=== PATIENT | male | born 1940 | race Caucasian/White ===

== ENCOUNTER → 2016-12-20 | Outpatient (CLI) | payer MEDICARE, OTHER ==
--- NOTE | 2016-12-20 15:24 | CT ---
EXAMINATION TYPE: CT angio chest DATE OF EXAM: 12/20/2016 3:13 PM COMPARISON: Previous study dated 01/10/2015 HISTORY: Pt states of bilateral leg swelling and SOB x2 weeks. CT DLP: 1157.1 mGycm Automated exposure control for dose reduction was used. CONTRAST: CTA scan of the thorax is performed without and with IV Contrast, patient injected with 80 mL of Omni paque 350, pulmonary embolism protocol. . FINDINGS: There is some dependent atelectasis in the dependent portions of both lungs. The lungs are otherwise clear. There is a 3.1 cm left thyroid nodule, unchanged from previous. There is mild right-sided gynecomastia. There is no significant axillary, mediastinal or hilar adenopathy. Heart size is upper limits of normal. There is no pleural or pericardial fluid. The aorta is normal in caliber without evidence of dissection. There is no evidence of pulmonary embolus. Note is made of a previous cholecystectomy. Visualized portions of the upper abdomen are otherwise un remarkable. There is hypertrophic spondylosis within the spine. IMPRESSION: 1. THIS EXAMINATION IS NEGATIVE FOR PULMONARY EMBOLUS. 2. STABLE, 3.1 CM LEFT THYROID NODULE. 3. MILD GYNECOMASTIA ON THE RIGHT. 4. DEGENERATIVE CHANGE WITHIN THE SPINE.
== END | disposition home or self-care (01) ==
LOC: RADCTMAIN 14:23
PROVIDERS: ATTEND Family Medicine
DX: R79.1 Abnormal coagulation profile (principal)
CPT/HCPCS: 71275; Q9967

== ENCOUNTER 2017-01-22 11:07 | Day surgery (SDC) | payer MEDICARE, OTHER ==
[2017-01-20 15:32] VITALS: BMI 37.3
[~2017-01-22 11:07] MED LIST: ALPRAZolam 0.25 MG TAB PO PRN; ASPIRIN 325 MG TAB PO ONE; SODIUM CHLORIDE 0.9% 1,000 ML in EMPTY BAG 1 BAG IV ONE
[2017-01-22 11:49] LABS: Basophils % (A) 1 %; CH 30.2; CHCM 32.3; Eosinophils # (A) 0.2 k/uL (0-0.7); Eosinophils % (A) 3 %; HCT 36.3 % (39.0-53.0); HDW 2.65; HGB 12.2 gm/dL (13.0-17.5); Luc # (Auto) 0.19; Luc % (Auto) 3; Lymphocytes % (A) 28 %; MCH 31.4 pg (25.0-35.0); MCHC 33.6 g/dL (31.0-37.0); MCV 93.7 fL (80.0-100.0); Monocytes # (A) 0.6 k/uL (0-1.0); Monocytes % (A) 8 %; Neutrophils # (A) 4.2 k/uL (1.3-7.7); Neutrophils % (A) 59 %; RBC 3.88 m/uL (4.30-5.90); RDW 13.3 % (11.5-15.5); WBC 7.1 k/uL (3.8-10.6)
[2017-01-22 12:02] LABS: Anion Gap 10 mmol/L; Blood Urea Nitrogen 23 mg/dL (9-20); Calcium 9.3 mg/dL (8.4-10.2); Carbon Dioxide 24 mmol/L (22-30); Chloride 109 mmol/L (98-107); Glucose 111 mg/dL (74-99); Non-African American GFR(MDRD) >60 (>60 ml/min/1.73 sqM); Potassium 4.5 mmol/L (3.5-5.1); Sodium 143 mmol/L (137-145)
[2017-01-22] MEDS ORDERED: LIDOCAINE 2% INJ 20 MG/ML (20 ML MDV) ONE (13:33)
[2017-01-22] MEDS ORDERED: fentaNYL (PF) 50 MCG/ML 2 ML AMP ONE (13:44)
[2017-01-22] MEDS ORDERED: MIDAZOLAM 2 MG/2 ML VIAL ONE (13:44)
[2017-01-22] MEDS: MIDAZOLAM 2 MG/2 ML VIAL IV ONE ×2 (13:49→13:58)
[2017-01-22] MEDS ORDERED: fentaNYL (PF) 50 MCG/ML 2 ML AMP IV ONE (13:49)
[2017-01-22] MEDS ORDERED: LIDOCAINE 2% INJ 20 MG/ML SQ ONE (13:59)
[2017-01-22] MEDS ORDERED: RX INFO: IV CONTRAST WAS GIVEN 1 EACH MISC MISCELLANE PRN (14:19)
[2017-01-22] MEDS: Acetaminophen-Codeine 300-30mg TAB PO PRN (16:48)
[2017-01-22] MEDS: SODIUM CHLORIDE 0.9% 1,000 ML IV SCH (20:12)
--- NOTE | 2017-01-22 20:58 | CC ---
DATE OF SERVICE: Mr. Delgado has been having intermittent episodes of chest pain and shortness of breath. Stress test showed evidence of inferobasal ischemia. In view of that, the patient was recommended to have a cardiac catheterization for definitive diagnosis. PROCEDURE: The right groin was prepped and draped in the usual manner and the skin was infiltrated with 2% Xylocaine. The right femoral artery was entered using Seldinger technique. A #6 Tajik sheath was placed in. Selective coronary angiography was then performed in multiple projections and left ventricular pressures were obtained. Patient tolerated the procedure well. HEMODYNAMICS: Left ventricular end-diastolic pressure was 24 to 28 mmHg prior to angiography. No gradient was noted across the aortic valve. SELECTIVE CORONARY ANGIOGRAPHY: Left main coronary artery is normal and patent. LAD is a good-caliber blood vessel and gives rise to good-sized diagonal branch. LAD and its branches are normal. Circumflex coronary artery gives rise to good-sized obtuse marginal branch. Circumflex coronary artery and its branches are normal. Right coronary artery is dominant in distribution and gives rise to the PDA and PLV branches. Right coronary artery and its branches are normal. FINAL IMPRESSION: This study reveals normal coronary arteries and left ventricular end-diastolic pressure is elevated. RECOMMENDATIONS: Continue medical treatment.
[2017-01-23] MEDS: Acetaminophen-Codeine 300-30mg TAB PO PRN (04:36)
[2017-01-23] MEDS: SODIUM CHLORIDE 0.9% 1,000 ML IV SCH (04:36)
[2017-01-23 08:14] VITALS: RESP 18
[2017-01-23] MEDS ORDERED: FUROSEMIDE 20 MG TAB PO SCH (09:00)
[2017-01-23] MEDS ORDERED: LISINOPRIL 20 MG TAB PO SCH (09:00)
[2017-01-23] MEDS ORDERED: PARoxetine 20 MG TAB PO SCH (09:00)
[2017-01-23 11:49] VITALS: BP 121/49; PULSE 79; TEMP 98.5
--- NOTE | 2017-01-23 12:19 | PN ---
Mr. Delgado underwent a cardiac catheterization yesterday. He was found to have normal coronary arteries. He is feeling well. The results of the cardiac catheterization were discussed with the patient. He is feeling well, right groin is normal. There is no evidence of any hematoma. First and second heart sounds are normal. Lungs are clear to auscultation and percussion. Patient is discharged home and he will follow up with Dr. Ann.
--- NOTE | 2017-01-29 10:45 | CDI ---
Mr. Delgado was seen on 01/22 for a cardiac catheterization. Per the anesthesia note the IV sedation box was checked and per the surgical profile report Versed is noted to be administered at 1349. Per new CMS (Centers for Medicare and Medicaid Services) guidelines there is a change by which the work of moderate/conscious sedation will be reimbursed separately. Further clarification of the documentation of IV sedation is needed for proper reporting purposes. Please clarify the type of sedation this patient received during the cardiac catheterization. Moderate/conscious sedation MAC (unconscious sedation) General Anesthesia Other (please specify) Please document your findings in an addendum to the Procedure Note. If you have any questions about this query, you may contact Software Solutions Architect, Caro Mcdaniel at between 8am and 6pm Friday-Friday Thank you for your time. SUZI Lyn
--- NOTE | 2017-02-26 09:02 | CDI ---
Mr. Delgado was seen on 01/22 for a cardiac catheterization. Per the anesthesia note the IV sedation box was checked and per the surgical profile report Versed is noted to be administered at 1349. Per new CMS (Centers for Medicare and Medicaid Services) guidelines there is a change by which the work of moderate/conscious sedation will be reimbursed separately. Further clarification of the documentation of IV sedation is needed for proper reporting purposes. Please clarify the type of sedation this patient received during the cardiac catheterization. Moderate/conscious sedation MAC (unconscious sedation) General Anesthesia Other (please specify) Please document your findings in an addendum to the Procedure Note. If you have any questions about this query, you may contact Production Machine Tender, Caro Mcdaniel at between 8am and 6pm Friday-Friday Thank you for your time. SUZI Lyn
== END 2017-01-23 14:30 ==
LOC: CATHCVL 11:07 → 3OBS 19:40 → CATHCVL 01-23 14:30
PROVIDERS: ATTEND Internal Medicine Cardiovascular Disease
DX: R07.9 Chest pain, unspecified (principal); R06.02 Shortness of breath; R94.39 Abnormal result of other cardiovascular function study; I11.0 Hypertensive heart disease with heart failure; I50.32 Chronic diastolic (congestive) heart failure; I45.2 Bifascicular block; E78.5 Hyperlipidemia, unspecified; I42.9 Cardiomyopathy, unspecified; G47.33 Obstructive sleep apnea (adult) (pediatric); Z99.89 Dependence on other enabling machines and devices; Z79.899 Other long term (current) drug therapy; Z87.891 Personal history of nicotine dependence; Z88.0 Allergy status to penicillin; Z86.718 Personal history of other venous thrombosis and embolism; Z82.3 Family history of stroke
CPT/HCPCS: 93458; 80048; 85025; C1894; C1769; J2001; J2250; J3010

== ENCOUNTER → 2018-04-25 | Outpatient (CLI) | payer MEDICARE, OTHER ==
[2018-04-25 09:59] LABS: Albumin 3.8 g/dL (3.5-5.0); Calcium 9.6 mg/dL (8.4-10.2); Potassium 5.2 mmol/L (3.5-5.1); Total Bilirubin 0.4 mg/dL (0.2-1.3); Total Protein 6.9 g/dL (6.3-8.2)
== END | disposition home or self-care (01) ==
LOC: LABWHC1 09:01
PROVIDERS: ATTEND Nurse Practitioner Adult Health
DX: E78.5 Hyperlipidemia, unspecified (principal); I10 Essential (primary) hypertension
CPT/HCPCS: 36415; 80053; 80061

== ENCOUNTER → 2018-06-29 | Outpatient (CLI) | payer MEDICARE, OTHER ==
[2018-06-29 16:52] LABS: Appearance,Urine Clear (Clear); Bilirubin,Urine Negative (Negative); Blood,Urine Negative (Negative); Color,Urine Yellow; Glucose,Urine (UA) Negative (Negative); Hyaline Casts,Urine 7 /lpf (0-2); Ketones,Urine Negative (Negative); Leukocyte Esterase,Urine Large (Negative); Mucus,Urine Occasional /hpf; Nitrite,Urine Negative (Negative); PH, Urine 5.5 (5.0-8.0); Protein,Urine 1+ (Negative); RBC,Urine 5 /hpf (0-5); Specific Gravity,Urine 1.016 (1.001-1.035); Squamous Epithelial Cell,Urine 1 /hpf (0-4); Urobilinogen,Urine <2.0 mg/dL (<2.0); WBC,Urine 12 /hpf (0-5)
== END | disposition home or self-care (01) ==
LOC: LABPAT 16:00
PROVIDERS: ATTEND Orthopaedic Surgery
DX: Z01.812 Encounter for preprocedural laboratory examination (principal); Z79.01 Long term (current) use of anticoagulants
CPT/HCPCS: 81001; 86850; 86900; 86901

== ENCOUNTER 2018-07-07 11:54 | Inpatient (IN) | payer MEDICARE, OTHER ==
[2018-06-30 12:02] VITALS: BMI 20.6
[~2018-07-07 11:54] MED LIST changes: +ACETAMINOPHEN TAB 500 MG TAB PO ONE; -ALPRAZolam 0.25 MG TAB PO PRN; -ASPIRIN 325 MG TAB PO ONE; +DEXAMETHASONE SOD PHOSPHATE 10 MG/ML 1 ML VIAL IV ONE; +MELOXICAM 7.5 MG TAB PO ONE; +MIDAZOLAM 2 MG/2 ML VIAL IV PRN; +ONDANSETRON 4 MG/2 ML VIAL IVP ONE; +ROPIVACAINE 246.25 MG, EPINEPHrine 0.5 MG, KETOROLAC 30 MG, cloNIDine HCL/PF 80 MCG, WA... MISCELLANE ONE; -SODIUM CHLORIDE 0.9% 1,000 ML in EMPTY BAG 1 BAG IV ONE; +TRANEXAMIC ACID 1,000 MG in SODIUM CHLORIDE 0.9% 50 ML IVPB ONE; +ceFAZolin IN SWFI 2 GM/20 ML SYRINGE IVP ONE; +fentaNYL (PF) 50 MCG/ML 2 ML AMP IV PRN
[2018-07-07] MEDS: LACTATED RINGERS 1,000 ML IV SCH (12:40)
[2018-07-07] MEDS ORDERED: LIDOCAINE 1% 20 ML VIAL (10MG/ML) FOR IV START INTRADERMA ONE (12:41)
[2018-07-07] MEDS ORDERED: fentaNYL (PF) 50 MCG/ML 2 ML AMP ONE (13:49)
[2018-07-07] MEDS ORDERED: MIDAZOLAM 2 MG/2 ML VIAL ONE (13:49)
[2018-07-07] MEDS ORDERED: PROPOFOL 10 MG/ML 20 ML VIAL IV ONE (13:49)
[2018-07-07] MEDS ORDERED: HEPARIN SODIUM,PORCINE 10,000 UNIT/ML 1 ML VIAL ONE (13:49)
[2018-07-07] MEDS ORDERED: SODIUM CHLORIDE 0.9% IRRIG 1,000 ML BTL IRRIGATION ONE (13:49)
[2018-07-07] MEDS ORDERED: HYDROcodone/APAP 5-325MG 1 EACH TAB PO PRN (14:00)
[2018-07-07] MEDS ORDERED: SODIUM CHLORIDE 0.9% 1,000 ML IV SCH (14:00)
[2018-07-07] MEDS ORDERED: ONDANSETRON 4 MG/2 ML VIAL IVP PRN (14:00)
[2018-07-07] MEDS ORDERED: DIAZEPAM 5 MG TAB PO PRN (14:00)
[2018-07-07] MEDS ORDERED: MAGNESIUM HYDROXIDE 2,400 MG/10 ML CUP PO PRN (14:00)
[2018-07-07] MEDS ORDERED: HYDROmorphone 1 MG/ML 1 ML SYRINGE IVP PRN ×3 (14:00)
[2018-07-07] MEDS ORDERED: NALOXONE 0.4 MG/ML 1 ML VIAL IV PRN (14:00)
[2018-07-07] MEDS ORDERED: hydrOXYzine PAMOATE 25 MG CAP PO PRN (14:00)
[2018-07-07] MEDS ORDERED: CLINDAMYCIN 150 MG/ML 4 ML VIAL IVPB ONE (14:03)
[2018-07-07] MEDS ORDERED: CLINDAMYCIN 1,800 MG in SODIUM CHLORIDE 0.9% IRRIGATIO 3,000 ML IRRIGATION ONE (14:26)
--- NOTE | 2018-07-07 15:27 | P.OP ---
Date of Procedure: 07/07/18 Preoperative Diagnosis: Severe AVN right hip Postoperative Diagnosis: Severe AVN right hip Procedure(s) Performed: Right total hip arthroplasty with a direct anterior approach Implants: Zamora and nephew Polarstem size 9 standard collar [employer]ora [employer] Nephew R3, 3 hole acetabular shell, 52 mm [employer]hew reflection 6.5 mm cancellus screw, 20 mm, 25 mm [employer]ora [employer]hew R3, XLPE 20 acetabular liner [employer]ora [employer]hew Oxinium femoral head 36 m, +0 All components were press-fit. The articulation is Oxinium on polyethylene. Anesthesia: MAC (The spinal did not provide adequate anesthesia), spinal Surgeon: Jimmy Chatterjee Accelerator Systems Director #1: Mel Sandy Estimated Blood Loss (ml): 300 (130 mL returned with Cell Saver) Pathology: other (Femoral head) Condition: stable Disposition: PACU Indications for Procedure: After failure of conservative treatment we discussed the surgical and nonsurgical treatment options at length. Patient wishes to proceed with a total hip arthroplasty with a direct anterior approach. Complications specific to this procedure were discussed at length, including but not limited to infection, leg length discrepancy, dislocation, and nerve injury. Patient is aware of all these complications and informed consent was obtained Operative Findings: The operative findings are consistent with severe AVN of the right hip Description of Procedure: Patient was seen and evaluated in the preoperative area, consent was reviewed, and the surgical site was marked with a skin marker. Patient was then brought to the operating room and given prophylactic antibiotics intravenously. 1 g of Tranexamic acid was also given. A spinal anesthetic was administered by the anesthesia department. The patient was then placed on the Warfield table with the bony prominences well-padded. The hip area was then prepped and draped in usual sterile fashion. The spinal did provide adequate anesthesia, so a MAC was performed as well. A universal timeout was then performed, which confirmed the patient's name, surgical site, ALLERGIES, and procedure being performed. Next the incision site was located at 1 cm distal and 1 cm lateral to the anterior superior iliac spine. The skin and subcutaneous tissues were sharply incised. Incision was carefully dissected down to the fascia overlying the tensor fascia leonardo muscle. This fascia was then incised in line with the incision. Next, using blunt finger dissection, the tensor fascia leonardo muscle was dissected off its investing fascia. The muscle was then carefully retracted laterally with a cobra retractor over the lateral neck of the femur. Next, the circumflex vessels were identified and cauterized using the AquaMantis device. The anterior hip capsule was then exposed. The capsule was then opened and an inverted T fashion. Cobra retractors were then placed intracapsularly. The proximal femur was then visualized. The femoral neck was then osteotomized appropriate level above the lesser trochanter. Small amount of traction was placed with the Warfield table. A small wedge of bone was then removed from the remaining femoral head. Next, using a corkscrew femoral head was easily removed from the acetabulum. On gross visual inspection, the femoral head had complete loss of articular cartilage in multiple periarticular osteophytes. Attention was then turned to the acetabulum. the acetabulum was exposed and any remaining labrum was excised. Sequential reaming of the acetabulum was performed using fluoroscopic guidance. When the appropriate size was reached, a trial was then placed. The position and fit of the trial was checked with fluoroscopy. The trial was then removed. Then, using fluoroscopic guidance, the final implant was impacted at 20 of anteversion and 40 of abduction, and fully seated in the acetabulum. 2 screws were then placed in the acetabulum. Again fluoroscopy was used to check position of the screws. Next, the liner was then impacted, with a 20 elevated liner located in the anterior superior quadrant. Component locking was confirmed. Attention was then directed to the femur. With the aid of the Warfield table, the femur was externally rotated to approximately 130, extended, and abducted under the opposite leg. A side hook was then placed under the proximal femur, and the side hook elevator was used to elevate the proximal femur. Retractors were then placed. A capsular release was performed, as well as a release of the conjoined tendon, which afforded excellent visualization of the proximal femur. Next, a box osteotome was used to lateralize the proximal femur. A hand stitcher was then used to locate the femoral canal. Sequential broaching was then performed with appropriate size which afforded excellent fixation in the proximal femur. A trial was then placed with appropriate head and neck, and the hip was gently reduced with the aid of the Warfield table. Fluoroscopy was then used to check position of the components, as well as to ensure equal leg lengths. The hip was then gently dislocated and the trials were then removed. Final implants were then impacted and the hip was again reduced. Final fluoroscopic x-rays confirmed that the components were in anatomic position, as well as equal leg lengths. The hip was also taken through range of motion, and found to be stable. The hip was then copiously irrigated with antibiotic solution with pulsatile lavage. The hip was then irrigated with Irrisept solution. The soft tissues were then injected with a ropivacaine solution, which consisted of 246.25 mg of ropivacaine, 0.5 mg of epinephrine, 30 mg of Toradol, 80 g of clonidine, and 48.45 mL of sterile water, for a total of 100 mL of fluid injected. A second dose of 1 g of Tranexamic acid was also given. the fascia was then closed with 2-0 strata fix suture. The subcutaneous tissue was closed with 3-0 Vicryl. The subcuticular tissue was closed with 3-0 strata fix suture. The skin was then closed with Dermabond glue and a sterile silver dressing. The patient was then transferred to the recovery room in stable condition. The printing assistant NARDA Flores was required due to the complexity of surgery, and the need for skilled surgical services asst for positioning, draping, exposure, retraction, and closure of the wound.
[2018-07-07] MEDS: HYDROmorphone 1 MG/ML 1 ML SYRINGE IVP ONE ×2 (16:04→16:10)
--- NOTE | 2018-07-07 16:10 | XR ---
EXAMINATION TYPE: XR Hip Limited RT DATE OF EXAM: 07/07/2018 CLINICAL HISTORY: Right hip pain and osteoarthritis. TECHNIQUE: Single AP portable view of the right hip is obtained immediately postoperatively. COMPARISON: None. FINDINGS: Metallic hardware from right hip arthroplasty is seen and appears satisfactory in alignment and position. Overlying soft tissue is unremarkable. IMPRESSION: Metallic hardware from right hip arthroplasty is satisfactory in position.
[2018-07-07] MEDS ORDERED: diphenhydrAMINE 50 MG/ML 1 ML VIAL IVP ONE (16:11)
--- NOTE | 2018-07-07 17:22 | XR ---
Limited right hip HISTORY: Right hip replacement 2 intraoperative C-arm images document the procedure.
--- NOTE | 2018-07-07 17:52 | FL ---
Fluoroscopy HISTORY: Hip replacement 36 seconds fluoroscopy time supplied to the referring clinician. 2 intraoperative C-arm images docum ent the procedure. See dictated report from orthopedic surgery.
[2018-07-07] MEDS ORDERED: HYDROmorphone 1 MG/ML 1 ML SYRINGE IVP ONE (18:09)
[2018-07-07] MEDS ORDERED: SODIUM CHLORIDE 0.9% 500 ML IV ONE ×2 (20:47→21:28)
[2018-07-07] MEDS: SENNOSIDES-DOCUSATE SODIUM 1 EACH TAB PO SCH (21:38)
[2018-07-07] MEDS: SODIUM CHLORIDE 0.9% 1,000 ML IV SCH (21:39)
[2018-07-08] MEDS: ceFAZolin IN SWFI 2 GM/20 ML SYRINGE IVP SCH ×2 (00:38→11:20)
[2018-07-08 07:45] LABS: Basophils % (A) 0 %; Eosinophils % (A) 0 %; HCT 30.3 % (39.0-53.0); HGB 9.5 gm/dL (13.0-17.5); Hypochromasia Moderate; Lymphocytes # (A) 0.9 k/uL (1.0-4.8); Lymphocytes % (A) 9 %; MCHC 31.4 g/dL (31.0-37.0); MCV 98.8 fL (80.0-100.0); Mean Platelet Volume 6.8; Monocytes # (A) 0.5 k/uL (0-1.0); Monocytes % (A) 6 %; Neutrophils # (A) 8.2 k/uL (1.3-7.7); Neutrophils % (A) 85 %; Platelet Count 203 k/uL (150-450); RBC 3.06 m/uL (4.30-5.90); WBC 9.7 k/uL (3.8-10.6)
[2018-07-08 09:12] LABS: Potassium 5.2 mmol/L (3.5-5.1); Total Bilirubin 0.4 mg/dL (0.2-1.3); Total Protein 5.9 g/dL (6.3-8.2)
--- NOTE | 2018-07-08 09:18 | P.PN ---
Subjective Progress Note Date: 07/08/18 This is a 78-year-old male who is status post right total hip arthroplasty. This is postoperative day #1. Patient is seen and evaluated at bedside with Dr. Jimmy Chatterjee. Patient states that his pain is well controlled and he has not been up and out of bed with physical therapy yet. Patient denies any fever/ chills, numbness, weakness, tingling, abdominal pain, shortness of breath or chest pain. Objective - Vital Signs Vital signs: Vital Signs Temp 97.8 F 07/08/18 07:00 Pulse 56 L 07/08/18 07:00 Resp 12 07/08/18 07:00 BP 95/51 07/08/18 07:00 Pulse Ox 100 07/08/18 07:00 Intake & Output 07/07/18 07/08/18 07/08/18 18:59 06:59 18:59 Intake Total 976 1480 Output Total 300 Balance 676 1480 Weight 112.491 kg Intake: IV 976 Intake, IV Titration 1230 Amount Sodium Chloride 0.9% 1, 100 000 ml @ 100 mls/hr IV . Q10H [facility] Rx#:[id number] Sodium Chloride 0.9% 1, 130 000 ml @ 65 mls/hr IV . [id number] [facility] Rx#:[id number] Sodium Chloride 0.9% 500 500 ml @ 999 mls/hr IV .Q31M [facility] Rx#:[id number] Sodium Chloride 0.9% 500 500 ml @ 999 mls/hr IV .Q31M [facility] Rx#:[id number] Oral 250 Output: Estimated Blood Loss 300 Other: Voiding Method Urinal - Exam Vital signs are stable. Patient is in no acute distress and is alert and oriented 3. Calf is soft and nontender to palpation. Dressing is clean, dry, and intact. Patient has full foot and ankle motion without pain or difficulty. Neurovascular status and circulatory status are intact. - Labs CBC & Chem 7: 07/08/18 06:37 07/08/18 06:37 Labs: Abnormal Lab Results - Last 24 Hours (Table) 07/08/18 07/08/18 Range/Units 06:37 06:37 RBC 3.06 L (4.30-5.90) m/uL Hgb 9.5 L (13.0-17.5) gm/dL Hct 30.3 L (39.0-53.0) % Neutrophils # 8.2 H (1.3-7.7) k/uL Lymphocytes # 0.9 L (1.0-4.8) k/uL Potassium 5.2 H (3.5-5.1) mmol/L Chloride 113 H (98-107) mmol/L BUN 26 H (9-20) mg/dL Glucose 105 H (74-99) mg/dL Calcium 8.0 L (8.4-10.2) mg/dL Total Protein 5.9 L (6.3-8.2) g/dL Albumin 3.0 L (3.5-5.0) g/dL Assessment and Plan (1) Avascular necrosis of bone of right hip Current Visit: Yes Status: Acute Code(s): M87.051 - IDIOPATHIC ASEPTIC NECROSIS OF RIGHT FEMUR SNOMED Code(s): 340922635 (2) Status post total hip replacement, right Current Visit: Yes Status: Acute Code(s): Z96.641 - PRESENCE OF RIGHT ARTIFICIAL HIP JOINT SNOMED Code(s): 100282757404 Plan: Continue routine postop care. Continue antocoagulation with Xarelto. Weightbearing as tolerated with a walker. Leave dressing in place for 10 days. Likely discharge to rehab Friday.
[2018-07-08] MEDS: LACTATED RINGERS 1,000 ML IV SCH (09:33)
[2018-07-08] MEDS: SODIUM CHLORIDE 0.9% 1,000 ML IV SCH ×2 (09:35→15:51)
[2018-07-08] MEDS: RIVAROXABAN 10 MG TAB PO SCH (09:35)
[2018-07-08] MEDS: PARoxetine 20 MG TAB PO SCH (11:21)
--- NOTE | 2018-07-08 14:01 | P.PN ---
Subjective Progress Note Date: 07/08/18 This is a 78-year-old male patient of Dr. Kong. Patient presents to the hospital for an elective right total hip arthroplasty due to severe AVN of the right hip with Dr. Chatterjee. Patient has medical history asthma brain cancer, deep is currently not on anticoagulation for history in 2012. Hyperlipidemia, hypertension, osteoarthritis, sleep apnea and cholecystectomy. Patient is currently postop day 1. At this time patient denies chest pain or shortness of breath. Patient denies nausea vomiting or diarrhea. Patient denies urinary burning or frequency patient's blood pressure in the 90s and heart rate 50s. Lisinopril currently on hold. Objective - Vital Signs Vital signs: Vital Signs Temp 97.8 F 07/08/18 07:00 Pulse 56 L 07/08/18 07:00 Resp 12 07/08/18 07:00 BP 95/51 07/08/18 07:00 Pulse Ox 100 07/08/18 07:00 Intake & Output 07/07/18 07/08/18 07/08/18 18:59 06:59 18:59 Intake Total 976 1480 Output Total 300 Balance 676 1480 Weight 112.491 kg Intake: IV 976 Intake, IV Titration 1230 Amount Sodium Chloride 0.9% 1, 100 000 ml @ 100 mls/hr IV . Q10H [facility] Rx#:[id number] Sodium Chloride 0.9% 1, 130 000 ml @ 65 mls/hr IV . [id number] [facility] Rx#:[id number] Sodium Chloride 0.9% 500 500 ml @ 999 mls/hr IV .Q31M [facility] Rx#:[id number] Sodium Chloride 0.9% 500 500 ml @ 999 mls/hr IV .Q31M [facility] Rx#:[id number] Oral 250 Output: Estimated Blood Loss 300 Other: Voiding Method Urinal Urinal - Exam Head normocephalic Neck supple Lungs clear to auscultation bilaterally no wheezing or crackles Heart regular rate and rhythm S1-S2, no rub or gallop Abdomen is soft nontender nondistended positive bowel sounds no hepatosplenomegaly Extremities no edema. right hip Dressing clean dry and intact Neuro alert and orientated to 3 - Labs CBC & Chem 7: 07/08/18 06:37 07/08/18 06:37 Labs: Abnormal Lab Results - Last 24 Hours (Table) 07/08/18 07/08/18 Range/Units 06:37 06:37 RBC 3.06 L (4.30-5.90) m/uL Hgb 9.5 L (13.0-17.5) gm/dL Hct 30.3 L (39.0-53.0) % Neutrophils # 8.2 H (1.3-7.7) k/uL Lymphocytes # 0.9 L (1.0-4.8) k/uL Potassium 5.2 H (3.5-5.1) mmol/L Chloride 113 H (98-107) mmol/L BUN 26 H (9-20) mg/dL Glucose 105 H (74-99) mg/dL Calcium 8.0 L (8.4-10.2) mg/dL Total Protein 5.9 L (6.3-8.2) g/dL Albumin 3.0 L (3.5-5.0) g/dL Assessment and Plan Assessment: 1. Status post total right hip arthroplasty due to severe AVN right hip with Dr. Chatterjee. patient is currently post op day 1. Patient currently on xarelto for DVT prophylaxis per surgical services. Pain medication per surgical services. 2. History of asthma. No signs of exacerbation at this time 3. History of COPD. No signs of exacerbation at this time 4. History of brain cancer. Patient states he had brain cancer 16 years old 5. History of deep vein thrombosis. Patient stated he had DVT in his left leg in 2012. completed treatment 6. History of hyperlipidemia. Resume home medication 7. Essential hypertension. Patient's blood pressure currently in the 90s. The Cipro currently on hold 8. Osteoarthritis 9. History of sleep apnea DVT prophylaxis Xarelto, GI prophylaxis Pepcid Thank you for this consultation we'll continue to follow patient closely throughout stay plan for discharge to rehab when cleared Time with Patient: Greater than 30 (Greater than 60% of the total time spent in counseling and coordination of care. I performed an examination of the patient and discussed their management with the Nurse Practitioner. I have reviewed the Nurse Practitioner's notes and agree with the documented findings and plan of care)
[2018-07-08] MEDS: HYDROcodone/APAP 5-325MG 1 EACH TAB PO PRN ×2 (15:51→21:24)
[2018-07-08] MEDS: ATORVASTATIN 20 MG TAB PO SCH (19:47)
[2018-07-08] MEDS: SENNOSIDES-DOCUSATE SODIUM 1 EACH TAB PO SCH (19:47)
[2018-07-09] MEDS: SODIUM CHLORIDE 0.9% 1,000 ML IV SCH ×3 (02:18→22:38)
[2018-07-09] MEDS: HYDROcodone/APAP 5-325MG 1 EACH TAB PO PRN ×4 (02:50→21:49)
[2018-07-09] MEDS: LACTATED RINGERS 1,000 ML IV SCH (04:12)
[2018-07-09 07:17] LABS: Basophils % (A) 0 %; Eosinophils # (A) 0.1 k/uL (0-0.7); Eosinophils % (A) 1 %; HCT 27.7 % (39.0-53.0); HGB 8.7 gm/dL (13.0-17.5); Hypochromasia Slight; Lymphocytes # (A) 1.7 k/uL (1.0-4.8); Lymphocytes % (A) 22 %; MCH 30.6 pg (25.0-35.0); MCHC 31.4 g/dL (31.0-37.0); MCV 97.6 fL (80.0-100.0); Mean Platelet Volume 6.6; Monocytes # (A) 0.5 k/uL (0-1.0); Monocytes % (A) 7 %; Neutrophils # (A) 5.2 k/uL (1.3-7.7); Neutrophils % (A) 69 %; Platelet Count 188 k/uL (150-450); RBC 2.84 m/uL (4.30-5.90); RDW 13.7 % (11.5-15.5); WBC 7.6 k/uL (3.8-10.6)
[2018-07-09 08:02] LABS: Albumin 2.7 g/dL (3.5-5.0); Potassium 4.3 mmol/L (3.5-5.1); Total Bilirubin 0.3 mg/dL (0.2-1.3); Total Protein 5.4 g/dL (6.3-8.2)
--- NOTE | 2018-07-09 08:33 | P.PN ---
Subjective Progress Note Date: 07/09/18 This is a 78-year-old male who is status post right total hip arthroplasty. This is postoperative day #2. Patient complains of some pain in the right hip today. Patient states that he was able to sit up in a chair yesterday. Patient denies any fever/chills, numbness, weakness, tingling, abdominal pain, shortness of breath or chest pain. Objective - Vital Signs Vital signs: Vital Signs Temp 98.6 F 07/09/18 07:20 Pulse 71 07/09/18 07:20 Resp 16 07/09/18 07:20 BP 124/66 07/09/18 07:20 Pulse Ox 97 07/09/18 07:20 Intake & Output 07/08/18 07/09/18 07/09/18 18:59 06:59 18:59 Intake Total 800 800 Output Total 525 Balance 800 275 Intake: Intake, IV Titration 800 800 Amount Sodium Chloride 0.9% 1, 800 800 000 ml @ 100 mls/hr IV . Q10H [facility] Rx#:[id number] Output: Urine 525 Other: Voiding Method Urinal # Voids 3 - Exam Vital signs are stable. Patient is in no acute distress and is alert and oriented 3. Calf is soft and nontender to palpation. Dressing is clean, dry, and intact. Patient has full foot and ankle motion without pain or difficulty. Neurovascular status and circulatory status are intact. - Labs CBC & Chem 7: 07/09/18 06:39 07/09/18 06:39 Labs: Abnormal Lab Results - Last 24 Hours (Table) 07/08/18 07/09/18 07/09/18 Range/Units 06:37 06:39 06:39 RBC 2.84 L (4.30-5.90) m/uL Hgb 8.7 L (13.0-17.5) gm/dL Hct 27.7 L (39.0-53.0) % Potassium 5.2 H (3.5-5.1) mmol/L Chloride 113 H 114 H (98-107) mmol/L BUN 26 H (9-20) mg/dL Glucose 105 H 120 H (74-99) mg/dL Calcium 8.0 L 8.0 L (8.4-10.2) mg/dL Alkaline Phosphatase 37 L (38-126) U/L Total Protein 5.9 L 5.4 L (6.3-8.2) g/dL Albumin 3.0 L 2.7 L (3.5-5.0) g/dL Assessment and Plan Assessment: Patient's past medical history is significant for asthma, COPD, history of brain cancer at 16yo, history of deep vein thrombosis, history of hyperlipidemia , essential hypertension and history of sleep apnea (1) Avascular necrosis of bone of right hip Current Visit: Yes Status: Acute Code(s): M87.051 - IDIOPATHIC ASEPTIC NECROSIS OF RIGHT FEMUR SNOMED Code(s): 505096299 (2) Status post total hip replacement, right Current Visit: Yes Status: Acute Code(s): Z96.641 - PRESENCE OF RIGHT ARTIFICIAL HIP JOINT SNOMED Code(s): 023195240709 Plan: Continue routine postop care. Continue antocoagulation with Xarelto. Weightbearing as tolerated with a walker. Leave dressing in place for 10 days. Likely discharge to rehab Friday.
[2018-07-09] MEDS: PARoxetine 20 MG TAB PO SCH (09:37)
[2018-07-09] MEDS: RIVAROXABAN 10 MG TAB PO SCH (09:37)
[2018-07-09] MEDS: FAMOTIDINE 20 MG TAB PO SCH (09:37)
--- NOTE | 2018-07-09 13:26 | P.PN ---
Subjective Progress Note Date: 07/09/18 This is a 78-year-old male patient of Dr. Kong. Patient presents to the hospital for an elective right total hip arthroplasty due to severe AVN of the right hip with Dr. Chatterjee. Patient has medical history asthma brain cancer, deep is currently not on anticoagulation for history in 2012. Hyperlipidemia, hypertension, osteoarthritis, sleep apnea and cholecystectomy. Patient is currently postop day 1. At this time patient denies chest pain or shortness of breath. Patient denies nausea vomiting or diarrhea. Patient denies urinary burning or frequency patient's blood pressure in the 90s and heart rate 50s. Lisinopril currently on hold. 07/09/2018 status post right total hip arthroplasty postoperative day #2. Patient reports pain is tolerable. He is sitting at bedside chair. Denies any chest pain or shortness of breath. Denies any nausea or vomiting. He is passing gas. No bowel movement yet. Denies any difficulty urinating. Objective - Vital Signs Vital signs: Vital Signs Temp 98.6 F 07/09/18 07:20 Pulse 71 07/09/18 07:20 Resp 16 07/09/18 07:20 BP 124/66 07/09/18 07:20 Pulse Ox 97 07/09/18 07:20 Intake & Output 07/08/18 07/09/18 07/09/18 18:59 06:59 18:59 Intake Total 800 800 Output Total 525 Balance 800 275 Intake: Intake, IV Titration 800 800 Amount Sodium Chloride 0.9% 1, 800 800 000 ml @ 100 mls/hr IV . Q10H ESTEFANY Rx#:[id number] Output: Urine 525 Other: Voiding Method Urinal Urinal # Voids 3 - Exam Head normocephalic Neck supple Lungs clear to auscultation bilaterally no wheezing or crackles Heart regular rate and rhythm S1-S2, no rub or gallop Abdomen is soft nontender nondistended positive bowel sounds no hepatosplenomegaly Extremities no edema. Right hip dressing clean dry and intact. Ice packs in place. Neuro alert and orientated to 3 - Labs CBC & Chem 7: 07/09/18 06:39 07/09/18 06:39 Labs: Abnormal Lab Results - Last 24 Hours (Table) 07/09/18 07/09/18 Range/Units 06:39 06:39 RBC 2.84 L (4.30-5.90) m/uL Hgb 8.7 L (13.0-17.5) gm/dL Hct 27.7 L (39.0-53.0) % Chloride 114 H (98-107) mmol/L Glucose 120 H (74-99) mg/dL Calcium 8.0 L (8.4-10.2) mg/dL Alkaline Phosphatase 37 L (38-126) U/L Total Protein 5.4 L (6.3-8.2) g/dL Albumin 2.7 L (3.5-5.0) g/dL Assessment and Plan Assessment: 1. Status post total right hip arthroplasty due to severe AVN right hip with Dr. Chatterjee. patient is currently post op day 2. Patient currently on xarelto for DVT prophylaxis per surgical services. Pain medication per surgical services. 2. History of asthma. No signs of exacerbation at this time 3. History of COPD. No signs of exacerbation at this time 4. History of brain cancer. Patient states he had brain cancer 16 years old 5. History of deep vein thrombosis. Patient stated he had DVT in his left leg in 2012. completed treatment 6. History of hyperlipidemia. Resume home medication 7. Essential hypertension. Hypotension improved. Lisinopril remains on hold. 8. Osteoarthritis 9. History of sleep apnea 10. Expected acute blood loss anemia secondary to surgery. Hemoglobin 8.7. Ferrous sulfate 325 mg twice a day. DVT prophylaxis Xarelto, GI prophylaxis Pepcid I performed an examination of the patient and discussed their management with the physician Area Captain. I have reviewed the Physician Area Captain's notes and agree with the documented findings and plan of care
[2018-07-09 19:16] VITALS: RESP 16
[2018-07-09] MEDS: FERROUS SULFATE 325 MG TAB PO SCH (20:19)
[2018-07-09] MEDS: ATORVASTATIN 20 MG TAB PO SCH (20:19)
[2018-07-09] MEDS: SENNOSIDES-DOCUSATE SODIUM 1 EACH TAB PO SCH (20:19)
[2018-07-10] MEDS: LACTATED RINGERS 1,000 ML IV SCH (04:42)
[2018-07-10] MEDS: HYDROcodone/APAP 5-325MG 1 EACH TAB PO PRN (04:52)
--- NOTE | 2018-07-10 08:02 | P.DS ---
Providers Date of admission: 07/07/18 11:54 Expected date of discharge: 07/10/18 Attending physician: Jimmy Chatterjee Consults: 07/07/18 14:00 Consult Physician Routine Consulting Provider: Zenon Nascimento Consult Reason/Comments: medical management and anticoagulation Do you want consulting provider notified?: Yes Primary care physician: Tracy Chua - Discharge Diagnosis(es) (1) Avascular necrosis of bone of right hip Current Visit: Yes Status: Acute (2) Status post total hip replacement, right Current Visit: Yes Status: Acute Hospital Course: This is a 78-year-old male with known history of avascular necrosis of the right hip. The patient's past medical history is significant for asthma, COPD, history of brain cancer at 16yo, history of deep vein thrombosis, history of hyperlipidemia, essential hypertension and history of sleep apnea. The patient presents for evaluation. After discussion and consideration patient elects to proceed with total hip arthroplasty. The patient is seen preoperatively by Dr. Chatterjee and medically cleared for surgery by their primary care physician. Patient is admitted to [facility] on 07/07/2018 for total hip arthroplasty. The procedures performed without complication or sequelae. The patient is doing well postoperatively. Labs and vital signs are stable on day of discharge. On day of discharge patient's hip incision is healing well. There is minimal erythema. There is no drainage noted at this time. There is minimal soft tissue swelling to the hip and thigh. Calves are soft and nontender to palpation. Patient has full foot and ankle motion without difficulty or pain. Neurovascular status to the right lower extremity is intact. Patient is discharged to rehab in good condition. Please see med rec for accurate list of home medications. Plan - Discharge Summary Discharge Rx Participant: Yes New Discharge Prescriptions: New HYDROcodone/APAP 5-325MG [Coy 5-325] 1 - 2 tab PO Q4-6H PRN #84 tab PRN Reason: Pain Rivaroxaban [Xarelto] 10 mg PO DAILY #30 tab Sennosides [Senokot] 1 tab PO BID #60 tablet No Action PARoxetine HCL [Paxil] 40 mg PO DAILY Lisinopril [Zestril] 20 mg PO DAILY Acetaminophen with Codeine [Tylenol w/codeine #4] 1 tab PO Q4-6H PRN PRN Reason: Pain Simvastatin [Zocor] 40 mg PO HS Discharge Medication List PARoxetine HCL [Paxil] 40 mg PO DAILY 06/08/14 [History] Lisinopril [Zestril] 20 mg PO DAILY 01/20/17 [History] Acetaminophen with Codeine [Tylenol w/codeine #4] 1 tab PO Q4-6H PRN 06/30/18 [ History] Simvastatin [Zocor] 40 mg PO HS 06/30/18 [History] HYDROcodone/APAP 5-325MG [Coy 5-325] 1 - 2 tab PO Q4-6H PRN #84 tab 07/10/18 [ Rx] Rivaroxaban [Xarelto] 10 mg PO DAILY #30 tab 07/10/18 [Rx] Sennosides [Senokot] 1 tab PO BID #60 tablet 07/10/18 [Rx] Follow up Appointment(s)/Referral(s): Jimmy Chatterjee DO [Doctor of Osteopathic Medicine] - 2 Weeks Activity/Diet/Wound Care/Special Instructions: Weightbearing as tolerated with walker Leave dressing intact. Dressing may be removed by home care nurse in 10 days. May shower with dressing on. Follow-up with [facility] in 2 weeks, please call with any questions or concerns [phone] Discharge Disposition: TRANSFER TO SNF/ECF
[2018-07-10 08:05] LABS: Basophils % (A) 0 %; Eosinophils # (A) 0.2 k/uL (0-0.7); Eosinophils % (A) 2 %; HCT 29.5 % (39.0-53.0); HGB 9.3 gm/dL (13.0-17.5); Hypochromasia Slight; Lymphocytes # (A) 1.6 k/uL (1.0-4.8); Lymphocytes % (A) 20 %; MCH 29.8 pg (25.0-35.0); MCHC 31.4 g/dL (31.0-37.0); MCV 95.2 fL (80.0-100.0); Mean Platelet Volume 6.7; Monocytes # (A) 0.5 k/uL (0-1.0); Monocytes % (A) 7 %; Neutrophils # (A) 5.7 k/uL (1.3-7.7); Neutrophils % (A) 70 %; Platelet Count 209 k/uL (150-450); RDW 13.4 % (11.5-15.5); WBC 8.2 k/uL (3.8-10.6)
[2018-07-10 08:21] LABS: ALT 19 U/L (21-72); AST 28 U/L (17-59); Alkaline Phosphatase 43 U/L (38-126); Anion Gap 4 mmol/L; Blood Urea Nitrogen 12 mg/dL (9-20); Calcium 8.6 mg/dL (8.4-10.2); Carbon Dioxide 29 mmol/L (22-30); Chloride 109 mmol/L (98-107); Glucose 114 mg/dL (74-99); Potassium 4.8 mmol/L (3.5-5.1); Sodium 142 mmol/L (137-145); Total Bilirubin 0.6 mg/dL (0.2-1.3); Total Protein 5.9 g/dL (6.3-8.2)
[2018-07-10] MEDS: SODIUM CHLORIDE 0.9% 1,000 ML IV SCH (09:12)
[2018-07-10] MEDS: PARoxetine 20 MG TAB PO SCH (09:23)
[2018-07-10] MEDS: FAMOTIDINE 20 MG TAB PO SCH (09:23)
[2018-07-10] MEDS: FERROUS SULFATE 325 MG TAB PO SCH (09:23)
[2018-07-10] MEDS: RIVAROXABAN 10 MG TAB PO SCH (09:23)
[2018-07-10 10:22] VITALS: BP 146/72; PULSE 72; TEMP 98.7
--- NOTE | 2018-07-10 12:12 | P.PN ---
Subjective Progress Note Date: 07/10/18 This is a 78-year-old male patient of Dr. Kong. Patient presents to the hospital for an elective right total hip arthroplasty due to severe AVN of the right hip with Dr. Chatterjee. Patient has medical history asthma brain cancer, deep is currently not on anticoagulation for history in 2012. Hyperlipidemia, hypertension, osteoarthritis, sleep apnea and cholecystectomy. Patient is currently postop day 1. At this time patient denies chest pain or shortness of breath. Patient denies nausea vomiting or diarrhea. Patient denies urinary burning or frequency patient's blood pressure in the 90s and heart rate 50s. Lisinopril currently on hold. 07/09/2018 status post right total hip arthroplasty postoperative day #2. Patient reports pain is tolerable. He is sitting at bedside chair. Denies any chest pain or shortness of breath. Denies any nausea or vomiting. He is passing gas. No bowel movement yet. Denies any difficulty urinating. 07/10/2018 patient is doing well. He is scheduled for discharge to [facility]. Patient denies any chest pain or shortness of breath. Denies any nausea or vomiting. Reports having bowel movements. Pain is controlled. Denies a difficult urinating. Hemoglobin is up to 9.3. Objective - Vital Signs Vital signs: Vital Signs Temp 98.7 F 07/10/18 07:00 Pulse 72 07/10/18 07:00 Resp 16 07/10/18 07:00 BP 146/72 07/10/18 07:00 Pulse Ox 99 07/10/18 07:00 Intake & Output 07/09/18 07/10/18 07/10/18 18:59 06:59 18:59 Intake Total 800 500 240 Output Total 400 400 Balance 800 100 -160 Intake: IV 800 Sodium Chloride 0.9% 1, 800 000 ml @ 100 mls/hr IV . Q10H ESTEFANY Rx#:[id number] Oral 500 240 Output: Urine 400 400 Other: Voiding Method Urinal Urinal Urinal # Voids 3 1 1 - Exam Head normocephalic Neck supple Lungs clear to auscultation bilaterally no wheezing or crackles Heart regular rate and rhythm S1-S2, no rub or gallop Abdomen is soft nontender nondistended positive bowel sounds no hepatosplenomegaly Extremities no edema. Right hip dressing clean dry and intact. Ice packs in place. Neuro alert and orientated to 3 - Labs CBC & Chem 7: 07/10/18 07:29 07/10/18 07:29 Labs: Abnormal Lab Results - Last 24 Hours (Table) 07/10/18 07/10/18 Range/Units 07:29 07:29 RBC 3.10 L (4.30-5.90) m/uL Hgb 9.3 L (13.0-17.5) gm/dL Hct 29.5 L (39.0-53.0) % Chloride 109 H (98-107) mmol/L Glucose 114 H (74-99) mg/dL ALT 19 L (21-72) U/L Total Protein 5.9 L (6.3-8.2) g/dL Albumin 3.0 L (3.5-5.0) g/dL Assessment and Plan Assessment: 1. Status post total right hip arthroplasty due to severe AVN right hip with Dr. Chatterjee. patient is currently post op day 2. Patient currently on xarelto for DVT prophylaxis per surgical services. Pain medication per surgical services. 2. History of asthma. No signs of exacerbation at this time 3. History of COPD. No signs of exacerbation at this time 4. History of brain cancer. Patient states he had brain cancer 16 years old 5. History of deep vein thrombosis. Patient stated he had DVT in his left leg in 2012. completed treatment 6. History of hyperlipidemia. Resume home medication 7. Essential hypertension. Hypotension improved. Lisinopril remains on hold. 8. Osteoarthritis 9. History of sleep apnea 10. Expected acute blood loss anemia secondary to surgery. Hemoglobin 9.3. Continue Ferrous sulfate 325 mg twice a day. Patient is medically stable for discharge. We'll have him follow up with his PCP in [address] Nascimento will follow him at [facility]. Recommend checking CBC in 1 week DVT prophylaxis Xarelto, GI prophylaxis Pepcid I performed an examination of the patient and discussed their management with the physician Furniture Upholsterer Apprentice. I have reviewed the Physician Furniture Upholsterer Apprentice's notes and agree with the documented findings and plan of care
== END 2018-07-10 13:09 | DRG 470 ==
LOC: 2ORMAIN 11:54 → 3SUR 18:21
PROVIDERS: ADMIT Orthopaedic Surgery; ATTEND Orthopaedic Surgery
PROC: 30233N0 Transfusion of Autologous Red Blood Cells into Peripheral Vein, Percutaneous Approach (ICD-10-PCS; 2018-07-07)
PROC: 0SR906A Replacement of Right Hip Joint with Oxidized Zirconium on Polyethylene Synthetic Substitute, Uncemented, Open Approach (ICD-10-PCS; principal; 2018-07-07 13:30)
DX: M87.051 Idiopathic aseptic necrosis of right femur (principal); I50.32 Chronic diastolic (congestive) heart failure; I42.9 Cardiomyopathy, unspecified; D62 Acute posthemorrhagic anemia; I11.0 Hypertensive heart disease with heart failure; J44.9 Chronic obstructive pulmonary disease, unspecified; G47.33 Obstructive sleep apnea (adult) (pediatric); M16.11 Unilateral primary osteoarthritis, right hip; E78.5 Hyperlipidemia, unspecified; I70.219 Atherosclerosis of native arteries of extremities with intermittent claudication, unspecified extremity; F32.9 Major depressive disorder, single episode, unspecified; N40.0 Benign prostatic hyperplasia without lower urinary tract symptoms; L30.9 Dermatitis, unspecified; F17.290 Nicotine dependence, other tobacco product, uncomplicated; E66.9 Obesity, unspecified; Z68.34 Body mass index [BMI] 34.0-34.9, adult; Z79.899 Other long term (current) drug therapy; Z96.642 Presence of left artificial hip joint; Z86.718 Personal history of other venous thrombosis and embolism; Z90.49 Acquired absence of other specified parts of digestive tract; Z85.841 Personal history of malignant neoplasm of brain; Z88.0 Allergy status to penicillin; I95.9 Hypotension, unspecified
CPT/HCPCS: 73501; 80053; 85025; 86850; 86891; 86900; 86901; 88305; 88311

== ENCOUNTER → 2018-10-15 | Outpatient (CLI) | payer MEDICARE, OTHER ==
[2018-10-15 14:39] LABS: HCT 39.9 % (39.0-53.0); HGB 12.7 gm/dL (13.0-17.5); Hypochromasia Slight; MCH 29.9 pg (25.0-35.0); MCHC 31.9 g/dL (31.0-37.0); MCV 93.6 fL (80.0-100.0); Mean Platelet Volume 6.6; Platelet Count 250 k/uL (150-450); RBC 4.27 m/uL (4.30-5.90); RDW 14.2 % (11.5-15.5); WBC 6.9 k/uL (3.8-10.6)
[2018-10-15 14:47] LABS: Potassium 5.1 mmol/L (3.5-5.1)
== END | disposition home or self-care (01) ==
LOC: LABPAT 14:21
PROVIDERS: ATTEND Internal Medicine Interventional Cardiology
DX: Z01.812 Encounter for preprocedural laboratory examination (principal); E78.1 Pure hyperglyceridemia; I10 Essential (primary) hypertension; I70.213 Atherosclerosis of native arteries of extremities with intermittent claudication, bilateral legs
CPT/HCPCS: 36415; 80051; 82565; 84520; 85027

== ENCOUNTER → 2018-10-28 | Day surgery (SDC) | payer MEDICARE, OTHER ==
[2018-10-27 09:14] VITALS: BMI 35.9
[~2018-10-28] MED LIST changes: -ACETAMINOPHEN TAB 500 MG TAB PO ONE; +ALPRAZolam 0.25 MG TAB PO PRN; +ASPIRIN 325 MG TAB PO STA; -DEXAMETHASONE SOD PHOSPHATE 10 MG/ML 1 ML VIAL IV ONE; +HYDROmorphone 1 MG/ML 1 ML SYRINGE IVP ONE; +IOPAMIDOL-250 100ML BTL INJ ONE; +IOPAMIDOL-250 50ML BTL INTRAARTER ONE; +LIDOCAINE 1% INJ 10MG/ML (20 ML MDV) SQ ONE; -MELOXICAM 7.5 MG TAB PO ONE; -MIDAZOLAM 2 MG/2 ML VIAL IV PRN; +MIDAZOLAM 2 MG/2 ML VIAL IVP ONE; -ONDANSETRON 4 MG/2 ML VIAL IVP ONE; -ROPIVACAINE 246.25 MG, EPINEPHrine 0.5 MG, KETOROLAC 30 MG, cloNIDine HCL/PF 80 MCG, WA... MISCELLANE ONE; +SODIUM CHLORIDE 0.9% 1,000 ML IV ONE; +SODIUM CHLORIDE 0.9% 1,000 ML IV SCH; +SODIUM CHLORIDE 0.9% 1,000 ML in EMPTY BAG 1 BAG IV ONE; -TRANEXAMIC ACID 1,000 MG in SODIUM CHLORIDE 0.9% 50 ML IVPB ONE; -ceFAZolin IN SWFI 2 GM/20 ML SYRINGE IVP ONE; -fentaNYL (PF) 50 MCG/ML 2 ML AMP IV PRN
[2018-10-28 08:42] VITALS: RESP 16; TEMP 98
--- NOTE | 2018-10-28 10:07 | LTR ---
DATE OF SERVICE: 10/28/2018 RE: Sandy Sabine Dear Dr. Chua; Mr. Sabine Delgado underwent an abdominal aortogram and bilateral lower extremities runoff and that revealed severe [id number] disease bilaterally. I will follow up with the patient in the office and we will decide regarding the next step which include either conservative medical approach or percutaneous peripheral intervention. I want to thank you for allowing us to participate in his care and please do not hesitate to call if you have any question or concern. Sincerely, MD YEFRI Jensen / MOHITN: [id number] /
--- NOTE | 2018-10-28 10:11 | IR ---
Fluoroscopy HISTORY: Pain in foot and leg 3.4 minutes fluoroscopy time supplied to the referring clinician. 256 intraoperative C-arm images do cument the procedure. See dictated report from cardiology.
--- NOTE | 2018-10-28 10:24 | AN ---
ANGIOGRAPHY REPORT DATE OF SERVICE: October 28, 2018 PERFORMING PHYSICIAN: Pio Cruz MD, scientific process operator. PROCEDURE PERFORMED: 1. An abdominal aortogram. 2. Bilateral lower extremities runoff. 3. Selective bilateral common femoral artery angiogram. INDICATION: This is a pleasant 78-year-old gentleman who sees Dr. Ann in the office as an outpatient with hypertension and dyslipidemia who was experiencing bilateral lower extremities intermittent claudication and underwent an BELLA in the office and that came in to be abnormal and consistent with PAD. Because of that, a peripheral angiogram was advised. APPROACH: Right common femoral artery. COMPLICATION: None. LEVEL OF SEDATION: Moderate with sedation length of 24 minutes. PROCEDURE DESCRIPTION: After obtaining an informed consent, the patient was brought to the cardiac laboratory coordinator. The right common femoral artery was cannulated using micropuncture technique, the micropuncture wire passed easily then I placed a 4-Togolese sheath. Subsequently I did an abdominal aortogram and bilateral lower extremities runoff using 4-Togolese Omni Flush catheter which was initially placed at the level of the renal arteries then it was pulled into above the bifurcation of the aorta to right and left common iliac arteries. After that, I did selective right common femoral artery angiogram with injection through the sheath and I did select the left common femoral artery angiogram and injected through the Omni Flush catheter. The procedure was completed without any complication. SELECTIVE PERIPHERAL ANGIOGRAM: 1. The aorta appeared to be angiographically normal. 2. Renal Arteries: The right and left renal arteries appeared to be angiographically normal as well. 3. Common Iliac Arteries: The right and left common iliac arteries are patent. 4. Internal Iliac Arteries: The right and left internal iliac arteries are normal. 5. External iliac arteries are angiographically normal. 6. Common femoral arteries are angiographically normal. 7. Profunda: Both profunda are patent. 8. SFA: Bilateral SFA are angiographically normal. 9. Popliteal: Both popliteal are normal. 10.Below the knee: There is very tight right anterior tibial artery in the midportion and occluded left anterior tibial artery on the long segment. CONCLUSION: 1. Normal aortoiliac segments. 2. Normal femoral-popliteal segments. 3. Very tight right anterior tibial artery and occluded left anterior tibial artery. POSTPROCEDURE MANAGEMENT: I am going to follow up with the patient in the office next week. If the patient does have only symptoms of intermittent claudication, I would consider only maximize medical treatment and consider on him. If he does have evidence of resting pain or critical ischemia, at this point I would consider doing a ENVIRONMENTAL STUDIES DEPARTMENT CHAIR of the anterior tibials. YEFRI / CECE: [id number] /
[2018-10-28 13:50] VITALS: BP 126/60; PULSE 68
== END ==
LOC: CATHCVL 08:09
PROVIDERS: ATTEND Internal Medicine Interventional Cardiology
DX: I70.213 Atherosclerosis of native arteries of extremities with intermittent claudication, bilateral legs (principal); E78.5 Hyperlipidemia, unspecified; I11.0 Hypertensive heart disease with heart failure; I50.32 Chronic diastolic (congestive) heart failure; I42.9 Cardiomyopathy, unspecified; I45.10 Unspecified right bundle-branch block; G47.33 Obstructive sleep apnea (adult) (pediatric); Z99.89 Dependence on other enabling machines and devices; Z79.2 Long term (current) use of antibiotics; Z79.899 Other long term (current) drug therapy; Z86.718 Personal history of other venous thrombosis and embolism; Z72.0 Tobacco use; Z88.0 Allergy status to penicillin
CPT/HCPCS: 36200; 75625; 75716; C1769 ×4; C1894; J2250; J2001; J1170; Q9966 ×2

== ENCOUNTER → 2018-12-07 | Outpatient (CLI) | payer MEDICARE, OTHER ==
--- NOTE | 2018-12-07 16:42 | FL ---
EXAMINATION TYPE: FL UGI DATE OF EXAM: 12/07/2018 COMPARISON: None HISTORY: Epigastric pain TECHNIQUE: A double air contrast UGI study is performed. S possible examination was performed given the patient's physical limitations. Patient was cooperative for the examination. FINDINGS: Esophagus diastole normal caliber has normal contour to the gastroesophageal junction. Gastroesophage al junction opens to normal caliber. There is incomplete stripping of the esophageal bolus the horizo ntal drinking position. Multiple tertiary contractions were evident during the examination. Fundus body and antrum the stomach as visualized appear normal. No intraluminal or extramural defects are evident. Barium empties into the normally positioned duodenal cap and sweep. Reflux to the thoracic inlet was evident during the exam. Fluoroscopy time 1 minute 20 seconds. Images: 20 IMPRESSIONS: 1. Presbyesophagus. 2. Gastroesophageal reflux to the thoracic inlet. 3. No suspicious acute changes
== END | disposition home or self-care (01) ==
LOC: RADFLWHC 08:44
PROVIDERS: ATTEND Family Medicine
DX: K21.9 Gastro-esophageal reflux disease without esophagitis (principal); K22.8 Other specified diseases of esophagus
CPT/HCPCS: 74240

== ENCOUNTER 2018-12-10 13:27 | Inpatient (IN) | payer MEDICARE, OTHER ==
[2018-12-10] MEDS ORDERED: SODIUM CHLORIDE 0.9% 1,000 ML IV STA (14:28)
[2018-12-10] MEDS ORDERED: ASPIRIN 81 MG PO STA (14:28)
--- NOTE | 2018-12-10 14:43 | XR ---
EXAMINATION TYPE: XR chest 2V DATE OF EXAM: 12/10/2018 COMPARISON: Chest x-ray June 17, 2014. CTA chest December 20, 2016. HISTORY: Chest pain and arrhythmia. TECHNIQUE: Frontal and lateral views of the chest are obtained. FINDINGS: There is no focal air space opacity, pleural effusion, or pneumothorax seen. The cardiac silhouette size is upper limits of normal. Multilevel spurring in thoracic spine is present. IMPRESSION: No acute cardiopulmonary process.
--- NOTE | 2018-12-10 15:10 | ED ---
General Adult HPI <Jay Pruitt - Last Filed: 12/10/18 16:11> - General Source: patient, RN notes reviewed, old records reviewed Mode of arrival: wheelchair Limitations: no limitations <Azael Reyna - Last Filed: 12/10/18 18:09> - General Chief complaint: Recheck/Abnormal Lab/Rx Stated complaint: heart & kidney concerns-sent by Dr. Oconnor Seen by Provider: 12/10/18 14:06 - History of Present Illness Initial comments: 78-year-old male patient past medical history of asthma, hyperlipidemia, hypertension presents to ED at the recommendation of his primary care physician Dr. Chua after abnormal lab results. Patient reports that he has decreased kidney function. Patient additionally complains of 3 days of diarrhea and suprapubic, right lower quadrant, left lower quadrant abdominal pain. Patient additionally complains of 3 days of heart palpitation. Patient has had some shortness of breath while experiencing heart palpitations. Patient denies any chest pain. Patient denies any nausea or vomiting. Patient denies any syncope or recent falls. Patient denies other complaints. Systemic: Pt denies fatigue, myalgia, fever/chills, rash. Pt denies weakness, night sweats, weight loss. Neuro: Pt denies headache, visual disturbances, syncope or pre-syncope. HEENT: Pt denies ocular discharge or irritation, otalgia, rhinorrhea, pharyngitis or notable lymphadenopathy. Cardiopulmonary: Pt denies chest pain Abdominal/GI: Pt denies nausea and vomitting : Pt denies dysuria, burning w/ urination, frequency/urgency. Denies new onset urinary or bowel incontinence. MSK: Pt denies myalgia, loss of strength or function in extremities. Neuro: Pt denies new onset weakness, paresthesias. (Azael Reyna) - Related Data Home Medications Medication Instructions Recorded Confirmed PARoxetine HCL [Paxil] 40 mg PO DAILY 06/08/14 12/10/18 Lisinopril [Zestril] 20 mg PO DAILY 01/20/17 12/10/18 Simvastatin [Zocor] 40 mg PO HS 06/30/18 12/10/18 Aspirin 81 mg PO DAILY 10/27/18 12/10/18 Albuterol Inhaler [Ventolin Hfa 1 - 2 puff INHALATION RT-Q4H PRN 12/10/18 Inhaler] Cilostazol [Pletal] 100 mg PO BID 12/10/18 12/10/18 Famotidine [Pepcid] 20 mg PO BID 12/10/18 12/10/18 Allergies Allergy/AdvReac Type Severity Reaction Status Date / Time Penicillins Allergy Rash/Hives Verified 12/10/18 14:06 Review of Systems ROS Other: All systems not noted in ROS Statement are negative. <Jay Pruitt - Last Filed: 12/10/18 16:11> ROS Other: All systems not noted in ROS Statement are negative. <Azael Reyna - Last Filed: 12/10/18 18:09> ROS Statement: Those systems with pertinent positive or pertinent negative responses have been documented in the HPI. Past Medical History Past Medical History: Asthma, Hyperlipidemia, Hypertension, Osteoarthritis (OA) , Sleep Apnea/CPAP/BIPAP Additional Past Medical History / Comment(s): cpap, fell in october 2013 and fractured left hip, periodontal infection that delayed hip surgery History of Any Multi-Drug Resistant Organisms: None Reported Past Surgical History: Cholecystectomy, Orthopedic Surgery Additional Past Surgical History / Comment(s): brain tumor removed as a teen, [facility] Past Anesthesia/Blood Transfusion Reactions: No Reported Reaction Additional Past Anesthesia/Blood Transfusion Reaction / Comment(s): very severe sleep apnea per patient Past Psychological History: Anxiety, Depression Smoking Status: Former smoker - Past Family History Brother(s) Family Medical History: Cancer Additional Family Medical History / Comment(s): kidney,liver <Azael Reyna - Last Filed: 12/10/18 18:09> General Exam <Jay Pruitt - Last Filed: 12/10/18 16:11> Limitations: no limitations <Azael Reyna - Last Filed: 12/10/18 18:09> - General Exam Comments Initial Comments: Constitutional: NAD, AOX3, Pt has pleasant affect. HEENT: NC/AT, trachea midline, neck supple, no lymphadenopathy. Posterior pharynx non erythematous, without exudates. External ears appear normal, without discharge. Mucous membranes moist. Eyes PERRLA, EOM intact. There is no scleral icterus. No pallor noted. Cardiopulmonary: heart rate irregular, no murmurs, rubs or gallops, no JVD noted. Lungs CTAB in anterior and posterior kim. No peripheral edema. Abdominal exam: Abdomen soft and non-distended. Abdomen mildly tender to palpation in suprapubic, rlq and llq. No other areas of tenerness, no guarding no rigidity. Bowel sounds active in LLQ. No hepatosplenomegaly. No ecchymosis Neuro: CN II-XII grossly intact. No nuchal rigidity. MSK: No posterior calf tenderness bilaterally, homans sign negative bilaterally. Posterior tibialis and radial pulse +2 bilaterally. Sensation intact in upper and lower extremities. Full active ROM in upper and lower extremities, 5/5 stregnth. (Azael Reyna) Vital Signs 12/10/18 12/10/18 13:36 18:02 Temperature 97.7 F Pulse Rate 55 L 55 L Respiratory 16 16 Rate Blood Pressure 101/59 112/87 O2 Sat by Pulse 97 98 Oximetry Medical Decision Making - Lab Data Result diagrams: 12/10/18 14:50 12/10/18 14:50 <Jay Pruitt - Last Filed: 12/10/18 16:11> - Lab Data Result diagrams: 12/10/18 14:50 12/10/18 14:50 - EKG Data -: EKG Interpreted by Me (and dr pruitt ) <Azael Reyna - Last Filed: 12/10/18 18:09> - Medical Decision Making Patient reevaluated and resting comfortably in bed. Patient updated on results and plan. Patient does have mild tenderness lower abdomen. Patient has having diarrhea and does feel dehydrated. Lab results consistent with dehydration. Case discussed in detail with Dr. Nascimento, covering for Dr. Buckley, who will admit. Computed tomography scan of the abdomen as well as VQ scan have been ordered. (Jay Pruitt) 78-year-old male patient past medical history of asthma, hyperlipidemia, hypertension presents to ED at the recommendation of his primary care physician Dr. Chua after abnormal lab results. Patient reports that he has decreased kidney function. Patient additionally complains of 3 days of diarrhea and suprapubic, right lower quadrant, left lower quadrant abdominal pain. Patient additionally complains of 3 days of heart palpitation. Patient has had some shortness of breath while experiencing heart palpitations. Patient denies any chest pain. Patient denies any nausea or vomiting. Patient denies any syncope or recent falls. Patient denies other complaints. Pt VSS, afebrile. Physical exam did display an irregular heart rate, and RLQ, LLQ and suprpubic abdominal pain. Laboratory investigations revealed mild leukocytosis of 14.7. D-dimer is elevated at 1.18. Coagulation studies were within normal limits. CMP revealed a mild leukocytosis of 5.4. Carbon dioxide of 15. Creatinine of 2.35 , increase from 1.13 on 10/15/18. Troponin was negative. BNP was within normal limits. UA displayed +2 protein, 8 red blood cells, 27 white blood cells, 15 squamous. Chest x-ray revealed no prior pulmonary process. VQ scan displayed low probability for pulmonary embolism. CT of abdomen and pelvis is pending. EKG not concerning for acute ischemia. Patient was administered 1 g Rocephin for urinary tract infection. Patient to be admitted for further evaluation to Dr. Nascimento. Case discussed and pt seen by Dr. Pruitt. (Azael Reyna) - Lab Data Lab Results 12/10/18 12/10/18 12/10/18 Range/Units 14:50 14:50 14:50 WBC 14.7 H (3.8-10.6) k/uL RBC 4.70 (4.30-5.90) m/uL Hgb 13.5 (13.0-17.5) gm/dL Hct 43.1 (39.0-53.0) % MCV 91.8 (80.0-100.0) fL MCH 28.7 (25.0-35.0) pg MCHC 31.3 (31.0-37.0) g/dL RDW 14.5 (11.5-15.5) % Plt Count 450 (150-450) k/uL Neutrophils % 77 % Lymphocytes % 17 % Monocytes % 4 % Eosinophils % 1 % Basophils % 0 % Neutrophils # 11.2 H (1.3-7.7) k/uL Lymphocytes # 2.5 (1.0-4.8) k/uL Monocytes # 0.6 (0-1.0) k/uL Eosinophils # 0.2 (0-0.7) k/uL Basophils # 0.0 (0-0.2) k/uL Hypochromasia Slight PT (9.0-12.0) sec INR (<1.2) APTT (22.0-30.0) sec D-Dimer (<0.60) mg/L FEU Sodium 143 (137-145) mmol/L Potassium 5.4 H (3.5-5.1) mmol/L Chloride 114 H (98-107) mmol/L Carbon Dioxide 15 L (22-30) mmol/L Anion Gap 14 mmol/L BUN 48 H (9-20) mg/dL Creatinine 2.35 H (0.66-1.25) mg/dL Est GFR (CKD-EPI)AfAm 29 (>60 ml/min/1.73 sqM) Est GFR (CKD-EPI)NonAf 25 (>60 ml/min/1.73 sqM) Glucose 131 H (74-99) mg/dL Calcium 10.3 H (8.4-10.2) mg/dL Magnesium 2.0 (1.6-2.3) mg/dL Total Bilirubin 1.0 (0.2-1.3) mg/dL AST 42 (17-59) U/L ALT 52 (21-72) U/L Alkaline Phosphatase 91 (38-126) U/L Troponin I (0.000-0.034) ng/mL NT-Pro-B Natriuret Pep 106 pg/mL Total Protein 8.8 H (6.3-8.2) g/dL Albumin 4.6 (3.5-5.0) g/dL Urine Color Urine Appearance (Clear) Urine pH (5.0-8.0) Ur Specific [place] (1.001-1.035) Urine Protein (Negative) Urine Glucose (UA) (Negative) Urine Ketones (Negative) Urine Blood (Negative) Urine Nitrite (Negative) Urine Bilirubin (Negative) Urine Urobilinogen (<2.0) mg/dL Ur Leukocyte Esterase (Negative) Urine RBC (0-5) /hpf Urine WBC (0-5) /hpf Urine WBC Clumps (None) /hpf Ur Squamous Epith Cells (0-4) /hpf Amorphous Sediment (None) /hpf Urine Bacteria (None) /hpf Hyaline Casts (0-2) /lpf Urine Mucus (None) /hpf 12/10/18 12/10/18 12/10/18 Range/Units 14:50 14:50 14:50 WBC (3.8-10.6) k/uL RBC (4.30-5.90) m/uL Hgb (13.0-17.5) gm/dL Hct (39.0-53.0) % MCV (80.0-100.0) fL MCH (25.0-35.0) pg MCHC (31.0-37.0) g/dL RDW (11.5-15.5) % Plt Count (150-450) k/uL Neutrophils % % Lymphocytes % % Monocytes % % Eosinophils % % Basophils % % Neutrophils # (1.3-7.7) k/uL Lymphocytes # (1.0-4.8) k/uL Monocytes # (0-1.0) k/uL Eosinophils # (0-0.7) k/uL Basophils # (0-0.2) k/uL Hypochromasia PT 10.8 (9.0-12.0) sec INR 1.0 (<1.2) APTT 26.6 (22.0-30.0) sec D-Dimer 1.18 H (<0.60) mg/L FEU Sodium (137-145) mmol/L Potassium (3.5-5.1) mmol/L Chloride (98-107) mmol/L Carbon Dioxide (22-30) mmol/L Anion Gap mmol/L BUN (9-20) mg/dL Creatinine (0.66-1.25) mg/dL Est GFR (CKD-EPI)AfAm (>60 ml/min/1.73 sqM) Est GFR (CKD-EPI)NonAf (>60 ml/min/1.73 sqM) Glucose (74-99) mg/dL Calcium (8.4-10.2) mg/dL Magnesium (1.6-2.3) mg/dL Total Bilirubin (0.2-1.3) mg/dL AST (17-59) U/L ALT (21-72) U/L Alkaline Phosphatase (38-126) U/L Troponin I <0.012 (0.000-0.034) ng/mL NT-Pro-B Natriuret Pep pg/mL Total Protein (6.3-8.2) g/dL Albumin (3.5-5.0) g/dL Urine Color Dark Yellow Urine Appearance Turbid (Clear) Urine pH 5.5 (5.0-8.0) Ur Specific [place] 1.020 (1.001-1.035) Urine Protein 2+ H (Negative) Urine Glucose (UA) Trace H (Negative) Urine Ketones Negative (Negative) Urine Blood Negative (Negative) Urine Nitrite Negative (Negative) Urine Bilirubin 1+ H (Negative) Urine Urobilinogen 2.0 (<2.0) mg/dL Ur Leukocyte Esterase Small H (Negative) Urine RBC 8 H (0-5) /hpf Urine WBC 27 H (0-5) /hpf Urine WBC Clumps Few H (None) /hpf Ur Squamous Epith Cells 15 H (0-4) /hpf Amorphous Sediment Rare H (None) /hpf Urine Bacteria Occasional H (None) /hpf Hyaline Casts 63 H (0-2) /lpf Urine Mucus Rare H (None) /hpf - EKG Data EKG Comments: 1) ventricular rate 96, WI interval 222, QRS 114, QT/QTC 384/45. Sinus rhythm with first-degree AV block with PACs. Incomplete right bundle branch block. Left anterior fascicular block. No concern for acute ischemia. 2) ventricular rate 78, WI interval 236, QRS 110, QT/QTC 414/471. Since rhythm with first-degree AV block. Incomplete right bundle branch block. Left anterior fascicular block. No concern for acute ischemia. (Azael Reyna) Disposition <Jay Pruitt - Last Filed: 12/10/18 16:11> Is patient prescribed a controlled substance at d/c from ED?: No <Azael Reyna - Last Filed: 12/10/18 18:09> Clinical Impression: UTI (urinary tract infection), HARSHAD (acute kidney injury), Abdominal pain, Heart palpitations Disposition: ADMITTED IP TO THIS HOSP Condition: Serious Referrals: Tracy Chua MD [Primary Care Provider] - 1-2 days
[2018-12-10 15:20] LABS: Albumin 4.6 g/dL (3.5-5.0); Calcium 10.3 mg/dL (8.4-10.2); Potassium 5.4 mmol/L (3.5-5.1); Total Protein 8.8 g/dL (6.3-8.2)
[2018-12-10 15:26] LABS: Amorphous Sediment,Urine Rare /hpf; Appearance,Urine Turbid (Clear); Bacteria,Urine Occasional /hpf; Bilirubin,Urine 1+ (Negative); Blood,Urine Negative (Negative); Color,Urine Dark Yellow; Glucose,Urine (UA) Trace (Negative); Hyaline Casts,Urine 63 /lpf (0-2); Ketones,Urine Negative (Negative); Leukocyte Esterase,Urine Small (Negative); Mucus,Urine Rare /hpf; Nitrite,Urine Negative (Negative); PH, Urine 5.5 (5.0-8.0); Protein,Urine 2+ (Negative); RBC,Urine 8 /hpf (0-5); Squamous Epithelial Cell,Urine 15 /hpf (0-4)
[2018-12-10 15:27] LABS: Partial Thromboplastin Time 26.6 sec (22.0-30.0); Prothrombin Time 10.8 sec (9.0-12.0)
[2018-12-10 15:33] LABS: Basophils % (A) 0 %; Eosinophils # (A) 0.2 k/uL (0-0.7); Eosinophils % (A) 1 %; HCT 43.1 % (39.0-53.0); HGB 13.5 gm/dL (13.0-17.5); Hypochromasia Slight; Lymphocytes # (A) 2.5 k/uL (1.0-4.8); Lymphocytes % (A) 17 %; MCH 28.7 pg (25.0-35.0); MCHC 31.3 g/dL (31.0-37.0); MCV 91.8 fL (80.0-100.0); Mean Platelet Volume 6.1; Monocytes # (A) 0.6 k/uL (0-1.0); Monocytes % (A) 4 %; Neutrophils # (A) 11.2 k/uL (1.3-7.7); Neutrophils % (A) 77 %; Platelet Count 450 k/uL (150-450); RDW 14.5 % (11.5-15.5); WBC 14.7 k/uL (3.8-10.6)
[2018-12-10 15:45] LABS: D-Dimer 1.18 mg/L FEU (<0.60)
[2018-12-10] MEDS ORDERED: NALOXONE 0.4 MG/ML 1 ML VIAL IV PRN (16:42)
--- NOTE | 2018-12-10 17:18 | NM ---
EXAMINATION TYPE: NM pul vent and perfuse DATE OF EXAM: 12/10/2018 COMPARISON: NONE HISTORY: TECHNIQUE: Utilizing inhalation of 37.7 mCi Tc 99m DTPA aerosol and intravenous injection of 4.9 mCi of Tc 99m MAA, ventilation and perfusion images are acquired post injection in multiple projections. FINDINGS: There is mild matching defects involving the left lower lobe. There is no ventilation/perfusion misma tch. There is no segmental type perfusion defect. IMPRESSION: Mild matched defects in the left lower lobe are subsegmental. There is a low probability of pulmonary embolism.
--- NOTE | 2018-12-10 18:13 | CT ---
EXAMINATION TYPE: CT abdomen pelvis wo con DATE OF EXAM: 12/10/2018 COMPARISON: None HISTORY: Abnormal renal lab values. CT DLP: 979.9 mGycm Automated exposure control for dose reduction was used. TECHNIQUE: Helical acquisition of images was performed from the lung bases through the pelvis. FINDINGS: Lung bases are clear of consolidation. There is subsegmental atelectasis at the right lung base. Ther e is no pleural effusion. Heart size is normal. There is no pericardial effusion. Stomach appears sherron rly normal. There are clips from cholecystectomy. Liver shows no focal defect. Spleen and pancreas ap pear normal. Bile ducts are not dilated. There is no adrenal mass. Kidneys have normal contour. There is no evidence of a renal mass. There is no hydronephrosis. Abdominal aorta is atheromatous. There is no retroperitoneal adenopathy. There is no ascites. There is some high attenuation in the pelvis on the right sided could be barium in the l arge bowel. There is no evidence of free air. There is metal artifact that obscures detail in the pel vis. Bladder appears to distends smoothly. There is no free fluid in the pelvis. There is no evidence of free air. There is no mesenteric edema. There is no sign of a bowel obstruction. There are some s pondylotic changes in the lumbar spine. I see no bony destructive process. There is mild L4-5 disc sp tripp narrowing. There is no compression fracture. Appendix is not seen. There is no sign of appendicit is. There is no ascites. IMPRESSION: NO ACUTE ABNORMALITY OF THE ABDOMEN AND PELVIS. NO FOCAL RENAL DEFECT. RETAINED CONTRAST IN THE BOWEL . ATHEROSCLEROTIC VASCULAR DISEASE.
[2018-12-10 20:25] VITALS: BMI 32.8
[2018-12-10] MEDS ORDERED: ALBUTEROL NEBULIZED 2.5 MG/3 ML INHALATION PRN (21:13)
[2018-12-10] MEDS: SODIUM CHLORIDE 0.9% 1,000 ML IV SCH (23:41)
[2018-12-11] MEDS: SODIUM CHLORIDE 0.9% 1,000 ML IV SCH ×2 (04:42→08:04)
[2018-12-11] MEDS: PARoxetine 20 MG TAB PO SCH (08:03)
[2018-12-11] MEDS ORDERED: FAMOTIDINE 20 MG TAB PO SCH (09:00)
--- NOTE | 2018-12-11 09:12 | P.NPCON ---
History of Present Illness - Reason for Consult acute renal failure - History of Present Illness Reason for consultation: Acute kidney injury History of present illness: Patient is a 78-year-old male seen in renal consultation for acute kidney injury. Baseline creatinine is near 1. It was elevated at 2.35 this admission. Labs from today are pending. Patient presented to the hospital with diarrhea started about 2-3 days ago. Patient states the diarrhea is worse after he eats. He states that he's been keeping himself well hydrated by drinking adequate amounts of water. He does take lisinopril at home. Denies use of NSAIDs. No history of diabetes. No hematuria or dysuria. Denies family history of renal disease. Hemodynamically stable. No significant hypotension. Vital signs are stable. General: The patient appeared well nourished and normally developed. HEENT: Head exam is unremarkable. Neck is without jugular venous distension. LUNGS: Lungs are clear to auscultation and percussion. Breath sounds decreased. HEART: Rate and Rhythm are regular. First and second heart sounds normal. No murmurs, rubs or gallops. ABDOMEN: Abdominal exam reveals normal bowel sounds. Non-tender and non- distended. No evidence of peritonitis. EXTREMITITES: No clubbing, cyanosis, or edema. Past Medical History Past Medical History: Asthma, Hyperlipidemia, Hypertension, Osteoarthritis (OA) , Sleep Apnea/CPAP/BIPAP Additional Past Medical History / Comment(s): cpap, fell in october 2013 and fractured left hip, periodontal infection that delayed hip surgery History of Any Multi-Drug Resistant Organisms: None Reported Past Surgical History: Cholecystectomy, Orthopedic Surgery Additional Past Surgical History / Comment(s): brain tumor removed as a teen, [facility] Past Anesthesia/Blood Transfusion Reactions: No Reported Reaction Additional Past Anesthesia/Blood Transfusion Reaction / Comment(s): very severe sleep apnea per patient Past Psychological History: Anxiety, Depression Smoking Status: Former smoker Past Alcohol Use History: None Reported Additional Past Alcohol Use History / Comment(s): quit smoking 1961, smoked from age 13, cigars only(6 daily) Past Drug Use History: None Reported - Past Family History Brother(s) Family Medical History: Cancer Additional Family Medical History / Comment(s): kidney,liver Medications and Allergies Home Medications Medication Instructions Recorded Confirmed Type RX: PARoxetine HCL [Paxil] 40 mg PO DAILY 06/08/14 12/10/18 History RX: Lisinopril [Zestril] 20 mg PO DAILY 01/20/17 12/10/18 History RX: Simvastatin [Zocor] 40 mg PO HS 06/30/18 12/10/18 History RX: Aspirin 81 mg PO DAILY 10/27/18 12/10/18 History Albuterol Inhaler [Ventolin Hfa 1 - 2 puff INHALATION RT-Q4H PRN 12/10/18 History Inhaler] Cilostazol [Pletal] 100 mg PO BID 12/10/18 12/10/18 History Famotidine [Pepcid] 20 mg PO BID 12/10/18 12/10/18 History Allergies Allergy/AdvReac Type Severity Reaction Status Date / Time Penicillins Allergy Rash/Hives Verified 12/10/18 14:06 Physical Exam Vitals: Vital Signs Temp Pulse Pulse Resp BP BP Pulse Ox 12/11/18 07:00 97.7 F 75 16 122/56 97 12/10/18 23:05 97.7 F 46 L 15 138/62 95 12/10/18 19:55 97.6 F 54 L 16 134/70 98 12/10/18 18:02 55 L 16 112/87 98 12/10/18 13:36 97.7 F 55 L 16 101/59 97 Intake and Output 12/10/18 12/11/18 12/11/18 22:59 06:59 14:59 Intake Total 1300 Balance 1300 Intake: Intake, IV Titration 1200 Amount Sodium Chloride 0.9% 1, 1200 000 ml @ 120 mls/hr IV . [id number] [facility] Rx#:[id number] Oral 100 Other: Voiding Method Toilet # Voids 1 3 Results - Lab Results Most recent lab results Calcium 10.3 mg/dL (8.4-10.2) H 12/10/18 14:50 Magnesium 2.0 mg/dL (1.6-2.3) 12/10/18 14:50 12/10/18 14:50 12/10/18 14:50 Assessment and Plan Plan: Assessment: 1. Acute kidney injury mostly prerenal secondary to intravascular volume depletion from diarrhea and use of NADIR inhibitor. Creatinine 2.35 on admission. Labs from today are pending. Baseline creatinine is near 1. 2. Metabolic acidosis secondary to diarrhea. 3. Benign hypertension. Controlled. 4. Mild hyperkalemia secondary to acute kidney injury and metabolic acidosis. 5. Diarrhea. Possibly gastroenteritis vs gallbladder source?. CAT scan of the abdomen and pelvis was benign. Plan: Maintain normal saline at 120 mL an hour for now. May need to be changed to a bicarb drip if no improvement in acidosis. Follow-up morning labs. Consider GI consult. Follow-up cultures. Thank you for the consultation. I will continue to follow the patient with you during his hospital stay.
[2018-12-11 09:28] LABS: Calcium 9.3 mg/dL (8.4-10.2); Potassium 5.1 mmol/L (3.5-5.1)
[2018-12-11 09:31] LABS: Basophils % (A) 0 %; Eosinophils # (A) 0.2 k/uL (0-0.7); Eosinophils % (A) 2 %; HCT 42.7 % (39.0-53.0); HGB 13.1 gm/dL (13.0-17.5); Hypochromasia Slight; Lymphocytes # (A) 2.6 k/uL (1.0-4.8); Lymphocytes % (A) 24 %; MCH 28.9 pg (25.0-35.0); MCHC 30.8 g/dL (31.0-37.0); Mean Platelet Volume 6.7; Monocytes # (A) 0.5 k/uL (0-1.0); Monocytes % (A) 4 %; Neutrophils # (A) 7.5 k/uL (1.3-7.7); Neutrophils % (A) 69 %; Platelet Count 374 k/uL (150-450); RBC 4.54 m/uL (4.30-5.90); RDW 14.4 % (11.5-15.5); WBC 10.9 k/uL (3.8-10.6)
--- NOTE | 2018-12-11 09:41 | P.HPIM ---
History of Present Illness H&P Date: 12/11/18 This is a 78-year-old male patient of Dr. Buckley. Patient presented to the hospital with complaints of abnormal lab values. Patient was told by PCP. Decreased kidney function in 2 proceed to the ER for further evaluation. Patient reports that he's had 3 days of diarrhea and suprapubic right lower quadrant pain. Patient also reports that he's had increased heart palpitations over the past 3 days. Patient does have a history of asthma, hyperlipidemia, hypertension, osteoarthritis, sleep apnea, cholecystectomy and anxiety with depression. Chest x-ray completed in the ER showing no acute cardiopulmonary process. VQ scan completed showing mild matched state the proximal left lower lobe subsegmental there is a low probability of pulmonary embolism. EKG completed the ER showing sinus rhythm with first-degree AV block with premature atrial complexes in the right bundle branch block. CT of abdomen and pelvis completed showing no acute abnormality of the abdomen and pelvis. No focal renal defect. Retained contrast atherosclerotic vascular disease. Patient also positive for urinary tract infection. Patient started on Rocephin. Urine culture ordered. Nephrology services consulted. At this time patient denies any chest pain or shortness of breath. Patient is complaining of some lower abdominal pain patient denies nausea or vomiting. Patient denies any urinary burning or frequency. Review of Systems Please refer to HPI otherwise unremarkable Past Medical History Past Medical History: Asthma, Hyperlipidemia, Hypertension, Osteoarthritis (OA) , Sleep Apnea/CPAP/BIPAP Additional Past Medical History / Comment(s): cpap, fell in october 2013 and fractured left hip, periodontal infection that delayed hip surgery History of Any Multi-Drug Resistant Organisms: None Reported Past Surgical History: Cholecystectomy, Orthopedic Surgery Additional Past Surgical History / Comment(s): brain tumor removed as a teen, [facility] Past Anesthesia/Blood Transfusion Reactions: No Reported Reaction Additional Past Anesthesia/Blood Transfusion Reaction / Comment(s): very severe sleep apnea per patient Past Psychological History: Anxiety, Depression Smoking Status: Former smoker Past Alcohol Use History: None Reported Additional Past Alcohol Use History / Comment(s): quit smoking 1961, smoked from age 13, cigars only(6 daily) Past Drug Use History: None Reported - Past Family History Brother(s) Family Medical History: Cancer Additional Family Medical History / Comment(s): kidney,liver Medications and Allergies Home Medications Medication Instructions Recorded Confirmed Type PARoxetine HCL [Paxil] 40 mg PO DAILY 06/08/14 12/10/18 History Lisinopril [Zestril] 20 mg PO DAILY 01/20/17 12/10/18 History Simvastatin [Zocor] 40 mg PO HS 06/30/18 12/10/18 History Aspirin 81 mg PO DAILY 10/27/18 12/10/18 History Albuterol Inhaler [Ventolin Hfa 1 - 2 puff INHALATION RT-Q4H PRN 12/10/18 History Inhaler] Cilostazol [Pletal] 100 mg PO BID 12/10/18 12/10/18 History Famotidine [Pepcid] 20 mg PO BID 12/10/18 12/10/18 History Allergies Allergy/AdvReac Type Severity Reaction Status Date / Time Penicillins Allergy Rash/Hives Verified 12/10/18 14:06 Physical Exam Vitals: Vital Signs Temp Pulse Pulse Resp BP BP Pulse Ox 12/11/18 07:00 97.7 F 75 16 122/56 97 12/10/18 23:05 97.7 F 46 L 15 138/62 95 12/10/18 19:55 97.6 F 54 L 16 134/70 98 12/10/18 18:02 55 L 16 112/87 98 12/10/18 13:36 97.7 F 55 L 16 101/59 97 Intake and Output 12/10/18 12/11/18 12/11/18 22:59 06:59 14:59 Intake Total 1300 240 Balance 1300 240 Intake: Intake, IV Titration 1200 Amount Sodium Chloride 0.9% 1, 1200 000 ml @ 120 mls/hr IV . Q8H20M [facility] Rx#:[id number] Oral 100 240 Other: Voiding Method Toilet # Voids 1 3 Head normocephalic Neck supple Lungs clear to auscultation bilaterally no wheezing or crackles Heart regular rate and rhythm S1-S2, no rub or gallop Abdomen is obese soft tender to lower abdomen palpation Extremities no edema Neuro alert and orientated to 3 Results CBC & Chem 7: 12/10/18 14:50 12/10/18 14:50 Labs: Abnormal Lab Results - Last 24 Hours (Table) 12/10/18 12/10/18 12/10/18 Range/Units 14:50 14:50 14:50 WBC 14.7 H (3.8-10.6) k/uL Neutrophils # 11.2 H (1.3-7.7) k/uL D-Dimer 1.18 H (<0.60) mg/L FEU Potassium 5.4 H (3.5-5.1) mmol/L Chloride 114 H (98-107) mmol/L Carbon Dioxide 15 L (22-30) mmol/L BUN 48 H (9-20) mg/dL Creatinine 2.35 H (0.66-1.25) mg/dL Glucose 131 H (74-99) mg/dL Calcium 10.3 H (8.4-10.2) mg/dL Total Protein 8.8 H (6.3-8.2) g/dL Urine Protein (Negative) Urine Glucose (UA) (Negative) Urine Bilirubin (Negative) Ur Leukocyte Esterase (Negative) Urine RBC (0-5) /hpf Urine WBC (0-5) /hpf Urine WBC Clumps (None) /hpf Ur Squamous Epith Cells (0-4) /hpf Amorphous Sediment (None) /hpf Urine Bacteria (None) /hpf Hyaline Casts (0-2) /lpf Urine Mucus (None) /hpf 12/10/18 Range/Units 14:50 WBC (3.8-10.6) k/uL Neutrophils # (1.3-7.7) k/uL D-Dimer (<0.60) mg/L FEU Potassium (3.5-5.1) mmol/L Chloride (98-107) mmol/L Carbon Dioxide (22-30) mmol/L BUN (9-20) mg/dL Creatinine (0.66-1.25) mg/dL Glucose (74-99) mg/dL Calcium (8.4-10.2) mg/dL Total Protein (6.3-8.2) g/dL Urine Protein 2+ H (Negative) Urine Glucose (UA) Trace H (Negative) Urine Bilirubin 1+ H (Negative) Ur Leukocyte Esterase Small H (Negative) Urine RBC 8 H (0-5) /hpf Urine WBC 27 H (0-5) /hpf Urine WBC Clumps Few H (None) /hpf Ur Squamous Epith Cells 15 H (0-4) /hpf Amorphous Sediment Rare H (None) /hpf Urine Bacteria Occasional H (None) /hpf Hyaline Casts 63 H (0-2) /lpf Urine Mucus Rare H (None) /hpf Microbiology - Last 24 Hours (Table) 12/10/18 14:50 Urine Culture - Preliminary Urine,Voided Thrombosis Risk Factor Assmnt - Choose All That Apply Any of the Below Risk Factors Present?: Yes Each Factor Represents 1 point: Abnormal pulmonary function (COPD), Medical pt on bed rest, Obesity (BMI >25) Each Risk Factor Represents 2 Points: Age 61-74 years Other congenital or acquired thrombophilia - If yes, enter type in comment: No Thrombosis Risk Factor Assessment Total Risk Factor Score: 5 Thrombosis Risk Factor Assessment Level: High Risk Assessment and Plan Assessment: 1. Acute kidney injury. Nephrology services are following. Creatinine 2.35 admission. Patient currently on sodium bicarb per nephrology 2. Hyperlipidemia secondary to acute kidney injury. Potassium 5. 4 repeat lab has been ordered. 3. Urinary tract infection. Patient started on Rocephin. Urine culture 4. Diarrhea. CT of abdomen and pelvis completed showing no acute abnormality of the abdomen and pelvis. No focal renal defect. Retained contrast in bowel. Atheroscerotic vascular disease. C. diff stool cultures ordered 5. Palpitations. This is likely due to dehydration and elevated potassium level. EKG completed showing sinus rhythm with first-degree AV block with premature complexes and complete right bundle branch block. Troponin negative 3 will consult cardiology services 6. History of asthma. No exacerbation at this time 7. History of hyperlipidemia. 8. History of essential hypertension well controlled at this time 9. History of osteoarthritis 10. History of sleep apnea. Patient wears cpap at home 11. History of anxiety and depression DVT prophylaxis Lovenox. GI prophylaxis Protonix Nephrology cardiology service is consulted Blood in urine and stool cultures ordered. A.m. labs ordered Time with Patient: Greater than 30 (Greater than 60% of the total time spent in counseling and coordination of care. I performed an examination of the patient and discussed their management with the Nurse Practitioner. I have reviewed the Nurse Practitioner's notes and agree with the documented findings and plan of care)
[2018-12-11 11:16] LABS: Albumin 3.9 g/dL (3.5-5.0); Total Bilirubin 0.6 mg/dL (0.2-1.3); Total Protein 7.6 g/dL (6.3-8.2)
[2018-12-11] MEDS: DEXTROSE 5% IN WATER 1,000 ML with SODIUM BICARB (1 MEQ/ML) 150 ML IV SCH ×2 (16:57→22:55)
[2018-12-12] MEDS: DEXTROSE 5% IN WATER 1,000 ML with SODIUM BICARB (1 MEQ/ML) 150 ML IV SCH ×2 (05:49→15:18)
[2018-12-12 07:11] LABS: Basophils % (A) 0 %; Eosinophils # (A) 0.2 k/uL (0-0.7); Eosinophils % (A) 2 %; HCT 36.5 % (39.0-53.0); HGB 11.8 gm/dL (13.0-17.5); Lymphocytes # (A) 2.5 k/uL (1.0-4.8); Lymphocytes % (A) 31 %; MCH 29.6 pg (25.0-35.0); MCHC 32.2 g/dL (31.0-37.0); MCV 91.8 fL (80.0-100.0); Monocytes # (A) 0.3 k/uL (0-1.0); Monocytes % (A) 4 %; Neutrophils # (A) 4.9 k/uL (1.3-7.7); Neutrophils % (A) 61 %; Platelet Count 297 k/uL (150-450); RBC 3.98 m/uL (4.30-5.90); RDW 14.7 % (11.5-15.5)
[2018-12-12 07:28] LABS: Albumin 3.5 g/dL (3.5-5.0); Potassium 4.7 mmol/L (3.5-5.1); Total Bilirubin 0.6 mg/dL (0.2-1.3); Total Protein 6.8 g/dL (6.3-8.2)
[2018-12-12] MEDS: FAMOTIDINE 20 MG TAB PO SCH (07:31)
[2018-12-12] MEDS: PARoxetine 20 MG TAB PO SCH (07:31)
[2018-12-12] MEDS: PANTOPRAZOLE 40 MG TABLET PO SCH (07:31)
[2018-12-12] MEDS: ENOXAPARIN 40 MG/0.4 ML SYRINGE SQ SCH (07:32)
--- NOTE | 2018-12-12 13:15 | CONS ---
CONSULTATION DATE OF DICTATION: 12/12/2018 REASON FOR CONSULTATION: Acute diarrhea. HISTORY OF PRESENT ILLNESS: The patient is a 78-year-old pleasant white male who was admitted to the hospital because of abnormal labs showing elevated BUN and creatinine. The patient states that for the last one week he has been having severe diarrhea; he was having bowel movements anywhere from 6 to 8 in the day which were loose to watery in consistency, with no blood or mucus in the stool. He was complaining of some cramping lower abdominal pain and he started becoming somewhat weak, fatigued, and he was having some palpitations and became concerned. Because of the abnormal labs that were noted by Dr. Chua, he was sent to the emergency room. In the ER, he was noted to have acute kidney injury and presently receiving IV hydration. Since being in the hospital, the diarrhea has completely resolved. In fact, he had one soft bowel movement this morning. No blood in the stool. He reports no nausea, vomiting. Overall, he is feeling much better. PAST MEDICAL HISTORY: Significant for: 1. Asthma. 2. Hypertension. 3. Hyperlipidemia. 4. Degenerative joint disease. 5. Sleep apnea. PAST SURGICAL HISTORY: Cholecystectomy. HOME MEDICATIONS: Include: 1. Paxil. 2. Zestril. 3. Zocor. 4. Aspirin. 5. Albuterol. 6. B12. 7. Pepcid. ALLERGIES: PENICILLIN. SOCIAL HISTORY: Former smoker. No alcohol use. FAMILY HISTORY: Brother had kidney cancer. REVIEW OF SYSTEMS: CARDIOPULMONARY: No chest pain or shortness of breath. GENITOURINARY: No dysuria or hematuria. MUSCULOSKELETAL: Unremarkable. SKIN: Unremarkable. ENDOCRINE: Unremarkable. PSYCHIATRIC: Unremarkable. NEUROLOGY: Unremarkable. ENT/VISION: Unremarkable. CONSTITUTIONAL: No recent weight loss. No fever, chills, night sweats. PHYSICAL EXAMINATION: Appears comfortable. No apparent distress. Vital signs are stable. Blood pressure 144/69, pulse rate 67, temperature 98.2, HEENT EXAMINATION: Unremarkable. Conjunctivae are pink, sclerae anicteric. Oral cavity with no lesions. NECK: No JVD or lymph node enlargement. Chest was clear to auscultation. HEART: Regular rate and rhythm. ABDOMEN: Soft. Bowel sounds are positive. There was mild tenderness in the left lower quadrant area. EXTREMITIES: No pedal edema. SKIN: No rashes. NEURO: Alert and oriented x3. No focal deficits. LABS: Labs done at the time of admission to the hospital showed WBC 10.9, hemoglobin 13.1, platelets normal. Basic metabolic panel showed a BUN of 44, creatinine 1.57. Today BUN is 23, creatinine 1.08. C difficile toxin was negative. WBC count is 8, hemoglobin 11.8. Stool cultures in progress. Blood cultures no growth. CT of the abdomen and pelvis done in the emergency room 2 days ago was unremarkable. IMPRESSION: 1. Acute diarrhea for the last 3 to 4 days' duration. The patient believes his symptoms started after he had a CT of the abdomen and pelvis that was done a few days ago. Most likely the diarrhea appears to be infectious in etiology, but the possibility of medication-induced because of recent antibiotic use for UTI cannot be excluded. In any event, his diarrhea has completely resolved. He is doing better. 2. Acute kidney injury. Improving labs with hydration. 3. Urinary tract infection, on antibiotics. 4. Chronic obstructive pulmonary disease. RECOMMENDATIONS: 1. Advance diet as tolerated. 2. No need for any further investigations for the diarrhea, as it appears to be gradually resolving. The patient also mentioned that he did have a colonoscopy on an outpatient basis about 3 or 4 months ago, but he does not recall all of the details. At this time we will follow him closely during his hospital stay. Thank you for this consultation. YEFRI / CECE: [id number] /
--- NOTE | 2018-12-12 14:38 | P.PN ---
Subjective Progress Note Date: 12/12/18 This is a 78-year-old male patient of Dr. Buckley. Patient presented to the hospital with complaints of abnormal lab values. Patient was told by PCP. Decreased kidney function in 2 proceed to the ER for further evaluation. Patient reports that he's had 3 days of diarrhea and suprapubic right lower quadrant pain. Patient also reports that he's had increased heart palpitations over the past 3 days. Patient does have a history of asthma, hyperlipidemia, hypertension, osteoarthritis, sleep apnea, cholecystectomy and anxiety with depression. Chest x-ray completed in the ER showing no acute cardiopulmonary process. VQ scan completed showing mild matched state the proximal left lower lobe subsegmental there is a low probability of pulmonary embolism. EKG completed the ER showing sinus rhythm with first-degree AV block with premature atrial complexes in the right bundle branch block. CT of abdomen and pelvis completed showing no acute abnormality of the abdomen and pelvis. No focal renal defect. Retained contrast atherosclerotic vascular disease. Patient also positive for urinary tract infection. Patient started on Rocephin. Urine culture ordered. Nephrology services consulted. At this time patient denies any chest pain or shortness of breath. Patient is complaining of some lower abdominal pain patient denies nausea or vomiting. Patient denies any urinary burning or frequency. On 12/12/2018 patient was seen and examined on the medical floor he is alert and oriented 3 in no apparent distress he had a regular diet today subsequently he developed abdominal pain and diarrhea, otherwise he denies any complaints there is no fever or chills no headache or dizziness no chest pain no shortness of breath no cough no nausea or vomiting no burning with urination no frequency or urgency and no hematuria Objective - Vital Signs Vital signs: Vital Signs Temp 97.5 F L 12/12/18 07:38 Pulse 89 12/12/18 07:38 Resp 18 12/12/18 07:38 BP 121/57 12/12/18 07:38 Pulse Ox 96 12/12/18 07:38 Intake & Output 12/11/18 12/12/18 12/12/18 18:59 06:59 18:59 Intake Total 840 680 Balance 840 680 Intake: Oral 840 480 Other 200 Other: Voiding Method Toilet Toilet # Voids 2 3 # Bowel Movements 1 - Exam In general patient is alert and oriented 3 in no apparent distress Head normocephalic and atraumatic Neck supple no JVD no goiter Lungs clear to auscultation bilaterally no wheezing or crackles Heart regular rate and rhythm S1-S2, no rub or gallop Abdomen is obese soft tender to lower abdomen palpation Extremities no edema no cyanosis or clubbing Neuro no gross focal neurological deficits - Labs CBC & Chem 7: 12/12/18 06:42 12/12/18 06:42 Labs: Abnormal Lab Results - Last 24 Hours (Table) 12/12/18 12/12/18 Range/Units 06:42 06:42 RBC 3.98 L (4.30-5.90) m/uL Hgb 11.8 L (13.0-17.5) gm/dL Hct 36.5 L (39.0-53.0) % Chloride 111 H (98-107) mmol/L BUN 23 H (9-20) mg/dL Glucose 117 H (74-99) mg/dL Microbiology - Last 24 Hours (Table) 12/10/18 18:15 Blood Culture - Preliminary Blood No Growth after 24 hours 12/10/18 14:50 Urine Culture - Final Urine,Voided 12/11/18 12:00 Stool Culture - Preliminary Stool Assessment and Plan Plan: 1. Acute kidney injury. Nephrology services are following. Creatinine 2.35 admission. Patient currently on sodium bicarb per nephrology, kidney function improving BUN today 23 creatinine 1.08 2. Hyperlipidemia secondary to acute kidney injury. Potassium 5. 4 repeat lab has been ordered. 3. Urinary tract infection. Patient started on Rocephin. Urine culture 4. Diarrhea. With abdominal pain CT of abdomen and pelvis completed showing no acute abnormality of the abdomen and pelvis. No focal renal defect. Retained contrast in bowel. Atheroscerotic vascular disease. C. diff negative stool cultures ordered 5. Palpitations. This is likely due to dehydration and elevated potassium level. EKG completed showing sinus rhythm with first-degree AV block with premature complexes and complete right bundle branch block. Troponin negative 3 will consult cardiology services 6. History of asthma. No exacerbation at this time 7. History of hyperlipidemia. 8. History of essential hypertension well controlled at this time 9. History of osteoarthritis 10. History of sleep apnea. Patient wears cpap at home 11. History of anxiety and depression DVT prophylaxis Lovenox. GI prophylaxis Protonix Nephrology cardiology service is consulted Blood in urine and stool cultures ordered. A.m. labs ordered
--- NOTE | 2018-12-12 17:26 | P.CRDCN ---
History of Present Illness Consult date: 12/12/18 History of present illness: This is a 78-year-old gentleman with history of peripheral vascular disease who was admitted to the hospital this time with complaints of diarrhea for 3 days and worsening renal failure and increasing creatinine. It was felt that patient was dehydrated and has been hydrated since admission. Patient was also having some abdominal pain. His kidney functions are improving and patient is feeling better. Patient was found to have frequent APCs. His admission EKG showed right bundle branch block pattern. He had a cardiac catheterization about a year ago because of positive stress test. He was not found any obstructive coronary artery disease. Patient does have some bilateral peripheral vascular disease being managed medically. At the time of my examination patient is denying any chest pain or shortness of breath. He did have palpitations on admission but seemed to be improving. At this point patient seemed cardiac was stable. Continue current medical therapy. Follow up as an outpatient Review of Systems As per the chart Past Medical History Past Medical History: Asthma, Hyperlipidemia, Hypertension, Osteoarthritis (OA) , Sleep Apnea/CPAP/BIPAP Additional Past Medical History / Comment(s): cpap, fell in october 2013 and fractured left hip, periodontal infection that delayed hip surgery History of Any Multi-Drug Resistant Organisms: None Reported Past Surgical History: Cholecystectomy, Orthopedic Surgery Additional Past Surgical History / Comment(s): brain tumor removed as a teen, [facility] Past Anesthesia/Blood Transfusion Reactions: No Reported Reaction Additional Past Anesthesia/Blood Transfusion Reaction / Comment(s): very severe sleep apnea per patient Past Psychological History: Anxiety, Depression Smoking Status: Former smoker Past Alcohol Use History: None Reported Additional Past Alcohol Use History / Comment(s): quit smoking 1961, smoked from age 13, cigars only(6 daily) Past Drug Use History: None Reported - Past Family History Brother(s) Family Medical History: Cancer Additional Family Medical History / Comment(s): kidney,liver Medications and Allergies Home Medications Medication Instructions Recorded Confirmed Type PARoxetine HCL [Paxil] 40 mg PO DAILY 06/08/14 12/10/18 History Lisinopril [Zestril] 20 mg PO DAILY 01/20/17 12/10/18 History Simvastatin [Zocor] 40 mg PO HS 06/30/18 12/10/18 History Aspirin 81 mg PO DAILY 10/27/18 12/10/18 History Albuterol Inhaler [Ventolin Hfa 1 - 2 puff INHALATION RT-Q4H PRN 12/10/18 History Inhaler] Cilostazol [Pletal] 100 mg PO BID 12/10/18 12/10/18 History Famotidine [Pepcid] 20 mg PO BID 12/10/18 12/10/18 History Allergies Allergy/AdvReac Type Severity Reaction Status Date / Time Penicillins Allergy Rash/Hives Verified 12/10/18 14:06 Physical Exam Vitals: Vital Signs Temp Pulse Resp BP Pulse Ox 12/12/18 15:17 98.5 F 80 16 101/61 96 12/12/18 07:38 97.5 F L 89 18 121/57 96 12/12/18 03:17 16 12/12/18 01:44 98.2 F 67 16 144/69 97 12/11/18 23:31 18 12/11/18 20:00 18 12/11/18 19:30 98.4 F 88 18 108/58 98 Intake and Output 12/12/18 12/12/18 12/12/18 06:59 14:59 22:59 Intake Total 680 Balance 680 Intake: Oral 480 Other 200 Other: Voiding Method Toilet # Voids 3 GENERAL EXAM: Patient is alert and oriented and doesn't appear to be in any acute distress HEENT: Normocephalic. Normal reaction of pupils, equal size, normal range of extraocular motion. No erythema or exudates in the throat. NECK: No masses, no nuchal rigidity. CHEST: No chest wall deformity. LUNGS: Diminished breath sounds HEART: Distant heart sounds ABDOMEN: No hepatosplenomegaly, normal bowel sounds, no guarding or rigidity. SKIN: No rashes CENTRAL NERVOUS SYSTEM: No focal deficits. EXTREMITIES: No cyanosis, clubbing or edema. Results 12/12/18 06:42 12/12/18 06:42 Cardiac Enzymes 12/12/18 Range/Units 06:42 AST 29 (17-59) U/L CBC 12/12/18 Range/Units 06:42 WBC 8.0 (3.8-10.6) k/uL RBC 3.98 L (4.30-5.90) m/uL Hgb 11.8 L (13.0-17.5) gm/dL Hct 36.5 L (39.0-53.0) % Plt Count 297 (150-450) k/uL Comprehensive Metabolic Panel 12/12/18 Range/Units 06:42 Sodium 143 (137-145) mmol/L Potassium 4.7 (3.5-5.1) mmol/L Chloride 111 H (98-107) mmol/L Carbon Dioxide 25 (22-30) mmol/L BUN 23 H (9-20) mg/dL Creatinine 1.08 (0.66-1.25) mg/dL Glucose 117 H (74-99) mg/dL Calcium 9.0 (8.4-10.2) mg/dL AST 29 (17-59) U/L ALT 40 (21-72) U/L Alkaline Phosphatase 69 (38-126) U/L Total Protein 6.8 (6.3-8.2) g/dL Albumin 3.5 (3.5-5.0) g/dL Current Medications Generic Name Dose Route Start Last Admin Trade Name Freq PRN Reason Stop Dose Admin Albuterol Sulfate 2.5 mg 12/10/18 21:13 Ventolin Nebulized INHALATION RT-Q4H PRN Shortness Of Breath Enoxaparin Sodium 40 mg 12/12/18 09:00 12/12/18 07:32 Lovenox SQ 40 mg DAILY ESTEFANY Administration Famotidine 20 mg 12/12/18 09:00 12/12/18 07:31 Pepcid PO 20 mg DAILY ESTEFANY Administration Sodium Bicarbonate 150 ml/ 1,150 mls @ 125 mls/hr 12/11/18 10:00 12/12/18 15: 18 Dextrose/Water IV 125 mls/hr .Q9H12M ESTEFANY Administration Ceftriaxone Sodium 1 gm/ 50 mls @ 100 mls/hr 12/11/18 21:00 12/12/18 07:31 Sodium Chloride IVPB 100 mls/hr Q12HR ESTEFANY Administration Naloxone HCl 0.2 mg 12/10/18 16:42 Narcan IV Q2M PRN Opioid Reversal Pantoprazole Sodium 40 mg 12/12/18 07:30 12/12/18 07:31 Protonix PO 40 mg [id number] ESTEFANY Administration Paroxetine HCl 40 mg 12/11/18 09:00 12/12/18 07:31 Paxil PO 40 mg DAILY ESTEFANY Administration Intake and Output 0312/12/18 12/12/18 06:59 14:59 22:59 Intake Total 680 Balance 680 Intake: Oral 480 Other 200 Other: Voiding Method Toilet # Voids 3 12/12/18 06:42 12/12/18 06:42 EKG Interpretations (text) Sinus rhythm with right bundle branch block pattern. APCs Assessment and Plan (1) Vascular disease Current Visit: Yes Status: Acute Code(s): I99.9 - UNSPECIFIED DISORDER OF CIRCULATORY SYSTEM SNOMED Code(s): 03170271 (2) Abdominal pain Current Visit: Yes Status: Acute Code(s): R10.9 - UNSPECIFIED ABDOMINAL PAIN SNOMED Code(s): 00789075 (3) Heart palpitations Current Visit: Yes Status: Acute Code(s): R00.2 - PALPITATIONS SNOMED Code (s): 48594646 Plan: Patient is critically stable at this time. His renal functions are improving. His palpitations also improved. Continue current medical therapy. Follow up as an outpatient
[2018-12-13] MEDS: DEXTROSE 5% IN WATER 1,000 ML with SODIUM BICARB (1 MEQ/ML) 150 ML IV SCH ×2 (00:20→07:56)
[2018-12-13] MEDS: FAMOTIDINE 20 MG TAB PO SCH (07:55)
[2018-12-13] MEDS: PARoxetine 20 MG TAB PO SCH (07:55)
[2018-12-13] MEDS: PANTOPRAZOLE 40 MG TABLET PO SCH (07:55)
[2018-12-13] MEDS: ENOXAPARIN 40 MG/0.4 ML SYRINGE SQ SCH (07:55)
[2018-12-13 08:21] LABS: Basophils % (A) 0 %; Eosinophils # (A) 0.2 k/uL (0-0.7); Eosinophils % (A) 3 %; HCT 35.3 % (39.0-53.0); HGB 11.6 gm/dL (13.0-17.5); Lymphocytes # (A) 2.3 k/uL (1.0-4.8); Lymphocytes % (A) 30 %; MCH 29.8 pg (25.0-35.0); MCHC 32.8 g/dL (31.0-37.0); MCV 90.8 fL (80.0-100.0); Mean Platelet Volume 6.9; Monocytes # (A) 0.5 k/uL (0-1.0); Monocytes % (A) 6 %; Neutrophils # (A) 4.4 k/uL (1.3-7.7); Neutrophils % (A) 59 %; Platelet Count 254 k/uL (150-450); RBC 3.88 m/uL (4.30-5.90); RDW 14.6 % (11.5-15.5); WBC 7.5 k/uL (3.8-10.6)
--- NOTE | 2018-12-13 12:28 | PN ---
PROGRESS NOTE The patient is a 78-year-old white male admitted to the hospital with abdominal pain and diarrhea for the last 4-5 days duration. He is feeling better. The diarrhea has slowed but he continues to have persistent left lower quadrant abdominal pain. He reports no fever, chills, or night sweats. He is on broad-spectrum antibiotics for urinary tract infection. PHYSICAL EXAMINATION: He appears comfortable. No apparent distress. Vital signs stable. Blood pressure is 122/84, and afebrile. HEENT examination unremarkable. Conjunctivae pink. Sclerae anicteric. Oral cavity no lesions. Neck: No JVD or lymph node enlargement. Chest was clear to auscultation. HEART: Regular rate and rhythm. ABDOMEN: Soft. Bowel sounds are positive. Mild tenderness in the left lower quadrant area. Extremities: No pedal edema. Skin no rashes. NEUROLOGIC: Alert and oriented x3. No focal deficits. LABS: From today WBC 7.5, hemoglobin 11.6, platelets are normal. Basic metabolic panel is within normal limits. IMPRESSION: 1. Acute onset of lower abdominal pain and diarrhea, which appears to be resolving. Presently, he has more tenderness in the left lower quadrant area and recent CT scan of the abdomen 5 days ago done on an outpatient basis did not show any acute pathology. At this time the symptoms could be related to gastroenteritis, but possibility of diverticulitis cannot be excluded. He is presently on Ceftriaxone day #3, gradually improving. 2. Acute kidney injury. BUN and creatinine gradually improving with hydration. 3. Urinary tract infection on Ceftriaxone. RECOMMENDATIONS: 1. Continue to advance diet as tolerated. 2. Continue with broad-spectrum antibiotics. 3. We will follow him closely during his hospital stay. Thank you for this consultation. MMODL / IJN: [id number] /
--- NOTE | 2018-12-13 12:29 | P.PN ---
Subjective Progress Note Date: 12/13/18 This is a 78-year-old male patient of Dr. Buckley. Patient presented to the hospital with complaints of abnormal lab values. Patient was told by PCP. Decreased kidney function in 2 proceed to the ER for further evaluation. Patient reports that he's had 3 days of diarrhea and suprapubic right lower quadrant pain. Patient also reports that he's had increased heart palpitations over the past 3 days. Patient does have a history of asthma, hyperlipidemia, hypertension, osteoarthritis, sleep apnea, cholecystectomy and anxiety with depression. Chest x-ray completed in the ER showing no acute cardiopulmonary process. VQ scan completed showing mild matched state the proximal left lower lobe subsegmental there is a low probability of pulmonary embolism. EKG completed the ER showing sinus rhythm with first-degree AV block with premature atrial complexes in the right bundle branch block. CT of abdomen and pelvis completed showing no acute abnormality of the abdomen and pelvis. No focal renal defect. Retained contrast atherosclerotic vascular disease. Patient also positive for urinary tract infection. Patient started on Rocephin. Urine culture ordered. Nephrology services consulted. At this time patient denies any chest pain or shortness of breath. Patient is complaining of some lower abdominal pain patient denies nausea or vomiting. Patient denies any urinary burning or frequency. On 12/12/2018 patient was seen and examined on the medical floor he is alert and oriented 3 in no apparent distress he had a regular diet today subsequently he developed abdominal pain and diarrhea, otherwise he denies any complaints there is no fever or chills no headache or dizziness no chest pain no shortness of breath no cough no nausea or vomiting no burning with urination no frequency or urgency and no hematuria. On 12/13/2018 patient is doing better he is still complaining of abdominal pain he had one soft bowel movement today, otherwise he denies any complaint there is no fever or chills no headache or dizziness no chest pain no shortness of breath no cough no nausea or vomiting no burning with urination no frequency or urgency and no hematuria, white blood count has normalized down to 7.5 BUN still slightly elevated at 23 creatinine down to normal at 1.08 Objective - Vital Signs Vital signs: Vital Signs Temp 97.8 F 12/13/18 08:08 Pulse 71 12/13/18 08:08 Resp 16 12/13/18 08:08 BP 129/69 12/13/18 08:08 Pulse Ox 95 12/13/18 08:08 Intake & Output 12/12/18 12/13/18 12/13/18 18:59 06:59 18:59 Intake Total 920 2080 540 Balance 920 2080 540 Intake: Intake, IV Titration 1300 Amount Dextrose 5% in Water 1, 1250 000 ml @ 125 mls/hr IV . Q9H12M [facility] with Sodium Bicarb (1 Meq/ml) 150 ml Rx#:[id number] cefTRIAXone 1 gm In 50 Sodium Chloride 0.9% 50 ml @ 100 mls/hr IVPB Q12HR [facility] Rx#:[id number] Oral 720 780 540 Other 200 Other: Voiding Method Toilet # Voids 3 2 # Bowel Movements 1 - Exam In general patient is alert and oriented 3 in no apparent distress Head normocephalic and atraumatic Neck supple no JVD no goiter Lungs clear to auscultation bilaterally no wheezing or crackles Heart regular rate and rhythm S1-S2, no rub or gallop Abdomen is obese soft tender to lower abdomen palpation, no organomegaly there is normal active bowel sounds Extremities no edema no cyanosis or clubbing Neuro no gross focal neurological deficits - Labs CBC & Chem 7: 12/13/18 07:28 12/12/18 06:42 Labs: Abnormal Lab Results - Last 24 Hours (Table) 12/13/18 Range/Units 07:28 RBC 3.88 L (4.30-5.90) m/uL Hgb 11.6 L (13.0-17.5) gm/dL Hct 35.3 L (39.0-53.0) % Microbiology - Last 24 Hours (Table) 12/10/18 18:15 Blood Culture - Preliminary Blood No Growth after 48 hours Assessment and Plan Plan: 1. Acute kidney injury. Nephrology services are following. Creatinine 2.35 admission. Patient currently on sodium bicarb per nephrology, kidney function improving BUN today 23 creatinine 1.08 2. Hyperlipidemia secondary to acute kidney injury. Potassium 5. 4 repeat lab has been ordered. 3. Urinary tract infection. Patient started on Rocephin. Urine culture 4. Diarrhea. With abdominal pain CT of abdomen and pelvis completed showing no acute abnormality of the abdomen and pelvis. No focal renal defect. Retained contrast in bowel. Atheroscerotic vascular disease. C. diff negative stool cultures ordered 5. Palpitations. This is likely due to dehydration and elevated potassium level. EKG completed showing sinus rhythm with first-degree AV block with premature complexes and complete right bundle branch block. Troponin negative 3 will consult cardiology services 6. History of asthma. No exacerbation at this time 7. History of hyperlipidemia. 8. History of essential hypertension well controlled at this time 9. History of osteoarthritis 10. History of sleep apnea. Patient wears cpap at home 11. History of anxiety and depression DVT prophylaxis Lovenox. GI prophylaxis Protonix Nephrology cardiology service is consulted Blood urine and stool cultures ordered. A.m. labs ordered Patient improving possible discharge to home tomorrow
--- NOTE | 2018-12-13 14:31 | P.PN ---
Subjective Progress Note Date: 12/13/18 Seen and examined for the follow-up of acute kidney injury. Objective - Vital Signs Vital signs: Vital Signs Temp 97.8 F 12/13/18 08:08 Pulse 71 12/13/18 08:08 Resp 16 12/13/18 08:08 BP 129/69 12/13/18 08:08 Pulse Ox 95 12/13/18 08:08 Intake & Output 12/12/18 12/13/18 12/13/18 18:59 06:59 18:59 Intake Total 920 2080 540 Balance 920 2080 540 Intake: Intake, IV Titration 1300 Amount Dextrose 5% in Water 1, 1250 000 ml @ 125 mls/hr IV . Q9H12M [facility] with Sodium Bicarb (1 Meq/ml) 150 ml Rx#:[id number] cefTRIAXone 1 gm In 50 Sodium Chloride 0.9% 50 ml @ 100 mls/hr IVPB Q12HR [facility] Rx#:[id number] Oral 720 780 540 Other 200 Other: Voiding Method Toilet # Voids 3 2 # Bowel Movements 1 - Exam Lying in bed no acute distress S1-S2 heard Lungs clear No edema - Labs CBC & Chem 7: 12/13/18 07:28 12/12/18 06:42 Labs: Abnormal Lab Results - Last 24 Hours (Table) 12/13/18 Range/Units 07:28 RBC 3.88 L (4.30-5.90) m/uL Hgb 11.6 L (13.0-17.5) gm/dL Hct 35.3 L (39.0-53.0) % Microbiology - Last 24 Hours (Table) 12/10/18 18:15 Blood Culture - Preliminary Blood No Growth after 48 hours Assessment and Plan Assessment: #1 acute kidney injury secondary to prerenal process creatinine back to baseline. #2 and an gap metabolic acidosis secondary to diarrhea resolved #3 hypertension #4 mild hyperkalemia resolved Plan: #1 stop bicarb drip #2 encourage oral intake #3 stable from nephrology point of view for discharge to be followed up in the office in 1-2 weeks.
[2018-12-14] MEDS: PARoxetine 20 MG TAB PO SCH (07:53)
[2018-12-14] MEDS: FAMOTIDINE 20 MG TAB PO SCH (07:53)
[2018-12-14] MEDS: PANTOPRAZOLE 40 MG TABLET PO SCH (07:53)
[2018-12-14] MEDS: ENOXAPARIN 40 MG/0.4 ML SYRINGE SQ SCH (07:53)
[2018-12-14 10:00] LABS: Basophils % (A) 0 %; Eosinophils # (A) 0.2 k/uL (0-0.7); Eosinophils % (A) 3 %; HCT 35.5 % (39.0-53.0); HGB 11.2 gm/dL (13.0-17.5); Lymphocytes # (A) 2.6 k/uL (1.0-4.8); Lymphocytes % (A) 31 %; MCH 29.1 pg (25.0-35.0); MCHC 31.6 g/dL (31.0-37.0); MCV 92.1 fL (80.0-100.0); Mean Platelet Volume 6.8; Monocytes # (A) 0.4 k/uL (0-1.0); Monocytes % (A) 5 %; Neutrophils # (A) 5.1 k/uL (1.3-7.7); Neutrophils % (A) 61 %; Platelet Count 240 k/uL (150-450); RBC 3.85 m/uL (4.30-5.90); RDW 14.1 % (11.5-15.5); WBC 8.4 k/uL (3.8-10.6)
[2018-12-14 10:09] LABS: Albumin 3.4 g/dL (3.5-5.0); Calcium 8.9 mg/dL (8.4-10.2); Potassium 4.6 mmol/L (3.5-5.1); Total Bilirubin 0.4 mg/dL (0.2-1.3); Total Protein 6.5 g/dL (6.3-8.2)
--- NOTE | 2018-12-14 11:43 | P.PN ---
Subjective Progress Note Date: 12/14/18 This is a 78-year-old male patient of Dr. Buckley. Patient presented to the hospital with complaints of abnormal lab values. Patient was told by PCP. Decreased kidney function in 2 proceed to the ER for further evaluation. Patient reports that he's had 3 days of diarrhea and suprapubic right lower quadrant pain. Patient also reports that he's had increased heart palpitations over the past 3 days. Patient does have a history of asthma, hyperlipidemia, hypertension, osteoarthritis, sleep apnea, cholecystectomy and anxiety with depression. Chest x-ray completed in the ER showing no acute cardiopulmonary process. VQ scan completed showing mild matched state the proximal left lower lobe subsegmental there is a low probability of pulmonary embolism. EKG completed the ER showing sinus rhythm with first-degree AV block with premature atrial complexes in the right bundle branch block. CT of abdomen and pelvis completed showing no acute abnormality of the abdomen and pelvis. No focal renal defect. Retained contrast atherosclerotic vascular disease. Patient also positive for urinary tract infection. Patient started on Rocephin. Urine culture ordered. Nephrology services consulted. At this time patient denies any chest pain or shortness of breath. Patient is complaining of some lower abdominal pain patient denies nausea or vomiting. Patient denies any urinary burning or frequency. On 12/12/2018 patient was seen and examined on the medical floor he is alert and oriented 3 in no apparent distress he had a regular diet today subsequently he developed abdominal pain and diarrhea, otherwise he denies any complaints there is no fever or chills no headache or dizziness no chest pain no shortness of breath no cough no nausea or vomiting no burning with urination no frequency or urgency and no hematuria. On 12/13/2018 patient is doing better he is still complaining of abdominal pain he had one soft bowel movement today, otherwise he denies any complaint there is no fever or chills no headache or dizziness no chest pain no shortness of breath no cough no nausea or vomiting no burning with urination no frequency or urgency and no hematuria, white blood count has normalized down to 7.5 BUN still slightly elevated at 23 creatinine down to normal at 1.08 12/14/2018 patient complaining that he feels is not emptying his bladder all the way. Also reports having urinary hesitancy and burning with urination. Checking bladder scan for any post void residual and repeat urinalysis has been ordered. Still complaining of some diffuse abdominal discomfort mostly in the lower abdomen. Stools are now formed. Denies any nausea or vomiting. Denies any chest pain or shortness of breath. Patient was cleared by nephrology and cardiology for discharge. Creatinine is currently 1.21 Objective - Vital Signs Vital signs: Vital Signs Temp 98.6 F 12/14/18 07:09 Pulse 73 12/14/18 08:02 Resp 16 12/14/18 08:02 BP 126/62 12/14/18 07:09 Pulse Ox 95 12/14/18 07:09 Intake & Output 12/13/18 12/14/18 12/14/18 18:59 06:59 18:59 Intake Total 940 1130 Balance 940 1130 Intake: Intake, IV Titration 50 Amount cefTRIAXone 1 gm In 50 Sodium Chloride 0.9% 50 ml @ 100 mls/hr IVPB Q12HR [facility] Rx#:[id number] Oral 940 1080 Other: Voiding Method Toilet Toilet # Voids 2 2 - Exam Head normocephalic Neck supple Lungs clear to auscultation bilaterally no wheezing or crackles Heart regular rate and rhythm S1-S2, no rub or gallop Abdomen is soft diffuse abdominal tenderness nondistended positive bowel sounds no hepatosplenomegaly Extremities no edema Neuro alert and orientated to 3 - Labs CBC & Chem 7: 12/14/18 09:10 12/14/18 09:10 Labs: Abnormal Lab Results - Last 24 Hours (Table) 12/14/18 12/14/18 Range/Units 09:10 09:10 RBC 3.85 L (4.30-5.90) m/uL Hgb 11.2 L (13.0-17.5) gm/dL Hct 35.5 L (39.0-53.0) % Carbon Dioxide 34 H (22-30) mmol/L Glucose 132 H (74-99) mg/dL Albumin 3.4 L (3.5-5.0) g/dL Microbiology - Last 24 Hours (Table) 12/10/18 18:15 Blood Culture - Preliminary Blood No Growth after 72 hours Assessment and Plan Assessment: 1. Acute kidney injury prerenal secondary to intravascular volume depletion from diarrhea and NADIR inhibitor. Nephrology services are following. Creatinine 2.35 admission. Baseline creatinine near 1. Creatinine is currently 1.21. NADIR inhibitor on hold 2. Hyperkalemia secondary to acute kidney injury and metabolic acidosis. Now resolved 3. Urinary tract infection. Patient started on Rocephin. Urine culture growing contaminant. Patient still having urinary symptoms. We'll repeat urinalysis with culture 4. Diarrhea. Now resolved. Possibly related to a gastroenteritis. Patient evaluated by GI service. With abdominal pain CT of abdomen and pelvis completed showing no acute abnormality of the abdomen and pelvis. No focal renal defect. Retained contrast in bowel. Atheroscerotic vascular disease. C. diff negative . Stool cultures pending 5. Palpitations. This is likely due to dehydration and elevated potassium level. EKG completed showing sinus rhythm with first-degree AV block with premature complexes and complete right bundle branch block. Troponin negative 3. Patient evaluated by cardiology service 6. History of asthma. No exacerbation at this time 7. History of hyperlipidemia. 8. History of essential hypertension well controlled at this time 9. History of osteoarthritis 10. History of sleep apnea. Patient wears cpap at home 11. History of anxiety and depression 12. Concerns for possible urinary retention check postvoid residual 13. Metabolic acidosis secondary to diarrhea. CO2 is now 34. Sodium bicarb was discontinued yesterday Consult physical therapy. Encouraged patient to increase activity. DVT prophylaxis Lovenox. GI prophylaxis Protonix I performed an examination of the patient and discussed their management with the physician Clerical Warehouseman. I have reviewed the Physician Clerical Warehouseman's notes and agree with the documented findings and plan of care
[2018-12-14 14:59] LABS: Appearance,Urine Clear (Clear); Bilirubin,Urine Negative (Negative); Blood,Urine Negative (Negative); Color,Urine Light Yellow; Glucose,Urine (UA) Negative (Negative); Ketones,Urine Negative (Negative); Leukocyte Esterase,Urine Negative (Negative); Nitrite,Urine Negative (Negative); PH, Urine 7.5 (5.0-8.0); Protein,Urine Negative (Negative); Specific Gravity,Urine 1.009 (1.001-1.035); Urobilinogen,Urine <2.0 mg/dL (<2.0)
--- NOTE | 2018-12-14 19:56 | PN ---
PROGRESS NOTE Patient is seen for followup for acute kidney injury. His renal function has improved. Serum creatinine is down to 1.2 from 2.35 on initial admission. Patient is maintained on IV antibiotics currently. He had diarrhea and he has had IV hydration. Patient was on NADIR inhibitors, which have been on hold since admission. On examination today, blood pressure was 126/62 this morning, heart rate of 73 per minute. Patient is afebrile. EXAMINATION OF THE HEART: S1 and S2. EXAMINATION OF LUNGS: Bilateral breath sounds are heard. ABDOMEN: Soft, non-tender, obese. Examination of lower extremities shows no evidence of edema. CATH LAB NURSE exam is grossly intact. Labs show hemoglobin 11.2, sodium 143, potassium 4.6, BUN 20, serum creatinine 1.2. UA is completely benign. ASSESSMENT: 1. Acute kidney injury, prerenal, currently improved. Patient is off of IV fluids. 2. Intravascular volume depletion. 3. Hyperkalemia on initial admission, now resolved. 4. Diarrhea, most likely gastroenteritis, status post evaluation by Gastroenterology. PLAN: Continue to encourage increased oral intake. Patient is stable for discharge from nephrology standpoint. We can resume NADIR inhibitors if blood pressure is elevated. MMODL / IJN: [id number] /
--- NOTE | 2018-12-14 22:53 | P.PN ---
Subjective Progress Note Date: 12/14/18 Principal diagnosis: Abdominal pain, diarrhea Patient seated at bedside. Reports one formed bowel movement with no blood seen today. He is tolerating his diet. Abdominal pain is improved. Objective - Vital Signs Vital signs: Vital Signs Temp 98.3 F 12/14/18 19:35 Pulse 78 12/14/18 19:35 Resp 16 12/14/18 20:49 BP 123/67 12/14/18 19:35 Pulse Ox 95 12/14/18 19:35 Intake & Output 12/14/18 12/14/18 12/15/18 06:59 18:59 06:59 Intake Total 1130 590 Output Total 2 Balance 1130 -2 590 Intake: Intake, IV Titration 50 50 Amount cefTRIAXone 1 gm In 50 50 Sodium Chloride 0.9% 50 ml @ 100 mls/hr IVPB Q12HR [facility] Rx#:[id number] Oral 1080 540 Output: Urine 2 Other: Voiding Method Toilet Toilet Toilet # Voids 2 2 # Bowel Movements 1 - Exam On physical examination, patient appears comfortable in no apparent distress. HEAD: Normocephalic, atraumatic. EYES: No scleral icterus. No conjunctival injection. MOUTH: No lesions, tongue midline. NECK: Trachea midline, no gross abnormalities. CHEST: Clear to auscultation with no wheezing or rhonchi appreciated. ABDOMEN: Soft, obese. Bowel sounds are positive. No organomegaly. No guarding or rigidity. EXTREMITIES: No pedal edema. SKIN: No rashes, no jaundice. NEUROLOGIC: Alert and oriented x3. No focal deficits. - Labs CBC & Chem 7: 12/14/18 09:10 12/14/18 09:10 Labs: Abnormal Lab Results - Last 24 Hours (Table) 12/14/18 12/14/18 Range/Units 09:10 09:10 RBC 3.85 L (4.30-5.90) m/uL Hgb 11.2 L (13.0-17.5) gm/dL Hct 35.5 L (39.0-53.0) % Carbon Dioxide 34 H (22-30) mmol/L Glucose 132 H (74-99) mg/dL Albumin 3.4 L (3.5-5.0) g/dL Microbiology - Last 24 Hours (Table) 12/10/18 18:15 Blood Culture - Preliminary Blood No Growth after 96 hours 12/11/18 12:00 Stool Culture - Final Stool Assessment and Plan (1) Abdominal pain Narrative/Plan: Patient presenting with acute onset of abdominal pain and diarrhea, with symptoms improving. Computed tomography scan of the abdomen did not show any acute pathology. Symptoms may be related to gastroenteritis, diverticulitis or other etiology. Testing for Clostridium difficile was negative. Current Visit: Yes Status: Acute Code(s): R10.9 - UNSPECIFIED ABDOMINAL PAIN SNOMED Code(s): 40970516 Plan: Supportive care Continue antibiotic therapy Diet as tolerated Stool studies reviewed Symptomatically improving, continue to monitor symptoms Thank you for allowing us to participate in the care of the patient
[2018-12-15 07:57] LABS: Basophils % (A) 0 %; Eosinophils # (A) 0.2 k/uL (0-0.7); Eosinophils % (A) 3 %; HCT 37.8 % (39.0-53.0); HGB 11.6 gm/dL (13.0-17.5); Lymphocytes # (A) 2.3 k/uL (1.0-4.8); Lymphocytes % (A) 26 %; MCH 28.5 pg (25.0-35.0); MCHC 30.6 g/dL (31.0-37.0); Mean Platelet Volume 6.2; Monocytes # (A) 0.4 k/uL (0-1.0); Monocytes % (A) 5 %; Neutrophils # (A) 5.6 k/uL (1.3-7.7); Neutrophils % (A) 65 %; Platelet Count 242 k/uL (150-450); RBC 4.07 m/uL (4.30-5.90); RDW 14.3 % (11.5-15.5); WBC 8.7 k/uL (3.8-10.6)
[2018-12-15] MEDS: PANTOPRAZOLE 40 MG TABLET PO SCH (08:06)
[2018-12-15] MEDS: ENOXAPARIN 40 MG/0.4 ML SYRINGE SQ SCH (08:06)
[2018-12-15] MEDS: FAMOTIDINE 20 MG TAB PO SCH (08:06)
[2018-12-15] MEDS: PARoxetine 20 MG TAB PO SCH (08:06)
[2018-12-15 08:12] VITALS: BP 134/75; PULSE 71; RESP 18; TEMP 98.1
[2018-12-15 08:16] LABS: Albumin 3.6 g/dL (3.5-5.0); Potassium 4.7 mmol/L (3.5-5.1); Total Bilirubin 0.5 mg/dL (0.2-1.3)
[2018-12-15] MEDS ORDERED: MAG HYDROX/AL HYDROX/SIMETH 30 ML CUP PO ONE (09:06)
--- NOTE | 2018-12-15 09:23 | P.PN ---
Subjective Progress Note Date: 12/15/18 Principal diagnosis: Abdominal pain diarrhea Denies abdominal pain or diarrhea. A regular breakfast this morning with indigestion after Dennis sausage. Afebrile. Objective - Vital Signs Vital signs: Vital Signs Temp 98.1 F 12/15/18 07:00 Pulse 71 12/15/18 08:06 Resp 18 12/15/18 08:06 BP 134/75 12/15/18 07:00 Pulse Ox 94 L 12/15/18 07:00 Intake & Output 12/14/18 12/15/18 12/15/18 18:59 06:59 18:59 Intake Total 1130 Output Total 2 Balance -2 1130 Intake: Intake, IV Titration 50 Amount cefTRIAXone 1 gm In 50 Sodium Chloride 0.9% 50 ml @ 100 mls/hr IVPB Q12HR [facility] Rx#:[id number] Oral 1080 Output: Urine 2 Other: Voiding Method Toilet Toilet Toilet # Voids 2 # Bowel Movements 1 - Exam General appearance: The patient is alert, oriented, in no acute distress. HET: Head is normocephalic and atraumatic. Pupils are equal and reactive. Oropharynx is clear without lesions. Neck: Supple without lymphadenopathy. Trachea midline. Heart: S1 S2. Regular rate and rhythm. Lungs: No crackles or wheezes are heard. Abdomen: Soft, nontender, nondistended with bowel sounds. No peritoneal signs. No palpable organomegaly or masses. Extremities: Normal skin color and turgor. No cyanosis, rash, ulceration, clubbing, or edema. Radial and pedal pulses are 2/4 bilaterally. Neurological: No focal deficits. Strength and sensation are grossly intact. - Labs CBC & Chem 7: 12/15/18 07:14 12/15/18 07:14 Labs: Abnormal Lab Results - Last 24 Hours (Table) 12/14/18 12/14/18 12/15/18 Range/Units 09:10 09:10 07:14 RBC 3.85 L 4.07 L (4.30-5.90) m/uL Hgb 11.2 L 11.6 L (13.0-17.5) gm/dL Hct 35.5 L 37.8 L (39.0-53.0) % MCHC 30.6 L (31.0-37.0) g/dL Carbon Dioxide 34 H (22-30) mmol/L Glucose 132 H (74-99) mg/dL Albumin 3.4 L (3.5-5.0) g/dL 12/15/18 Range/Units 07:14 RBC (4.30-5.90) m/uL Hgb (13.0-17.5) gm/dL Hct (39.0-53.0) % MCHC (31.0-37.0) g/dL Carbon Dioxide 31 H (22-30) mmol/L Glucose 103 H (74-99) mg/dL Albumin (3.5-5.0) g/dL Microbiology - Last 24 Hours (Table) 12/10/18 18:15 Blood Culture - Preliminary Blood No Growth after 96 hours 12/11/18 12:00 Stool Culture - Final Stool Assessment and Plan (1) Abdominal pain Narrative/Plan: Patient presented with acute onset of abdominal pain diarrhea with symptoms improving. CT of the abdomen did not show any acute pathology. Symptoms may be related to gastroenteritis, acute colonic diverticulitis or other etiology. Current Visit: Yes Status: Acute Code(s): R10.9 - UNSPECIFIED ABDOMINAL PAIN SNOMED Code(s): 73603121 Plan: 1. Discharge planning per medicine. Continue with present medical therapy. Milk of magnesia/Tums as needed for indigestion. Continue GI prophylaxis Protonix 40 mg daily. Assessment and plan a care discussed with Dr. Kapoor
--- NOTE | 2018-12-15 12:21 | PN ---
PROGRESS NOTE Patient is seen for followup for acute kidney injury. He is currently doing fairly well. Patient is actually being discharged today. Serum creatinine is down to 1.1 mg/dL. PHYSICAL EXAMINATION: On examination today, blood pressure is 134/75, heart rate 71 per minute. Patient is afebrile. EXAMINATION OF THE HEART: S1, S2. EXAMINATION OF THE LUNGS: Bilateral breath sounds are heard. Abdomen is soft, nontender, obese. Examination of the lower extremities shows no evidence of edema. RECOVERY UNIT OPERATOR EXAM: Grossly intact. LABS: Labs show sodium 142, potassium 4.7, BUN 18, serum creatinine 1.1, hemoglobin 11.6 g/dL. UA is completely benign. ASSESSMENT: 1. Acute kidney injury, prerenal, currently resolved. 2. Hyperkalemia on initial admission, now resolved. 3. Intravascular volume depletion, status post IV fluids. Currently, patient's fluids are now discontinued. 4. Diarrhea secondary to gastroenteritis,currently improved. PLAN: We can resume NADIR inhibitors. Renal function is significantly improved. Monitor renal profile as outpatient. MMODL / IJN: [id number] /
[2018-12-15] MEDS ORDERED: TAMSULOSIN 0.4 MG CAP.ER.24H PO STA (12:42)
--- NOTE | 2018-12-15 13:01 | P.DS ---
Providers Date of admission: 12/10/18 16:12 Expected date of discharge: 12/15/18 Attending physician: Zenon Nascimento Consults: 12/10/18 16:42 Consult Physician Stat Consulting Provider: Rashmi Paul Consult Reason/Comments: HARSHAD, UTI, abdominal pain, heart palpitations Do you want consulting provider notified?: Yes 12/11/18 09:36 Consult Physician Routine Consulting Provider: Kinga Posadas Consult Reason/Comments: palpitations Do you want consulting provider notified?: Yes 12/11/18 16:03 Consult Physician Routine Consulting Provider: Raquel Zepeda Consult Reason/Comments: diarrhea Do you want consulting provider notified?: Yes Primary care physician: Tracy Chua Hospital Course: Discharge diagnosis 1. Acute kidney injury prerenal secondary to intravascular volume depletion from diarrhea and NADIR inhibitor. Nephrology services are following. Creatinine 2.35 admission. Baseline creatinine near 1. Creatinine is currently 1.11. Per nephrology okay to restart NADIR inhibitor 2. Hyperkalemia secondary to acute kidney injury and metabolic acidosis. Now resolved 3. Urinary tract infection. Patient started on Rocephin. Urine culture growing contaminant. Repeat urinalysis negative. Urinary symptoms improved. Patient will continue Ceftin for 5 more days 4. Diarrhea. Now resolved. Possibly related to a gastroenteritis. Patient evaluated by GI service. With abdominal pain CT of abdomen and pelvis completed showing no acute abnormality of the abdomen and pelvis. No focal renal defect. Retained contrast in bowel. Atheroscerotic vascular disease. C. diff negative . Stool cultures negative 5. Palpitations. This is likely due to dehydration and elevated potassium level. EKG completed showing sinus rhythm with first-degree AV block with premature complexes and complete right bundle branch block. Troponin negative 3. Patient evaluated by cardiology service 6. History of asthma. No exacerbation at this time 7. History of hyperlipidemia. 8. History of essential hypertension well controlled at this time 9. History of osteoarthritis 10. History of sleep apnea. Patient wears cpap at home 11. History of anxiety and depression 12. Possible BPH. Start patient on Flomax 0.4 mg daily. Post void residual was checked and negative for any urinary retention 13. Metabolic acidosis secondary to diarrhea 14. GERD continue with antacid. Can use Tums as needed Hospital course This is a 78-year-old male patient of Dr. Buckley. Patient presented to the hospital with complaints of abnormal lab values. Patient was told by PCP. Decreased kidney function in 2 proceed to the ER for further evaluation. Patient reports that he's had 3 days of diarrhea and suprapubic right lower quadrant pain. Patient also reports that he's had increased heart palpitations over the past 3 days. Patient does have a history of asthma, hyperlipidemia, hypertension, osteoarthritis, sleep apnea, cholecystectomy and anxiety with depression. Chest x-ray completed in the ER showing no acute cardiopulmonary process. VQ scan completed showing mild matched state the proximal left lower lobe subsegmental there is a low probability of pulmonary embolism. EKG completed the ER showing sinus rhythm with first-degree AV block with premature atrial complexes in the right bundle branch block. CT of abdomen and pelvis completed showing no acute abnormality of the abdomen and pelvis. No focal renal defect. Retained contrast atherosclerotic vascular disease. Patient also positive for urinary tract infection. Patient started on Rocephin. Urine culture ordered. Nephrology services consulted. At this time patient denies any chest pain or shortness of breath. Patient is complaining of some lower abdominal pain patient denies nausea or vomiting. Patient denies any urinary burning or frequency. On 12/12/2018 patient was seen and examined on the medical floor he is alert and oriented 3 in no apparent distress he had a regular diet today subsequently he developed abdominal pain and diarrhea, otherwise he denies any complaints there is no fever or chills no headache or dizziness no chest pain no shortness of br eath no cough no nausea or vomiting no burning with urination no frequency or urgency and no hematuria. On 12/13/2018 patient is doing better he is still complaining of abdominal pain he had one soft bowel movement today, otherwise he denies any complaint there is no fever or chills no headache or dizziness no chest pain no shortness of breath no cough no nausea or vomiting no burning with urination no frequency or urgency and no hematuria, white blood count has normalized down to 7.5 BUN still slightly elevated at 23 creatinine down to normal at 1.08 12/14/2018 patient complaining that he feels is not emptying his bladder all the way. Also reports having urinary hesitancy and burning with urination. Checking bladder scan for any post void residual and repeat urinalysis has been ordered. Still complaining of some diffuse abdominal discomfort mostly in the lower abdomen. Stools are now formed. Denies any nausea or vomiting. Denies any chest pain or shortness of breath. Patient was cleared by nephrology and cardiology for discharge. Creatinine is currently 1.21 12/15/2018 patient is medically stable for discharge. He has been cleared by all consulting physicians for discharge. Patient's diarrhea resolved is likely related to a gastroenteritis. Patient was treated for UTI. Urine culture grew contamination and repeat urinalysis was negative. Patient's urinary symptoms did improve. There is no evidence of urinary retention. Patient will continue Ceftin for 5 more days to complete treatment of his UTI. The concerns for possible enlarged prostate. Patient gets up about 3 times a night to urinate as well as he has urinary hesitancy. He initially tries urinate and can't and then tries again a little bit later and has a good stream and good urine flow with no urinary symptoms. Flomax will be added. Would recommend patient following up with us PCP within the next week for further evaluation. Also had acute kidney injury during this admission improved with IV fluids. His NADIR inhibitor was held on admission. He was evaluated by nephrology. NADIR inhibitor can now be resumed. Patient is medically stable. Symptoms have improved. Please refer to chart for any further details. Recommend repeating BMP in 1 week to follow-up on kidney functions I performed an examination of the patient and discussed their management with the physician Leather Tacker. I have reviewed the Physician Leather Tacker's notes and agree with the documented findings and plan of care Patient Condition at Discharge: Stable Plan - Discharge Summary Discharge Rx Participant: Yes New Discharge Prescriptions: New Cefuroxime Axetil [Ceftin] 500 mg PO BID #10 tab Tamsulosin [Flomax] 0.4 mg PO DAILY #30 cap Continue PARoxetine HCL [Paxil] 40 mg PO DAILY Lisinopril [Zestril] 20 mg PO DAILY Simvastatin [Zocor] 40 mg PO HS Aspirin 81 mg PO DAILY Famotidine [Pepcid] 20 mg PO BID Cilostazol [Pletal] 100 mg PO BID Albuterol Inhaler [Ventolin Hfa Inhaler] 1 - 2 puff INHALATION RT-Q4H PRN PRN Reason: Shortness Of Breath Discharge Medication List PARoxetine HCL [Paxil] 40 mg PO DAILY 06/08/14 [History] Lisinopril [Zestril] 20 mg PO DAILY 01/20/17 [History] Simvastatin [Zocor] 40 mg PO HS 06/30/18 [History] Aspirin 81 mg PO DAILY 10/27/18 [History] Albuterol Inhaler [Ventolin Hfa Inhaler] 1 - 2 puff INHALATION RT-Q4H PRN 12/10/18 [History] Cilostazol [Pletal] 100 mg PO BID 12/10/18 [History] Famotidine [Pepcid] 20 mg PO BID 12/10/18 [History] Cefuroxime Axetil [Ceftin] 500 mg PO BID #10 tab 12/15/18 [Rx] Tamsulosin [Flomax] 0.4 mg PO DAILY #30 cap 12/15/18 [Rx] Follow up Appointment(s)/Referral(s): [facility], [NON-STAFF] - 1-2 Days Constantine Lewis MD [STAFF PHYSICIAN] - As Needed (New sleep apnea physician.) Tracy Chua MD [Primary Care Provider] - 1 Week Ambulatory/Diagnostic Orders: Basic Metabolic Panel [LAB.AMB] Time Frame: 1 Week, Location: None Selected Activity/Diet/Wound Care/Special Instructions: Diet: cardiac Activity: as tolerated Discharge Disposition: HOME WITH HOME HEALTH SERVICES
[2018-12-15] MEDS ORDERED: FAMOTIDINE 20 MG TAB PO SCH (21:00)
== END 2018-12-15 14:53 | disposition home health service (06) | DRG 683 ==
LOC: EC 13:27 → 4SSUR 16:12
PROVIDERS: ADMIT Internal Medicine; ATTEND Internal Medicine
DX: N17.9 Acute kidney failure, unspecified (principal); E87.2 Acidosis; N39.0 Urinary tract infection, site not specified; E86.0 Dehydration; J44.9 Chronic obstructive pulmonary disease, unspecified; E87.5 Hyperkalemia; I45.10 Unspecified right bundle-branch block; E66.9 Obesity, unspecified; E78.5 Hyperlipidemia, unspecified; F32.9 Major depressive disorder, single episode, unspecified; F41.9 Anxiety disorder, unspecified; G47.30 Sleep apnea, unspecified; I10 Essential (primary) hypertension; I25.10 Atherosclerotic heart disease of native coronary artery without angina pectoris; I44.0 Atrioventricular block, first degree; I49.1 Atrial premature depolarization; I73.9 Peripheral vascular disease, unspecified; K21.9 Gastro-esophageal reflux disease without esophagitis; K52.9 Noninfective gastroenteritis and colitis, unspecified; M19.90 Unspecified osteoarthritis, unspecified site; T36.95XA Adverse effect of unspecified systemic antibiotic, initial encounter; T44.5X5A Adverse effect of predominantly beta-adrenoreceptor agonists, initial encounter; Z68.32 Body mass index [BMI] 32.0-32.9, adult; Z87.891 Personal history of nicotine dependence; Z79.82 Long term (current) use of aspirin; Z79.899 Other long term (current) drug therapy; Z88.0 Allergy status to penicillin; Z90.49 Acquired absence of other specified parts of digestive tract; Z91.81 History of falling; Z80.51 Family history of malignant neoplasm of kidney; Y92.9 Unspecified place or not applicable
CPT/HCPCS: 36415; 71046; 74176; 78582; 80053; 81001; 81003; 82272; 83605; 83735; 83880; 84484; 85025; 85379; 85610; 85730; 87040; 87045; 87046; 87086; 87324; 93005; 96365; 99285

== ENCOUNTER 2019-04-12 08:46 | Emergency (ER) | payer MEDICARE, OTHER ==
[2019-04-12 08:54] VITALS: TEMP 98.3
[2019-04-12] MEDS ORDERED: SODIUM CHLORIDE 0.9% 1,000 ML IV STA (09:24)
--- NOTE | 2019-04-12 09:30 | ED ---
General Adult HPI - General Chief complaint: Fall Stated complaint: fall Time Seen by Provider: 04/12/19 09:11 Source: patient, RN notes reviewed Mode of arrival: wheelchair Limitations: no limitations - History of Present Illness Initial comments: Patient is a pleasant 79-year-old male presenting to the emergency Department with complaints of fall. Fall occurred yesterday. Patient tripped and landed on the ground. Patient struck his left mid/lower chest. Patient has discomfort in that area. Discomfort does increase with sneezing or deep breaths or movement. Patient does not feel short of breath. No abdominal pain. No head injury or loss of consciousness. No neck or back pain. No history of chronic problems in this area. - Related Data Home Medications Medication Instructions Recorded Confirmed PARoxetine HCL [Paxil] 40 mg PO DAILY 06/08/14 04/12/19 Lisinopril [Zestril] 20 mg PO DAILY 01/20/17 04/12/19 Simvastatin [Zocor] 40 mg PO HS 06/30/18 04/12/19 Aspirin 81 mg PO DAILY 10/27/18 04/12/19 Albuterol Inhaler [Ventolin Hfa 1 - 2 puff INHALATION RT-Q4H PRN 12/10/18 04/12/19 Inhaler] Cilostazol [Pletal] 100 mg PO BID 12/10/18 04/12/19 Atorvastatin Calcium [Lipitor] 40 mg PO DAILY 04/12/19 04/12/19 Allergies Allergy/AdvReac Type Severity Reaction Status Date / Time Penicillins Allergy Rash/Hives Verified 04/12/19 08:51 Review of Systems ROS Statement: Those systems with pertinent positive or pertinent negative responses have been documented in the HPI. ROS Other: All systems not noted in ROS Statement are negative. Constitutional: Denies: fever Eyes: Denies: eye pain ENT: Denies: ear pain Respiratory: Denies: cough, dyspnea Cardiovascular: Reports: as per HPI Endocrine: Denies: fatigue Gastrointestinal: Denies: abdominal pain Genitourinary: Denies: dysuria Musculoskeletal: Denies: back pain Skin: Denies: rash Neurological: Denies: weakness Past Medical History Past Medical History: Asthma, Hyperlipidemia, Hypertension, Osteoarthritis (OA), Sleep Apnea/CPAP/BIPAP Additional Past Medical History / Comment(s): cpap, fell in october 2013 and fractured left hip, periodontal infection that delayed hip surgery History of Any Multi-Drug Resistant Organisms: None Reported Past Surgical History: Cholecystectomy, Orthopedic Surgery Additional Past Surgical History / Comment(s): brain tumor removed as a teen, TLH Past Anesthesia/Blood Transfusion Reactions: No Reported Reaction Additional Past Anesthesia/Blood Transfusion Reaction / Comment(s): very severe sleep apnea per patient Past Psychological History: Anxiety, Depression Smoking Status: Former smoker Past Alcohol Use History: None Reported Past Drug Use History: None Reported - Past Family History Brother(s) Family Medical History: Cancer Additional Family Medical History / Comment(s): kidney,liver General Exam Limitations: no limitations General appearance: alert, in no apparent distress Head exam: Present: atraumatic Eye exam: Present: normal appearance Neck exam: Present: normal inspection. Absent: tenderness Respiratory exam: Present: normal lung sounds bilaterally, chest wall tenderness (Left chest anterior below the nipple.) Cardiovascular Exam: Present: regular rate, normal rhythm GI/Abdominal exam: Present: soft, tenderness (Patient does have mild tenderness left upper quadrant), normal bowel sounds. Absent: distended, guarding, rebound, rigid, pulsatile mass Extremities exam: Present: normal inspection Back exam: Present: normal inspection. Absent: tenderness, vertebral tenderness Neurological exam: Present: alert Psychiatric exam: Present: normal affect, normal mood Skin exam: Present: normal color. Absent: rash Course Vital Signs 04/12/19 08:51 Temperature 98.3 F Pulse Rate 69 Respiratory 18 Rate Blood Pressure 142/72 O2 Sat by Pulse 97 Oximetry - Reevaluation(s) Reevaluation #1: 04/12/19 09:39 Patient does not want any pain medication. Medical Decision Making - Medical Decision Making Patient reevaluated and resting comfortably in bed. Patient states pain is under control. Patient updated on results and need for follow-up. Patient states his primary care physician is out of the office for the next month h owever there as an office that he could follow-up with. Patient is also receptive to receiving other numbers for follow-up. Patient is advised specifically on abnormal CT results of the pancreas and need for follow-up for this including probable MRI or possible biopsy. Patient does demonstrate un derstanding and willingness to follow-up. - Lab Data Result diagrams: 04/12/19 09:37 04/12/19 09:37 Lab Results 04/12/19 04/12/19 04/12/19 Range/Units 09:37 09:37 09:37 WBC 7.0 (3.8-10.6) k/uL RBC 3.92 L (4.30-5.90) m/uL Hgb 11.7 L (13.0-17.5) gm/dL Hct 36.1 L (39.0-53.0) % MCV 92.0 (80.0-100.0) fL MCH 29.7 (25.0-35.0) pg MCHC 32.3 (31.0-37.0) g/dL RDW 14.3 (11.5-15.5) % Plt Count 227 (150-450) k/uL Neutrophils % 56 % Lymphocytes % 32 % Monocytes % 6 % Eosinophils % 4 % Basophils % 0 % Neutrophils # 3.9 (1.3-7.7) k/uL Lymphocytes # 2.3 (1.0-4.8) k/uL Monocytes # 0.4 (0-1.0) k/uL Eosinophils # 0.3 (0-0.7) k/uL Basophils # 0.0 (0-0.2) k/uL PT 9.9 (9.0-12.0) sec INR 0.9 (<1.2) APTT 23.0 (22.0-30.0) sec Sodium 142 (137-145) mmol/L Potassium 4.2 (3.5-5.1) mmol/L Chloride 109 H (98-107) mmol/L Carbon Dioxide 26 (22-30) mmol/L Anion Gap 7 mmol/L BUN 24 H (9-20) mg/dL Creatinine 1.07 (0.66-1.25) mg/dL Est GFR (CKD-EPI)AfAm 76 (>60 ml/min/1.73 sqM) Est GFR (CKD-EPI)NonAf 66 (>60 ml/min/1.73 sqM) Glucose 116 H (74-99) mg/dL Calcium 8.9 (8.4-10.2) mg/dL Total Bilirubin 0.4 (0.2-1.3) mg/dL AST 30 (17-59) U/L ALT 27 (21-72) U/L Alkaline Phosphatase 63 (38-126) U/L Total Protein 7.0 (6.3-8.2) g/dL Albumin 3.9 (3.5-5.0) g/dL Amylase 54 (30-110) U/L Lipase 195 (23-300) U/L - Radiology Data Radiology results: report reviewed (Computed tomography scan of the abdomen pelvis shows 3 cm low-density mass in the pancreas.), image reviewed (Rib and chest x-ray do show nondisplaced rib fracture of the fifth rib on the left.) Disposition Clinical Impression: Rib fracture, Pancreatic mass Disposition: HOME SELF-CARE Condition: Stable Instructions (If sedation given, give patient instructions): Rib Fracture (ED) Additional Instructions: Please do follow-up with primary care physician this week. You will need further evaluation of pancreatic mass, possible MRI, possible further evaluation. If unable to see your regular doctor you may follow-up with the other doctors listed or otherwise is advised previously by your doctor. Is patient prescribed a controlled substance at d/c from ED?: No Referrals: Trcay Chua MD [Primary Care Provider] - 1-2 days Zenon Nascimento MD [STAFF PHYSICIAN] - 1-2 days Raegan Werner MD [STAFF PHYSICIAN] - 1-2 days Time of Disposition: 12:11
[2019-04-12 09:55] LABS: Basophils % (A) 0 %; Eosinophils # (A) 0.3 k/uL (0-0.7); Eosinophils % (A) 4 %; HCT 36.1 % (39.0-53.0); HGB 11.7 gm/dL (13.0-17.5); Lymphocytes # (A) 2.3 k/uL (1.0-4.8); Lymphocytes % (A) 32 %; MCH 29.7 pg (25.0-35.0); MCHC 32.3 g/dL (31.0-37.0); Mean Platelet Volume 6.5; Monocytes # (A) 0.4 k/uL (0-1.0); Monocytes % (A) 6 %; Neutrophils # (A) 3.9 k/uL (1.3-7.7); Neutrophils % (A) 56 %; Platelet Count 227 k/uL (150-450); RBC 3.92 m/uL (4.30-5.90); RDW 14.3 % (11.5-15.5)
[2019-04-12 10:03] LABS: INR 0.9 (<1.2); Prothrombin Time 9.9 sec (9.0-12.0)
[2019-04-12 10:06] LABS: Albumin 3.9 g/dL (3.5-5.0); Calcium 8.9 mg/dL (8.4-10.2); Potassium 4.2 mmol/L (3.5-5.1); Total Bilirubin 0.4 mg/dL (0.2-1.3)
--- NOTE | 2019-04-12 10:46 | CT ---
EXAMINATION TYPE: CT abdomen pelvis w con DATE OF EXAM: 04/12/2019 COMPARISON: 12/10/2018 HISTORY: Left-sided pain post fall CT DLP: 1965.8 mGycm Automated exposure control for dose reduction was used. CONTRAST: CT scan of the abdomen pelvis is performed , patient injected with 100 mL of Isovue 300. FINDINGS- LUNG BASES-subsegmental atelectasis or scarring at the lung bases.. LIVER/GB-postcholecystectomy changes noted.. PANCREAS-there is suspicion for a low density mass involving the uncinate process of the pancreas pamela suring 3 cm.. SPLEEN- No gross abnormality is seen. ADRENALS- No gross abnormality is seen. KIDNEYS/BLADDER- no hydronephrosis nephrolithiasis or renal mass. BOWEL- no bowel dilatation. Normal appendix. LYMPH NODES- No greater than 1cm abdominal or pelvic lymph nodes are appreciated. OSSEOUS STRUCTURES-multilevel severe degenerative disc disease. Postsurgical change involving the hip s with artifact.. OTHER- pelvis is limited by artifact from postsurgical changes involving the hips. No obvious sizabl e free fluid collection. No free air. IMPRESSION- 1. There is a 3 cm low density mass involving the uncinate process of the pancreas. Malignancy in the differential diagnosis. Recommend MRI.
--- NOTE | 2019-04-12 11:47 | XR ---
EXAMINATION TYPE: XR ribs LT w pa chest xray DATE OF EXAM: 04/12/2019 CLINICAL HISTORY: Chest pain and left rib pain after fall TECHNIQUE: Single frontal view of the chest is obtained. COMPARISON: 12/10/2018 FINDINGS: There is no focal air space opacity, pleural effusion, or pneumothorax seen. The cardiac silhouette size is mildly enlarged but stable. There is an acute nondisplaced fracture of the posterior lateral margin of rib 5 on the left. No aldo tional acute or chronic fracture deformities are seen in the left. Moderate degenerative changes of t he spine are noted. Cholecystectomy clips are seen. IMPRESSION: 1. Acute nondisplaced rib fracture of the lateral margin of rib 5 on the left. 2. No acute cardiopulmonary process.
[2019-04-12 12:39] VITALS: BP 139/81; PULSE 71; RESP 16
== END 2019-04-12 12:35 | disposition home or self-care (01) ==
LOC: EC 08:46
DX: S22.32XA Fracture of one rib, left side, initial encounter for closed fracture (principal); J45.909 Unspecified asthma, uncomplicated; E78.5 Hyperlipidemia, unspecified; I10 Essential (primary) hypertension; M19.90 Unspecified osteoarthritis, unspecified site; G47.30 Sleep apnea, unspecified; Z99.89 Dependence on other enabling machines and devices; F32.9 Major depressive disorder, single episode, unspecified; F41.9 Anxiety disorder, unspecified; Z87.891 Personal history of nicotine dependence; Z79.82 Long term (current) use of aspirin; Z79.899 Other long term (current) drug therapy; Z88.0 Allergy status to penicillin; W01.0XXA Fall on same level from slipping, tripping and stumbling without subsequent striking against object, initial encounter
CPT/HCPCS: 36415; 80053; 82150; 83690; 85025; 85610; 85730; 71101; 74177; 99284; 96360; 96361 ×2; Q9967

== ENCOUNTER → 2019-04-29 | Outpatient (CLI) | payer MEDICARE, OTHER | END | disposition home or self-care (01) | LOC: RADMRIMAIN 15:44 | PROVIDERS: ATTEND Family Medicine | DX: Z53.9 Procedure and treatment not carried out, unspecified reason (principal) ==

== ENCOUNTER → 2019-12-14 | Outpatient (CLI) | payer MEDICARE, OTHER ==
--- NOTE | 2019-12-14 23:01 | CONS ---
CONSULTATION REASON FOR CONSULTATION: Sleep apnea. This is an 79-year-old male patient. Long-term CPAP user who was using his CPAP for the past 15 years. He was diagnosed having sleep apnea through [facility] in [place]. The patient is going through his 3rd CPAP unit which is a BiPAP unit, a Resmed unit which is set at a pressure of 13/6 cm of water. He is coming to establish himself at our sleep center. He is very compliant to CPAP unit. He continues to use every night without any interruption. I checked the compliance data and over the past 30 days, the patient has been averaging around 8 hours of CPAP use per night and his CPAP use for more than 4 hours is 100%. His leak is in order of 26 L per minute, and the patient's tidal volume is at 360 with a minute ventilation of 5.6 L/minute. Respiratory rate has been around 15 times an hour. The patient's apnea-hypopnea index down to 4.1. The patient has been utilizing a nose pillows, exact type is not clear. In regard to his treatment success, the patient is doing extremely well. He goes to bed around 9:30 p.m, wakes up 11:00 am in the morning. He is very much refreshed and alert during the day. He wakes up a few times in the middle of the night and he can easily fall back to sleep without any major difficulties and there was no significant weight gain over the past 1 year. However the patient has gained around 30 pounds over the past 10 years. No hypersomnia or sleepiness during the day. He seems to be alert and awake. He is able to finish a movie and watch TV show without having to fall asleep and he does not fall asleep while driving. His [facility] is [employer] and he is also requesting a switch to the [employer] in [place]. 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 SURGICAL HISTORY: Includes brain tumor resection at the age of 16, cholecystectomy, bilateral hip replacement and left knee arthroscopy. DRUG ALLERGIES: PENICILLIN. OUTPATIENT MEDICATION LIST: Includes Lasix 40 daily. Lipitor 40 a day. Tylenol on a p.r.n. basis. , lisinopril 10 daily, aspirin 81 mg p.o. daily. SOCIAL HISTORY: An ex-smoker. No history of alcoholism. No history of IV drugs. FAMILY HISTORY: Both parents had CVA and father of massive CVA. REVIEW OF SYSTEMS: Fourteen-point review of system was done. Positive findings are mentioned in history of present illness. A 10 pounds weight gain over the past 1 year. No snoring while on CPAP. No insomnia. No choking or gasping for air. No restlessness in lower extremities. No sleepwalking or sleep talking. No heartburn, no palpitation. No anxiety or panic. He has history of depression, currently on Paxil. He is having some difficulty with memory and concentration in general and this may be related to underlying dementia. BP is 147/67, pulse 77, respirations 16, temperature 16, temp 98.1, saturation 93% on room air. Height is 5 feet 9 inches, weight is 256, and BMI is 37.8. Winlock score of 3. Neck size is 19-3/4 of an inch. GENERAL APPEARANCE: Calm comfortable, obese. Head is atraumatic, normocephalic. NECK: Supple. There is no JVD. No goiter or neck masses. Mallampati class 4. Signs of grinding of the teeth. LUNGS: Clear to auscultation. HEART: Heart sounds are regular rate and rhythm. Normal S1, S2. No S3, S4. No murmurs. ABDOMEN: Soft, nontender. No organomegaly. EXTREMITIES: No edema. No cyanosis or clubbing. NEUROLOGIC: He is awake, alert, there are no focal neurological deficits. PSYCHIATRIC: Negative for anxiety or depression. SKIN is negative for any wounds or ulceration. IMPRESSION: 1. Obstructive sleep apnea. Currently on BiPAP at a pressure of 13/6 with excellent clinical response and compliancy. 2. Obesity BMI of 37.8. 3. Chronic obstructive pulmonary disease, currently inactive and stable. 4. 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 5. Hypertension. 6. Hyperlipidemia. 7. Osteoarthritis. 8. History of depression currently on Paxil. PLAN: 1. Encourage weight loss. 2. Implement good sleep hygiene measures. 3. Continue BiPAP at the same setting of 13/6 which is effective in treating this patient obstructive sleep apnea. 4. I offered this patient AirFit P 30 I large-sized nose pillows and the prescription will be sent to the [facility] in [place]. 5. Implement good sleep hygiene measures. See me back in a year's time in followup, earlier if needed. MMODL / IJN: [id number] /
== END | disposition home or self-care (01) ==
LOC: SLEEP 13:43
PROVIDERS: ATTEND Internal Medicine Critical Care Medicine
DX: G47.33 Obstructive sleep apnea (adult) (pediatric) (principal); E66.9 Obesity, unspecified; Z68.37 Body mass index [BMI] 37.0-37.9, adult; J44.9 Chronic obstructive pulmonary disease, unspecified; I10 Essential (primary) hypertension; E78.5 Hyperlipidemia, unspecified; M19.90 Unspecified osteoarthritis, unspecified site; Z85.841 Personal history of malignant neoplasm of brain; Z86.59 Personal history of other mental and behavioral disorders; Z99.89 Dependence on other enabling machines and devices; Z87.891 Personal history of nicotine dependence; Z79.82 Long term (current) use of aspirin; Z79.899 Other long term (current) drug therapy; Z88.0 Allergy status to penicillin
CPT/HCPCS: 99211

== ENCOUNTER → 2020-05-04 | Outpatient (CLI) | payer MEDICARE, OTHER ==
--- NOTE | 2020-05-04 11:01 | XR ---
EXAMINATION TYPE: XR humerus RT DATE OF EXAM: 05/04/2020 COMPARISON: NONE HISTORY: Pain post fall TECHNIQUE: 2 views submitted. FINDINGS: The osseous structures are intact. No acute fracture. No destructive lesions. AC joint arthropathy. IMPRESSION: 1. No acute fracture or dislocation. 2. Severe AC joint arthropathy correlate for chronic rotator cuff disease.
--- NOTE | 2020-05-04 11:01 | XR ---
EXAMINATION TYPE: XR cervical spine comp DATE OF EXAM: 05/04/2020 COMPARISON: NONE HISTORY: Pain TECHNIQUE: Four views are submitted. FINDINGS: The odontoid is intact. There are no compression deformities. The prevertebral soft tissue structur es are within normal limits. Hypertrophic change C5-C6. No compression deformities. Lung apices gaby r. Mild diffuse osteopenia. Foraminal encroachment C5-6 bilaterally. IMPRESSION: 1. Degenerative disc disease with foraminal encroachment C5-C6
--- NOTE | 2020-05-04 11:02 | XR ---
EXAMINATION TYPE: XR shoulder complete RT DATE OF EXAM: 05/04/2020 COMPARISON: NONE HISTORY: Pain TECHNIQUE: Three views are submitted. FINDINGS: The osseous structures are intact. There is no acute fracture or dislocation. Severe arthropathy AC joint with hypertrophic spurring. Lung apex clear. IMPRESSION: 1. Severe AC joint arthropathy correlate for chronic rotator cuff disease.
--- NOTE | 2020-05-04 11:04 | XR ---
EXAMINATION TYPE: XR ribs RT DATE OF EXAM: 05/04/2020 COMPARISON: NONE HISTORY: Pain TECHNIQUE: 4 views submitted FINDINGS: Severe AC joint arthropathy. Lungs are clear. No acute fracture or dislocation. Surgical cl ips in the right upper quadrant. IMPRESSION: 1. No acute displaced rib fracture. 2. Severe AC joint arthropathy.
== END | disposition home or self-care (01) ==
LOC: RADXRMAIN 09:40
PROVIDERS: ATTEND Family Medicine
DX: M50.322 Other cervical disc degeneration at C5-C6 level (principal); M25.511 Pain in right shoulder; M19.011 Primary osteoarthritis, right shoulder
CPT/HCPCS: 72050

== ENCOUNTER → 2021-02-06 | Outpatient (CLI) | payer MEDICARE, OTHER ==
--- NOTE | 2021-02-06 12:46 | CT ---
EXAMINATION TYPE: CT brain wo con DATE OF EXAM: 02/06/2021 COMPARISON: 06/25/2011 HISTORY: Sudden headache CT DLP: 1217.[address] of the brain was performed. The ventricles, basal cisterns and sulci overlying the cerebral convexities demonstrate mild enlargem ent. There is no evidence for intracranial hemorrhage or sulcal effacement. There is severe confluent decreased attenuation about the periventricular white matter and deep white matter of both cerebral hemispheres, compatible with chronic small vessel ischemia. Differential maggie gnosis does include demyelination. No mass effects are seen.No midline shift. Osseous calvarium is intact. If symptoms persist consider MRI. IMPRESSION: 1. Age related atrophic and chronic small vessel ischemic change without acute intracranial process s een at this time.
== END | disposition home or self-care (01) ==
LOC: RADCTMAIN 11:46
PROVIDERS: ATTEND Family Medicine
DX: I67.82 Cerebral ischemia (principal)
CPT/HCPCS: 70450

== ENCOUNTER → 2021-03-29 | Outpatient (CLI) | payer MEDICARE, OTHER ==
--- NOTE | 2021-03-29 22:18 | CONS ---
CONSULTATION DATE OF SERVICE: 03/29/2021 81-year-old gentleman has been [facility]uated [facility] for obstructive sleep apnea- hypopnea syndrome. HISTORY OF PRESENT ILLNESS/SLEEP WAKE EVALUATION: The patient has history of obstructive sleep apnea for about 15 years. Previously he successfully used his BiPAP equipment, but for the last several months, he stopped using his machine. He feels that machine does not work for him well. He wakes up from sleep several times, has episodes of nocturia and grinding teeth. He sleeps until 10 a.m. in the morning. No clear schedule for time when he goes to bed. The patient was not able to receive his supplies because his [employer] company which he used before possibly closed at the present time. It was [employer]. Richards Sleepiness Scale today is 2. I checked the patient's BiPAP unit, pressure is 13/6 cm of water. For the last year, the patient used it 278 out of 365 nights. Leak is 20 L/minute. Apnea-hypopnea index 7.7, slightly increased. PAST MEDICAL HISTORY: Positive for COPD, back problems, hypertension, hyperlipidemia, depression. PAST SURGICAL HISTORY: WORKPLACE RELATIONS ADVISER tumor removed, cholecystectomy, bilateral hip replacement. SOCIAL HISTORY: Stopped smoking many years ago. Alcohol consumption: None at the present time. MEDICATIONS: Paxil 40 mg once a day, Lasix 40 mg once a day, Lipitor 40 mg once a day, Tylenol, lisinopril 10 mg once a day, aspirin. ALLERGIES: PENICILLIN. FAMILY HISTORY: CVA both parents. REVIEW OF SYSTEMS: Awakenings from sleep. PHYSICAL EXAMINATION: GENERAL: gentleman without distress. BP 117/74, HR 98, RR 18, height 5 feet 7 inches, weight 263.4, temperature 98.8, oxygen saturation at room air 95%. Body mass index 41.1. HEENT: PERRLA, EOMI. Oropharynx low position of soft palate. Mallampati IV. NECK: Supple, no JVD. Thyroid is not palpable. LUNGS: Clear to percussion and to auscultation. Good air exchange. No wheezing or rhonchi. HEART: S1, S2 regular. No murmurs, gallops, or rubs. ABDOMEN: Obese. Soft and nontender. Bowel sounds are present. No organomegaly appreciated. EXTREMITIES: 1+ bilateral ankle edema. WORKPLACE RELATIONS ADVISER: Awake, alert, and oriented X3. Cranial nerves 2 to 7 intact. There is no fasciculation or atrophy. noted. No focal deficits observed. IMPRESSION: 1. Obstructive sleep apnea-hypopnea syndrome. Patient did not use machine before several months, low position of soft palate. 2. Obesity, patient increased weight on about 10 pounds since previous titration. 3. History of chronic obstructive pulmonary disease. 4. History of back problems. 5. Status post WORKPLACE RELATIONS ADVISER tumor removed. 6. Hypertension. 7. Hyperlipidemia. 8. History of depression. 9. Status post bilateral hip replacement. 10.Status post cholecystectomy. 11.History of swelling of the legs. PLAN: 1. Prescription for all necessary CPAP supplies including Vogel FX large nasal pillows, tubes, filters. 2. I again explained to the patient necessity of using the BiPAP therapy every night. Patient promised to start using the equipment immediately. 3. Losing weight. 4. Sleep hygiene with regular time in bed for 7-1/2 to 8 hours. 5. No driving if feeling sleepiness. 6. We will send all necessary prescriptions to DME company. The patient should have new DME company because his previous company has been closed, we should get results of previous sleep studies. Thank you very much for allowing me to participate in management of your patient. Sincerely, Ramos Toledo MD, PhD, FAASM Diplomat of [place] [employer] [place] [employer] Derrick Builder of [facility] [place] MMC[facility] / CECE: [id number] /
== END ==
LOC: SLEEP 13:40
PROVIDERS: ATTEND Internal Medicine
DX: G47.33 Obstructive sleep apnea (adult) (pediatric) (principal); E66.9 Obesity, unspecified; J44.9 Chronic obstructive pulmonary disease, unspecified; I10 Essential (primary) hypertension; E78.5 Hyperlipidemia, unspecified; F32.9 Major depressive disorder, single episode, unspecified; Z96.653 Presence of artificial knee joint, bilateral; Z90.49 Acquired absence of other specified parts of digestive tract; Z86.011 Personal history of benign neoplasm of the brain; Z87.39 Personal history of other diseases of the musculoskeletal system and connective tissue; Z98.890 Other specified postprocedural states; Z99.89 Dependence on other enabling machines and devices; Z79.899 Other long term (current) drug therapy; Z88.0 Allergy status to penicillin; Z87.891 Personal history of nicotine dependence
CPT/HCPCS: 99211

== ENCOUNTER 2021-07-13 10:42 | Day surgery (SDC) | payer MEDICARE, OTHER ==
[2021-07-12 14:11] VITALS: BMI 36.7
[~2021-07-13 10:42] MED LIST changes: +ALPRAZolam 0.5 MG TAB PO PRN; +ASPIRIN 325 MG TAB PO ONE; -ASPIRIN 325 MG TAB PO STA; +ATORVASTATIN 80 MG TAB PO ONE; -HYDROmorphone 1 MG/ML 1 ML SYRINGE IVP ONE; -IOPAMIDOL-250 100ML BTL INJ ONE; -IOPAMIDOL-250 50ML BTL INTRAARTER ONE; -LIDOCAINE 1% INJ 10MG/ML (20 ML MDV) SQ ONE; -MIDAZOLAM 2 MG/2 ML VIAL IVP ONE; +NITROGLYCERIN SL TABS 0.4 MG TAB SUBLINGUAL PRN; -SODIUM CHLORIDE 0.9% 1,000 ML IV ONE; -SODIUM CHLORIDE 0.9% 1,000 ML IV SCH; -SODIUM CHLORIDE 0.9% 1,000 ML in EMPTY BAG 1 BAG IV ONE
[2021-07-13] MEDS ORDERED: SODIUM CHLORIDE 0.9% 1,000 ML IV ONE (11:15)
[2021-07-13 11:24] LABS: Basophils % (A) 0 %; Eosinophils # (A) 0.2 k/uL (0-0.7); Eosinophils % (A) 3 %; HCT 34.6 % (39.0-53.0); HGB 11.6 gm/dL (13.0-17.5); Lymphocytes % (A) 26 %; MCH 32.1 pg (25.0-35.0); MCHC 33.4 g/dL (31.0-37.0); Monocytes # (A) 0.4 k/uL (0-1.0); Monocytes % (A) 5 %; Neutrophils # (A) 4.9 k/uL (1.3-7.7); Neutrophils % (A) 64 %; Platelet Count 225 k/uL (150-450); RBC 3.61 m/uL (4.30-5.90); RDW 15.9 % (11.5-15.5); WBC 7.7 k/uL (3.8-10.6)
[2021-07-13 11:38] LABS: Calcium 9.1 mg/dL (8.4-10.2)
[2021-07-13 11:41] LABS: Potassium 5.1 mmol/L (3.5-5.1)
[2021-07-13] MEDS ORDERED: MIDAZOLAM 2 MG/2 ML VIAL IVP ONE (12:40)
[2021-07-13] MEDS ORDERED: LIDOCAINE 1% INJ 10MG/ML (20 ML MDV) SQ ONE (12:44)
[2021-07-13] MEDS ORDERED: fentaNYL (PF) 50 MCG/ML 2 ML AMP IVP ONE (12:49)
[2021-07-13] MEDS ORDERED: HEPARIN SODIUM 1,000 UN/ML (10ML VL) IV ONE (13:14)
[2021-07-13] MEDS ORDERED: CLOPIDOGREL 75 MG TAB PO ONE (13:37)
[2021-07-13] MEDS ORDERED: IOPAMIDOL-250 100ML BTL IV ONE (13:37)
[2021-07-13] MEDS ORDERED: SODIUM CHLORIDE 0.9% 1,000 ML IV SCH (13:45)
[2021-07-13] MEDS ORDERED: HYDROmorphone 1 MG/ML 1 ML SYRINGE IVP PRN (14:04)
[2021-07-13] MEDS ORDERED: HYDROmorphone 1 MG/ML 1 ML SYRINGE IVP ONE (14:13)
--- NOTE | 2021-07-13 14:56 | IR ---
Fluoroscopy HISTORY: Bilateral leg ulcers 4.6 minutes fluoroscopy time supplied to the referring clinician. 41 intraoperative C-arm images doc ument the procedure. See dictated report from cardiology.
[2021-07-13] MEDS: SODIUM CHLORIDE 0.9% 1,000 ML in EMPTY BAG 1 BAG IV SCH ×3 (16:41→21:22)
--- NOTE | 2021-07-13 17:29 | AN ---
ANGIOGRAPHY REPORT PERFORMING PHYSICIAN: Pio Cruz MD. PROCEDURE PERFORMED: 1. Intravascular ultrasound (IVUS) of the inferior vena cava as well as bilateral common iliac veins as well as external iliac veins as well as common femoral veins. 2. Angiogram of the inferior vena cava as well as bilateral common iliac veins as well as external iliac veins as well as common femoral veins. 3. Successful stenting of the right common iliac vein using 18 x 90 mm self-expandable stent with an excellent angiographic results. 4. Ultrasound-guided access of the right and left common femoral veins. INDICATIONS: This is a pleasant 81-year-old gentleman who sees Dr. Ann regularly who continues to struggle with bilateral lower extremity edema and evidence of venous ulcers on the graham. He treated medically, but he continues to be symptomatic and because of that he was brought today to undergo IVUS of the venous system of the lower extremities. APPROACH: Right and left common femoral veins. COMPLICATION: None. LEVEL OF SEDATION: Moderate with sedation length of 15 minutes. PROCEDURE DESCRIPTION: After obtaining an informed consent, the patient was brought to the cardiac denture laboratory technician. The right and left common femoral veins were cannulated using micropuncture technique under ultrasound guidance, then I placed a 10-Welsh sheath in both femoral veins bilaterally. Subsequently, I did start anticoagulation using heparin with continuous ACT monitoring throughout the procedure. After that I did intravascular ultrasound (IVUS) of the inferior vena cava, as well as bilateral common iliac veins and external iliac veins and common femoral veins. The IVUS of the left femoral system appeared to be unremarkable. The IVUS of the right venous system came into be significant for stenosis involving the right common iliac vein and because of that I decided to stent that. Please see a separate report for that. Please note that I did bilateral angiogram in the beginning as well. INTRAVASCULAR ULTRASOUND IVUS FINDINGS: INFERIOR VENA CAVA: The area stenosis was 327 mm2. COMMON ILIAC VEIN: On the right side, the area stenosis was 53%. On the left side, the area stenosis was 26%. EXTERNAL ILIAC VEINS: On the right side the area of stenosis was 0%, on the left side the area of stenosis was 9%. COMMON FEMORAL VEINS: On the right side the area of stenosis was 0%. On the left side the area of stenosis was 0%. STENTING OF THE RIGHT COMMON ILIAC VEIN: As mentioned earlier, anticoagulation was achieved using heparin. Subsequently I did engage deploy 18 x 90 mm self-expandable stent where the stent was positioned under fluoroscopy guidance and deployed under fluoroscopic guidance. Post dilated using 18 mm balloon. The following IVUS showed excellent position of the stent in the vein. The procedure was completed without any complication. POSTPROCEDURE MANAGEMENT: 1. Dual anti-platelet therapy. 2. Patient can be discharged home later on today and followup with Dr. Ann. MMODL / IJN: [id number] /
[2021-07-14 01:12] VITALS: PULSE 79
[2021-07-14 07:20] VITALS: BP 101/58; RESP 20; TEMP 98.4
--- NOTE | 2021-07-14 13:01 | DS ---
DISCHARGE SUMMARY DATE OF ADMISSION: 07/13/2021. DATE OF DISCHARGE: 07/14/2021. DIAGNOSE: Bilateral venous insufficiency. HISTORY: Mr. Regalado is a patient of Dr. Ann. He was brought in for intravascular ultrasound of inferior vena cava and bilateral common iliac veins. He underwent stenting of right common iliac vein. He is at this time doing very well post procedure, both groins are clean and dry pulses are good. There is no ecchymosis. His vitals are stable. He is resting comfortably without symptoms. His other comorbid conditions include hypertension and benign prostatic hypertrophy with chronic lower extremity edema. Vitals are stable. No JVD. S1-S2 heard normally. Short systolic murmur is evident. Lungs reveal bilateral decent air entry. Abdomen is soft. Lower extremities reveal diminished pulses. Central nervous system grossly no focal deficits. RECOMMENDATIONS: This patient can be discharged today and his medications were reviewed. He will continue the same home medications. Follow up with Dr. Ann in about 1 week as an outpatient. Discharge instructions were given. MMODL / IJN: [id number] /
== END 2021-07-14 10:13 | disposition home or self-care (01) ==
LOC: CATHCVL 10:42 → 6NMEDSUR 13:31 → CATHCVL 07-14 10:13
PROVIDERS: ATTEND Internal Medicine Interventional Cardiology
DX: I87.2 Venous insufficiency (chronic) (peripheral) (principal); I10 Essential (primary) hypertension; L97.919 Non-pressure chronic ulcer of unspecified part of right lower leg with unspecified severity; L97.929 Non-pressure chronic ulcer of unspecified part of left lower leg with unspecified severity; N40.0 Benign prostatic hyperplasia without lower urinary tract symptoms; E78.5 Hyperlipidemia, unspecified; F17.210 Nicotine dependence, cigarettes, uncomplicated; Z79.82 Long term (current) use of aspirin; Z79.899 Other long term (current) drug therapy; I73.9 Peripheral vascular disease, unspecified
CPT/HCPCS: 37252 ×2; 37253; 36010; 75825; 75822; 76937; 37238; 80048; 85025; 87635; C1769 ×4; C1894; C1753; C1725; C1876; J2250; J2001; J3010; J1644; J1170; Q9966

== ENCOUNTER → 2021-08-30 | Outpatient (CLI) | payer MEDICARE, OTHER ==
--- NOTE | 2021-08-30 15:38 | US ---
EXAMINATION TYPE: US kidneys/renal and bladder DATE OF EXAM: 08/30/2021 COMPARISON: CT 2019 CLINICAL HISTORY: CKD N28.9. EXAM MEASUREMENTS: Right Kidney: 10.7x4.1x4.4 cm Left Kidney: 11.9x5.8x5.1 cm Right Kidney: No hydronephrosis or masses seen Left Kidney: No hydronephrosis or masses seen Bladder: wnl Bilateral Jets seen: No There is no evidence for hydronephrosis at this point in time. No nephrolithiasis is seen. No jose s are identified. The urinary bladder is anechoic. Bilateral ureteral jets are seen. IMPRESSION: No significant abnormality appreciated.
== END ==
LOC: RADUSWWP 14:58
PROVIDERS: ATTEND Family Medicine
DX: N18.9 Chronic kidney disease, unspecified (principal)
CPT/HCPCS: 76770

== ENCOUNTER 2021-10-09 15:30 | Emergency (ER) | payer MEDICARE, OTHER ==
[2021-10-09 15:34] VITALS: TEMP 98.5
--- NOTE | 2021-10-09 16:05 | ED ---
General Adult HPI - General Chief complaint: Wound/Laceration Stated complaint: Leg Wounds Time Seen by Provider: 10/09/21 15:55 Source: patient, EMS, RN notes reviewed, old records reviewed Mode of arrival: EMS Limitations: no limitations - History of Present Illness Initial comments: 81-year-old male presents to the emergency room with chronic bilateral lower extremity ulcers. States he has had ulcers since January and was getting wound care outpatient however he states that he has not seen a doctor in over a month because he is on vacation. He states his primary care doctor was Dr. Buckley and she turned over her practice to a bread stacker who will not see him. Patient states this pain is worse and they are burning. He denies any fevers, nausea vomiting or diarrhea. -: month(s) (8) Location: left, right, lower extremity Severity scale (1-10): 6 Quality: burning Consistency: constant Improves with: none Associated Symptoms: denies other symptoms Treatments Prior to Arrival: none - Related Data Home Medications Medication Instructions Recorded Confirmed PARoxetine HCL [Paxil] 40 mg PO DAILY 06/08/14 07/13/21 lisinopriL [Zestril] 10 mg PO DAILY 01/20/17 07/13/21 Aspirin 81 mg PO DAILY 10/27/18 07/13/21 Albuterol Inhaler (Mhu) [Ventolin 1 - 2 puff INHALATION RT-Q4H PRN 12/10/18 07/12/21 Hfa Inhaler (Mhu)] Acetaminophen with Codeine 1 tab PO DAILY PRN 07/12/21 07/12/21 [Tylenol w/Codeine #4 Tablet] Ergocalciferol [Vitamin D2 (1250 1,250 mcg PO WEEKLY 07/12/21 07/12/21 Mcg = 02905 Iu)] Folic Acid 1 mg PO DAILY 07/12/21 07/12/21 Tamsulosin [Flomax] 0.4 mg PO DAILY 07/12/21 07/13/21 Torsemide [Demadex] 20 mg PO DIRECTED 07/12/21 07/13/21 Allergies Allergy/AdvReac Type Severity Reaction Status Date / Time Penicillins Allergy Rash/Hives Verified 07/12/21 13:58 Review of Systems ROS Statement: Those systems with pertinent positive or pertinent negative responses have been documented in the HPI. ROS Other: All systems not noted in ROS Statement are negative. Past Medical History Past Medical History: Asthma, Cancer, Hyperlipidemia, Hypertension, Osteoarthritis (OA), Sleep Apnea/CPAP/BIPAP Additional Past Medical History / Comment(s): cpap, fell in october 2013 and fractured left hip, periodontal infection that delayed hip surgery. 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 Past Surgical History: Cholecystectomy, Joint Replacement, Orthopedic Surgery Additional Past Surgical History / Comment(s): brain tumor removed as a teen, cami hip replacement Past Anesthesia/Blood Transfusion Reactions: No Reported Reaction Additional Past Anesthesia/Blood Transfusion Reaction / Comment(s): very severe sleep apnea per patient Past Psychological History: Anxiety, Depression Smoking Status: Former smoker Past Alcohol Use History: None Reported Past Drug Use History: None Reported - Past Family History Brother(s) Family Medical History: Cancer Additional Family Medical History / Comment(s): kidney,liver General Exam Limitations: no limitations General appearance: alert, in no apparent distress Eye exam: Present: normal appearance, EOMI ENT exam: Present: normal exam, normal oropharynx, mucous membranes moist Neck exam: Present: full ROM. Absent: meningismus Respiratory exam: Present: normal lung sounds bilaterally. Absent: respiratory distress, wheezes, rales, rhonchi, stridor, chest wall tenderness, accessory muscle use, decreased breath sounds Cardiovascular Exam: Present: regular rate, normal heart sounds GI/Abdominal exam: Present: soft, normal bowel sounds. Absent: distended, tenderness, guarding, rebound, rigid Left Lower Leg exam: Present: tenderness (Chronic ulcerations), erythema. Absent: Homans' sign Neurovascular tendon exam: Present: no vascular compromise. Absent: extremity cold to touch Right Lower Leg exam: Present: tenderness (Chronic ulcerations peeling skin), erythema Back exam: Present: normal inspection, full ROM. Absent: tenderness, CVA tenderness (R), CVA tenderness (L), rash noted Neurological exam: Present: alert, oriented X3 Psychiatric exam: Present: normal affect, normal mood Skin exam: Present: warm, dry, intact, normal color, other (peeling red peeling bilateral lower extremity wounds chronic). Absent: rash, cyanosis, diaphoretic Course Vital Signs 10/09/21 15:32 Temperature 98.5 F Pulse Rate 91 Respiratory 20 Rate Blood Pressure 98/56 O2 Sat by Pulse 95 Oximetry Medical Decision Making - Medical Decision Making 81-year-old male presents to the emergency room with chronic bilateral lower extremity ulcers. States he has had ulcers since January and was getting wound care outpatient. Wound care was not reordered and his PCP was Dr Chua. He was given a referral for wound care and they will contact him in the morning. Bacitracin dressings were placed on the wounds and wrapped by the nurses. There is no erythema or signs of cellulitis. Patient is afebrile with no nausea vomiting diarrhea. He'll be discharged home. Case discussed with Dr. Peck. Disposition Clinical Impression: Encounter for wound care Disposition: HOME SELF-CARE Condition: Good Instructions (If sedation given, give patient instructions): Chronic Wound Care (ED) Additional Instructions: Someone from wound care will call you tomorrow morning. Keep the dressings on that we've placed today. Follow-up with the primary care doctor this week for continuation of care. Is patient prescribed a controlled substance at d/c from ED?: No Referrals: None,Stated [Primary Care Provider] - 1-2 days Keo North MD [REFERRING] - 1-2 days Time of Disposition: 16:42
[2021-10-09] MEDS ORDERED: BACITRACIN ZINC 500 UNIT/GM OINT 28.4 GM TUBE TOPICAL ONE (16:39)
[2021-10-09 17:43] VITALS: BP 100/64; PULSE 100; RESP 24
== END 2021-10-09 17:42 | disposition home or self-care (01) ==
LOC: EC 15:30
DX: Z48.00 Encounter for change or removal of nonsurgical wound dressing (principal); J45.909 Unspecified asthma, uncomplicated; E78.5 Hyperlipidemia, unspecified; I10 Essential (primary) hypertension; M19.90 Unspecified osteoarthritis, unspecified site; F41.9 Anxiety disorder, unspecified; F32.A Depression, unspecified; Z87.891 Personal history of nicotine dependence
CPT/HCPCS: 99283

== ENCOUNTER 2021-12-31 14:46 | Emergency (ER) | payer MEDICARE, OTHER ==
[2021-12-31 14:56] VITALS: RESP 18
[2021-12-31] MEDS ORDERED: SODIUM CHLORIDE 0.9% 500 ML 500 ML IV STA (15:46)
--- NOTE | 2021-12-31 16:03 | CT ---
EXAMINATION TYPE: CT brain cspine wo con DATE OF EXAM: 12/31/2021 COMPARISON: CT dated 02/06/2021 HISTORY: Headache. CT DLP: 1753 mGycm Automated exposure control for dose reduction was used. TECHNIQUE: CT scan of the head and cervical spine are performed without contrast. FINDINGS: Brain: Bilateral cerebral white matter hypodensities likely representing advanced chronic microvascular isch emic changes. No acute intracranial hemorrhage or gross acute cortical infarct. No midline shift or h erniation. Unremarkable basal cisterns, sella and CP angles. No gross space-occupying lesion, vasogenic edema or mass effect. No gross orbital abnormality. Mucosa l thickening right sphenoid sinus compartment. Clear mastoid air cells. Stable right parietal bone me tallic plate. Cervical spine: No significant anterolisthesis or retrolisthesis. No definite vertebral body collapse or acute displa rogelio fracture. Unremarkable atlantoaxial and atlantooccipital articulations. No facet dislocation or s ignificant subluxation. Multilevel opposing endplate osteophytosis. Multilevel facet osteoarthropathy. Severe right C5-6 neur oforaminal stenosis. No significant bony central spinal canal stenosis. Slightly enlarged left palati ne tonsil, please correlate clinically. Underlying lesion can't be excluded. Heterogeneous thyroid gland with hypodensity within and enlarged left thyroid lobe, please correlate with thyroid ultrasound results. No paraspinal lesion. Scattered arterial atherosclerotic calcificati ons. IMPRESSION: 1. No acute intracranial hemorrhage or gross acute cortical infarct. Bilateral cerebral white matter chronic microvascular changes. A small acute or hyperacute infarct cannot be excluded. 2. No acute traumatic bony injury of the cervical spine. Degenerative changes of the cervical spine a nd other incidental findings as described above.
--- NOTE | 2021-12-31 16:06 | XR ---
EXAMINATION TYPE: AP view pelvis and 2 views left hip DATE OF EXAM: 12/31/2021 Comparison: Abdomen pelvis CT 04/12/2019 Clinical History: 81-year-old male left hip pain for 3 months Findings: Bilateral total hip arthroplasties are present. There is subarticular sclerosis at the bilateral SI j oints compatible with underlying degenerative change. Right iliac stent is present. Corticated bone f ragment above the left greater trochanter measuring 3.4 cm, unchanged from 2019. The left acetabular cup and femoral stem components of the prosthesis are well seated without periprosthetic fracture. Al ignment grossly anatomic. Impression: 1. Bilateral total hip arthroplasties. This distal aspect of the femoral stem on the right is not inc luded in the [id number]. Heterotopic ossification measuring 3.4 cm above the left greater trochant er is unchanged back to 2019. No evident complication or acute osseous abnormality seen. 2. Mild bilateral SI joint OA.
--- NOTE | 2021-12-31 16:12 | ED ---
General Adult HPI - General Chief complaint: Headache Stated complaint: headache Time Seen by Provider: 12/31/21 15:04 Source: patient, EMS Mode of arrival: EMS Limitations: no limitations - History of Present Illness Initial comments: This 81-year-old male presents emergency Department with headache and left hip pain. Patient states he has fallen multiple times over the last 2 months and states his left hip has been bothering him 3 months. Patient states his last fall was in November. Patient states beginning last night he began to have a headache that is dull in nature. Patient states it has slowly been progressing. 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 Patient denies getting headaches often. Patient states his headache is currently 6/10. He denies any visual changes or abrupt onset of headache. Patient states he also has bilateral lower extremity cellulitis and does see his primary care provider for this and states it's been present since last April. Patient states he is supposed to see wound care but has not followed up yet with an appointment. Patient denies any changes in his cellulitis from last April. Patient denies any chest pain, shortness of breath, abdominal pain, nausea, vomiting, change in bowel or bladder, neck pain, back pain, bowel or bladder retention/incontinence, double or blurred vision, lightheadedness, dizziness, cough, fever. Patient denies any weakness, trouble speaking, trouble eating/swallowing. - Related Data Home Medications Medication Instructions Recorded Confirmed PARoxetine HCL [Paxil] 40 mg PO DAILY 06/08/14 12/31/21 lisinopriL [Zestril] 10 mg PO DAILY 01/20/17 12/31/21 Folic Acid 1 mg PO DAILY 07/12/21 12/31/21 Tamsulosin [Flomax] 0.4 mg PO HS 07/12/21 12/31/21 Torsemide [Demadex] 20 mg PO DAILY 07/12/21 12/31/21 Atorvastatin [Lipitor] 40 mg PO DAILY 12/31/21 12/31/21 Clopidogrel [Plavix] 75 mg PO DAILY 12/31/21 12/31/21 Allergies Allergy/AdvReac Type Severity Reaction Status Date / Time Penicillins Allergy Rash/Hives Verified 12/31/21 16:15 Review of Systems ROS Statement: Those systems with pertinent positive or pertinent negative responses have been documented in the HPI. ROS Other: All systems not noted in ROS Statement are negative. Past Medical History Past Medical History: Asthma, Cancer, Hyperlipidemia, Hypertension, Osteoarthritis (OA), Sleep Apnea/CPAP/BIPAP Additional Past Medical History / Comment(s): cpap, fell in october 2013 and fractured left hip, periodontal infection that delayed hip surgery. 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 Past Surgical History: Cholecystectomy, Joint Replacement, Orthopedic Surgery Additional Past Surgical History / Comment(s): brain tumor removed as a teen, cami hip replacement Past Anesthesia/Blood Transfusion Reactions: No Reported Reaction Additional Past Anesthesia/Blood Transfusion Reaction / Comment(s): very severe sleep apnea per patient Past Psychological History: Anxiety, Depression Smoking Status: Former smoker Past Alcohol Use History: None Reported Past Drug Use History: None Reported - Past Family History Brother(s) Family Medical History: Cancer Additional Family Medical History / Comment(s): kidney,liver General Exam Limitations: no limitations General appearance: alert, in no apparent distress Head exam: Present: atraumatic, normocephalic, normal inspection, other (No pain over the temporal region of bilateral signs of scalp) Eye exam: Present: normal appearance, PERRL, EOMI. Absent: scleral icterus, c onjunctival injection, periorbital swelling Pupils: Present: normal accommodation ENT exam: Present: normal exam, mucous membranes moist Neck exam: Present: normal inspection. Absent: tenderness, meningismus, lymphadenopathy Respiratory exam: Present: normal lung sounds bilaterally. Absent: respiratory distress, wheezes, rales, rhonchi, stridor Cardiovascular Exam: Present: regular rate, normal rhythm, normal heart sounds. Absent: systolic murmur, diastolic murmur, rubs, gallop, clicks GI/Abdominal exam: Present: soft, normal bowel sounds. Absent: distended, tenderness, guarding, rebound, rigid Extremities exam: Present: normal inspection (Patient with bilateral lower extremity cellulitis. No warmth or sign of acute infection present. Crusting and mild erythema bilaterally which patient states has been there since last April), full ROM, normal capillary refill, other (Patient with pain to the lateral side of left hip. Patient was able to flex and extend left leg at the knee and hip. Patient able to raise leg on his own facility he did have left hip pain when doing so. No pain to patient's left anterior or posterior hip). Absent: tenderness, pedal edema, joint swelling, calf tenderness Back exam: Present: normal inspection, full ROM. Absent: tenderness, CVA tenderness (R), CVA tenderness (L), paraspinal tenderness, vertebral tenderness Neurological exam: Present: alert, oriented X3, CN II-XII intact Psychiatric exam: Present: normal affect, normal mood Skin exam: Present: warm, dry, intact, normal color. Absent: rash Course Vital Signs 12/31/21 14:50 Temperature 98.7 F Pulse Rate 87 Respiratory 18 Rate Blood Pressure 116/71 O2 Sat by Pulse 98 Oximetry Medical Decision Making - Medical Decision Making This 81-year-old male percents emergency department with left hip pain 3 months along with a tension headache that began at 8:00 PM last night. After receiving fluids and Tylenol, patient states his headache resolved. CT brain and C-spine without any acute abnormalities. Left hip x-ray with AP pelvis without any acute abnormalities. Normal white blood cell, ESR 85, C-reactive protein 3.0, creatinine 1.49, BUN 22. Fluids and Tylenol given with improvement of patient's symptoms, he was requesting to go home after receiving these. He states his left hip pain significantly decreased and was able to get up and walk around the room without any difficulty. Patient was requesting to go home and stated he would follow-up with his primary care provider in the next couple of days. I did instruct him to see wound care that his primary care provider did instruct him to see prior which he states he didn't get to. Strict return precautions were discussed with patient. Patient verbally agreed that he'll return if his symptoms return for any new, worsening or concerning symptoms arise. Patient stated he would follow up with his primary care provider in the next couple days. Patient sent home in stable condition. Case was discussed with my attending, who also saw patient. - Lab Data Result diagrams: 12/31/21 16:25 12/31/21 16:25 Lab Results 12/31/21 12/31/21 12/31/21 Range/Units 16:25 16:25 16:25 WBC 5.4 (3.8-10.6) k/uL RBC 3.86 L (4.30-5.90) m/uL Hgb 12.5 L (13.0-17.5) gm/dL Hct 37.8 L (39.0-53.0) % MCV 97.8 (80.0-100.0) fL MCH 32.4 (25.0-35.0) pg MCHC 33.1 (31.0-37.0) g/dL RDW 17.8 H (11.5-15.5) % Plt Count 221 (150-450) k/uL MPV 7.0 Neutrophils % 71 % Lymphocytes % 15 % Monocytes % 10 % Eosinophils % 2 % Basophils % 1 % Neutrophils # 3.8 (1.3-7.7) k/uL Lymphocytes # 0.8 L (1.0-4.8) k/uL Monocytes # 0.5 (0-1.0) k/uL Eosinophils # 0.1 (0-0.7) k/uL Basophils # 0.1 (0-0.2) k/uL Anisocytosis Slight ESR 85 H (0-15) mm/hr Sodium 140 (137-145) mmol/L Potassium 4.5 (3.5-5.1) mmol/L Chloride 104 (98-107) mmol/L Carbon Dioxide 25 (22-30) mmol/L Anion Gap 11 mmol/L BUN 22 H (9-20) mg/dL Creatinine 1.49 H (0.66-1.25) mg/dL Est GFR (CKD-EPI)AfAm 50 (>60 ml/min/1.73 sqM) Est GFR (CKD-EPI)NonAf 43 (>60 ml/min/1.73 sqM) Glucose 105 H (74-99) mg/dL Plasma Lactic Acid Jordan 1.6 (0.7-2.0) mmol/L Calcium 8.9 (8.4-10.2) mg/dL Total Bilirubin 0.9 (0.2-1.3) mg/dL AST 111 H (17-59) U/L ALT 48 (4-49) U/L Alkaline Phosphatase 58 (38-126) U/L C-Reactive Protein 3.0 H (<1.0) mg/dL Total Protein 8.2 (6.3-8.2) g/dL Albumin 4.1 (3.5-5.0) g/dL - Radiology Data Radiology results: report reviewed, image reviewed Disposition Clinical Impression: Chronic left hip pain, Tension headache Disposition: HOME SELF-CARE Condition: Stable Instructions (If sedation given, give patient instructions): Acute Headache (ED), Hip Pain (ED) Additional Instructions: Please return to the emergency department with any new, worsening, or concerning symptoms. Follow-up with your primary care provider in next 24-48 hours. Is patient prescribed a controlled substance at d/c from ED?: No Referrals: Laurie Waite MD [Primary Care Provider] - 1-2 days Twin Torrez [STAFF PHYSICIAN] - 1-2 days Time of Disposition: 17:58
[2021-12-31] MEDS ORDERED: ACETAMINOPHEN TAB 325 MG TAB PO STA (16:20)
[2021-12-31 16:37] LABS: Anisocytosis Slight; Basophils # (A) 0.1 k/uL (0-0.2); Basophils % (A) 1 %; Eosinophils # (A) 0.1 k/uL (0-0.7); Eosinophils % (A) 2 %; HCT 37.8 % (39.0-53.0); HGB 12.5 gm/dL (13.0-17.5); Lymphocytes # (A) 0.8 k/uL (1.0-4.8); Lymphocytes % (A) 15 %; MCH 32.4 pg (25.0-35.0); MCHC 33.1 g/dL (31.0-37.0); MCV 97.8 fL (80.0-100.0); Monocytes # (A) 0.5 k/uL (0-1.0); Monocytes % (A) 10 %; Neutrophils # (A) 3.8 k/uL (1.3-7.7); Neutrophils % (A) 71 %; Platelet Count 221 k/uL (150-450); RBC 3.86 m/uL (4.30-5.90); RDW 17.8 % (11.5-15.5); WBC 5.4 k/uL (3.8-10.6)
[2021-12-31 16:47] LABS: Albumin 4.1 g/dL (3.5-5.0); Calcium 8.9 mg/dL (8.4-10.2); Potassium 4.5 mmol/L (3.5-5.1); Total Bilirubin 0.9 mg/dL (0.2-1.3); Total Protein 8.2 g/dL (6.3-8.2)
[2021-12-31 17:26] LABS: Erythrocyte Sedimentation Rate 85 mm/hr (0-15)
[2021-12-31 18:54] VITALS: BP 121/48; PULSE 90; TEMP 98.6
== END 2021-12-31 18:54 | disposition home or self-care (01) ==
LOC: EC 14:46
DX: G44.209 Tension-type headache, unspecified, not intractable (principal); M25.552 Pain in left hip; G89.29 Other chronic pain; J45.909 Unspecified asthma, uncomplicated; E78.5 Hyperlipidemia, unspecified; I10 Essential (primary) hypertension; M19.90 Unspecified osteoarthritis, unspecified site; F41.9 Anxiety disorder, unspecified; F32.A Depression, unspecified; Z79.02 Long term (current) use of antithrombotics/antiplatelets; Z88.0 Allergy status to penicillin; Z90.49 Acquired absence of other specified parts of digestive tract; Z96.643 Presence of artificial hip joint, bilateral; Z87.891 Personal history of nicotine dependence
CPT/HCPCS: 36415; 70450; 72125; 73502; 80053; 83605; 85025; 85652; 86140; 87040; 99284

== ENCOUNTER 2022-02-05 14:56 | Inpatient (IN) | payer MEDICARE, OTHER ==
[2022-02-05] MEDS ORDERED: PANTOPRAZOLE 40 MG/10 ML VIAL IVP STA (15:26)
[2022-02-05] MEDS ORDERED: SODIUM CHLORIDE 0.9% 2,000 ML IV STA (15:26)
[2022-02-05] MEDS ORDERED: MORPHINE SULFATE 2 MG/ML SYRINGE IVP STA (15:26)
--- NOTE | 2022-02-05 15:30 | ED ---
General Adult HPI - General Chief complaint: Abdominal Pain Stated complaint: abd pain Time Seen by Provider: 02/05/22 15:07 Source: patient, EMS, RN notes reviewed Mode of arrival: EMS Limitations: altered mental status - History of Present Illness Initial comments: Patient is a pleasant 82-year-old male presenting to the emergency Department with abdominal discomfort. Onset of symptoms was around 1 week ago. Symptoms have progressively worsened and is starting to become severe. Patient was in the hospital recently for pneumonia. Patient denies any dyspnea. Patient is on home O2. No fevers. No vomiting. Patient has had some diarrhea. Patient is a poor historian. - Related Data Home Medications Medication Instructions Recorded Confirmed PARoxetine HCL [Paxil] 40 mg PO DAILY 06/08/14 02/05/22 Folic Acid 1 mg PO HS 07/12/21 02/05/22 Tamsulosin [Flomax] 0.4 mg PO HS 07/12/21 02/05/22 Torsemide [Demadex] 20 mg PO DAILY 07/12/21 02/05/22 Atorvastatin [Lipitor] 40 mg PO HS 12/31/21 02/05/22 Clopidogrel [Plavix] 75 mg PO HS 12/31/21 02/05/22 Acetaminophen [Acetaminophen ER] 650 mg PO Q4H PRN 02/05/22 02/05/22 Ammonium Lactate Cream [Lac-Hydrin 1 applic TOPICAL BID 02/05/22 02/05/22 12% Cream] Ascorbic Acid [Vitamin C] 250 mg PO DAILY 02/05/22 02/05/22 Enoxaparin [Lovenox] 40 mg SQ HS 02/05/22 02/05/22 Melatonin 3 mg PO HS 02/05/22 02/05/22 Zinc Sulfate [Orazinc] 220 mg PO HS 02/05/22 02/05/22 lisinopriL [Zestril] 5 mg PO DAILY 02/05/22 02/05/22 metFORMIN HCL [Glucophage] 500 mg PO DAILY@1600 02/05/22 02/05/22 Previous Rx's Medication Instructions Recorded Cholecalciferol [Vitamin D3 (125 125 mcg PO DAILY 14 Days #14 tablet 01/16/22 Mcg = 5000 Iu)] Allergies Allergy/AdvReac Type Severity Reaction Status Date / Time Penicillins Allergy Rash/Hives Verified 02/05/22 15:59 Review of Systems ROS Statement: Those systems with pertinent positive or pertinent negative responses have been documented in the HPI. ROS Other: All systems not noted in ROS Statement are negative. Constitutional: Denies: fever Eyes: Denies: eye pain ENT: Denies: ear pain Respiratory: Denies: cough, dyspnea Cardiovascular: Denies: chest pain Endocrine: Denies: fatigue Gastrointestinal: Reports: as per HPI, abdominal pain, diarrhea. Denies: nausea, vomiting Genitourinary: Denies: dysuria Musculoskeletal: Denies: back pain Skin: Denies: rash Neurological: Denies: weakness Past Medical History Past Medical History: Asthma, Cancer, Hyperlipidemia, Hypertension, Osteoarthritis (OA), Sleep Apnea/CPAP/BIPAP Additional Past Medical History / Comment(s): cpap, fell in october 2013 and fractured left hip, periodontal infection that delayed hip surgery. 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 Past Surgical History: Cholecystectomy, Joint Replacement, Orthopedic Surgery Additional Past Surgical History / Comment(s): brain tumor removed as a teen, cami hip replacement Past Anesthesia/Blood Transfusion Reactions: No Reported Reaction Additional Past Anesthesia/Blood Transfusion Reaction / Comment(s): very severe sleep apnea per patient Past Psychological History: Anxiety, Depression Smoking Status: Former smoker Past Alcohol Use History: None Reported Past Drug Use History: None Reported - Past Family History Brother(s) Family Medical History: Cancer Additional Family Medical History / Comment(s): kidney,liver General Exam Limitations: altered mental status General appearance: alert Head exam: Present: normocephalic Eye exam: Present: normal appearance Neck exam: Present: normal inspection Respiratory exam: Present: rhonchi Cardiovascular Exam: Present: regular rate, normal rhythm Expanded Peripheral pulses: 2+: Posterior Tibialis (R), Posterior Tibialis (L) GI/Abdominal exam: Present: soft, tenderness (Minimal upper abdominal tenderness. Moderate to severe lower abdominal tenderness), normal bowel sounds. Absent: distended, guarding, rebound, rigid, pulsatile mass Extremities exam: Present: normal inspection Neurological exam: Present: alert Psychiatric exam: Present: normal affect, normal mood Skin exam: Present: normal color Course Vital Signs 02/05/22 02/05/22 02/05/22 15:17 16:22 17:18 Temperature 98.6 F Pulse Rate 73 85 81 Respiratory 14 12 14 Rate Blood Pressure 83/48 94/55 80/64 O2 Sat by Pulse 100 99 100 Oximetry 02/05/22 18:16 Temperature Pulse Rate 75 Respiratory 14 Rate Blood Pressure 97/53 O2 Sat by Pulse 100 Oximetry EKG Findings - EKG Comments: EKG Findings:: Sinus rhythm rate 75. For severe AV block AK 243. QRS 120. QT 414. QTC 443. Left axis. Right bundle branch block. No acute ST change. Medical Decision Making - Medical Decision Making Patient reevaluated and updated. Computed tomography scan was proceeded with contrast secondary to concern for surgical abdomen. Patient will benefit from additional IV fluids. Case was discussed with Dr. Nascimento who admit covering Dr. castro. - Lab Data Result diagrams: 02/05/22 15:54 02/05/22 18:13 Lab Results 02/05/22 02/05/22 02/05/22 Range/Units 15:54 15:54 15:59 WBC 10.3 (3.8-10.6) k/uL RBC 4.08 L (4.30-5.90) m/uL Hgb 12.8 L (13.0-17.5) gm/dL Hct 38.2 L (39.0-53.0) % MCV 93.7 (80.0-100.0) fL MCH 31.5 (25.0-35.0) pg MCHC 33.6 (31.0-37.0) g/dL RDW 16.0 H (11.5-15.5) % Plt Count 275 (150-450) k/uL MPV 7.4 Neutrophils % 85 % Lymphocytes % 9 % Monocytes % 4 % Eosinophils % 1 % Basophils % 0 % Neutrophils # 8.8 H (1.3-7.7) k/uL Lymphocytes # 1.0 (1.0-4.8) k/uL Monocytes # 0.4 (0-1.0) k/uL Eosinophils # 0.1 (0-0.7) k/uL Basophils # 0.0 (0-0.2) k/uL PT 10.9 (9.0-12.0) sec INR 1.0 (<1.2) APTT 25.7 (22.0-30.0) sec Sodium (137-145) mmol/L Potassium (3.5-5.1) mmol/L Chloride (98-107) mmol/L Carbon Dioxide (22-30) mmol/L Anion Gap mmol/L BUN (9-20) mg/dL Creatinine (0.66-1.25) mg/dL Est GFR (CKD-EPI)AfAm (>60 ml/min/1.73 sqM) Est GFR (CKD-EPI)NonAf (>60 ml/min/1.73 sqM) Glucose (74-99) mg/dL Calcium (8.4-10.2) mg/dL Total Bilirubin (0.2-1.3) mg/dL AST (17-59) U/L ALT (4-49) U/L Alkaline Phosphatase (38-126) U/L Total Protein (6.3-8.2) g/dL Albumin (3.5-5.0) g/dL Amylase (30-110) U/L Lipase (23-300) U/L Coronavirus (PCR) Not Detected (Not Detectd) 02/05/22 Range/Units 18:13 WBC (3.8-10.6) k/uL RBC (4.30-5.90) m/uL Hgb (13.0-17.5) gm/dL Hct (39.0-53.0) % MCV (80.0-100.0) fL MCH (25.0-35.0) pg MCHC (31.0-37.0) g/dL RDW (11.5-15.5) % Plt Count (150-450) k/uL MPV Neutrophils % % Lymphocytes % % Monocytes % % Eosinophils % % Basophils % % Neutrophils # (1.3-7.7) k/uL Lymphocytes # (1.0-4.8) k/uL Monocytes # (0-1.0) k/uL Eosinophils # (0-0.7) k/uL Basophils # (0-0.2) k/uL PT (9.0-12.0) sec INR (<1.2) APTT (22.0-30.0) sec Sodium 139 (137-145) mmol/L Potassium 4.7 (3.5-5.1) mmol/L Chloride 107 (98-107) mmol/L Carbon Dioxide 23 (22-30) mmol/L Anion Gap 9 mmol/L BUN 48 H (9-20) mg/dL Creatinine 1.92 H (0.66-1.25) mg/dL Est GFR (CKD-EPI)AfAm 36 (>60 ml/min/1.73 sqM) Est GFR (CKD-EPI)NonAf 32 (>60 ml/min/1.73 sqM) Glucose 115 H (74-99) mg/dL Calcium 7.8 L (8.4-10.2) mg/dL Total Bilirubin 0.5 (0.2-1.3) mg/dL AST 35 (17-59) U/L ALT 46 (4-49) U/L Alkaline Phosphatase 77 (38-126) U/L Total Protein 6.6 (6.3-8.2) g/dL Albumin 3.1 L (3.5-5.0) g/dL Amylase 104 (30-110) U/L Lipase 433 H (23-300) U/L Coronavirus (PCR) (Not Detectd) - Radiology Data Radiology results: report reviewed (Computed tomography scan of the abdomen and pelvis does show some atelectasis at lung bases. Decrease excretion of contrast on delayed images suspected some degree of renal failure.), image reviewed (Chest x-ray shows no acute process. Abdominal x-ray reveals no acute abnormality.) Disposition Clinical Impression: HARSHAD (acute kidney injury), Abdominal pain Disposition: ADMITTED IP TO THIS HOSP Is patient prescribed a controlled substance at d/c from ED?: No Referrals: Laurie Waite MD [Primary Care Provider] - 1-2 days Time of Disposition: 20:12
[2022-02-05 16:22] LABS: Basophils % (A) 0 %; Eosinophils # (A) 0.1 k/uL (0-0.7); Eosinophils % (A) 1 %; HCT 38.2 % (39.0-53.0); HGB 12.8 gm/dL (13.0-17.5); Lymphocytes % (A) 9 %; MCH 31.5 pg (25.0-35.0); MCHC 33.6 g/dL (31.0-37.0); MCV 93.7 fL (80.0-100.0); Mean Platelet Volume 7.4; Monocytes # (A) 0.4 k/uL (0-1.0); Monocytes % (A) 4 %; Neutrophils # (A) 8.8 k/uL (1.3-7.7); Neutrophils % (A) 85 %; Platelet Count 275 k/uL (150-450); RBC 4.08 m/uL (4.30-5.90); WBC 10.3 k/uL (3.8-10.6)
--- NOTE | 2022-02-05 16:50 | XR ---
EXAMINATION TYPE: XR chest 1V portable DATE OF EXAM: 02/05/2022 COMPARISON: 01/12/2022 HISTORY: Abdominal pain TECHNIQUE: Single view FINDINGS: Heart is normal. Lungs are clear of consolidation. There are no hilar masses. No heart fail ure. There are chest leads. Costophrenic angles are clear. IMPRESSION: No active cardiopulmonary disease. There is clearing of some airspace infiltrate left low er lobe compared to old exam.
[2022-02-05 16:52] LABS: Partial Thromboplastin Time 25.7 sec (22.0-30.0); Prothrombin Time 10.9 sec (9.0-12.0)
--- NOTE | 2022-02-05 16:52 | XR ---
EXAMINATION TYPE: XR KUB DATE OF EXAM: 02/05/2022 COMPARISON: 07/30/2012 HISTORY: Abdominal pain TECHNIQUE: 2 view supine FINDINGS: There is no sign of intestinal obstruction or pneumoperitoneum. Fecal pattern is normal. Th ere is right iliac stent noted. There is bilateral hip prosthesis. No pathologic calcifications over the kidneys. No evidence of a mass. There are clips from cholecystectomy. Lung bases are clear. IMPRESSION: Nonacute abdomen.
[2022-02-05] MEDS ORDERED: SODIUM CHLORIDE 0.9% 1,000 ML IV STA ×2 (17:51)
[2022-02-05 18:46] LABS: Albumin 3.1 g/dL (3.5-5.0); Calcium 7.8 mg/dL (8.4-10.2); Potassium 4.7 mmol/L (3.5-5.1); Total Bilirubin 0.5 mg/dL (0.2-1.3); Total Protein 6.6 g/dL (6.3-8.2)
--- NOTE | 2022-02-05 19:54 | CT ---
EXAMINATION TYPE: CT abdomen pelvis w con DATE OF EXAM: 02/05/2022 COMPARISON: 04/12/2019 HISTORY: lower abdominal pain CT DLP: 3236.4 mGycm Automated exposure control for dose reduction was used. CONTRAST: Performed with IV Contrast, patient injected with 80 mL of Isovue 300. There is some patchy atelectasis at the posterior lung bases. Heart is slightly enlarged. No pericard ial effusion. No pleural effusion. Liver and spleen are intact. The stomach is intact. There is no si gn of pancreatic mass. There are clips from cholecystectomy. The bile ducts are not dilated. There is no adrenal mass. Kidneys show satisfactory contrast opacification. There is no hydronephrosi s. The ureters are not dilated. Delayed images show very little contrast excretion in the renal colle cting systems. Abdominal aorta is atheromatous. There is stent in the right iliac vein. Bladder diste nds smoothly. There is no inguinal hernia. No free fluid in the pelvis. There is bilateral hip prosth esis. No evidence of a pelvic mass. No evidence of a bowel obstruction. There is no mesenteric edema. No ascites or free air. Appendix no t seen. No sign of thickened appendix. Terminal ileum appears intact. Lumbar vertebra appear intact. No compression fracture. Disc spaces are fairly normal for age. There is no evidence of pelvic fracture. Sacroiliac joints are intact. IMPRESSION: There is some patchy atelectasis at the lung bases that is increased compared to old exam. Decreased excretion of contrast on the delayed images of the kidneys. This is suggestive of some degr ee of renal failure and is a change compared to old exam.
[2022-02-05] MEDS ORDERED: NALOXONE 0.4 MG/ML 1 ML VIAL IV PRN (20:12)
[2022-02-05 21:09] LABS: Appearance,Urine Clear (Clear); Bacteria,Urine Rare /hpf; Bilirubin,Urine Negative (Negative); Blood,Urine Small (Negative); Color,Urine Light Yellow; Glucose,Urine (UA) Negative (Negative); Ketones,Urine Negative (Negative); Leukocyte Esterase,Urine Small (Negative); Mucus,Urine Rare /hpf; Nitrite,Urine Negative (Negative); Protein,Urine Negative (Negative); RBC,Urine 1 /hpf (0-5); Specific Gravity,Urine 1.018 (1.001-1.035); Squamous Epithelial Cell,Urine 2 /hpf (0-4); Urobilinogen,Urine <2.0 mg/dL (<2.0); WBC,Urine 4 /hpf (0-5)
[2022-02-05] MEDS: SODIUM CHLORIDE 0.9% 1,000 ML IV SCH (22:32)
[2022-02-06 07:33] LABS: Glucose,Whole Blood 95 mg/dL (75-99)
[2022-02-06] MEDS ORDERED: ACETAMINOPHEN TAB 325 MG TAB PO PRN (09:17)
[2022-02-06] MEDS: PANTOPRAZOLE 40 MG/10 ML VIAL IV SCH (09:41)
--- NOTE | 2022-02-06 11:02 | P.HPIM ---
History of Present Illness H&P Date: 02/06/22 Chief Complaint: Acute kidney injury abdominal pain This is a 82-year-old male patient of Dr. Waite who presented to the ER with complaints of abdominal discomfort. Onset of symptoms approximately 1 week. Patient currently resides at [facility] facility. Patient does have past medical history of ammonia, Covid, left hip fracture, cholecystectomy, anxiety and depression. Chest x-ray was completed showing no active cardiopulmonary disease there is clearing of some airspace infiltrate left lower lobe compared to old exam. KUB x-ray completed showing nonacute abdomen. CT of abdomen and pelvis completed showing some patchy atelectasis at the lung bases that is increased c ompared to old exam decreased excretion of contrast delayed image of kidneys is suggestive some renal failure. EKG completed showing sinus rhythm with first- degree AV block and right bundle branch block. COVID-19 negative. Creatinine 1.92 this does appear higher than patient's baseline. Bun 48. Amylase 104 lipase elevated at 433. Per nursing staff patient having low heart rate and blood pressure in the 80s and 90s. Patient apparently is asymptomatic. Telemetry ordered and cardiology consult placed repeat labs ordered. At this time patient denies chest pain or shortness of breath. Patient denies nausea vomiting or diarrhea. Patient denies any urinary burning or frequency Review of Systems Visit for HPI otherwise unremarkable Past Medical History Past Medical History: Asthma, Cancer, Hyperlipidemia, Hypertension, Osteoarthritis (OA), Sleep Apnea/CPAP/BIPAP Additional Past Medical History / Comment(s): cpap, fell in october 2013 and fractured left hip, periodontal infection that delayed hip surgery. blisters on cami legs wrapped-[facility] home care monitors History of Any Multi-Drug Resistant Organisms: None Reported Past Surgical History: Cholecystectomy, Joint Replacement, Orthopedic Surgery Additional Past Surgical History / Comment(s): brain tumor removed as a teen, cami hip replacement Past Anesthesia/Blood Transfusion Reactions: No Reported Reaction Additional Past Anesthesia/Blood Transfusion Reaction / Comment(s): very severe sleep apnea per patient Past Psychological History: Anxiety, Depression Additional Psychological History / Comment(s): Pt resides alone in an apartment. He has a couple of walkers but does not usually use them. He states he drives. Smoking Status: Former smoker Past Alcohol Use History: None Reported Additional Past Alcohol Use History / Comment(s): Pt started smoking cigars in 2 and quit smoking them in 1998 Past Drug Use History: None Reported - Past Family History Brother(s) Family Medical History: Cancer Additional Family Medical History / Comment(s): kidney,liver Medications and Allergies Home Medications Medication Instructions Recorded Confirmed Type PARoxetine HCL [Paxil] 40 mg PO DAILY 06/08/14 02/05/22 History Folic Acid 1 mg PO HS 07/12/21 02/05/22 History Tamsulosin [Flomax] 0.4 mg PO HS 07/12/21 02/05/22 History Torsemide [Demadex] 20 mg PO DAILY 07/12/21 02/05/22 History Atorvastatin [Lipitor] 40 mg PO HS 12/31/21 02/05/22 History Clopidogrel [Plavix] 75 mg PO HS 12/31/21 02/05/22 History Cholecalciferol [Vitamin D3 (125 125 mcg PO DAILY 14 Days #14 tablet 01/16/22 02/05/22 Rx Mcg = 5000 Iu)] Acetaminophen [Acetaminophen ER] 650 mg PO Q4H PRN 02/05/22 02/05/22 History Ammonium Lactate Cream [Lac-Hydrin 1 applic TOPICAL BID 02/05/22 02/05/22 History 12% Cream] Ascorbic Acid [Vitamin C] 250 mg PO DAILY 02/05/22 02/05/22 History Enoxaparin [Lovenox] 40 mg SQ HS 02/05/22 02/05/22 History Melatonin 3 mg PO HS 02/05/22 02/05/22 History Zinc Sulfate [Orazinc] 220 mg PO HS 02/05/22 02/05/22 History lisinopriL [Zestril] 5 mg PO DAILY 02/05/22 02/05/22 History metFORMIN HCL [Glucophage] 500 mg PO DAILY@1600 02/05/22 02/05/22 History Allergies Allergy/AdvReac Type Severity Reaction Status Date / Time Penicillins Allergy Rash/Hives Verified 02/05/22 15:59 Physical Exam Vitals: Vital Signs Temp Pulse Pulse Resp BP BP BP 02/06/22 09:19 18 02/06/22 08:12 42 L 18 02/06/22 07:36 85/44 91/53 02/06/22 07:31 97.8 F 42 L 17 78/44 76/42 02/06/22 03:00 97.5 F L 72 16 94/54 02/06/22 00:26 97.7 F 72 14 86/50 02/05/22 22:40 68 18 92/58 02/05/22 18:16 75 14 97/53 02/05/22 17:18 81 14 80/64 02/05/22 16:22 85 12 94/55 02/05/22 15:17 98.6 F 73 14 83/48 Pulse Ox 02/06/22 09:19 02/06/22 08:12 02/06/22 07:36 02/06/22 07:31 95 02/06/22 03:00 97 02/06/22 00:26 98 02/05/22 22:40 99 02/05/22 18:16 100 02/05/22 17:18 100 02/05/22 16:22 99 02/05/22 15:17 100 Intake and Output 02/05/22 02/06/22 02/06/22 22:59 06:59 14:59 Intake Total 118 Balance 118 Intake: Oral 118 Other: Voiding Method Toilet Toilet Diaper Diaper # Voids 1 # Bowel Movements 1 Weight 103.419 kg Head normocephalic Neck supple Lungs clear to auscultation bilaterally no wheezing or crackles Heart regular rate and rhythm S1-S2, no rub or gallop Abdomen is soft nontender nondistended positive bowel sounds no hepatosplenomegaly Extremities no edema Neuro alert and orientated to 3 Results CBC & Chem 7: 02/05/22 15:54 02/05/22 18:13 Labs: Abnormal Lab Results - Last 24 Hours (Table) 02/05/22 02/05/22 02/05/22 Range/Units 15:54 18:13 20:45 RBC 4.08 L (4.30-5.90) m/uL Hgb 12.8 L (13.0-17.5) gm/dL Hct 38.2 L (39.0-53.0) % RDW 16.0 H (11.5-15.5) % Neutrophils # 8.8 H (1.3-7.7) k/uL BUN 48 H (9-20) mg/dL Creatinine 1.92 H (0.66-1.25) mg/dL Glucose 115 H (74-99) mg/dL Calcium 7.8 L (8.4-10.2) mg/dL Albumin 3.1 L (3.5-5.0) g/dL Lipase 433 H (23-300) U/L Urine Blood Small H (Negative) Ur Leukocyte Esterase Small H (Negative) Urine Bacteria Rare H (None) /hpf Urine Mucus Rare H (None) /hpf Thrombosis Risk Factor Assmnt - Choose All That Apply Any of the Below Risk Factors Present?: Yes Each Factor Represents 1 point: Abnormal pulmonary function (COPD), Obesity (BMI >25) Other Risk Factors: Yes Each Risk Factor Represents 3 Points: Age 75 years or older Other congenital or acquired thrombophilia - If yes, enter type in comment: No Thrombosis Risk Factor Assessment Total Risk Factor Score: 5 Thrombosis Risk Factor Assessment Level: High Risk Assessment and Plan Assessment: 1. Abdominal pain. KUB x-ray negative CT of abdomen negative. 2. Acute kidney injury. Repeat labs have been ordered 3. Bradycardia. EKG showing first-degree AV block. Cardiology consult placed telemetry ordered 4. Recent treatment for COVID-19 pneumonia 5. History of asthma 6. History of hyperlipidemia 7. History of essential hypertension DVT prophylaxis lovenox. GI prophylaxis Protonix Cardiology consult placed Telemetry ordered Repeat labs ordered Time with Patient: Greater than 30 (Greater than 60% of the total time spent in counseling and coordination of care)
[2022-02-06 11:29] LABS: Glucose,Whole Blood 136 mg/dL (75-99)
[2022-02-06 11:51] LABS: Magnesium 1.9 mg/dL (1.6-2.3)
[2022-02-06 12:11] LABS: Basophils # (A) 0.03 X 10*3/uL (0.00-0.10); Basophils % (A) 0.3 %; Eosinophils # (A) 0.21 X 10*3/uL (0.04-0.35); Eosinophils % (A) 2.3 %; HCT 33.3 % (39.6-50.0); HGB 10.2 g/dL (13.0-17.0); Immature Grans, Automated 0.5 %; Lymphocytes # (A) 2.36 X 10*3/uL (0.90-5.00); Lymphocytes % (A) 25.9 %; MCH 29.5 pg (27.0-32.0); MCHC 30.6 g/dL (32.0-37.0); MCV 96.2 fL (80.0-97.0); Mean Platelet Volume 9.7 fL (9.5-12.2); Monocytes # (A) 0.48 X 10*3/uL (0.20-1.00); Monocytes % (A) 5.3 %; NRBC Per 100 WBC 0 /100 WBCS (0.0-0.0); Neutrophils # (A) 5.99 X 10*3/uL (1.80-7.70); Neutrophils % (A) 65.7 %; Platelet Count 172 X 10*3/uL (140-440); RBC 3.46 X 10*6/uL (4.40-5.60); RDW 16.4 % (11.5-14.5); WBC 9.12 X 10*3/uL (4.50-10.00)
[2022-02-06 12:15] LABS: African American GFR (CKD) 45.5 (60.0-200.0); Albumin 2.9 g/dL (3.8-4.9); Albumin/Globulin Ratio 0.94 (1.60-3.17); Anion Gap 12.2 mmol/L (10.00-18.00); BUN/Creat Ratio 23.06 Ratio (12.00-20.00); Blood Urea Nitrogen 36.9 mg/dL (9.0-27.0); Calcium 7.8 mg/dL (8.7-10.3); Carbon Dioxide 16.8 mmol/L (20.0-27.5); Globulin 3.1 g/dL (1.6-3.3); Non-African American GFR(CKD) 39.3 (60.0-200.0); Potassium 4.9 mmol/L (3.5-5.5); Total Bilirubin 0.3 mg/dL (0.30-1.20)
[2022-02-06 12:20] LABS: Amylase 76 U/L (30-110); Lipase 284 U/L (23-300)
[2022-02-06] MEDS: INSULIN ASPART (NovoLOG) 100 UNIT/ML VIAL SQ SCH ×3 (12:30→21:10)
[2022-02-06] MEDS ORDERED: LEVOFLOXACIN 500MG-D5W PMX 500 MG in DEXTROSE/WATER 1 100ML.BAG IVPB SCH (13:00)
--- NOTE | 2022-02-06 13:36 | P.CRDCN ---
History of Present Illness History of present illness: This is a pleasant 82-year-old male past medical history significant for hypertension, dyslipidemia, type 2 diabetes, chronic heart failure with preserved ejection fraction, right bundle branch block, peripheral vascular disease status post stenting to the right common iliac vein on 07/2021, Recent covid-19 pneumonia in 01/11/2022. He follows in the office with Dr. Ann. We have been asked to see in consultation for hypotension and bradycardia. Patient presents emergency department with complaints of abdominal discomfort. It is located in the lower abdomen bilaterally. It is non-radiating. He does endorse decreased appetite. He denies nausea, vomiting, constipation, diarrhea. Sym ptoms occurred about one week ago and have progressively worsened. He describes it as aching. He denies any lightheadedness, dizziness, syncope, or near syncope. No chest pain or shortness of breath. Today, it was noted when taking the patient's BP that his heart rates were noted in the 40s on the BP cuff/pulse ox machine. Patient was not on telemetry, patient's heart rate was not counted manually. Cardiology was consulted. Patient was then placed on cardiac telemetry and heart rates have been in the 70s-80s in sinus. No bradycardia noted. DIAGNOSTICS -EKG reveals sinus rhythm, heart rate 75, first degree AV block, right bundle branch block morphology, left axis deviation, no acute STT wave abnormalities suggestive acute ischemia. Prior EKG with similar findings. -Chest x-ray revealed clearing of infiltrates in the left lower lobe compared to old exam -CT of abdomen and pelvis revealed some patchy atelectasis left lung base. Decreased excretion of contrast delivered images of the kidneys, suggestive of some degree of renal failure and is a change from old exam. No evidence of mesenteric edema. No ascites or free air. -Labs revealed, sodium 139, potassium 4.7, BUN 48, serum creatinine 1.92, magnesium 1.9, WBC 10.3, hemoglobin 10.8, platelets 275, Covid 19 negative -Last Cardiac Catheterization 2016 with normal coronary arteries -Lexiscan stress test in the office 02/2021 revealed no reversible ischemia -Echocardiogram 02/2021 revealed an EF of 50%, mild LVH, RVSP 30 mmHg, no significant wall motion abnormalities -Current home medications include lisinopril 10 mg daily, torsemide 20 mg daily, Plavix 75 mg daily, atorvastatin 40 mg daily REVIEW OF SYSTEMS At the time of my exam: CONSTITUTIONAL: Denies fever or chills CARDIOVASCULAR: Denies chest pain, shortness of breath, orthopnea, PND or palpitations. RESPIRATORY: Denies cough GASTROINTESTINAL: + abdominal pain, Denies diarrhea, constipation, nausea or vomiting. MUSCULOSKELETAL: Denies myalgias. NEUROLOGIC: Denies numbness, tingling, headache or weakness. ENDOCRINE: Denies fatigue, weight change, polydipsia or polyurina. GENITOURINARY: Denies burning, hematuria or urgency with micturation. HEMATOLOGIC: Denies history of anemia or bleeding. PHYSICAL EXAMINATION Blood pressure 91/53, heart rate 72, afebrile, saturations 95% on 3 L nasal cannula CONSTITUTIONAL: No apparent distress. HEENT: Head is normocephalic. Pupils are equal, round. Sclerae anicteric. Mucous membranes of the mouth are moist. No JVD. No carotid bruit. CHEST EXAMINATION: Lungs are diminished bases bilaterally to auscultation. No chest wall tenderness is noted on palpation or with deep breathing. HEART EXAMINATION: Regular rate and rhythm. S1, S2 heard. No murmurs, gallops or rub. ABDOMEN: Soft, Tender to palpation in lower abdomen. Positive bowel sounds. EXTREMITIES: no lower extremity edema and no calf tenderness. SKIN: Warm, dry NEUROLOGIC EXAMINATION: Patient is awake, alert and oriented x3. ASSESSMENT Hypotension Acute kidney injury Abdominal pain and decreased appetite History of hypertension Dyslipidemia Type 2 diabetes Peripheral vascular disease status post stenting to the right common iliac vein on 07/2021 PLAN No accurate documentation of bradycardia. Patient's HR documented in the 40s, per nursing this was from the BP machine, which is not as accurate. Patient was placed on telemetry, no evidence of bradycardia HR is in 70s-80s. We will monitor on telemetry for additional 24 hours. Hold Lisinopril and Torsemide due to hypotension and acute kidney injury Obtain 2D echocardiogram Agree with IV fluids Continue home aspirin, statin, plavix Monitor renal function and electrolytes Rest of management per primary Further recommendations based on clinical course Thank you kindly for this consultation. Nurse practitioner note has been reviewed by physician. Signing provider agrees with the documented findings, assessment, and plan of care. Past Medical History Past Medical History: Asthma, Cancer, Hyperlipidemia, Hypertension, Osteoart hritis (OA), Sleep Apnea/CPAP/BIPAP Additional Past Medical History / Comment(s): cpap, fell in october 2013 and fractured left hip, periodontal infection that delayed hip surgery. 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 Past Surgical History: Cholecystectomy, Joint Replacement, Orthopedic Surgery Additional Past Surgical History / Comment(s): brain tumor removed as a teen, cami hip replacement Past Anesthesia/Blood Transfusion Reactions: No Reported Reaction Additional Past Anesthesia/Blood Transfusion Reaction / Comment(s): very severe sleep apnea per patient Past Psychological History: Anxiety, Depression Additional Psychological History / Comment(s): Pt resides alone in an apartment. He has a couple of walkers but does not usually use them. He states he drives. Smoking Status: Former smoker Past Alcohol Use History: None Reported Additional Past Alcohol Use History / Comment(s): Pt started smoking cigars in 1952 and quit smoking them in 1998 Past Drug Use History: None Reported - Past Family History Brother(s) Family Medical History: Cancer Additional Family Medical History / Comment(s): kidney,liver Medications and Allergies Home Medications Medication Instructions Recorded Confirmed Type PARoxetine HCL [Paxil] 40 mg PO DAILY 06/08/14 02/05/22 History Folic Acid 1 mg PO HS 07/12/21 02/05/22 History Tamsulosin [Flomax] 0.4 mg PO HS 07/12/21 02/05/22 History Torsemide [Demadex] 20 mg PO DAILY 07/12/21 02/05/22 History Atorvastatin [Lipitor] 40 mg PO HS 12/31/21 02/05/22 History Clopidogrel [Plavix] 75 mg PO HS 12/31/21 02/05/22 History Cholecalciferol [Vitamin D3 (125 125 mcg PO DAILY 14 Days #14 tablet 01/16/22 02/05/22 Rx Mcg = 5000 Iu)] Acetaminophen [Acetaminophen ER] 650 mg PO Q4H PRN 02/05/22 02/05/22 History Ammonium Lactate Cream [Lac-Hydrin 1 applic TOPICAL BID 02/05/22 02/05/22 History 12% Cream] Ascorbic Acid [Vitamin C] 250 mg PO DAILY 02/05/22 02/05/22 History Enoxaparin [Lovenox] 40 mg SQ HS 02/05/22 02/05/22 History Melatonin 3 mg PO HS 02/05/22 02/05/22 History Zinc Sulfate [Orazinc] 220 mg PO HS 02/05/22 02/05/22 History lisinopriL [Zestril] 5 mg PO DAILY 02/05/22 02/05/22 History metFORMIN HCL [Glucophage] 500 mg PO DAILY@1600 02/05/22 02/05/22 History Allergies Allergy/AdvReac Type Severity Reaction Status Date / Time Penicillins Allergy Rash/Hives Verified 02/05/22 15:59 Physical Exam Vitals: Vital Signs Temp Pulse Pulse Resp BP BP BP 02/06/22 09:19 18 02/06/22 08:12 42 L 18 02/06/22 07:36 85/44 91/53 02/06/22 07:31 97.8 F 42 L 17 78/44 76/42 02/06/22 03:00 97.5 F L 72 16 94/54 02/06/22 00:26 97.7 F 72 14 86/50 02/05/22 22:40 68 18 92/58 02/05/22 18:16 75 14 97/53 02/05/22 17:18 81 14 80/64 02/05/22 16:22 85 12 94/55 02/05/22 15:17 98.6 F 73 14 83/48 Pulse Ox 02/06/22 09:19 02/06/22 08:12 02/06/22 07:36 02/06/22 07:31 95 02/06/22 03:00 97 02/06/22 00:26 98 02/05/22 22:40 99 02/05/22 18:16 100 02/05/22 17:18 100 02/05/22 16:22 99 02/05/22 15:17 100 Intake and Output 02/05/22 02/06/22 02/06/22 22:59 06:59 14:59 Intake Total 118 Balance 118 Intake: Oral 118 Other: Voiding Method Toilet Toilet Diaper Diaper # Voids 1 # Bowel Movements 1 Weight 103.419 kg Results 02/06/22 06:51 02/06/22 06:51 Cardiac Enzymes 02/05/22 Range/Units 18:13 AST 35 (17-59) U/L Coagulation 02/05/22 Range/Units 15:54 PT 10.9 (9.0-12.0) sec APTT 25.7 (22.0-30.0) sec CBC 02/05/22 Range/Units 15:54 WBC 10.3 (3.8-10.6) k/uL RBC 4.08 L (4.30-5.90) m/uL Hgb 12.8 L (13.0-17.5) gm/dL Hct 38.2 L (39.0-53.0) % Plt Count 275 (150-450) k/uL Comprehensive Metabolic Panel 02/05/22 Range/Units 18:13 Sodium 139 (137-145) mmol/L Potassium 4.7 (3.5-5.1) mmol/L Chloride 107 (98-107) mmol/L Carbon Dioxide 23 (22-30) mmol/L BUN 48 H (9-20) mg/dL Creatinine 1.92 H (0.66-1.25) mg/dL Glucose 115 H (74-99) mg/dL Calcium 7.8 L (8.4-10.2) mg/dL AST 35 (17-59) U/L ALT 46 (4-49) U/L Alkaline Phosphatase 77 (38-126) U/L Total Protein 6.6 (6.3-8.2) g/dL Albumin 3.1 L (3.5-5.0) g/dL Current Medications Generic Name Dose Route Start Last Admin Trade Name Freq PRN Reason Stop Dose Admin Acetaminophen 650 mg 02/06/22 09:17 Acetaminophen Tab 325 Mg Tab PO Q4H PRN Pain Ascorbic Acid 500 mg 02/07/22 09:00 Ascorbic Acid 500 Mg Tab PO DAILY ESTEFANY Atorvastatin Calcium 40 mg 02/06/22 21:00 Atorvastatin 40 Mg Tab PO HS ESTEFANY Cholecalciferol 125 mcg 02/07/22 09:00 Cholecalciferol 125 Mcg (5000 Iu) Tablet PO DAILY ESTEFANY Clopidogrel Bisulfate 75 mg 02/06/22 21:00 Clopidogrel 75 Mg Tab PO HS ESTEFANY Enoxaparin Sodium 40 mg 02/06/22 21:00 Enoxaparin 40 Mg/0.4 Ml Syringe SQ HS ESTEFANY Folic Acid 1 mg 02/06/22 21:00 Folic Acid 1 Mg Tab PO HS ESTEFANY Sodium Chloride 1,000 mls @ 75 mls/hr 02/05/22 20:15 02/05/22 22:32 Saline 0.9% IV 75 mls/hr .[id number] ESTEFANY Administration Insulin Aspart 0 unit 02/06/22 12:30 Insulin Aspart (Novolog) 100 Unit/Ml Vial SQ ACHS [facility] Protocol Lactic Acid 1 applic 02/06/22 21:00 Ammonium Lactate 12% Cream 140 Gm Tube TOPICAL BID [facility] Protocol Melatonin 3 mg 02/06/22 21:00 Melatonin 3 Mg Tablet PO HS ESTEFANY Naloxone HCl 0.2 mg 02/05/22 20:12 Naloxone 0.4 Mg/Ml 1 Ml Vial IV Q2M PRN Opioid Reversal Pantoprazole Sodium 40 mg 02/06/22 09:00 02/06/22 09:41 Pantoprazole 40 Mg/10 Ml Vial IV 40 mg DAILY ESTEFANY Administration Paroxetine HCl 40 mg 02/07/22 09:00 Paroxetine 20 Mg Tab PO DAILY ESTEFANY Tamsulosin HCl 0.4 mg 02/06/22 21:00 Tamsulosin 0.4 Mg Cap.Er.24h PO HS ESTEFANY Zinc Sulfate 220 mg 02/06/22 21:00 Zinc Sulfate 220 Mg Cap PO HS ESTEFANY Intake and Output 02/05/22 02/06/22 02/06/22 22:59 06:59 14:59 Intake Total 118 Balance 118 Intake: Oral 118 Other: Voiding Method Toilet Toilet Diaper Diaper # Voids 1 # Bowel Movements 1 Weight 103.419 kg 02/05/22 15:54 02/05/22 18:13
--- NOTE | 2022-02-06 14:44 | P.GSCN ---
History of Present Illness Consult date: 02/06/22 History of present illness: CHIEF COMPLAINT: Abdominal pain HISTORY OF PRESENT ILLNESS: This is a 82-year-old male who is currently at [facility] for rehab. He reports that he has been having lower abdominal pain with diarrhea for about 2 weeks. He reports that he is having multiple stools. He thinks there may have been a small amount of blood in his stool about 2 days ago. Otherwise the diarrhea has resolved and he had no diarrhea for 2 days. He denies any nausea or vomiting. He is tolerating diet. He reports that the pain is less than on admission. Patient denies any fever chills or sweats. He did have evidence of acute kidney injury on admission. He has received fluids. Also followed by cardiology regarding possible bradycardia and hypotension. Patient's blood pressure pills lisinopril and his diuretic currently on hold. He is receiving IV fluids. Also note the patient takes Plavix daily for stents in his lower extremity for peripheral vascular disease. Patient recently hospitalized earlier in January for COVID pneumonia. Appears that he did have some diarrhea and acute kidney injury at the time too. Covid is negative. Past surgical history includes cholecystectomy. Patient reports that he thinks he had colonoscopy about 5 years ago that was negative. PAST MEDICAL HISTORY: See list. PAST SURGICAL HISTORY: See list. MEDICATIONS: See list. ALLERGIES: See list. SOCIAL HISTORY: No illicit drug use. REVIEW OF SYSTEMS: CONSTITUTIONAL: Denies fever or chills. HEENT: Denies blurred vision, vision changes, or eye pain. Denies hemoptysis CARDIOVASCULAR: Denies chest pain or pressure. RESPIRATORY: No shortness of breath. GASTROINTESTINAL: See HPI for pertinent findings HEMATOLOGIC: Denies bleeding disorders. GENITOURINARY: Denies any blood in urine or increased urinary frequency. SKIN: Denies pruitis. Denies rash. PHYSICAL EXAM: VITAL SIGNS: Reviewed GENERAL: Well-developed in no acute distress. HEENT: No sclera icterus. Extraocular movements grossly intact. Moist buccal mucosa. Head is atraumatic, normocephalic. No nasal drainage. ABDOMEN: Soft. Obese. Nondistended. Tenderness with palpation of the left lower quadrant and right lower quadrant abdomen NEUROLOGIC: Alert and oriented. Cranial nerves II through XII grossly intact. LABORATORY DATA: WBC 9.12 hemoglobin 10.2 platelets 172 Sodium 139 potassium 4.9 creatinine 1.6 Magnesium 1.9 LFTs normal Lipase 433 down to 284 COVID-19 not detected IMAGING: Computed tomography scan abdomen and pelvis some patchy atelectasis at lung bases there is increased compared to old exam. Decreased excretion of contrast on the delayed images of the kidneys. This is suggestive of some degree of renal failure and is a change compared to old exam. No evidence of bowel checks them. No sign of thickened appendix. Terminal ileum appears intact ASSESSMENT: 1. Bilateral lower quadrant abdominal pain with diarrhea 2. Acute kidney injury 3. Hypotension 4. Recent Covid pneumonia PLAN: -Further recommendations forthcoming per surgeon -Continue supportive care -Continue with IV fluids -follow up on lactic acid level Thank you for this consultation Physician Recreational Leader note has been reviewed by physician. Signing provider agrees with the documented findings, assessment, and plan of care. I have personally seen and examined the patient, reviewed the ANIMAL ECOLOGIST /PAs history, exam and MDM and agree with the assessment and plan as written. Based on total visit time, I have performed more than 50% of the visit. As above: Please see dictation from 02/07 Past Medical History Past Medical History: Asthma, Cancer, Hyperlipidemia, Hypertension, Osteoarthritis (OA), Sleep Apnea/CPAP/BIPAP Additional Past Medical History / Comment(s): cpap, fell in october 2013 and fractured left hip, periodontal infection that delayed hip surgery. 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 Past Surgical History: Cholecystectomy, Joint Replacement, Orthopedic Surgery Additional Past Surgical History / Comment(s): brain tumor removed as a teen, cami hip replacement Past Anesthesia/Blood Transfusion Reactions: No Reported Reaction Additional Past Anesthesia/Blood Transfusion Reaction / Comm: very severe sleep apnea per patient Past Psychological History: Anxiety, Depression Additional Psychological History / Comment(s): Pt resides alone in an apartment. He has a couple of walkers but does not usually use them. He states he drives. Smoking Status: Former smoker Past Alcohol Use History: None Reported Additional Past Alcohol Use History / Comment(s): Pt started smoking cigars in 2 and quit smoking them in 1998 Past Drug Use History: None Reported - Past Family History Brother(s) Family Medical History: Cancer Additional Family Medical History / Comment(s): kidney,liver Medications and Allergies Home Medications Medication Instructions Recorded Confirmed Type PARoxetine HCL [Paxil] 40 mg PO DAILY 06/08/14 02/05/22 History Folic Acid 1 mg PO HS 07/12/21 02/05/22 History Tamsulosin [Flomax] 0.4 mg PO HS 07/12/21 02/05/22 History Torsemide [Demadex] 20 mg PO DAILY 07/12/21 02/05/22 History Atorvastatin [Lipitor] 40 mg PO HS 12/31/21 02/05/22 History Clopidogrel [Plavix] 75 mg PO HS 12/31/21 02/05/22 History Cholecalciferol [Vitamin D3 (125 125 mcg PO DAILY 14 Days #14 tablet 01/16/22 02/05/22 Rx Mcg = 5000 Iu)] Acetaminophen [Acetaminophen ER] 650 mg PO Q4H PRN 02/05/22 02/05/22 History Ammonium Lactate Cream [Lac-Hydrin 1 applic TOPICAL BID 02/05/22 02/05/22 Hi story 12% Cream] Ascorbic Acid [Vitamin C] 250 mg PO DAILY 02/05/22 02/05/22 History Enoxaparin [Lovenox] 40 mg SQ HS 02/05/22 02/05/22 History Melatonin 3 mg PO HS 02/05/22 02/05/22 History Zinc Sulfate [Orazinc] 220 mg PO HS 02/05/22 02/05/22 History lisinopriL [Zestril] 5 mg PO DAILY 02/05/22 02/05/22 History metFORMIN HCL [Glucophage] 500 mg PO DAILY@1600 02/05/22 02/05/22 History Allergies Allergy/AdvReac Type Severity Reaction Status Date / Time Penicillins Allergy Rash/Hives Verified 02/05/22 15:59 Surgical - Exam Vital Signs Temp Pulse Resp BP Pulse Ox 98.6 F 73 14 83/48 100 02/05/22 15:17 02/05/22 15:17 02/05/22 15:17 02/05/22 15:17 02/05/22 15:17 Results - Labs 02/07/22 06:20 02/07/22 06:20 Abnormal Lab Results - Last 24 Hours (Table) 02/05/22 02/05/22 02/05/22 Range/Units 15:54 18:13 20:45 RBC 4.08 L (4.30-5.90) m/uL Hgb 12.8 L (13.0-17.5) gm/dL Hct 38.2 L (39.0-53.0) % MCHC (32.0-37.0) g/dL RDW 16.0 H (11.5-15.5) % Immature Gran # (0.00-0.04) X 10*3/uL Neutrophils # 8.8 H (1.3-7.7) k/uL Chloride (96-109) mmol/L Carbon Dioxide (20.0-27.5) mmol/L BUN 48 H (9-20) mg/dL Creatinine 1.92 H (0.66-1.25) mg/dL Est GFR (CKD-EPI)AfAm (60.0-200.0) Est GFR (CKD-EPI)NonAf (60.0-200.0) BUN/Creatinine Ratio (12.00-20.00) Ratio Glucose 115 H (74-99) mg/dL POC Glucose (mg/dL) (75-99) mg/dL Calcium 7.8 L (8.4-10.2) mg/dL Total Protein (6.2-8.2) g/dL Albumin 3.1 L (3.5-5.0) g/dL Albumin/Globulin Ratio (1.60-3.17) g/dL Lipase 433 H (23-300) U/L Urine Blood Small H (Negative) Ur Leukocyte Esterase Small H (Negative) Urine Bacteria Rare H (None) /hpf Urine Mucus Rare H (None) /hpf 02/06/22 02/06/22 02/06/22 Range/Units 06:51 06:51 11:27 RBC 3.46 L (4.30-5.90) m/uL Hgb 10.2 L (13.0-17.5) gm/dL Hct 33.3 L (39.0-53.0) % MCHC 30.6 L (32.0-37.0) g/dL RDW 16.4 H (11.5-15.5) % Immature Gran # 0.05 H (0.00-0.04) X 10*3/uL Neutrophils # (1.3-7.7) k/uL Chloride 110 H (96-109) mmol/L Carbon Dioxide 16.8 L (20.0-27.5) mmol/L BUN 36.9 H (9-20) mg/dL Creatinine 1.6 H (0.66-1.25) mg/dL Est GFR (CKD-EPI)AfAm 45.5 L (60.0-200.0) Est GFR (CKD-EPI)NonAf 39.3 L (60.0-200.0) BUN/Creatinine Ratio 23.06 H (12.00-20.00) Ratio Glucose (74-99) mg/dL POC Glucose (mg/dL) 136 H (75-99) mg/dL Calcium 7.8 L (8.4-10.2) mg/dL Total Protein 6.0 L (6.2-8.2) g/dL Albumin 2.9 L (3.5-5.0) g/dL Albumin/Globulin Ratio 0.94 L (1.60-3.17) g/dL Lipase (23-300) U/L Urine Blood (Negative) Ur Leukocyte Esterase (Negative) Urine Bacteria (None) /hpf Urine Mucus (None) /hpf Diabetes panel 02/05/22 02/06/22 Range/Units 18:13 06:51 Sodium 139 139 (137-145) mmol/L Potassium 4.7 4.9 (3.5-5.1) mmol/L Chloride 107 110 H (98-107) mmol/L Carbon Dioxide 23 16.8 L (22-30) mmol/L BUN 48 H 36.9 H (9-20) mg/dL Creatinine 1.92 H 1.6 H (0.66-1.25) mg/dL Glucose 115 H 87 (74-99) mg/dL Calcium 7.8 L 7.8 L (8.4-10.2) mg/dL AST 35 29 (17-59) U/L ALT 46 41 (4-49) U/L Alkaline Phosphatase 77 70 (38-126) U/L Total Protein 6.6 6.0 L (6.3-8.2) g/dL Albumin 3.1 L 2.9 L (3.5-5.0) g/dL Thyroid panel 02/06/22 Range/Units 11:06 TSH 1.560 (0.465-4.680) mIU/L Calcium panel 02/05/22 02/06/22 Range/Units 18:13 06:51 Calcium 7.8 L 7.8 L (8.4-10.2) mg/dL Albumin 3.1 L 2.9 L (3.5-5.0) g/dL Pituitary panel 02/05/22 02/06/22 02/06/22 Range/Units 18:13 06:51 11:06 Sodium 139 139 (137-145) mmol/L Potassium 4.7 4.9 (3.5-5.1) mmol/L Chloride 107 110 H (98-107) mmol/L Carbon Dioxide 23 16.8 L (22-30) mmol/L BUN 48 H 36.9 H (9-20) mg/dL Creatinine 1.92 H 1.6 H (0.66-1.25) mg/dL Glucose 115 H 87 (74-99) mg/dL Calcium 7.8 L 7.8 L (8.4-10.2) mg/dL TSH 1.560 (0.465-4.680) mIU/L Adrenal panel 02/05/22 02/06/22 Range/Units 18:13 06:51 Sodium 139 139 (137-145) mmol/L Potassium 4.7 4.9 (3.5-5.1) mmol/L Chloride 107 110 H (98-107) mmol/L Carbon Dioxide 23 16.8 L (22-30) mmol/L BUN 48 H 36.9 H (9-20) mg/dL Creatinine 1.92 H 1.6 H (0.66-1.25) mg/dL Glucose 115 H 87 (74-99) mg/dL Calcium 7.8 L 7.8 L (8.4-10.2) mg/dL Total Bilirubin 0.5 0.30 (0.2-1.3) mg/dL AST 35 29 (17-59) U/L ALT 46 41 (4-49) U/L Alkaline Phosphatase 77 70 (38-126) U/L Total Protein 6.6 6.0 L (6.3-8.2) g/dL Albumin 3.1 L 2.9 L (3.5-5.0) g/dL
[2022-02-06] MEDS: SODIUM CHLORIDE 0.9% 1,000 ML IV SCH (16:51)
[2022-02-06 17:01] LABS: Glucose,Whole Blood 113 mg/dL (75-99)
[2022-02-06 20:50] LABS: Glucose,Whole Blood 110 mg/dL (75-99)
[2022-02-06] MEDS: MELATONIN 3 MG TABLET PO SCH (21:09)
[2022-02-06] MEDS: ATORVASTATIN 40 MG TAB PO SCH (21:09)
[2022-02-06] MEDS: CLOPIDOGREL 75 MG TAB PO SCH (21:09)
[2022-02-06] MEDS: ENOXAPARIN 40 MG/0.4 ML SYRINGE SQ SCH (21:09)
[2022-02-06] MEDS: FOLIC ACID 1 MG TAB PO SCH (21:10)
[2022-02-06] MEDS: ZINC SULFATE 220 MG CAP PO SCH (21:10)
[2022-02-06] MEDS: TAMSULOSIN 0.4 MG CAP.ER.24H PO SCH (21:10)
[2022-02-06] MEDS: AMMONIUM LACTATE 12% CREAM 140 GM TUBE TOPICAL SCH (21:15)
[2022-02-07] MEDS: SODIUM CHLORIDE 0.9% 1,000 ML IV SCH ×2 (05:18→19:41)
[2022-02-07 06:52] LABS: Glucose,Whole Blood 117 mg/dL (75-99)
--- NOTE | 2022-02-07 06:56 | CA ---
Transthoracic Echo Report Name: Sabine Delgado Age: 82 Gender: M : 1940 Exam Date: 02/06/2022 15:20 Exam Location: [facility] Ht (in): 70 Wt (lb): 228 Ordering Physician: Stacia Mayes Attending/Referring Phys: Sharepoint Application Architect Rizwana Sepulveda, ANDERS Procedure CPT: Indications: LV function Cardiac Hx: Technical Quality: Fair Contrast 1: Total Dose (mL): Contrast 2: Total Dose (mL): MEASUREMENTS (Male / Female) Normal Values 2D ECHO LV Diastolic Diameter PLAX 4.3 cm 4.2 - 5.9 / 3.9 - 5.3 cm LV Systolic Diameter PLAX 3.5 cm IVS Diastolic Thickness 1.4 cm 0.6 - 1.0 / 0.6 - 0.9 cm LVPW Diastolic Thickness 1.2 cm 0.6 - 1.0 / 0.6 - 0.9 cm LV Relative Wall Thickness 0.6 RV Internal Dim ED PLAX 3.8 cm LA Systolic Diameter LX 3.7 cm 3.0 - 4.0 / 2.7 - 3.8 cm M-MODE Aortic Root Diameter MM 3.3 cm MV E Point Septal Separation 0.8 cm AV Cusp Separation MM 1.8 cm DOPPLER AV Peak Velocity 153.0 cm/s AV Peak Gradient 9.4 mmHg MV Area PHT 2.6 cm Mitral E Point Velocity 99.8 cm/s Mitral A Point Velocity 100.3 cm/s Mitral E to A Ratio 1.0 MV Deceleration Time 293.6 ms MV E' Velocity 6.5 cm/s Mitral E to MV E' Ratio 15.3 TR Peak Velocity 243.1 cm/s TR Peak Gradient 23.6 mmHg Right Ventricular Systolic Press 28.3 mmHg FINDINGS Left Ventricle Left ventricular ejection fraction is estimated at 55-60 %. Normal left ventricular systolic function with no obvious regional wall motion abnormalities. Left ventricular cavity size normal. Moderate concentric left ventricular hypertrophy. Right Ventricle Moderate right ventricular dilatation. Right Atrium Normal right atrial size. Left Atrium Normal left atrial size. Mitral Valve Mitral annular calcification. Aortic Valve No aortic valve stenosis or regurgitation. Aortic valve sclerosis. Tricuspid Valve Mild tricuspid regurgitation. Pulmonic Valve Mild pulmonic regurgitation. Pericardium Anterior echo-free space noted. Cannot exclude a small pericardial effusion or a fat pad Aorta Normal size aortic root and proximal ascending aorta. CONCLUSIONS Normal LV size and systolic function with moderate concentric LVH. Enlarged right ventricle. Mild mitral and tricuspid insufficiency. Previewed by: Dr. Thiago Cma MD (Electronically Signed) Final Date: 07 February 2022 06:51
[2022-02-07] MEDS: INSULIN ASPART (NovoLOG) 100 UNIT/ML VIAL SQ SCH ×4 (09:06→21:28)
[2022-02-07] MEDS: PARoxetine 20 MG TAB PO SCH (09:22)
[2022-02-07] MEDS: CHOLECALCIFEROL 125 MCG (5000 IU) TABLET PO SCH (09:22)
[2022-02-07] MEDS: PANTOPRAZOLE 40 MG/10 ML VIAL IV SCH (09:22)
[2022-02-07] MEDS: ASCORBIC ACID 500 MG TAB PO SCH (09:22)
[2022-02-07] MEDS: AMMONIUM LACTATE 12% CREAM 140 GM TUBE TOPICAL SCH ×2 (09:22→19:41)
--- NOTE | 2022-02-07 09:38 | P.PN ---
Subjective This is a pleasant 82-year-old male past medical history significant for hypertension, dyslipidemia, type 2 diabetes, chronic heart failure with pres erved ejection fraction, right bundle branch block, peripheral vascular disease status post stenting to the right common iliac vein on 07/2021, Recent covid-19 pneumonia in 01/11/2022. He follows in the office with Dr. Ann. We have been asked to see in consultation for hypotension and bradycardia. Patient presents emergency department with complaints of abdominal discomfort. It is located in the lower abdomen bilaterally. It is non-radiating. He does endorse decreased appetite. He denies nausea, vomiting, constipation, diarrhea. Symptoms occurred about one week ago and have progressively worsened. He describes it as aching. He denies any lightheadedness, dizziness, syncope, or near syncope. No chest pain or shortness of breath. DIAGNOSTICS -EKG reveals sinus rhythm, heart rate 75, first degree AV block, right bundle branch block morphology, left axis deviation, no acute STT wave abnormalities suggestive acute ischemia. Prior EKG with similar findings. -Chest x-ray revealed clearing of infiltrates in the left lower lobe compared to old exam -CT of abdomen and pelvis revealed some patchy atelectasis left lung base. Decreased excretion of contrast delivered images of the kidneys, suggestive of some degree of renal failure and is a change from old exam. No evidence of mese nteric edema. No ascites or free air. -Last Cardiac Catheterization 2016 with normal coronary arteries -Lexiscan stress test in the office 02/2021 revealed no reversible ischemia -Echocardiogram 02/2021 revealed an EF of 50%, mild LVH, RVSP 30 mmHg, no significant wall motion abnormalities 02/06/22 it was noted when taking the patient's BP that his heart rates were noted in the 40s on the BP cuff/pulse ox machine. Patient was not on telemetry, patient's heart rate was not counted manually. Cardiology was consulted. Patient was then placed on cardiac telemetry and heart rates have been in the 70s-80s in sinus. No bradycardia noted. 02/07/2022 Patient seen and examined at bedside, no acute distress. Abdominal pain has slightly improved. Echocardiogram revealed an EF of 5560%, no significant wall motion abnormalities. Telemetry reviewed patient maintained sinus rhythm with heart rates in 60s80s, no bradycardia noted. His blood pressures have improved. Blood pressure 108/61. PHYSICAL EXAMINATION Blood pressure 108/61, heart rate 76, afebrile, saturation 99% on 3 L nasal cannula CONSTITUTIONAL: No apparent distress. HEENT: Head is normocephalic. Neck Supple No JVD. CHEST EXAMINATION: Lungs are diminished bases bilaterally to auscultation. No chest wall tenderness is noted on palpation or with deep breathing. HEART EXAMINATION: Regular rate and rhythm. S1, S2 heard. No murmurs, gallops or rub. ABDOMEN: Soft, Tender to palpation in lower abdomen. Positive bowel sounds. EXTREMITIES: no lower extremity edema and no calf tenderness. SKIN: Warm, dry NEUROLOGIC EXAMINATION: Patient is awake, alert and oriented x3. ASSESSMENT Hypotension, improving Acute kidney injury Abdominal pain and decreased appetite History of hypertension Dyslipidemia Type 2 diabetes Peripheral vascular disease status post stenting to the right common iliac vein on 07/2021 PLAN No accurate documentation of bradycardia. Patient's HR documented in the 40s, per nursing this was from the BP machine yesterday, which is not as accurate. Patient was placed on telemetry, no evidence of bradycardia over the past 24 hours HR is in 70s-80s. Ok to Hold Lisinopril and Torsemide due to hypotension and acute kidney injury Continue home aspirin, statin, plavix Rest of management per primary From cardiology perspective no further inpatient workup indicated at this time. We will follow the patient as needed. Recommend patient follow up with Dr. Ann in 1-2 weeks. Nurse practitioner note has been reviewed by physician. Signing provider agrees with the documented findings, assessment, and plan of care. Objective - Vital Signs Vital signs: Vital Signs Temp 98.3 F 02/07/22 07:00 Pulse 76 02/07/22 07:00 Resp 18 02/07/22 07:00 BP 108/61 02/07/22 07:00 Pulse Ox 99 02/07/22 07:00 Intake & Output 02/06/22 02/07/22 02/07/22 18:59 06:59 18:59 Intake Total 586 Balance 586 Intake: Oral 586 Other: Voiding Method Toilet Toilet Diaper Diaper # Voids 1 1 - Labs CBC & Chem 7: 02/06/22 06:51 02/06/22 06:51 Labs: Abnormal Lab Results - Last 24 Hours (Table) 02/06/22 02/06/22 02/06/22 Range/Units 06:51 06:51 11:27 RBC 3.46 L (4.40-5.60) X 10*6/uL Hgb 10.2 L (13.0-17.0) g/dL Hct 33.3 L (39.6-50.0) % MCHC 30.6 L (32.0-37.0) g/dL RDW 16.4 H (11.5-14.5) % Immature Gran # 0.05 H (0.00-0.04) X 10*3/uL Chloride 110 H (96-109) mmol/L Carbon Dioxide 16.8 L (20.0-27.5) mmol/L BUN 36.9 H (9.0-27.0) mg/dL Creatinine 1.6 H (0.6-1.5) mg/dL Est GFR (CKD-EPI)AfAm 45.5 L (60.0-200.0) Est GFR (CKD-EPI)NonAf 39.3 L (60.0-200.0) BUN/Creatinine Ratio 23.06 H (12.00-20.00) Ratio POC Glucose (mg/dL) 136 H (75-99) mg/dL Calcium 7.8 L (8.7-10.3) mg/dL Total Protein 6.0 L (6.2-8.2) g/dL Albumin 2.9 L (3.8-4.9) g/dL Albumin/Globulin Ratio 0.94 L (1.60-3.17) g/dL 02/06/22 02/06/22 02/07/22 Range/Units 17:00 20:48 06:51 RBC (4.40-5.60) X 10*6/uL Hgb (13.0-17.0) g/dL Hct (39.6-50.0) % MCHC (32.0-37.0) g/dL RDW (11.5-14.5) % Immature Gran # (0.00-0.04) X 10*3/uL Chloride (96-109) mmol/L Carbon Dioxide (20.0-27.5) mmol/L BUN (9.0-27.0) mg/dL Creatinine (0.6-1.5) mg/dL Est GFR (CKD-EPI)AfAm (60.0-200.0) Est GFR (CKD-EPI)NonAf (60.0-200.0) BUN/Creatinine Ratio (12.00-20.00) Ratio POC Glucose (mg/dL) 113 H 110 H 117 H (75-99) mg/dL Calcium (8.7-10.3) mg/dL Total Protein (6.2-8.2) g/dL Albumin (3.8-4.9) g/dL Albumin/Globulin Ratio (1.60-3.17) g/dL Microbiology - Last 24 Hours (Table) 02/06/22 17:42 Urine Culture - Preliminary Urine,Clean Catch
[2022-02-07 10:22] LABS: African American GFR (CKD) 64.4 (60.0-200.0); Albumin 2.8 g/dL (3.8-4.9); Albumin/Globulin Ratio 1.04 (1.60-3.17); Anion Gap 8.2 mmol/L (10.00-18.00); BUN/Creat Ratio 20.08 Ratio (12.00-20.00); Blood Urea Nitrogen 24.1 mg/dL (9.0-27.0); Calcium 7.9 mg/dL (8.7-10.3); Carbon Dioxide 20.2 mmol/L (20.0-27.5); Globulin 2.7 g/dL (1.6-3.3); Non-African American GFR(CKD) 55.6 (60.0-200.0); Total Bilirubin 0.2 mg/dL (0.30-1.20); Total Protein 5.5 g/dL (6.2-8.2)
[2022-02-07 12:00] LABS: Glucose,Whole Blood 108 mg/dL (75-99)
[2022-02-07 12:31] LABS: Basophils # (A) 0.02 X 10*3/uL (0.00-0.10); Basophils % (A) 0.3 %; Eosinophils # (A) 0.19 X 10*3/uL (0.04-0.35); Eosinophils % (A) 2.6 %; HCT 31.8 % (39.6-50.0); HGB 9.5 g/dL (13.0-17.0); Immature Grans, Automated 0.6 %; Lymphocytes # (A) 1.53 X 10*3/uL (0.90-5.00); Lymphocytes % (A) 21.2 %; MCH 29.8 pg (27.0-32.0); MCHC 29.9 g/dL (32.0-37.0); MCV 99.7 fL (80.0-97.0); Mean Platelet Volume 9.5 fL (9.5-12.2); Monocytes # (A) 0.42 X 10*3/uL (0.20-1.00); Monocytes % (A) 5.8 %; NRBC Per 100 WBC 0 /100 WBCS (0.0-0.0); Neutrophils # (A) 5.03 X 10*3/uL (1.80-7.70); Neutrophils % (A) 69.5 %; Platelet Count 161 X 10*3/uL (140-440); RBC 3.19 X 10*6/uL (4.40-5.60); RDW 16.6 % (11.5-14.5); WBC 7.23 X 10*3/uL (4.50-10.00)
--- NOTE | 2022-02-07 13:06 | P.PN ---
Subjective Progress Note Date: 02/07/22 CHIEF COMPLAINT: Abdominal pain HISTORY OF PRESENT ILLNESS: Patient reports that his lower abdominal pain is about the same. He did report 2 episodes of diarrhea this morning. Denies any blood in his stool. Blood pressure a little better at 108/61. Denies any fever chills or sweats. He is tolerating a renal diet. Seems a little bit confused this morning. Afebrile. WBC is 7.23 hemoglobin is 9.5 platelets are 161 sodium is 141 potassium is 5.0 creatinine improved at 1.2 lactic acid 1.9 PHYSICAL EXAM: VITAL SIGNS: Reviewed. GENERAL: Well-developed in no acute distress. HEENT: No sclera icterus. Extraocular movements grossly intact. Moist buccal mucosa. Head is atraumatic, normocephalic. ABDOMEN: Soft. Nondistended. Tenderness with palpation across the lower abdomen NEUROLOGIC: Alert and oriented. Mildly confused ASSESSMENT: 1. Abdominal pain across the lower abdomen with diarrhea 2. Acute kidney injury 3. Hypotension 4. Recent Covid pneumonia PLAN: -Continue supportive care -Further recommendations forthcoming per surgeon -Continue IV fluids -Continue regular diet Physician Psychological Anthropologist note has been reviewed by physician. Signing provider agrees with the documented findings, assessment, and plan of care. I have personally seen and examined the patient, reviewed the DOCUMENT RESTORER /PAs history, exam and MDM and agree with the assessment and plan as written. Based on total visit time, I have performed more than 50% of the visit. As above: Patient's pain is improved today. Says he has no pain at rest currently. No diarrhea. CAT scan reviewed. Some liquid within the colon consistent with possible enteritis/colitis. Head of the pancreas certainly looks abnormal on this CAT scan and this was reviewed with radiology who concurs. Etiology unclear but neoplasm not excluded. Patient is not a good surgical candidate however endoscopic ultrasound would typically be the best approach to evaluate that at this point. Resume diet. If diarrhea recurs check stool studies. We'll follow with you. Objective - Vital Signs Vital signs: Vital Signs Temp 98.3 F 02/07/22 07:00 Pulse 76 02/07/22 07:00 Resp 18 02/07/22 07:00 BP 108/61 02/07/22 07:00 Pulse Ox 99 02/07/22 07:00 Intake & Output 02/06/22 02/07/22 02/07/22 18:59 06:59 18:59 Intake Total 586 Balance 586 Intake: Oral 586 Other: Voiding Method Toilet Toilet Toilet Diaper Diaper Diaper # Voids 1 1 - Labs CBC & Chem 7: 02/07/22 06:20 02/07/22 06:20 Labs: Abnormal Lab Results - Last 24 Hours (Table) 02/06/22 02/06/22 02/07/22 Range/Units 17:00 20:48 06:20 RBC 3.19 L (4.40-5.60) X 10*6/uL Hgb 9.5 L (13.0-17.0) g/dL Hct 31.8 L (39.6-50.0) % MCV 99.7 H (80.0-97.0) fL MCHC 29.9 L (32.0-37.0) g/dL RDW 16.6 H (11.5-14.5) % Chloride (96-109) mmol/L Anion Gap (10.00-18.00) mmol/L Est GFR (CKD-EPI)NonAf (60.0-200.0) BUN/Creatinine Ratio (12.00-20.00) Ratio Glucose (70-110) mg/dL POC Glucose (mg/dL) 113 H 110 H (75-99) mg/dL Calcium (8.7-10.3) mg/dL Total Bilirubin (0.30-1.20) mg/dL Total Protein (6.2-8.2) g/dL Albumin (3.8-4.9) g/dL Albumin/Globulin Ratio (1.60-3.17) g/dL 02/07/22 02/07/22 02/07/22 Range/Units 06:20 06:51 11:58 RBC (4.40-5.60) X 10*6/uL Hgb (13.0-17.0) g/dL Hct (39.6-50.0) % MCV (80.0-97.0) fL MCHC (32.0-37.0) g/dL RDW (11.5-14.5) % Chloride 113 H (96-109) mmol/L Anion Gap 8.20 L (10.00-18.00) mmol/L Est GFR (CKD-EPI)NonAf 55.6 L (60.0-200.0) BUN/Creatinine Ratio 20.08 H (12.00-20.00) Ratio Glucose 111 H (70-110) mg/dL POC Glucose (mg/dL) 117 H 108 H (75-99) mg/dL Calcium 7.9 L (8.7-10.3) mg/dL Total Bilirubin 0.20 L (0.30-1.20) mg/dL Total Protein 5.5 L (6.2-8.2) g/dL Albumin 2.8 L (3.8-4.9) g/dL Albumin/Globulin Ratio 1.04 L (1.60-3.17) g/dL Microbiology - Last 24 Hours (Table) 02/06/22 17:42 Urine Culture - Preliminary Urine,Clean Catch
[2022-02-07 16:59] LABS: Glucose,Whole Blood 113 mg/dL (75-99)
--- NOTE | 2022-02-07 17:39 | P.PN ---
Subjective Progress Note Date: 02/07/22 This is a 82-year-old male patient of Dr. Waite who presented to the ER with complaints of abdominal discomfort. Onset of symptoms approximately 1 week. Patient currently resides at [facility] facility. Patient does have past medical history of ammonia, Covid, left hip fracture, cholecystectomy, anxiety and depression. Chest x-ray was completed showing no active cardiopulmonary disease there is clearing of some airspace infiltrate left lower lobe compared to old exam. KUB x-ray completed showing nonacute abdomen. CT of abdomen and pelvis completed showing some patchy atelectasis at the lung bases that is increased compared to old exam decreased excretion of contrast delayed image of kidneys is suggestive some renal failure. EKG completed showing sinus rhythm with first- degree AV block and right bundle branch block. COVID-19 negative. Creatinine 1.92 this does appear higher than patient's baseline. Bun 48. Amylase 104 lipase elevated at 433. Per nursing staff patient having low heart rate and blood pressure in the 80s and 90s. Patient apparently is asymptomatic. Telemetry ordered and cardiology consult placed repeat labs ordered. At this time patient denies chest pain or shortness of breath. Patient denies nausea vomiting or diarrhea. Patient denies any urinary burning or frequency Objective - Vital Signs Vital signs: Vital Signs Temp 98.0 F 02/07/22 13:32 Pulse 72 02/07/22 13:32 Resp 16 02/07/22 13:32 BP 94/54 02/07/22 13:32 Pulse Ox 95 02/07/22 13:32 Intake & Output 02/06/22 02/07/22 02/07/22 18:59 06:59 18:59 Intake Total 586 180 Balance 586 180 Intake: Oral 586 180 Other: Voiding Method Toilet Toilet Toilet Diaper Diaper Diaper # Voids 1 1 1 - Exam Head normocephalic Neck supple Lungs clear to auscultation bilaterally no wheezing or crackles Heart regular rate and rhythm S1-S2, no rub or gallop Abdomen is soft nontender nondistended positive bowel sounds no hepatosplenomegaly Extremities no edema Neuro alert and orientated to 3 - Labs CBC & Chem 7: 02/07/22 06:20 02/07/22 06:20 Labs: Abnormal Lab Results - Last 24 Hours (Table) 02/06/22 02/07/22 02/07/22 Range/Units 20:48 06:20 06:20 RBC 3.19 L (4.40-5.60) X 10*6/uL Hgb 9.5 L (13.0-17.0) g/dL Hct 31.8 L (39.6-50.0) % MCV 99.7 H (80.0-97.0) fL MCHC 29.9 L (32.0-37.0) g/dL RDW 16.6 H (11.5-14.5) % Chloride 113 H (96-109) mmol/L Anion Gap 8.20 L (10.00-18.00) mmol/L Est GFR (CKD-EPI)NonAf 55.6 L (60.0-200.0) BUN/Creatinine Ratio 20.08 H (12.00-20.00) Ratio Glucose 111 H (70-110) mg/dL POC Glucose (mg/dL) 110 H (75-99) mg/dL Calcium 7.9 L (8.7-10.3) mg/dL Total Bilirubin 0.20 L (0.30-1.20) mg/dL Total Protein 5.5 L (6.2-8.2) g/dL Albumin 2.8 L (3.8-4.9) g/dL Albumin/Globulin Ratio 1.04 L (1.60-3.17) g/dL 02/07/22 02/07/22 02/07/22 Range/Units 06:51 11:58 16:55 RBC (4.40-5.60) X 10*6/uL Hgb (13.0-17.0) g/dL Hct (39.6-50.0) % MCV (80.0-97.0) fL MCHC (32.0-37.0) g/dL RDW (11.5-14.5) % Chloride (96-109) mmol/L Anion Gap (10.00-18.00) mmol/L Est GFR (CKD-EPI)NonAf (60.0-200.0) BUN/Creatinine Ratio (12.00-20.00) Ratio Glucose (70-110) mg/dL POC Glucose (mg/dL) 117 H 108 H 113 H (75-99) mg/dL Calcium (8.7-10.3) mg/dL Total Bilirubin (0.30-1.20) mg/dL Total Protein (6.2-8.2) g/dL Albumin (3.8-4.9) g/dL Albumin/Globulin Ratio (1.60-3.17) g/dL Microbiology - Last 24 Hours (Table) 02/06/22 14:27 Blood Culture - Preliminary Blood No Growth after 24 hours 02/06/22 17:42 Urine Culture - Preliminary Urine,Clean Catch Assessment and Plan Assessment: 1. Abdominal pain. KUB x-ray negative CT of abdomen negative. 2. Acute kidney injury. Repeat labs have been ordered, BUN and creatinine on presentation were 48 and 1.92 today BUN is 24 and creatinine 1.2 3. Bradycardia. EKG showing first-degree AV block. Cardiology consult placed telemetry ordered 4. Recent treatment for COVID-19 pneumonia 5. History of asthma 6. History of hyperlipidemia 7. History of essential hypertension 8. UTI patient was started on Levaquin DVT prophylaxis lovenox. GI prophylaxis Protonix Cardiology consult placed Computed tomography scan of the abdomen and pelvis was done, patient is being evaluated by surgery for abdominal pain Telemetry ordered Repeat labs ordered
[2022-02-07 21:03] LABS: Glucose,Whole Blood 132 mg/dL (75-99)
[2022-02-07] MEDS: ENOXAPARIN 40 MG/0.4 ML SYRINGE SQ SCH (21:27)
[2022-02-07] MEDS: ZINC SULFATE 220 MG CAP PO SCH (21:27)
[2022-02-07] MEDS: ATORVASTATIN 40 MG TAB PO SCH (21:27)
[2022-02-07] MEDS: MELATONIN 3 MG TABLET PO SCH (21:27)
[2022-02-07] MEDS: FOLIC ACID 1 MG TAB PO SCH (21:27)
[2022-02-07] MEDS: CLOPIDOGREL 75 MG TAB PO SCH (21:27)
[2022-02-07] MEDS: TAMSULOSIN 0.4 MG CAP.ER.24H PO SCH (21:27)
[2022-02-08] MEDS: SODIUM CHLORIDE 0.9% 1,000 ML IV SCH ×2 (03:15→19:44)
[2022-02-08 07:44] LABS: Glucose,Whole Blood 154 mg/dL (75-99)
[2022-02-08] MEDS: PANTOPRAZOLE 40 MG TABLET PO SCH (08:34)
[2022-02-08] MEDS: ASCORBIC ACID 500 MG TAB PO SCH (08:34)
[2022-02-08] MEDS: CHOLECALCIFEROL 125 MCG (5000 IU) TABLET PO SCH (08:34)
[2022-02-08] MEDS: INSULIN ASPART (NovoLOG) 100 UNIT/ML VIAL SQ SCH ×4 (08:34→21:42)
[2022-02-08] MEDS: PARoxetine 20 MG TAB PO SCH (08:34)
[2022-02-08] MEDS: AMMONIUM LACTATE 12% CREAM 140 GM TUBE TOPICAL SCH ×2 (08:35→20:35)
[2022-02-08] MEDS ORDERED: LEVOFLOXACIN 500MG-D5W PMX 500 MG in DEXTROSE/WATER 1 100ML.BAG IVPB SCH (09:00)
[2022-02-08] MEDS ORDERED: LACTULOSE 20 GM/30 ML CUP PO ONE (10:45)
[2022-02-08 12:23] LABS: Glucose,Whole Blood 137 mg/dL (75-99)
[2022-02-08] MEDS ORDERED: MAGNESIUM HYDROXIDE 2,400 MG/10 ML CUP PO PRN (13:13)
--- NOTE | 2022-02-08 13:34 | P.PN ---
Subjective Progress Note Date: 02/08/22 This is a 82-year-old male patient of Dr. Waite who presented to the ER with complaints of abdominal discomfort. Onset of symptoms approximately 1 week. Patient currently resides at [facility] facility. Patient does have past medical history of ammonia, Covid, left hip fracture, cholecystectomy, anxiety and depression. Chest x-ray was completed showing no active cardiopulmonary disease there is clearing of some airspace infiltrate left lower lobe compared to old exam. KUB x-ray completed showing nonacute abdomen. CT of abdomen and pelvis completed showing some patchy atelectasis at the lung bases that is increased compared to old exam decreased excretion of contrast delayed image of kidneys is suggestive some renal failure. EKG completed showing sinus rhythm with first- degree AV block and right bundle branch block. COVID-19 negative. Creatinine 1.92 this does appear higher than patient's baseline. Bun 48. Amylase 104 lipase elevated at 433. Per nursing staff patient having low heart rate and blood pressure in the 80s and 90s. Patient apparently is asymptomatic. Telemetry ordered and cardiology consult placed repeat labs ordered. At this time patient denies chest pain or shortness of breath. Patient denies nausea vomiting or diarrhea. Patient denies any urinary burning or frequency On 02/08/2022 patient was seen and examined on the medical floor he is alert and oriented 3 in no apparent distress, he is still complaining of constipation and pain in bilateral lower quadrants otherwise he denies any complaints at this time his vital exam reveals a temperature of 97.8 pulse 82 respiration 18 blood pressure 89/54 pulse ox 98% on 3 L nasal cannula, urine culture is positive for more than 100,000 group D enterococcus sensitivity is still pending patient is maintained on IV Levaquin. Objective - Vital Signs Vital signs: Vital Signs Temp 97.8 F 02/08/22 08:23 Pulse 82 02/08/22 08:23 Resp 18 02/08/22 08:23 BP 89/54 02/08/22 08:23 Pulse Ox 98 02/08/22 08:23 Intake & Output 02/07/22 02/08/22 02/08/22 18:59 06:59 18:59 Intake Total 360 240 Output Total 400 Balance 360 -400 240 Intake: Oral 360 240 Output: Urine 400 Other: Voiding Method Toilet Diaper # Voids 1 2 - Exam Head normocephalic Neck supple Lungs clear to auscultation bilaterally no wheezing or crackles Heart regular rate and rhythm S1-S2, no rub or gallop Abdomen is soft nontender nondistended positive bowel sounds no h epatosplenomegaly Extremities no edema Neuro alert and orientated to 3 - Labs CBC & Chem 7: 02/07/22 06:20 02/07/22 06:20 Labs: Abnormal Lab Results - Last 24 Hours (Table) 02/07/22 02/07/22 02/08/22 Range/Units 16:55 21:02 07:43 POC Glucose (mg/dL) 113 H 132 H 154 H (75-99) mg/dL 02/08/22 Range/Units 12:22 POC Glucose (mg/dL) 137 H (75-99) mg/dL Microbiology - Last 24 Hours (Table) 02/06/22 17:42 Urine Culture - Preliminary Urine,Clean Catch Group D Enterococcus 02/06/22 14:27 Blood Culture - Preliminary Blood No Growth after 24 hours Assessment and Plan Assessment: 1. Abdominal pain. KUB x-ray negative CT of abdomen negative. 2. Acute kidney injury. Repeat labs have been ordered, BUN and creatinine on presentation were 48 and 1.92 today BUN is 24 and creatinine 1.2 3. Bradycardia. EKG showing first-degree AV block. Cardiology consult placed telemetry ordered 4. Recent treatment for COVID-19 pneumonia 5. History of asthma 6. History of hyperlipidemia 7. History of essential hypertension 8. UTI patient was started on Levaquin, awaiting final culture results 9. Constipation patient given a dose of lactulose and a dose of milk of magnesia DVT prophylaxis lovenox. GI prophylaxis Protonix Cardiology consult placed Computed tomography scan of the abdomen and pelvis was done, patient is being evaluated by surgery for abdominal pain Telemetry ordered Repeat labs ordered
--- NOTE | 2022-02-08 13:54 | P.PN ---
Subjective Progress Note Date: 02/08/22 CHIEF COMPLAINT: Abdominal pain HISTORY OF PRESENT ILLNESS: Patient reports some improvement in his lower abdominal pain. He has had no further episodes of diarrhea. Denies any nausea or vomiting. Tolerating regular diet. Afebrile. BP 89/54. Computed tomography scan abdomen and pelvis addendum notes low density mass extending inferiorly from the level of the head of the pancreas and measuring shani roximately 3.3 cm x 8.6 cm in cephalad to caudal dimension by 3.1 cm with shaggy margins suspicious for pancreatic adenocarcinoma. Patient on antibiotics for UTI. Afebrile. No new labs. Medicine service given patient's laxatives for constipation PHYSICAL EXAM: VITAL SIGNS: Reviewed. GENERAL: Well-developed in no acute distress. HEENT: No sclera icterus. Extraocular movements grossly intact. Moist buccal mucosa. Head is atraumatic, normocephalic. ABDOMEN: Soft. Nondistended. Tenderness with palpation across the lower abdomen NEUROLOGIC: Alert and oriented. Mildly confused ASSESSMENT: 1. Abdominal pain across the lower abdomen with diarrhea possibly due to enteritis or colitis 2. Pancreatic mass PLAN: -Pancreatic mass noted on CAT scan. Patient is not a good surgical candidate however endoscopic ultrasound would typically be the best approach to evaluate that at this point -Continue supportive care -Continue regular diet Physician Coal [employer] note has been reviewed by physician. Signing provider agrees with the documented findings, assessment, and plan of care. I have personally seen and examined the patient, reviewed the [employer]OCIATE /PAs history, exam and MDM and agree with the assessment and plan as written. Based on total visit time, I have performed more than 50% of the visit. As above: Patient doing better today. He did have a bowel movement. Denies abdominal pain. Lower abdominal pain and tenderness likely on the basis of cystitis from UTI. Discussed CAT scan findings with patient. Pancreatic mass is suspicious for possible malignancy and needs to be evaluated further with endoscopic ultrasound as outpatient if the patient desires further invest igations. Patient will follow-up with me in the office in 1-2 weeks to discuss further. We'll sign off at this point. Please reconsult if needed. Objective - Vital Signs Vital signs: Vital Signs Temp 97.8 F 02/08/22 08:23 Pulse 82 02/08/22 08:23 Resp 18 02/08/22 08:23 BP 89/54 02/08/22 08:23 Pulse Ox 98 02/08/22 08:23 Intake & Output 02/07/22 02/08/22 02/08/22 18:59 06:59 18:59 Intake Total 360 240 Output Total 400 Balance 360 -400 240 Intake: Oral 360 240 Output: Urine 400 Other: Voiding Method Toilet Diaper # Voids 1 2 - Labs CBC & Chem 7: 02/07/22 06:20 02/07/22 06:20 Labs: Abnormal Lab Results - Last 24 Hours (Table) 02/07/22 02/07/22 02/08/22 Range/Units 16:55 21:02 07:43 POC Glucose (mg/dL) 113 H 132 H 154 H (75-99) mg/dL 02/08/22 Range/Units 12:22 POC Glucose (mg/dL) 137 H (75-99) mg/dL Microbiology - Last 24 Hours (Table) 02/06/22 17:42 Urine Culture - Preliminary Urine,Clean Catch Group D Enterococcus 02/06/22 14:27 Blood Culture - Preliminary Blood No Growth after 24 hours
[2022-02-08 17:08] LABS: Glucose,Whole Blood 136 mg/dL (75-99)
[2022-02-08] MEDS: FOLIC ACID 1 MG TAB PO SCH (20:34)
[2022-02-08] MEDS: MELATONIN 3 MG TABLET PO SCH (20:34)
[2022-02-08] MEDS: ZINC SULFATE 220 MG CAP PO SCH (20:34)
[2022-02-08] MEDS: ENOXAPARIN 40 MG/0.4 ML SYRINGE SQ SCH (20:34)
[2022-02-08] MEDS: ATORVASTATIN 40 MG TAB PO SCH (20:34)
[2022-02-08] MEDS: CLOPIDOGREL 75 MG TAB PO SCH (20:34)
[2022-02-08] MEDS: TAMSULOSIN 0.4 MG CAP.ER.24H PO SCH (20:34)
[2022-02-08 21:01] LABS: Glucose,Whole Blood 140 mg/dL (75-99)
[2022-02-09] MEDS: SODIUM CHLORIDE 0.9% 1,000 ML IV SCH ×2 (05:27→14:18)
[2022-02-09 07:01] LABS: Glucose,Whole Blood 111 mg/dL (75-99)
[2022-02-09 07:02] LABS: Basophils % (A) 0 %; Eosinophils # (A) 0.1 k/uL (0-0.7); Eosinophils % (A) 2 %; HCT 29.9 % (39.0-53.0); HGB 9.2 gm/dL (13.0-17.5); Hypochromasia Slight; Lymphocytes # (A) 1.3 k/uL (1.0-4.8); Lymphocytes % (A) 19 %; MCH 29.3 pg (25.0-35.0); MCHC 30.8 g/dL (31.0-37.0); Monocytes # (A) 0.3 k/uL (0-1.0); Monocytes % (A) 4 %; Neutrophils % (A) 74 %; Platelet Count 166 k/uL (150-450); RBC 3.15 m/uL (4.30-5.90); RDW 15.1 % (11.5-15.5); WBC 6.7 k/uL (3.8-10.6)
[2022-02-09] MEDS: INSULIN ASPART (NovoLOG) 100 UNIT/ML VIAL SQ SCH ×4 (09:03→22:06)
[2022-02-09 09:04] LABS: African American GFR (CKD) 71.6 (60.0-200.0); Albumin 2.9 g/dL (3.8-4.9); Anion Gap 8.1 mmol/L (10.00-18.00); BUN/Creat Ratio 12.27 Ratio (12.00-20.00); Blood Urea Nitrogen 13.5 mg/dL (9.0-27.0); Carbon Dioxide 19.9 mmol/L (20.0-27.5); Globulin 2.9 g/dL (1.6-3.3); Non-African American GFR(CKD) 61.8 (60.0-200.0); Potassium 4.9 mmol/L (3.5-5.5); Total Bilirubin 0.4 mg/dL (0.30-1.20); Total Protein 5.8 g/dL (6.2-8.2)
[2022-02-09] MEDS: AMMONIUM LACTATE 12% CREAM 140 GM TUBE TOPICAL SCH ×2 (09:05→22:07)
[2022-02-09] MEDS: PANTOPRAZOLE 40 MG TABLET PO SCH (09:05)
[2022-02-09] MEDS: PARoxetine 20 MG TAB PO SCH (09:15)
[2022-02-09] MEDS: CHOLECALCIFEROL 125 MCG (5000 IU) TABLET PO SCH (09:15)
[2022-02-09] MEDS: ASCORBIC ACID 500 MG TAB PO SCH (09:15)
[2022-02-09] MEDS ORDERED: LEVOFLOXACIN 500MG-D5W PMX 500 MG in DEXTROSE/WATER 1 100ML.BAG IVPB SCH (12:00)
[2022-02-09 12:21] LABS: Glucose,Whole Blood 133 mg/dL (75-99)
[2022-02-09] MEDS: DAPTOmycin 500 MG in SODIUM CHLORIDE 0.9% 50 ML IVPB SCH (14:18)
--- NOTE | 2022-02-09 15:03 | P.PN ---
Subjective Progress Note Date: 02/09/22 This is a 82-year-old male patient of Dr. Waite who presented to the ER with complaints of abdominal discomfort. Onset of symptoms approximately 1 week. Patient currently resides at [facility] facility. Patient does have past medical history of ammonia, Covid, left hip fracture, cholecystectomy, anxiety and depression. Chest x-ray was completed showing no active cardiopulmonary disease there is clearing of some airspace infiltrate left lower lobe compared to old exam. KUB x-ray completed showing nonacute abdomen. CT of abdomen and pelvis completed showing some patchy atelectasis at the lung bases that is increased compared to old exam decreased excretion of contrast delayed image of kidneys is suggestive some renal failure. EKG completed showing sinus rhythm with first- degree AV block and right bundle branch block. COVID-19 negative. Creatinine 1.92 this does appear higher than patient's baseline. Bun 48. Amylase 104 lipase elevated at 433. Per nursing staff patient having low heart rate and blood pressure in the 80s and 90s. Patient apparently is asymptomatic. Telemetry ordered and cardiology consult placed repeat labs ordered. At this time patient denies chest pain or shortness of breath. Patient denies nausea vomiting or diarrhea. Patient denies any urinary burning or frequency On 02/08/2022 patient was seen and examined on the medical floor he is alert and oriented 3 in no apparent distress, he is still complaining of constipation and pain in bilateral lower quadrants otherwise he denies any complaints at this time his vital exam reveals a temperature of 97.8 pulse 82 respiration 18 blood pressure 89/54 pulse ox 98% on 3 L nasal cannula, urine culture is positive for more than 100,000 group D enterococcus sensitivity is still pending patient is maintained on IV Levaquin. On 02/09/2022 patient was seen and examined on the medical floor he is alert and oriented 3 in no distress there is no fever or chills no headache or dizziness no chest pain no shortness of breath no cough no nausea or vomiting no abdominal pain no diarrhea and no urinary symptoms, urine culture is positive for vancomycin-resistant enterococcus, patient was maintained on IV Levaquin, this will be discontinued and he will be started on IV daptomycin, this was explained to patient and he understands condition. Will recheck labs in a.m. Objective - Vital Signs Vital signs: Vital Signs Temp 98.4 F 02/09/22 14:00 Pulse 80 02/09/22 14:00 Resp 18 02/09/22 14:00 BP 107/62 02/09/22 14:00 Pulse Ox 99 02/09/22 14:00 Intake & Output 02/08/22 02/09/22 02/09/22 18:59 06:59 18:59 Intake Total 358 360 Output Total 550 Balance 358 -190 Intake: Oral 358 360 Output: Urine 550 Other: Voiding Method Toilet # Voids 3 3 # Bowel Movements 1 1 - Exam Head normocephalic Neck supple Lungs clear to auscultation bilaterally no wheezing or crackles Heart regular rate and rhythm S1-S2, no rub or gallop Abdomen is soft nontender nondistended positive bowel sounds no hepatosplenomegaly Extremities no edema Neuro alert and orientated to 3 - Labs CBC & Chem 7: 02/09/22 06:54 02/09/22 06:00 Labs: Abnormal Lab Results - Last 24 Hours (Table) 02/08/22 02/08/22 02/09/22 Range/Units 17:06 20:59 06:00 RBC (4.30-5.90) m/uL Hgb (13.0-17.5) gm/dL Hct (39.0-53.0) % MCHC (31.0-37.0) g/dL Chloride 110 H (96-109) mmol/L Carbon Dioxide 19.9 L (20.0-27.5) mmol/L Anion Gap 8.10 L (10.00-18.00) mmol/L POC Glucose (mg/dL) 136 H 140 H (75-99) mg/dL Calcium 8.0 L (8.7-10.3) mg/dL Total Protein 5.8 L (6.2-8.2) g/dL Albumin 2.9 L (3.8-4.9) g/dL Albumin/Globulin Ratio 1.00 L (1.60-3.17) g/dL 02/09/22 02/09/22 02/09/22 Range/Units 06:54 07:00 12:20 RBC 3.15 L (4.30-5.90) m/uL Hgb 9.2 L D (13.0-17.5) gm/dL Hct 29.9 L (39.0-53.0) % MCHC 30.8 L (31.0-37.0) g/dL Chloride (96-109) mmol/L Carbon Dioxide (20.0-27.5) mmol/L Anion Gap (10.00-18.00) mmol/L POC Glucose (mg/dL) 111 H 133 H (75-99) mg/dL Calcium (8.7-10.3) mg/dL Total Protein (6.2-8.2) g/dL Albumin (3.8-4.9) g/dL Albumin/Globulin Ratio (1.60-3.17) g/dL Microbiology - Last 24 Hours (Table) 02/06/22 17:42 Urine Culture - Final Urine,Clean Catch Enterococcus faecium VRE 02/06/22 14:27 Blood Culture - Preliminary Blood No Growth after 48 hours Assessment and Plan Assessment: 1. Abdominal pain. KUB x-ray negative CT of abdomen negative. 2. Acute kidney injury. Repeat labs have been ordered, BUN and creatinine on presentation were 48 and 1.92 today BUN is 24 and creatinine 1.2 3. Bradycardia. EKG showing first-degree AV block. Cardiology consult placed telemetry ordered 4. Recent treatment for COVID-19 pneumonia 5. History of asthma 6. History of hyperlipidemia 7. History of essential hypertension 8. UTI patient was started on Levaquin, awaiting final culture results 9. Constipation patient given a dose of lactulose and a dose of milk of magnesia DVT prophylaxis lovenox. GI prophylaxis Protonix Cardiology consult placed Computed tomography scan of the abdomen and pelvis was done, patient is being evaluated by surgery for abdominal pain Telemetry ordered Repeat labs ordered
[2022-02-09 17:04] LABS: Glucose,Whole Blood 132 mg/dL (75-99)
[2022-02-09 21:12] LABS: Glucose,Whole Blood 134 mg/dL (75-99)
[2022-02-09] MEDS: ATORVASTATIN 40 MG TAB PO SCH (22:05)
[2022-02-09] MEDS: ENOXAPARIN 40 MG/0.4 ML SYRINGE SQ SCH (22:05)
[2022-02-09] MEDS: FOLIC ACID 1 MG TAB PO SCH (22:05)
[2022-02-09] MEDS: CLOPIDOGREL 75 MG TAB PO SCH (22:05)
[2022-02-09] MEDS: ZINC SULFATE 220 MG CAP PO SCH (22:05)
[2022-02-09] MEDS: TAMSULOSIN 0.4 MG CAP.ER.24H PO SCH (22:05)
[2022-02-09] MEDS: MELATONIN 3 MG TABLET PO SCH (22:06)
[2022-02-10] MEDS: SODIUM CHLORIDE 0.9% 1,000 ML IV SCH ×2 (05:35→21:08)
[2022-02-10 07:05] LABS: Glucose,Whole Blood 119 mg/dL (75-99)
[2022-02-10] MEDS: INSULIN ASPART (NovoLOG) 100 UNIT/ML VIAL SQ SCH ×4 (07:36→21:06)
[2022-02-10] MEDS: PARoxetine 20 MG TAB PO SCH (07:49)
[2022-02-10] MEDS: AMMONIUM LACTATE 12% CREAM 140 GM TUBE TOPICAL SCH ×2 (07:49→21:08)
[2022-02-10] MEDS: CHOLECALCIFEROL 125 MCG (5000 IU) TABLET PO SCH (07:49)
[2022-02-10] MEDS: PANTOPRAZOLE 40 MG TABLET PO SCH (07:49)
[2022-02-10] MEDS: ASCORBIC ACID 500 MG TAB PO SCH (07:49)
--- NOTE | 2022-02-10 10:37 | P.PN ---
Subjective Progress Note Date: 02/10/22 This is a 82-year-old male patient of Dr. Waite who presented to the ER with complaints of abdominal discomfort. Onset of symptoms approximately 1 week. Patient currently resides at [facility] facility. Patient does have past medical history of ammonia, Covid, left hip fracture, cholecystectomy, anxiety and depression. Chest x-ray was completed showing no active cardiopulmonary disease there is clearing of some airspace infiltrate left lower lobe compared to old exam. KUB x-ray completed showing nonacute abdomen. CT of abdomen and pelvis completed showing some patchy atelectasis at the lung bases that is increased compared to old exam decreased excretion of contrast delayed image of kidneys is suggestive some renal failure. EKG completed showing sinus rhythm with first- degree AV block and right bundle branch block. COVID-19 negative. Creatinine 1.92 this does appear higher than patient's baseline. Bun 48. Amylase 104 lipase elevated at 433. Per nursing staff patient having low heart rate and blood pressure in the 80s and 90s. Patient apparently is asymptomatic. Telemetry ordered and cardiology consult placed repeat labs ordered. At this time patient denies chest pain or shortness of breath. Patient denies nausea vomiting or diarrhea. Patient denies any urinary burning or frequency On 02/08/2022 patient was seen and examined on the medical floor he is alert and oriented 3 in no apparent distress, he is still complaining of constipation and pain in bilateral lower quadrants otherwise he denies any complaints at this time his vital exam reveals a temperature of 97.8 pulse 82 respiration 18 blood pressure 89/54 pulse ox 98% on 3 L nasal cannula, urine culture is positive for more than 100,000 group D enterococcus sensitivity is still pending patient is maintained on IV Levaquin. On 02/09/2022 patient was seen and examined on the medical floor he is alert and oriented 3 in no distress there is no fever or chills no headache or dizziness no chest pain no shortness of breath no cough no nausea or vomiting no abdominal pain no diarrhea and no urinary symptoms, urine culture is positive for vancomycin-resistant enterococcus, patient was maintained on IV Levaquin, this will be discontinued and he will be started on IV daptomycin, this was explained to patient and he understands condition. Will recheck labs in a.m. On 02/10/2022 patient is alert and oriented 3. Patient reports improvement with abdominal pain. Patient reports frequent stools. Patient denies chest pain or shortness breath. Patient denies nausea vomiting or diarrhea. Patient denies any urinary burning or frequency. Patient remains on IV Rocephin. Per surgical services CT scan findings of pancreatic mass was discussed with patient and it is recommended endoscopic ultrasound as outpatient and advised patient to follow-up in 1-2 weeks to discuss further Objective - Vital Signs Vital signs: Vital Signs Temp 98.3 F 02/10/22 07:54 Pulse 92 02/10/22 07:54 Resp 18 02/10/22 07:54 BP 112/63 02/10/22 07:54 Pulse Ox 94 L 02/10/22 07:54 Intake & Output 02/09/22 02/10/22 02/10/22 18:59 06:59 18:59 Intake Total 540 240 Output Total 850 Balance -310 240 Intake: Oral 540 240 Output: Urine 850 Other: Voiding Method Toilet # Voids 1 1 # Bowel Movements 1 1 1 - Exam Head normocephalic Neck supple Lungs clear to auscultation bilaterally no wheezing or crackles Heart regular rate and rhythm S1-S2, no rub or gallop Abdomen is soft nontender nondistended positive bowel sounds no hepatosplenomegaly Extremities no edema Neuro alert and orientated to 3 - Labs CBC & Chem 7: 02/09/22 06:54 02/09/22 06:00 Labs: Abnormal Lab Results - Last 24 Hours (Table) 02/09/22 02/09/22 02/09/22 Range/Units 12:20 17:03 21:10 POC Glucose (mg/dL) 133 H 132 H 134 H (75-99) mg/dL 02/10/22 Range/Units 07:04 POC Glucose (mg/dL) 119 H (75-99) mg/dL Microbiology - Last 24 Hours (Table) 02/06/22 14:27 Blood Culture - Preliminary Blood No Growth after 72 hours Assessment and Plan Assessment: 1. Abdominal pain. KUB x-ray negative CT of abdomen negative. 2. Acute kidney injury. Repeat labs have been ordered, BUN and creatinine on presentation were 48 and 1.92 today BUN is 24 and creatinine 1.2 3. Bradycardia. EKG showing first-degree AV block. Patient was evaluated by cardiology services okay to hold lisinopril and torsemide no further evidence of bradycardia no further workup inpatient 4. Recent treatment for COVID-19 pneumonia 5. History of asthma 6. History of hyperlipidemia 7. History of essential hypertension 8. UTI positive for VRE. Patient antibiotic currently daptomycin 9. Constipation patient given a dose of lactulose and a dose of milk of magnesia area resolved 10. Pancreatic mass. Patient was evaluated by surgical services and findings of computed tomography scan was discussed with patient and recommending endoscopic ultrasound as outpatient patient to follow-up with Dr. cruz 1-2 weeks DVT prophylaxis lovenox. GI prophylaxis Protonix Computed tomography scan of the abdomen and pelvis was done, patient is being evaluated by surgery for abdominal pain Repeat labs ordered
[2022-02-10 12:04] LABS: Glucose,Whole Blood 147 mg/dL (75-99)
[2022-02-10] MEDS: DAPTOmycin 500 MG in SODIUM CHLORIDE 0.9% 50 ML IVPB SCH (12:56)
[2022-02-10 16:23] LABS: Glucose,Whole Blood 146 mg/dL (75-99)
[2022-02-10 17:10] LABS: Appearance,Urine Clear (Clear); Bilirubin,Urine Negative (Negative); Blood,Urine Negative (Negative); Color,Urine Light Yellow; Glucose,Urine (UA) Negative (Negative); Hyaline Casts,Urine 1 /lpf (0-2); Ketones,Urine Negative (Negative); Leukocyte Esterase,Urine Moderate (Negative); Mucus,Urine Rare /hpf; Nitrite,Urine Negative (Negative); PH, Urine 5.5 (5.0-8.0); Protein,Urine Negative (Negative); RBC,Urine <1 /hpf (0-5); Squamous Epithelial Cell,Urine <1 /hpf (0-4); Urobilinogen,Urine <2.0 mg/dL (<2.0); WBC,Urine 2 /hpf (0-5)
[2022-02-10 20:47] LABS: Glucose,Whole Blood 108 mg/dL (75-99)
[2022-02-10] MEDS: CLOPIDOGREL 75 MG TAB PO SCH (21:07)
[2022-02-10] MEDS: ZINC SULFATE 220 MG CAP PO SCH (21:07)
[2022-02-10] MEDS: ATORVASTATIN 40 MG TAB PO SCH (21:08)
[2022-02-10] MEDS: ENOXAPARIN 40 MG/0.4 ML SYRINGE SQ SCH (21:08)
[2022-02-10] MEDS: TAMSULOSIN 0.4 MG CAP.ER.24H PO SCH (21:08)
[2022-02-10] MEDS: FOLIC ACID 1 MG TAB PO SCH (21:08)
[2022-02-10] MEDS: MELATONIN 3 MG TABLET PO SCH (21:08)
--- NOTE | 2022-02-11 00:39 | P.CONS ---
History of Present Illness - Reason for Consult Consult date: 02/10/22 VRE urinary tract infection Requesting physician: Zenon Nascimento - Chief Complaint abd pain x 1 week - History of Present Illness History of Present Illness : Patient is 82-year-old male presented to the hospital about a week ago on 02/05/2022 for evaluation of abdominal discomfort symptom was going on for about a week before presentation to the hospital no clear history of any nausea or vomiting patient did have a CT of abdominal pelvis completed on admission some patchy atelectasis low-density mass extending inferiorly from the level of the head of the pancreas suspicious for pancreatic adenocarcinoma patient has been evaluated by general surgery, the patient has been afebrile during this hospital stay patient did have normal white count did have a UA on admission which shows small leukocyte esterase however no significant WBC those cultures are showing Enterococcus faecium VRE for more than 100,000 colonies patient was started on daptomycin infectious disease was consulted for further management of antibiotic therapy patient currently denies having any burning or frequency of urine no difficulty urination no suprapubic or flank pain and abdominal pain he present to the hospital seem to have mostly resolved Review of system: CONSTITUTIONAL: Positive for weakness denies fever. EYES: No complaint. ENT: No complaint. RESPIRATORY: No complaint. CARDIOVASCULAR: No complaint. GENITOURINARY: No complaint. GASTROINTESTINAL: As per history of present illness. MUSCULOSKELETAL: No complaint. INTEGUMENTARY : No complaint. PSYCHOLOGIC: No complaint. ENDOCRINE: No complaint. NEUROLOGIC: No complaint. Past medical history : Reviewed, documented below Past surgical history : Reviewed, documented below Social history: Reviewed, documented below Medications: Reviewed, as documented below EXAMINATION: Vital sigans= Reviewed and documented below GENERAL DESCRIPTION: Elderly male lying in bed, no distress. No tachypnea or accessory muscle of respiration use. HEENT: Shows Pallor , no scleral icterus. Oral mucous membrane is dry. NECK: Trachea central, no thyromegaly. LUNGS: Unlabored breathing. Clear to auscultation anteriorly. No wheeze or crackle. HEART: S1, S2, regular rate and rhythm. ABDOMEN: Soft, no tenderness , guarding or rigidity EXTREMITIES: No edema feet SKIN: No rash, no masses palpable. NEUROLOGICAL: The patient is awake, alert, oriented x3, mood and affect normal. LABS AND RADIOLOGY: Reviewed results see below Assessment : Patient with a positive urine culture with VRE in this patient corresponding UA was not significantly positive patient do not have any fever no white count and no urine symptoms possible contamination or colonization clinically l not behaving as a symptomatic UTI Plan: 1-we will repeat a clean-catch UA and culture if that UA significantly positive we will consider continuing daptomycin however if the clean-catch UA is negative recommend to discontinue daptomycin as clinically not behaving as symptomatic UTI We will follow on clinical condition and cultures to further adjust medication if needed Thank you for this consultation we will follow the patient along with you Past Medical History Past Medical History: Asthma, Cancer, Hyperlipidemia, Hypertension, Osteoarthritis (OA), Sleep Apnea/CPAP/BIPAP Additional Past Medical History / Comment(s): cpap, fell in october 2013 and fractured left hip, periodontal infection that delayed hip surgery. blisters on cami legs [facility] home care monitors History of Any Multi-Drug Resistant Organisms: None Reported Past Surgical History: Cholecystectomy, Joint Replacement, Orthopedic Surgery Additional Past Surgical History / Comment(s): brain tumor removed as a teen, cami hip replacement Past Anesthesia/Blood Transfusion Reactions: No Reported Reaction Additional Past Anesthesia/Blood Transfusion Reaction / Comm: very severe sleep apnea per patient Past Psychological History: Anxiety, Depression Additional Psychological History / Comment(s): Pt resides alone in an apartment. He has a couple of walkers but does not usually use them. He states he drives. Smoking Status: Former smoker Past Alcohol Use History: None Reported Additional Past Alcohol Use History / Comment(s): Pt started smoking cigars in 2 and quit smoking them in 1998 Past Drug Use History: None Reported - Past Family History Brother(s) Family Medical History: Cancer Additional Family Medical History / Comment(s): kidney,liver Medications and Allergies Home Medications Medication Instructions Recorded Confirmed Type PARoxetine HCL [Paxil] 40 mg PO DAILY 06/08/14 02/05/22 History Folic Acid 1 mg PO HS 07/12/21 02/05/22 History Tamsulosin [Flomax] 0.4 mg PO HS 07/12/21 02/05/22 History Torsemide [Demadex] 20 mg PO DAILY 07/12/21 02/05/22 History Atorvastatin [Lipitor] 40 mg PO HS 12/31/21 02/05/22 History Clopidogrel [Plavix] 75 mg PO HS 12/31/21 02/05/22 History Cholecalciferol [Vitamin D3 (125 125 mcg PO DAILY 14 Days #14 tablet 01/16/22 02/05/22 Rx Mcg = 5000 Iu)] Acetaminophen [Acetaminophen ER] 650 mg PO Q4H PRN 02/05/22 02/05/22 History Ammonium Lactate Cream [Lac-Hydrin 1 applic TOPICAL BID 02/05/22 02/05/22 History 12% Cream] Ascorbic Acid [Vitamin C] 250 mg PO DAILY 02/05/22 02/05/22 History Enoxaparin [Lovenox] 40 mg SQ HS 02/05/22 02/05/22 History Melatonin 3 mg PO HS 02/05/22 02/05/22 History Zinc Sulfate [Orazinc] 220 mg PO HS 02/05/22 02/05/22 History lisinopriL [Zestril] 5 mg PO DAILY 02/05/22 02/05/22 History metFORMIN HCL [Glucophage] 500 mg PO DAILY@1600 02/05/22 02/05/22 History Allergies Allergy/AdvReac Type Severity Reaction Status Date / Time Penicillins Allergy Rash/Hives Verified 02/05/22 15:59 Physical Exam Vitals: Vital Signs Temp Pulse Resp BP BP Pulse Ox 02/10/22 13:37 99.2 F 90 18 137/52 99 02/10/22 07:54 98.3 F 92 18 112/63 94 L 02/10/22 03:10 97.8 F 95 18 131/67 95 02/09/22 19:35 98.3 F 75 17 116/63 98 Intake and Output 02/10/22 02/10/22 02/10/22 06:59 14:59 22:59 Intake Total 358 Output Total 250 Balance 108 Intake: Oral 358 Output: Urine 250 Other: # Voids 1 1 # Bowel Movements 1 Results CBC & Chem 7: 02/09/22 06:54 02/09/22 06:00 Labs: Abnormal Lab Results - Last 24 Hours (Table) 02/09/22 02/09/22 02/10/22 Range/Units 17:03 21:10 07:04 POC Glucose (mg/dL) 132 H 134 H 119 H (75-99) mg/dL 02/10/22 Range/Units 12:02 POC Glucose (mg/dL) 147 H (75-99) mg/dL Microbiology - Last 24 Hours (Table) 02/06/22 14:27 Blood Culture - Preliminary Blood No Growth after 72 hours
[2022-02-11 07:40] LABS: Glucose,Whole Blood 114 mg/dL (75-99)
[2022-02-11] MEDS: INSULIN ASPART (NovoLOG) 100 UNIT/ML VIAL SQ SCH ×4 (08:28→20:41)
[2022-02-11 09:13] LABS: Basophils # (A) 0.02 X 10*3/uL (0.00-0.10); Basophils % (A) 0.3 %; Eosinophils # (A) 0.13 X 10*3/uL (0.04-0.35); Eosinophils % (A) 1.9 %; HCT 25.1 % (39.6-50.0); HGB 9.1 g/dL (13.0-17.0); Immature Grans, Automated 0.6 %; Lymphocytes # (A) 1.26 X 10*3/uL (0.90-5.00); MCH 35.8 pg (27.0-32.0); MCHC 36.3 g/dL (32.0-37.0); MCV 98.8 fL (80.0-97.0); Mean Platelet Volume 9.3 fL (9.5-12.2); Monocytes # (A) 0.36 X 10*3/uL (0.20-1.00); Monocytes % (A) 5.2 %; NRBC Per 100 WBC 0 /100 WBCS (0.0-0.0); Neutrophils # (A) 5.18 X 10*3/uL (1.80-7.70); Platelet Count 149 X 10*3/uL (140-440); RBC 2.54 X 10*6/uL (4.40-5.60); RDW 16.6 % (11.5-14.5); WBC 6.99 X 10*3/uL (4.50-10.00)
[2022-02-11] MEDS: CHOLECALCIFEROL 125 MCG (5000 IU) TABLET PO SCH (09:13)
[2022-02-11] MEDS: PARoxetine 20 MG TAB PO SCH (09:14)
[2022-02-11] MEDS: ASCORBIC ACID 500 MG TAB PO SCH (09:14)
[2022-02-11] MEDS: PANTOPRAZOLE 40 MG TABLET PO SCH (09:14)
[2022-02-11 09:32] LABS: African American GFR (CKD) 71.6 (60.0-200.0); Albumin 2.9 g/dL (3.8-4.9); Albumin/Globulin Ratio 1.12 (1.60-3.17); Anion Gap 8.4 mmol/L (10.00-18.00); BUN/Creat Ratio 12.09 Ratio (12.00-20.00); Blood Urea Nitrogen 13.3 mg/dL (9.0-27.0); Calcium 7.7 mg/dL (8.7-10.3); Carbon Dioxide 23.6 mmol/L (20.0-27.5); Globulin 2.6 g/dL (1.6-3.3); Non-African American GFR(CKD) 61.8 (60.0-200.0); Potassium 4.2 mmol/L (3.5-5.5); Total Bilirubin 0.3 mg/dL (0.30-1.20); Total Protein 5.5 g/dL (6.2-8.2)
[2022-02-11] MEDS: AMMONIUM LACTATE 12% CREAM 140 GM TUBE TOPICAL SCH ×2 (09:32→20:41)
[2022-02-11 12:20] LABS: Glucose,Whole Blood 150 mg/dL (75-99)
[2022-02-11] MEDS: SODIUM CHLORIDE 0.9% 1,000 ML IV SCH ×2 (13:11→20:44)
[2022-02-11] MEDS: DAPTOmycin 500 MG in SODIUM CHLORIDE 0.9% 50 ML IVPB SCH (13:12)
[2022-02-11 17:46] LABS: Glucose,Whole Blood 131 mg/dL (75-99)
[2022-02-11 20:30] LABS: Glucose,Whole Blood 168 mg/dL (75-99)
[2022-02-11] MEDS: FOLIC ACID 1 MG TAB PO SCH (20:42)
[2022-02-11] MEDS: TAMSULOSIN 0.4 MG CAP.ER.24H PO SCH (20:42)
[2022-02-11] MEDS: CLOPIDOGREL 75 MG TAB PO SCH (20:42)
[2022-02-11] MEDS: ATORVASTATIN 40 MG TAB PO SCH (20:42)
[2022-02-11] MEDS: MELATONIN 3 MG TABLET PO SCH (20:43)
[2022-02-11] MEDS: ENOXAPARIN 40 MG/0.4 ML SYRINGE SQ SCH (20:43)
[2022-02-11] MEDS: ZINC SULFATE 220 MG CAP PO SCH (20:43)
--- NOTE | 2022-02-11 23:44 | P.PN ---
Subjective Progress Note Date: 02/11/22 Principal diagnosis: VRE urinary tract infection Patient is a 82-year-old male presented to the hospital with abdominal discomfort CT abdominal pelvis did show some atelectasis and possible pancreatic mass, patient did not have any urinary symptoms and UA was not positive however urine culture did grow VRE. On today's evaluation that is 02/11/2022, the patient denies having any fever or any chills, the patient is breathing comfortably, denies having any chest pain s hortness of breath or cough no abdominal pain denies any burning or frequency of urine and no difficulty urination Objective - Vital Signs Vital signs: Vital Signs Temp 97 F L 02/11/22 07:30 Pulse 85 02/11/22 07:30 Resp 18 02/11/22 07:30 BP 123/61 02/11/22 07:30 Pulse Ox 97 02/11/22 07:30 Intake & Output 02/10/22 02/11/22 02/11/22 18:59 06:59 18:59 Intake Total 476 120 Output Total 525 Balance -49 120 Intake: Oral 476 120 Output: Urine 525 Other: Voiding Method Toilet # Voids 1 2 0 # Bowel Movements 1 - Exam GENERAL DESCRIPTION: An elderly male lying in bed in no distress RESPIRATORY SYSTEM: Unlabored breathing , decreased breath sounds at bases HEART: S1 S2 regular rate and rhythm , ABDOMEN: Soft , no tenderness EXTREMITIES: No edema feet - Labs CBC & Chem 7: 02/11/22 03:40 02/11/22 03:40 Labs: Abnormal Lab Results - Last 24 Hours (Table) 02/10/22 02/10/22 02/10/22 Range/Units 16:21 16:40 20:46 RBC (4.40-5.60) X 10*6/uL Hgb (13.0-17.0) g/dL Hct (39.6-50.0) % MCV (80.0-97.0) fL MCH (27.0-32.0) pg RDW (11.5-14.5) % MPV (9.5-12.2) fL Chloride (96-109) mmol/L Anion Gap (10.00-18.00) mmol/L Glucose (70-110) mg/dL POC Glucose (mg/dL) 146 H 108 H (75-99) mg/dL Calcium (8.7-10.3) mg/dL Total Protein (6.2-8.2) g/dL Albumin (3.8-4.9) g/dL Albumin/Globulin Ratio (1.60-3.17) g/dL Ur Leukocyte Esterase Moderate H (Negative) Urine Mucus Rare H (None) /hpf 02/11/22 02/11/22 02/11/22 Range/Units 03:40 03:40 07:29 RBC 2.54 L (4.40-5.60) X 10*6/uL Hgb 9.1 L (13.0-17.0) g/dL Hct 25.1 L (39.6-50.0) % MCV 98.8 H (80.0-97.0) fL MCH 35.8 H (27.0-32.0) pg RDW 16.6 H (11.5-14.5) % MPV 9.3 L (9.5-12.2) fL Chloride 111 H (96-109) mmol/L Anion Gap 8.40 L (10.00-18.00) mmol/L Glucose 124 H (70-110) mg/dL POC Glucose (mg/dL) 114 H (75-99) mg/dL Calcium 7.7 L (8.7-10.3) mg/dL Total Protein 5.5 L (6.2-8.2) g/dL Albumin 2.9 L (3.8-4.9) g/dL Albumin/Globulin Ratio 1.12 L (1.60-3.17) g/dL Ur Leukocyte Esterase (Negative) Urine Mucus (None) /hpf 02/11/22 Range/Units 12:15 RBC (4.40-5.60) X 10*6/uL Hgb (13.0-17.0) g/dL Hct (39.6-50.0) % MCV (80.0-97.0) fL MCH (27.0-32.0) pg RDW (11.5-14.5) % MPV (9.5-12.2) fL Chloride (96-109) mmol/L Anion Gap (10.00-18.00) mmol/L Glucose (70-110) mg/dL POC Glucose (mg/dL) 150 H (75-99) mg/dL Calcium (8.7-10.3) mg/dL Total Protein (6.2-8.2) g/dL Albumin (3.8-4.9) g/dL Albumin/Globulin Ratio (1.60-3.17) g/dL Ur Leukocyte Esterase (Negative) Urine Mucus (None) /hpf Microbiology - Last 24 Hours (Table) 02/06/22 14:27 Blood Culture - Preliminary Blood No Growth after 96 hours Assessment and Plan (1) UTI (urinary tract infection) Current Visit: No Status: Acute Code(s): N39.0 - URINARY TRACT INFECTION, SITE NOT SPECIFIED SNOMED Code(s): 87888914 Plan: 1patient with a positive urine culture with VRE in this patient presented to hospital with abdominal pain which has resolved CT of abdominal pelvis question of pancreatic mass, patient currently do not have any urinary symptoms and urine is not significantly positive more likely contamination recommended discontinue daptomycin and monitor the patient closely off antibiotics Time with Patient: Less than 30
[2022-02-12 07:43] LABS: Glucose,Whole Blood 138 mg/dL (75-99)
[2022-02-12 08:01] VITALS: RESP 18
[2022-02-12] MEDS: INSULIN ASPART (NovoLOG) 100 UNIT/ML VIAL SQ SCH ×2 (09:32→12:41)
[2022-02-12] MEDS: CHOLECALCIFEROL 125 MCG (5000 IU) TABLET PO SCH (09:33)
[2022-02-12] MEDS: PARoxetine 20 MG TAB PO SCH (09:33)
[2022-02-12] MEDS: ASCORBIC ACID 500 MG TAB PO SCH (09:34)
[2022-02-12] MEDS: AMMONIUM LACTATE 12% CREAM 140 GM TUBE TOPICAL SCH (09:34)
[2022-02-12] MEDS: PANTOPRAZOLE 40 MG TABLET PO SCH (09:34)
[2022-02-12 12:28] LABS: Glucose,Whole Blood 150 mg/dL (75-99)
--- NOTE | 2022-02-12 14:06 | P.PN ---
Subjective Progress Note Date: 02/11/22 This is a 82-year-old male patient of Dr. Waite who presented to the ER with complaints of abdominal discomfort. Onset of symptoms approximately 1 week. Patient currently resides at [facility] facility. Patient does have past medical history of ammonia, Covid, left hip fracture, cholecystectomy, anxiety and depression. Chest x-ray was completed showing no active cardiopulmonary disease there is clearing of some airspace infiltrate left lower lobe compared to old exam. KUB x-ray completed showing nonacute abdomen. CT of abdomen and pelvis completed showing some patchy atelectasis at the lung bases that is increased compared to old exam decreased excretion of contrast delayed image of kidneys is suggestive some renal failure. EKG completed showing sinus rhythm with first- degree AV block and right bundle branch block. COVID-19 negative. Creatinine 1.92 this does appear higher than patient's baseline. Bun 48. Amylase 104 lipase elevated at 433. Per nursing staff patient having low heart rate and blood pressure in the 80s and 90s. Patient apparently is asymptomatic. Telemetry ordered and cardiology consult placed repeat labs ordered. At this time patient denies chest pain or shortness of breath. Patient denies nausea vomiting or diarrhea. Patient denies any urinary burning or frequency On 02/08/2022 patient was seen and examined on the medical floor he is alert and oriented 3 in no apparent distress, he is still complaining of constipation and pain in bilateral lower quadrants otherwise he denies any complaints at this time his vital exam reveals a temperature of 97.8 pulse 82 respiration 18 blood pressure 89/54 pulse ox 98% on 3 L nasal cannula, urine culture is positive for more than 100,000 group D enterococcus sensitivity is still pending patient is maintained on IV Levaquin. On 02/09/2022 patient was seen and examined on the medical floor he is alert and oriented 3 in no distress there is no fever or chills no headache or dizziness no chest pain no shortness of breath no cough no nausea or vomiting no abdominal pain no diarrhea and no urinary symptoms, urine culture is positive for vancomycin-resistant enterococcus, patient was maintained on IV Levaquin, this will be discontinued and he will be started on IV daptomycin, this was explained to patient and he understands condition. Will recheck labs in a.m. On 02/10/2022 patient is alert and oriented 3. Patient reports improvement with abdominal pain. Patient reports frequent stools. Patient denies chest pain or shortness breath. Patient denies nausea vomiting or diarrhea. Patient denies any urinary burning or frequency. Patient remains on IV Rocephin. Per surgical services CT scan findings of pancreatic mass was discussed with patient and it is recommended endoscopic ultrasound as outpatient and advised patient to follow-up in 1-2 weeks to discuss further On 02/11/2022 patient is alert and oriented 3. Patient reports improvement with abdominal pain. Patient reports frequent stools. Patient denies chest pain or shortness breath. Patient denies nausea vomiting or diarrhea. Patient denies any urinary burning or frequency. Objective - Vital Signs Vital signs: Vital Signs Temp 97.5 F L 02/12/22 08:00 Pulse 86 02/12/22 08:00 Resp 18 02/12/22 08:00 BP 111/61 02/12/22 08:00 Pulse Ox 93 L 02/12/22 08:45 Intake & Output 02/11/22 02/12/22 02/12/22 18:59 06:59 18:59 Intake Total 780 118 Output Total 275 1040 Balance 505 -922 Intake: Oral 780 118 Output: Urine 275 1040 Other: Voiding Method Toilet Toilet # Voids 0 1 - Exam Head normocephalic Neck supple Lungs clear to auscultation bilaterally no wheezing or crackles Heart regular rate and rhythm S1-S2, no rub or gallop Abdomen is soft nontender nondistended positive bowel sounds no hepatosplenomegaly Extremities no edema Neuro alert and orientated to 3 - Labs CBC & Chem 7: 02/11/22 03:40 02/11/22 03:40 Labs: Abnormal Lab Results - Last 24 Hours (Table) 02/11/22 02/11/22 02/12/22 Range/Units 17:37 20:29 07:42 POC Glucose (mg/dL) 131 H 168 H 138 H (75-99) mg/dL 02/12/22 Range/Units 12:26 POC Glucose (mg/dL) 150 H (75-99) mg/dL Microbiology - Last 24 Hours (Table) 02/06/22 14:27 Blood Culture - Preliminary Blood No Growth after 120 hours Assessment and Plan Assessment: 1. Abdominal pain. KUB x-ray negative CT of abdomen negative. 2. Acute kidney injury. Repeat labs have been ordered, BUN and creatinine on presentation were 48 and 1.92 today BUN is 24 and creatinine 1.2 3. Bradycardia. EKG showing first-degree AV block. Patient was evaluated by cardiology services okay to hold lisinopril and torsemide no further evidence of bradycardia no further workup inpatient 4. Recent treatment for COVID-19 pneumonia 5. History of asthma 6. History of hyperlipidemia 7. History of essential hypertension 8. UTI positive for VRE. Patient antibiotic currently daptomycin 9. Constipation patient given a dose of lactulose and a dose of milk of magnesia area resolved 10. Pancreatic mass. Patient was evaluated by surgical services and findings of computed tomography scan was discussed with patient and recommending endoscopic ultrasound as outpatient patient to follow-up with Dr. cruz 1-2 weeks DVT prophylaxis lovenox. GI prophylaxis Protonix Computed tomography scan of the abdomen and pelvis was done, patient is being evaluated by surgery for abdominal pain Repeat labs ordered
[2022-02-12 14:07] VITALS: BMI 32.7
--- NOTE | 2022-02-12 14:16 | P.DS ---
Providers Date of admission: 02/06/22 11:26 Expected date of discharge: 02/12/22 Attending physician: Zenon Nascimento Consults: 02/06/22 10:19 Consult Physician Routine Consulting Provider: [facility] Consult Reason/Comments: LOW HR, LOW B/P Do you want consulting provider notified?: Yes 02/06/22 12:42 Consult Physician Routine Consulting Provider: Kamari Johnston Consult Reason/Comments: Abdominal pain Do you want consulting provider notified?: Yes 02/10/22 11:00 Consult Physician Routine Consulting Provider: Leon Robbins Consult Reason/Comments: UTI vre Do you want consulting provider notified?: Yes Primary care physician: Laurie Waite [facility] Course: Diagnosis on discharge: 1. Abdominal pain. KUB x-ray negative CT of abdomen reveals pancreatic mass. 2. Acute kidney injury. Repeat labs have been ordered, BUN and creatinine on presentation were 48 and 1.92 today BUN is 24 and creatinine 1.2 3. Bradycardia. EKG showing first-degree AV block. Patient was evaluated by cardiology services okay to hold lisinopril and torsemide no further evidence of bradycardia no further workup inpatient 4. Recent treatment for COVID-19 pneumonia 5. History of asthma 6. History of hyperlipidemia 7. History of essential hypertension 8. UTI positive for VRE. Patient antibiotic currently daptomycin 9. Constipation patient given a dose of lactulose and a dose of milk of magnesia area resolved 10. Pancreatic mass. Patient was evaluated by surgical services and findings of computed tomography scan was discussed with patient and recommending endoscopic ultrasound as outpatient patient to follow-up with Dr. Johnston 1-2 weeks. Patient also should have an MRI of the Pancreas and appointment at the Pancreatic cancer clinic in [place] at [facility] course: This is a 82-year-old male patient of Dr. Waite who presented to the ER with complaints of abdominal discomfort. Onset of symptoms approximately 1 week. Patient currently resides at [facility] facility. Patient does have past medical history of ammonia, Covid, left hip fracture, cholecystectomy, anxiety and depression. Chest x-ray was completed showing no active cardiopulmonary disease there is clearing of some airspace infiltrate left lower lobe compared to old exam. KUB x-ray completed showing nonacute abdomen. CT of abdomen and pelvis completed showing some patchy atelectasis at the lung bases that is increased compared to old exam decreased excretion of contrast delayed image of kidneys is suggestive some renal failure. EKG completed showing sinus rhythm with first- degree AV block and right bundle branch block. COVID-19 negative. Creatinine 1.92 this does appear higher than patient's baseline. Bun 48. Amylase 104 lipase elevated at 433. Per nursing staff patient having low heart rate and blood pressure in the 80s and 90s. Patient apparently is asymptomatic. Telemetry ordered and cardiology consult placed repeat labs ordered. At this time patient denies chest pain or shortness of breath. Patient denies nausea vomiting or diarrhea. Patient denies any urinary burning or frequency On 02/08/2022 patient was seen and examined on the medical floor he is alert and oriented 3 in no apparent distress, he is still complaining of constipation and pain in bilateral lower quadrants otherwise he denies any complaints at this time his vital exam reveals a temperature of 97.8 pulse 82 respiration 18 blood pressure 89/54 pulse ox 98% on 3 L nasal cannula, urine culture is positive for more than 100,000 group D enterococcus sensitivity is still pending patient is maintained on IV Levaquin. On 02/09/2022 patient was seen and examined on the medical floor he is alert and oriented 3 in no distress there is no fever or chills no headache or dizziness no chest pain no shortness of breath no cough no nausea or vomiting no abdominal pain no diarrhea and no urinary symptoms, urine culture is positive for vancomycin-resistant enterococcus, patient was maintained on IV Levaquin, this will be discontinued and he will be started on IV daptomycin, this was explained to patient and he understands condition. Will recheck labs in a.m. On 02/10/2022 patient is alert and oriented 3. Patient reports improvement with abdominal pain. Patient reports frequent stools. Patient denies chest pain or shortness breath. Patient denies nausea vomiting or diarrhea. Patient denies any urinary burning or frequency. Patient remains on IV Rocephin. Per surgical services CT scan findings of pancreatic mass was discussed with patient and it is recommended endoscopic ultrasound as outpatient and advised patient to follow-up in 1-2 weeks to discuss further On 02/11/2022 patient is alert and oriented 3. Patient reports improvement with abdominal pain. Patient reports frequent stools. Patient denies chest pain or shortness breath. Patient denies nausea vomiting or diarrhea. Patient denies any urinary burning or frequency. Plan - Discharge Summary New Discharge Prescriptions: Continue PARoxetine HCL [Paxil] 40 mg PO DAILY Torsemide [Demadex] 20 mg PO DAILY Folic Acid 1 mg PO HS Atorvastatin [Lipitor] 40 mg PO HS Cholecalciferol [Vitamin D3 (125 Mcg = 5000 Iu)] 125 mcg PO DAILY 14 Days #14 tablet metFORMIN HCL [Glucophage] 500 mg PO DAILY@1600 Melatonin 3 mg PO HS lisinopriL [Zestril] 5 mg PO DAILY Ascorbic Acid [Vitamin C] 250 mg PO DAILY Tamsulosin [Flomax] 0.4 mg PO HS Clopidogrel [Plavix] 75 mg PO HS Acetaminophen [Acetaminophen ER] 650 mg PO Q4H PRN PRN Reason: Pain Zinc Sulfate [Orazinc] 220 mg PO HS Ammonium Lactate Cream [Lac-Hydrin 12% Cream] 1 applic TOPICAL BID Discontinued Enoxaparin [Lovenox] 40 mg SQ HS Discharge Medication List PARoxetine HCL [Paxil] 40 mg PO DAILY 06/08/14 [History] Folic Acid 1 mg PO HS 07/12/21 [History] Tamsulosin [Flomax] 0.4 mg PO HS 07/12/21 [History] Torsemide [Demadex] 20 mg PO DAILY 07/12/21 [History] Atorvastatin [Lipitor] 40 mg PO HS 12/31/21 [History] Clopidogrel [Plavix] 75 mg PO HS 12/31/21 [History] Cholecalciferol [Vitamin D3 (125 Mcg = 5000 Iu)] 125 mcg PO DAILY 14 Days #14 tablet 01/16/22 [Rx] Acetaminophen [Acetaminophen ER] 650 mg PO Q4H PRN 02/05/22 [History] Ammonium Lactate Cream [Lac-Hydrin 12% Cream] 1 applic TOPICAL BID 02/05/22 [History] Ascorbic Acid [Vitamin C] 250 mg PO DAILY 02/05/22 [History] Melatonin 3 mg PO HS 02/05/22 [History] Zinc Sulfate [Orazinc] 220 mg PO HS 02/05/22 [History] lisinopriL [Zestril] 5 mg PO DAILY 02/05/22 [History] metFORMIN HCL [Glucophage] 500 mg PO DAILY@1600 02/05/22 [History] Follow up Appointment(s)/Referral(s): Kamari Johnston MD [Medical Doctor] - 2 Weeks Parish Ann MD [STAFF PHYSICIAN] - 2 Weeks Laurie Waite MD [Primary Care Provider] - 1-2 days [facility] [REFERRING] - As Needed (Contact for resources and possible starting of Meals on Wheels program. ) [facility] [NON-STAFF] - ([facility] contact you to make an visit appointment. ) Discharge/Stand Alone Forms: Who Do I Call?, Community Resources
[2022-02-12 15:14] VITALS: BP 108/69; PULSE 118; TEMP 98.4
== END 2022-02-12 15:35 | disposition home health service (06) | DRG 392 ==
LOC: EC 14:56 → 6NMEDSUR 20:12 → OBSVTOIN 02-06 11:26
PROVIDERS: ADMIT Internal Medicine; ATTEND Internal Medicine
DX: R10.9 Unspecified abdominal pain (principal); I50.32 Chronic diastolic (congestive) heart failure; J98.11 Atelectasis; N17.9 Acute kidney failure, unspecified; N39.0 Urinary tract infection, site not specified; Z16.21 Resistance to vancomycin; B95.2 Enterococcus as the cause of diseases classified elsewhere; Z20.822 Contact with and (suspected) exposure to COVID-19; E11.51 Type 2 diabetes mellitus with diabetic peripheral angiopathy without gangrene; R00.1 Bradycardia, unspecified; E78.5 Hyperlipidemia, unspecified; Z86.16 Personal history of COVID-19; F32.A Depression, unspecified; F41.9 Anxiety disorder, unspecified; I11.0 Hypertensive heart disease with heart failure; R41.0 Disorientation, unspecified; I95.9 Hypotension, unspecified; G47.30 Sleep apnea, unspecified; K86.89 Other specified diseases of pancreas; I44.0 Atrioventricular block, first degree; I45.10 Unspecified right bundle-branch block; J45.909 Unspecified asthma, uncomplicated; K59.00 Constipation, unspecified; Z88.0 Allergy status to penicillin; Z79.02 Long term (current) use of antithrombotics/antiplatelets; Z79.84 Long term (current) use of oral hypoglycemic drugs; Z79.899 Other long term (current) drug therapy; Z87.01 Personal history of pneumonia (recurrent); Z87.891 Personal history of nicotine dependence; Z90.49 Acquired absence of other specified parts of digestive tract; Z91.81 History of falling; Z95.820 Peripheral vascular angioplasty status with implants and grafts; Z96.649 Presence of unspecified artificial hip joint
CPT/HCPCS: 36415; 71045; 74018; 74177; 80053; 81001; 82150; 83605; 83690; 83735; 84443; 84484; 85025; 85610; 85730; 87040; 87077; 87086; 87186; 87635; 93306; 96374; 96375; 99285

== ENCOUNTER 2023-04-22 10:57 | Observation (INO) | payer MEDICARE, OTHER ==
--- NOTE | 2023-04-22 11:35 | ED ---
Fall HPI - General Chief Complaint: Fall Stated Complaint: fall Time Seen by Provider: 04/22/23 11:08 Source: patient Mode of arrival: EMS - History of Present Illness Initial Comments: 83-year-old male presents to the ED with a chief complaint of fall. Patient states yesterday was going to take a shower when his legs gave out. States that he fell forward and was able to catch himself on the shower curtain. States was unable to get up for 30 minutes due to pain in his legs however notes that he did not injure any of his body due to the fall. States he has had ongoing pain in his lower legs due to what he thinks is infection. States at that time EMS assisted the patient up and he refused transport to the hospital. Patient again today states that his legs gave out and fell in the same exact way. Denies any injury at this time. Denies any head injury. Denies LOC. Denies saddle anesthesia or incontinence. Notes chronic back pain however now notes worsening of this chronic back pain. Denies chest pain or shortness of breath. No other complaints. - Related Data Home Medications Medication Instructions Recorded Confirmed PARoxetine HCL [Paxil] 40 mg PO DAILY 06/08/14 02/05/22 Folic Acid 1 mg PO HS 07/12/21 02/05/22 Tamsulosin [Flomax] 0.4 mg PO HS 07/12/21 02/05/22 Torsemide [Demadex] 20 mg PO DAILY 07/12/21 02/05/22 Atorvastatin [Lipitor] 40 mg PO HS 12/31/21 02/05/22 Clopidogrel [Plavix] 75 mg PO HS 12/31/21 02/05/22 Acetaminophen [Acetaminophen ER] 650 mg PO Q4H PRN 02/05/22 02/05/22 Ammonium Lactate Cream [Lac-Hydrin 1 applic TOPICAL BID 02/05/22 02/05/22 12% Cream] Ascorbic Acid [Vitamin C] 250 mg PO DAILY 02/05/22 02/05/22 Melatonin 3 mg PO HS 02/05/22 02/05/22 Zinc Sulfate [Orazinc] 220 mg PO HS 02/05/22 02/05/22 lisinopriL [Zestril] 5 mg PO DAILY 02/05/22 02/05/22 metFORMIN HCL [Glucophage] 500 mg PO DAILY@1600 02/05/22 02/05/22 Previous Rx's Medication Instructions Recorded Cholecalciferol [Vitamin D3 (125 125 mcg PO DAILY 14 Days #14 tablet 01/16/22 Mcg = 5000 Iu)] Allergies Allergy/AdvReac Type Severity Reaction Status Date / Time Penicillins Allergy Rash/Hives Verified 04/22/23 11:06 Review of Systems ROS Statement: Those systems with pertinent positive or pertinent negative responses have been documented in the HPI. ROS Other: All systems not noted in ROS Statement are negative. Past Medical History Past Medical History: Asthma, Cancer, Hyperlipidemia, Hypertension, Oste oarthritis (OA), Sleep Apnea/CPAP/BIPAP Additional Past Medical History / Comment(s): cpap, fell in october 2013 and fractured left hip, periodontal infection that delayed hip surgery. blisters on cami legs wrapped-cl home care monitors History of Any Multi-Drug Resistant Organisms: VRE Date of last positivie culture/infection: 02/06/22 VRE MDRO Source:: Urine Past Surgical History: Cholecystectomy, Joint Replacement, Orthopedic Surgery Additional Past Surgical History / Comment(s): brain tumor removed as a teen, cami hip replacement Past Anesthesia/Blood Transfusion Reactions: No Reported Reaction Additional Past Anesthesia/Blood Transfusion Reaction / Comment(s): very severe sleep apnea per patient Past Psychological History: Anxiety, Depression Smoking Status: Former smoker Past Alcohol Use History: None Reported Past Drug Use History: None Reported - Past Family History Brother(s) Family Medical History: Cancer Additional Family Medical History / Comment(s): kidney,liver General Exam Limitations: no limitations, physical limitation General appearance: alert, in no apparent distress Head exam: Present: atraumatic, normocephalic Eye exam: Present: PERRL, EOMI ENT exam: Present: mucous membranes moist Neck exam: Present: other (No midline cervical spinal tenderness to palpation) Respiratory exam: Present: normal lung sounds bilaterally Cardiovascular Exam: Present: regular rate, normal rhythm GI/Abdominal exam: Present: soft Rectal exam: Present: deferred Extremities exam: Present: other (Strength of bilateral upper extremities 5/5. Sensation intact. Strength of bilateral lower extremities limited secondary to pain 3/5. Sensation intact. DP/PT pulses 2+.) Back exam: Present: other (Midline thoracic spinal tenderness to palpation. No midline lumbar spinal tenderness to palpation) Neurological exam: Present: alert, CN II-XII intact Skin exam: Present: other (Bilateral lower extremities show 1+ pitting edema with warmth, erythema, and tenderness to palpation) Course Vital Signs 04/22/23 04/22/23 04/22/23 11:00 11:06 16:07 Temperature 98.0 F Pulse Rate 96 76 Respiratory 18 18 Rate Blood Pressure 133/65 157/78 O2 Sat by Pulse 95 95 Oximetry Medical Decision Making - Medical Decision Making Was pt. sent in by a medical professional or institution (NARDA Wilhelm, PRESIDENT, urgent care, hospital, or senior care...) When possible be specific @ -No Did you speak to anyone other than the patient for history (EMS, parent, family, police, friend...)? What history was obtained from this source @ -No Did you review nursing and triage notes (agree or disagree)? Why? @ -I reviewed and agree with nursing and triage notes Were old charts reviewed (outside hosp., previous admission, EMS record, old EKG, old radiological studies, urgent care reports/EKG's, senior care records)? Report findings @ -No old charts were reviewed Differential Diagnosis (chest pain, altered mental status, abdominal pain women, abdominal pain men, vaginal bleeding, weakness, fever, dyspnea, syncope, headache, dizziness, GI bleed, back pain, seizure, CVA, palpatations, mental health, musculoskeletal)? @ -Acute fracture, traumatic brain injury/hemorrhage. MRSA. This is not meant to be an all-inclusive list. EKG interpreted by me (3pts min.). @ -As above X-rays interpreted by me (1pt min.). @ -X-ray of the pelvis and chest showed no acute process. CT interpreted by me (1pt min.). @ -CT of thoracic spine, head and cervical spine showed no acute process. U/S interpreted by me (1pt. min.). @ -None done What testing was considered but not performed or refused? (CT, X-rays, U/S, labs)? Why? @ -None What meds were considered but not given or refused? Why? @ -None Did you discuss the management of the patient with other professionals (professionals i.e. NARDA Wilhelm, PRESIDENT, lab, RT, psych nurse, social security assessor, hardware supplies sales representative, teacher, fire information officer, pillowcase folder)? Give summary @ -Spoke to Dr. George, who accepted admission Was smoking cessation discussed for >3mins.? @ -No Was critical care preformed (if so, how long)? @ -No Were there social determinants of health that impacted care today? How? (Homelessness, low income, unemployed, alcoholism, drug addiction, transpor tation, low edu. Level, literacy, decrease access to med. care, prison, rehab)? @ -No Was there de-escalation of care discussed even if they declined (Discuss DNR or withdrawal of care, Hospice)? DNR status @ -No What co-morbidities impacted this encounter? (DM, HTN, Smoking, COPD, CAD, Cancer, CVA, ARF, Chemo, Hep., AIDS, mental health diagnosis, sleep apnea, morbid obesity)? @ -None Was patient admitted / discharged? Hospital course, mention meds given and route, prescriptions, significant lab abnormalities, going to OR and other pertinent info. @ -Admitted. Imaging studies as above. Laboratory studies significant for UA showing UTI, otherwise unremarkable. Spoke to patient who has concerns about going home. States that he is falling frequently over the past 2 days and notes he is afraid that if he is sent home me fall again. Patient will be admitted to observation with consult to PT/OT and pillowcase folder for placement into rehab facility. Additionally with chronic cellulitis consult to infectious disease. Patient started on Bactrim here in the ED. Discussed plan of care with patient who verbalizes agreement. Undiagnosed new problem with uncertain prognosis? @ -No Drug Therapy requiring intensive monitoring for toxicity (Heparin, Nitro, Insulin, Cardizem)? @ -No Were any procedures done? @ -No Diagnosis/symptom? @ -Frequent falls, cellulitis Acute, or Chronic, or Acute on Chronic? @ -Acute Uncomplicated (without systemic symptoms) or Complicated (systemic symptoms)? @ -Uncomplicated Side effects of treatment? @ -No Exacerbation, Progression, or Severe Exacerbation? @ -No Poses a threat to life or bodily function? How? (Chest pain, USA, ME, pneumonia, PE, COPD, DKA, ARF, appy, cholecystitis, CVA, Diverticulitis, Homicidal, Suicidal, threat to staff... and all critical care pts) @ -No - Lab Data Result diagrams: 04/22/23 12:07 04/22/23 13:28 Lab Results 04/22/23 04/22/23 04/22/23 Range/Units 12:07 12:07 13:28 WBC 11.4 H (3.8-10.6) k/uL RBC 4.32 (4.30-5.90) m/uL Hgb 13.4 (13.0-17.5) gm/dL Hct 40.6 (39.0-53.0) % MCV 94.0 (80.0-100.0) fL MCH 31.0 (25.0-35.0) pg MCHC 33.0 (31.0-37.0) g/dL RDW 13.4 (11.5-15.5) % Plt Count 227 (150-450) k/uL MPV 8.1 Neutrophils % 81 % Lymphocytes % 11 % Monocytes % 6 % Eosinophils % 1 % Basophils % 0 % Neutrophils # 9.2 H (1.3-7.7) k/uL Lymphocytes # 1.2 (1.0-4.8) k/uL Monocytes # 0.7 (0-1.0) k/uL Eosinophils # 0.1 (0-0.7) k/uL Basophils # 0.0 (0-0.2) k/uL Sodium 142 (137-145) mmol/L Potassium 4.2 (3.5-5.1) mmol/L Chloride 107 (98-107) mmol/L Carbon Dioxide 25 (22-30) mmol/L Anion Gap 10 mmol/L BUN 39 H (9-20) mg/dL Creatinine 1.67 H (0.66-1.25) mg/dL Est GFR (CKD-EPI)AfAm 43 (>60 ml/min/1.73 sqM) Est GFR (CKD-EPI)NonAf 37 (>60 ml/min/1.73 sqM) Glucose 115 H (74-99) mg/dL Calcium 8.8 (8.4-10.2) mg/dL Total Bilirubin 1.3 (0.2-1.3) mg/dL AST 51 (17-59) U/L ALT 53 H (4-49) U/L Alkaline Phosphatase 62 (38-126) U/L Troponin I (0.000-0.034) ng/mL Total Protein 7.9 (6.3-8.2) g/dL Albumin 4.2 (3.5-5.0) g/dL Urine Color Yellow Urine Appearance Clear (Clear) Urine pH 5.5 (5.0-8.0) Ur Specific [place] 1.018 (1.001-1.035) Urine Protein Trace H (Negative) Urine Glucose (UA) Negative (Negative) Urine Ketones 1+ H (Negative) Urine Blood Small H (Negative) Urine Nitrite Negative (Negative) Urine Bilirubin Negative (Negative) Urine Urobilinogen <2.0 (<2.0) mg/dL Ur Leukocyte Esterase Moderate H (Negative) Urine RBC 1 (0-5) /hpf Urine WBC 11 H (0-5) /hpf Ur Squamous Epith Cells 2 (0-4) /hpf Urine Mucus Rare H (None) /hpf 04/22/23 Range/Units 13:30 WBC (3.8-10.6) k/uL RBC (4.30-5.90) m/uL Hgb (13.0-17.5) gm/dL Hct (39.0-53.0) % MCV (80.0-100.0) fL MCH (25.0-35.0) pg MCHC (31.0-37.0) g/dL RDW (11.5-15.5) % Plt Count (150-450) k/uL MPV Neutrophils % % Lymphocytes % % Monocytes % % Eosinophils % % Basophils % % Neutrophils # (1.3-7.7) k/uL Lymphocytes # (1.0-4.8) k/uL Monocytes # (0-1.0) k/uL Eosinophils # (0-0.7) k/uL Basophils # (0-0.2) k/uL Sodium (137-145) mmol/L Potassium (3.5-5.1) mmol/L Chloride (98-107) mmol/L Carbon Dioxide (22-30) mmol/L Anion Gap mmol/L BUN (9-20) mg/dL Creatinine (0.66-1.25) mg/dL Est GFR (CKD-EPI)AfAm (>60 ml/min/1.73 sqM) Est GFR (CKD-EPI)NonAf (>60 ml/min/1.73 sqM) Glucose (74-99) mg/dL Calcium (8.4-10.2) mg/dL Total Bilirubin (0.2-1.3) mg/dL AST (17-59) U/L ALT (4-49) U/L Alkaline Phosphatase (38-126) U/L Troponin I <0.012 (0.000-0.034) ng/mL Total Protein (6.3-8.2) g/dL Albumin (3.5-5.0) g/dL Urine Color Urine Appearance (Clear) Urine pH (5.0-8.0) Ur Specific [place] (1.001-1.035) Urine Protein (Negative) Urine Glucose (UA) (Negative) Urine Ketones (Negative) Urine Blood (Negative) Urine Nitrite (Negative) Urine Bilirubin (Negative) Urine Urobilinogen (<2.0) mg/dL Ur Leukocyte Esterase (Negative) Urine RBC (0-5) /hpf Urine WBC (0-5) /hpf Ur Squamous Epith Cells (0-4) /hpf Urine Mucus (None) /hpf - EKG Data EKG Comments: EKG shows a sinus rhythm with a first degree block with a OH interval at 227 ms. A 4 bpm, QRS 132, QT/QTc 426/467. No acute ST-T wave changes. Disposition Clinical Impression: Fall, Cellulitis Disposition: ADMITTED IP TO THIS [facility] Time of Disposition: 16:45
--- NOTE | 2023-04-22 12:09 | XR ---
EXAMINATION TYPE: XR pelvis AP view DATE OF EXAM: 04/22/2023 12:05 PM INDICATION: Patient age:Male; 83 years old; Reason for study: s/p fall; COMPARISON: 07/07/2018. TECHNIQUE: The pelvis was examined in a single projection. FINDINGS: Bilateral hip arthroplasties, hardware appears intact. A vascular stent projects over the r ight lower spine/sacrum.. There is no evidence of fracture or dislocation. There is no soft tissue ab normality. No abnormal calcifications are present. The spine appears intact. IMPRESSION: No acute osseous pathology.
--- NOTE | 2023-04-22 12:09 | XR ---
EXAMINATION TYPE: XR chest 1V DATE OF EXAM: 04/22/2023 12:03 PM COMPARISON: Chest radiographs from02/05/2022 TECHNIQUE: Frontal view of the chest. CLINICAL INDICATION:Male, 83 years old with history of midline thoracic pain; FINDINGS: Lungs/Pleura: There is no evidence of pleural effusion, focal consolidation, or pneumothorax. Pulmonary vascularity: Unremarkable. Heart/mediastinum: Cardiomediastinal silhouette is unremarkable. Musculoskeletal: No acute osseous pathology. IMPRESSION: No acute cardiopulmonary disease/process.
--- NOTE | 2023-04-22 12:39 | CT ---
EXAMINATION TYPE: CT brain cspine wo con DATE OF EXAM: 04/22/2023 COMPARISON: 01/10/2022 and 12/31/2021 HISTORY: 83-year-old male Pain from fall CT DLP: 2010.5 mGycm Automated exposure control for dose reduction was used. Technique: Examination of the head was done in axial plane without intravenous contrast. Coronal and sagittal reconstructions performed. CT of the cervical spine was obtained in axial plane without intravenous injection of contrast mater ial. Coronal and sagittal reformatted images were obtained from the axial views for evaluation of f ractures, spinal alignment and canal. FINDINGS: Head: Metal artifact from prior plate covering the right lateral linda hole. Confluent white matter hypodensities in both cerebral hemispheres redemonstrated. Mild central cerebr al volume loss with secondary prominence to the ventricular system is unchanged. Mild atherosclerotic calcifications in the carotid siphons. There is no evidence of acute intracranial hemorrhage, acute ischemic changes, mass, mass-effect, or extra-axial fluid collection. There is no effacement of cerebral sulci or basal subarachnoid cister ns. There is no midline shift. Davila-white matter distinction is preserved. Moderate to severe mucosal thickening right sphenoid sinus. There is some frothy opacification within the echo represent a superimposed acute sinusitis. Mild mucosal thickening ethmoid air cells and rig htward nasal septal deviation. Globes are intact. Cervical spine: Possible underlying 3.0 cm nodule left lobe of the thyroid gland which is present previously as well. This can be further evaluated with thyroid ultrasound if indicated. No craniocervical junction anomaly, predental space widening, or prevertebral soft tissue swelling. Scattered mild spondylotic change. No acute fracture or malalignment of the cervical spine. There is some-extending from C7 to T3 levels with bridging anterior endplate spondylosis. Sagittal and coronal reformatted images confirm above findings. COMBINED IMPRESSION: 1. Similar mild central cerebral atrophy and severe confluent burden of chronic small vessel ischemic disease. No acute intracranial abnormality seen. 2. No acute fracture or malalignment of the cervical spine. 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 3. Possible acute on chronic right sphenoid sinusitis. Correlate for any symptoms.
--- NOTE | 2023-04-22 12:46 | CT ---
EXAMINATION TYPE: CT thoracic spine wo con DATE OF EXAM: 04/22/2023 COMPARISON: None HISTORY: 83-year-old male with midline back pain TECHNIQUE: Contiguous axial scanning of the thoracic spine without IV contrast. Coronal and sagittal reconstructions performed. CT DLP: 3354 mGycm Automated exposure control for dose reduction was used. FINDINGS: Disc from C7 down to T3. Additional dish from T4 down to L1. There is no acute fracture or malalignment identified. Osteopenia. Cystic-appearing structure at the inferior pancreatic head remains unchanged back to 04/12/2019. This c ould represent a benign pancreatic cyst versus a duodenal diverticulum.. IMPRESSION: DISH FROM C7 THROUGH T3. ADDITIONAL DISH FROM T4 DOWN THROUGH L1. NO ACUTE FRACTURE OR MALALIGNMENT S EEN.
[2023-04-22 13:10] LABS: Basophils % (A) 0 %; Eosinophils # (A) 0.1 k/uL (0-0.7); Eosinophils % (A) 1 %; HCT 40.6 % (39.0-53.0); HGB 13.4 gm/dL (13.0-17.5); Lymphocytes # (A) 1.2 k/uL (1.0-4.8); Lymphocytes % (A) 11 %; Mean Platelet Volume 8.1; Monocytes # (A) 0.7 k/uL (0-1.0); Monocytes % (A) 6 %; Neutrophils # (A) 9.2 k/uL (1.3-7.7); Neutrophils % (A) 81 %; Platelet Count 227 k/uL (150-450); RBC 4.32 m/uL (4.30-5.90); RDW 13.4 % (11.5-15.5); WBC 11.4 k/uL (3.8-10.6)
[2023-04-22 14:20] LABS: ALT 53 U/L (4-49); AST 51 U/L (17-59); African American GFR (CKD) 43 (>60 ml/min/1.73 sqM); Albumin 4.2 g/dL (3.5-5.0); Alkaline Phosphatase 62 U/L (38-126); Anion Gap 10 mmol/L; Blood Urea Nitrogen 39 mg/dL (9-20); Calcium 8.8 mg/dL (8.4-10.2); Carbon Dioxide 25 mmol/L (22-30); Chloride 107 mmol/L (98-107); Glucose 115 mg/dL (74-99); Non-African American GFR(CKD) 37 (>60 ml/min/1.73 sqM); Potassium 4.2 mmol/L (3.5-5.1); Sodium 142 mmol/L (137-145); Total Bilirubin 1.3 mg/dL (0.2-1.3); Total Protein 7.9 g/dL (6.3-8.2)
[2023-04-22] MEDS ORDERED: MORPHINE SULFATE 4 MG/ML SYRINGE IVP STA (15:51)
[2023-04-22 16:10] LABS: Appearance,Urine Clear (Clear); Bilirubin,Urine Negative (Negative); Blood,Urine Small (Negative); Color,Urine Yellow; Glucose,Urine (UA) Negative (Negative); Ketones,Urine 1+ (Negative); Leukocyte Esterase,Urine Moderate (Negative); Mucus,Urine Rare /hpf; Nitrite,Urine Negative (Negative); PH, Urine 5.5 (5.0-8.0); Protein,Urine Trace (Negative); RBC,Urine 1 /hpf (0-5); Specific Gravity,Urine 1.018 (1.001-1.035); Squamous Epithelial Cell,Urine 2 /hpf (0-4); Urobilinogen,Urine <2.0 mg/dL (<2.0); WBC,Urine 11 /hpf (0-5)
[2023-04-22] MEDS ORDERED: HYDROmorphone 1 MG/ML 1 ML SYRINGE IVP PRN (16:15)
[2023-04-22] MEDS ORDERED: KETOROLAC 15 MG/ML 1 ML VIAL IVP PRN (16:15)
[2023-04-22] MEDS ORDERED: ACETAMINOPHEN TAB 325 MG TAB PO PRN (16:15)
[2023-04-22] MEDS ORDERED: NALOXONE 0.4 MG/ML 1 ML VIAL IV PRN (16:15)
[2023-04-22] MEDS ORDERED: ONDANSETRON 4 MG/2 ML VIAL IVP PRN (16:15)
[2023-04-22] MEDS ORDERED: SULFAMETHOX-TMP 800-160MG 1 EACH TAB PO STA (16:21)
[2023-04-22] MEDS: SODIUM CHLORIDE 0.9% 1,000 ML IV SCH (16:51)
--- NOTE | 2023-04-22 18:18 | P.HPIM ---
History of Present Illness H&P Date: 04/22/23 Chief Complaint: generalized weakness, fall 83-year-old man with a history of hypertension, hyperlipidemia, diabetes with peripheral neuropathy, asthma, BPH presented for generalized weakness and fall. Patient lives at home and does not have any help, appears generally disheveled, and does not seem to be taking care of himself well. Apparently he has had falls at home from what he perceives to be his "cellulitis". Patient reports she's had the cellulitis for several years and every now and then he feels like it prevents him from putting weight on both extremities which causes him to fall. He had a fall today and came to the emergency room for further evaluation. Patient denies fevers, chills, nausea, vomiting, chest pain, palpitations, cough, dyspnea, abdominal pain, constipation, diarrhea, dysuria, dyschezia, numbness/weakness of extremity. He does report lower extremity paresthesias. In the emergency room, patient was afebrile, 133/65, heart rate 96, 95% on room air. CBC showed leukocytosis of 11.4. Basic metabolic panel showed BUN of 39, creatinine 1.67, baseline creatinine is 1.1. Liver function test showed mild elevation of ALT 53, otherwise unremarkable. Initial troponin was less than 0.012. UA showed trace protein, 1+ ketones, small amount of blood, small amount of leukocyte esterase, 11 white blood cells. Chest x-ray shows clear parenchyma bilaterally, borderline cardiomegaly, no evidence of vascular congestion. Pelvis x-rays negative for fracture. Head and cervical spine CT showed mild central cerebral atrophy and severe confluent burden of chronic small vessel disease, but no acute fractures. 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 EKG showed sinus rhythm with first-degree AV block, left axis deviation, no evidence of ischemia. Case was discussed with the emergency room provider and decision was made to admit the patient to observation for generalized weakness and falls. All Systems reviewed and pertinent positives and negatives noted in HPI, all other symptoms are negative Gen: in no apparent distress, resting comfortably in bed Eyes: PERRL, no scleral injection or icterus HENT: normocephalic, atraumatic, good hearing acuity, moist mucous membranes Neck: no tracheal deviation, full range of motion Resp: good air exchange, breathing comfortably with no accessory muscle use, no tactile fremitus CVS: good distal perfusion x 4, no pitting edema GI: soft, NTTP, ND, no hepatosplenomegaly : no suprapubic tenderness, no CVAT, swan catheter not present MSK: no clubbing, no cyanosis, no noted contractures of extremities Skin: no noted rashes, petechiae; temperature of skin is appropriate Neuro: moving all extremities without signs of weakness, CN II-XII intact Psych: cooperative, euthymic mood, insight and judgment intact Labs and imaging as above Assessment: Generalized weakness Fall at home Hypertension Hyperlipidemia Diabetes with peripheral neuropathy Asthma without exacerbation BPH Plan: Vital signs reviewed and noted in the HPI Lab work reviewed and noted in the HPI EKG and CXR are personally interpreted and noted in the HPI Pelvis x-ray, CT of the head, C-spine, T-spine were reviewed and noted in HPI Case was discussed with the Emergency Room provider and decision was made to admit the patient for generalized weakness, fall Orthostatics twice a day IV fluids PT consult We'll resume home medications pending medication history Patient is full code Past Medical History Past Medical History: Asthma, Cancer, Hyperlipidemia, Hypertension, Osteoarthritis (OA), Sleep Apnea/CPAP/BIPAP Additional Past Medical History / Comment(s): cpap, fell in october 2013 and fractured left hip, periodontal infection that delayed hip surgery. blisters on cami legs wrapped-cl home care monitors History of Any Multi-Drug Resistant Organisms: VRE Date of last positivie culture/infection: 02/06/22 VRE MDRO Source:: Urine Past Surgical History: Cholecystectomy, Joint Replacement, Orthopedic Surgery Additional Past Surgical History / Comment(s): brain tumor removed as a teen, cami hip replacement Past Anesthesia/Blood Transfusion Reactions: No Reported Reaction Additional Past Anesthesia/Blood Transfusion Reaction / Comment(s): very severe sleep apnea per patient Past Psychological History: Anxiety, Depression Smoking Status: Former smoker Past Alcohol Use History: None Reported Past Drug Use History: None Reported - Past Family History Brother(s) Family Medical History: Cancer Additional Family Medical History / Comment(s): kidney,liver Medications and Allergies Home Medications Medication Instructions Recorded Confirmed Type PARoxetine HCL [Paxil] 40 mg PO DAILY 06/08/14 02/05/22 History Folic Acid 1 mg PO HS 07/12/21 02/05/22 History Tamsulosin [Flomax] 0.4 mg PO HS 07/12/21 02/05/22 History Torsemide [Demadex] 20 mg PO DAILY 07/12/21 02/05/22 History Atorvastatin [Lipitor] 40 mg PO HS 12/31/21 02/05/22 History Clopidogrel [Plavix] 75 mg PO HS 12/31/21 02/05/22 History Cholecalciferol [Vitamin D3 (125 125 mcg PO DAILY 14 Days #14 tablet 01/16/22 02/05/22 Rx Mcg = 5000 Iu)] Acetaminophen [Acetaminophen ER] 650 mg PO Q4H PRN 02/05/22 02/05/22 History Ammonium Lactate Cream [Lac-Hydrin 1 applic TOPICAL BID 02/05/22 02/05/22 History 12% Cream] Ascorbic Acid [Vitamin C] 250 mg PO DAILY 02/05/22 02/05/22 History Melatonin 3 mg PO HS 02/05/22 02/05/22 History Zinc Sulfate [Orazinc] 220 mg PO HS 02/05/22 02/05/22 History lisinopriL [Zestril] 5 mg PO DAILY 02/05/22 02/05/22 History metFORMIN HCL [Glucophage] 500 mg PO DAILY@1600 02/05/22 02/05/22 History Allergies Allergy/AdvReac Type Severity Reaction Status Date / Time Penicillins Allergy Rash/Hives Verified 04/22/23 11:06 Physical Exam Osteopathic Statement: *. No significant issues noted on an osteopathic structural exam other than those noted in the History and Physical/Consult. Vitals: Vital Signs Temp Pulse Resp BP Pulse Ox 04/22/23 16:07 76 18 157/78 95 04/22/23 11:06 98.0 F 04/22/23 11:00 96 18 133/65 95 Intake and Output 04/22/23 04/22/23 04/22/23 06:59 14:59 22:59 Other: Weight 104.326 kg Results CBC & Chem 7: 04/22/23 12:07 04/22/23 13:28 Labs: Abnormal Lab Results - Last 24 Hours (Table) 04/22/23 04/22/23 04/22/23 Range/Units 12:07 12:07 13:28 WBC 11.4 H (3.8-10.6) k/uL Neutrophils # 9.2 H (1.3-7.7) k/uL BUN 39 H (9-20) mg/dL Creatinine 1.67 H (0.66-1.25) mg/dL Glucose 115 H (74-99) mg/dL ALT 53 H (4-49) U/L Urine Protein Trace H (Negative) Urine Ketones 1+ H (Negative) Urine Blood Small H (Negative) Ur Leukocyte Esterase Moderate H (Negative) Urine WBC 11 H (0-5) /hpf Urine Mucus Rare H (None) /hpf
[2023-04-22] MEDS ORDERED: HYDROmorphone 0.5 MG/0.5 ML SYRINGE IVP PRN (18:41)
[2023-04-23] MEDS: HYDROmorphone 1 MG/ML 1 ML SYRINGE IVP PRN (00:05)
[2023-04-23] MEDS: SODIUM CHLORIDE 0.9% 1,000 ML IV SCH ×4 (00:06→20:28)
--- NOTE | 2023-04-23 12:07 | P.PN ---
Subjective Progress Note Date: 04/23/23 Patient has no new complaints today Gen: awake, alert HEENT: normocephalic, atraumatic, good hearing acuity, moist mucous membranes Resp: good air exchange, breathing comfortably with no accessory muscle use CVS: good distal perfusion x 4, GI: soft, NTTP, ND : no SPT, no CVAT, swan catheter not present MSK: no pitting edema, no clubbing Neuro: non-focal, moving all extremities Psych: cooperative, euthymic mood Hospital course: 83-year-old man with a history of hypertension, hyperlipidemia, diabetes with peripheral neuropathy, asthma, BPH presented for generalized weakness and fall. n the emergency room, patient was afebrile, 133/65, heart rate 96, 95% on room air. CBC showed leukocytosis of 11.4. Basic metabolic panel showed BUN of 39, creatinine 1.67, baseline creatinine is 1.1. Liver function test showed mild elevation of ALT 53, otherwise unremarkable. Initial troponin was less than 0.012. UA showed trace protein, 1+ ketones, small amount of blood, small amount of leukocyte esterase, 11 white blood cells. Chest x-ray shows clear parenchyma bilaterally, borderline cardiomegaly, no evidence of vascular congestion. Pelvis x-rays negative for fracture. Head and cervical spine CT showed mild central cerebral atrophy and severe confluent burden of chronic small vessel disease, but no acute fractures. 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 EKG showed sinus rhythm with first- degree AV block, left axis deviation, no evidence of ischemia. Case was discussed with the emergency room provider and decision was made to admit the patient to observation for generalized weakness and falls. Assessment: Generalized weakness Fall at home Hypertension Hyperlipidemia Diabetes with peripheral neuropathy Asthma without exacerbation BPH Plan: Today, patient is afebrile, 146/71, heart rate 74, 98% on room air Orthostatics twice a day IV fluids PT consult We'll resume home medications pending medication history Patient is full code Objective - Vital Signs Vital signs: Vital Signs Temp 98.2 F 04/23/23 07:54 Pulse 74 04/23/23 07:54 Resp 17 04/23/23 07:54 BP 146/71 04/23/23 07:54 Pulse Ox 98 04/23/23 07:54 FiO2 Intake & Output 04/22/23 04/23/23 04/23/23 18:59 06:59 18:59 Weight 104.326 kg 104.326 kg - Labs CBC & Chem 7: 04/22/23 12:07 04/22/23 13:28 Labs: Abnormal Lab Results - Last 24 Hours (Table) 04/22/23 04/22/23 04/22/23 Range/Units 12:07 12:07 13:28 WBC 11.4 H (3.8-10.6) k/uL Neutrophils # 9.2 H (1.3-7.7) k/uL BUN 39 H (9-20) mg/dL Creatinine 1.67 H (0.66-1.25) mg/dL Glucose 115 H (74-99) mg/dL ALT 53 H (4-49) U/L Urine Protein Trace H (Negative) Urine Ketones 1+ H (Negative) Urine Blood Small H (Negative) Ur Leukocyte Esterase Moderate H (Negative) Urine WBC 11 H (0-5) /hpf Urine Mucus Rare H (None) /hpf
[2023-04-23] MEDS: Acetaminophen-Codeine 300-30mg TAB PO PRN (14:06)
[2023-04-23] MEDS: TORSEMIDE 20 MG TAB PO SCH (14:06)
[2023-04-23] MEDS: ASPIRIN 81 MG PO SCH (14:06)
[2023-04-23] MEDS ORDERED: TAMSULOSIN 0.4 MG CAP.ER.24H PO SCH (21:00)
[2023-04-23] MEDS ORDERED: FOLIC ACID 1 MG TAB PO SCH (21:00)
[2023-04-23] MEDS ORDERED: CLOPIDOGREL 75 MG TAB PO SCH (21:00)
[2023-04-23] MEDS ORDERED: ATORVASTATIN 20 MG TAB PO SCH (21:00)
--- NOTE | 2023-04-23 22:28 | P.CONS ---
History of Present Illness - Reason for Consult Consult date: 04/23/23 - History of Present Illness Patient is a 83-year-old male with a past medical history being for diabetes mellitus with peripheral neuropathy hypertension hyperlipidemia presented hospital as weakness and fall patient apparently did have a history of recurrent cellulitis and the patient has been complaining of increasing swelling to the lower extremity and also mentioning having redness to both legs with concerning for cellulitis patient was complaining of some dull aching pain to the leg mild to moderate intensity did not have an open wound or any drainage patient denies any fever and no fever was reported during this hospital stay patient did have a white count of 11.4 with a left shift BUN/creatinine was mildly elevated urine was mildly positive however it is very hard to get any urinary symptoms from this patient patient did have a chest x-ray no acute cardiopulmonary disease, patient was admitted to the hospital with consult to infectious disease regarding chronic cellulitis and need for antibiotic therapy Past Medical History Past Medical History: Asthma, Cancer, Hyperlipidemia, Hypertension, Osteoarthritis (OA), Sleep Apnea/CPAP/BIPAP Additional Past Medical History / Comment(s): cpap, fell in october 2013 and fractured left hip, periodontal infection that delayed hip surgery. 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 He has a couple of walkers but does not usually use them. He states he drives. Smoking Status: Former smoker Past Alcohol Use History: None Reported Additional Past Alcohol Use History / Comment(s): Pt started smoking cigars in 3 and quit smoking them in 1998 Past Drug Use History: None Reported - Past Family History Brother(s) Family Medical History: Cancer Additional Family Medical History / Comment(s): kidney,liver Medications and Allergies Home Medications Medication Instructions Recorded Confirmed Type PARoxetine HCL [Paxil] 40 mg PO DAILY 06/08/14 04/23/23 History Folic Acid 1 mg PO HS 07/12/21 04/23/23 History Tamsulosin [Flomax] 0.4 mg PO HS 07/12/21 04/23/23 History Torsemide [Demadex] 20 mg PO DAILY 07/12/21 04/23/23 History Clopidogrel [Plavix] 75 mg PO HS 12/31/21 04/23/23 History metFORMIN HCL [Glucophage] 500 mg PO W/SUPPER 02/05/22 04/23/23 History Acetaminophen-Codeine 300-30mg 1 tab PO BID PRN 04/23/23 04/23/23 History [Tylenol w/codeine #3] Aspirin EC [Ecotrin Low Dose] 81 mg PO DAILY 04/23/23 04/23/23 History Atorvastatin [Lipitor] 20 mg PO HS 04/23/23 04/23/23 History Ergocalciferol [Vitamin D2 (1250 1,250 mcg PO Q7D 04/23/23 04/23/23 History Mcg = 42283 Iu)] lisinopriL 2.5 mg PO DAILY 04/23/23 04/23/23 History Allergies Allergy/AdvReac Type Severity Reaction Status Date / Time Penicillins Allergy Rash/Hives Verified 04/22/23 19:58 Physical Exam Vitals: Vital Signs Temp Pulse Pulse Resp BP BP Pulse Ox 04/23/23 07:54 98.2 F 74 17 146/71 98 04/23/23 06:04 98.3 F 73 16 137/63 95 04/23/23 00:01 98.0 F 80 18 138/78 96 04/22/23 18:27 98.1 F 76 16 142/82 95 04/22/23 16:07 76 18 157/78 95 Intake and Output 04/22/23 04/23/23 04/23/23 22:59 06:59 14:59 Other: Weight 104.326 kg Results CBC & Chem 7: 04/22/23 12:07 04/22/23 13:28 Labs: Abnormal Lab Results - Last 24 Hours (Table) 04/22/23 04/22/23 04/22/23 Range/Units 12:07 12:07 13:28 WBC 11.4 H (3.8-10.6) k/uL Neutrophils # 9.2 H (1.3-7.7) k/uL BUN 39 H (9-20) mg/dL Creatinine 1.67 H (0.66-1.25) mg/dL Glucose 115 H (74-99) mg/dL ALT 53 H (4-49) U/L Urine Protein Trace H (Negative) Urine Ketones 1+ H (Negative) Urine Blood Small H (Negative) Ur Leukocyte Esterase Moderate H (Negative) Urine WBC 11 H (0-5) /hpf Urine Mucus Rare H (None) /hpf Assessment and Plan Plan: 1patient presented hospitalized with conditions likely multifactorial patient has been complaining of some swelling redness lower extremity patient was noticed to have some chronic venous stasis dermatitis picture to the lower extremity but no evidence of any active cellulitis there was no redness no warmth patient did not have any fever and white count is not significant elevated 2-we will recommend Enmanuel wrap to the leg to keep the swelling down 3-no need for systemic antibiotic therapy We will follow on clinical condition and cultures to further adjust medication if needed Thank you for this consultation we will follow the patient along with you Time with Patient: Greater than 30
[2023-04-24] MEDS: HYDROmorphone 1 MG/ML 1 ML SYRINGE IVP PRN (03:18)
[2023-04-24] MEDS: TORSEMIDE 20 MG TAB PO SCH (08:06)
[2023-04-24] MEDS: ASPIRIN 81 MG PO SCH (08:07)
[2023-04-24 08:46] VITALS: RESP 18
[2023-04-24] MEDS ORDERED: PARoxetine 20 MG TAB PO SCH (09:00)
--- NOTE | 2023-04-24 10:57 | P.DS ---
Providers Date of admission: 04/22/23 16:15 Expected date of discharge: 04/24/23 Attending physician: Arun George MD Consults: 04/22/23 16:15 Consult Physician Urgent Consulting Provider: Leon Robbins Consult Reason/Comments: Chronic cellulitis Do you want consulting provider notified?: Yes Primary care physician: [facility] Course: Assessment: Generalized weakness Fall at home Hypertension Hyperlipidemia Diabetes with peripheral neuropathy Asthma without exacerbation BPH Hospital course: 83-year-old man with a history of hypertension, hyperlipidemia, diabetes with peripheral neuropathy, asthma, BPH presented for generalized weakness and fall. n the emergency room, patient was afebrile, 133/65, heart rate 96, 95% on room air. CBC showed leukocytosis of 11.4. Basic metabolic panel showed BUN of 39, creatinine 1.67, baseline creatinine is 1.1. Liver function test showed mild elevation of ALT 53, otherwise unremarkable. Initial troponin was less than 0.012. UA showed trace protein, 1+ ketones, small amount of blood, small amount of leukocyte esterase, 11 white blood cells. Chest x-ray shows clear parenchyma bilaterally, borderline cardiomegaly, no evidence of vascular congestion. Pelvis x-rays negative for fracture. Head and cervical spine CT showed mild central cerebral atrophy and severe confluent burden of chronic small vessel disease, but no acute fractures. 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 EKG showed sinus rhythm with first- degree AV block, left axis deviation, no evidence of ischemia. Case was discussed with the emergency room provider and decision was made to admit the patient to observation for generalized weakness and falls. Patient was evaluated by physical therapy, and recommendation for subacute rehabilitation was made, however, after discussing with case management, patient indicated that he would prefer going home with home physical therapy. Patient was subsequently discharged home with home care services. On the day of discharge, did discuss with him that the recommendation was for subacute rehabilitation to reduce the risk of falls and improve likelihood of remaining at home to prevent readmission. Patient to consider this, however, would prefer another trial at home. I spent 38 minutes coordinating this discharge on 04/24 Gen: awake, alert HEENT: normocephalic, atraumatic, good hearing acuity, moist mucous membranes Resp: good air exchange, breathing comfortably with no accessory muscle use CVS: good distal perfusion x 4, GI: soft, NTTP, ND : no SPT, no CVAT, swan catheter not present MSK: no pitting edema, no clubbing Neuro: non-focal, moving all extremities Psych: cooperative, euthymic mood Patient Condition at Discharge: Fair Plan - Discharge Summary Discharge Rx Participant: No New Discharge Prescriptions: New Acetaminophen Tab [Tylenol] 650 mg PO Q6HR PRN tab PRN Reason: Mild Pain Or Fever > 100.5 Continue PARoxetine HCL [Paxil] 40 mg PO DAILY Torsemide [Demadex] 20 mg PO DAILY Folic Acid 1 mg PO HS metFORMIN HCL [Glucophage] 500 mg PO W/SUPPER Aspirin EC [Ecotrin Low Dose] 81 mg PO DAILY Tamsulosin [Flomax] 0.4 mg PO HS Clopidogrel [Plavix] 75 mg PO HS Atorvastatin [Lipitor] 20 mg PO HS lisinopriL 2.5 mg PO DAILY Acetaminophen-Codeine 300-30mg [Tylenol w/codeine #3] 1 tab PO BID PRN PRN Reason: Pain Ergocalciferol [Vitamin D2 (1250 Mcg = 00120 Iu)] 1,250 mcg PO Q7D Discharge Medication List PARoxetine HCL [Paxil] 40 mg PO DAILY 06/08/14 [History] Folic Acid 1 mg PO HS 07/12/21 [History] Tamsulosin [Flomax] 0.4 mg PO HS 07/12/21 [History] Torsemide [Demadex] 20 mg PO DAILY 07/12/21 [History] Clopidogrel [Plavix] 75 mg PO HS 12/31/21 [History] metFORMIN HCL [Glucophage] 500 mg PO W/SUPPER 02/05/22 [History] Acetaminophen-Codeine 300-30mg [Tylenol w/codeine #3] 1 tab PO BID PRN 04/23/23 [History] Aspirin EC [Ecotrin Low Dose] 81 mg PO DAILY 04/23/23 [History] Atorvastatin [Lipitor] 20 mg PO HS 04/23/23 [History] Ergocalciferol [Vitamin D2 (1250 Mcg = 50488 Iu)] 1,250 mcg PO Q7D 04/23/23 [History] lisinopriL 2.5 mg PO DAILY 04/23/23 [History] Acetaminophen Tab [Tylenol] 650 mg PO Q6HR PRN tab 04/24/23 [Rx] Follow up Appointment(s)/Referral(s): [facility], [NON-STAFF] - 1 Week Jimmy Michele DO [Primary Care Provider] - 1-2 days Discharge Disposition: HOME WITH HOME HEALTH SERVICES
[2023-04-24] MEDS: SODIUM CHLORIDE 0.9% 1,000 ML IV SCH (11:43)
[2023-04-24 15:51] VITALS: BP 100/63; PULSE 91; TEMP 98.3
[2023-04-24] MEDS: Acetaminophen-Codeine 300-30mg TAB PO PRN (16:54)
[2023-04-30] MEDS ORDERED: ERGOCALCIFEROL 1,250 MCG (50,000 IU) CAPSULE PO SCH (09:00)
== END 2023-04-24 17:10 ==
LOC: SUPCPDRO 10:57 → EC 10:57 → 6NMEDSUR 16:15
PROVIDERS: ADMIT Internal Medicine; ATTEND Internal Medicine
DX: R53.1 Weakness (principal); E11.40 Type 2 diabetes mellitus with diabetic neuropathy, unspecified; W19.XXXA Unspecified fall, initial encounter; I10 Essential (primary) hypertension; E78.5 Hyperlipidemia, unspecified; J45.909 Unspecified asthma, uncomplicated; N40.0 Benign prostatic hyperplasia without lower urinary tract symptoms; R29.6 Repeated falls; D72.829 Elevated white blood cell count, unspecified; M19.90 Unspecified osteoarthritis, unspecified site; G47.30 Sleep apnea, unspecified; S80.822D Blister (nonthermal), left lower leg, subsequent encounter; S80.821D Blister (nonthermal), right lower leg, subsequent encounter; Z86.19 Personal history of other infectious and parasitic diseases; Z98.890 Other specified postprocedural states; Z85.841 Personal history of malignant neoplasm of brain; Z87.891 Personal history of nicotine dependence; F41.9 Anxiety disorder, unspecified; F32.A Depression, unspecified; Z90.49 Acquired absence of other specified parts of digestive tract; Z96.643 Presence of artificial hip joint, bilateral; Z80.51 Family history of malignant neoplasm of kidney; Z80.0 Family history of malignant neoplasm of digestive organs; Z79.84 Long term (current) use of oral hypoglycemic drugs; Z79.02 Long term (current) use of antithrombotics/antiplatelets; Z79.899 Other long term (current) drug therapy; Z88.0 Allergy status to penicillin
CPT/HCPCS: 96376; 96361 ×4; 96374; 99285; 36415; 93005; 97530 ×2; 97162; 97535; 97166; 80053; 84484; 85025; 81001; 72170; 71045; 72128; 72125; 70450; G0378 ×3; J2270; J1170 ×3

== ENCOUNTER 2024-07-06 03:12 | Inpatient (IN) | payer MEDICARE, OTHER ==
--- NOTE | 2024-07-06 03:46 | ED ---
General Adult HPI - General Chief complaint: Fall Stated complaint: Spinal Fracture Time Seen by Provider: 07/06/24 03:15 Source: patient, EMS, RN notes reviewed, old records reviewed Mode of arrival: EMS Limitations: no limitations - History of Present Illness Initial comments: 84-year-old male transfer from [place] for evaluation of thoracic spine fr acture after fall. Patient states that approximately 4 PM he was walking in a parking lot, fell onto his back. He denies head or neck trauma. Denies extremity injury. Patient reports pain in the middle of his back. He denies numbness or tingling to the legs. He was seen at [facility] where CT was ordered and showed endplate fracture of T9 and T10. It was recommended that the patient be transferred to this institution for evaluation by orthopedics and for pain control. - Related Data Home Medications Medication Instructions Recorded Confirmed PARoxetine HCL [Paxil] 40 mg PO DAILY 06/08/14 04/23/23 Folic Acid 1 mg PO HS 07/12/21 04/23/23 Tamsulosin [Flomax] 0.4 mg PO HS 07/12/21 04/23/23 Torsemide [Demadex] 20 mg PO DAILY 07/12/21 04/23/23 Clopidogrel [Plavix] 75 mg PO HS 12/31/21 04/23/23 metFORMIN HCL [Glucophage] 500 mg PO W/SUPPER 02/05/22 04/23/23 Aspirin EC [Ecotrin Low Dose] 81 mg PO DAILY 04/23/23 04/23/23 Atorvastatin [Lipitor] 20 mg PO HS 04/23/23 04/23/23 Ergocalciferol [Vitamin D2 (1250 1,250 mcg PO Q7D 04/23/23 04/23/23 Mcg = 13422 Iu)] lisinopriL 2.5 mg PO DAILY 04/23/23 04/23/23 Previous Rx's Medication Instructions Recorded Acetaminophen Tab [Tylenol] 650 mg PO Q6HR PRN tab 04/24/23 Acetaminophen-Codeine 300-30mg 1 tab PO BID PRN #6 tab 04/24/23 [Tylenol w/codeine #3] Allergies Allergy/AdvReac Type Severity Reaction Status Date / Time Penicillins Allergy Rash/Hives Verified 04/22/23 19:58 Review of Systems ROS Statement: Those systems with pertinent positive or pertinent negative responses have been documented in the HPI. ROS Other: All systems not noted in ROS Statement are negative. Past Medical History Past Medical History: Asthma, Cancer, Hyperlipidemia, Hypertension, Osteoarthritis (OA), Sleep Apnea/CPAP/BIPAP Additional Past Medical History / Comment(s): cpap, fell in october 2013 and fractured left hip, periodontal infection that delayed hip surgery. 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, VRE Date of last positivie culture/infection: 02/06/22 VRE MDRO Source:: Urine Past Surgical History: Cholecystectomy, Joint Replacement, Orthopedic Surgery Additional Past Surgical History / Comment(s): brain tumor removed as a teen, cami hip replacement Past Anesthesia/Blood Transfusion Reactions: No Reported Reaction Additional Past Anesthesia/Blood Transfusion Reaction / Comment(s): very severe sleep apnea per patient Past Psychological History: Anxiety, Depression Smoking Status: Former smoker Past Alcohol Use History: None Reported Past Drug Use History: None Reported - Past Family History Brother(s) Family Medical History: Cancer Additional Family Medical History / Comment(s): kidney,liver General Exam General appearance: alert, in no apparent distress Head exam: Present: atraumatic, normocephalic Eye exam: Present: normal appearance, PERRL ENT exam: Present: normal exam Neck exam: Present: normal inspection. Absent: tenderness, meningismus Respiratory exam: Present: normal lung sounds bilaterally. Absent: respiratory distress, wheezes Cardiovascular Exam: Present: regular rate, normal rhythm GI/Abdominal exam: Present: soft. Absent: distended, tenderness Extremities exam: Present: normal inspection, normal capillary refill Neurological exam: Present: alert, oriented X3, CN II-XII intact. Absent: motor sensory deficit Skin exam: Present: warm, dry, intact Course Vital Signs 07/06/24 03:15 Temperature 97.3 F L Pulse Rate 62 Respiratory 16 Rate Blood Pressure 118/71 O2 Sat by Pulse 96 Oximetry Medical Decision Making - Medical Decision Making Was pt. sent in by a medical professional or institution (, PA, HAND SCREEN PRINTER, urgent care, hospital, or snf...) When possible be specific @ -No Did you speak to anyone other than the patient for history (EMS, parent, family, police, friend...)? What history was obtained from this source @ -No Did you review nursing and triage notes (agree or disagree)? Why? @ -I reviewed and agree with nursing and triage notes Were old charts reviewed (outside hosp., previous admission, EMS record, old EKG, old radiological studies, urgent care reports/EKG's, snf records)? Report findings @ -No old charts were reviewed Differential Musculoskeletal Muscular strain, contusion, ligament sprain, fracture, arthritis, septic arthritis, bursitis, cellulitis, muscle spasm, nerve compression, DVT, arterial occlusion, herpes zoster, electrolyte abnormality, tumor.... This is not meant to be in all inclusive list EKG interpreted by me (3pts min.). @ -As above X-rays interpreted by me (1pt min.). @ -None done CT interpreted by me (1pt min.). @ -CT from outside hospital, chest abdomen pelvis, images reviewed. Endplate fracture T9-T10 U/S interpreted by me (1pt. min.). @ -None done What testing was considered but not performed or refused? (CT, X-rays, U/S, labs)? Why? @ -None What meds were considered but not given or refused? Why? @ -None Did you discuss the management of the patient with other professionals (professionals i.e. , PA, HAND SCREEN PRINTER, lab, RT, psych nurse, social work program coordinator, entertainment lawyer, teacher, neighborhood conservation officer, case fitter)? Give summary @ [place] Was smoking cessation discussed for >3mins.? @ -No Was critical care preformed (if so, how long)? @ -No Were there social determinants of health that impacted care today? How? (Homelessness, low income, unemployed, alcoholism, drug addiction, transportation, low edu. Level, literacy, decrease access to med. care, custodial, rehab)? @ -No Was there de-escalation of care discussed even if they declined (Discuss DNR or withdrawal of care, Hospice)? DNR status @ -No What co-morbidities impacted this encounter? (DM, HTN, Smoking, COPD, CAD, Cancer, CVA, ARF, Chemo, Hep., AIDS, mental health diagnosis, sleep apnea, morbid obesity)? @ -None Was patient admitted / discharged? Hospital course, mention meds given and route, prescriptions, significant lab abnormalities, going to OR and other pertinent info. @ -Admitted for pain control and orthopedic evaluation. Admitted to orthopedics, Robbin covering for Dr. Hicks will accept admission with internal medicine on consult Undiagnosed new problem with uncertain prognosis? @ -No Drug Therapy requiring intensive monitoring for toxicity (Heparin, Nitro, Insulin, Cardizem)? @ -No Were any procedures done? @ -No Diagnosis/symptom? @ -[Thoracic spine fracture Acute, or Chronic, or Acute on Chronic? @ -Acute Uncomplicated (without systemic symptoms) or Complicated (systemic symptoms)? @ -[default Side effects of treatment? @ -No Exacerbation, Progression, or Severe Exacerbation? @ -No Poses a threat to life or bodily function? How? (Chest pain, [place], [place], pneumonia, PE, COPD, DKA, ARF, appy, cholecystitis, CVA, Diverticulitis, Homicidal, Suicidal, threat to staff... and all critical care pts) @ -Yes, thoracic spine fracture Disposition Clinical Impression: Fall, Thoracic spine fracture Disposition: ADMITTED IP TO THIS HOSP Condition: Stable Is patient prescribed a controlled substance at d/c from ED?: No Referrals: Jimmy Michele DO [Primary Care Provider] - 1-2 days Time of Disposition: 03:46
[2024-07-06] MEDS: fentaNYL (PF) 50 MCG/ML 2 ML AMP IVP STA (05:34)
[2024-07-06] MEDS ORDERED: NALOXONE 0.4 MG/ML 1 ML VIAL IV PRN (06:03)
[2024-07-06] MEDS: HYDROmorphone 0.5 MG/0.5 ML SYRINGE IVP PRN (07:48)
--- NOTE | 2024-07-06 11:22 | CT ---
EXAMINATION TYPE: CT thor lumbar spine wo con CT DLP: 1975.2 mGycm, Automated exposure control for dose reduction was used. DATE OF EXAM: 07/06/2024 10:52 AM CLINICAL INDICATION:Male, 84 years old with history of pain; Fall, back pain COMPARISON: CT of thoracic spine 04/22/2023, CT chest abdomen and pelvis 07/05/2024 TECHNIQUE: Axial images of the thoracic and lumbar spine were obtained without contrast. Coronal and sagittal reformats were performed. CT Contrast: Contrast used: none. Oral contrast used: none. FINDINGS: Thoracic: The thoracic vertebral bodies have preserved heights and alignment.DISH throughout the thoracic spin e. There is acute fracture through the anterior aspect of the skeletal hyperostosis at T9-T10 with ex tension into the anterior cortex of the T9 vertebral body and through into the inferior endplate of t he T9 vertebral body. (series 205, image 29 and 35). There is anterior widening of the T9-T10 disc sp tripp of approximately 5 mm. Intervertebral discs and osseous structures have normal appearance. I do not see any evidence of extradural defects nor significant spinal canal narrowing at any thoraci c vertebral body level. Partial visualization of left thyroid 2.1 cm hypodense nodule with peripheral calcification. Previous ly seen. Right lower lobe subsegmental linear atelectasis. Lumbar: Alignment: There are 5 lumbar type vertebral bodies within normal alignment. Bone: No evidence of fracture is identified. Hypertrophic change of the anterior vertebral bodies. D egenerative changes both SI joints. Discs: Vacuum disc disease identified at L4-L5. T12-L1: No spinal canal or neural foraminal stenosis is identified. L1-L2: No spinal canal or neural foraminal stenosis is identified. L2-L3: No spinal canal or neural foraminal stenosis is identified. L3-L4: Broad-based disc bulge with bilateral facet arthropathy and ligamentum flavum buckling contrib uting to mild central canal stenosis. No significant neural foramina stenosis. L4-L5: Broad-based disc bulge with bilateral facet arthropathy and ligamentum flavum buckling result ing in at least moderate central canal stenosis. Moderate bilateral neuroforaminal stenosis. L5-S1: No spinal canal or neural foraminal stenosis is identified. Advanced facet arthropathy on the right. Other: Right iliac vein vascular stent identified. Mild atherosclerotic calcification of the aorta an d its branches. Cholecystectomy clips identified. Contrast is demonstrated within both renal collecti ng systems from prior exam which limits evaluation for calculi. IMPRESSION: 1. Acute fracture involving the anterior cortex and inferior endplate of the T9 vertebral body with e xtension through anterior DISH(diffuse skeletal idiopathic hyperostosis). There is associated widenin g of the anterior portion of the disc space. Corresponds to prior CT 07/05/2024. Consider further eval uation with MRI as clinically indicated. 2. 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 Most pronounced at L4-L5 with at l east moderate central canal stenosis secondary to disc bulge. [facility], , 07/06/2024 11:20 AM
[2024-07-06] MEDS ORDERED: DEXTROSE 50% SYRINGE 50 ML IVP PRN ×2 (11:44)
--- NOTE | 2024-07-06 11:46 | P.CONS ---
History of Present Illness - Reason for Consult Consult date: 07/06/24 Medical Management Requesting physician: Franco Hicks - History of Present Illness History of Presenting Illness: Patient is a pleasant 84-year-old male with a past medical history of peripheral vascular disease status post stenting of the right common iliac vein, hypertension, hyperlipidemia, he presented to our facility as a transfer from [facility] where he initially presented with back and right sided hip pain. Patient reports he was walking in the parking lot and stepped up onto the curb with his left leg which is his bad leg and his leg gave out resulting in him falling backwards onto his bottom. Patient underwent evaluation at their facility. CTA chest/abdomen/pelvis was obtained showing acute T9-T10 inferior endplate AP directed extension type fracture with minimal widening at the anterior aspect to to 0.5 cm. Labs were completed and reviewed. Troponin was negative at less than 0.012. Alcohol was negative at less than 10. CBC showing macrocytosis with MCV of 98.9 otherwise normal findings. BMP showing mild hy perchloremia with chloride of 109, glucose of 114, BUN of 34.4, creatinine 1.48, and GFR 48.01. Liver profile unremarkable. Coagulation profile normal findings. Magnesium 1.8. Patient was transferred to our facility for evaluation by orthospine surgeon. Patient admitted under orthospine surgery team and we were consulted for medical management throughout hospitalization. Patient seen and fully evaluated in the emergency department in [place] [address]. He currently reports 8 out of 10 lower back pain and RN preparing to medicate him at this time. Vital signs currently showing blood pressure 132/78, heart rate 55, respiratory rate 18, temp 98.0 F, and SpO2 of 98% on room air. He denies having any new numbness/tingling/weakness in his extremities. Patient reports chronic bilateral lower extremity paresthesias and weakness of left lower extremity but denies any changes or new findings. Patient denies having any involuntary loss of bowel or bladder and denies having any saddlebag anes thesias. Review of systems: Pertinent positives and negatives as discussed in HPI, a complete review of systems was performed and all other systems are negative. Physical exam: Vital signs reviewed and stable. General: Nontoxic, no distress and appears stated age. Derm: Skin warm and dry, normal coloration for ethnicity. Head: Atraumatic, normocephalic and symmetric. Eyes: EOM's intact, no lid lag, and anicteric sclera Mouth: no lip lesions, mucus membranes moist Cardiovascular: regular rate and rhythm with normal S1S2, no murmur, positive posterior tibial pulses bilaterally, and cap refill < 2 seconds. Lungs: Respirations even, regular, and unlabored on room air. Lungs diminished otherwise no rhonchi, no rales, no wheezing, and no accessory muscle usage. Abdominal: Obese abdomen soft, nontender to palpation, no guarding, no appreciable organomegaly Ext: ROM intact. No gross muscle atrophy, scant bilateral lower extremity edema with venous discoloration, no contractures Neuro: Speech clear, face symmetrical and CN II-XII grossly intact with no noted focal neuro deficits Psych: Alert and oriented to person, place, time, and situation. Appropriate and pleasant affect. Assessment and Plan of Care: T9 and T10 endplate fracture status post mechanical fall -Patient admitted under orthospine surgery team. -Orthospine surgery team managing pain management, advancement of activity, DVT prophylaxis, and to discuss treatment options/plan of care with patient. -Order placed for preoperative EKG. History of peripheral vascular disease status post stenting of right common iliac vein Hypertension Hyperlipidemia -Resume atorvastatin 20 mg nightly, patient states he has not been taking because he did not get his prescription refilled. Hold aspirin pending recommendations from orthospine surgery team. -Continue daily medication regimen with lisinopril 2.5 mg daily. Data and imaging reviewed: As stated above in HPI. Thank you for allowing us to participate in the care of this pleasant patient. Do not hesitate to contact us with questions. Someone can be reached from the [facility] hospitalist group all hours of the day at [phone] or via [employer]. Patient was seen independently by Nurse Practitioner. This document was prepared using [employer] dictation software. Please allow for errors in residential sales rep while rare they do occur. .I reviewed the documentation as provided by the SINDHU above, who is the original author of this note. I agree with the documented assessment and plan, with the following changes: none Past Medical History Past Medical History: Asthma, Cancer, Hyperlipidemia, Hypertension, Osteoarthritis (OA), Sleep Apnea/CPAP/BIPAP Additional Past Medical History / Comment(s): cpap, fell in october 2013 and fractured left hip, periodontal infection that delayed hip surgery. 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 Past Surgical History: Cholecystectomy, Joint Replacement, Orthopedic Surgery Additional Past Surgical History / Comment(s): brain tumor removed as a teen, cami hip replacement Past Anesthesia/Blood Transfusion Reactions: No Reported Reaction Additional Past Anesthesia/Blood Transfusion Reaction / Comm: very severe sleep apnea per patient Past Psychological History: Anxiety, Depression Smoking Status: Former smoker Past Alcohol Use History: None Reported Past Drug Use History: None Reported - Past Family History Brother(s) Family Medical History: Cancer Additional Family Medical History / Comment(s): kidney,liver Medications and Allergies Home Medications Medication Instructions Recorded Confirmed Type PARoxetine HCL [Paxil] 40 mg PO DAILY 06/08/14 07/06/24 History Folic Acid 1 mg PO DAILY 07/12/21 07/06/24 History Tamsulosin [Flomax] 0.4 mg PO DAILY 07/12/21 07/06/24 History metFORMIN HCL [Glucophage] 500 mg PO Q2D 02/05/22 07/06/24 History lisinopriL 2.5 mg PO DAILY 04/23/23 07/06/24 History Ferrous Sulfate [Iron (65 MG 325 mg PO DAILY 07/06/24 07/06/24 History Elemental)] Allergies Allergy/AdvReac Type Severity Reaction Status Date / Time Penicillins Allergy Rash/Hives Verified 07/06/24 09:09 Physical Exam Vitals: Vital Signs Temp Pulse Resp BP Pulse Ox 07/06/24 06:08 58 L 18 110/61 99 07/06/24 03:15 97.3 F L 62 16 118/71 96 Intake and Output 07/05/24 07/06/24 07/06/24 22:59 06:59 14:59 Other: Weight 105.233 kg Results CBC & Chem 7: 07/11/24 07:53 07/11/24 07:53
[2024-07-06 12:14] LABS: Glucose,Whole Blood 125 mg/dL (70-110)
[2024-07-06] MEDS: INSULIN ASPART (NovoLOG) 100 UNIT/ML VIAL SQ SCH (12:31)
[2024-07-06] MEDS: PARoxetine 20 MG TAB PO SCH (12:37)
--- NOTE | 2024-07-06 12:53 | P.HPOR ---
History of Present Illness H&P Date: 07/06/24 Chief Complaint: Back pain Patient is an 84-year-old male who presented as a transfer from [facility] for evaluation of thoracic spine fracture after fall. Patient was seen at bedside this morning in the ER lying in the semirecumbent position. Patient states around 4 PM yesterday he was walking a parking lot when he stepped over a curb his left leg seem to give out and he fell onto his back. Patient denies any head or neck trauma. Patient says he is having pain mostly in the middle back at this time. Patient also mentions some right sided low back pain. Patient denies any numbness or tingling down the legs. Patient did present to [facility] where CT was performed that showed endplate fracture of T9/T10. Patient was then transferred here to [facility] for further evaluation by orthopedics and pain control. Patient states that he believes he fell because he does have chronic left leg weakness which has led to several falls over the past several years. Patient states since presenting to the hospital, he has not been up walking. Patient normally states he ambulates independently. Patient states mostly the pain is located in the middle of the back as well as the right side low back. Patient denies radiation down the legs. Patient says normally does take Tylenol at home for pain however since the fall nothing much has helped with his pain. Patient denies loss of bowel/bladder control. Past Medical History Past Medical History: Asthma, Cancer, Hyperlipidemia, Hypertension, Osteoarthritis (OA), Sleep Apnea/CPAP/BIPAP Additional Past Medical History / Comment(s): cpap, fell in october 2013 and fractured left hip, periodontal infection that delayed hip surgery. 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, VRE Date of last positivie culture/infection: 02/06/22 VRE MDRO Source:: Urine Past Surgical History: Cholecystectomy, Joint Replacement, Orthopedic Surgery Additional Past Surgical History / Comment(s): brain tumor removed as a teen, cami hip replacement Past Anesthesia/Blood Transfusion Reactions: No Reported Reaction Additional Past Anesthesia/Blood Transfusion Reaction / Comment(s): very severe sleep apnea per patient Past Psychological History: Anxiety, Depression Smoking Status: Former smoker Past Alcohol Use History: None Reported Past Drug Use History: None Reported - Past Family History Brother(s) Family Medical History: Cancer Additional Family Medical History / Comment(s): kidney,liver Medications and Allergies Home Medications Medication Instructions Recorded Confirmed Type PARoxetine HCL [Paxil] 40 mg PO DAILY 06/08/14 07/06/24 History Folic Acid 1 mg PO DAILY 07/12/21 07/06/24 History Tamsulosin [Flomax] 0.4 mg PO DAILY 07/12/21 07/06/24 History metFORMIN HCL [Glucophage] 500 mg PO Q2D 02/05/22 07/06/24 History lisinopriL 2.5 mg PO DAILY 04/23/23 07/06/24 History Ferrous Sulfate [Iron (65 MG 325 mg PO DAILY 07/06/24 07/06/24 History Elemental)] Allergies Allergy/AdvReac Type Severity Reaction Status Date / Time Penicillins Allergy Rash/Hives Verified 07/06/24 09:09 Physical Examination Inspection: Negative for any open fracture, significant erythema/ecchymosis/open wounds. Sensation: Equal, symmetric, bilateral intact throughout the upper and lower extremities on exam Palpation: moderate TTP of lower thoracic spine at midline. Fair amount TTP over lower lumbar spine at midline and in right Si joint. Nontender to palpation throughout rest of exam. Range of motion: Patient does have good range of motion throughout bilateral upper extremities on exam. Patient has good range of motion throughout right lower extremity on exam. There is limited range of motion throughout left lower extremity and hip flexors extension left knee flexion and extension and dorsi/plantarflexion of the left ankle secondary to referred pain to the low back as well as weakness in the leg. Motor: 4/5 in all major motor groups in the right lower extremity. 4-/5 in all major motor groups in left lower extremity. Neurovascular: Radial pulse intact, 2+ bilaterally. Cap refill under 3 seconds in digits of upper extremities Special test: Negative Mendel bilaterally. Negative clonus bilaterally. Negative Marcy bilaterally. Assessment and Plan Assessment: 1. Mid back pain; low back pain; T9/T10 endplate fractures Plan: 1. Mid back pain; low back pain; T9/T10 endplate fractures -I did review the findings of the exam with my attending, Dr. Hicks. At this time we are recommending CT scan of the thoracic or lumbar spine for further evaluation, since patient's fall. Pain medication as needed. Patient may weight-bear as tolerated with walker and assistance. Encourage incentive spirometer use. We do encourage patient to perform gentle range of motion exercises while resting in bed. We will await findings from CT scan of the thoracolumbar spine before proceeding with any potential orthopedic intervention. We will continue to follow patient during stay in hospital. 2. Appreciate medical management 3. Pain management - norco; flexeril 4. DVT prophylaxis - mechanical 5. GI prophylaxis - senna 6. PT/OT -bearing as tolerated with walker and assistance 7. Encourage incentive spirometer use Time with Patient: Less than 30
[2024-07-06 16:40] LABS: Glucose,Whole Blood 102 mg/dL (70-110)
[2024-07-06] MEDS: CYCLOBENZAPRINE 5 MG TAB PO SCH (18:02)
[2024-07-06] MEDS: ATORVASTATIN 20 MG TAB PO SCH (20:06)
[2024-07-06] MEDS: TAMSULOSIN 0.4 MG CAP.ER.24H PO SCH (20:06)
[2024-07-06 20:39] LABS: Glucose,Whole Blood 100 mg/dL (70-110)
[2024-07-06] MEDS: HYDROcodone/APAP 5-325MG 1 EACH TAB PO PRN (23:05)
[2024-07-07 05:33] LABS: Glucose,Whole Blood 93 mg/dL (70-110)
[2024-07-07] MEDS: FOLIC ACID 1 MG TAB PO SCH (08:28)
[2024-07-07] MEDS: SENNOSIDES 8.6 MG TAB PO SCH (08:28)
[2024-07-07] MEDS: FERROUS SULFATE 325 MG TAB PO SCH (08:28)
[2024-07-07 11:25] LABS: Glucose,Whole Blood 121 mg/dL (70-110)
--- NOTE | 2024-07-07 12:12 | P.PN ---
Subjective Progress Note Date: 07/07/24 Principal diagnosis: Mid back pain; low back pain; T9/T10 endplate fractures Patient was seen at bedside this morning lying in semirecumbent position. He says he is still having mid and low back pain at this time. He says he is agreeable with back surgery tomorrow. Patient denies any other issues at this time. Medicine following. Objective - Vital Signs Vital signs: Vital Signs Temp 97.5 F L 07/07/24 08:00 Pulse 60 07/07/24 08:00 Resp 17 07/07/24 08:00 BP 103/52 07/07/24 08:00 Pulse Ox 95 07/07/24 08:00 FiO2 Intake & Output 07/06/24 07/07/24 07/07/24 18:59 06:59 18:59 Intake Total 118 Output Total 300 0 Balance -300 0 118 Weight 105.233 kg Intake: Oral 118 Output: Urine 300 0 Other: Voiding Method Urinal Urinal # Voids 1 - Exam Inspection: Negative for any open fracture, significant erythema/ecchymosis/open wounds. Sensation: Equal, symmetric, bilateral intact throughout the upper and lower extremities on exam Palpation: moderate TTP of lower thoracic spine at midline. Fair amount TTP over lower lumbar spine at midline and in right Si joint. Nontender to palpation t hroughout rest of exam. Range of motion: Patient does have good range of motion throughout bilateral upper extremities on exam. Patient has good range of motion throughout right lower extremity on exam. There is limited range of motion throughout left lower extremity and hip flexors extension left knee flexion and extension and dorsi/plantarflexion of the left ankle secondary to referred pain to the low back as well as weakness in the leg. Motor: 4/5 in all major motor groups in the right lower extremity. 4-/5 in all major motor groups in left lower extremity. Neurovascular: Radial pulse intact, 2+ bilaterally. Cap refill under 3 seconds in digits of upper extremities Special test: Negative Mendel bilaterally. Negative clonus bilaterally. Negative Marcy bilaterally. - Labs Labs: Abnormal Lab Results - Last 24 Hours (Table) 07/06/24 07/07/24 07/07/24 Range/Units 12:10 05:37 11:23 POC Glucose (mg/dL) 125 H 121 H (70-110) mg/dL Hemoglobin A1c 6.3 H (<=6.0) % Assessment and Plan Assessment: 1. Mid back pain; low back pain; T9/T10 endplate fractures Plan: 1. Mid back pain; low back pain; T9/T10 endplate fractures -CT scan of the thoracolumbar spine does reveal T9/T10 endplate fractures. Patient does have pain to palpation over this area on spine exam. Due to the acute injury nature of the fractures, patient spine is unstable. We are recommending orthopedic surgical intervention in the form of T8-T11 stabilization for T9/10 endplate fractures. Surgery has been scheduled for tomorrow, , 07/08/2024. Patient is agreeable with this plan. Patient to be n.p.o. beginning midnight tonight. Pain medication as needed. Recommend bedrest at this time. Encourage incentive spirometer use. We do encourage patient to perform gentle range of motion exercises while resting in bed. Surgery planned for tomorrow pending medicine clearance. withhold blood thinners at this time. We will continue to follow patient during stay in hospital. 2. Appreciate medical management 3. Pain management - norco; flexeril 4. DVT prophylaxis - mechanical 5. GI prophylaxis - senna 6. PT/OT -bedrest. Okay to perform gentle range of motion exercises while resting in bed 7. Encourage incentive spirometer use Time with Patient: Less than 30
--- NOTE | 2024-07-07 13:56 | P.PN ---
Subjective Progress Note Date: 07/07/24 Hospital Course: Patient is a pleasant 84-year-old male with a past medical history of peripheral vascular disease status post stenting of the right common iliac vein, hypertension, hyperlipidemia, he presented to our facility as a transfer from [facility] where he initially presented with back and right sided hip pain. Patient reported he was walking in the parking lot and stepped up onto the curb with his left leg which is his bad leg and his leg gave out resulting in him falling backwards onto his bottom. Patient underwent evaluation at their facility. CTA chest/abdomen/pelvis was obtained showing acute T9-T10 inferior endplate AP directed extension type fracture with minimal widening at the anterior aspect to to 0.5 cm. Labs were completed and reviewed. Troponin was negative at less than 0.012. Alcohol was negative at less than 1 0. CBC showing macrocytosis with MCV of 98.9 otherwise normal findings. BMP showing mild hyperchloremia with chloride of 109, glucose of 114, BUN of 34.4, creatinine 1.48, and GFR 48.01. Liver profile unremarkable. Coagulation profile normal findings. Magnesium 1.8. Patient was transferred to our facility for evaluation by orthospine surgeon. Patient admitted under orthospine surgery team and we were consulted for medical management throughout hospitalization. 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 Patient is scheduled to undergo T8-T11 stabilization for T9/T10 endplate fractures with Dr. Hicks on 07/08/2024. Physical exam: Patient seen and fully evaluated at bedside this morning. Patient lying supine in bed he reports continued pain to mid and lower back. He continues to deny having any increased weakness or experiencing any numbness/tingling in his extremities. Patient denies having any involuntary loss of bowel or bladder or experiencing any saddlebag anesthesias. Vital signs reviewed and stable. General: Nontoxic, no distress and appears stated age. Derm: Skin warm and dry, normal coloration for ethnicity. Head: Atraumatic, normocephalic and symmetric. Eyes: EOM's intact, no lid lag, and anicteric sclera Mouth: no lip lesions, mucus membranes moist Cardiovascular: regular rate and rhythm with normal S1S2, no murmur, positive posterior tibial pulses bilaterally, and cap refill < 2 seconds. Lungs: Respirations even, regular, and unlabored on room air. Lungs diminished otherwise no rhonchi, no rales, no wheezing, and no accessory muscle usage. Abdominal: Obese abdomen soft, nontender to palpation, no guarding, no appreciable organomegaly Ext: ROM intact. No gross muscle atrophy, scant bilateral lower extremity edema with venous discoloration, no contractures Neuro: Speech clear, face symmetrical and CN II-XII grossly intact with no noted focal neuro deficits Psych: Alert and oriented to person, place, time, and situation. Appropriate and pleasant affect. Assessment and Plan of Care: Preoperative Clearance -Preoperative EKG completed and reviewed showing sinus bradycardia at 56 bpm with a first-degree AV block with DE interval of 252 ms with new onset T wave inversion in lead III which is a new finding when compared to previous EKG completed 04/22/2023. Secondary to patient's advanced peripheral vascular disease and EKG changes, recommend cardiac clearance prior to proceeding with surgical intervention. -NSQIP surgical risk calculator was completed. Secondary to patient's advanced peripheral vascular disease, hypertension, and hyperlipidemia, he is at an above average risk of 5.6% with average risk of 3.9% for serious complications, above average risk for cardiac complication at 0.7% with average risk being 0.2% and added above average risk of at 0.6% with average risk being 0.2%. -METS score is > 4. -Patient is at an above average risk for surgical intervention, however there are no absolute contraindications for him to undergo surgery for stabilization of his acute T9/T10 endplate fractures. He is medically optimized at this time and cleared from medical perspective to proceed with planned surgical intervention once cardiac clearance is obtained. T9 and T10 endplate fracture status post mechanical fall -Patient admitted under orthospine surgery team. -Orthospine surgery team managing pain management, advancement of activity, DVT prophylaxis, and to discuss treatment options/plan of care with patient. History of peripheral vascular disease status post stenting of right common iliac vein Hypertension Hyperlipidemia -Resume atorvastatin 20 mg nightly, patient reported he has not been taking because he did not get his prescription refilled. Hold aspirin pending recommendations from orthospine surgery team. -Continue daily medication regimen with lisinopril 2.5 mg daily. Data and imaging reviewed: Repeat thoracic and lumbar spine CT showing acute fracture involving the anterior cortex and inferior endplate of the T9 vertebral body with extension to her anterior DISH with associated widening of the anterior portion of the disc space and multilevel degenerative disc disease in the lower lumbar spine most pronounced L4-L5 with at least moderate central canal stenosis secondary to disc bulge. Patient is scheduled to undergo T8-T11 stabilization for T9/T10 endplate fractures with Dr. Hicks on 07/08/2024. Vital signs reviewed and stable. Blood pressure 103/52, heart rate 60, respiratory rate 16, temp 97.5 F, and SpO2 of 95% on room air. Labs reviewed. Hemoglobin A1c 6.3%. Blood glucose currently 93 this morning. CBC, BMP, coagulation profile pending. Thank you for allowing us to participate in the care of this pleasant patient. Do not hesitate to contact us with questions. Someone can be reached from the [facility] hospitalist group all hours of the day at [phone] or via [employer]. Patient was seen independently by Nurse Practitioner. This document was prepared using [employer] dictation software. Please allow for errors in it help desk manager while rare they do occur. I reviewed the documentation as provided by the SINDHU above, who is the original author of this note. I agree with the documented assessment and plan, with the following changes: none Objective - Vital Signs Vital signs: Vital Signs Temp 97.5 F L 07/07/24 02:00 Pulse 60 07/07/24 02:00 Resp 17 07/06/24 19:50 BP 93/47 07/07/24 02:00 Pulse Ox 95 07/06/24 14:00 FiO2 Intake & Output 07/06/24 07/07/24 07/07/24 18:59 06:59 18:59 Output Total 300 0 Balance -300 0 Weight 105.233 kg Output: Urine 300 0 Other: Voiding Method Urinal # Voids 1 - Labs CBC & Chem 7: 07/11/24 07:53 07/11/24 07:53 Labs: Abnormal Lab Results - Last 24 Hours (Table) 07/06/24 Range/Units 12:10 POC Glucose (mg/dL) 125 H (70-110) mg/dL
[2024-07-07 14:41] LABS: HCT 40.9 % (39.0-53.0); HGB 13.2 gm/dL (13.0-17.5); Hypochromasia Slight; MCH 31.3 pg (25.0-35.0); MCHC 32.2 g/dL (31.0-37.0); MCV 97.3 fL (80.0-100.0); Mean Platelet Volume 7.1; Platelet Count 193 k/uL (150-450); RDW 13.1 % (11.5-15.5); WBC 6.3 k/uL (3.8-10.6)
[2024-07-07 14:46] LABS: INR 1.1 (<1.2); Prothrombin Time 11.9 sec (10.0-12.5)
[2024-07-07 14:54] LABS: African American GFR (CKD) 70 (>60 ml/min/1.73 sqM); Anion Gap 3 mmol/L; Blood Urea Nitrogen 26 mg/dL (9-20); Calcium 8.8 mg/dL (8.4-10.2); Carbon Dioxide 29 mmol/L (22-30); Chloride 109 mmol/L (98-107); Glucose 123 mg/dL (74-99); Non-African American GFR(CKD) 60 (>60 ml/min/1.73 sqM); Potassium 4.6 mmol/L (3.5-5.1); Sodium 141 mmol/L (137-145)
--- NOTE | 2024-07-07 15:29 | P.CRDCN ---
History of Present Illness History of present illness: HISTORY OF PRESENT ILLNESS: This is a 84-year-old male with a past medical history significant for hypertension, diabetes, peripheral arterial disease, and diabetes. Patient follows in the office with Dr. Ann. We have been asked to see the patient in consultation for surgical clearance. Patient examined at the bedside. Patient initially presented to the hospital secondary to back pain after he fell. Patient was found to have a thoracic fracture and was transferred to [facility]. Patient is scheduled to undergo surgery with orthopedics tomorrow, July 08, 2024. Patient currently denies any chest pain or pressure. He reports chronic shortness of breath with exertion. He states that he is not very active at home and walks with a walker. Vital signs are stable. DIAGNOSTICS: - EKG reveals sinus mechanism with nonspecific ST-T wave changes. - Current home cardiac medications include lisinopril 2.5 mg daily - Most recent echocardiogram obtained in January 2024 revealed ejection fraction 55%, mild TR - Patient underwent Lexiscan stress test in January 2024 revealing EF 76% with no evidence of reversible ischemia REVIEW OF SYSTEMS: At the time of my exam: CONSTITUTIONAL: Denies fever or chills. HEENT: Denies blurred vision, vision changes, or eye pain. Denies hemoptysis CARDIOVASCULAR: Denies chest pain. Denies orthopnea. Denies PND. Denies p alpitations RESPIRATORY: Denies shortness of breath. GASTROINTESTINAL: Denies abdominal pain. Denies nausea or vomiting. HEMATOLOGIC: Denies bleeding disorders. GENITOURINARY: Denies any blood in urine. SKIN: Denies pruitis. Denies rash. PHYSICAL EXAM: VITAL SIGNS: Reviewed. GENERAL: Well-developed in no acute distress. HEENT: Head is normocephalic. Pupils are equal, round. Sclerae anicteric. Mucous membranes of the mouth are moist. Neck supple. No JVD or thyromegaly LUNGS: Respirations even and unlabored. Lungs essentially clear to auscultation bilaterally. HEART: Regular rate and rhythm. S1 and S2 heard. ABDOMEN: Soft. Nondistended. Nontender. EXTREMITIES: No clubbing or cyanosis. Peripheral pulses intact. No lower extremity edema NEUROLOGIC: Awake and alert. Oriented x 3. ASSESSMENT: T9 and T10 endplate fracture status post mechanical fall Hypertension Hyperlipidemia Peripheral arterial disease Diabetes PLAN: Continue current cardiac medications No need to repeat echocardiogram as this was performed in January 2024 It is noted the patient underwent Lexiscan stress test January 2024 which was negative for ischemia According to orthopedics documentation, patient spine is unstable and he requires surgery. He is scheduled to undergo surgery tomorrow. Patient is at intermediate risk to undergo surgery due to his comorbidities and overall poor functional capacity. However there are no absolute contraindications for patient to proceed from a cardiac standpoint Further recommendations pending patient course Nurse practitioner note has been reviewed by physician. Signing provider agrees with the documented findings, assessment, and plan of care documented by METAL CONTROL WORKER as a scribe. Past Medical History Past Medical History: Asthma, Cancer, Hyperlipidemia, Hypertension, Osteoarthritis (OA), Sleep Apnea/CPAP/BIPAP Additional Past Medical History / Comment(s): cpap, fell in october 2013 and fractured left hip, periodontal infection that delayed hip surgery. 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 He has a couple of walkers but does not usually use them. He states he drives. Smoking Status: Former smoker Past Alcohol Use History: None Reported Additional Past Alcohol Use History / Comment(s): Pt started smoking cigars in 2 and quit smoking them in 1998 Past Drug Use History: None Reported - Past Family History Brother(s) Family Medical History: Cancer Additional Family Medical History / Comment(s): kidney,liver Medications and Allergies Home Medications Medication Instructions Recorded Confirmed Type PARoxetine HCL [Paxil] 40 mg PO DAILY 06/08/14 07/06/24 History Folic Acid 1 mg PO DAILY 07/12/21 07/06/24 History Tamsulosin [Flomax] 0.4 mg PO DAILY 07/12/21 07/06/24 History metFORMIN HCL [Glucophage] 500 mg PO Q2D 02/05/22 07/06/24 History lisinopriL 2.5 mg PO DAILY 04/23/23 07/06/24 History Ferrous Sulfate [Iron (65 MG 325 mg PO DAILY 07/06/24 07/06/24 History Elemental)] Allergies Allergy/AdvReac Type Severity Reaction Status Date / Time Penicillins Allergy Rash/Hives Verified 07/06/24 09:09 Physical Exam Vitals: Vital Signs Temp Pulse Resp BP Pulse Ox 07/07/24 08:00 97.5 F L 60 17 103/52 95 07/07/24 02:00 97.5 F L 60 93/47 07/06/24 20:00 97.3 F L 81 125/66 07/06/24 19:50 64 17 Intake and Output 07/06/24 07/07/24 07/07/24 22:59 06:59 14:59 Intake Total 118 Output Total 300 0 Balance -300 0 118 Intake: Oral 118 Output: Urine 300 0 Other: Voiding Method Urinal Urinal # Voids 1 Weight 105.233 kg Results 07/07/24 14:24 07/07/24 14:24 Current Medications Generic Name Dose Route Start Last Admin Trade Name Freq PRN Reason Stop Dose Admin Acetaminophen 650 mg 07/06/24 06:03 Acetaminophen Tab 325 Mg Tab PO Q6HR PRN Mild Pain or Fever > 100.5 Hydrocodone Bitart/Acetaminophen 1 each 07/06/24 12:52 07/06/24 23:05 Hydrocodone/Apap 5-325mg 1 Each Tab PO 1 each Q4HR PRN Administration Pain Atorvastatin Calcium 20 mg 07/06/24 21:00 07/06/24 20:06 Atorvastatin 20 Mg Tab PO 20 mg HS ESTEFANY Administration Cyclobenzaprine HCl 5 mg 07/06/24 16:00 07/07/24 08:28 Cyclobenzaprine 5 Mg Tab PO 5 mg TID ESTEFANY Administration Dextrose/Water 25 ml 07/06/24 11:44 Dextrose 50% Syringe 50 Ml IVP PER PROTOCOL PRN Hypoglycemia Protocol Dextrose/Water 50 ml 07/06/24 11:44 Dextrose 50% Syringe 50 Ml IVP PER PROTOCOL PRN Hypoglycemia Protocol Ferrous Sulfate 325 mg 07/07/24 09:00 07/07/24 08:28 Ferrous Sulfate 325 Mg Tab PO 325 mg DAILY ESTEFANY Administration Folic Acid 1 mg 07/07/24 09:00 07/07/24 08:28 Folic Acid 1 Mg Tab PO 1 mg DAILY ESTEFANY Administration Hydromorphone HCl 0.5 mg 07/06/24 06:03 07/07/24 08:28 Hydromorphone 0.5 Mg/0.5 Ml Syringe IVP 0.5 mg Q3HR PRN Administration Moderate Pain (Scale 4 to 6) Insulin Aspart 0 unit 07/06/24 12:30 07/07/24 11:53 Insulin Aspart (Novolog) 100 Unit/Ml Vial SQ Not Given ACHS [facility] Protocol Lisinopril 2.5 mg 07/06/24 09:00 07/07/24 08:28 Lisinopril 2.5 Mg Tab PO 2.5 mg DAILY ESTEFANY Administration Naloxone HCl 0.2 mg 07/06/24 06:03 Naloxone 0.4 Mg/Ml 1 Ml Vial IV Q2M PRN Opioid Reversal Ondansetron HCl 4 mg 07/06/24 06:03 Ondansetron 4 Mg/2 Ml Vial IVP Q8HR PRN Nausea And Vomiting Paroxetine HCl 40 mg 07/06/24 12:00 07/07/24 08:28 Paroxetine 20 Mg Tab PO 40 mg DAILY ESTEFANY Administration Senna 8.6 mg 07/07/24 09:00 07/07/24 08:28 Sennosides 8.6 Mg Tab PO 8.6 mg DAILY ESTEFANY Administration Tamsulosin HCl 0.4 mg 07/06/24 21:00 07/06/24 20:06 Tamsulosin 0.4 Mg Cap.Er.24h PO 0.4 mg HS ESTEFANY Administration Intake and Output 07/06/24 07/07/24 07/07/24 22:59 06:59 14:59 Intake Total 118 Output Total 300 0 Balance -300 0 118 Intake: Oral 118 Output: Urine 300 0 Other: Voiding Method Urinal Urinal # Voids 1 Weight 105.233 kg
[2024-07-07 16:30] LABS: Glucose,Whole Blood 94 mg/dL (70-110)
[2024-07-07 19:52] LABS: Glucose,Whole Blood 105 mg/dL (70-110)
[2024-07-08 06:19] LABS: Glucose,Whole Blood 124 mg/dL (70-110)
[2024-07-08 06:39] LABS: Anisocytosis Slight; HCT 37.9 % (39.0-53.0); HGB 13.3 gm/dL (13.0-17.5); Hypochromasia Moderate; MCH 35.7 pg (25.0-35.0); MCHC 35.1 g/dL (31.0-37.0); MCV 101.6 fL (80.0-100.0); Macrocytosis Slight; Mean Platelet Volume 7.2; Platelet Count 204 k/uL (150-450); RBC 3.73 m/uL (4.30-5.90); RDW 19.6 % (11.5-15.5); WBC 6.7 k/uL (3.8-10.6)
[2024-07-08 07:01] LABS: African American GFR (CKD) 77 (>60 ml/min/1.73 sqM); Anion Gap 6 mmol/L; Blood Urea Nitrogen 25 mg/dL (9-20); Calcium 8.8 mg/dL (8.4-10.2); Carbon Dioxide 26 mmol/L (22-30); Chloride 107 mmol/L (98-107); Glucose 117 mg/dL (74-99); Magnesium 1.9 mg/dL (1.6-2.3); Non-African American GFR(CKD) 66 (>60 ml/min/1.73 sqM); Potassium 5.1 mmol/L (3.5-5.1); Sodium 139 mmol/L (137-145)
--- NOTE | 2024-07-08 09:49 | P.PN ---
Subjective HISTORY OF PRESENT ILLNESS: This is a 84-year-old male with a past medical history significant for hypertension, diabetes, peripheral arterial disease, and diabetes. Patient follows in the office with Dr. Ann. We have been asked to see the patient in consultation for surgical clearance. Patient examined at the bedside. Patient initially presented to the hospital secondary to back pain after he fell. Patient was found to have a thoracic fracture and was transferred to [facility]. Patient is scheduled to undergo surgery with orthopedics tomorrow, July 08, 2024. Patient currently denies any chest pain or pressu re. He reports chronic shortness of breath with exertion. He states that he is not very active at home and walks with a walker. Vital signs are stable. DIAGNOSTICS: - EKG reveals sinus mechanism with nonspecific ST-T wave changes. - Current home cardiac medications include lisinopril 2.5 mg daily - Most recent echocardiogram obtained in January 2024 revealed ejection fraction 55%, mild TR - Patient underwent Lexiscan stress test in January 2024 revealing EF 76% with no evidence of reversible ischemia 07/08/2024 Patient examined this morning at the bedside. Patient currently denies chest pain or pressure. He denies shortness of breath. He does complain of back pain this morning. He is scheduled to undergo surgical intervention today with orthopedics. Vital signs are stable. PHYSICAL EXAM: VITAL SIGNS: Reviewed. GENERAL: Well-developed in no acute distress. HEENT: Head is normocephalic. Pupils are equal, round. Sclerae anicteric. Mucous membranes of the mouth are moist. Neck supple. No JVD or thyromegaly LUNGS: Respirations even and unlabored. Lungs essentially clear to auscultation bilaterally. HEART: Regular rate and rhythm. S1 and S2 heard. ABDOMEN: Soft. Nondistended. Nontender. EXTREMITIES: No clubbing or cyanosis. Peripheral pulses intact. No lower extremity edema NEUROLOGIC: Awake and alert. Oriented x 3. ASSESSMENT: T9 and T10 endplate fracture status post mechanical fall Hypertension Hyperlipidemia Peripheral arterial disease Diabetes PLAN: Continue current cardiac medications No need to repeat echocardiogram as this was performed in January 2024 It is noted the patient underwent Lexiscan stress test January 2024 which was negative for ischemia According to orthopedics documentation, patient spine is unstable and he requires surgery. He is scheduled to undergo surgery today. Patient is at intermediate risk to undergo surgery due to his comorbidities and overall poor functional capacity. However there are no absolute contraindications for giovanna ent to proceed from a cardiac standpoint Further recommendations pending patient course Nurse practitioner note has been reviewed by physician. Signing provider agrees with the documented findings, assessment, and plan of care documented by SAFETY INSTRUCTION POLICE OFFICER as a scribe. Objective - Vital Signs Vital signs: Vital Signs Temp 98.7 F 07/08/24 07:47 Pulse 78 07/08/24 08:59 Resp 17 07/08/24 08:59 BP 128/71 07/08/24 07:47 Pulse Ox 96 07/08/24 07:47 FiO2 Intake & Output 07/07/24 07/08/24 07/08/24 18:59 06:59 18:59 Intake Total 118 Output Total 300 400 Balance -182 -400 Intake: Oral 118 Output: Urine 300 400 Other: Voiding Method Urinal Urinal Urinal - Labs CBC & Chem 7: 07/08/24 05:50 07/08/24 05:50 Labs: Abnormal Lab Results - Last 24 Hours (Table) 07/07/24 07/07/24 07/07/24 Range/Units 11:23 14:24 14:24 RBC 4.20 L (4.30-5.90) m/uL Hct (39.0-53.0) % MCV (80.0-100.0) fL MCH (25.0-35.0) pg RDW (11.5-15.5) % Chloride 109 H (98-107) mmol/L BUN 26 H (9-20) mg/dL Glucose 123 H (74-99) mg/dL POC Glucose (mg/dL) 121 H (70-110) mg/dL 07/08/24 07/08/24 07/08/24 Range/Units 05:50 05:50 06:18 RBC 3.73 L (4.30-5.90) m/uL Hct 37.9 L (39.0-53.0) % MCV 101.6 H (80.0-100.0) fL MCH 35.7 H (25.0-35.0) pg RDW 19.6 H (11.5-15.5) % Chloride (98-107) mmol/L BUN 25 H (9-20) mg/dL Glucose 117 H (74-99) mg/dL POC Glucose (mg/dL) 124 H (70-110) mg/dL
[2024-07-08] MEDS: ONDANSETRON 4 MG/2 ML VIAL IVP PRN (10:01)
--- NOTE | 2024-07-08 12:22 | P.PN ---
Subjective Progress Note Date: 07/08/24 84-year-old male with PMH of PVD status post stent of the right common iliac vein, HTN, HLD presented to our facility as a transfer from [facility] for back and right sided hip pain. Patient reported he was walking in the parking lot and stepped up onto the curb with his left leg which is his bad leg and his leg gave out resulting in him falling backwards onto his bottom. Patient underwent evaluation at their facility. CTA chest/abdomen/pelvis was obtained showing acute T9-T10 inferior endplate AP directed extension type fracture with minimal widening at the anterior aspect to to 0.5 cm. Troponin was negative at less than 0.012. Alcohol was less than 10. CBC showed MCV of 98.9. BMP showed Cl of 109, glu 114, BUN 34.4, Cr 1.48, and GFR 48.01. Liver profile unremarkable. Coagulation profile normal findings. Magnesium 1.8. Patient was transferred to [facility] for evaluation by orthospine surgeon. Patient admitted under orthospine surgery team and we were consulted for medical management. 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 Cardiology consulted, patient is above average risk for surgical intervention, however there are no absolute contraindications for him to undergo emergent surgery at this time. Plans for T8-T11 stabilization for T9/T10 endplate fractures with Dr. Hicks on 07/08/2024. 07/08 Patient was seen and examined. He is sleeping comfortably. Denies any complaints. CBC and BMP significant for RBC 3.73, MCV 101.6, BUN 25, glu 117. Mag 1.9. Plans for T8-T11 stabilization for T9/T10 endplate fractures today. General: non toxic, no distress, appears at stated age Derm: warm, dry, venous stasis changes lower extremities Head: atraumatic, normocephalic, symmetric Eyes: EOMI, no lid lag, anicteric sclera Mouth: no lip lesion, mucus membranes moist Cardiovascular: S1S2 reg, no murmur Lungs: Clear to auscultation bilaterally, no rhonchi, no rales , no accessory muscle use Abd: Non distended. Non tender to palpation Ext: no gross muscle atrophy, no edema, no contractures Neuro: no focal neuro deficits Psych: Alert, oriented, appropriate affect Based on my assessment of this patient, this patient meets a high complexity level of care. Preoperative Clearance: METS > 4. Cardiology consulted, intermediate risk to undergo surgery due to his comorbidities and overall poor functional capacity however no absolute contraindications. NSQIP surgical risk calculator, he is at an above average risk of 5.6% with average risk of 3.9% for serious complications, above average risk for cardiac complication at 0.7% with average risk being 0.2% and above average risk of at 0.6% with average risk being 0.2%. Cardiology consulted, intermediate risk to undergo surgery due to his comorbidities and overall poor functional capacity however no absolute contraindications. T9 and T10 endplate fracture status post mechanical fall with plans for T8-T11 stabilization for T9/T10 endplate fractures with Dr. Hicks on 07/08/2024. PVD status post stent of right common iliac vein Hypertension: Lisinopril 2.5 mg PO QD. Hyperlipidemia: Lipitor 20 mg PO QHS. BPH: Flomax 0.4 mg PO QHS. CODE STATUS: NO CODE but will need to be changed to FULL CODE prior to surgery. DVT Prophylaxis: SCDs. GI Prophylaxis: Designated medical POA if patient is not able to make medical decisions for them selves: I have reviewed the following network relations consultant notes: Cardiology, Ortho note. I have reviewed the results of the following tests: CBC, BMP, Mag. I have ordered the following tests: I have discussed the care of this patient with the following independent historian: RN. I have independently interpreted the following test below: I have discussed the management of this patient with the following physician: Objective - Vital Signs Vital signs: Vital Signs Temp 98.7 F 07/08/24 07:47 Pulse 78 07/08/24 07:47 Resp 17 07/08/24 07:47 BP 128/71 07/08/24 07:47 Pulse Ox 96 07/08/24 07:47 FiO2 Intake & Output 07/07/24 07/08/24 07/08/24 18:59 06:59 18:59 Intake Total 118 Output Total 300 400 Balance -182 -400 Intake: Oral 118 Output: Urine 300 400 Other: Voiding Method Urinal Urinal - Labs CBC & Chem 7: 07/08/24 05:50 07/08/24 05:50 Labs: Abnormal Lab Results - Last 24 Hours (Table) 07/07/24 07/07/24 07/07/24 Range/Units 05:37 11:23 14:24 RBC 4.20 L (4.30-5.90) m/uL Hct (39.0-53.0) % MCV (80.0-100.0) fL MCH (25.0-35.0) pg RDW (11.5-15.5) % Chloride (98-107) mmol/L BUN (9-20) mg/dL Glucose (74-99) mg/dL POC Glucose (mg/dL) 121 H (70-110) mg/dL Hemoglobin A1c 6.3 H (<=6.0) % 07/07/24 07/08/24 07/08/24 Range/Units 14:24 05:50 05:50 RBC 3.73 L (4.30-5.90) m/uL Hct 37.9 L (39.0-53.0) % MCV 101.6 H (80.0-100.0) fL MCH 35.7 H (25.0-35.0) pg RDW 19.6 H (11.5-15.5) % Chloride 109 H (98-107) mmol/L BUN 26 H 25 H (9-20) mg/dL Glucose 123 H 117 H (74-99) mg/dL POC Glucose (mg/dL) (70-110) mg/dL Hemoglobin A1c (<=6.0) % 07/08/24 Range/Units 06:18 RBC (4.30-5.90) m/uL Hct (39.0-53.0) % MCV (80.0-100.0) fL MCH (25.0-35.0) pg RDW (11.5-15.5) % Chloride (98-107) mmol/L BUN (9-20) mg/dL Glucose (74-99) mg/dL POC Glucose (mg/dL) 124 H (70-110) mg/dL Hemoglobin A1c (<=6.0) %
[2024-07-08 13:22] LABS: Glucose,Whole Blood 109 mg/dL (70-110)
--- NOTE | 2024-07-08 14:35 | P.PN ---
Progress Note - Text Progress Note Date: 07/08/24 Pt s/e this AM. He is very painful and unable to ambulate due to the pain in his back. He states he can barely roll over. He denies any other sx. states a fall caused this pain and the fracture. We discussed at length surgery for his back to help heal him quicker and get him up faster to ambulate and he understands and is comfortable with this. ASSESSMENT: 1. T9-10 AO B2 EXTENSION TYPE FRACTURE THROUGH ANKYLOSED SPINE 2. S/P FFS 3. DEBILITY RELATED TO FRACTURE AND AGE/COMORBIDS 4. COMPLEX MEDICAL PATIENT Spine Surgery Clinical and Risk Review Sabine Delgado is a 84 yo male presenting for evaluation of severe low back pain, inability to ambulate and fracture. It was my pleasure to have seen and examined Sabine Delgado In our visit today we have had a chance to go over subjective complaints, physical examination findings and treatments including the natural course history without intervention and various interventional options. The patients imaging demonstrates T9-10 extension injury through an ankylosed spine AO Type B2 with instability, fishmouthing at the T9-10 region and disc disruption. No other fractures noted. On physical exam, Sabine Delgado demonstrates severe low and mid back pain, inability to ambulate due to pain and debility secondary to fall and fracture. I have explained to the patient that as their condition progresses it will cause further neurological deficits and eventual paralysis. Based on the patients imaging, physical exam, and the rapid progression and disabling nature of their symptoms, at this time I recommend surgery in the form or a: T8-T11 stabilizaiton, ORIF and Fusion T9-10. I discussed the risk and benefits of this procedure at length with Sabine Delgado. The patient family agreed to considered pursuing the procedure abovementioned. Prior to surgery, she should follow up with her PCP (Cardio, ID, IM etc) for clearance. Questions were invited and answered, and the patient wishes to proceed as outlined below. Currently, I am recommendin. OPEN TREATMENT T9-10 EXTENSION FRACTURE WITH STABILIZATION AND FUSION T8- 11. 2. Follow up with PCP for surgical clearance 3. Review of surgical risks and benefits as well as an educational packet on the proposed surgical procedure. Risks: All surgical procedures come with inherent risks, including those related to positioning, anesthesia, intraoperative findings, and postoperative complications. It is important to understand that surgery does not come with any guarantee of a successful outcome as complications and adverse events are always possible. The patient was given a handout in office today discussing the surgical procedure and risks associated with the intervention, both of which were discussed with the patient. These risks include but are not limited to the following: * Experiencing same, different or even worse symptoms in back, neck, arms, or legs compared to before surgery. * Requiring further surgery or other forms of treatment presently or at some time in the future at same or other levels of the intended spine surgery. * On an extreme but fortunately relatively rare basis severe complication such as blindness, stroke, heart attack, temporary and/or permanent nerve injury, paralysis, coma, or may occur, sometimes without known explanation. * Surgical complications may include but are not limited to risk of infection, fluid accumulation in the surgical dissection site, including a seroma or hematoma, that requires additional surgery, wound drainage, bleeding, new numbness or weakness, vision changes/loss, spinal fluid leakage, non-healing and/or infected incision, headaches, difficulty or inability to swallow, hoarseness, hemopneumothorax, pneumothorax, impotence, retrograde ejaculation, vaginal dryness; injury to nerves, spinal cord, blood vessels, lymphatics or other vital organs (i.e., bowel injury, injury to the great vessels); heterotopic bone formation; complications related to the hardware such as screws, rods, cages including misplaced hardware, device failure, instrumentation at the wrong spine level, hardware fracture/breakage, or hardware loosening; vertebral failure of the spinal column above or below the newly placed hardware; retained surgical instrumentations or devices and the need for further surgery. * Medical risks of the planned spine surgery include but are not limited to generalized Infections to the whole body or local areas outside of the surgical site (sepsis), heart attack, bleeding, anaphylaxis, meningitis, s eizure, epilepsy, hearing loss, burn gonzalez, laceration of the head or other areas of the body, bruising, hypersensitivity of the skin, bladder over distension; allergic reaction; shoulder injury related to positioning; fat, blood and air clots to other areas of the body like heart, lungs, brain; failure of internal organs such as lungs, kidneys, liver and excessive bleeding. If blood transfusions are necessary, note that transfusions may cause intolerance reactions such as anaphylaxis or other complex reactions. * Despite best efforts, the results of spine surgery might not heal in terms of bone, soft tissues such as skin, fascia, ligaments, and joints. Additionally, in order to achieve best possible results, spine surgery may be carried out beyond the initially planned levels and involve decompression, fusion including insertion of hardware at levels other than the original intended area of surgical interest change some portions of the procedure in order to ensure the best possible outcomes. * With spine surgery and spinal fusion, there are different off label uses of instrumentation (devices, implants and hardware) as well as biological substances (bone morphogenic proteins, demineralized bone matrix) as well as using extra bone from allograft sources (i.e. cadaver bone) or autograft (iliac crest bone, ribs, or the spine itself). The patient has been given information about these practices and their inherent risks and benefits. The patient has had a chance to review all the listed information, has been given print outs detailing this information, and has had all his/her questions answered to their satisfaction. It was my pleasure to have seen and examined Sabine Delgado. In our visit today we have had a chance to go over my understanding of our patient's current condition, the natural course history without intervention and various interventional options. Questions were invited and answered, and the patient wishes to proceed as outlined above. I have seen and examined the patient for 25 minutes and we have spent more than 50% of the time in repeat and detailed counseling about the patient's condition, its natural course history with out and as much as can be predicted with surgery and re-review of various surgical treatment options. In conclusion,Sabine Delgado and his family requested we proceed with the above suggested surgery and are willing to accept risks and limitations of the suggested surgery as nature of the disease process and our best attempts at treatment for the condition. Thank you again for allowing us to be part of your patient's care. Please don't hesitate to contact me if you have any further questions. Signed and authenticated by: [facility] [address] [facility], [address] [address]
[2024-07-08 17:17] LABS: Glucose,Whole Blood 110 mg/dL (70-110)
--- NOTE | 2024-07-08 18:57 | P.PN ---
Progress Note - Text Progress Note Date: 07/08/24 Pt s/e in PRE OP. Pt is much more confused than he was this morning and unable to provide reliable consent due to likely medication and at this time. He has no next of kin in the chart that can be contacted. A friend was contacted who stated that yesterday he called her and talked to her about his surgery and getting fixed and he was on board. Today however, he is much more confused and having issues knowing where he is and what is going on. In speaking with Dr. Higgins, Dr Malone FEATHER STITCHER and staff it is felt that he is unreliable to consent and there is no reliable next of kin to provide this consent for him. We will obtain neurology consult due to pt confusion. We will ask for likey court appointed guardian and consent for surgery when available. Pt needs to remain bedrest due to unstable fracture in his spine. DVT PPX and respiratory PPX needs to be placed for this patient. We will ask medicine to reassess his medications and status to help with his mentation. We will postpone for now given that the majority to not agree to continue.
[2024-07-08 21:46] LABS: Glucose,Whole Blood 106 mg/dL (70-110)
[2024-07-09 05:37] LABS: Glucose,Whole Blood 100 mg/dL (70-110)
--- NOTE | 2024-07-09 10:23 | P.PN ---
Subjective HISTORY OF PRESENT ILLNESS: This is a 84-year-old male with a past medical history significant for hypertension, diabetes, peripheral arterial disease, and diabetes. Patient follows in the office with Dr. Ann. We have been asked to see the patient in consultation for surgical clearance. Patient examined at the bedside. Patient initially presented to the hospital secondary to back pain after he fell. Patient was found to have a thoracic fracture and was transferred to [facility]. Patient is scheduled to undergo surgery with orthopedics tomorrow, July 08, 2024. Patient currently denies any chest pain or pressu re. He reports chronic shortness of breath with exertion. He states that he is not very active at home and walks with a walker. Vital signs are stable. DIAGNOSTICS: - EKG reveals sinus mechanism with nonspecific ST-T wave changes. - Current home cardiac medications include lisinopril 2.5 mg daily - Most recent echocardiogram obtained in January 2024 revealed ejection fraction 55%, mild TR - Patient underwent Lexiscan stress test in January 2024 revealing EF 76% with no evidence of reversible ischemia 07/08/2024 Patient examined this morning at the bedside. Patient currently denies chest pain or pressure. He denies shortness of breath. He does complain of back pain this morning. He is scheduled to undergo surgical intervention today with orthopedics. Vital signs are stable. 07/09/2024 Patient examined this morning at the bedside. Patient surgery was canceled yesterday due to altered mental status and inability to consent to surgery. Patient does appear more confused today in comparison to yesterday. He denies any chest pain or pressure. He denies any shortness of breath. Vital signs are stable. PHYSICAL EXAM: VITAL SIGNS: Reviewed. GENERAL: Well-developed in no acute distress. HEENT: Head is normocephalic. Pupils are equal, round. Sclerae anicteric. Mucous membranes of the mouth are moist. Neck supple. No JVD or thyromegaly LUNGS: Respirations even and unlabored. Lungs essentially clear to auscultation bilaterally. HEART: Regular rate and rhythm. S1 and S2 heard. ABDOMEN: Soft. Nondistended. Nontender. EXTREMITIES: No clubbing or cyanosis. Peripheral pulses intact. No lower extremity edema NEUROLOGIC: Awake and alert. Oriented x 3. ASSESSMENT: T9 and T10 endplate fracture status post mechanical fall Hypertension Hyperlipidemia Peripheral arterial disease Diabetes PLAN: Continue current cardiac medications No need to repeat echocardiogram as this was performed in January 2024 It is noted the patient underwent Lexiscan stress test January 2024 which was negative for ischemia According to orthopedics documentation, patient spine is unstable and he requires surgery. Patient is at intermediate risk to undergo surgery due to his comorbidities and overall poor functional capacity. However there are no absolute contraindications for patient to proceed from a cardiac standpoint. Will defer timing of surgery to orthopedics. No further inpatient recommendations from a cardiac standpoint We will sign off. Please reconsult if needed. Nurse practitioner note has been reviewed by physician. Signing provider agrees with the documented findings, assessment, and plan of care documented by BUSPERSON as a scribe. Objective - Vital Signs Vital signs: Vital Signs Temp 98.4 F 07/09/24 06:51 Pulse 78 07/09/24 06:51 Resp 18 07/09/24 06:51 BP 95/59 07/09/24 06:51 Pulse Ox 100 07/09/24 06:51 FiO2 Intake & Output 07/08/24 07/09/24 07/09/24 18:59 06:59 18:59 Output Total 300 150 Balance -300 -150 Output: Urine 300 150 Other: Voiding Method Urinal External Catheter - Labs CBC & Chem 7: 07/08/24 05:50 07/08/24 05:50
[2024-07-09 12:10] LABS: Glucose,Whole Blood 114 mg/dL (70-110)
--- NOTE | 2024-07-09 12:15 | P.PN ---
Subjective Progress Note Date: 07/09/24 Principal diagnosis: Mid back pain; low back pain; T9/T10 endplate fractures Patient was seen at bedside this morning lying in semirecumbent position. He says he is still having mid and low back pain at this time. Patient does seem to be somewhat confused during encounter. Patient denies any other issues at this time. Medicine, neuro, cardio following. Objective - Vital Signs Vital signs: Vital Signs Temp 98.4 F 07/09/24 06:51 Pulse 78 07/09/24 06:51 Resp 18 07/09/24 06:51 BP 95/59 07/09/24 06:51 Pulse Ox 100 07/09/24 06:51 FiO2 Intake & Output 07/08/24 07/09/24 07/09/24 18:59 06:59 18:59 Output Total 300 150 Balance -300 -150 Output: Urine 300 150 Other: Voiding Method Urinal External Catheter - Labs CBC & Chem 7: 07/08/24 05:50 07/08/24 05:50 Assessment and Plan Assessment: 1. Mid back pain; low back pain; T9/T10 endplate fractures Plan: 1. Mid back pain; low back pain; T9/T10 endplate fractures -CT scan of the thoracolumbar spine does reveal T9/T10 endplate fractures. Due to the acute injury nature of the fractures, patient spine is unstable. We are recommending orthopedic surgical intervention in the form of T8-T11 stabilization for T9/10 endplate fractures. Surgery was cancelled yesterday , 07/08/2024 due to pateitn mental state. Neurology was consulted. Patient is agreeable with this plan. Pain medication as needed. Recommend bedrest at this time. Encourage incentive spirometer use. We do encourage patient to perform gentle range of motion exercises while resting in bed. Pending improvement in patient mental state and medical optimization prior to orthopedic spine surgical intervention. We will continue to follow patient during stay in hospital. 2. Appreciate medical, cardio and neurology management 3. Pain management - norco; flexeril 4. DVT prophylaxis - mechanical 5. GI prophylaxis - senna 6. PT/OT -bedrest. Okay to perform gentle range of motion exercises while resting in bed 7. Encourage incentive spirometer use Time with Patient: Less than 30
--- NOTE | 2024-07-09 12:34 | CT ---
EXAMINATION TYPE: CT brain wo con CT DLP: 1213 mGycm, Automated exposure control for dose reduction was used. DATE OF EXAM: 07/09/2024 11:59 AM COMPARISON: CT brain C-spine 04/22/2023 CLINICAL INDICATION:Male, 84 years old with history of ams, AMS TECHNIQUE: Brain: Multiple axial CT images of the brain were obtained without IV contrast. . Coronal and sagitta l reformats reviewed. FINDINGS: Brain: Extra-axial spaces: No abnormal extra-axial fluid collections. Ventricular system: Prominence of the ventricular system related to cerebral volume loss. Cerebral parenchyma: Mild central cerebral volume loss. No acute intraparenchymal hemorrhage or mass effect. The wall-white junction is well differentiated. Confluent hypoattenuating areas are seen wit hin the white matter in both cerebral hemispheres redemonstrated. Cerebellum: Unremarkable. Mass effect: No evidence of midline shift. Intracranial vasculature: Atherosclerotic calcifications of the intracranial vessels. Soft tissues: Normal. Calvarium/osseous structures: No depressed skull fracture. Metallic artifact from prior plate coverin g right lateral linda hole. Paranasal sinuses and mastoid air cells: Minimal opacification of the left mastoid air cells. Right m astoid air cells are clear. Moderate mucosal thickening of the right sphenoid sinus with layering. Re maining paranasal sinuses are clear. Visualized orbits: Bilateral aphakia IMPRESSION: 1. No acute intracranial process. 2. Severe nonspecific white matter changes redemonstrated, likely secondary to chronic small vessel i schemic disease. 3. Possible acute on chronic right sphenoid sinusitis redemonstrated. [facility], , 07/09/2024 12:32 PM
--- NOTE | 2024-07-09 13:06 | P.PN ---
Subjective Progress Note Date: 07/09/24 84-year-old male with PMH of PVD status post stent of the right common iliac vein, HTN, HLD presented to our facility as a transfer from [facility] for back and right sided hip pain. Patient reported he was walking in the parking lot and stepped up onto the curb with his left leg which is his bad leg and his leg gave out resulting in him falling backwards onto his bottom. Patient underwent evaluation at their facility. CTA chest/abdomen/pelvis was obtained showing acute T9-T10 inferior endplate AP directed extension type fracture with minimal widening at the anterior aspect to to 0.5 cm. Troponin was negative at less than 0.012. Alcohol was less than 10. CBC showed MCV of 98.9. BMP showed Cl of 109, glu 114, BUN 34.4, Cr 1.48, and GFR 48.01. Liver profile unremarkable. Coagulation profile normal findings. Magnesium 1.8. Patient was transferred to [facility] for evaluation by orthospine surgeon. Patient admitted under orthospine surgery team and we were consulted for medical management. 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 Cardiology consulted, patient is above average risk for surgical intervention, however there are no absolute contraindications for him to undergo emergent surgery at this time. Plans for T8-T11 stabilization for T9/T10 endplate fractures with Dr. Hicks on 07/08/2024. 07/08 Patient was seen and examined. He is sleeping comfortably. Denies any complaints. CBC and BMP significant for RBC 3.73, MCV 101.6, BUN 25, glu 117. Mag 1.9. Plans for T8-T11 stabilization for T9/T10 endplate fractures today. 07/09 Patient was seen and examined. He appears confused with mentation waxing and waning. Yesterday, surgery was cancelled due to his confusion and inability to obtain consent. Discussed with case management, in the process of obtaining guardianship. Psychiatry has been consulted for decision making capacity. General: non toxic, no distress, appears at stated age Derm: warm, dry, venous stasis changes lower extremities Head: atraumatic, normocephalic, symmetric Eyes: EOMI, no lid lag, anicteric sclera Mouth: no lip lesion, mucus membranes moist Cardiovascular: S1S2 reg, no murmur Lungs: Clear to auscultation bilaterally, no rhonchi, no rales , no accessory muscle use Abd: Non distended. Non tender to palpation Ext: no gross muscle atrophy, no edema, no contractures Neuro: no focal neuro deficits Psych: Alert, oriented x 1 Based on my assessment of this patient, this patient meets a high complexity level of care. Delirium: Psychiatry consulted for decision making capacity. Window side bed. Avoid sedative medications. Frequent re-direction if needed. Urinary retention: ~ 300 cc per RN. Plans for swan catheter. Preoperative Clearance: METS > 4. Cardiology consulted, intermediate risk to undergo surgery due to his comorbidities and overall poor functional capacity however no absolute contraindications. NSQIP surgical risk calculator, he is at an above average risk of 5.6% with average risk of 3.9% for serious complications, above average risk for cardiac complication at 0.7% with average risk being 0.2% and above average risk of at 0.6% with average risk being 0.2%. Cardiology consulted, intermediate risk to undergo surgery due to his lupe rbidities and overall poor functional capacity however no absolute contraindications. T9 and T10 endplate fracture status post mechanical fall with plans for T8-T11 stabilization for T9/T10 endplate fractures with Dr. Hicks PVD status post stent of right common iliac vein Hypertension: Lisinopril 2.5 mg PO QD. Hyperlipidemia: Lipitor 20 mg PO QHS. BPH: Flomax 0.4 mg PO QHS. CODE STATUS: NO CODE but will need to be changed to FULL CODE prior to surgery. DVT Prophylaxis: SCDs. GI Prophylaxis: Designated medical POA if patient is not able to make medical decisions for themselves: I have reviewed the following consultant technology notes: Cardiology, Ortho note. I have reviewed the results of the following tests: I have ordered the following tests: I have discussed the care of this patient with the following independent historian: RN. I have independently interpreted the following test below: I have discussed the management of this patient with the following physician: Objective - Vital Signs Vital signs: Vital Signs Temp 98.4 F 07/09/24 06:51 Pulse 78 07/09/24 06:51 Resp 18 07/09/24 06:51 BP 95/59 07/09/24 06:51 Pulse Ox 100 07/09/24 06:51 FiO2 Intake & Output 07/08/24 07/09/24 07/09/24 18:59 06:59 18:59 Output Total 300 150 Balance -300 -150 Output: Urine 300 150 Other: Voiding Method Urinal External Catheter - Labs CBC & Chem 7: 07/08/24 05:50 07/08/24 05:50 Labs: Abnormal Lab Results - Last 24 Hours (Table) 07/09/24 Range/Units 12:08 POC Glucose (mg/dL) 114 H (70-110) mg/dL
--- NOTE | 2024-07-09 14:10 | P.CNNES ---
History of Present Illness Consult date: 07/09/24 Requesting physician: Franco Hicks Reason for Consult: new onset confusion History of Present Illness: This is an 84-year-old gentleman with medical history of peripheral vascular disease status post stent, hypertension, hyperlipidemia who transferred from [facility] because of back pain right hip pain. Neurology is consulted for new onset confusion. History is obtained from the medical record as well as the patient nurse. It seems that the patient was walking in the parking lot and stepped onto a curb with his left leg which is his bad leg and his leg gave out resulting in a falling episode backward onto the his buttocks region. He was taken to the outside facility and he had some imaging which shows a T9-T10 inferior endplate acute fracture. It seems that orthopedic surgery wanted to do surgical intervention on him but the patient was too confused for consent. According to the nurse she is having fluctuation of mentation. Patient is having urinary retention and he is in the process of getting Ko catheter. Some of the workup during this hospital visit consisted of: Hemoglobin A1c is 6.3. The head is reported as no acute intracranial process. Severe nonspecific white matter changes redemonstrated. Likely secondary due to chronic small vessel ischemic disease. Possible acute on chronic right sphenoid sinusitis. Review of Systems Limited. Past Medical History Past Medical History: Asthma, Cancer, Hyperlipidemia, Hypertension, Osteoarthritis (OA), Sleep Apnea/CPAP/BIPAP Additional Past Medical History / Comment(s): cpap, fell in october 2013 and fractured left hip, periodontal infection that delayed hip surgery. 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 He has a couple of walkers but does not usually use them. He states he drives. Smoking Status: Former smoker Past Alcohol Use History: None Reported Additional Past Alcohol Use History / Comment(s): Pt started smoking cigars in 3 and quit smoking them in 1998 Past Drug Use History: None Reported - Past Family History Brother(s) Family Medical History: Cancer Additional Family Medical History / Comment(s): kidney,liver Medications and Allergies Home Medications Medication Instructions Recorded Confirmed Type PARoxetine HCL [Paxil] 40 mg PO DAILY 06/08/14 07/06/24 History Folic Acid 1 mg PO DAILY 07/12/21 07/06/24 History Tamsulosin [Flomax] 0.4 mg PO DAILY 07/12/21 07/06/24 History metFORMIN HCL [Glucophage] 500 mg PO Q2D 02/05/22 07/06/24 History lisinopriL 2.5 mg PO DAILY 04/23/23 07/06/24 History Ferrous Sulfate [Iron (65 MG 325 mg PO DAILY 07/06/24 07/06/24 History Elemental)] Allergies Allergy/AdvReac Type Severity Reaction Status Date / Time Penicillins Allergy Rash/Hives Verified 07/06/24 09:09 Physical Examination - Vital Signs Vital Signs: Vital Signs Temp Pulse Resp BP Pulse Ox 07/09/24 06:51 98.4 F 78 18 95/59 100 07/09/24 02:00 98.5 F 74 104/61 91 L 07/08/24 20:00 98.1 F 76 105/67 91 L 07/08/24 17:11 97.9 F 85 16 109/55 90 L 07/08/24 16:14 98.8 F 84 22 138/74 91 L Intake and Output 07/08/24 07/09/24 07/09/24 22:59 06:59 14:59 Output Total 300 150 Balance -300 -150 Output: Urine 300 150 Other: Voiding Method External Catheter General: Lying in bed and does not appear in acute distress. NEURO: Limited. Patient is oriented to self initially he did not know the year but then later he stated it was 192. He is able to name pen. Upon asking him the name of when he stated it the computer. Patient is making good eye contact No facial weakness. No dysarthria. He refused to cooperate with examination and wanted to be left alone. Results - Laboratory Findings CBC and BMP: 07/08/24 05:50 07/08/24 05:50 Abnormal Lab Findings: Abnormal Labs 07/06/24 07/07/24 07/07/24 12:10 05:37 11:23 RBC Hct MCV MCH RDW Chloride BUN Glucose POC Glucose (mg/dL) 125 H 121 H Hemoglobin A1c 6.3 H 07/07/24 07/07/24 07/08/24 14:24 14:24 05:50 RBC 4.20 L 3.73 L Hct 37.9 L MCV 101.6 H MCH 35.7 H RDW 19.6 H Chloride 109 H BUN 26 H Glucose 123 H POC Glucose (mg/dL) Hemoglobin A1c 07/08/24 07/08/24 07/09/24 05:50 06:18 12:08 RBC Hct MCV MCH RDW Chloride BUN 25 H Glucose 117 H POC Glucose (mg/dL) 124 H 114 H Hemoglobin A1c Assessment and Plan Assessment: This is an 84-year-old gentleman who was transferred from outside hospital on 07/06/2024 for a fall in which his foot got stuck in a curb that resulted in a fall and he had imaging at the outpatient facility and it showed T9-T10 acute fracture. During this hospital visit patient is having fluctuation in mentation Delirium likely hospital induced. CT of the head is unremarkable for any acute or subacute process Acute T9-T10 fracture. History of peripheral vascular disease status post stenting Hypertension Hyperlipidemia Plan: I ordered ammonia level, TSH, vitamin B12 folate I ordered routine EEG If patient continues to have further confusion recommend pursuing MRI of the brain without gadolinium If possible try to limit opiates/sedatives Will defer the rest of the medical management to primary and other specialist Plan discussed with patient primary team as well as his nurse Thank you for the consultation Time with Patient: Greater than 30
--- NOTE | 2024-07-09 16:57 | P.GSCN ---
History of Present Illness Consult date: 07/09/24 Reason for Consult: Urinary retention, phimosis History of present illness: This is a 84-year-old male with T9-T10 fracture. Urologist consulted for urinary retention. Patient has been continued to have elevated residual, attempt to place Ko catheter by nursing staff was unsuccessful secondary to significant phimosis. Thus urology was consulted. Patient was confused on evaluation thus a limited history was obtained, but known known history of voiding dysfunction at baseline, he denies any gross hematuria or dysuria. No known previous history of urinary retention. Review of Systems ROS unobtainable: due to mental status Past Medical History Past Medical History: Asthma, Cancer, Hyperlipidemia, Hypertension, Osteoarthritis (OA), Sleep Apnea/CPAP/BIPAP Additional Past Medical History / Comment(s): cpap, fell in october 2013 and fractured left hip, periodontal infection that delayed hip surgery. 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 He has a couple of walkers but does not usually use them. He states he drives. Smoking Status: Former smoker Past Alcohol Use History: None Reported Additional Past Alcohol Use History / Comment(s): Pt started smoking cigars in 1953 and quit smoking them in 1998 Past Drug Use History: None Reported - Past Family History Brother(s) Family Medical History: Cancer Additional Family Medical History / Comment(s): kidney,liver Medications and Allergies Home Medications Medication Instructions Recorded Confirmed Type PARoxetine HCL [Paxil] 40 mg PO DAILY 06/08/14 07/06/24 History Folic Acid 1 mg PO DAILY 07/12/21 07/06/24 History Tamsulosin [Flomax] 0.4 mg PO DAILY 07/12/21 07/06/24 History metFORMIN HCL [Glucophage] 500 mg PO Q2D 02/05/22 07/06/24 History lisinopriL 2.5 mg PO DAILY 04/23/23 07/06/24 History Ferrous Sulfate [Iron (65 MG 325 mg PO DAILY 07/06/24 07/06/24 History Elemental)] Allergies Allergy/AdvReac Type Severity Reaction Status Date / Time Penicillins Allergy Rash/Hives Verified 07/06/24 09:09 Surgical - Exam Vital Signs Temp Pulse Resp BP Pulse Ox 97.3 F L 62 16 118/71 96 07/06/24 03:15 07/06/24 03:15 07/06/24 03:15 07/06/24 03:15 07/06/24 03:15 - General no distress, no pain - ENT normal nares, normal mucosa - Respiratory normal expansion, normal respiratory effort - Abdomen Abdomen: soft, non tender - Genitourinary Significant phimosis, was unable to reduce the foreskin testicles present Results - Labs 07/08/24 05:50 07/08/24 05:50 Abnormal Lab Results - Last 24 Hours (Table) 07/09/24 Range/Units 12:08 POC Glucose (mg/dL) 114 H (70-110) mg/dL Assessment and Plan Assessment: 84-year-old male with history of urinary retention, urologist consulted for Ko catheter placement due to his significant phimosis. I was able to place a 14 Algerian silicone catheter I was unable to reduce the phimosis, additionally patient had evidence of meatal stenosis. At this time recommend keeping the Ko catheter until patient is close for discharge, of note patient has a potentially undergoing an orthopedic surgery, at this point would definitely recommend keeping the catheter until after he completes his procedure and he is closer to discharge
--- NOTE | 2024-07-09 16:58 | P.PCN ---
Date of Procedure: 07/09/24 Preoperative Diagnosis: Phimosis, urinary retention Postoperative Diagnosis: Same Procedure(s) Performed: Complicated Ko catheter placement Description of Procedure: Penis was prepped in Betadine, I attempted to reduce the foreskin was was unable to given the significant phimosis, at this point using a 14 Italian silicone catheter I was able to advance it through the phimosis, I was able to cannulate the meatus but patient had significant meatal stenosis I was eventually able to advance the catheter past the area of stenosis and into the bladder with a return of clear urine. Patient tolerated procedure well
[2024-07-09 17:03] LABS: Glucose,Whole Blood 130 mg/dL (70-110)
--- NOTE | 2024-07-09 17:48 | P.CN ---
Psychiatric Consult - . Consult date: 07/09/24 Consult:: 07/09/24 17:44 CONSULTATION Reason for consult: Competency Evaluation Identifying Data: The patient is a 84 years, old, single, white male, who lives in [place], [place] HPI: The patient was admitted to the hospital for thoracic spine fracture after a fall. Initially, he was taken to [facility] and after initial work he was transferred here for further management. During this evaluation, the patient reported was unable to give some of the history about fall but he was getting confused and forgetting some of history of his fall and getting to [facility] and then coming here. He was able to keep sustained alertness and attention. He was aware of his circumstances but was unable to put everything in a chronological order. He was oriented to date, month, year, place and person. No hallucinatory behavior was noted> No paranoia was noted. History of past psychiatric illness: No past h/o psychiatric disorder. . No history of suicidal or homicidal ideations or behavior. Past medical history: As per EMR Substance abuse history: None : MSE: Alert and attentive Orientation X3. Pleasant and cooperative. Psychomotor activity: Normal Speech: Normal tone, quality, and quantity Mood: Fine. Affect: Anxious. SI or HI: None Thought content: Normal Thought process: Normal Perceptual disturbance: Normal Cognition: Mild confusion, mild deficit in memory. Judgement and Insight: Intact Diagnosis: Neurocognitive deficit secondary to systemic causes- resolving. The patient is not able to make resonable medical decision currenty.
[2024-07-09 21:15] LABS: Glucose,Whole Blood 112 mg/dL (70-110)
[2024-07-09] MEDS: QUEtiapine 25 MG TAB PO STA (21:59)
--- NOTE | 2024-07-09 22:46 | EEG ---
ELECTROENCEPHALOGRAM REPORT CLINICAL HISTORY: This is an 84-year-old gentleman with altered mental status. The video EEG is obtained to evaluate for seizure epileptiform activity. RELEVANT MEDICATIONS: Flexeril and Dilaudid. EEG TYPE: This is a routine 21-channel EEG with video using the 10/20 electrode placement system. DESCRIPTION: Wakefulness is only obtained. During awake state, the background consists of low-to- moderate voltage of 6.5 to 7 hertz activity and at times alternating with diffuse nonrhythmic delta activity. There was no physiological stage 2 sleep architecture. There is no focal slowing. There is moderate to severe myogenic artifact over the right hemisphere. Interictal and ictal is none. ACTIVATION PROCEDURE: Photic stimulation and hyperventilation are not performed. CLINICAL INTERPRETATION: This is an abnormal routine EEG. The background slowing is suggestive of moderate encephalopathy. There is no focal slowing, epileptiform discharge, or seizure on the EEG. Clinical correlation is recommended. YEFRI / CECE: [id number] /
[2024-07-10 05:41] LABS: Glucose,Whole Blood 130 mg/dL (70-110)
--- NOTE | 2024-07-10 08:46 | P.PN ---
Subjective Progress Note Date: 07/10/24 Patient pulled his catheter balloon port out yesterday and subsequently the catheter fell. Denies any gross hematuria Objective - Vital Signs Vital signs: Vital Signs Temp 98.6 F 07/10/24 07:02 Pulse 65 07/10/24 07:02 Resp 19 07/10/24 07:02 BP 105/76 07/10/24 07:02 Pulse Ox 95 07/10/24 07:02 FiO2 Intake & Output 07/09/24 07/10/24 07/10/24 18:59 06:59 18:59 Output Total 600 Balance -600 Output: Urine 600 Other: Voiding Method Indwelling Catheter Indwelling Catheter # Bowel Movements 1 - Constitutional General appearance: Present: no acute distress - Gastrointestinal General gastrointestinal: Present: soft. Absent: distended, tenderness - Psychiatric Psychiatric: Present: A&O x's 3 - Labs CBC & Chem 7: 07/08/24 05:50 07/08/24 05:50 Labs: Abnormal Lab Results - Last 24 Hours (Table) 07/09/24 07/09/24 07/09/24 Range/Units 12:08 17:01 21:14 POC Glucose (mg/dL) 114 H 130 H 112 H (70-110) mg/dL 07/10/24 Range/Units 05:40 POC Glucose (mg/dL) 130 H (70-110) mg/dL Assessment and Plan Assessment: 84-year-old male with history of urinary retention, urologist consulted for Ko catheter placement due to his significant phimosis. I was able to place a 14 Samoan silicone catheter yesterday, patient was confused last night and pulled the balloon port out of the catheter and subsequently the catheter fell. I reinserted the new 614 Samoan silicone catheter today.I was unable to reduce the phimosis, additionally patient had evidence of meatal stenosis. At this time recommend keeping the Ko catheter until patient is close for discharge, of note patient has a potentially undergoing an orthopedic surgery, at this point would definitely recommend keeping the catheter until after he completes his procedure and he is closer to discharge
--- NOTE | 2024-07-10 08:47 | P.PCN ---
Date of Procedure: 07/10/24 Preoperative Diagnosis: Urinary retention, phimosis Postoperative Diagnosis: Same Procedure(s) Performed: Catheter placement (complicated) Description of Procedure: Patient penis was prepped with Betadine. I was unable to reduce the foreskin secondary to significant phimosis. At this time the glans could be palpated next a 14 Cook Islander silicone catheter was advanced through the meatus and into the bladder with the return of clear urine. Patient tolerated procedure well
--- NOTE | 2024-07-10 11:13 | P.PN ---
Subjective Progress Note Date: 07/10/24 84-year-old male with PMH of PVD status post stent of the right common iliac vein, HTN, HLD presented to our facility as a transfer from [facility] for back and right sided hip pain. Patient reported he was walking in the parking lot and stepped up onto the curb with his left leg which is his bad leg and his leg gave out resulting in him falling backwards onto his bottom. Patient underwent evaluation at their facility. CTA chest/abdomen/pelvis was obtained showing acute T9-T10 inferior endplate AP directed extension type fracture with minimal widening at the anterior aspect to to 0.5 cm. Troponin was negative at less than 0.012. Alcohol was less than 10. CBC showed MCV of 98.9. BMP showed Cl of 109, glu 114, BUN 34.4, Cr 1.48, and GFR 48.01. Liver profile unremarkable. Coagulation profile normal findings. Magnesium 1.8. Patient was transferred to [facility] for evaluation by orthospine surgeon. Patient admitted under orthospine surgery team and we were consulted for medical management. 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 Cardiology consulted, patient is above average risk for surgical intervention, however there are no absolute contraindications for him to undergo emergent surgery at this time. Plans for T8-T11 stabilization for T9/T10 endplate fractures with Dr. Hicks on 07/08/2024. 07/08 Patient was seen and examined. He is sleeping comfortably. Denies any complaints. CBC and BMP significant for RBC 3.73, MCV 101.6, BUN 25, glu 117. Mag 1.9. Plans for T8-T11 stabilization for T9/T10 endplate fractures today. 07/09 Patient was seen and examined. He appears confused with mentation waxing and waning. Yesterday, surgery was cancelled due to his confusion and inability to obtain consent. Discussed with case management, in the process of obtaining guardianship. Psychiatry has been consulted for decision making capacity. 07/10 Patient was seen and examined. Agitated overnight requiring sitter. Psychiatry patient does not have decision making capacity. Urology consulted for successful Ko placement 07/09. Neurology consulted, recommends EEG, Ammonia, TSH, B12, Folate. Ammonia is < 9. B12 539, Folate 22.8, TSH 0.739. EEG shows moderate encephalopathy. Discussed with Dr. Carbajal, start Seroquel QHS. General: non toxic, no distress, appears at stated age Derm: warm, dry, venous stasis changes lower extremities Head: atraumatic, normocephalic, symmetric Eyes: EOMI, no lid lag, anicteric sclera Mouth: no lip lesion, mucus membranes moist Cardiovascular: S1S2 reg, no murmur Lungs: Clear to auscultation bilaterally, no rhonchi, no rales , no accessory muscle use Abd: Non distended. Non tender to palpation Ext: no gross muscle atrophy, no edema, no contractures Neuro: no focal neuro deficits Psych: Alert, oriented x 1 Based on my assessment of this patient, this patient meets a high complexity level of care. Delirium: Psychiatry consulted for decision making capacity. Window side bed. Avoid sedative medications. Frequent re-direction if needed. B12, TSH, Folate, Ammonia wnl. EEG wnl. Seroquel 12.5 mg PO QHS. Neurology and Psychiatry on board. Urinary retention: ~ 300 cc per RN. Successful insertion of Ko catheter by Urology on 07/09. Preoperative Clearance: METS > 4. Cardiology consulted, intermediate risk to undergo surgery due to his comorbidities and overall poor functional capacity however no absolute contraindications. NSQIP surgical risk calculator, he is at an above average risk of 5.6% with average risk of 3.9% for serious complications, above average risk for cardiac complication at 0.7% with average risk being 0.2% and above average risk of at 0.6% with average risk being 0.2%. Cardiology consulted, intermediate risk to undergo surgery due to his comorbidities and overall poor functional capacity however no absolute contraindications. T9 and T10 endplate fracture status post mechanical fall with plans for T8-T11 stabilization for T9/T10 endplate fractures with Dr. Hicks PVD status post stent of right common iliac vein Hypertension: Lisinopril 2.5 mg PO QD. Hyperlipidemia: Lipitor 20 mg PO QHS. BPH: Flomax 0.4 mg PO QHS. Patient will need guardianship prior to surgery. Will discuss with Case management on Friday. CODE STATUS: NO CODE but will need to be changed to FULL CODE prior to surgery. DVT Prophylaxis: SCDs. GI Prophylaxis: Designated medical POA if patient is not able to make medical decisions for themselves: I have reviewed the following internet sales consultant notes: Neurology, Psychiatry note. I have reviewed the results of the following tests: Ammonia, B12, Folate, TSH I have ordered the following tests: I have discussed the care of this patient with the following independent historian: RN. I have independently interpreted the following test below: I have discussed the management of this patient with the following physician: Dr. Carbajal. Objective - Vital Signs Vital signs: Vital Signs Temp 98.6 F 07/10/24 07:02 Pulse 65 07/10/24 07:02 Resp 19 07/10/24 07:02 BP 105/76 07/10/24 07:02 Pulse Ox 95 07/10/24 07:02 FiO2 Intake & Output 07/09/24 07/10/24 07/10/24 18:59 06:59 18:59 Output Total 600 Balance -600 Output: Urine 600 Other: Voiding Method Indwelling Catheter Indwelling Catheter - Labs CBC & Chem 7: 07/08/24 05:50 07/08/24 05:50 Labs: Abnormal Lab Results - Last 24 Hours (Table) 07/09/24 07/09/24 07/09/24 Range/Units 12:08 17:01 21:14 POC Glucose (mg/dL) 114 H 130 H 112 H (70-110) mg/dL 07/10/24 Range/Units 05:40 POC Glucose (mg/dL) 130 H (70-110) mg/dL
[2024-07-10] MEDS ORDERED: HALOPERIDOL LACTATE 5 MG/ML 1 ML VIAL IVP PRN (11:35)
[2024-07-10 11:39] LABS: Glucose,Whole Blood 132 mg/dL (70-110)
[2024-07-10] MEDS ORDERED: HALOPERIDOL LACTATE 5 MG/ML 1 ML VIAL IM PRN (11:41)
--- NOTE | 2024-07-10 13:27 | P.PN ---
Subjective Progress Note Date: 07/10/24 Overnight the patient is agitated, restless and he was started on Seroquel. Today he is more cooperative and less agitated or restless. Objective - Vital Signs Vital signs: Vital Signs Temp 98.6 F 07/10/24 07:02 Pulse 65 07/10/24 07:02 Resp 19 07/10/24 07:02 BP 105/76 07/10/24 07:02 Pulse Ox 95 07/10/24 07:02 FiO2 Intake & Output 07/09/24 07/10/24 07/10/24 18:59 06:59 18:59 Output Total 600 Balance -600 Output: Urine 600 Other: Voiding Method Indwelling Catheter Indwelling Catheter # Bowel Movements 1 - Exam General: Lying in bed and is not in acute distress. Neuro: Somewhat limited. Patient is awake, alert, oriented to self and time. Upon asking him about this place he stated he is shopping for a home now. He is able to follow simple commands. No facial weakness. No dysathria. Motor: Strength is limited but lifting upper extremities above gravity. Some of the workup during this hospital visit consisted of: Hemoglobin A1c is 6.3. Vitamin B12: 539 Folate: 22.8 TSH: 0.739 CT head is reported as no acute intracranial process. Severe nonspecific white matter changes redemonstrated. Likely secondary due to chronic small vessel ischemic disease. Possible acute on chronic right sphenoid sinusitis. Routine EEG: Is abnormal. The background slowing is suggestive of moderate encephalopathy. There is no focal slowing, epileptiform discharge or seizure on the EEG. - Labs CBC & Chem 7: 07/08/24 05:50 07/08/24 05:50 Labs: Abnormal Lab Results - Last 24 Hours (Table) 07/09/24 07/09/24 07/10/24 Range/Units 17:01 21:14 05:40 POC Glucose (mg/dL) 130 H 112 H 130 H (70-110) mg/dL 07/10/24 Range/Units 11:36 POC Glucose (mg/dL) 132 H (70-110) mg/dL Assessment and Plan Assessment: This is an 84-year-old gentleman who was transferred from outside hospital on 07/06/2024 for a fall in which his foot got stuck in a curb that resulted in a fall and he had imaging at the outpatient facility and it showed T9-T10 acute fracture. During this hospital visit patient is having fluctuation in mentation Delirium likely hospital induced and his medication. CT of the head is unremarkable for any acute or subacute process. EEG is moderate encephalopathy but no discharges or seizure Acute T9-T10 fracture. History of peripheral vascular disease status post stenting Hypertension Hyperlipidemia Plan: If patient continues to have further confusion recommend pursuing MRI of the brain without gadolinium but currently will hold off since it seems it is better during morning/day but worse at night and has sun-downing. He is on Seroquel 12.5mg qhs by primary team and that can be increased to 25mg qhs and if needed 50mg qhs. He is also on Haldol 0.5mg IM PRN. If possible try to limit opiates/sedatives Patient does not have capacity at this time because of his confusion to give consent from neurological perspective. If surgery is emergent and the benefit outweigh the risk then can proceed with surgery if no family members can provide. Will defer the rest of the medical management to primary and other specialist Plan discussed with patient primary team as well as his nurse Will follow-up with patient sporadically. Time with Patient: Less than 30
[2024-07-10 13:54] LABS: Appearance,Urine Clear (Clear); Bilirubin,Urine Negative (Negative); Blood,Urine Small (Negative); Color,Urine Light Yellow; Glucose,Urine (UA) Negative (Negative); Ketones,Urine 1+ (Negative); Leukocyte Esterase,Urine Moderate (Negative); Mucus,Urine Rare /hpf; Nitrite,Urine Negative (Negative); PH, Urine 5.5 (5.0-8.0); Protein,Urine Trace (Negative); RBC,Urine 22 /hpf (0-5); Specific Gravity,Urine 1.022 (1.001-1.035); Urobilinogen,Urine <2.0 mg/dL (<2.0); WBC,Urine 3 /hpf (0-5)
--- NOTE | 2024-07-10 14:12 | P.PN ---
Progress Note - Text Progress Note Date: 07/10/24 Chief complaint: T9-10 AO B2 EXTENSION TYPE FRACTURE THROUGH ANKYLOSED SPINE, altered mental status Patient was evaluated today at bedside, he is resting in his hospital bed. Patient seems more coherent today, neurology and internal medicine have been adjusting medications. Most recent note from internal medicine states discussing with case management on Friday power of prosecuting attorney options. Surgical intervention is still warranted at this time. Patient to remain on bedrest lying flat. We will continue to monitor patient during hospital stay.
[2024-07-10 16:34] LABS: Glucose,Whole Blood 114 mg/dL (70-110)
[2024-07-10 21:21] LABS: Glucose,Whole Blood 392 mg/dL (70-110)
[2024-07-10] MEDS: QUEtiapine 25 MG TAB PO SCH (22:11)
[2024-07-11 05:49] LABS: Glucose,Whole Blood 157 mg/dL (70-110)
[2024-07-11 08:15] LABS: HCT 38.6 % (39.0-53.0); HGB 13.1 gm/dL (13.0-17.5); MCH 32.2 pg (25.0-35.0); MCHC 33.9 g/dL (31.0-37.0); Mean Platelet Volume 7.4; Platelet Count 205 k/uL (150-450); RBC 4.07 m/uL (4.30-5.90); RDW 13.8 % (11.5-15.5)
[2024-07-11 08:28] LABS: African American GFR (CKD) 75 (>60 ml/min/1.73 sqM); Anion Gap 8 mmol/L; Blood Urea Nitrogen 28 mg/dL (9-20); Calcium 8.8 mg/dL (8.4-10.2); Carbon Dioxide 28 mmol/L (22-30); Chloride 104 mmol/L (98-107); Glucose 156 mg/dL (74-99); Non-African American GFR(CKD) 65 (>60 ml/min/1.73 sqM); Potassium 3.6 mmol/L (3.5-5.1); Sodium 140 mmol/L (137-145)
--- NOTE | 2024-07-11 10:22 | P.PN ---
Subjective No acute overnight event, urine is clear, he is not having any bleeding around the catheter. Patient mental status is improved today Objective - Vital Signs Vital signs: Vital Signs Temp 98.3 F 07/11/24 06:48 Pulse 85 07/11/24 06:48 Resp 16 07/11/24 06:48 BP 116/73 07/11/24 06:48 Pulse Ox 96 07/11/24 06:48 FiO2 Intake & Output 07/10/24 07/11/24 07/11/24 18:59 06:59 18:59 Output Total 620 375 Balance -620 -375 Output: Urine 620 375 Other: Voiding Method Indwelling Catheter # Bowel Movements 1 - Constitutional General appearance: Present: no acute distress - Gastrointestinal General gastrointestinal: Present: soft. Absent: distended, tenderness - Labs CBC & Chem 7: 07/11/24 07:53 07/11/24 07:53 Labs: Abnormal Lab Results - Last 24 Hours (Table) 07/10/24 07/10/24 07/10/24 Range/Units 11:36 13:15 16:32 RBC (4.30-5.90) m/uL Hct (39.0-53.0) % BUN (9-20) mg/dL Glucose (74-99) mg/dL POC Glucose (mg/dL) 132 H 114 H (70-110) mg/dL Urine Protein Trace H (Negative) Urine Ketones 1+ H (Negative) Urine Blood Small H (Negative) Ur Leukocyte Esterase Moderate H (Negative) Urine RBC 22 H (0-5) /hpf Urine Mucus Rare H (None) /hpf 07/10/24 07/11/24 07/11/24 Range/Units 21:19 05:47 07:53 RBC 4.07 L (4.30-5.90) m/uL Hct 38.6 L (39.0-53.0) % BUN (9-20) mg/dL Glucose (74-99) mg/dL POC Glucose (mg/dL) 392 H 157 H (70-110) mg/dL Urine Protein (Negative) Urine Ketones (Negative) Urine Blood (Negative) Ur Leukocyte Esterase (Negative) Urine RBC (0-5) /hpf Urine Mucus (None) /hpf 07/11/24 Range/Units 07:53 RBC (4.30-5.90) m/uL Hct (39.0-53.0) % BUN 28 H (9-20) mg/dL Glucose 156 H (74-99) mg/dL POC Glucose (mg/dL) (70-110) mg/dL Urine Protein (Negative) Urine Ketones (Negative) Urine Blood (Negative) Ur Leukocyte Esterase (Negative) Urine RBC (0-5) /hpf Urine Mucus (None) /hpf Assessment and Plan Assessment: 84-year-old male with history of urinary retention, urologist consulted for Ko catheter placement due to his significant phimosis. I was able to place a 14 [place] silicone catheter 07/09 , patient was confused and pulled the balloon port out of the catheter and subsequently the catheter fell. I reinserted the new 14 [place] silicone catheter 07/10 . No issues with gross hematuria, or patient pulling on the catheter last night. At this time recommend keeping the Ko catheter until patient is close for discharge, of note patient has a potentially undergoing an orthopedic surgery, at this point would definitely recommend keeping the catheter until after he completes his procedure and he is closer to discharge
--- NOTE | 2024-07-11 11:28 | P.PN ---
Subjective Progress Note Date: 07/11/24 84-year-old male with PMH of PVD status post stent of the right common iliac vein, HTN, HLD presented to our facility as a transfer from [facility] for back and right sided hip pain. Patient reported he was walking in the parking lot and stepped up onto the curb with his left leg which is his bad leg and his leg gave out resulting in him falling backwards onto his bottom. Patient underwent evaluation at their facility. CTA chest/abdomen/pelvis was obtained showing acute T9-T10 inferior endplate AP directed extension type fracture with minimal widening at the anterior aspect to to 0.5 cm. Troponin was negative at less than 0.012. Alcohol was less than 10. CBC showed MCV of 98.9. BMP showed Cl of 109, glu 114, BUN 34.4, Cr 1.48, and GFR 48.01. Liver profile unremarkable. Coagulation profile normal findings. Magnesium 1.8. Patient was transferred to [facility] for evaluation by orthospine surgeon. Patient admitted under orthospine surgery team and we were consulted for medical management. 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 Cardiology consulted, patient is above average risk for surgical intervention, however there are no absolute contraindications for him to undergo emergent surgery at this time. Plans for T8-T11 stabilization for T9/T10 endplate fractures with Dr. Hicks on 07/08/2024. 07/08 Patient was seen and examined. He is sleeping comfortably. Denies any complaints. CBC and BMP significant for RBC 3.73, MCV 101.6, BUN 25, glu 117. Mag 1.9. Plans for T8-T11 stabilization for T9/T10 endplate fractures today. 07/09 Patient was seen and examined. He appears confused with mentation waxing and waning. Yesterday, surgery was cancelled due to his confusion and inability to obtain consent. Discussed with case management, in the process of obtaining guardianship. Psychiatry has been consulted for decision making capacity. 07/10 Patient was seen and examined. Agitated overnight requiring sitter. Psychiatry patient does not have decision making capacity. Urology consulted for successful Ko placement 07/09. Neurology consulted, recommends EEG, Ammonia, TSH, B12, Folate. Ammonia is < 9. B12 539, Folate 22.8, TSH 0.739. EEG shows moderate encephalopathy. Discussed with Dr. Carbajal, start Seroquel QHS. 07/11 Patient was seen and examined. Sleeping comfortably. No events overnight. C BC and BMP significant for RBC 4.07, Hct 38.6, BUN 28, glu 156. General: non toxic, no distress, appears at stated age Derm: warm, dry, venous stasis changes lower extremities Head: atraumatic, normocephalic, symmetric Eyes: EOMI, no lid lag, anicteric sclera Mouth: no lip lesion, mucus membranes moist Cardiovascular: S1S2 reg, no murmur Lungs: Clear to auscultation bilaterally, no rhonchi, no rales , no accessory muscle use Abd: Non distended. Non tender to palpation Ext: no gross muscle atrophy, no edema, no contractures Neuro: no focal neuro deficits Psych: Alert, oriented x 1 Based on my assessment of this patient, this patient meets a high complexity level of care. Delirium: Psychiatry consulted patient does not have decision making capacity. Window side bed. Avoid sedative medications. Frequent re-direction if needed. B12, TSH, Folate, Ammonia wnl. EEG wnl. Seroquel 12.5 mg PO QHS. Haldol IM PRN for agitation. Neurology and Psychiatry on board. Urinary retention: ~ 300 cc per RN. Successful insertion of Ko catheter by Urology on 07/09. Preoperative Clearance: METS > 4. Cardiology consulted, intermediate risk to undergo surgery due to his comorbidities and overall poor functional capacity however no absolute contraindications. NSQIP surgical risk calculator, he is at an above average risk of 5.6% with average risk of 3.9% for serious complications, above average risk for cardiac complication at 0.7% with average risk being 0.2% and above average risk of at 0.6% with average risk being 0.2%. Cardiology consulted, intermediate risk to undergo surgery due to his comorbidities and overall poor functional capacity however no absolute contraindications. T9 and T10 endplate fracture status post mechanical fall with plans for T8-T11 stabilization for T9/T10 endplate fractures with Dr. Hicks PVD status post stent of right common iliac vein Hypertension: Lisinopril 2.5 mg PO QD. Hyperlipidemia: Lipitor 20 mg PO QHS. BPH: Flomax 0.4 mg PO QHS. Patient will need guardianship prior to surgery. Will discuss with Case management on Friday. CODE STATUS: Will switch to FULL CODE. DVT Prophylaxis: SCDs. GI Prophylaxis: Designated medical POA if patient is not able to make medical decisions for themselves: I have reviewed the following performance management consultant notes: Neurology, Urology note. I have reviewed the results of the following tests: CBC, BMP. I have ordered the following tests: I have discussed the care of this patient with the following independent h istorian: DANNIELLE. I have independently interpreted the following test below: I have discussed the management of this patient with the following physician: Objective - Vital Signs Vital signs: Vital Signs Temp 98.3 F 07/11/24 06:48 Pulse 85 07/11/24 06:48 Resp 16 07/11/24 06:48 BP 116/73 07/11/24 06:48 Pulse Ox 96 07/11/24 06:48 FiO2 Intake & Output 07/10/24 07/11/24 07/11/24 18:59 06:59 18:59 Output Total 620 375 Balance -620 -375 Output: Urine 620 375 Other: Voiding Method Indwelling Catheter # Bowel Movements 1 - Labs CBC & Chem 7: 07/11/24 07:53 07/11/24 07:53 Labs: Abnormal Lab Results - Last 24 Hours (Table) 07/10/24 07/10/24 07/10/24 Range/Units 11:36 13:15 16:32 RBC (4.30-5.90) m/uL Hct (39.0-53.0) % BUN (9-20) mg/dL Glucose (74-99) mg/dL POC Glucose (mg/dL) 132 H 114 H (70-110) mg/dL Urine Protein Trace H (Negative) Urine Ketones 1+ H (Negative) Urine Blood Small H (Negative) Ur Leukocyte Esterase Moderate H (Negative) Urine RBC 22 H (0-5) /hpf Urine Mucus Rare H (None) /hpf 07/10/24 07/11/24 07/11/24 Range/Units 21:19 05:47 07:53 RBC 4.07 L (4.30-5.90) m/uL Hct 38.6 L (39.0-53.0) % BUN (9-20) mg/dL Glucose (74-99) mg/dL POC Glucose (mg/dL) 392 H 157 H (70-110) mg/dL Urine Protein (Negative) Urine Ketones (Negative) Urine Blood (Negative) Ur Leukocyte Esterase (Negative) Urine RBC (0-5) /hpf Urine Mucus (None) /hpf 07/11/24 Range/Units 07:53 RBC (4.30-5.90) m/uL Hct (39.0-53.0) % BUN 28 H (9-20) mg/dL Glucose 156 H (74-99) mg/dL POC Glucose (mg/dL) (70-110) mg/dL Urine Protein (Negative) Urine Ketones (Negative) Urine Blood (Negative) Ur Leukocyte Esterase (Negative) Urine RBC (0-5) /hpf Urine Mucus (None) /hpf
[2024-07-11 11:41] LABS: Glucose,Whole Blood 116 mg/dL (70-110)
[2024-07-11 17:00] LABS: Glucose,Whole Blood 132 mg/dL (70-110)
[2024-07-11 21:13] LABS: Glucose,Whole Blood 106 mg/dL (70-110)
[2024-07-12 06:04] LABS: Glucose,Whole Blood 116 mg/dL (70-110)
--- NOTE | 2024-07-12 10:33 | P.PN ---
Subjective Progress Note Date: 07/12/24 84-year-old male with PMH of PVD status post stent of the right common iliac vein, HTN, HLD presented to our facility as a transfer from [facility] for back and right sided hip pain. Patient reported he was walking in the parking lot and stepped up onto the curb with his left leg which is his bad leg and his leg gave out resulting in him falling backwards onto his bottom. Patient underwent evaluation at their facility. CTA chest/abdomen/pelvis was obtained showing acute T9-T10 inferior endplate AP directed extension type fracture with minimal widening at the anterior aspect to to 0.5 cm. Troponin was negative at less than 0.012. Alcohol was less than 10. CBC showed MCV of 98.9. BMP showed Cl of 109, glu 114, BUN 34.4, Cr 1.48, and GFR 48.01. Liver profile unremarkable. Coagulation profile normal findings. Magnesium 1.8. Patient was transferred to [facility] for evaluation by orthospine surgeon. Patient admitted under orthospine surgery team and we were consulted for medical management. 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 Cardiology consulted, patient is above average risk for surgical intervention, however there are no absolute contraindications for him to undergo emergent surgery at this time. Plans for T8-T11 stabilization for T9/T10 endplate fractures with Dr. Hicks on 07/08/2024. Surgery was cancelled due to his confusion and inability to obtain consent. Ammonia is < 9, B12 539, Folate 22.8, TSH 0.739, EEG showed moderate encephalopathy. Psychiatry reported that the patient does not have decision making capacity. Started on Seroquel 12.5 mg PO QHS. Case management on board for guardianship. 07/12 Patient was seen and examined. No events overnight. Mumbling words to himself with eyes closed. Sitter at bedside. No new labs done today. General: non toxic, no distress, appears at stated age Derm: warm, dry, venous stasis changes lower extremities Head: atraumatic, normocephalic, symmetric Eyes: EOMI, no lid lag, anicteric sclera Mouth: no lip lesion, mucus membranes moist Cardiovascular: S1S2 reg, no murmur Lungs: Clear to auscultation bilaterally, no rhonchi, no rales , no accessory muscle use Abd: Non distended. Non tender to palpation, + Ko Ext: no gross muscle atrophy, no edema, no contractures Neuro: no focal neuro deficits Psych: Alert, oriented x 1-2 Based on my assessment of this patient, this patient meets a high complexity level of care. Delirium: Psychiatry consulted patient does not have decision making capacity. Window side bed. Avoid sedative medications. Frequent re-direction if needed. B12, TSH, Folate, Ammonia, EEG wnl. Seroquel 12.5 mg PO QHS. Haldol IM PRN for agitation. Neurology and Psychiatry on board. Urinary retention: ~ 300 cc per RN. Successful insertion of Ko catheter by Urology on 07/09. Preoperative Clearance: METS > 4. Cardiology consulted, intermediate risk to undergo surgery due to his comorbidities and overall poor functional capacity however no absolute contraindications. NSQIP surgical risk calculator, he is at an above average risk of 5.6% with average risk of 3.9% for serious complications, above average risk for cardiac complication at 0.7% with average risk being 0.2% and above average risk of at 0.6% with average risk being 0.2%. Cardiology consulted, intermediate risk to undergo surgery due to his cormorbidities and overall poor functional capacity however no absolute contraindications. T9 and T10 endplate fracture status post mechanical fall with plans for T8-T11 stabilization for T9/T10 endplate fractures with Dr. Hicks PVD status post stent of right common iliac vein Hypertension: Lisinopril 2.5 mg PO QD. Hyperlipidemia: Lipitor 20 mg PO QHS. BPH: Flomax 0.4 mg PO QHS. Patient will need guardianship prior to surgery. Case management on board. CODE STATUS: FULL CODE. DVT Prophylaxis: SCDs. GI Prophylaxis: Designated medical POA if patient is not able to make medical decisions for themselves: I have reviewed the following search consultant notes: Ortho, Neurology, Urology note. I have reviewed the results of the following tests: I have ordered the following tests: I have discussed the care of this patient with the following independent historian: RN, Case management. I have independently interpreted the following test below: I have discussed the management of this patient with the following physician: Objective - Vital Signs Vital signs: Vital Signs Temp 97.7 F 07/12/24 01:59 Pulse 79 07/12/24 01:59 Resp 16 07/11/24 12:39 BP 124/71 07/12/24 01:59 Pulse Ox 98 07/12/24 01:59 FiO2 Intake & Output 07/11/24 07/12/24 07/12/24 18:59 06:59 18:59 Output Total 450 Balance -450 Output: Urine 450 Other: Voiding Method Indwelling Catheter - Labs CBC & Chem 7: 07/11/24 07:53 07/11/24 07:53 Labs: Abnormal Lab Results - Last 24 Hours (Table) 07/11/24 07/11/24 07/12/24 Range/Units 11:39 16:59 06:02 POC Glucose (mg/dL) 116 H 132 H 116 H (70-110) mg/dL
[2024-07-12 11:48] LABS: Glucose,Whole Blood 124 mg/dL (70-110)
--- NOTE | 2024-07-12 14:17 | P.PN ---
Progress Note - Text Progress Note Date: 07/12/24 Chief complaint: T9-10 AO B2 EXTENSION TYPE FRACTURE THROUGH ANKYLOSED SPINE, altered mental status Patient was evaluated today at bedside, he is resting comfortably in his hospital bed. Patient's mental state seems to be improving, seems better than when I evaluated him yesterday. I did discuss with case management the power of claim attorney discussion, they states that this could take up to a week. Discussed with nursing today at bedside, his mentation seems to be improving every day. Patient does have an unstable fracture that does require surgery, will discuss with my attending, anesthesia and possibly HOME HEALTH PHYSICAL THERAPIST regarding timeframe of surgery. We will continue to follow patient
[2024-07-12 16:42] LABS: Glucose,Whole Blood 109 mg/dL (70-110)
[2024-07-12 20:45] LABS: Glucose,Whole Blood 135 mg/dL (70-110)
[2024-07-13 04:51] LABS: Glucose,Whole Blood 113 mg/dL (70-110)
--- NOTE | 2024-07-13 11:03 | P.PN ---
Subjective Progress Note Date: 07/13/24 84-year-old male with PMH of PVD status post stent of the right common iliac vein, HTN, HLD presented to our facility as a transfer from [facility] for back and right sided hip pain. Patient reported he was walking in the parking lot and stepped up onto the curb with his left leg which is his bad leg and his leg gave out resulting in him falling backwards onto his bottom. Patient underwent evaluation at their facility. CTA chest/abdomen/pelvis was obtained showing acute T9-T10 inferior endplate AP directed extension type fracture with minimal widening at the anterior aspect to to 0.5 cm. Troponin was negative at less than 0.012. Alcohol was less than 10. CBC showed MCV of 98.9. BMP showed Cl of 109, glu 114, BUN 34.4, Cr 1.48, and GFR 48.01. Liver profile unremarkable. Coagulation profile normal findings. Magnesium 1.8. Patient was transferred to [facility] for evaluation by orthospine surgeon. Patient admitted under orthospine surgery team and we were consulted for medical management. 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 Cardiology consulted, patient is above average risk for surgical intervention, however there are no absolute contraindications for him to undergo emergent surgery at this time. Plans for T8-T11 stabilization for T9/T10 endplate fractures with Dr. Hicks on 07/08/2024. Surgery was cancelled due to his confusion and inability to obtain consent. Ammonia is < 9, B12 539, Folate 22.8, TSH 0.739, EEG showed moderate encephalopathy. Psychiatry reported that the patient does not have decision making capacity. Started on Seroquel 12.5 mg PO QHS. Case management on board for guardianship. Patient seen this morning. He is AO x 3. Patient was able to tell me why he is in the hospital. He is able to tell me that he has back pain. He also told me that his surgery keeps on getting delayed because something more important keeps on happening. Patient was also answering questions appropriately. Physical exam General examination - Alert and Oriented 3 in NAD, appears chronically debilitated Heart - + S1S2 no murmurs Lungs - Clear to auscultation Abdomen soft NT ND +ve BS Extremities - No edema ALIGNING CHECKER - Moving all 4 extremities spontaneously Psych - Calm and cooperative Assessment and plan Delirium Resolved Resume Seroquel 12.5 mg p.o. nightly Urinary retention Status post Ko catheter Urology on board Thoracic fracture Reviewed note from orthopedic surgery who plans on doing surgery Pain control with [place] 02/12/2025 every 4 hours as needed IV Dilaudid 0.5 mg every 3 hours as needed Hypertension Continue with lisinopril 2.5 mg p.o. daily Hyperlipidemia Continue Lipitor 20 mg at bedtime BPH Continue Flomax 0.4 mg p.o. at bedtime DVT prophylaxis: Will defer to primary team Objective - Vital Signs Vital signs: Vital Signs Temp 97.6 F 07/13/24 08:00 Pulse 74 07/13/24 08:00 Resp 16 07/13/24 08:00 BP 119/69 07/13/24 08:00 Pulse Ox 96 07/13/24 08:00 FiO2 Intake & Output 07/12/24 07/13/24 07/13/24 18:59 06:59 18:59 Output Total 800 Balance -800 Output: Urine 800 Other: Voiding Method Indwelling Catheter Indwelling Catheter Indwelling Catheter - Labs CBC & Chem 7: 07/11/24 07:53 07/11/24 07:53 Labs: Abnormal Lab Results - Last 24 Hours (Table) 07/12/24 07/12/24 07/13/24 Range/Units 11:47 20:43 04:50 POC Glucose (mg/dL) 124 H 135 H 113 H (70-110) mg/dL
[2024-07-13 11:10] LABS: Glucose,Whole Blood 156 mg/dL (70-110)
[2024-07-13 16:10] LABS: Glucose,Whole Blood 139 mg/dL (70-110)
[2024-07-13 21:04] LABS: Glucose,Whole Blood 124 mg/dL (70-110)
[2024-07-14 06:30] LABS: Glucose,Whole Blood 95 mg/dL (70-110)
[2024-07-14 07:35] LABS: Basophils % (A) 0 %; Eosinophils # (A) 0.2 k/uL (0-0.7); Eosinophils % (A) 2 %; HCT 41.2 % (39.0-53.0); HGB 13.5 gm/dL (13.0-17.5); Hypochromasia Slight; Lymphocytes # (A) 1.5 k/uL (1.0-4.8); Lymphocytes % (A) 19 %; MCH 31.9 pg (25.0-35.0); MCHC 32.7 g/dL (31.0-37.0); MCV 97.7 fL (80.0-100.0); Mean Platelet Volume 6.6; Monocytes # (A) 0.4 k/uL (0-1.0); Monocytes % (A) 5 %; Neutrophils # (A) 5.8 k/uL (1.3-7.7); Neutrophils % (A) 73 %; Platelet Count 251 k/uL (150-450); RBC 4.21 m/uL (4.30-5.90); RDW 15.4 % (11.5-15.5); WBC 7.9 k/uL (3.8-10.6)
[2024-07-14 07:54] LABS: ALT 17 U/L (4-49); AST 28 U/L (17-59); African American GFR (CKD) 82 (>60 ml/min/1.73 sqM); Albumin/Globulin Ratio 1.2; Alkaline Phosphatase 63 U/L (38-126); Anion Gap 10 mmol/L; Blood Urea Nitrogen 25 mg/dL (9-20); Calcium 9.4 mg/dL (8.4-10.2); Carbon Dioxide 29 mmol/L (22-30); Chloride 102 mmol/L (98-107); Globulin 3.4 g/dL; Glucose 112 mg/dL (74-99); Non-African American GFR(CKD) 71 (>60 ml/min/1.73 sqM); Potassium 3.8 mmol/L (3.5-5.1); Sodium 141 mmol/L (137-145); Total Bilirubin 1.2 mg/dL (0.2-1.3); Total Protein 7.4 g/dL (6.3-8.2)
--- NOTE | 2024-07-14 09:18 | P.PN ---
Subjective Progress Note Date: 07/14/24 Principal diagnosis: T9-10 AO B2 Extension type fracture through ankylosed spine, altered mental status. Patient seen and examined this morning. He is alert to self and situation. Patient is having flight of random conversations throughout exam. Sitter is present at bedside to maintain patient safety. Patient is to remain bedrest at this time due to unstable fracture. Our services will be signing off until guardian is obtained. Please feel free to reach out when this is obtain or with any questions or concerns. Dr. Hicks will be unavaialble 07/16/24 through 07/20/24. Objective - Vital Signs Vital signs: Vital Signs Temp 97.8 F 07/14/24 07:47 Pulse 75 07/14/24 07:47 Resp 16 07/14/24 07:47 BP 126/68 07/14/24 07:47 Pulse Ox 97 07/14/24 07:47 FiO2 Intake & Output 07/13/24 07/14/24 07/14/24 18:59 06:59 18:59 Output Total 1200 400 Balance -1200 -400 Output: Urine 1200 400 Other: Voiding Method Indwelling Catheter Indwelling Catheter # Bowel Movements 1 - Exam Inspection: Negative for any open fractures, ecchymosis, significant erythema/ulcers. Sensation: Sensation is equal, symmetric, bilaterally intact throughout the upper and lower extremities Palpation: Tender to palpation over the thoracic spine. Range of motion: Patient does have full range of motion bilateral upper and low er extremities on exam Motor: 5/5 in all major motor groups in the bilateral upper and 4-/5 lower e xtremities Special tests: Negative Homans bilaterally. Negative Marcy bilaterally. Negative clonus bilaterally. Neurovascular: Radial pulse intact, 2+ bilaterally. Cap refill under 3 seconds in digits upper extremities. - Labs CBC & Chem 7: 07/14/24 07:20 07/14/24 07:20 Labs: Abnormal Lab Results - Last 24 Hours (Table) 07/13/24 07/13/24 07/13/24 Range/Units 11:09 16:08 21:00 RBC (4.30-5.90) m/uL BUN (9-20) mg/dL Glucose (74-99) mg/dL POC Glucose (mg/dL) 156 H 139 H 124 H (70-110) mg/dL 07/14/24 07/14/24 Range/Units 07:20 07:20 RBC 4.21 L (4.30-5.90) m/uL BUN 25 H (9-20) mg/dL Glucose 112 H (74-99) mg/dL POC Glucose (mg/dL) (70-110) mg/dL Assessment and Plan Assessment: T9-10 AO B2 Extension type fracture through ankylosed spine Altered mental status. Plan: Orthopedics is signing off at this time until Guardian is obtained to authorize surgical procedure. Please do not hesitate to contact us for any further questions. Dr. Hicks will not be available 07/16/24 through 07/20/24. 2. Appreciate medical management 3. Pain management - 4. GI prophylaxis - 5. DVT prophylaxis - 6. PT/OT - weightbearing as tolerated with a walker as needed. 7. Appreciate consult
[2024-07-14 09:20] VITALS: BMI 33.3
--- NOTE | 2024-07-14 10:07 | P.PN ---
Subjective Progress Note Date: 07/13/[address] Patient initially seen by Dr. Lawrence Carbajal. Please refer to his notes for details. Patient is a 84-year-old male admitted with confusion. He has compression fracture of thoracic spine. Patient has delirium. EEG was negative for seizure. Patient was seen for a follow-up. Discussed with patient's nurse. She mentioned that earlier this morning he was alert and orient x 3. However in the evening he is probably having sundowners. [facility] He believes people are in the room, needed to get downstairs to get the dinner. He says that he has left something in the fireplace. When I saw the patient, patient is talking to himself. He is having full conversation with himself. Patient denies any headache or dizziness. Patient has not received Dilaudid or Lincoln since 07/08/2024. He is only on Tylenol and Flexeril for pain. Some of the workup during this hospital visit consisted of: Hemoglobin A1c is 6.3. Vitamin B12: 539 Folate: 22.8 TSH: 0.739 CT head is reported as no acute intracranial process. Severe nonspecific white matter changes redemonstrated. Likely secondary due to chronic small vessel ischemic disease. Possible acute on chronic right sphenoid sinusitis. Routine EEG: Is abnormal. The background slowing is suggestive of moderate encephalopathy. There is no focal slowing, epileptiform discharge or seizure on the EEG. Objective - Vital Signs Vital signs: Vital Signs Temp 97.5 F L 07/13/24 13:40 Pulse 82 07/13/24 13:40 Resp 16 07/13/24 13:40 BP 162/75 07/13/24 13:40 Pulse Ox 98 07/13/24 13:40 FiO2 Intake & Output 07/13/24 07/13/24 07/14/24 06:59 18:59 06:59 Output Total 1200 Balance -1200 Output: Urine 1200 Other: Voiding Method Indwelling Catheter Indwelling Catheter # Bowel Movements 1 - Exam On examination patient was noticed to be converse sitting by himself alone in the room. He keeps his eyes closed, but is talking, having conversation. Speech is clear, with no aphasia. On alerting, patient states the month is Friday, but then said was June and then said August. He states the year is 1923. Then said was 2023. On cranial examination pupils are equal, round and reacting, visual kim are full, extraocular muscles are intact. Face is symmetric. On muscle strength testing there is no pronator drift. His brick picker is normal, biceps normal. Ankle dorsiflexion normal. Detailed testing deferred because of back issues. - Labs CBC & Chem 7: 07/14/24 07:20 07/14/24 07:20 Labs: Abnormal Lab Results - Last 24 Hours (Table) 07/12/24 07/13/24 07/13/24 Range/Units 20:43 04:50 11:09 POC Glucose (mg/dL) 135 H 113 H 156 H (70-110) mg/dL 07/13/24 Range/Units 16:08 POC Glucose (mg/dL) 139 H (70-110) mg/dL Assessment and Plan Assessment: This is an 84-year-old gentleman who was transferred from outside hospital on 07/06/2024 for a fall in which his foot got stuck in a curb that resulted in a fall and he had imaging at the outpatient facility and it showed T9-T10 acute fracture. During this hospital visit patient is having fluctuation in mentation Delirium likely hospital induced and his medication. CT of the head is unremarkable for any acute or subacute process. EEG is moderate encephalopathy but no discharges or seizure Acute T9-T10 fracture. History of peripheral vascular disease status post stenting Hypertension Hyperlipidemia Plan: Patient's mentation is fluctuating, likely due to acute delirium. May have underlying cognitive impairment. Psychiatry has seen the patient, diagnosed with neurocognitive deficit, secondary to systemic causesresolving. Patient is not able to make reasonable medical decision currently. He is on Seroquel 12.5mg qhs by primary team and that can be increased to 25mg qhs and if needed 50mg qhs. Patient on Paxil 40 mg daily. He is also on Haldol 0.5mg IM PRN. If possible try to limit opiates/sedatives. Patient has not received Dilaudid or Lincoln since 07/08/2024. Patient does not have capacity at this time because of his confusion to give consent from neurological perspective. If surgery is emergent and the benefit outweigh the risk then can proceed with surgery if no family members can provide. Will defer the rest of the medical management to primary and other specialist
[2024-07-14 11:22] LABS: Glucose,Whole Blood 125 mg/dL (70-110)
--- NOTE | 2024-07-14 13:15 | P.PN ---
Subjective Progress Note Date: 07/14/24 84-year-old male with PMH of PVD status post stent of the right common iliac vein, HTN, HLD presented to our facility as a transfer from [facility] for back and right sided hip pain. Patient reported he was walking in the parking lot and stepped up onto the curb with his left leg which is his bad leg and his leg gave out resulting in him falling backwards onto his bottom. Patient underwent evaluation at their facility. CTA chest/abdomen/pelvis was obtained showing acute T9-T10 inferior endplate AP directed extension type fracture with minimal widening at the anterior aspect to to 0.5 cm. Troponin was negative at less than 0.012. Alcohol was less than 10. CBC showed MCV of 98.9. BMP showed Cl of 109, glu 114, BUN 34.4, Cr 1.48, and GFR 48.01. Liver profile unremarkable. Coagulation profile normal findings. Magnesium 1.8. Patient was transferred to [facility] for evaluation by orthospine surgeon. Patient admitted under orthospine surgery team and we were consulted for medical management. 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 Cardiology consulted, patient is above average risk for surgical intervention, however there are no absolute contraindications for him to undergo emergent surgery at this time. Plans for T8-T11 stabilization for T9/T10 endplate fractures with Dr. Hicks on 07/08/2024. Surgery was cancelled due to his confusion and inability to obtain consent. Ammonia is < 9, B12 539, Folate 22.8, TSH 0.739, EEG showed moderate encephalopathy. Psychiatry reported that the patient does not have decision making capacity. Started on Seroquel 12.5 mg PO QHS. Case management on board for guardianship. I saw the patient this morning he was AO x 3 and answering questions appropriately. Apparently I was told later in the day patient was delirious and confused Physical exam General examination - Alert and Oriented 3 in NAD, appears chronically debilitated Heart - + S1S2 no murmurs Lungs - Clear to auscultation Abdomen soft NT ND +ve BS Extremities - No edema CONCRETE ROD BUSTER - Moving all 4 extremities spontaneously Psych - Calm and cooperative Assessment and plan Delirium Resolved Resume Seroquel 12.5 mg p.o. nightly I will stop the Flexeril and the IV Dilaudid Patient continues to have episodes of delirium delicatessen department manager will work on guardianship Urinary retention Status post Ko catheter Urology on board Thoracic fracture Pain control with [place] 02/12/2025 every 4 hours as needed IV Dilaudid 0.5 mg every 3 hours as needed Per orthopedic surgery will do surgery once guardianship is established Hypertension Continue with lisinopril 2.5 mg p.o. daily Hyperlipidemia Continue Lipitor 20 mg at bedtime BPH Continue Flomax 0.4 mg p.o. at bedtime DVT prophylaxis: Will defer to primary team Objective - Vital Signs Vital signs: Vital Signs Temp 97.8 F 07/14/24 07:47 Pulse 75 07/14/24 08:57 Resp 16 07/14/24 08:57 BP 126/68 07/14/24 07:47 Pulse Ox 97 07/14/24 07:47 FiO2 Intake & Output 07/13/24 07/14/24 07/14/24 18:59 06:59 18:59 Output Total 1200 400 Balance -1200 -400 Weight 105.233 kg Output: Urine 1200 400 Other: Voiding Method Indwelling Catheter Indwelling Catheter Indwelling Catheter # Bowel Movements 1 - Labs CBC & Chem 7: 07/14/24 07:20 07/14/24 07:20 Labs: Abnormal Lab Results - Last 24 Hours (Table) 07/13/24 07/13/24 07/14/24 Range/Units 16:08 21:00 07:20 RBC 4.21 L (4.30-5.90) m/uL BUN (9-20) mg/dL Glucose (74-99) mg/dL POC Glucose (mg/dL) 139 H 124 H (70-110) mg/dL 07/14/24 07/14/24 Range/Units 07:20 11:21 RBC (4.30-5.90) m/uL BUN 25 H (9-20) mg/dL Glucose 112 H (74-99) mg/dL POC Glucose (mg/dL) 125 H (70-110) mg/dL
[2024-07-14 16:40] LABS: Glucose,Whole Blood 117 mg/dL (70-110)
[2024-07-14 22:02] LABS: Glucose,Whole Blood 144 mg/dL (70-110)
[2024-07-15 06:22] LABS: Glucose,Whole Blood 118 mg/dL (70-110)
[2024-07-15 11:46] LABS: Glucose,Whole Blood 133 mg/dL (70-110)
--- NOTE | 2024-07-15 13:13 | P.PN ---
Subjective Progress Note Date: 07/15/24 84-year-old male with PMH of PVD status post stent of the right common iliac vein, HTN, HLD presented to our facility as a transfer from [facility] for back and right sided hip pain. Patient reported he was walking in the parking lot and stepped up onto the curb with his left leg which is his bad leg and his leg gave out resulting in him falling backwards onto his bottom. Patient underwent evaluation at their facility. CTA chest/abdomen/pelvis was obtained showing acute T9-T10 inferior endplate AP directed extension type fracture with minimal widening at the anterior aspect to to 0.5 cm. Troponin was negative at less than 0.012. Alcohol was less than 10. CBC showed MCV of 98.9. BMP showed Cl of 109, glu 114, BUN 34.4, Cr 1.48, and GFR 48.01. Liver profile unremarkable. Coagulation profile normal findings. Magnesium 1.8. Patient was transferred to [facility] for evaluation by orthospine surgeon. Patient admitted under orthospine surgery team and we were consulted for medical management. 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 Cardiology consulted, patient is above average risk for surgical intervention, however there are no absolute contraindications for him to undergo emergent surgery at this time. Plans for T8-T11 stabilization for T9/T10 endplate fractures with Dr. Hicks on 07/08/2024. Surgery was cancelled due to his confusion and inability to obtain consent. Ammonia is < 9, B12 539, Folate 22.8, TSH 0.739, EEG showed moderate encephalopathy. Psychiatry reported that the patient does not have decision making capacity. Started on Seroquel 12.5 mg PO QHS. Case management on board for guardianship. Patient's court date is scheduled for 07/19/2024. Orthopedic surgery has signed off until patient gets guardianship. Dr. Kaur sent will be out of town until 07/20/2024 Patient seen this morning. He was somnolent and mildly confused. However he did not appear agitated. One-to-one sitter was at bedside who reported that patient has been calm all morning and got signout that patient was also calm last night. Patient continues to complain of back pain. Physical exam General examination - Alert and Oriented 3 in NAD, appears chronically debilitated Heart - + S1S2 no murmurs Lungs - Clear to auscultation Abdomen soft NT ND +ve BS Extremities - No edema CORPORATE AFFAIRS MANAGER - Moving all 4 extremities spontaneously Psych -mildly confused Assessment and plan Delirium Resolved Resume Seroquel 12.5 mg p.o. nightly I will stop the patient's [place] I discussed with renal case manager who said court date is scheduled for 07/19/2024 Urinary retention Status post Ko catheter Urology on board Thoracic fracture IV Toradol 15 mg every 6 hours as needed for pain and Tylenol 650 mg p.o. every 6 hours for pain Per orthopedic surgery will do surgery once guardianship is established. Orthopedic surgery has signed off. Dr. Kaur's and will return on 07/20/2024 Hypertension Continue with lisinopril 2.5 mg p.o. daily Hyperlipidemia Continue Lipitor 20 mg at bedtime BPH Continue Flomax 0.4 mg p.o. at bedtime DVT prophylaxis: Will defer to primary team Objective - Vital Signs Vital signs: Vital Signs Temp 98.0 F 07/15/24 06:54 Pulse 77 07/15/24 06:54 Resp 16 07/15/24 11:42 BP 128/69 07/15/24 06:54 Pulse Ox 94 L 07/15/24 06:54 FiO2 Intake & Output 07/14/24 07/15/24 07/15/24 18:59 06:59 18:59 Output Total 650 500 Balance -650 -500 Weight 105.233 kg Output: Urine 650 500 Other: Voiding Method Indwelling Catheter Indwelling Catheter Indwelling Catheter - Labs CBC & Chem 7: 07/14/24 07:20 07/14/24 07:20 Labs: Abnormal Lab Results - Last 24 Hours (Table) 07/14/24 07/14/24 07/15/24 Range/Units 16:38 22:00 06:20 POC Glucose (mg/dL) 117 H 144 H 118 H (70-110) mg/dL 07/15/24 Range/Units 11:45 POC Glucose (mg/dL) 133 H (70-110) mg/dL
[2024-07-15 17:00] LABS: Glucose,Whole Blood 126 mg/dL (70-110)
[2024-07-15 20:10] LABS: Glucose,Whole Blood 134 mg/dL (70-110)
[2024-07-16] MEDS: KETOROLAC 15 MG/ML 1 ML VIAL IVP PRN (05:23)
[2024-07-16] MEDS ORDERED: ZINC OXIDE PASTE (Z-GUARD) 1 APPLIC TOPICAL PRN (05:35)
[2024-07-16 05:51] LABS: Glucose,Whole Blood 99 mg/dL (70-110)
[2024-07-16 11:22] LABS: Glucose,Whole Blood 122 mg/dL (70-110)
--- NOTE | 2024-07-16 15:19 | P.PN ---
Subjective Progress Note Date: 07/16/24 84-year-old male with PMH of PVD status post stent of the right common iliac vein, HTN, HLD presented to our facility as a transfer from [facility] for back and right sided hip pain. Patient reported he was walking in the parking lot and stepped up onto the curb with his left leg which is his bad leg and his leg gave out resulting in him falling backwards onto his bottom. Patient underwent evaluation at their facility. CTA chest/abdomen/pelvis was obtained showing acute T9-T10 inferior endplate AP directed extension type fracture with minimal widening at the anterior aspect to to 0.5 cm. Troponin was negative at less than 0.012. Alcohol was less than 10. CBC showed MCV of 98.9. BMP showed Cl of 109, glu 114, BUN 34.4, Cr 1.48, and GFR 48.01. Liver profile unremarkable. Coagulation profile normal findings. Magnesium 1.8. Patient was transferred to [facility] for evaluation by orthospine surgeon. Patient admitted under orthospine surgery team and we were consulted for medical management. 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 Cardiology consulted, patient is above average risk for surgical intervention, however there are no absolute contraindications for him to undergo emergent surgery at this time. Plans for T8-T11 stabilization for T9/T10 endplate fractures with Dr. Hicks on 07/08/2024. Surgery was cancelled due to his confusion and inability to obtain consent. Ammonia is < 9, B12 539, Folate 22.8, TSH 0.739, EEG showed moderate encephalopathy. Psychiatry reported that the patient does not have decision making capacity. Started on Seroquel 12.5 mg PO QHS. Case management on board for guardianship. Patient's court date is scheduled for 07/19/2024. Orthopedic surgery has signed off until patient gets guardianship. Dr. Kaur sent will be out of town until 07/20/2024 Patient seen this morning. Patient denying any acute complaints. He was AOx3. I spoke to the nurse who said that patient sometimes is still confused. Physical exam General examination - Alert and Oriented 3 in NAD, appears chronically debilitated Heart - + S1S2 no murmurs Lungs - Clear to auscultation Abdomen soft NT ND +ve BS Extremities - No edema JIG BORER - Moving all 4 extremities spontaneously Psych -mildly confused Assessment and plan Delirium Patient still having some episodes of delirium Resume Seroquel 12.5 mg p.o. nightly I will stop the patient's [place] I discussed with case finishing machine adjuster who said court date is scheduled for 07/19/2024 Urinary retention Status post Ko catheter Urology on board Thoracic fracture IV Toradol 15 mg every 6 hours as needed for pain and Tylenol 650 mg p.o. every 6 hours for pain Per orthopedic surgery will do surgery once guardianship is established. Orthopedic surgery has signed off. Dr. Kaur's and will return on 07/20/2024. Will need to reconsult after the court hearing Hypertension Continue with lisinopril 2.5 mg p.o. daily Hyperlipidemia Continue Lipitor 20 mg at bedtime BPH Continue Flomax 0.4 mg p.o. at bedtime DVT prophylaxis: Will defer to primary team Objective - Vital Signs Vital signs: Vital Signs Temp 98.1 F 07/16/24 13:49 Pulse 74 07/16/24 13:49 Resp 16 07/16/24 13:49 BP 108/76 07/16/24 13:49 Pulse Ox 96 07/16/24 13:49 FiO2 Intake & Output 07/15/24 07/16/24 07/16/24 18:59 06:59 18:59 Intake Total 0 1080 Output Total 650 525 Balance -650 555 Intake: Oral 0 1080 Output: Urine 650 525 Other: Voiding Method Indwelling Catheter Indwelling Catheter Indwelling Catheter # Bowel Movements 1 - Labs CBC & Chem 7: 07/14/24 07:20 07/14/24 07:20 Labs: Abnormal Lab Results - Last 24 Hours (Table) 07/15/24 07/15/24 07/16/24 Range/Units 16:58 20:08 11:20 POC Glucose (mg/dL) 126 H 134 H 122 H (70-110) mg/dL
[2024-07-16 16:32] LABS: Glucose,Whole Blood 151 mg/dL (70-110)
[2024-07-16] MEDS ORDERED: HYDROmorphone 0.5 MG/0.5 ML SYRINGE IVP PRN (17:25)
[2024-07-16] MEDS: DEXAMETHASONE SOD PHOSPHATE 4 MG/ML 1 ML VIAL IV ONE (17:34)
[2024-07-16] MEDS: LACTATED RINGERS 1,000 ML IV SCH (17:35)
[2024-07-16] MEDS: ONDANSETRON 4 MG/2 ML VIAL IVP ONE (17:35)
[2024-07-16 20:20] LABS: Glucose,Whole Blood 118 mg/dL (70-110)
[2024-07-17 05:51] LABS: Glucose,Whole Blood 117 mg/dL (70-110)
[2024-07-17 11:27] LABS: Glucose,Whole Blood 172 mg/dL (70-110)
[2024-07-17 16:15] LABS: Glucose,Whole Blood 186 mg/dL (70-110)
--- NOTE | 2024-07-17 17:06 | P.PN ---
Subjective Progress Note Date: 07/17/24 Objective - Vital Signs Vital signs: Vital Signs Temp 98.1 F 07/17/24 13:20 Pulse 70 07/17/24 13:20 Resp 16 07/17/24 13:20 BP 103/67 07/17/24 13:20 Pulse Ox 93 L 07/17/24 13:20 FiO2 Intake & Output 07/16/24 07/17/24 07/17/24 18:59 06:59 18:59 Output Total 600 550 Balance -600 -550 Output: Urine 600 550 Other: Voiding Method Indwelling Catheter Indwelling Catheter # Bowel Movements 4 1 - Constitutional General appearance: Present: no acute distress - Respiratory Respiratory: bilateral: CTA - Cardiovascular Rhythm: regular - Gastrointestinal General gastrointestinal: Present: normal bowel sounds - Additional findings Additional findings: Limited insight - Labs CBC & Chem 7: 07/14/24 07:20 07/14/24 07:20 Labs: Abnormal Lab Results - Last 24 Hours (Table) 07/16/24 07/17/24 07/17/24 Range/Units 20:18 05:49 11:25 POC Glucose (mg/dL) 118 H 117 H 172 H (70-110) mg/dL 07/17/24 Range/Units 16:14 POC Glucose (mg/dL) 186 H (70-110) mg/dL Assessment and Plan (1) Thoracic spine fracture Narrative/Plan: The patient is receiving IV Toradol for pain control. Orthopedic surgery is planning surgery once guardianship is established. Dr. Kaur will return on 07/20. Orthopedic surgery has signed off pending guardianship. Current Visit: Yes Status: Acute Code(s): S22.009A - UNSP FRACTURE OF UNSP THORACIC VERTEBRA, INIT FOR CLOS FX SNOMED Code(s): 345744973 (2) HARSHAD (acute kidney injury) Narrative/Plan: Resolved has urinary retention Ko catheter in place Current Visit: No Status: Acute Code(s): N17.9 - ACUTE KIDNEY FAILURE, UNSPECIFIED SNOMED Code(s): 50929006 (3) Encephalopathy Narrative/Plan: With delirium. The patient Seroquel was resumed. His [place] was discontinued we will continue to monitor. Current Visit: Yes Status: Acute Code(s): G93.40 - ENCEPHALOPATHY, UNSPECIFIED SNOMED Code(s): 96532039
[2024-07-17 21:03] LABS: Glucose,Whole Blood 117 mg/dL (70-110)
[2024-07-18 06:35] LABS: Glucose,Whole Blood 96 mg/dL (70-110)
[2024-07-18] MEDS: ACETAMINOPHEN TAB 325 MG TAB PO PRN (10:45)
[2024-07-18 11:01] LABS: Glucose,Whole Blood 129 mg/dL (70-110)
[2024-07-18] MEDS: HALOPERIDOL LACTATE 5 MG/ML 1 ML VIAL IM PRN (14:30)
[2024-07-18] MEDS: ACETAMINOPHEN IV (For NPO) 1,000 MG in EMPTY BAG 1 BAG IVPB SCH (14:50)
[2024-07-18 16:25] LABS: Glucose,Whole Blood 175 mg/dL (70-110)
--- NOTE | 2024-07-18 17:32 | P.PN ---
Subjective Progress Note Date: 07/18/24 (delayed charting seen at 1030) Patient seen and examined at bedside. He is upset. Yelling. Does not know why he is been here 3 weeks without surgery happening. Currently awaiting court appointed guardian. Vital signs reviewed Would not allow me to examine him General: Nontoxic, no distress, appears at stated age Psych: Alert, angry, tangential thought process Assessment/Plan: T9-10 AO B2 extension fracture through ankylosed spine Neurocognitive disorder with delirium -Awaiting guardianship before can proceed with surgical fixation. Per orthospine notes fracture is currently unstable -Start acetaminophen IV 1000 mg every 6 hours scheduled to see if controlling pain will help with delirium -Haldol 2 mg IM every 6 hours as needed for agitation, Seroquel 12.5 mg nightly Urinary retention BPH -Flomax 0.4 mg -Urologist consulted for placement of Ko catheter due to phimosis. Hypertension -Lisinopril 2.5 mg daily Dyslipidemia -Lipitor 20 mg at night PreDM -A1C 6.3 -Stop SSI given agitation with no BS >180 - follow BS in AM - Tradjenta 5 mg daily. Imaging: None new Data Review: BS 175 DVT prophylaxis: Start Lovenox Anticipated discharge date: Awating court appointed guardian and then will need surgery. This dictation was prepared using M[employer] voice recognition software. Though every attempt is made to correct errors during dictation some may still exist. Objective - Vital Signs Vital signs: Vital Signs Temp 97.7 F 07/18/24 14:00 Pulse 88 07/18/24 14:00 Resp 16 07/18/24 14:00 BP 107/67 07/18/24 14:00 Pulse Ox 94 L 07/18/24 14:00 FiO2 Intake & Output 07/17/24 07/18/24 07/18/24 18:59 06:59 18:59 Output Total 500 600 Balance -500 -600 Output: Urine 500 600 Other: Voiding Method Indwelling Catheter Indwelling Catheter # Bowel Movements 2 - Labs CBC & Chem 7: 07/14/24 07:20 07/14/24 07:20 Labs: Abnormal Lab Results - Last 24 Hours (Table) 07/17/24 07/18/24 07/18/24 Range/Units 21:01 11:00 16:24 POC Glucose (mg/dL) 117 H 129 H 175 H (70-110) mg/dL
[2024-07-18] MEDS: ENOXAPARIN 40 MG/0.4 ML SYRINGE SQ SCH (18:15)
[2024-07-19 06:29] LABS: Glucose,Whole Blood 96 mg/dL (70-110)
[2024-07-19] MEDS: LINAGLIPTIN 5 MG TABLET PO SCH (07:49)
[2024-07-19 08:55] LABS: BUN/Creat Ratio 18.64 Ratio (12.00-20.00); Blood Urea Nitrogen 20.5 mg/dL (9.0-27.0); Chloride 108 mmol/L (96-109); Glucose 95 mg/dL (70-110); Potassium 3.9 mmol/L (3.5-5.5); Sodium 144 mmol/L (135-145)
[2024-07-19 08:56] LABS: ALT 13 U/L (10-49); AST 20 U/L (14-35); Albumin 3.3 g/dL (3.8-4.9); Albumin/Globulin Ratio 1.14 Ratio (1.60-3.17); Alkaline Phosphatase 77 U/L (41-126); Calcium 8.3 mg/dL (8.7-10.3); Carbon Dioxide 27.4 mmol/L (21.6-31.8); Globulin 2.9 g/dL (1.6-3.3); Total Bilirubin 0.5 mg/dL (0.3-1.2); Total Protein 6.2 g/dL (6.2-8.2)
[2024-07-19 10:13] LABS: HCT 39.8 % (39.6-50.0); HGB 12.6 g/dL (13.0-17.0); MCH 30.2 pg (27.0-32.0); MCHC 31.7 g/dL (32.0-37.0); MCV 95.4 FL (80.0-97.0); Mean Platelet Volume 9.9 FL (9.5-12.2); NRBC Per 100 WBC 0 X 10*3/uL (0.00-0.01); Platelet Count 200 X 10*3/uL (140-440); RBC 4.17 X 10*6/uL (4.40-5.60); RDW 12.3 % (11.5-14.5); WBC 6.99 X 10*3/uL (4.50-10.00)
--- NOTE | 2024-07-19 14:28 | P.PN ---
Subjective Progress Note Date: 07/19/24 84-year-old male with PMH of PVD status post stent of the right common iliac vein, HTN, HLD presented to our facility as a transfer from [facility] for back and right sided hip pain. Patient reported he was walking in the parking lot and stepped up onto the curb with his left leg which is his bad leg and his leg gave out resulting in him falling backwards onto his bottom. Patient underwent evaluation at their facility. CTA chest/abdomen/pelvis was obtained showing acute T9-T10 inferior endplate AP directed extension type fracture with minimal widening at the anterior aspect to to 0.5 cm. Troponin was negative at less than 0.012. Alcohol was less than 10. CBC showed MCV of 98.9. BMP showed Cl of 109, glu 114, BUN 34.4, Cr 1.48, and GFR 48.01. Liver profile unremarkable. Coagulation profile normal findings. Magnesium 1.8. Patient was transferred to [facility] for evaluation by orthospine surgeon. Patient admitted under orthospine surgery team and we were consulted for medical management. 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 Cardiology consulted, patient is above average risk for surgical intervention, however there are no absolute contraindications for him to undergo emergent surgery at this time. Plans for T8-T11 stabilization for T9/T10 endplate fractures with Dr. Hicks on 07/08/2024. Surgery was cancelled due to his confusion and inability to obtain consent. Ammonia is < 9, B12 539, Folate 22.8, TSH 0.739, EEG showed moderate encephalopathy. Psychiatry reported that the patient does not have decision making capacity. Started on Seroquel 12.5 mg PO QHS. Case management on board for guardianship. 07/19 Patient was seen and examined. No events overnight. Required Haldol last night. CBC and CMP RBC 4.17, Hg 12.6, Ca 8.3, alb 3.3. General: non toxic, no distress, appears at stated age Derm: warm, dry, venous stasis changes lower extremities Head: atraumatic, normocephalic, symmetric Eyes: EOMI, no lid lag, anicteric sclera Mouth: no lip lesion, mucus membranes moist Cardiovascular: S1S2 reg, no murmur Lungs: Clear to auscultation bilaterally, no rhonchi, no rales , no accessory muscle use Abd: Non distended. Non tender to palpation, + Ko Ext: no gross muscle atrophy, no edema, no contractures Neuro: no focal neuro deficits Psych: Alert, oriented x 1-2 Based on my assessment of this patient, this patient meets a high complexity level of care. Delirium: Psychiatry consulted patient does not have decision making capacity. Window side bed. Avoid sedative medications. Frequent re-direction if needed. B12, TSH, Folate, Ammonia, EEG wnl. Seroquel 12.5 mg PO QHS. Haldol IM PRN for agitation. Neurology and Psychiatry on board. Urinary retention: ~ 300 cc per RN. Successful insertion of Ko catheter by Urology on 07/09. Preoperative Clearance: METS > 4. Cardiology consulted, intermediate risk to undergo surgery due to his comorbidities and overall poor functional capacity however no absolute contraindications. NSQIP surgical risk calculator, he is at an above average risk of 5.6% with average risk of 3.9% for serious complications, above average risk for cardiac complication at 0.7% with average risk being 0.2% and above average risk of at 0.6% with average risk being 0.2%. Cardiology consulted, intermediate risk to undergo surgery due to his cormorbidities and overall poor functional capacity however no absolute contraindications. T9 and T10 endplate fracture status post mechanical fall with plans for T8-T11 stabilization for T9/T10 endplate fractures with Dr. Hicks PVD status post stent of right common iliac vein Hypertension: Lisinopril 2.5 mg PO QD. Hyperlipidemia: Lipitor 20 mg PO QHS. BPH: Flomax 0.4 mg PO QHS. Patient will need guardianship prior to surgery which is delayed. Case management on board. CODE STATUS: FULL CODE. DVT Prophylaxis: SCDs. GI Prophylaxis: Designated medical POA if patient is not able to make medical decisions for themselves: I have reviewed the following internal controls consultant notes: I have reviewed the results of the following tests: CBC, BMP. I have ordered the following tests: I have discussed the care of this patient with the following independent historian: RN, Case management. I have independently interpreted the following test below: I have discussed the management of this patient with the following physician: Objective - Vital Signs Vital signs: Vital Signs Temp 97.7 F 07/19/24 07:01 Pulse 63 07/19/24 07:01 Resp 17 07/19/24 07:01 BP 96/57 07/19/24 07:01 Pulse Ox 99 07/19/24 07:01 FiO2 Intake & Output 07/18/24 07/19/24 07/19/24 18:59 06:59 18:59 Output Total 600 350 Balance -600 -350 Output: Urine 600 350 Other: Voiding Method Indwelling Catheter Indwelling Catheter Indwelling Catheter - Labs CBC & Chem 7: 07/19/24 05:30 07/19/24 05:30 Labs: Abnormal Lab Results - Last 24 Hours (Table) 07/18/24 07/19/24 07/19/24 Range/Units 16:24 05:30 05:30 RBC 4.17 L (4.40-5.60) X 10*6/uL Hgb 12.6 L (13.0-17.0) g/dL MCHC 31.7 L (32.0-37.0) g/dL POC Glucose (mg/dL) 175 H (70-110) mg/dL Calcium 8.3 L (8.7-10.3) mg/dL Albumin 3.3 L (3.8-4.9) g/dL Albumin/Globulin Ratio 1.14 L (1.60-3.17) Ratio
[2024-07-20 05:28] LABS: Glucose,Whole Blood 96 mg/dL (70-110)
--- NOTE | 2024-07-20 11:22 | P.PN ---
Subjective Progress Note Date: 07/20/24 84-year-old male with PMH of PVD status post stent of the right common iliac vein, HTN, HLD presented to our facility as a transfer from [facility] for back and right sided hip pain. Patient reported he was walking in the parking lot and stepped up onto the curb with his left leg which is his bad leg and his leg gave out resulting in him falling backwards onto his bottom. Patient underwent evaluation at their facility. CTA chest/abdomen/pelvis was obtained showing acute T9-T10 inferior endplate AP directed extension type fracture with minimal widening at the anterior aspect to to 0.5 cm. Troponin was negative at less than 0.012. Alcohol was less than 10. CBC showed MCV of 98.9. BMP showed Cl of 109, glu 114, BUN 34.4, Cr 1.48, and GFR 48.01. Liver profile unremarkable. Coagulation profile normal findings. Magnesium 1.8. Patient was transferred to [facility] for evaluation by orthospine surgeon. Patient admitted under orthospine surgery team and we were consulted for medical management. 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 Cardiology consulted, patient is above average risk for surgical intervention, however there are no absolute contraindications for him to undergo emergent surgery at this time. Plans for T8-T11 stabilization for T9/T10 endplate fractures with Dr. Hicks on 07/08/2024. Surgery was cancelled due to his confusion and inability to obtain consent. Ammonia is < 9, B12 539, Folate 22.8, TSH 0.739, EEG showed moderate encephalopathy. Psychiatry reported that the patient does not have decision making capacity. Started on Seroquel 12.5 mg PO QHS. Case management on board for guardianship. 07/20 Patient was seen and examined. Eating breakfast. Sitter at bedside. Discussed with case management, guardianship hearing on 07/21. General: non toxic, no distress, appears at stated age Derm: warm, dry, venous stasis changes lower extremities Head: atraumatic, normocephalic, symmetric Eyes: EOMI, no lid lag, anicteric sclera Mouth: no lip lesion, mucus membranes moist Cardiovascular: S1S2 reg, no murmur Lungs: Clear to auscultation bilaterally, no rhonchi, no rales , no accessory muscle use Abd: Non distended. Non tender to palpation, + Ko Ext: no gross muscle atrophy, no edema, no contractures Neuro: no focal neuro deficits Psych: Alert, oriented x 1-2 Based on my assessment of this patient, this patient meets a high complexity level of care. Delirium: Psychiatry consulted patient does not have decision making capacity. Window side bed. Avoid sedative medications. Frequent re-direction if needed. B12, TSH, Folate, Ammonia, EEG wnl. Seroquel 12.5 mg PO QHS. Haldol IM PRN for agitation. Neurology and Psychiatry on board. Urinary retention: ~ 300 cc per RN. Successful insertion of Ko catheter by Urology on 07/09. Preoperative Clearance: METS > 4. Cardiology consulted, intermediate risk to undergo surgery due to his comorbidities and overall poor functional capacity however no absolute contraindications. NSQIP surgical risk calculator, he is at an above average risk of 5.6% with average risk of 3.9% for serious complications, above average risk for cardiac complication at 0.7% with average risk being 0.2% and above average risk of at 0.6% with average risk being 0.2%. Cardiology consulted, intermediate risk to undergo surgery due to his cormorbidities and overall poor functional capacity however no absolute contraindications. T9 and T10 endplate fracture status post mechanical fall with plans for T8-T11 stabilization for T9/T10 endplate fractures with Dr. Hicks PVD status post stent of right common iliac vein Hypertension: Lisinopril 2.5 mg PO QD. Hyperlipidemia: Lipitor 20 mg PO QHS. BPH: Flomax 0.4 mg PO QHS. Patient will need guardianship prior to surgery which is delayed. Case management on board. CODE STATUS: FULL CODE. DVT Prophylaxis: SCDs. GI Prophylaxis: Designated medical POA if patient is not able to make medical decisions for themselves: I have reviewed the following change management consultant notes: I have reviewed the results of the following tests: I have ordered the following tests: I have discussed the care of this patient with the following independent historian: Case management. I have independently interpreted the following test below: I have discussed the management of this patient with the following physician: Objective - Vital Signs Vital signs: Vital Signs Temp 97.9 F 07/20/24 07:03 Pulse 64 07/20/24 07:03 Resp 15 07/20/24 07:03 BP 91/53 07/20/24 07:03 Pulse Ox 96 07/20/24 07:03 FiO2 Intake & Output 07/19/24 07/20/24 07/20/24 18:59 06:59 18:59 Output Total 250 Balance -250 Output: Urine 250 Other: Voiding Method Indwelling Catheter Indwelling Catheter Indwelling Catheter # Bowel Movements 2 - Labs CBC & Chem 7: 07/19/24 05:30 07/19/24 05:30
[2024-07-21 05:54] LABS: Glucose,Whole Blood 103 mg/dL (70-110)
--- NOTE | 2024-07-21 12:13 | P.PN ---
Subjective Progress Note Date: 07/21/24 84-year-old male with PMH of PVD status post stent of the right common iliac vein, HTN, HLD presented to our facility as a transfer from [facility] for back and right sided hip pain. Patient reported he was walking in the parking lot and stepped up onto the curb with his left leg which is his bad leg and his leg gave out resulting in him falling backwards onto his bottom. Patient underwent evaluation at their facility. CTA chest/abdomen/pelvis was obtained showing acute T9-T10 inferior endplate AP directed extension type fracture with minimal widening at the anterior aspect to to 0.5 cm. Troponin was negative at less than 0.012. Alcohol was less than 10. CBC showed MCV of 98.9. BMP showed Cl of 109, glu 114, BUN 34.4, Cr 1.48, and GFR 48.01. Liver profile unremarkable. Coagulation profile normal findings. Magnesium 1.8. Patient was transferred to [facility] for evaluation by orthospine surgeon. Patient admitted under orthospine surgery team and we were consulted for medical management. 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 Cardiology consulted, patient is above average risk for surgical intervention, however there are no absolute contraindications for him to undergo emergent surgery at this time. Plans for T8-T11 stabilization for T9/T10 endplate fractures with Dr. Hicks on 07/08/2024. Surgery was cancelled due to his confusion and inability to obtain consent. Ammonia is < 9, B12 539, Folate 22.8, TSH 0.739, EEG showed moderate encephalopathy. Psychiatry reported that the patient does not have decision making capacity. Started on Seroquel 12.5 mg PO QHS. Case management on board for guardianship. 07/21 Patient was seen and examined. Sleeping comfortably. Sitter at bedside. Guardianship hearing scheduled for today. General: non toxic, no distress, appears at stated age Derm: warm, dry, venous stasis changes lower extremities Head: atraumatic, normocephalic, symmetric Eyes: EOMI, no lid lag, anicteric sclera Mouth: no lip lesion, mucus membranes moist Cardiovascular: S1S2 reg, no murmur Lungs: Clear to auscultation bilaterally, no rhonchi, no rales , no accessory muscle use Abd: Non distended. Non tender to palpation, + Ko Ext: no gross muscle atrophy, no edema, no contractures Neuro: no focal neuro deficits Psych: Alert, oriented x 1-2 Based on my assessment of this patient, this patient meets a high complexity level of care. Delirium: Psychiatry consulted patient does not have decision making capacity. Window side bed. Avoid sedative medications. Frequent re-direction if needed. B12, TSH, Folate, Ammonia, EEG wnl. Seroquel 12.5 mg PO QHS. Haldol IM PRN for agitation. Neurology and Psychiatry on board. Urinary retention: ~ 300 cc per RN. Successful insertion of Ko catheter by Urology on 07/09. Preoperative Clearance: METS > 4. Cardiology consulted, intermediate risk to undergo surgery due to his comorbidities and overall poor functional capacity however no absolute contraindications. NSQIP surgical risk calculator, he is at an above average risk of 5.6% with average risk of 3.9% for serious complications, above average risk for cardiac complication at 0.7% with average risk being 0.2% and above average risk of at 0.6% with average risk being 0.2%. Cardiology consulted, intermediate risk to undergo surgery due to his cormorbidities and overall poor functional capacity however no absolute contraindications. T9 and T10 endplate fracture status post mechanical fall with plans for T8-T11 stabilization for T9/T10 endplate fractures with Dr. Hicks PVD status post stent of right common iliac vein Hypertension: Lisinopril 2.5 mg PO QD. Hyperlipidemia: Lipitor 20 mg PO QHS. BPH: Flomax 0.4 mg PO QHS. Patient will need guardianship prior to surgery which is delayed. Case management on board. CODE STATUS: FULL CODE. DVT Prophylaxis: SCDs. GI Prophylaxis: Designated medical POA if patient is not able to make medical decisions for the mselves: I have reviewed the following national sales consultant notes: I have reviewed the results of the following tests: I have ordered the following tests: I have discussed the care of this patient with the following independent historian: Case management. I have independently interpreted the following test below: I have discussed the management of this patient with the following physician: Objective - Vital Signs Vital signs: Vital Signs Temp 97.9 F 07/21/24 07:07 Pulse 70 07/21/24 07:07 Resp 16 07/21/24 07:07 BP 113/72 07/21/24 07:07 Pulse Ox 95 07/21/24 08:01 FiO2 Intake & Output 07/20/24 07/21/24 07/21/24 18:59 06:59 18:59 Output Total 1000 350 Balance -1000 -350 Output: Urine 1000 350 Other: Voiding Method Indwelling Catheter Indwelling Catheter # Bowel Movements 1 - Labs CBC & Chem 7: 07/19/24 05:30 07/19/24 05:30
[2024-07-22 05:40] LABS: Glucose,Whole Blood 112 mg/dL (70-110)
--- NOTE | 2024-07-22 09:15 | P.PN ---
Subjective Progress Note Date: 07/22/24 Principal diagnosis: T9-10 AO B2 Extension type fracture through ankylosed spine, altered mental status. Patient has been granted Public Guardian, surgery will be scheduled for tomorrow 07/23/24 in the afternoon, Please hold Lovenox injections, may resume 07/24/24 at 0900. Objective - Vital Signs Vital signs: Vital Signs Temp 98.1 F 07/22/24 06:54 Pulse 68 07/22/24 06:54 Resp 17 07/22/24 06:54 BP 111/56 07/22/24 06:54 Pulse Ox 97 07/22/24 06:54 FiO2 Intake & Output 07/21/24 07/22/24 07/22/24 18:59 06:59 18:59 Output Total 875 350 Balance -875 -350 Output: Urine 875 350 Other: Voiding Method Indwelling Catheter Indwelling Catheter # Bowel Movements 1 - Exam Inspection: Negative for any open fractures, ecchymosis, significant erythema/ulcers. Sensation: Sensation is equal, symmetric, bilaterally intact throughout the upper and lower extremities Palpation: Tender to palpation over the thoracic spine. Range of motion: Patient does have full range of motion bilateral upper and lower extremities on exam Motor: 5/5 in all major motor groups in the bilateral upper and 4-/5 lower extremities Special tests: Negative Homans bilaterally. Negative Marcy bilaterally. Negative clonus bilaterally. Neurovascular: Radial pulse intact, 2+ bilaterally. Cap refill under 3 seconds in digits upper extremities. - Labs CBC & Chem 7: 07/19/24 05:30 07/19/24 05:30 Labs: Abnormal Lab Results - Last 24 Hours (Table) 07/22/24 Range/Units 05:38 POC Glucose (mg/dL) 112 H (70-110) mg/dL Assessment and Plan Assessment: T9-10 AO B2 Extension type fracture through ankylosed spine Altered mental status. Plan: Public Guardian has been appointed. Surgery has been scheduled for tomorrow 07/23/24, hold Lovenox injections, may resume 07/24/24 at 0900. Patient is to be NPO at [place]. 2. Appreciate medical management 3. Pain management -Continue with Tylenol 4. GI prophylaxis -Senna 5. DVT prophylaxis -Lovenox 6. PT/OT - Bedrest 7. Maintain swan catheter. 8. Appreciate consult
--- NOTE | 2024-07-22 13:40 | P.PN ---
Subjective Progress Note Date: 07/22/24 84-year-old male with PMH of PVD status post stent of the right common iliac vein, HTN, HLD presented to our facility as a transfer from Replaced by [facility] for back and right sided hip pain. Patient reported he was walking in the parking lot and stepped up onto the curb with his left leg which is his bad leg and his leg gave out resulting in him falling backwards onto his bottom. Patient underwent evaluation at their facility. CTA chest/abdomen/pelvis was obtained showing acute T9-T10 inferior endplate AP directed extension type fracture with minimal widening at the anterior aspect to to 0.5 cm. Troponin was negative at less than 0.012. Alcohol was less than 10. CBC showed MCV of 98.9. BMP showed Cl of 109, glu 114, BUN 34.4, Cr 1.48, and GFR 48.01. Liver profile unremarkable. Coagulation profile normal findings. Magnesium 1.8. Patient was transferred to [facility] for evaluation by orthospine surgeon. Patient admitted under orthospine surgery team and we were consulted for medical management. 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 Cardiology consulted, patient is above average risk for surgical intervention, however there are no absolute contraindications for him to undergo emergent surgery at this time. Plans for T8-T11 stabilization for T9/T10 endplate fractures with Dr. Hicks on 07/08/2024. Surgery was cancelled due to his confusion and inability to obtain consent. Ammonia is < 9, B12 539, Folate 22.8, TSH 0.739, EEG showed moderate encephalopathy. Psychiatry reported that the patient does not have decision making capacity. Started on Seroquel 12.5 mg PO QHS. Case management on board for guardianship. 07/22 Patient was seen and examined. Sleeping comfortably. Public guardian appointed. Plans for OR tomorrow. General: non toxic, no distress, appears at stated age Derm: warm, dry, venous stasis changes lower extremities Head: atraumatic, normocephalic, symmetric Eyes: EOMI, no lid lag, anicteric sclera Mouth: no lip lesion, mucus membranes moist Cardiovascular: S1S2 reg, no murmur Lungs: Clear to auscultation bilaterally, no rhonchi, no rales , no accessory muscle use Abd: Non distended. Non tender to palpation, + Ko Ext: no gross muscle atrophy, no edema, no contractures Neuro: no focal neuro deficits Psych: Alert, oriented x 1-2 Based on my assessment of this patient, this patient meets a high complexity level of care. Delirium: Psychiatry consulted patient does not have decision making capacity. Window side bed. Avoid sedative medications. Frequent re-direction if needed. B12, TSH, Folate, Ammonia, EEG wnl. Seroquel 12.5 mg PO QHS. Haldol IM PRN for agitation. Neurology and Psychiatry on board. Urinary retention: ~ 300 cc per RN. Successful insertion of Ko catheter by Urology on 07/09. Preoperative Clearance: METS > 4. Cardiology consulted, intermediate risk to undergo surgery due to his comorbidities and overall poor functional capacity however no absolute contraindications. NSQIP surgical risk calculator, he is at an above average risk of 5.6% with average risk of 3.9% for serious complications, above average risk for cardiac complication at 0.7% with average risk being 0.2% and above average risk of at 0.6% with average risk being 0.2%. Cardiology consulted, intermediate risk to undergo surgery due to his cormorbidities and overall poor functional capacity however no absolute contraindications. T9 and T10 endplate fracture status post mechanical fall with plans for T8-T11 stabilization for T9/T10 endplate fractures with Dr. Hicks on 07/23. PVD status post stent of right common iliac vein Hypertension: Lisinopril 2.5 mg PO QD. Hyperlipidemia: Lipitor 20 mg PO QHS. BPH: Flomax 0.4 mg PO QHS. Patient will need guardianship prior to surgery which is delayed. Case management on board. CODE STATUS: FULL CODE. DVT Prophylaxis: SCDs. GI Prophylaxis: Designated medical POA if patient is not able to make medical decisions for the mselves: I have reviewed the following internet marketing consultant notes: Ortho. I have reviewed the results of the following tests: I have ordered the following tests: I have discussed the care of this patient with the following independent historian: I have independently interpreted the following test below: I have discussed the management of this patient with the following physician: Objective - Vital Signs Vital signs: Vital Signs Temp 98.1 F 07/22/24 06:54 Pulse 68 07/22/24 06:54 Resp 17 07/22/24 06:54 BP 111/56 07/22/24 06:54 Pulse Ox 97 07/22/24 06:54 FiO2 Intake & Output 07/21/24 07/22/24 07/22/24 18:59 06:59 18:59 Output Total 875 350 Balance -875 -350 Output: Urine 875 350 Other: Voiding Method Indwelling Catheter Indwelling Catheter # Bowel Movements 1 - Labs CBC & Chem 7: 07/19/24 05:30 07/19/24 05:30 Labs: Abnormal Lab Results - Last 24 Hours (Table) 07/22/24 Range/Units 05:38 POC Glucose (mg/dL) 112 H (70-110) mg/dL
--- NOTE | 2024-07-22 14:43 | P.PN ---
Progress Note - Text Progress Note Date: 07/22/24 Patient seen and examined today. He is lucid, slightly confused, but able to answer all questions. He remembered who I was, called me by name and asked if I was going to fix his back. I stated Yes, and tomorrow. He was good with this. He states his pain has decreased, but he did just get some meds. He states he can roll side to side, but was unable to do so when prompted due to pain. He states he can move his legs but they feel weak which is related to his being in bed. Denies any bowel or baldder issues. Ko in place. States he is ready for surgery tomorrow. Risks and benefits discussed at length. He was ready and willing to proceed. Guardianship established with the state and permission granted for surgery. Will proceed as scheduled tomorrow. 1.5 hr surgery.
--- NOTE | 2024-07-22 18:01 | P.PN ---
Subjective Progress Note Date: 07/22/24 During this admission of seen the patient last on 07/10/2024 and then the patient was being followed up by Dr. Negrete. Please refer to his note for further details. Patient is tentatively scheduled for surgery by orthopedic surgery team tomorrow. It seems the patient is more lucid. According to the nurse patient has a public guardian. Objective - Vital Signs Vital signs: Vital Signs Temp 98.3 F 07/22/24 13:51 Pulse 67 07/22/24 13:51 Resp 18 07/22/24 13:51 BP 104/63 07/22/24 13:51 Pulse Ox 98 07/22/24 13:51 FiO2 Intake & Output 07/21/24 07/22/24 07/22/24 18:59 06:59 18:59 Output Total 875 350 Balance -875 -350 Output: Urine 875 350 Other: Voiding Method Indwelling Catheter Indwelling Catheter # Bowel Movements 1 - Exam General: Lying in bed and is not in acute distress. Neuro: Limited The patient is awake alert oriented to self stated he is in hospital. He correctly stated current year and the month. He is following simple commands. Appear somewhat confused better compared to the last time I have seen him 2 weeks ago. No aphasia from limited language No facial weakness. No dysarthria Motor the strength is limited left upper extremities 5 out of 5 while right upper extremity is limited and is at least 4. - Labs CBC & Chem 7: 07/19/24 05:30 07/19/24 05:30 Labs: Abnormal Lab Results - Last 24 Hours (Table) 07/22/24 Range/Units 05:38 POC Glucose (mg/dL) 112 H (70-110) mg/dL Assessment and Plan Assessment: This is an 84-year-old gentleman who was transferred from outside hospital on 07/06/2024 for a fall in which his foot got stuck in a curb that resulted in a fall and he had imaging at the outpatient facility and it showed T9-T10 acute fracture. During this hospital visit patient is having fluctuation in mentation Delirium likely hospital induced and his medication. CT of the head is unremarkable for any acute or subacute process. EEG is moderate encephalopathy but no discharges or seizure Acute T9-T10 fracture. History of peripheral vascular disease status post stenting Hypertension Hyperlipidemia Plan: Psychiatry has seen the patient, diagnosed with neurocognitive deficit, secondary to systemic causesresolving. Patient is not able to make reasonable medical decision currently. He is on Seroquel 12.5mg qhs by primary team and that can be increased to 25mg qhs and if needed 50mg qhs. Patient on Paxil 40 mg daily. He is also on Haldol 0.5mg IM PRN. If possible try to limit opiates/sedatives. Patient has not received Dilaudid or [place] since 07/08/2024. Patient has a public guardian. Patient mentation is improving since two weeks seeing him but still has confusion. He is schedule for surgery tomorrow by Orthopedic team. Will defer the rest of the medical management to primary and other specialist The plan is discussed with his nurse. There is no further neurological work-up. Will sign off. Please reconsult if n eeded. Time with Patient: Less than 30
[2024-07-23] MEDS ORDERED: TRANEXAMIC 1,000 MG/100ML-NACL 1,000 MG in SALINE 1 100ML.BAG IVPB PRN (09:35)
[2024-07-23] MEDS: IV FLUID CONTINUATION 1,000 ML IV ONE ×3 (09:37→13:44)
[2024-07-23 09:43] LABS: Glucose,Whole Blood 97 mg/dL (70-110)
--- NOTE | 2024-07-23 10:02 | P.PN ---
Progress Note - Text Progress Note Date: 07/23/24 patient seen and examined today in the preoperative area we discussed his surgery as well as risks and benefits of the surgery. The patient is completely lucid at this point answering questions appropriately knows where he is AO ex 3. We discussed the surgery as well as the reasons for surgery as well as the alternatives to surgery and the potential outcomes. He is comfortable proceeding with the surgery as outlined. Preoperative labs and workup has been done anesthesias assessing the patient. Guardianship has been established. I spoke with medicine is on board as well for surgical intervention. Patient is ready to proceed today.
[2024-07-23] MEDS: MIDAZOLAM 2 MG/2 ML VIAL IVP ONE (10:33)
[2024-07-23] MEDS ORDERED: SUCCINYLCHOLINE CHLORIDE 200 MG/10 ML VIAL IV ONE (10:48)
[2024-07-23] MEDS ORDERED: PROPOFOL 10 MG/ML 20 ML VIAL IV ONE (10:48)
[2024-07-23] MEDS ORDERED: NEOSTIGMINE 1 MG/ML 10 ML VIAL ONE (10:48)
[2024-07-23] MEDS ORDERED: fentaNYL (PF) 50 MCG/ML 2 ML AMP ONE (10:48)
[2024-07-23] MEDS ORDERED: GLYCOPYRROLATE 0.2 MG/ML 2 ML VIAL ONE (10:48)
[2024-07-23] MEDS ORDERED: LIDOCAINE 1% INJ 10MG/ML (20 ML MDV) ONE (10:48)
[2024-07-23] MEDS ORDERED: TRANEXAMIC 1,000 MG/100ML-NACL PREMIX BAG ONE (10:48)
[2024-07-23] MEDS ORDERED: ROCURONIUM 10 MG/ML (5 ML VIAL) IV ONE (10:48)
[2024-07-23] MEDS ORDERED: PHENYLEPHRINE 10 MG/ML VIAL ONE (10:48)
[2024-07-23] MEDS: SODIUM CHLORIDE 0.9% 100 ML with ceFAZolin 2,000 MG IV ONE (10:53)
[2024-07-23] MEDS: LIDOCAINE 2%-EPI 1:100,000 20 ML VIAL SQ ONE (12:29)
[2024-07-23] MEDS: BUPIVACAINE (PF) 0.25% 30 ML VIAL SQ ONE (12:30)
--- NOTE | 2024-07-23 13:02 | P.OP ---
Date of Procedure: 07/23/24 Preoperative Diagnosis: Current Active Problems Ankylosis of thoracic spine (Acute) Fracture of body of posterior thoracic vertebra (Acute) Closed fracture of thoracic vertebral body (Acute) Thoracic spine fracture (Acute) Encephalopathy (Acute) Fall (Acute) Postoperative Diagnosis: Current Active Problems Ankylosis of thoracic spine (Acute) Fracture of body of posterior thoracic vertebra (Acute) Closed fracture of thoracic vertebral body (Acute) Thoracic spine fracture (Acute) Encephalopathy (Acute) Fall (Acute) Procedure(s) Performed: OPEN TREATMENT T9-10 AO TYPE B2 FRACTURE, UNSTABLE THROUGH AN ANKYLOSED SPINE T8-T11 POSTERIOR STABILIZED FUSION T8-11 SEGMENTAL INSTRUMENTATION VERTEBRAL BODY AUGMENTATION AND SCREW AUGMENTATION WITH CEMENT T8 AND T11 USE OF [employer] NAVIGATION FOR SCREW PLACEMENT USE OF IONM Implants: NOE EVEREST RODS AND SCREWS AUTOGRAFT Anesthesia: GETA Surgeon: Franco Hicks Industrial Refrigeration Mechanic #1: Joaquin Alarcon (WAS PRESENT AND ASSISTED WITH ALL ASPECTS OF THE CASE FROM POSITION TO DRESSING) Estimated Blood Loss (ml): 150 IV fluids (ml): 1,700 Urine output (ml): 400 Pathology: none sent Condition: stable Disposition: PACU Indications for Procedure: 84-year-old male presented to [facility] after a fall from standing at home. The patient is normally independent lives of his at home and fell he was unable to ambulate afterwards had severe thoracic back pain. His brought to the emergency department via EMS after being found down by one of his friends. He was found to have an unstable extension type fracture AO type BII 1519 10 region. The patient was set and scheduled for surgery for stabilization fusion however he developed encephalopathy and confusion was able to consent for surgery about 1.5 weeks ago. He has no family or next can and sewed guardianship was established for him which took about a week. In that timeframe the patient was on bedrest was turned spinal precautions and was given DVT prophylaxis as well as GI prophylaxis. He was worked up by neurology medicine and nephrology pulmonology and multiple services to deem his potential for surgery. Ultimately he was cleared for surgery and guardianship agreed that surgical intervention was necessary as the delay in care was decreasing his maximum improvement potential. This was discussed with the patient once he became loose again and he was very comfortable with surgery. He remembered. I was every time I entered his room was able to state that he was comfortable with surgical intervention. We discussed risks and benefits at length again including risks of bleeding infection damage to surrounding tissue and risk of reoperation risk of anesthesia up to and including is witnessed these risks and all the risks of surgery. He is willing to proceed today. Description of Procedure: The patient was seen and examined in the preoperative area. All preoperative protocols were followed. Informed consent was obtained risks and benefits of the procedure were discussed at length. Risks including bleeding infection damage to the surrounding tissue and risk of reoperation were discussed with the patient. Risk of anesthesia up to and including was a discussed with the patient. These are outlined in the risk review. They were willing to accept these risks and all of the risks of surgery. The patient was given a weight- based dose of antibiotics in the form of 2 g Ancef. The patient was seen and evaluated by the anesthesia team who deemed them fit for surgery. The site was marked, the patient was willing to proceed with the procedure. The patient was transferred to the operative suite by the Department of anesthesia. They were then drifted off to sleep by the department anesthesia and [anesthesia type] was performed. The patient tolerated this well. [Ko catheter was placed by nursing staff, atraumatically]. Once confirmation of lines and ventilation the patient was transferred to a [prone Mauro table very carefully]. All bony prominences including wrists, elbows, axilla, chest, hips, and thighs, and feet were padded very well. Special attention was paid to the genitalia and these were padded accordingly. SCDs were placed on bilateral lower extremities and were connected. Arms were well padded and placed [on arm boards up and out in the 90/90 position]. Once in position, again we confirmed good ventilation capabilities and that lines were running appropriately. The patient's thoracic spine spine was then exposed. 1010s were placed outlining the incision site. Standard alcohol was used to clean the incision site and allowed to dry. C-arm was used to biomark the patient and confirm level for i ncision which was marked with a skin marker. Operative briefing was performed with all teams and everyone in agreement to proceed. The patient was then prepped and draped in a normal sterile fashion. Timeout was then performed and all parties were in agreement with the procedure to be performed. Midline skin incision was made over the T10-T11 region dissection taken down the spinous process region. Fascia was split midline and a subperiosteal dissection was done over the lamina of T10. Spinous processes clamp for the [employer] Review[employer] navigation was then placed and secured in this position. 3-D intraoperative C- arm spent was then obtained and registered and confirmed to be accurate once confirmed to be accurate navigated Jamshidi was passed into the pedicles bilaterally from T8 through T11 once in position screw placement was saved on the navigation and a wire was placed in void. Once wires were all placed we then obtained AP and lateral fluoroscopy which confirmed wires to be in good p osition. We then under lateral fluoroscopy place screws over wires into optimal positions. Once the screws were in place they were tested and were stable. we then under lateral fluoroscopy cemented and augmented T8 NT 11 vertebral body and screws for increased for strength and increased strength of the bone. There is no cement extravasation and there was no monitoring changes or anesthetic becky nges.Facet joints were then decorticated the posterior lateral fusion. Autograft was allowed to sit in this area. We then sized and selected rods and bent them accordingly. Rods were then placed subfascially through each 2 head and tabs were secured with set screws starting at the bottom and sequentially reducing the rods into cranial screws for reduction of the fracture. Good apposition of the bone was obtained and good reduction of the fracture was obtained. Neuro monitoring remained stable throughout this process. Set screws were final tightened and tabs broken. AP and lateral final fluoroscopic images confirmed good placement of screws and rods and hardware as well as good reduction of fracture maintained in stable alignment. Wounds were then copiously irrigated with normal sterile saline. Deep fascia was closed with 0 Vicryl superficial fascia closed with 0 Vicryl and 2-0 Vicryl and skin was closed with skin sary. Wound edges approximated very well. The wounds were then cleaned with alcohol and dressed sterilely with Adaptic 4 x 4 ABDs and Tegaderms. The patient was transferred back to their hospital bed atraumatically. Patient was then awakened and extubated by the department of anesthesia having tolerated the procedure very well with no complications. They were transferred to the postoperative care unit in stable condition.
[2024-07-23] MEDS ORDERED: MAGNESIUM HYDROXIDE 2,400 MG/30 ML CUP PO PRN (13:03)
[2024-07-23] MEDS ORDERED: HYDROcodone/APAP 5-325MG 1 EACH TAB PO PRN (13:03)
[2024-07-23] MEDS ORDERED: ONDANSETRON 4 MG/2 ML VIAL IVP PRN (13:03)
[2024-07-23] MEDS ORDERED: SENNOSIDES-DOCUSATE SODIUM 1 EACH TAB PO PRN (13:03)
--- NOTE | 2024-07-23 13:32 | P.ANPRN ---
Procedure Note - Anesthesia - Invasive Line Right Arterial Line Time Out Performed: Yes (1015) Date of Procedure: 07/23/24 Time of Procedure: 10:16 Location of Patient: PreOp Preparation: Sterile Prep, Sterile Dressing Arterial Line Location: Radial (right) Ultrasound Used: Yes Purpose - Visualization and Identification of Vasculature: Yes Needle Guage: 20g Image Stored and Saved: Yes Narrative: Invasive line placement per sterile protocol utilized.
[2024-07-23] MEDS: HYDROmorphone 0.5 MG/0.5 ML SYRINGE IVP PRN (13:42)
--- NOTE | 2024-07-23 14:08 | P.PN ---
Subjective Progress Note Date: 07/23/24 84-year-old male with PMH of PVD status post stent of the right common iliac vein, HTN, HLD presented to our facility as a transfer from [facility] for back and right sided hip pain. Patient reported he was walking in the parking lot and stepped up onto the curb with his left leg which is his bad leg and his leg gave out resulting in him falling backwards onto his bottom. Patient underwent evaluation at their facility. CTA chest/abdomen/pelvis was obtained showing acute T9-T10 inferior endplate AP directed extension type fracture with minimal widening at the anterior aspect to to 0.5 cm. Troponin was negative at less than 0.012. Alcohol was less than 10. CBC showed MCV of 98.9. BMP showed Cl of 109, glu 114, BUN 34.4, Cr 1.48, and GFR 48.01. Liver profile unremarkable. Coagulation profile normal findings. Magnesium 1.8. Patient was transferred to [facility] for evaluation by orthospine surgeon. Patient admitted under orthospine surgery team and we were consulted for medical management. 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 Cardiology consulted, patient is above average risk for surgical intervention, however there are no absolute contraindications for him to undergo emergent surgery at this time. Plans for T8-T11 stabilization for T9/T10 endplate fractures with Dr. Hicks on 07/08/2024. Surgery was cancelled due to his confusion and inability to obtain consent. Ammonia is < 9, B12 539, Folate 22.8, TSH 0.739, EEG showed moderate encephalopathy. Psychiatry reported that the patient does not have decision making capacity. Started on Seroquel 12.5 mg PO QHS. Case management on board for guardianship. 07/23 Patient was seen and examined this morning. Sleeping comfortably. Plans for surgery later today. General: non toxic, no distress, appears at stated age Derm: warm, dry, venous stasis changes lower extremities Head: atraumatic, normocephalic, symmetric Eyes: EOMI, no lid lag, anicteric sclera Mouth: no lip lesion, mucus membranes moist Cardiovascular: S1S2 reg, no murmur Lungs: Clear to auscultation bilaterally, no rhonchi, no rales , no accessory muscle use Abd: Non distended. Non tender to palpation, + Ko Ext: no gross muscle atrophy, no edema, no contractures Neuro: no focal neuro deficits Psych: Alert, oriented x 1-2 Based on my assessment of this patient, this patient meets a high complexity level of care. Delirium: Psychiatry consulted patient does not have decision making capacity. Window side bed. Avoid sedative medications. Frequent re-direction if needed. B12, TSH, Folate, Ammonia, EEG wnl. Seroquel 12.5 mg PO QHS. Haldol IM PRN for agitation. Neurology and Psychiatry on board. Urinary retention: ~ 300 cc per RN. Successful insertion of Ko catheter by Urology on 07/09. Preoperative Clearance: METS > 4. Cardiology consulted, intermediate risk to un dergo surgery due to his comorbidities and overall poor functional capacity however no absolute contraindications. NSQIP surgical risk calculator, he is at an above average risk of 5.6% with average risk of 3.9% for serious complications, above average risk for cardiac complication at 0.7% with average risk being 0.2% and above average risk of at 0.6% with average risk being 0.2%. Cardiology consulted, intermediate risk to undergo surgery due to his cormorbidities and overall poor functional capacity however no absolute contraindications. T9 and T10 endplate fracture status post mechanical fall with plans for T8-T11 stabilization for T9/T10 endplate fractures with Dr. Hicks on 07/23. PVD status post stent of right common iliac vein Hypertension: Lisinopril 2.5 mg PO QD. Hyperlipidemia: Lipitor 20 mg PO QHS. BPH: Flomax 0.4 mg PO QHS. Patient will need guardianship prior to surgery which is delayed. Case management on board. CODE STATUS: FULL CODE. DVT Prophylaxis: SCDs. GI Prophylaxis: Designated medical POA if patient is not able to make medical decisions for themselves: I have reviewed the following workforce management consultant notes: Ortho. I have reviewed the results of the following tests: I have ordered the following tests: I have discussed the care of this patient with the following independent historian: I have independently interpreted the following test below: I have discussed the management of this patient with the following physician: Objective - Vital Signs Vital signs: Vital Signs Temp 97.2 F L 07/23/24 06:55 Pulse 81 07/23/24 13:58 Resp 15 07/23/24 13:58 BP 124/55 07/23/24 13:58 Pulse Ox 95 07/23/24 13:58 FiO2 Intake & Output 07/22/24 07/23/24 07/23/24 18:59 06:59 18:59 Intake Total 860 1800 Output Total 520 300 275 Balance -055 791 2785 Intake: IV 1800 Oral 860 Output: Urine 520 300 200 Estimated Blood Loss 75 Other: Voiding Method Indwelling Catheter Indwelling Catheter # Bowel Movements 2 - Labs CBC & Chem 7: 07/19/24 05:30 07/19/24 05:30
--- NOTE | 2024-07-23 14:35 | XR ---
Fluoroscopy History: PLDF IN OR T9-10 PLDF T9-T10 [facility], , 07/23/2024 2:33 PM
--- NOTE | 2024-07-23 14:36 | FL ---
Fluoroscopy History: PLDF IN OR T9-10 PLDF T9-T10 +54sexc fluoro time 405.52 DAP [facility], , 07/23/2024 2:34 PM
[2024-07-23] MEDS: LACTATED RINGERS 1,000 ML IV SCH (14:45)
[2024-07-23] MEDS: HYDROmorphone 1 MG/ML 1 ML SYRINGE IVP PRN (15:51)
[2024-07-23] MEDS: ENOXAPARIN 40 MG/0.4 ML SYRINGE SQ SCH (18:13)
[2024-07-23] MEDS: CYCLOBENZAPRINE 5 MG TAB PO PRN (21:19)
--- NOTE | 2024-07-23 22:45 | CT ---
EXAMINATION TYPE: CT thoracic spine wo con CT DLP: 2223.3 mGycm, Automated exposure control for dose reduction was used. DATE OF EXAM: 07/23/2024 6:44 PM COMPARISON: CT chest abdomen and pelvis 07/05/2024, CT thoracic lumbar spine 07/06/2024, CT thoracic sp ine 04/22/2023. CLINICAL INDICATION:Male, 84 years old with history of s/p T8-T11 stabilization; PHH, post-op TECHNIQUE: Axial images of the thoracic spine were obtained without contrast. Coronal and sagittal re formats were performed. FINDINGS: DISH throughout the thoracic spine redemonstrated. Redemonstration of acute fracture throug h the anterior aspect of the skeletal hyperostosis at T9-T10 with extension through the anterior and inferior cortex of the T9 vertebral body. There is again anterior widening of the disc space. Postsur gical changes with bilateral pedicular screws and rods involving T8-T11. Hardware appears intact with appropriate alignment. This creates streak artifact which limits evaluation. Vertebral cement involv ing the T8 and T11 vertebral bodies. Posterior skin sary identified with trace soft tissue gas fro m surgical intervention. No new fractures identified. No definitive soft tissue fluid collection iden tified. No significant central canal stenosis within the limitations of streak artifact. Cardiomegaly with small hiatal hernia. Dependent lower lobe suspect atelectasis. Partial visualizatio n left thyroid lobe 2.1 cm hypodense nodule with peripheral calcification. Nonobstructive left renal 3 mm calculus. IMPRESSION: Postsurgical changes from posterior T8-T10 stabilization for previously seen T9 vertebral body fractu re with extension through anterior DISH. Hardware appears intact with normal alignment. No CT evidenc e for complication. [facility], , 07/23/2024 10:43 PM
[2024-07-24 06:50] LABS: Glucose,Whole Blood 109 mg/dL (70-110)
[2024-07-24 09:07] LABS: Glucose,Whole Blood 107 mg/dL (70-110)
--- NOTE | 2024-07-24 09:09 | P.PN ---
Subjective Progress Note Date: 07/24/24 Principal diagnosis: Ankylosis of thoracic spine (Acute) Fracture of body of posterior thoracic vertebra (Acute) Closed fracture of thoracic vertebral body (Acute) Thoracic spine fracture (Acute) Encephalopathy (Acute) Fall (Acute) Patient was seen at bedside this morning lying in semirecumbent position. Patient says he is looking forward to working with therapy later this morning. He says he does have a fair amount of pain to the back at this time. Ko catheter is currently in place. SCDs and DONNA hose are present on bilateral lower extremities. Patient denies any other significant issues at this time. Objective - Vital Signs Vital signs: Vital Signs Temp 98.4 F 07/24/24 07:39 Pulse 87 07/24/24 07:39 Resp 20 07/24/24 07:39 BP 109/62 07/24/24 07:39 Pulse Ox 94 L 07/24/24 07:39 FiO2 Intake & Output 07/23/24 07/24/24 07/24/24 18:59 06:59 18:59 Intake Total 2600 Output Total 375 325 Balance 2225 -325 Intake: IV 2600 Output: Urine 300 325 Estimated Blood Loss 75 Other: Voiding Method Indwelling Catheter Indwelling Catheter - Exam Inspection: Negative for any open fracture, significant erythema/ecchymosis/open wounds. Sensation: Equal, symmetric, bilateral intact throughout the upper and lower extremities on exam Palpation: moderate TTP of lower thoracic spine at midline. Fair amount TTP over lower lumbar spine at midline and in right Si joint. Nontender to palpation throughout rest of exam. Range of motion: Patient does have good range of motion throughout bilateral upper extremities on exam. Patient has good range of motion throughout right lower extremity on exam. There is limited range of motion throughout left lower extremity and hip flexors extension left knee flexion and extension and dorsi/plantarflexion of the left ankle secondary to referred pain to the low back as well as weakness in the leg. Motor: 4/5 in all major motor groups in the right lower extremity. 4-/5 in all major motor groups in left lower extremity. Neurovascular: Radial pulse intact, 2+ bilaterally. Cap refill under 3 seconds in digits of upper extremities Special test: Negative Mendel bilaterally. Negative clonus bilaterally. Negative Marcy bilaterally. - Labs CBC & Chem 7: 07/19/24 05:30 07/19/24 05:30 Assessment and Plan Assessment: Ankylosis of thoracic spine (Acute) Fracture of body of posterior thoracic vertebra (Acute) Closed fracture of thoracic vertebral body (Acute) Thoracic spine fracture (Acute) Encephalopathy (Acute) Fall (Acute) Postop day 1 status post: OPEN TREATMENT T9-10 AO TYPE B2 FRACTURE, UNSTABLE THROUGH AN ANKYLOSED SPINE T8-T11 POSTERIOR STABILIZED FUSION Plan: 1. Mid back pain; low back pain; T9/T10 endplate fractures; ankylosis of the thoracic spine -surgery performed yesterday, 07/23/24open treatment T9- 10 AO type B2 fracture, unstable through an ankylosed spine and T8-T11 posterior stabilized fusion -patient stable bedside this morning with dressing in place over thoracic spine. Maintain dressings clean, dry. Patient may weight-bear as tolerated with walker and TLSO brace on while up and about with therapy. Pain medication as needed. Appreciate other specialty recommendations. Continue Lovenox daily for DVT prophylaxis. We will continue to follow patient during stay in hospital. 2. Appreciate medical, cardio and neurology management 3. Pain management - norco; flexeril; Tylenol 4. DVT prophylaxis -Lovenox; SCDs and DONNA hose 5. GI prophylaxis - senna; milk of magnesia 6. PT/OT -TLSO brace at bedside. Patient may weight-bear as tolerated with walker and assistance with TLSO brace on when up and about. Encouraged to perform gentle range of motion exercises while resting in bed. 7. Encourage incentive spirometer use Time with Patient: Less than 30
--- NOTE | 2024-07-24 09:33 | CT ---
Head CT without contrast. HISTORY: Code stroke. COMPARISON: 07/09/2024. TECHNIQUE: Multiple axial images were obtained from the skull base to vertex without the use of IV co ntrast material. FINDINGS: The ventricles, basal cisterns and sulci over the convexities are moderately enlarged consistent with moderate age-appropriate atrophy. There is no mass effect or shift of the midline structures. There is marked diffuse decreased density in the periventricular white matter consistent with chronic ischemic white matter demyelination. There is no acute intra or extra-axial hemorrhage. The posterior fossa including the brainstem, fourth ventricle and cerebellar pontine angles appear no rmal. Intraorbital contents appear normal and symmetric. Visualized paranasal sinuses and mastoid air cells are well aerated. The calvarium is intact. IMPRESSION: 1. There is no acute bleed or mass effect. 2. Moderate age-appropriate atrophy and marked chronic ischemic white matter demyelination. 3. No interval change compared to the prior study dated 07/09/2024 [facility], , 07/24/2024 9:30 AM
--- NOTE | 2024-07-24 10:01 | CT ---
EXAMINATION TYPE: CODE STROKE: CTA head neck DATE OF EXAM: 07/24/2024 HISTORY: Neuro deficits, code stroke COMPARISON: None CT DLP: 677.8 mGycm. Automated Exposure Control for Dose Reduction was Utilized. TECHNIQUE: CTA scan of the head and neck is performed with IV Contrast, patient injected with 65 mL of Isovue 370, axial images are obtained, coronal and sagittal reformatted images are reviewed. 3D re constructed images are created on an independent workstation and reviewed. FINDINGS: The brachiocephalic origins are widely patent and no significant stenosis. There is no significant stenosis of the common or internal carotid arteries within the neck. There is mild calcified plaque in the carotid bifurcations, right slightly greater than left. There is no stenosis of the vertebral arteries. Intracranially, there is no stenosis, segmental occlusion, sizable aneurysm sac or vascular malformat ion. IMPRESSION:. Mild calcified plaque at the carotid bifurcations but no significant stenosis of the bra chiocephalic origins, carotid arteries within the neck or intracranially. NASCET criteria was used in interpretation of this exam? [facility], Workstation: [facility] 07/24/2024 9:58 AM
[2024-07-24 11:25] LABS: Basophils # (A) 0.03 X 10*3/uL (0.00-0.10); Basophils % (A) 0.3 %; Eosinophils # (A) 0.02 X 10*3/uL (0.04-0.35); Eosinophils % (A) 0.2 %; HCT 40.3 % (39.6-50.0); HGB 12.5 g/dL (13.0-17.0); Lymphocytes # (A) 1.33 X 10*3/uL (0.90-5.00); Lymphocytes % (A) 12.7 %; Mean Platelet Volume 10.3 FL (9.5-12.2); Monocytes # (A) 0.62 X 10*3/uL (0.20-1.00); Monocytes % (A) 5.9 %; NRBC Per 100 WBC 0 X 10*3/uL (0.00-0.01); Neutrophils # (A) 8.43 X 10*3/uL (1.80-7.70); Neutrophils % (A) 80.4 %; Platelet Count 186 X 10*3/uL (140-440); RBC 4.03 X 10*6/uL (4.40-5.60); RDW 12.5 % (11.5-14.5); WBC 10.48 X 10*3/uL (4.50-10.00)
[2024-07-24 12:07] LABS: ALT 30 U/L (4-49); AST 55 U/L (17-59); African American GFR (CKD) 80 (>60 ml/min/1.73 sqM); Albumin 3.2 g/dL (3.5-5.0); Albumin/Globulin Ratio 1.1; Alkaline Phosphatase 87 U/L (38-126); Anion Gap 7 mmol/L; Blood Urea Nitrogen 21 mg/dL (9-20); Calcium 8.6 mg/dL (8.4-10.2); Carbon Dioxide 26 mmol/L (22-30); Chloride 103 mmol/L (98-107); Globulin 2.9 g/dL; Glucose 112 mg/dL (74-99); Non-African American GFR(CKD) 69 (>60 ml/min/1.73 sqM); Potassium 4.8 mmol/L (3.5-5.1); Sodium 136 mmol/L (137-145); Total Bilirubin 0.8 mg/dL (0.2-1.3); Total Protein 6.1 g/dL (6.3-8.2)
--- NOTE | 2024-07-24 12:30 | P.PN ---
Subjective Progress Note Date: 07/24/24 84-year-old male with PMH of PVD status post stent of the right common iliac vein, HTN, HLD presented to our facility as a transfer from [facility] for back and right sided hip pain. Patient reported he was walking in the parking lot and stepped up onto the curb with his left leg which is his bad leg and his leg gave out resulting in him falling backwards onto his bottom. Patient underwent evaluation at their facility. CTA chest/abdomen/pelvis was obtained showing acute T9-T10 inferior endplate AP directed extension type fracture with minimal widening at the anterior aspect to to 0.5 cm. Troponin was negative at less than 0.012. Alcohol was less than 10. CBC showed MCV of 98.9. BMP showed Cl of 109, glu 114, BUN 34.4, Cr 1.48, and GFR 48.01. Liver profile unremarkable. Coagulation profile normal findings. Magnesium 1.8. Patient was transferred to [facility] for evaluation by orthospine surgeon. Patient admitted under orthospine surgery team and we were consulted for medical management. 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 Cardiology consulted, patient is above average risk for surgical intervention, however there are no absolute contraindications for him to undergo emergent surgery at this time. Plans for T8-T11 stabilization for T9/T10 endplate fractures with Dr. Hicks on 07/08/2024. Surgery was cancelled due to his confusion and inability to obtain consent. Ammonia is < 9, B12 539, Folate 22.8, TSH 0.739, EEG showed moderate encephalopathy. Psychiatry reported that the patient does not have decision making capacity. Started on Seroquel 12.5 mg PO QHS. Case management on board for guardianship, appointed on 07/22. Patient underwent open treatment T9-10 AO type B2 fracture, T8-11 post erior stabilized fusion, T8-11 segmental instrumentation, vertebral body augmentation and screw augmentation with cement T8 and T11 with Dr. Hicks on 07/23. 10/12 Patient was seen and examined this morning. Apparently did well post operatively per RN. This morning, CODE STROKE was called. Patient was noted to be repeating the phrase "black and white". He was noted to be rigid extremities. He was refusing to answer questions or follow any commands. His BP was 105/65, HR 89. CT head was done which showed chronic ischemic white matter demyelination. CTA head and neck showed mild calcified plaque at the carotid bifurcations. His symptoms had significantly improved when re-examined with Dr Carbajal, able to have a conversation, AO x 2 and follow commands. Case discussed with Dr. Carbajal, will give Valium 5 mg IV x 1 and obtain MRI brain and EEG. CBC and CMP significant for WBC 10.48, RBC 4.03, Hg 12.5, MCV 100, Na 136, BUN 21, glu 112, alb 3.2. General: non toxic, no distress, appears at stated age Derm: warm, dry, venous stasis changes lower extremities Head: atraumatic, normocephalic, symmetric Eyes: EOMI, no lid lag, anicteric sclera Mouth: no lip lesion, mucus membranes moist Cardiovascular: S1S2 reg, no murmur Lungs: Clear to auscultation bilaterally, no rhonchi, no rales , no accessory muscle use Abd: Non distended. Non tender to palpation, + Ko Ext: no gross muscle atrophy, no edema, no contractures Neuro: Patient not cooperative. When examined for a second time, he is able to lift his hands on command and wiggle his toes. Psych: Alert, oriented x 2 Based on my assessment of this patient, this patient meets a high complexity level of care. Unresponsiveness: CODE STROKE 07/24. Possibly delirium worsened with acute pain. Rule out CVA or seizure. CT brain and CTA head and neck no acute findings. Plans for Valium 5 mg IV x 1. MRI brain and EEG ordered. Delirium: Psychiatry consulted patient does not have decision making capacity. Window side bed. Avoid sedative medications. Frequent re-direction if needed. B12, TSH, Folate, Ammonia, EEG wnl. Seroquel 12.5 mg PO QHS. Haldol IM PRN for agitation. Neurology and Psychiatry on board. Urinary retention: ~ 300 cc per RN. Successful insertion of Ko catheter by Urology on 07/09. Preoperative Clearance: METS > 4. Cardiology consulted, intermediate risk to undergo surgery due to his comorbidities and overall poor functional capacity however no absolute contraindications. NSQIP surgical risk calculator, he is at an above average risk of 5.6% with average risk of 3.9% for serious complications, above average risk for cardiac complication at 0.7% with average risk being 0.2% and above average risk of at 0.6% with average risk being 0.2%. Cardiology consulted, intermediate risk to undergo surgery due to his cormorbidities and overall poor functional capacity however no absolute contraindications. T9 and T10 endplate fracture status post mechanical fall status post T8-T11 stabilization for T9/T10 endplate fractures with Dr. Hicks on 07/23 PVD status post stent of right common iliac vein Hypertension: Lisinopril 2.5 mg PO QD. Hyperlipidemia: Lipitor 20 mg PO QHS. BPH: Flomax 0.4 mg PO QHS. CODE STATUS: FULL CODE. DVT Prophylaxis: SCDs. GI Prophylaxis: Designated medical POA if patient is not able to make medical decisions for themselves: Guardian I have reviewed the following marine engineering consultant notes: Ortho. I have reviewed the results of the following tests: CT brain, CTA head and neck. I have ordered the following tests: EEG. MRI brain ordered. I have discussed the care of this patient with the following independent historian: DANNIELLE. I have independently interpreted the following test below: I have discussed the management of this patient with the following physician: Dr. Carbajal. Objective - Vital Signs Vital signs: Vital Signs Temp 98.4 F 07/24/24 07:39 Pulse 89 07/24/24 09:45 Resp 16 07/24/24 09:45 BP 105/65 07/24/24 09:45 Pulse Ox 96 07/24/24 09:45 FiO2 Intake & Output 07/23/24 07/24/24 07/24/24 18:59 06:59 18:59 Intake Total 2600 Output Total 375 325 Balance 2225 -325 Intake: IV 2600 Output: Urine 300 325 Estimated Blood Loss 75 Other: Voiding Method Indwelling Catheter Indwelling Catheter Indwelling Catheter - Labs CBC & Chem 7: 07/24/24 03:21 07/24/24 11:18 Labs: Abnormal Lab Results - Last 24 Hours (Table) 10/12/24 10/12/24 Range/Units 03:21 11:18 WBC 10.48 H (4.50-10.00) X 10*3/uL RBC 4.03 L (4.40-5.60) X 10*6/uL Hgb 12.5 L (13.0-17.0) g/dL MCV 100.0 H (80.0-97.0) FL MCHC 31.0 L (32.0-37.0) g/dL Immature Gran # 0.05 H (0.00-0.04) X 10*3/uL Neutrophils # 8.43 H (1.80-7.70) X 10*3/uL Eosinophils # 0.02 L (0.04-0.35) X 10*3/uL Sodium 136 L (137-145) mmol/L BUN 21 H (9-20) mg/dL Glucose 112 H (74-99) mg/dL Total Protein 6.1 L (6.3-8.2) g/dL Albumin 3.2 L (3.5-5.0) g/dL
[2024-07-24] MEDS: LORazepam 2 MG/ML INJ IV STA (13:58)
--- NOTE | 2024-07-24 15:20 | MR ---
EXAMINATION TYPE: MR brain wo/w con DATE OF EXAM: 07/24/2024 COMPARISON: CT brain 07/24/2024 HISTORY: Posturing CONTRAST: Performed utilizing 10.5 mL intravenous Gadavist gadolinium contrast. TECHNIQUE: Multiplanar, multiecho imaging on a 3.0 Angelika magnet is performed through the brain. Stud y is performed within 24 hours of arrival to the hospital. The craniovertebral junction is normal. The pituitary is normal. Susceptibility artifact is present on the right temporal region Diffusion-weighted imaging is performed. No abnormal hyperintensity is present to suggest an acute i ntracranial infarct or acute ischemic change. There are confluent white matter changes in the periventricular white matter. This extends through th e centrum semiovale bilaterally. Small amount of white matter change may be within the left brainstem . Some subcortical white matter changes are within the more inferior cerebrum. No suspicious enhancement evident. Ventricles and sulci are appropriate for the patient age. There are some mild mucosal thickening within the sphenoid sinuses and anterior ethmoid air cells. IMPRESSION: 1. Extensive confluent periventricular and deep white matter ischemic type changes. 2. No suspicious acute changes identified. [facility], Workstation: [facility], 07/24/2024 3:18 PM
--- NOTE | 2024-07-24 15:39 | P.PN ---
Subjective Progress Note Date: 07/24/24 I was notified by the nurse that the patient had episode of severe confusion and had extensor posturing of upper extremity and the episode lasted for 2 hours as a result a code stroke was activated. CT of the head is unremarkable for any acute process. It seems to the ED the patient was doing well yesterday after surgery but all of a sudden today he had an episode like this. Objective - Vital Signs Vital signs: Vital Signs Temp 98.4 F 07/24/24 07:39 Pulse 89 07/24/24 09:45 Resp 16 07/24/24 09:45 BP 105/65 07/24/24 09:45 Pulse Ox 96 07/24/24 09:45 FiO2 Intake & Output 07/23/24 07/24/24 07/24/24 18:59 06:59 18:59 Intake Total 2600 Output Total 375 325 Balance 2225 -325 Intake: IV 2600 Output: Urine 300 325 Estimated Blood Loss 75 Other: Voiding Method Indwelling Catheter Indwelling Catheter Indwelling Catheter - Exam General: Lying in bed and is not in acute distress. Neuro: Limited Initially upon seeing him patient stated that he could not see but then upon being on his right side he was able to tell me the numbers are showing him. He was talking sporadically and he followed very few simple commands intermittently in which she showed me a thumbs up wiggled his toes but a little later when I examined the patient with the primary team he was not following commands. He did not have any jerking of any extremities no foaming around the mouth no facial weakness. Upon attempting to bend his elbows I was able but then he was in pain. Within 30 minutes, he was completely doing well and he was oriented to self place and he correctly stated the current year to the nurses aide. He was also having normal conversation with the nurses aide he was able to lift extremity above gravity equally but was limited because of pain and was wiggling his toes. - Labs CBC & Chem 7: 07/24/24 03:21 07/24/24 11:18 Labs: Abnormal Lab Results - Last 24 Hours (Table) 07/24/24 07/24/24 Range/Units 03:21 11:18 WBC 10.48 H (4.50-10.00) X 10*3/uL RBC 4.03 L (4.40-5.60) X 10*6/uL Hgb 12.5 L (13.0-17.0) g/dL MCV 100.0 H (80.0-97.0) FL MCHC 31.0 L (32.0-37.0) g/dL Immature Gran # 0.05 H (0.00-0.04) X 10*3/uL Neutrophils # 8.43 H (1.80-7.70) X 10*3/uL Eosinophils # 0.02 L (0.04-0.35) X 10*3/uL Sodium 136 L (137-145) mmol/L BUN 21 H (9-20) mg/dL Glucose 112 H (74-99) mg/dL Total Protein 6.1 L (6.3-8.2) g/dL Albumin 3.2 L (3.5-5.0) g/dL Assessment and Plan Assessment: This is an 84-year-old gentleman who was transferred from outside hospital on 07/06/2024 for a fall in which his foot got stuck in a curb that resulted in a fall and he had imaging at the outpatient facility and it showed T9-T10 acute fracture. During this hospital visit patient is having fluctuation in mentation Episode of confusion and extensor posturing per nurse earlier today and repeat CT head is negative. Unsure if he possible seizure-like activity--currently back to baseline Delirium likely hospital induced and his medication. CT of the head is unremarkable for any acute or subacute process. EEG is moderate encephalopathy but no discharges or seizure Acute T9-T10 fracture. History of peripheral vascular disease status post stenting Hypertension Hyperlipidemia Plan: Today a code stroke was activated and the patient had CT of the head was unremarkable for any acute or subacute process EEG is ordered by the primary team. Patient was given Valium 5 mg once. I started the patient empirically on Keppra [address] angiography is reported as mild calcified plaque at the carotid bifurcation but no significant stenosis of the brachiocephalic origin, carotid artery within the neck or intracranially. Psychiatry has seen the patient, diagnosed with neurocognitive deficit, seconda ry to systemic causesresolving. Patient is not able to make reasonable medical decision currently. He is on Seroquel 12.5mg qhs by primary team and that can be increased to Possible avoid antipsychotic because of his episode today. If possible try to limit opiates/sedatives. Patient has not received Dilaudid or [place] since 07/08/2024. Patient has a public guardian. Patient mentation is improving since two weeks seeing him but still has confusion. He is schedule for surgery tomorrow by Orthopedic team. Will defer the rest of the medical management to primary and other specialist The plan is discussed with his nurse. Time with Patient: Less than 30
[2024-07-24] MEDS: KETOROLAC 15 MG/ML 1 ML VIAL IVP SCH (16:26)
[2024-07-24] MEDS: HYDROcodone/APAP 10-325MG 1 EACH TAB PO PRN (21:07)
[2024-07-24] MEDS: levETIRAcetam 500 MG TAB PO SCH (21:07)
--- NOTE | 2024-07-24 21:28 | P.PN ---
Progress Note - Text Progress Note Date: 07/24/24 (Delayed charting attempted to see around 2 pm) Attempted to see today around 2 pm. Had been in communication with nursing regarding his condition and possible issues. He was good yesterday after surgery but today had episodes of non lucency, what sounded like per report posturing and neurology was able to assess him promptly and appropriate tests were ordered and he was evaluated. Upon my evaluation he was in MRI. We will continue to follow up on him and nursing is keeping me updated on his status. He seems to be getting better as the day goes on.
[2024-07-25] MEDS: MORPHINE SULFATE 4 MG/ML SYRINGE IVP PRN (00:09)
[2024-07-25 06:49] LABS: Glucose,Whole Blood 126 mg/dL (70-110)
--- NOTE | 2024-07-25 11:01 | P.PN ---
Subjective Progress Note Date: 07/25/24 84-year-old male with PMH of PVD status post stent of the right common iliac vein, HTN, HLD presented to our facility as a transfer from [facility] for back and right sided hip pain. Patient reported he was walking in the parking lot and stepped up onto the curb with his left leg which is his bad leg and his leg gave out resulting in him falling backwards onto his bottom. Patient underwent evaluation at their facility. CTA chest/abdomen/pelvis was obtained showing acute T9-T10 inferior endplate AP directed extension type fracture with minimal widening at the anterior aspect to to 0.5 cm. Troponin was negative at less than 0.012. Alcohol was less than 10. CBC showed MCV of 98.9. BMP showed Cl of 109, glu 114, BUN 34.4, Cr 1.48, and GFR 48.01. Liver profile unremarkable. Coagulation profile normal findings. Magnesium 1.8. Patient was transferred to [facility] for evaluation by orthospine surgeon. Patient admitted under orthospine surgery team and we were consulted for medical management. 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 Cardiology consulted, patient is above average risk for surgical intervention, however there are no absolute contraindications for him to undergo emergent surgery at this time. Plans for T8-T11 stabilization for T9/T10 endplate fractures with Dr. Hicks on 07/08/2024. Surgery was cancelled due to his confusion and inability to obtain consent. Ammonia is < 9, B12 539, Folate 22.8, TSH 0.739, EEG showed moderate encephalopathy. Psychiatry reported that the patient does not have decision making capacity. Started on Seroquel 12.5 mg PO QHS. Case management on board for guardianship, appointed on 07/22. Patient underwent open treatment T9-10 AO type B2 fracture, T8-11 post erior stabilized fusion, T8-11 segmental instrumentation, vertebral body augmentation and screw augmentation with cement T8 and T11 with Dr. Hicks on 07/23. CODE STROKE called on 07/24 for repetitive phrases, rigidity of the extremities. CT head was done which showed chronic ischemic white matter demyelination. CTA head and neck showed mild calcified plaque at the carotid bifurcations. MRI brain negative for acute CVA. Dr. Carbajal started the patient on Keppra and EEG is ordered and pending. 07/24 Patient was seen and examined this morning. Doing much better. Answering questions appropriately. General: non toxic, no distress, appears at stated age Derm: warm, dry, venous stasis changes lower extremities Head: atraumatic, normocephalic, symmetric Eyes: EOMI, no lid lag, anicteric sclera Mouth: no lip lesion, mucus membranes moist Cardiovascular: S1S2 reg, no murmur Lungs: Clear to auscultation bilaterally, no rhonchi, no rales , no accessory muscle use Abd: Non distended. Non tender to palpation, + Ko Ext: no gross muscle atrophy, no edema, no contractures Neuro: No focal neurologic deficits Psych: Alert, oriented x 2 Based on my assessment of this patient, this patient meets a high complexity level of care. Unresponsiveness: CODE STROKE 07/24. Possibly delirium worsened with acute pain. Rule out CVA or seizure. CT brain, MRI brain and CTA head and neck no acute findings. Started on Keppra 500 mg PO BID. EEG ordered. Neurology on board. Delirium: Psychiatry consulted patient does not have decision making capacity. Window side bed. Avoid sedative medications. Frequent re-direction if needed. B12, TSH, Folate, Ammonia, EEG wnl. Seroquel 12.5 mg PO QHS. Haldol IM PRN for agitation. Neurology and Psychiatry on board. Urinary retention: ~ 300 cc per RN. Successful insertion of Ko catheter by Urology on 07/09. Preoperative Clearance: METS > 4. Cardiology consulted, intermediate risk to undergo surgery due to his comorbidities and overall poor functional capacity however no absolute contraindications. NSQIP surgical risk calculator, he is at an above average risk of 5.6% with average risk of 3.9% for serious complications, above average risk for cardiac complication at 0.7% with average risk being 0.2% and above average risk of at 0.6% with average risk being 0.2%. Cardiology consulted, intermediate risk to undergo surgery due to his cormorbidities and overall poor functional capacity however no absolute contraindications. T9 and T10 endplate fracture status post mechanical fall status post T8-T11 stabilization for T9/T10 endplate fractures with Dr. Hicks on 07/23 PVD status post stent of right common iliac vein Hypertension: Lisinopril 2.5 mg PO QD. Hyperlipidemia: Lipitor 20 mg PO QHS. BPH: Flomax 0.4 mg PO QHS. CODE STATUS: FULL CODE. DVT Prophylaxis: SCDs. GI Prophylaxis: Designated medical POA if patient is not able to make medical decisions for themselves: Guardian I have reviewed the following surgical consultant notes: Ortho. Neurology. I have reviewed the results of the following tests: MRI brain. I have ordered the following tests: EEG pending. I have discussed the care of this patient with the following independent histori an: I have independently interpreted the following test below: I have discussed the management of this patient with the following physician: Dr. Carbajal. Objective - Vital Signs Vital signs: Vital Signs Temp 98.1 F 07/25/24 06:57 Pulse 70 07/25/24 06:57 Resp 17 07/25/24 06:57 BP 95/55 07/25/24 06:57 Pulse Ox 95 07/25/24 08:45 FiO2 Intake & Output 07/24/24 07/25/24 07/25/24 18:59 06:59 18:59 Output Total 800 150 Balance -800 -150 Output: Urine 800 150 Other: Voiding Method Indwelling Catheter Indwelling Catheter Indwelling Catheter - Labs CBC & Chem 7: 07/24/24 03:21 07/24/24 11:18 Labs: Abnormal Lab Results - Last 24 Hours (Table) 07/24/24 07/24/24 07/25/24 Range/Units 03:21 11:18 06:45 WBC 10.48 H (4.50-10.00) X 10*3/uL RBC 4.03 L (4.40-5.60) X 10*6/uL Hgb 12.5 L (13.0-17.0) g/dL MCV 100.0 H (80.0-97.0) FL MCHC 31.0 L (32.0-37.0) g/dL Immature Gran # 0.05 H (0.00-0.04) X 10*3/uL Neutrophils # 8.43 H (1.80-7.70) X 10*3/uL Eosinophils # 0.02 L (0.04-0.35) X 10*3/uL Sodium 136 L (137-145) mmol/L BUN 21 H (9-20) mg/dL Glucose 112 H (74-99) mg/dL POC Glucose (mg/dL) 126 H (70-110) mg/dL Total Protein 6.1 L (6.3-8.2) g/dL Albumin 3.2 L (3.5-5.0) g/dL
--- NOTE | 2024-07-25 13:36 | P.PN ---
Subjective Progress Note Date: 07/25/24 I am following-up with patient and per nurse he has been not confused and been appropriate for her. No further posturing. Objective - Vital Signs Vital signs: Vital Signs Temp 98.1 F 07/25/24 06:57 Pulse 70 07/25/24 06:57 Resp 17 07/25/24 06:57 BP 95/55 07/25/24 06:57 Pulse Ox 95 07/25/24 08:45 FiO2 Intake & Output 07/24/24 07/25/24 07/25/24 18:59 06:59 18:59 Output Total 800 150 Balance -800 -150 Output: Urine 800 150 Other: Voiding Method Indwelling Catheter Indwelling Catheter Indwelling Catheter - Exam General: Lying in bed and is not in acute distress. Neuro: Patient was sleeping but he was awake able to voice. He is oriented to self he still is in the hospital. On initial attempt he stated the year is 1923 then on repeat is a 2023. He is following simple commands. No aphasia. No facial weakness. No dysarthria. Motor is somewhat limited but lifting uppers above gravity. - Labs CBC & Chem 7: 07/24/24 03:21 07/24/24 11:18 Labs: Abnormal Lab Results - Last 24 Hours (Table) 07/25/24 Range/Units 06:45 POC Glucose (mg/dL) 126 H (70-110) mg/dL Assessment and Plan Assessment: This is an 84-year-old gentleman who was transferred from outside hospital on 07/06/2024 for a fall in which his foot got stuck in a curb that resulted in a fall and he had imaging at the outpatient facility and it showed T9-T10 acute fracture. During this hospital visit patient is having fluctuation in mentation Episode of confusion and extensor posturing per nurse earlier yesterday and repeat CT head is negative. Unsure if he possible seizure-like activity--currently back to baseline. MRI Brain is negative for acute process. Delirium likely hospital induced and his medication. CT of the head is unre markable for any acute or subacute process. EEG is moderate encephalopathy but no discharges or seizure Acute T9-T10 fracture. History of peripheral vascular disease status post stenting Hypertension Hyperlipidemia Plan: EEG is pending. Patient was given Valium 5 mg once yesterday. I started the patient empirically on Keppra 500 mg twice daily empirically for concern of seizure on 07/24/2024 and he tolerating medication and no further episode of confusion or posturing. CT angiography is reported as mild calcified plaque at the carotid bifurcation but no significant stenosis of the brachiocephalic origin, carotid artery within the neck or intracranially. MRI of the brain is reported as extensive confluent periventricular and deep white matter ischemic type changes. No suspicious acute changes identified. Psychiatry has seen the patient, diagnosed with neurocognitive deficit, secondary to systemic causesresolving. Patient is not able to make reasonable medical decision currently. He is on Seroquel 12.5mg qhs by primary team and that can be increased to Possible avoid antipsychotic because of his episode today. If possible try to limit opiates/sedatives. Patient has not received Dilaudid or [place] since 07/08/2024. Patient has a public guardian. Patient mentation is improving since two weeks seeing him but still has confusion. He is schedule for surgery tomorrow by Orthopedic team. Will defer the rest of the medical management to primary and other specialist The plan is discussed with his nurse and primary attending. Dr. Negrete will resume neurology service tomorrow A.M. Time with Patient: Less than 30
--- NOTE | 2024-07-25 14:44 | P.PN ---
Subjective Progress Note Date: 07/25/24 Principal diagnosis: Ankylosis of thoracic spine (Acute) Fracture of body of posterior thoracic vertebra (Acute) Closed fracture of thoracic vertebral body (Acute) Thoracic spine fracture (Acute) Encephalopathy (Acute) Fall (Acute) Patient was seen at bedside this morning lying in semirecumbent position. Patient says he is looking forward to working with therapy later this morning. He says he does have a fair amount of pain to the back at this time. Ko catheter is currently in place. SCDs and DONNA hose are present on bilateral lower extremities. Patient says he does have a cracked tooth which she has been dealing with for a while and did have an appointment scheduled to see his dentist on [facility]. Patient does complain of some oral pain. Patient denies any other significant issues at this time. Objective - Vital Signs Vital signs: Vital Signs Temp 98.1 F 07/25/24 06:57 Pulse 70 07/25/24 06:57 Resp 17 07/25/24 06:57 BP 95/55 07/25/24 06:57 Pulse Ox 95 07/25/24 08:45 FiO2 Intake & Output 07/24/24 07/25/24 07/25/24 18:59 06:59 18:59 Output Total 800 150 Balance -800 -150 Output: Urine 800 150 Other: Voiding Method Indwelling Catheter Indwelling Catheter Indwelling Catheter - Exam Inspection: Negative for any open fracture, significant erythema/ecchymosis/open wounds. Incision appears to be clean, dry, intact. Negative for any active drainage. Elizabet appear to be well aligned and intact. Sensation: Equal, symmetric, bilateral intact throughout the upper and lower extremities on exam Palpation: moderate TTP diffusely throughout spine near incision. Nontender to palpation throughout rest of exam. Range of motion: Patient does have good range of motion throughout bilateral upper extremities on exam. Patient has good range of motion throughout right lower extremity on exam. There is limited range of motion throughout left lower extremity and hip flexors extension left knee flexion and extension and dorsi/plantarflexion of the left ankle secondary to referred pain to the low back as well as weakness in the leg. Motor: 4/5 in all major motor groups in the right lower extremity. 4-/5 in all major motor groups in left lower extremity. Neurovascular: Radial pulse intact, 2+ bilaterally. Cap refill under 3 seconds in digits of upper extremities Special test: Negative Mendel bilaterally. Negative clonus bilaterally. Negative Marcy bilaterally. - Labs CBC & Chem 7: 07/24/24 03:21 07/24/24 11:18 Labs: Abnormal Lab Results - Last 24 Hours (Table) 07/25/24 Range/Units 06:45 POC Glucose (mg/dL) 126 H (70-110) mg/dL Assessment and Plan Assessment: Ankylosis of thoracic spine (Acute) Fracture of body of posterior thoracic vertebra (Acute) Closed fracture of thoracic vertebral body (Acute) Thoracic spine fracture (Acute) Encephalopathy (Acute) Fall (Acute) Postop day 2 status post: OPEN TREATMENT T9-10 AO TYPE B2 FRACTURE, UNSTABLE THROUGH AN ANKYLOSED SPINE T8-T11 POSTERIOR STABILIZED FUSION Plan: 1. Mid back pain; low back pain; T9/T10 endplate fractures; ankylosis of the thoracic spine -surgery performed 07/23/24open treatment T9-10 AO type B2 fracture, unstable through an ankylosed spine and T8-T11 posterior stabilized fusion -patient stable bedside this morning with dressing in place over thoracic spine. Maintain dressings clean, dry. Patient may weight-bear as tolerated with walker and TLSO brace on while up and about with therapy. Pain medication as needed. Appreciate other specialty recommendations. Continue Lovenox daily for DVT prophylaxis. We will continue to follow patient during stay in hospital. 2. Appreciate medical, cardio and neurology management 3. Pain management - norco; flexeril; Tylenol 4. DVT prophylaxis -Lovenox; SCDs and DONNA hose 5. GI prophylaxis - senna; milk of magnesia 6. PT/OT -TLSO brace at bedside. Patient may weight-bear as tolerated with walker and assistance with TLSO brace on when up and about. Encouraged to perform gentle range of motion exercises while resting in bed. 7. Encourage incentive spirometer use Time with Patient: Less than 30
[2024-07-26] MEDS: guaiFENesin 600 MG TABLET.ER PO SCH (00:48)
[2024-07-26 06:46] LABS: Glucose,Whole Blood 100 mg/dL (70-110)
[2024-07-26 08:33] VITALS: TEMP 98.2
--- NOTE | 2024-07-26 09:40 | P.PN ---
Subjective Progress Note Date: 07/26/24 Principal diagnosis: Ankylosis of thoracic spine (Acute) Fracture of body of posterior thoracic vertebra (Acute) Closed fracture of thoracic vertebral body (Acute) Thoracic spine fracture (Acute) Encephalopathy (Acute) Fall (Acute) Patient was seen at bedside this morning lying in semirecumbent position. Patient says he is looking forward to working with therapy later this morning. He says he does have a fair amount of pain to the back at this time. Ko catheter is currently in place. SCDs and DONNA hose are present on bilateral lower extremities. Patient says he does have a cracked tooth which she has been dealing with for a while and did have an appointment scheduled to see his dentist on [facility]. Patient does complain of some oral pain. Patient denies any other significant issues at this time. Objective - Vital Signs Vital signs: Vital Signs Temp 98.2 F 07/26/24 07:18 Pulse 59 L 07/26/24 07:18 Resp 19 07/26/24 07:18 BP 103/60 07/26/24 07:18 Pulse Ox 98 07/26/24 07:18 FiO2 Intake & Output 07/25/24 07/26/24 07/26/24 18:59 06:59 18:59 Output Total 200 250 Balance -200 -250 Output: Urine 200 250 Other: Voiding Method Indwelling Catheter Indwelling Catheter - Exam Inspection: Negative for any open fracture, significant erythema/ecchymosis/open wounds. Incision appears to be clean, dry, intact. Negative for any active drainage. Elizabet appear to be well aligned and intact. Sensation: Equal, symmetric, bilateral intact throughout the upper and lower extremities on exam Palpation: moderate TTP diffusely throughout spine near incision. Nontender to palpation throughout rest of exam. Range of motion: Patient does have good range of motion throughout bilateral upper extremities on exam. Patient has good range of motion throughout right lower extremity on exam. There is limited range of motion throughout left lower extremity and hip flexors extension left knee flexion and extension and dorsi/plantarflexion of the left ankle secondary to referred pain to the low back as well as weakness in the leg. Motor: 4/5 in all major motor groups in the right lower extremity. 4-/5 in all major motor groups in left lower extremity. Neurovascular: Radial pulse intact, 2+ bilaterally. Cap refill under 3 seconds in digits of upper extremities Special test: Negative Mendel bilaterally. Negative clonus bilaterally. Negative Marcy bilaterally. - Labs CBC & Chem 7: 07/24/24 03:21 07/24/24 11:18 Assessment and Plan Assessment: Ankylosis of thoracic spine (Acute) Fracture of body of posterior thoracic vertebra (Acute) Closed fracture of thoracic vertebral body (Acute) Thoracic spine fracture (Acute) Encephalopathy (Acute) Fall (Acute) Postop day 3 status post: OPEN TREATMENT T9-10 AO TYPE B2 FRACTURE, UNSTABLE THROUGH AN ANKYLOSED SPINE T8-T11 POSTERIOR STABILIZED FUSION Plan: 1. Mid back pain; low back pain; T9/T10 endplate fractures; ankylosis of the thoracic spine -surgery performed 07/23/24open treatment T9-10 AO type B2 fracture, unstable through an ankylosed spine and T8-T11 posterior stabilized fusion -patient stable bedside this morning with dressing in place over thoracic spine. Maintain dressings clean, dry. Patient may weight-bear as tolerated with walker and TLSO brace on while up and about with therapy. Pain medication as needed. Appreciate other specialty recommendations. Continue Lovenox daily for DVT prophylaxis. We will continue to follow patient during stay in hospital. 2. Appreciate medical, cardio and neurology management 3. Pain management - norco; flexeril; Tylenol 4. DVT prophylaxis -Lovenox; SCDs and DONNA hose 5. GI prophylaxis - senna; milk of magnesia 6. PT/OT -TLSO brace at bedside. Patient may weight-bear as tolerated with walker and assistance with TLSO brace on when up and about. Encouraged to perform gentle range of motion exercises while resting in bed. 7. Encourage incentive spirometer use Time with Patient: Less than 30
--- NOTE | 2024-07-26 12:44 | P.PN ---
Subjective Progress Note Date: 07/26/24 84-year-old male with PMH of PVD status post stent of the right common iliac vein, HTN, HLD presented as a transfer from [facility] for back and right sided hip pain. Patient reported he was walking in the parking lot and stepped up onto the curb with his left leg which is his bad leg and his leg gave out resulting in him falling backwards onto his bottom. Patient underwent evaluation at their facility. CTA chest/abdomen/pelvis was obtained showing acute T9-T10 inferior endplate AP directed extension type fracture with minimal widening at the anterior aspect to to 0.5 cm. Troponin was negative at less than 0.012. Alcohol was less than 10. CBC showed MCV of 98.9. BMP showed Cl of 109, glu 114, BUN 34.4, Cr 1.48, and GFR 48.01. Liver profile and Coag panel unremarkable. Magnesium 1.8. Patient was transferred to [facility] for evaluation by orthospine surgeon. 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 Cardiology consulted, patient is above average risk for surgical intervention, however there are no absolute contraindications for him to undergo emergent surgery at this time. Initial plans for T8-T11 stabilization for T9/T10 endplate fractures with Dr. Hicks on 07/08/2024. Surgery was cancelled due to his confusion and inability to obtain consent. Altered mentation thought to be related to delirium. Ammonia is < 9, B12 539, Folate 22.8, TSH 0.739, EEG showed moderate encephalopathy. Psychiatry reported that the patient does not have decision making capacity. Started on Seroquel 12.5 mg PO QHS. Case management consulted, guardianship appointed on 07/22. Patient underwent open treatment T9-10 AO type B2 fracture, T8-11 posterior stabilized fusion, T8-11 segmental instrumentation, vertebral body augmentation and screw augmentation with cement T8 and T11 with Dr. Hicks on 07/23. CODE STROKE called on 07/24 for repetitive phrases, rigidity of the extremities. CT head was done which showed chronic ischemic white matter demyelination. CTA head and neck showed mild calcified plaque at the carotid bifurcations. MRI brain negative for acute CVA. Dr. Carbajal started the patient on Keppra and EEG is ordered and pending. 07/26 Patient was seen and examined this morning. Doing much better. Answering questions appropriately. CMP significant for Na 136, BUN 21, glu 112, alb 3.2. Case management on board for SNF. General: non toxic, no distress, appears at stated age Derm: warm, dry, venous stasis changes lower extremities Head: atraumatic, normocephalic, symmetric Eyes: EOMI, no lid lag, anicteric sclera Mouth: no lip lesion, mucus membranes moist Cardiovascular: S1S2 reg, no murmur Lungs: Clear to auscultation bilaterally, no rhonchi, no rales , no accessory muscle use Abd: Non distended. Non tender to palpation, + Ko Ext: no gross muscle atrophy, no edema, no contractures Neuro: No focal neurologic deficits Psych: Alert, oriented x 2 Based on my assessment of this patient, this patient meets a high complexity level of care. Unresponsiveness: CODE STROKE 07/24. Possibly delirium worsened with acute pain. Rule out CVA or seizure. CT brain, MRI brain and CTA head and neck no acute findings. Started on Keppra 500 mg PO BID. EEG ordered. Neurology on board. Delirium: Psychiatry consulted patient does not have decision making capacity. Window side bed. Avoid sedative medications. Frequent re-direction if needed. B12, TSH, Folate, Ammonia, EEG wnl. Seroquel 12.5 mg PO QHS. Haldol IM PRN for agitation. Neurology and Psychiatry on board. Urinary retention: ~ 300 cc per RN. Successful insertion of Ko catheter by Urology on 07/09. Preoperative Clearance: METS > 4. Cardiology consulted, intermediate risk to undergo surgery due to his comorbidities and overall poor functional capacity however no absolute contraindications. NSQIP surgical risk calculator, he is at an above average risk of 5.6% with average risk of 3.9% for serious complications, above average risk for cardiac complication at 0.7% with average risk being 0.2% and above average risk of at 0.6% with average risk being 0.2%. Cardiology consulted, intermediate risk to undergo surgery due to his cormorbidities and overall poor functional capacity however no absolute contraindications. T9 and T10 endplate fracture status post mechanical fall status post T8-T11 stabilization for T9/T10 endplate fractures with Dr. Hicks on 07/23 PVD status post stent of right common iliac vein Hypertension: Lisinopril 2.5 mg PO QD. Hyperlipidemia: Lipitor 20 mg PO QHS. BPH: Flomax 0.4 mg PO QHS. CODE STATUS: FULL CODE. DVT Prophylaxis: SCDs. GI Prophylaxis: Designated medical POA if patient is not able to make medical decisions for themselves: Guardian Dispo: PT and OT on board. Pending SNF. I have reviewed the following specialty sales consultant notes: Ortho. I have reviewed the results of the following tests: CMP. I have ordered the following tests: EEG pending. I have discussed the care of this patient with the following independent historian: I have independently interpreted the following test below: I have discussed the management of this patient with the following physician: Objective - Vital Signs Vital signs: Vital Signs Temp 98.0 F 07/26/24 00:48 Pulse 63 07/26/24 00:48 Resp 15 07/26/24 00:48 BP 96/56 07/26/24 00:48 Pulse Ox 99 07/26/24 00:48 FiO2 Intake & Output 07/25/24 07/26/24 07/26/24 18:59 06:59 18:59 Output Total 200 250 Balance -200 -250 Output: Urine 200 250 Other: Voiding Method Indwelling Catheter Indwelling Catheter - Labs CBC & Chem 7: 07/24/24 03:21 07/24/24 11:18
[2024-07-26 14:18] VITALS: BP 111/68; PULSE 70; RESP 17
--- NOTE | 2024-07-26 14:23 | P.DS ---
Providers Date of admission: 07/06/24 06:04 Expected date of discharge: 07/26/24 Attending physician: Jp Kruger Consults: 07/06/24 06:03 Consult Physician Routine Consulting Provider: Franco Hicks Consult Reason/Comments: Medical management Do you want consulting provider notified?: Yes 07/08/24 18:58 Consult Physician Urgent Consulting Provider: Lawrence Carbajal Consult Reason/Comments: new onset confusion, unable to consent for surgery Do you want consulting provider notified?: Yes 07/09/24 10:33 Consult Physician Urgent Consulting Provider: Srinivasa Barajas Consult Reason/Comments: decision making capacity Do you want consulting provider notified?: Yes 07/09/24 12:11 Consult Physician Urgent Consulting Provider: Jayden Jensen Consult Reason/Comments: retention and unable to insert swan cath Do you want consulting provider notified?: Yes 07/21/24 14:48 Consult Physician Urgent Consulting Provider: Franco Hicks Consult Reason/Comments: ortho surgery, guardian appointed today 07/21/24 Do you want consulting provider notified?: Yes Primary care physician: [facility] Course: 84-year-old male with PMH of PVD status post stent of the right common iliac vein, HTN, HLD presented as a transfer from [facility] for back and right sided hip pain. Patient reported he was walking in the parking lot and stepped up onto the curb with his left leg which is his bad leg and his leg gave out resulting in him falling backwards onto his bottom. Patient underwent evaluation at their facility. CTA chest/abdomen/pelvis was obtained showing acute T9-T10 inferior endplate AP directed extension type fracture with minimal widening at the anterior aspect to to 0.5 cm. Troponin was negative at less than 0.012. Alcohol was less than 10. CBC showed MCV of 98.9. BMP showed Cl of 109, glu 114, BUN 34.4, Cr 1.48, and GFR 48.01. Liver profile and Coag panel unremarkable. Magnesium 1.8. Patient was transferred to [facility] for evaluation by orthospine surgeon. 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 Cardiology consulted, patient is above average risk for surgical intervention, however there are no absolute contraindications for him to undergo emergent surgery at this time. Initial plans for T8-T11 stabilization for T9/T10 endplate fractures with Dr. Hicks on 07/08/2024. Surgery was cancelled due to his confusion and inability to obtain consent. Altered mentat ion thought to be related to delirium. Ammonia is < 9, B12 539, Folate 22.8, TSH 0.739, EEG showed moderate encephalopathy. Psychiatry reported that the patient does not have decision making capacity. Started on Seroquel 12.5 mg PO QHS. Case management consulted, guardianship appointed on 07/22. Patient underwent open treatment T9-10 AO type B2 fracture, T8-11 posterior stabilized fusion, T8-11 segmental instrumentation, vertebral body augmentation and screw augmentation with cement T8 and T11 with Dr. Hicks on 07/23. CODE STROKE called on 07/24 for repetitive phrases, rigidity of the extremities. CT head was done which showed chronic ischemic white matter demyelination. CTA head and neck showed mild calcified plaque at the carotid bifurcations. MRI brain negative for acute CVA. Dr. Carbajal started the patient on Keppra. 07/26 Patient was seen and examined this morning. Doing much better. Answering questions appropriately. CMP significant for Na 136, BUN 21, glu 112, alb 3.2. C ase management on board for SNF. Discharge Plans: Plans for discharge to SNF today. Will continue Keppra as it seems to be working with outpatient Neurology follow up. His agitation has improved since starting Keppra, will discontinue Seroquel. Pain management with Flexeril PRN, Tylenol PRN, [place] PRN with bowel regimen. Started pm Flomax, plans to discharge with Swan, attempt voiding trail at SNF. Follow up with PCP within 1-2 days of discharge. Follow up with Urology within 1 week of discharge. Follow up with Dr. Hicks within 2 weeks of discharge. Follow up with Neurology within 1 week of discharge. General: non toxic, no distress, appears at stated age Derm: warm, dry, venous stasis changes lower extremities Head: atraumatic, normocephalic, symmetric Eyes: EOMI, no lid lag, anicteric sclera Mouth: no lip lesion, mucus membranes moist Cardiovascular: S1S2 reg, no murmur Lungs: Clear to auscultation bilaterally, no rhonchi, no rales , no accessory muscle use Abd: Non distended. Non tender to palpation, + Swan Ext: no gross muscle atrophy, no edema, no contractures Neuro: No focal neurologic deficits Psych: Alert, oriented x 2 Based on my assessment of this patient, this patient meets a high complexity level of care. Unresponsiveness: CODE STROKE 07/24. Possibly delirium worsened with acute pain. Rule out CVA or seizure. CT brain, MRI brain and CTA head and neck no acute findings. Started on Keppra 500 mg PO BID. Outpatient Neurology follow up. Delirium: Psychiatry consulted patient does not have decision making capacity. Window side bed. Avoid sedative medications. Frequent re-direction if needed. B12, TSH, Folate, Ammonia, EEG wnl. Urinary retention: ~ 300 cc per RN. Successful insertion of Swan catheter by Urology on 07/09. Voiding trial at [facility]. Outpatient Urology follow up. Preoperative Clearance: METS > 4. Cardiology consulted, intermediate risk to undergo surgery due to his comorbidities and overall poor functional capacity however no absolute contraindications. NSQIP surgical risk calculator, he is at an above average risk of 5.6% with average risk of 3.9% for serious complications, above average risk for cardiac complication at 0.7% with average risk being 0.2% and above average risk of at 0.6% with average risk being 0.2%. Cardiology consulted, intermediate risk to undergo surgery due to his cormorbidities and overall poor functional capacity however no absolute contraindications. T9 and T10 endplate fracture status post mechanical fall status post T8-T11 stabilization for T9/T10 endplate fractures with Dr. Hicks on 07/23 PVD status post stent of right common iliac vein Hypertension: Lisinopril 2.5 mg PO QD. Hyperlipidemia: Lipitor 20 mg PO QHS. BPH: Flomax 0.4 mg PO QHS. This complex discharge took 40 minutes to complete. Patient Condition at Discharge: Stable Plan - Discharge Summary Discharge Rx Participant: No New Discharge Prescriptions: New Cyclobenzaprine [Flexeril] 5 mg PO TID PRN tab PRN Reason: Muscle Spasm Magnesium Hydroxide [Milk of Magnesia] 2,400 mg PO DAILY PRN ml PRN Reason: Constipation HYDROcodone/APAP 10-325MG [[place] 10-325] 1 each PO Q6H PRN #12 tab PRN Reason: Pain Scale 7 - 10 Linagliptin [Tradjenta] 5 mg PO DAILY tab Acetaminophen Tab [Tylenol] 650 mg PO Q6HR PRN tab PRN Reason: Mild Pain Or Fever > 100.5 levETIRAcetam [Keppra] 500 mg PO Q12HR tab Atorvastatin [Lipitor] 20 mg PO HS #0 tab Sennosides [Senokot] 8.6 mg PO DAILY tab Sennosides-Docusate Sodium [Senokot-S] 2 each PO DAILY PRN tab PRN Reason: Constipation Continue PARoxetine HCL [Paxil] 40 mg PO DAILY Folic Acid 1 mg PO DAILY Ferrous Sulfate [Iron (65 MG Elemental)] 325 mg PO DAILY Tamsulosin [Flomax] 0.4 mg PO DAILY lisinopriL 2.5 mg PO DAILY Discontinued metFORMIN HCL [Glucophage] 500 mg PO Q2D Discharge Medication List PARoxetine HCL [Paxil] 40 mg PO DAILY 06/08/14 [History] Folic Acid 1 mg PO DAILY 07/12/21 [History] Tamsulosin [Flomax] 0.4 mg PO DAILY 07/12/21 [History] lisinopriL 2.5 mg PO DAILY 04/23/23 [History] Ferrous Sulfate [Iron (65 MG Elemental)] 325 mg PO DAILY 07/06/24 [History] Acetaminophen Tab [Tylenol] 650 mg PO Q6HR PRN tab 07/26/24 [Rx] Atorvastatin [Lipitor] 20 mg PO HS #0 tab 07/26/24 [Rx] Cyclobenzaprine [Flexeril] 5 mg PO TID PRN tab 07/26/24 [Rx] HYDROcodone/APAP 10-325MG [[place] 10-325] 1 each PO Q6H PRN #12 tab 07/26/24 [Rx] Linagliptin [Tradjenta] 5 mg PO DAILY tab 07/26/24 [Rx] Magnesium Hydroxide [Milk of Magnesia] 2,400 mg PO DAILY PRN ml 07/26/24 [Rx] Sennosides [Senokot] 8.6 mg PO DAILY tab 07/26/24 [Rx] Sennosides-Docusate Sodium [Senokot-S] 2 each PO DAILY PRN tab 07/26/24 [Rx] levETIRAcetam [Keppra] 500 mg PO Q12HR tab 07/26/24 [Rx] Follow up Appointment(s)/Referral(s): Jayden Jensen MD [STAFF PHYSICIAN] - 1 Week Franco Hicks DO [Doctor of Osteopathic Medicine] - 2 Weeks Cesario Corey DO [STAFF PHYSICIAN] - 1 Week Jimmy Michele DO [Primary Care Provider] - 1-2 days Activity/Diet/Wound Care/Special Instructions: Attempt voiding trail once at SNF. Spine Discharge and Recovery Instructions Date of Surgery: 07/23/2024 Diagnosis: Ankylosis of thoracic spine (Acute) Fracture of body of posterior thoracic vertebra (Acute) Closed fracture of thoracic vertebral body (Acute) Thoracic spine fracture (Acute) Encephalopathy (Acute) Fall (Acute) Procedure: OPEN TREATMENT T9-10 AO TYPE B2 FRACTURE, UNSTABLE THROUGH AN ANKYLOSED SPINE T8-T11 POSTERIOR STABILIZED FUSION Medications: See medication list All medication refills should be obtained through your primary care doctor or your clinic spine surgeon. Please discuss prescription refills at your follow up appointment. Do not call the hospital for medication refills. Dressing: Leave your dressing in place for a total of 5 days post operatively. Then you may remove your dressing and leave open to air. Keep the area clean and if not able to keep area clean, then cover with sterile gauze and tape. Showering: You may shower 3 days after your procedure allowing soap and water to run over incision. Do not scrub. Do not soak. Blot dry. Follow up: Please confirm a follow up appointment with your surgeon 3 weeks post operatively. Please make an appointment to follow up with your PCP in 1-2 weeks after surgery for evaluation '3 phase, 3-week plan' POST OP WEEKS 1-3 1. Lifting/carrying/pushing/pulling limited to less than 5 pounds. 2. Do not sit for longer than 15 minutes at one time. Get up and walk around. Prolonged sitting is NOT advised. If you lay down, see if you can tolerate laying down on you front (belly side) 3. Walk for periods of 15 minutes = 1 mile but no longer; do it multiple times times each day. 4. Ice your low back after activity. POST OP WEEKS 3-6 1. Lifting limited to less than 20 pounds. 2. Do not sit for longer than 30 minutes at a time. Frequently change positions. Use a sit-to stand workstation or take frequent breaks from sitting if you have returned to work. 3. Walk for 30 minutes each day. If possible, do these three or more times a day POST OP WEEKS 6+ At your 6-week appointment we will give you a physical therapy referral to focus on a core stabilization and strengthening program. You should also work on leg & buttock strengthening, hamstring & quadriceps stretching, and continue a low impact aerobic activity program such as swimming, walking, or riding a stationary bicycle. During the initial 6 weeks after your surgery, you are at the highest risk of re-injuring your spine. You should generally avoid BLT's (bending, lifting and twisting combination motions) and follow the above guidelines to reduce the chance of reinjury. You can anticipate post op appointments in our office at approximately 3 weeks and 6 weeks after your surgery. INCISION CARE: If your incision is not draining you do NOT need to cover it with a dressing. Keep your incision clean, dry and intact. In most cases, we apply skin glue, sary or sutures to the incision at the time of surgery. This will be like a crust or have the appearance of a scab and will fall off in time on its own. The stitches or sary need to be removed at 3 weeks post op appointment. You may begin to shower 3 days after surgery (this allows the glue to ocasio well). However, please avoid scrubbing the incision site or peeling off any of the skin glue. This will ensure optimal healing of your incision. Also, during this time avoid soaking the incision area in water - this includes swimming pools, hot tubs or baths. No ointments, lotions or oils on the incision until your surgeon allows. Leave sary, sutures or glue in place. Neurological dysfunction that comes on suddenly can also be a sign of a stroke. Below some common symptoms of a stroke are listed: B - balance difficulty such as sudden onset walking or leaning to one side - NEW E - eye problem such as sudden double vision or trouble seeing on one side - NEW F - Facial weakness or numbness on one side - NEW A - Arm or leg weakness or numbness on one side - NEW S - Slurred speech or difficulty with word finding - NEW T - Time is BRAIN! Call 911 as soon as you recognize these symptoms Diet: Consume a regular diet rich in vegetables and lean protein such as chicken or fish. You should consume in a ratio of approximately 20% fats|40% carbohydrates|40%protein. Vegetables, sweet potatoes, brown rice or quinoa are examples of good carbohydrates. Chips, white bread, cookies and sweets/sugar are examples of bad carbohydrates. Limit your bad carbs, go wild with good car bs. "Life's Simple 7" Guidelines as per [place] [employer] These will help you reclaim your life after surgery and help desk manager in your recovery, keeping in mind your restrictions. (1) Get Active. Physical activity can help people lose weight, control high blood pressure and cholesterol, feel emotionally better, and sleep better. (2) Control Cholesterol. Avoid a diet high in saturated fat, trans fat, & cholesterol. Limit whole milk & cream, ice cream, butter, egg yolks, processed meats (like sausage and hot dogs), and fatty meats. Choose healthy foods that are low in saturated fat, trans fat and cholesterol which include: Fruits and vegetables, fiber rich grain products (like whole grain pasta and brown rice), lean meat such as chicken, fish, nuts, seeds, and legumes. (3) Eat Better. Eat small portions. Shop at the grocery with a list and do not stray from it. Tips for a healthy diet include: Limit sodium intake to less than 1500mg daily, avoid prepackaged, processed, and fast foods, choose a diet rich in fruits, vegetables, and whole grain, high fiber foods, and limit saturated & cholesterol in your diet. (4) Manage Blood Pressure. If you have high blood pressure, you should have a cuff at home so that you can check your blood pressure regularly. Be sure you have a good cuff. An arm one is generally better than a wrist one. Bring the cuff to a doctor's appointment to validate that the measurements that your cuff are taking are accurate. Take your blood pressure twice daily when you are sitting down and relaxing. Record the numbers in a log and bring this log with you to your doctors' appointments. (5) Lose Weight if your BMI is above 25. A healthy BMI is between 19-25. To calculate Your BMI, you may use a Standard BMI Calculator on the NIH BMI website: <www.nhlbi.nih.gov/guidelines/obesity/BMI/bmicalc.htm>. Weigh oneself daily. If you are overweight, set a goal to lose weight. A pound a week loss if needed is a good target. (6) Reduce Blood Sugar. Limit foods and liquids with "added sugars." (Added sugars include sucrose, fructose, glucose, maltose, dextrose, high fructose corn syrup, corn syrup, concentrated fruit juice and honey). (7) Stop Smoking. If you smoke, quitting smoking is one of the best things that you can do for your health. Smoking increases your risk of heart attack, stroke, and peripheral vascular disease, which is a build-up of plaque in your arteries. Please discard all the cigarettes and lighters in your house. Have a plan for what you will do when you have the urge to smoke. Direct and second- hand smoke shortens your life as well as the lives of your family, friends and others around you. For your health and the health of those around you, please consider quitting! Proper Bending Body Mechanics: Maintain a wide stance with one foot slightly in front of the other. Keep your back straight. Bend utilizing the strength in your hips and knees. Do not bend at the waist. Maintain the lifted object at your waist-level close to your body. Avoid lifting weight that causes immediately pain or pain anywhere in the body afterwards. Smoking/Nicotine If there was ever one thing that you could do to increase your overall health, decrease your risk of cardiovascular problems by about 39% the second you make the choice, it is to STOP SMOKING. Your body's most instant gratification is the second you stop smoking. We have all heard the studies, read the articles but it is true, smoking is extremely bad for your overall health, and moreover it is detrimental to your bone health. Nicotine, IN ANY FORM, kills bone cells, prevents your body from healing fractures, and significantly prolongs healing after surgery. In spine surgery specifically, it increases your risk of not healing your bones to create a fusion and increases your risk of having a revision surgery due to this up to 60%. I know it is hard. I know it feels impossible. But there are ways. Take control of your life. We are here to help you through it. And when you are ready, ask us and we can direct you to help if you desire. Use the START Plan to Quit Smoking (please visit the Helpguide.org website listed below for more information): S = Set a quit date. Choose a date within the next 2 weeks, so you have enough time to prepare without losing your motivation to quit. If you mainly smoke at work, quit on the weekend, so you have a few days to adjust to the change. T = Tell family, friends, and co-workers that you plan to quit. Let your friends and family in on your plan to quit smoking and tell them you need their support and encouragement to stop. Look for a quit lucio who wants to stop smoking as well. You can help each other get through the rough times. A = Anticipate and plan for the challenges you'll face while quitting. Most people who begin smoking again do so within the first 3 months. You can help yourself make it through by preparing ahead for common challenges, such as nicotine withdrawal and cigarette cravings. R = Remove cigarettes and other tobacco products from your home, car, and work. Throw away all your cigarettes (no emergency pack!), lighters, ashtrays, and matches. Wash your clothes and freshen up anything that smells like smoke. S hampoo your car, clean your drapes and carpet, and steam your furniture. T = Talk to your doctor about getting help to quit. Your doctor can prescribe medication to help with withdrawal and suggest other alternatives. If you can't see a doctor, you can get many products over the counter at your local pharmacy or grocery store, including the nicotine patch, nicotine lozenges, and nicotine gum. Resources for Quitting Smoking: <https://www.[place].gov/documents/[place] health/Quit_Tobacco_Resources_for_patients_313 480_7.pdf> Supplementation: Take recommended dosages of Vitamin D and Calcium to help fortify your bones and help them to heal. See your health maintenance packet for dosages and recommended levels. DVT/VTE prophylaxis: You will be given compression stockings from the hospital. Wear these daily for the first two weeks after surgery. You may take them off at night. You may be prescribed a medication to help thin your blood. Take this as directed. If you are not prescribed this medication, early and frequent ambulation has been shown to be the best prophylaxis to deep vein thrombosis and sequelae related to this event. Discharge Disposition: TRANSFER TO SNF/ECF
--- NOTE | 2024-07-26 15:16 | CDI ---
Documentation Clarification Form Date: 07/26/2024 01:44:00 PM From: Marianna Woodruff RN CCDS Phone: [phone] Admit Date: 07/06/2024 06:04:00 AM Patient Name: Sabine Delgado Visit Number: [id number] Discharge Date: ATTENTION: The Clinical Documentation Specialists (CDI) and [facility] Coding Staff appreciate your assistance in clarifying documentation. Please respond to the clarification below the line at the bottom and electronically sign. The CDI & [facility] Coding staff will review the response and follow-up if needed. Please note: Queries are made part of the Legal Health Record. If you have any questions, please contact the author of this message via ITS. Doctor: Lawrence Carbajal Encephalopathy is documented 07/25, Neuro note. Additional clarification regarding the type of encephalopathy is requested. History/Risk Factors: 84 year old male presented to the ED as a transfer from an outside hospital 07/06/24 for a fall in which his foot got stuck in a curb that resulted in a fall. Outside imaging showed T9-T10 acute fracture. On 07/23 the patient had a T8-12 posterior stabilized fusion. T8- T11 segmental instrumentation. Vertebral body augmentation and screw augmentation with cement T8 T11. Medical History: Asthma, Cancer, HLD, HTN, OA and Sleep Apnea CPAP. Neuro note 07/25 and HP 07/06 Clinical Indicators: 07/25, Neuro note: Delirium likely hospital induced and his medication. Labs: 07/24: Wbc 10.48 hgb 12.5 neutrophils 8.43, NA 136, bun 21 total protein 6.1 EEG,08/08 : This is an abnormal routine EEG. The background slowing is suggestive of Moderate encephalopathy. There is no focal slowing, epileptiform discharge, or seizure on the EEG. CT Brain without contrast: There is no acute bleed or mass effect. Moderate age appropriate atrophy and marked chronic ischemic white matter demyelination. No interval change compared to the prior study dated 07/09/2024 CTA Brain, 07/24: Mild calcified plaque at the carotid bifurcations but no significant stenosis of the brachiocephalic origins, carotid arteries within the neck or intracranial. MRI Brain, 07/24: Extensive confluent periventricular and deep white matter ischemic type changes. No suspicious acute changes identified. Treatment: 07/23 Flexeril 5mg PO x 1; 07/24 Flexeril 5mg PO x 1; 07/25 Flexeril 5mg PO x 1, [place] 10mg PO x 1; 07/25 [place] 10mg PO x1; 07/26 [place] 10mg PO x 1; Please clarify the type of encephalopathy, if known: [ X ] Toxic Encephalopathy from medication [ ] Other, please specify [ ] Unable to determine (Template Last Revised: December 2020) MTDD
== END 2024-07-26 19:28 | DRG 450 ==
LOC: EC 03:12 → 4SSUR 06:04 → EEVIPCON 06:04 → 4SSUR 10:19 → 1SOBS 10:27 → 4SSUR 07-08 16:50
PROVIDERS: ADMIT Student in an Organized Health Care Education/Training Program; ATTEND Student in an Organized Health Care Education/Training Program
PROC: 0PS404Z Reposition Thoracic Vertebra with Internal Fixation Device, Open Approach (ICD-10-PCS; 2024-07-23)
PROC: 8E0WXBF Computer Assisted Procedure of Trunk Region, With Fluoroscopy (ICD-10-PCS; 2024-07-23)
PROC: 0RG6071 Fusion of Thoracic Vertebral Joint with Autologous Tissue Substitute, Posterior Approach, Posterior Column, Open Approach (ICD-10-PCS; principal; 2024-07-23 10:15)
DX: S22.078A Other fracture of T9-T10 vertebra, initial encounter for closed fracture (principal); G92.8 Other toxic encephalopathy; N17.9 Acute kidney failure, unspecified; E11.51 Type 2 diabetes mellitus with diabetic peripheral angiopathy without gangrene; I10 Essential (primary) hypertension; F32.A Depression, unspecified; I65.23 Occlusion and stenosis of bilateral carotid arteries; J45.909 Unspecified asthma, uncomplicated; E78.5 Hyperlipidemia, unspecified; N40.1 Benign prostatic hyperplasia with lower urinary tract symptoms; R33.8 Other retention of urine; I87.8 Other specified disorders of veins; D75.89 Other specified diseases of blood and blood-forming organs; E87.8 Other disorders of electrolyte and fluid balance, not elsewhere classified; F41.9 Anxiety disorder, unspecified; K03.81 Cracked tooth; M43.24 Fusion of spine, thoracic region; M48.061 Spinal stenosis, lumbar region without neurogenic claudication; M51.369 Other intervertebral disc degeneration, lumbar region without mention of lumbar back pain or lower extremity pain; M51.26 Other intervertebral disc displacement, lumbar region; N47.1 Phimosis; Z53.09 Procedure and treatment not carried out because of other contraindication; G47.30 Sleep apnea, unspecified; R33.9 Retention of urine, unspecified; N35.911 Unspecified urethral stricture, male, meatal; W01.0XXA Fall on same level from slipping, tripping and stumbling without subsequent striking against object, initial encounter; Y93.01 Activity, walking, marching and hiking; Y92.481 Parking lot as the place of occurrence of the external cause; Y99.8 Other external cause status; Z91.81 History of falling; Z95.820 Peripheral vascular angioplasty status with implants and grafts; Z79.82 Long term (current) use of aspirin; Z79.84 Long term (current) use of oral hypoglycemic drugs; Z79.899 Other long term (current) drug therapy; Z87.891 Personal history of nicotine dependence; Z96.643 Presence of artificial hip joint, bilateral; Z88.0 Allergy status to penicillin; T50.905A Adverse effect of unspecified drugs, medicaments and biological substances, initial encounter
CPT/HCPCS: 70450; 70496; 70498; 70553; 72070; 72128; 72131; 80048; 80053; 81001; 82140; 82607; 82746; 83036; 83735; 84443; 85025; 85027; 85610; 86850; 86900; 86901; 94760; 95816; 96374; 96375; 99285

== ENCOUNTER 2024-08-04 11:17 | Inpatient (IN) | payer MEDICARE, OTHER ==
[2024-08-04 11:28] LABS: Glucose,Whole Blood 105 mg/dL (70-110)
[2024-08-04] MEDS ORDERED: VANCOMYCIN IV PER PHARMACY 1 EACH MISC MISCELLANE PRN (11:49)
--- NOTE | 2024-08-04 11:49 | ED ---
General Adult HPI - General Chief complaint: Altered Mental Status Stated complaint: AMS Time Seen by Provider: 08/04/24 11:20 Source: patient Mode of arrival: EMS Limitations: altered mental status - History of Present Illness Initial comments: Dictation was produced using [employer] dictation software. please excuse any grammatical, word or spelling errors. Chief Complaint: 84-year-old male presents to the emergency department for altered mental status and hypotension History of Present Illness: Patient is 84-year-old male he is unable to write history present illness due to mentation. Patient is allegedly alert and oriented x 2-3 at baseline. Today he was found at the skilled nursing to be alert and oriented x 1. He was also found to be hypotensive. Patient has multiple comorbidities. He is bedbound with indwelling Ko catheter. Unable to obtain ROS secondary to mental status - Related Data Home Medications Medication Instructions Recorded Confirmed PARoxetine HCL [Paxil] 40 mg PO DAILY 06/08/14 08/04/24 Folic Acid 1 mg PO DAILY 07/12/21 08/04/24 Tamsulosin [Flomax] 0.4 mg PO DAILY 07/12/21 08/04/24 lisinopriL 2.5 mg PO DAILY 04/23/23 08/04/24 Ferrous Sulfate [Iron (65 MG 325 mg PO DAILY 07/06/24 08/04/24 Elemental)] Albuterol Nebulized [Ventolin 1.25 mg INHALATION RT-TID 08/04/24 08/04/24 Nebulized (Accuneb)] Dermaseptin 1 applic TOPICAL BID 08/04/24 08/04/24 Dermaseptin 1 applic TOPICAL BID PRN 08/04/24 08/04/24 Naloxone HCl [Narcan] 4 mg NASAL DAILY PRN 08/04/24 08/04/24 Saccharomyces Boulardii 250 mg PO BID 08/04/24 08/04/24 [Saccharomycin Df] Sennosides-Docusate Sodium 2 tab PO DAILY PRN 08/04/24 08/04/24 [Senokot-S] levETIRAcetam [Keppra] 500 mg PO BID 08/04/24 08/04/24 sitaGLIPtin [Januvia] 100 mg PO DAILY 08/04/24 08/04/24 Previous Rx's Medication Instructions Recorded Acetaminophen Tab [Tylenol] 650 mg PO Q6HR PRN tab 07/26/24 Atorvastatin [Lipitor] 20 mg PO HS #0 tab 07/26/24 HYDROcodone/APAP 10-325MG [[place] 1 each PO Q6H PRN #12 tab 07/26/24 10-325] Magnesium Hydroxide [Milk of 2,400 mg PO DAILY PRN ml 07/26/24 Magnesia] QUEtiapine [SEROquel] 12.5 mg PO HS tab 07/26/24 Sennosides [Senokot] 8.6 mg PO DAILY tab 07/26/24 Allergies Allergy/AdvReac Type Severity Reaction Status Date / Time Penicillins Allergy Rash/Hives Verified 08/04/24 12:08 Review of Systems ROS Statement: Those systems with pertinent positive or pertinent negative responses have been documented in the HPI. ROS Other: All systems not noted in ROS Statement are negative. Past Medical History Past Medical History: Asthma, Cancer, Hyperlipidemia, Hypertension, Osteoarthritis (OA), Sleep Apnea/CPAP/BIPAP Additional Past Medical History / Comment(s): cpap, fell in october 2013 and fractured left hip, periodontal infection that delayed hip surgery. 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, VRE Date of last positivie culture/infection: 02/06/22 VRE MDRO Source:: Urine Past Surgical History: Cholecystectomy, Joint Replacement, Orthopedic Surgery Additional Past Surgical History / Comment(s): brain tumor removed as a teen, cami hip replacement Past Anesthesia/Blood Transfusion Reactions: No Reported Reaction Additional Past Anesthesia/Blood Transfusion Reaction / Comment(s): very severe sleep apnea per patient Past Psychological History: Anxiety, Depression Smoking Status: Former smoker Past Alcohol Use History: None Reported Past Drug Use History: None Reported - Past Family History Brother(s) Family Medical History: Cancer Additional Family Medical History / Comment(s): kidney,liver General Exam - General Exam Comments Initial Comments: PHYSICAL EXAM: General Impression: Alert and oriented x 1 out of 3 HEENT: Normocephalic atraumatic, extra-ocular movements intact, pupils equal and reactive to light bilaterally, dry mucous membranes Cardiovascular: Heart regular rate and rhythm Chest: Able to complete full sentences, no retractions, no tachypnea Abdomen: abdomen soft, non-tender, non-distended, no organomegaly Musculoskeletal: Pulses present and equal in all extremities, no peripheral edema Motor: no focal deficits noted Neurological: CN II-XII grossly intact, no focal motor or sensory deficits noted Skin: Intact with no visualized rashes : No perennial ear induration, indwelling Ko catheter with what appears to be drainage coming from the insertion site Limitations: altered mental status Course Vital Signs 08/04/24 08/04/24 08/04/24 11:19 11:30 11:45 Temperature 97 F L Pulse Rate 85 84 82 Respiratory 16 18 20 Rate Blood Pressure 83/37 84/39 81/41 O2 Sat by Pulse 995 H 96 99 Oximetry 08/04/24 08/04/24 08/04/24 12:00 12:15 12:30 Temperature Pulse Rate 87 83 80 Respiratory 20 18 18 Rate Blood Pressure 70/47 82/40 80/37 O2 Sat by Pulse 97 99 98 Oximetry 08/04/24 08/04/24 08/04/24 12:45 13:00 13:15 Temperature Pulse Rate 83 83 78 Respiratory 18 18 18 Rate Blood Pressure 82/43 87/46 104/52 O2 Sat by Pulse 98 97 98 Oximetry 08/04/24 08/04/24 08/04/24 13:30 13:45 14:00 Temperature Pulse Rate 75 76 77 Respiratory 18 18 18 Rate Blood Pressure 111/44 97/52 103/52 O2 Sat by Pulse 98 97 97 Oximetry - Reevaluation(s) Reevaluation #1: 08/04/24 13:[address] Robbins of infectious disease request that patient be g iven daptomycin. EKG Findings - EKG Comments: EKG Findings:: My EKG interpretation: Ventricular rate 83, sinus rhythm,. 200, QRS 129, QTc 446. No CA prolongation, no QTC prolongation, no ST or T-wave changes noted. Overall, this EKG is unremarkable Procedures - Central Line Placement Right Femoral Consent Obtained: verbal consent, emergent situation Patient Placed on Monitor/Pulse Ox: Yes Prep: mask, gown, gloves Central Line Prep: Chlorhexidine scrub Local Anesthesia Used: Lidocaine 1%, with Epi Ultrasound Used for Placement: Yes Central Line Lumen Inserted: triple Bloods Obtained for Lab: Yes Central Line Position: good blood return, all ports aspirated, flushed, capped, sutured in place with 3-0 nylon Dressing Applied: Tegaderm Post Procedure X-Ray: tip of catheter in good position Patient Tolerated Procedure: well Complications: none - Sepsis Sepsis Focused Exam #1 Time Sepsis Criteria Met: 15:15 Sepsis Focused Exam Date: 08/04/24 Sepsis Focused Exam Time: 15:15 Sepsis Focused Exam Complete: Yes Vital Signs & RN Notes Reviewed: Yes Capillary Refill: < 2 Seconds: Fingers, Toes Peripheral Pulses: Normal: Radial (R), Radial (L), Posterior Tibialis (R), Posterior Tibialis (L), Dorsalis Pedis (R), Dorsalis Pedis (L) Skin Color: Normal for Patient Respiratory Exam: normal lung sounds Cardiovascular Exam: regular rate Medical Decision Making - Medical Decision Making Was pt. sent in by a medical professional or institution (, PA, SHOPPER'S AIDE, urgent care, hospital, or skilled nursing...) When possible be specific @ -No Did you speak to anyone other than the patient for history (EMS, parent, family, police, friend...)? What history was obtained from this source @ -See above Did you review nursing and triage notes (agree or disagree)? Why? @ -I reviewed and agree with nursing and triage notes Were old charts reviewed (outside hosp., previous admission, EMS record, old EKG, old radiological studies, urgent care reports/EKG's, skilled nursing records)? Report findings @ -No old charts were reviewed Differential Diagnosis (chest pain, altered mental status, abdominal pain women, abdominal pain men, vaginal bleeding, musculoskeletal, weakness, fever, dyspnea, syncope, headache, dizziness, GI bleed, back pain, seizure, CVA, palpatations, mental health)? @ -Differential Altered Mental Status: Hypoglycemia, DKA, hypercapnia, ETOH, overdose, CO poisoning, trauma, myxedema c [place], HTN encephalopathy, infection, encephalitis, psychosis, intercranial hemorrhage, hepatic encephalopathy, meningitis, CVA, this is not meant to be an all-inclusive list EKG interpreted by me (3pts min.). @ -See above X-rays interpreted by me (1pt min.). @ -Chest x-ray is nonacute CT interpreted by me (1pt min.). @ -None done U/S interpreted by me (1pt. min.). @ -None done What testing was considered but not performed or refused? (CT, X-rays, U/S, labs)? Why? @ -None What meds were considered but not given or refused? Why? @ -None Was smoking cessation discussed for >3mins.? @ -No Were there social determinants of health that impacted care today? How? (Homelessness, low income, unemployed, alcoholism, drug addiction, transportation, low edu. Level, literacy, decrease access to med. care, residential, rehab)? @ -Debility, skilled nursing patient, bedbound, indwelling Ko catheter Was there de-escalation of care discussed even if they declined (Discuss DNR or withdrawal of care, Hospice)? DNR status @ -No What co-morbidities impacted this encounter? (DM, HTN, Smoking, COPD, CAD, C ancer, CVA, ARF, Chemo, Hep., AIDS, mental health diagnosis, sleep apnea, morbid obesity)? @ -Sleep apnea Was patient admitted / discharged? Hospital course, mention meds given and route, prescriptions, significant lab abnormalities, going to OR and other pertinent info. @ -84-year-old male presents to the emergency department from skilled nursing for altered mental status hypotension. Vital signs upon arrival shows low blood pressure 83/37. Clinical presentation concerning for septic shock patient is covered with broad-spectrum antibiotics. Central venous catheter line was placed. Patient given antibiotics. See above for discussion with infectious disease. At this point patient severe sepsis. Source is urine. Patient mated to ICU. Patient reevaluated at 3:15 PM found to be in improved condition. Still requiring pressor support. Did you discuss the management of the patient with other professionals (professionals i.e. , PA, SHOPPER'S AIDE, lab, RT, psych nurse, group social worker, refrigeration manager, t eacher, assault amphibious vehicle officer, case technician)? Give summary @ -See above Was critical care preformed (if so, how long)? @ -Yes, 77 minutes Undiagnosed new problem with uncertain prognosis? @ -No Drug Therapy requiring intensive monitoring for toxicity (Heparin, Nitro, Insulin, Cardizem)? @ -No Were any procedures done? @ -No Diagnosis/symptom? Acute, or Chronic, or Acute on Chronic? Uncomplicated ( without systemic symptoms) or Complicated (systemic symptoms)? @ -Urosepsis Side effects of treatment? @ -No Exacerbation, Progression, or Severe Exacerbation? @ -No Poses a threat to life or bodily function? How? (Chest pain, USA, OR, pneumonia, PE, COPD, DKA, ARF, appy, cholecystitis, CVA, Diverticulitis, Homicidal, Suicidal, threat to staff... and all critical care pts) @ -yes - Lab Data Result diagrams: 08/04/24 11:50 08/04/24 11:50 Lab Results 08/04/24 08/04/24 08/04/24 Range/Units 11:27 11:50 11:50 WBC 20.1 H (3.8-10.6) k/uL RBC 3.43 L (4.30-5.90) m/uL Hgb 10.5 L (13.0-17.5) gm/dL Hct 32.1 L (39.0-53.0) % MCV 93.6 (80.0-100.0) fL MCH 30.7 (25.0-35.0) pg MCHC 32.8 (31.0-37.0) g/dL RDW 13.2 (11.5-15.5) % Plt Count 185 (150-450) k/uL MPV 7.7 Neutrophils % 91 % Lymphocytes % 3 % Monocytes % 5 % Eosinophils % 1 % Basophils % 0 % Neutrophils # 18.3 H (1.3-7.7) k/uL Lymphocytes # 0.6 L (1.0-4.8) k/uL Monocytes # 0.9 (0-1.0) k/uL Eosinophils # 0.1 (0-0.7) k/uL Basophils # 0.0 (0-0.2) k/uL PT 12.4 (10.0-12.5) sec INR 1.2 H (<1.2) APTT 25.5 (22.0-30.0) sec Sodium (137-145) mmol/L Potassium (3.5-5.1) mmol/L Chloride (98-107) mmol/L Carbon Dioxide (22-30) mmol/L Anion Gap mmol/L BUN (9-20) mg/dL Creatinine (0.66-1.25) mg/dL Est GFR (CKD-EPI)AfAm (>60 ml/min/1.73 sqM) Est GFR (CKD-EPI)NonAf (>60 ml/min/1.73 sqM) Glucose (74-99) mg/dL POC Glucose (mg/dL) 105 (70-110) mg/dL POC Glu Case Liner ID Venkat Johnson Lactic Ac Sepsis Rflx Plasma Lactic Acid Jordan (0.7-2.0) mmol/L Calcium (8.4-10.2) mg/dL Magnesium (1.6-2.3) mg/dL Total Bilirubin (0.2-1.3) mg/dL AST (17-59) U/L ALT (4-49) U/L Alkaline Phosphatase (38-126) U/L Troponin I (0.000-0.034) ng/mL Total Protein (6.3-8.2) g/dL Albumin (3.5-5.0) g/dL Influenza Type A (PCR) (Not Detectd) Influenza Type B (PCR) (Not Detectd) RSV (PCR) (Not Detectd) SARS-CoV-2 (PCR) (Not Detectd) 08/04/24 08/04/24 08/04/24 Range/Units 11:50 11:50 11:50 WBC (3.8-10.6) k/uL RBC (4.30-5.90) m/uL Hgb (13.0-17.5) gm/dL Hct (39.0-53.0) % MCV (80.0-100.0) fL MCH (25.0-35.0) pg MCHC (31.0-37.0) g/dL RDW (11.5-15.5) % Plt Count (150-450) k/uL MPV Neutrophils % % Lymphocytes % % Monocytes % % Eosinophils % % Basophils % % Neutrophils # (1.3-7.7) k/uL Lymphocytes # (1.0-4.8) k/uL Monocytes # (0-1.0) k/uL Eosinophils # (0-0.7) k/uL Basophils # (0-0.2) k/uL PT (10.0-12.5) sec INR (<1.2) APTT (22.0-30.0) sec Sodium 140 (137-145) mmol/L Potassium 4.2 (3.5-5.1) mmol/L Chloride 108 H (98-107) mmol/L Carbon Dioxide 23 (22-30) mmol/L Anion Gap 9 mmol/L BUN 34 H (9-20) mg/dL Creatinine 2.77 H (0.66-1.25) mg/dL Est GFR (CKD-EPI)AfAm 23 (>60 ml/min/1.73 sqM) Est GFR (CKD-EPI)NonAf 20 (>60 ml/min/1.73 sqM) Glucose 109 H (74-99) mg/dL POC Glucose (mg/dL) (70-110) mg/dL POC Glu Case Liner ID Lactic Ac Sepsis Rflx Plasma Lactic Acid Jordan 3.1 H* (0.7-2.0) mmol/L Calcium 7.8 L (8.4-10.2) mg/dL Magnesium 1.3 L (1.6-2.3) mg/dL Total Bilirubin 0.8 (0.2-1.3) mg/dL AST 41 (17-59) U/L ALT 28 (4-49) U/L Alkaline Phosphatase 93 (38-126) U/L Troponin I 0.061 H* (0.000-0.034) ng/mL Total Protein 5.8 L (6.3-8.2) g/dL Albumin 2.8 L (3.5-5.0) g/dL Influenza Type A (PCR) (Not Detectd) Influenza Type B (PCR) (Not Detectd) RSV (PCR) (Not Detectd) SARS-CoV-2 (PCR) (Not Detectd) 08/04/24 08/04/24 Range/Units 11:56 12:24 WBC (3.8-10.6) k/uL RBC (4.30-5.90) m/uL Hgb (13.0-17.5) gm/dL Hct (39.0-53.0) % MCV (80.0-100.0) fL MCH (25.0-35.0) pg MCHC (31.0-37.0) g/dL RDW (11.5-15.5) % Plt Count (150-450) k/uL MPV Neutrophils % % Lymphocytes % % Monocytes % % Eosinophils % % Basophils % % Neutrophils # (1.3-7.7) k/uL Lymphocytes # (1.0-4.8) k/uL Monocytes # (0-1.0) k/uL Eosinophils # (0-0.7) k/uL Basophils # (0-0.2) k/uL PT (10.0-12.5) sec INR (<1.2) APTT (22.0-30.0) sec Sodium (137-145) mmol/L Potassium (3.5-5.1) mmol/L Chloride (98-107) mmol/L Carbon Dioxide (22-30) mmol/L Anion Gap mmol/L BUN (9-20) mg/dL Creatinine (0.66-1.25) mg/dL Est GFR (CKD-EPI)AfAm (>60 ml/min/1.73 sqM) Est GFR (CKD-EPI)NonAf (>60 ml/min/1.73 sqM) Glucose (74-99) mg/dL POC Glucose (mg/dL) (70-110) mg/dL POC Glu Case Liner ID Lactic Ac Sepsis Rflx Y Plasma Lactic Acid Jordan (0.7-2.0) mmol/L Calcium (8.4-10.2) mg/dL Magnesium (1.6-2.3) mg/dL Total Bilirubin (0.2-1.3) mg/dL AST (17-59) U/L ALT (4-49) U/L Alkaline Phosphatase (38-126) U/L Troponin I (0.000-0.034) ng/mL Total Protein (6.3-8.2) g/dL Albumin (3.5-5.0) g/dL Influenza Type A (PCR) Not Detected (Not Detectd) Influenza Type B (PCR) Not Detected (Not Detectd) RSV (PCR) Not Detected (Not Detectd) SARS-CoV-2 (PCR) Not Detected (Not Detectd) Disposition Clinical Impression: Sepsis secondary to UTI Disposition: ADMITTED IP TO THIS HOSP Condition: Critical Decision Time: 13:00
[2024-08-04] MEDS: NOREPINEPHRINE 32 MG in SODIUM CHLORIDE 0.9% 218 ML IV ONE (12:00)
[2024-08-04] MEDS: SODIUM CHLORIDE 0.9% 2,340 ML IV STA (12:00)
[2024-08-04 12:10] LABS: ALT 28 U/L (4-49); AST 41 U/L (17-59); African American GFR (CKD) 23 (>60 ml/min/1.73 sqM); Albumin 2.8 g/dL (3.5-5.0); Alkaline Phosphatase 93 U/L (38-126); Anion Gap 9 mmol/L; Blood Urea Nitrogen 34 mg/dL (9-20); Calcium 7.8 mg/dL (8.4-10.2); Carbon Dioxide 23 mmol/L (22-30); Chloride 108 mmol/L (98-107); Glucose 109 mg/dL (74-99); Magnesium 1.3 mg/dL (1.6-2.3); Non-African American GFR(CKD) 20 (>60 ml/min/1.73 sqM); Potassium 4.2 mmol/L (3.5-5.1); Sodium 140 mmol/L (137-145); Total Bilirubin 0.8 mg/dL (0.2-1.3); Total Protein 5.8 g/dL (6.3-8.2)
[2024-08-04 12:20] LABS: INR 1.2 (<1.2); Partial Thromboplastin Time 25.5 sec (22.0-30.0); Prothrombin Time 12.4 sec (10.0-12.5)
[2024-08-04 12:23] LABS: Basophils % (A) 0 %; Eosinophils # (A) 0.1 k/uL (0-0.7); Eosinophils % (A) 1 %; HCT 32.1 % (39.0-53.0); HGB 10.5 gm/dL (13.0-17.5); Lymphocytes # (A) 0.6 k/uL (1.0-4.8); Lymphocytes % (A) 3 %; MCH 30.7 pg (25.0-35.0); MCHC 32.8 g/dL (31.0-37.0); MCV 93.6 fL (80.0-100.0); Mean Platelet Volume 7.7; Monocytes # (A) 0.9 k/uL (0-1.0); Monocytes % (A) 5 %; Neutrophils # (A) 18.3 k/uL (1.3-7.7); Neutrophils % (A) 91 %; Platelet Count 185 k/uL (150-450); RBC 3.43 m/uL (4.30-5.90); RDW 13.2 % (11.5-15.5); WBC 20.1 k/uL (3.8-10.6)
[2024-08-04] MEDS: VANCOMYCIN 2,000 MG in SODIUM CHLORIDE 0.9% 500 ML 500 ML IVPB ONE (12:26)
[2024-08-04] MEDS: CEFEPIME 2 GM in SODIUM CHLORIDE 0.9% 100 ML IVPB STA (12:31)
[2024-08-04] MEDS ORDERED: NALOXONE 0.4 MG/ML 1 ML VIAL IV PRN (12:53)
--- NOTE | 2024-08-04 13:09 | XR ---
EXAMINATION TYPE: XR chest 1V portable DATE OF EXAM: 08/04/2024 HISTORY: Shortness of breath. COMPARISON: 04/22/2023 TECHNIQUE: Single view of the chest is submitted. FINDINGS: Demonstrated are scattered senescent parenchymal change. There is no evidence for focal infiltrate. The heart is stable. Hilar and mediastinal structures are within normal limits. Degenerative changes are seen of the dorsal spine. IMPRESSION: 1. Chronic changes without evidence for acute pulmonary disease. [facility], , 08/04/2024 1:07 PM
[2024-08-04] MEDS ORDERED: DAPTOmycin 500 MG in SODIUM CHLORIDE 0.9% 50 ML IVPB SCH (13:15)
[2024-08-04] MEDS ORDERED: QUEtiapine 25 MG TAB PO PRN (13:40)
[2024-08-04] MEDS ORDERED: LINEZOLID 600 MG in DEXTROSE/WATER 1 300ML.BAG IVPB ONE (14:00)
[2024-08-04] MEDS: DAPTOmycin 500 MG in SODIUM CHLORIDE 0.9% 50 ML IVPB SCH (14:01)
[2024-08-04 14:09] LABS: Amorphous Sediment,Urine Few /hpf; Appearance,Urine Turbid (Clear); Bacteria,Urine Moderate /hpf; Bilirubin,Urine Negative (Negative); Blood,Urine Large (Negative); Calcium Oxalate Crystals,Urine Occasional /hpf; Color,Urine Light Red; Glucose,Urine (UA) Negative (Negative); Ketones,Urine Negative (Negative); Leukocyte Esterase,Urine Large (Negative); Mucus,Urine Rare /hpf; Nitrite,Urine Negative (Negative); PH, Urine 5.5 (5.0-8.0); Protein,Urine 2+ (Negative); RBC,Urine 50 /hpf (0-5); Specific Gravity,Urine 1.015 (1.001-1.035); Urobilinogen,Urine <2.0 mg/dL (<2.0); WBC,Urine >182 /hpf (0-5)
[2024-08-04] MEDS ORDERED: ONDANSETRON 4 MG/2 ML VIAL IVP PRN (15:05)
[2024-08-04] MEDS ORDERED: ACETAMINOPHEN TAB 325 MG TAB PO PRN (15:05)
--- NOTE | 2024-08-04 15:11 | P.HPIM ---
History of Present Illness H&P Date: 08/04/24 84-year-old male with PMH of PVD status post stent of the right common iliac vein, HTN, HLD presents to the ED for altered mental status and hypotension. He was recently admitted from 07/06-07/26 after a mechanical fall, underwent open treatment T9-10 AO type B2 fracture, T8-11 posterior stabilized fusion, T8-11 segmental instrumentation, vertebral body augmentation and screw augmentation with cement T8 and T11 with Dr. Hicks on 07/23. Post operatively there was concerns for seizures and he was started on Keppra. He was discharged to SNF with a Ko catheter with instructions to attempt voiding trial while there and also with a Urology follow up. It is unclear if Ko catheter was changed while at SNF. In the ED he underwent extensive evaluation. T 97F, HR 85, RR 16, BP 83/37, 95% on 3L NC. CBC, Coag panel, CMP significant for WBC 20.1, RBC 3.43, Hg 10.5, Hct 32.1, INR 1.2, Cl 108, BUN 34, Cr 2.77, glu 109, Ca 7.8, alb 2.8. Lactic acid 3.1. Troponin 0.061. RSV/Flu/COVID negative. EKG showed sinus rhythm no ST or T wave changes. CXR showed chronic changes without evidence of acute pulmonary disease. Central line was placed in the right femoral groin. He was started on Levophed and Daptomycin and admitted to ICU for further workup and management. General: non toxic, no distress, appears at stated age Derm: warm, dry, venous stasis changes lower extremities Head: atraumatic, normocephalic, symmetric Eyes: EOMI, no lid lag, anicteric sclera Mouth: no lip lesion, mucus membranes moist Cardiovascular: S1S2 reg, no murmur Lungs: Clear to auscultation bilaterally, no rhonchi, no rales , no accessory muscle use Abd: Non distended. Non tender to palpation, + Ko Ext: no gross muscle atrophy, no edema, no contractures Neuro: No focal neurologic deficits Psych: Alert, oriented x 2 Based on my assessment of this patient, this patient meets a high complexity level of care. Acute metabolic encephalopathy likely due to below: Fall, Aspiration, Seizure precautions. Elevated HOB. Septic shock likely due to UTI: History of VRE. Started on Daptomycin 500 mg IV Q48H. Obtain BCx. Obtain UC/UCx. Telemetry monitoring. Levophed drip to maintain MAP > 65. NS at 130 cc/hr. Admit to ICU. ID consult. Type II NSTEMI: Trend Troponin. Obtain Echo. Lactic acidosis: IV hydration as above. Trend until negative. Hypomagnesemia: 4g mag sulfate IV x 1. Acute kidney injury: IV hydration as above. Obtain Renal bladder US. Hold Lisinopril. Nephrology consult. Normocytic anemia: No signs of active bleeding. Monitor. T9 and T10 endplate fracture status post mechanical fall status post T8-T11 stabilization for T9/T10 endplate fractures with Dr. Hicks on 07/23 PVD status post stent of right common iliac vein Hypertension: Hold Lisinopril. Hyperlipidemia: Lipitor 20 mg PO QHS. BPH: Hold Flomax. Concerns for seizures: Keppra 500 mg PO BID. Dementia: Paxil 40 mg PO QD. Seroquel 12.5 mg PO QHS PRN. CODE STATUS: FULL CODE DVT Prophylaxis: Heparin SQ GI Prophylaxis: Protonix IV Designated medical POA if patient is not able to make medical decisions for themselves: Guardian Dispo: I have reviewed the following recruitment consultant notes: ED note I have reviewed the results of the following tests: As above. I have ordered the following tests: As above. I have discussed the care of this patient with the following independent historian: I have independently interpreted the following test below: I have discussed the management of this patient with the following physician: ER provider. Past Medical History Past Medical History: Asthma, Cancer, Hyperlipidemia, Hypertension, Osteoarthritis (OA), Sleep Apnea/CPAP/BIPAP Additional Past Medical History / Comment(s): cpap, fell in october 2013 and fractured left hip, periodontal infection that delayed hip surgery. 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, VRE Date of last positivie culture/infection: 02/06/22 VRE MDRO Source:: Urine Past Surgical History: Cholecystectomy, Joint Replacement, Orthopedic Surgery Additional Past Surgical History / Comment(s): brain tumor removed as a teen, cami hip replacement Past Anesthesia/Blood Transfusion Reactions: No Reported Reaction Additional Past Anesthesia/Blood Transfusion Reaction / Comment(s): very severe sleep apnea per patient Past Psychological History: Anxiety, Depression Smoking Status: Former smoker Past Alcohol Use History: None Reported Past Drug Use History: None Reported - Past Family History Brother(s) Family Medical History: Cancer Additional Family Medical History / Comment(s): kidney,liver Medications and Allergies Home Medications Medication Instructions Recorded Confirmed Type PARoxetine HCL [Paxil] 40 mg PO DAILY 06/08/14 08/04/24 History Folic Acid 1 mg PO DAILY 07/12/21 08/04/24 History Tamsulosin [Flomax] 0.4 mg PO DAILY 07/12/21 08/04/24 History lisinopriL 2.5 mg PO DAILY 04/23/23 08/04/24 History Ferrous Sulfate [Iron (65 MG 325 mg PO DAILY 07/06/24 08/04/24 History Elemental)] Acetaminophen Tab [Tylenol] 650 mg PO Q6HR PRN tab 07/26/24 08/04/24 Rx Atorvastatin [Lipitor] 20 mg PO HS #0 tab 07/26/24 08/04/24 Rx HYDROcodone/APAP 10-325MG [[place] 1 each PO Q6H PRN #12 tab 07/26/24 08/04/24 Rx 10-325] Magnesium Hydroxide [Milk of 2,400 mg PO DAILY PRN ml 07/26/24 08/04/24 Rx Magnesia] QUEtiapine [SEROquel] 12.5 mg PO HS tab 07/26/24 08/04/24 Rx Sennosides [Senokot] 8.6 mg PO DAILY tab 07/26/24 08/04/24 Rx Albuterol Nebulized [Ventolin 1.25 mg INHALATION RT-TID 08/04/24 08/04/24 History Nebulized (Accuneb)] Dermaseptin 1 applic TOPICAL BID 08/04/24 08/04/24 History Dermaseptin 1 applic TOPICAL BID PRN 08/04/24 08/04/24 History Naloxone HCl [Narcan] 4 mg NASAL DAILY PRN 08/04/24 08/04/24 History Saccharomyces Boulardii 250 mg PO BID 08/04/24 08/04/24 History [Saccharomycin Df] Sennosides-Docusate Sodium 2 tab PO DAILY PRN 08/04/24 08/04/24 History [Senokot-S] levETIRAcetam [Keppra] 500 mg PO BID 08/04/24 08/04/24 History sitaGLIPtin [Januvia] 100 mg PO DAILY 08/04/24 08/04/24 History Allergies Allergy/AdvReac Type Severity Reaction Status Date / Time Penicillins Allergy Rash/Hives Verified 08/04/24 12:08 Physical Exam Vitals: Vital Signs Temp Pulse Resp BP Pulse Ox 08/04/24 13:00 83 18 87/46 97 08/04/24 12:45 83 18 82/43 98 08/04/24 12:30 80 18 80/37 98 08/04/24 12:15 83 18 82/40 99 08/04/24 12:00 87 20 70/47 97 08/04/24 11:45 82 20 81/41 99 08/04/24 11:30 84 18 84/39 96 08/04/24 11:19 97 F L 85 16 83/37 995 H Intake and Output 08/03/24 08/04/24 08/04/24 22:59 06:59 14:59 Other: Weight 102.512 kg Results CBC & Chem 7: 08/04/24 11:50 08/04/24 11:50 Labs: Abnormal Lab Results - Last 24 Hours (Table) 08/04/24 08/04/24 08/04/24 Range/Units 11:50 11:50 11:50 WBC 20.1 H (3.8-10.6) k/uL RBC 3.43 L (4.30-5.90) m/uL Hgb 10.5 L (13.0-17.5) gm/dL Hct 32.1 L (39.0-53.0) % Neutrophils # 18.3 H (1.3-7.7) k/uL Lymphocytes # 0.6 L (1.0-4.8) k/uL INR 1.2 H (<1.2) Chloride 108 H (98-107) mmol/L BUN 34 H (9-20) mg/dL Creatinine 2.77 H (0.66-1.25) mg/dL Glucose 109 H (74-99) mg/dL Plasma Lactic Acid Jordan (0.7-2.0) mmol/L Calcium 7.8 L (8.4-10.2) mg/dL Magnesium 1.3 L (1.6-2.3) mg/dL Troponin I (0.000-0.034) ng/mL Total Protein 5.8 L (6.3-8.2) g/dL Albumin 2.8 L (3.5-5.0) g/dL 08/04/24 08/04/24 Range/Units 11:50 11:50 WBC (3.8-10.6) k/uL RBC (4.30-5.90) m/uL Hgb (13.0-17.5) gm/dL Hct (39.0-53.0) % Neutrophils # (1.3-7.7) k/uL Lymphocytes # (1.0-4.8) k/uL INR (<1.2) Chloride (98-107) mmol/L BUN (9-20) mg/dL Creatinine (0.66-1.25) mg/dL Glucose (74-99) mg/dL Plasma Lactic Acid Jordan 3.1 H* (0.7-2.0) mmol/L Calcium (8.4-10.2) mg/dL Magnesium (1.6-2.3) mg/dL Troponin I 0.061 H* (0.000-0.034) ng/mL Total Protein (6.3-8.2) g/dL Albumin (3.5-5.0) g/dL
[2024-08-04] MEDS: SODIUM CHLORIDE 0.9% 1,000 ML IV SCH (15:45)
[2024-08-04] MEDS: MAGNESIUM SULFATE-D5W PMX 1 GM in DEXTROSE/WATER 1 100ML.BAG IVPB SCH (15:46)
--- NOTE | 2024-08-04 15:55 | US ---
EXAMINATION TYPE: US kidneys/renal and bladder DATE OF EXAM: 08/04/2024 COMPARISON: CT, US CLINICAL INDICATION: Male, 84 years old with history of harshad; HARSHAD TECHNIQUE: Grayscale and color Doppler imaging of the bilateral kidneys and urinary bladder: FINDINGS: EXAM MEASUREMENTS: Right Kidney: 10.9 x 5.2 x 4.9 cm Left Kidney: 11.5 x 4.9 x 5.6 cm Exam is limited due to gas and patient body habitus. Right Kidney: No hydronephrosis or masses seen Left Kidney: Extremely limited evaluation. No hydronephrosis or masses seen Bladder: Not visualized Bilateral Jets seen: No There is no evidence for hydronephrosis at this point in time. No nephrolithiasis is seen. No jose s are identified. The urinary bladder is anechoic. IMPRESSION: No evidence for obstructive uropathy. [facility], , 08/04/2024 3:52 PM
[2024-08-04] MEDS: ALBUTEROL NEBULIZED 2.5 MG/3 ML INHALATION SCH (20:31)
[2024-08-04] MEDS: ATORVASTATIN 20 MG TAB PO SCH (20:42)
[2024-08-04] MEDS: HEPARIN SODIUM,PORCINE 5,000 UNIT/ML 1 ML VIAL SQ SCH (20:42)
[2024-08-04] MEDS: levETIRAcetam 500 MG TAB PO SCH (20:42)
[2024-08-04] MEDS: CEFEPIME 1 GM in SODIUM CHLORIDE 0.9% 50 ML IVPB SCH (23:12)
[2024-08-05 05:56] LABS: Basophils % (A) 0 %; Eosinophils # (A) 0.2 k/uL (0-0.7); Eosinophils % (A) 1 %; HCT 29.7 % (39.0-53.0); HGB 9.7 gm/dL (13.0-17.5); Lymphocytes # (A) 0.9 k/uL (1.0-4.8); Lymphocytes % (A) 6 %; MCHC 32.5 g/dL (31.0-37.0); MCV 95.2 fL (80.0-100.0); Mean Platelet Volume 8.6; Monocytes # (A) 0.6 k/uL (0-1.0); Monocytes % (A) 3 %; Neutrophils % (A) 89 %; Platelet Count 186 k/uL (150-450); RBC 3.12 m/uL (4.30-5.90); RDW 13.3 % (11.5-15.5); WBC 16.8 k/uL (3.8-10.6)
[2024-08-05] MEDS ORDERED: VANCOMYCIN 1,750 MG in SODIUM CHLORIDE 0.9% 500 ML 500 ML IVPB SCH (06:00)
[2024-08-05 06:22] LABS: African American GFR (CKD) 28 (>60 ml/min/1.73 sqM); Anion Gap 4 mmol/L; Blood Urea Nitrogen 38 mg/dL (9-20); Calcium 7.6 mg/dL (8.4-10.2); Carbon Dioxide 22 mmol/L (22-30); Chloride 111 mmol/L (98-107); Glucose 114 mg/dL (74-99); Magnesium 2.5 mg/dL (1.6-2.3); Non-African American GFR(CKD) 24 (>60 ml/min/1.73 sqM); Potassium 3.8 mmol/L (3.5-5.1); Sodium 137 mmol/L (137-145)
--- NOTE | 2024-08-05 07:04 | P.CONS ---
History of Present Illness - Reason for Consult Consult date: 08/04/24 Infection Requesting physician: Kvng Davis - Chief Complaint Mental status changes x 1 day - History of Present Illness patient is a 84-year-old male with a past medical history significant for hypertension hyperlipidemia sleep apnea did have a history of recurrent urinary tract infection patient has been sent to the hospital from the local half-way for evaluation of mental status changes patient normally is alert and oriented however nursing staff noted the patient to be oriented x 1 only and also become hypotensive for the patient has been sent to the ER on presentation to the hospital patient was afebrile he was nontachycardic but hypertensive requiring fluid boluses not hypoxic patient did have a elevated white count 20,000 with a left shift BUN and creatinine has been elevated liver enzymes are normal urine was significantly positive influenza RSV COVID testing was negative he did have a chest x-ray chronic changes without evidence of acute pulmonary disease process patient has been diagnosed with sepsis secondary to UTI infectious disease was consulted for further management of antibiotic therapy patient the time my evaluation is awake however not a very good historian denies any headache or URI symptoms no chest pain shortness of breath or cough no abdominal pain and no diarrhea has been reported Review of Systems Positive points has been mentioned in HPI complete review could not be obtained because of his underlying mental status Past Medical History Past Medical History: Asthma, Cancer, Hyperlipidemia, Hypertension, Osteoarthritis (OA), Sleep Apnea/CPAP/BIPAP Additional Past Medical History / Comment(s): cpap, fell in october 2013 and fractured left hip, periodontal infection that delayed hip surgery. 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 Past Surgical History: Cholecystectomy, Joint Replacement, Orthopedic Surgery Additional Past Surgical History / Comment(s): brain tumor removed as a teen, cami hip replacement Past Anesthesia/Blood Transfusion Reactions: No Reported Reaction Additional Past Anesthesia/Blood Transfusion Reaction / Comm: very severe sleep apnea per patient Past Psychological History: Anxiety, Depression Smoking Status: Former smoker Past Alcohol Use History: None Reported Past Drug Use History: None Reported - Past Family History Brother(s) Family Medical History: Cancer Additional Family Medical History / Comment(s): kidney,liver Medications and Allergies Home Medications Medication Instructions Recorded Confirmed Type PARoxetine HCL [Paxil] 40 mg PO DAILY 06/08/14 08/04/24 History Folic Acid 1 mg PO DAILY 07/12/21 08/04/24 History Tamsulosin [Flomax] 0.4 mg PO DAILY 07/12/21 08/04/24 History lisinopriL 2.5 mg PO DAILY 04/23/23 08/04/24 History Ferrous Sulfate [Iron (65 MG 325 mg PO DAILY 07/06/24 08/04/24 History Elemental)] Acetaminophen Tab [Tylenol] 650 mg PO Q6HR PRN tab 07/26/24 08/04/24 Rx Atorvastatin [Lipitor] 20 mg PO HS #0 tab 07/26/24 08/04/24 Rx HYDROcodone/APAP 10-325MG [[place] 1 each PO Q6H PRN #12 tab 07/26/24 08/04/24 Rx 10-325] Magnesium Hydroxide [Milk of 2,400 mg PO DAILY PRN ml 07/26/24 08/04/24 Rx Magnesia] QUEtiapine [SEROquel] 12.5 mg PO HS tab 07/26/24 08/04/24 Rx Sennosides [Senokot] 8.6 mg PO DAILY tab 07/26/24 08/04/24 Rx Albuterol Nebulized [Ventolin 1.25 mg INHALATION RT-TID 08/04/24 08/04/24 History Nebulized (Accuneb)] Dermaseptin 1 applic TOPICAL BID 08/04/24 08/04/24 History Dermaseptin 1 applic TOPICAL BID PRN 08/04/24 08/04/24 History Naloxone HCl [Narcan] 4 mg NASAL DAILY PRN 08/04/24 08/04/24 History Saccharomyces Boulardii 250 mg PO BID 08/04/24 08/04/24 History [Saccharomycin Df] Sennosides-Docusate Sodium 2 tab PO DAILY PRN 08/04/24 08/04/24 History [Senokot-S] levETIRAcetam [Keppra] 500 mg PO BID 08/04/24 08/04/24 History sitaGLIPtin [Januvia] 100 mg PO DAILY 08/04/24 08/04/24 History Allergies Allergy/AdvReac Type Severity Reaction Status Date / Time Penicillins Allergy Rash/Hives Verified 08/04/24 12:08 Physical Exam Vitals: Vital Signs Temp Pulse Resp BP Pulse Ox 08/04/24 16:29 74 20 104/45 99 08/04/24 15:51 76 18 101/43 98 08/04/24 14:00 77 18 103/52 97 08/04/24 13:45 76 18 97/52 97 08/04/24 13:30 75 18 111/44 98 08/04/24 13:15 78 18 104/52 98 08/04/24 13:00 83 18 87/46 97 08/04/24 12:45 83 18 82/43 98 08/04/24 12:30 80 18 80/37 98 08/04/24 12:15 83 18 82/40 99 08/04/24 12:00 87 20 70/47 97 08/04/24 11:45 82 20 81/41 99 08/04/24 11:30 84 18 84/39 96 08/04/24 11:19 97 F L 85 16 83/37 995 H Intake and Output 08/04/24 08/04/24 08/04/24 06:59 14:59 22:59 Other: Weight 102.512 kg GENERAL DESCRIPTION: Elderly male lying in bed, no distress. No tachypnea or accessory muscle of respiration use. HEENT: Shows Pallor , no scleral icterus. Oral mucous membrane is dry. NECK: Trachea central, no thyromegaly. LUNGS: Unlabored breathing. Clear to auscultation anteriorly. No wheeze or crackle. HEART: S1, S2, regular rate and rhythm. No loud murmur ABDOMEN: Soft, no tenderness , guarding or rigidity, no organomegaly EXTREMITIES: No edema of feet. SKIN: No rash, no masses palpable. NEUROLOGICAL: The patient is awake, alert, oriented x1 mood and affect normal. Results CBC & Chem 7: 08/05/24 05:37 08/05/24 05:37 Labs: Abnormal Lab Results - Last 24 Hours (Table) 08/04/24 08/04/24 08/04/24 Range/Units 11:50 11:50 11:50 WBC 20.1 H (3.8-10.6) k/uL RBC 3.43 L (4.30-5.90) m/uL Hgb 10.5 L (13.0-17.5) gm/dL Hct 32.1 L (39.0-53.0) % Neutrophils # 18.3 H (1.3-7.7) k/uL Lymphocytes # 0.6 L (1.0-4.8) k/uL INR 1.2 H (<1.2) Chloride 108 H (98-107) mmol/L BUN 34 H (9-20) mg/dL Creatinine 2.77 H (0.66-1.25) mg/dL Glucose 109 H (74-99) mg/dL Plasma Lactic Acid Jordan (0.7-2.0) mmol/L Calcium 7.8 L (8.4-10.2) mg/dL Magnesium 1.3 L (1.6-2.3) mg/dL Troponin I (0.000-0.034) ng/mL Total Protein 5.8 L (6.3-8.2) g/dL Albumin 2.8 L (3.5-5.0) g/dL Urine Protein (Negative) Urine Blood (Negative) Ur Leukocyte Esterase (Negative) Urine RBC (0-5) /hpf Urine WBC (0-5) /hpf Calcium Oxalate Crystal (None) /hpf Amorphous Sediment (None) /hpf Urine Bacteria (None) /hpf Urine Mucus (None) /hpf 08/04/24 08/04/24 08/04/24 Range/Units 11:50 11:50 13:12 WBC (3.8-10.6) k/uL RBC (4.30-5.90) m/uL Hgb (13.0-17.5) gm/dL Hct (39.0-53.0) % Neutrophils # (1.3-7.7) k/uL Lymphocytes # (1.0-4.8) k/uL INR (<1.2) Chloride (98-107) mmol/L BUN (9-20) mg/dL Creatinine (0.66-1.25) mg/dL Glucose (74-99) mg/dL Plasma Lactic Acid Jordan 3.1 H* (0.7-2.0) mmol/L Calcium (8.4-10.2) mg/dL Magnesium (1.6-2.3) mg/dL Troponin I 0.061 H* (0.000-0.034) ng/mL Total Protein (6.3-8.2) g/dL Albumin (3.5-5.0) g/dL Urine Protein 2+ H (Negative) Urine Blood Large H (Negative) Ur Leukocyte Esterase Large H (Negative) Urine RBC 50 H (0-5) /hpf Urine WBC >182 H (0-5) /hpf Calcium Oxalate Crystal Occasional H (None) /hpf Amorphous Sediment Few H (None) /hpf Urine Bacteria Moderate H (None) /hpf Urine Mucus Rare H (None) /hpf 08/04/24 Range/Units 14:37 WBC (3.8-10.6) k/uL RBC (4.30-5.90) m/uL Hgb (13.0-17.5) gm/dL Hct (39.0-53.0) % Neutrophils # (1.3-7.7) k/uL Lymphocytes # (1.0-4.8) k/uL INR (<1.2) Chloride (98-107) mmol/L BUN (9-20) mg/dL Creatinine (0.66-1.25) mg/dL Glucose (74-99) mg/dL Plasma Lactic Acid Jordan 2.4 H* (0.7-2.0) mmol/L Calcium (8.4-10.2) mg/dL Magnesium (1.6-2.3) mg/dL Troponin I (0.000-0.034) ng/mL Total Protein (6.3-8.2) g/dL Albumin (3.5-5.0) g/dL Urine Protein (Negative) Urine Blood (Negative) Ur Leukocyte Esterase (Negative) Urine RBC (0-5) /hpf Urine WBC (0-5) /hpf Calcium Oxalate Crystal (None) /hpf Amorphous Sediment (None) /hpf Urine Bacteria (None) /hpf Urine Mucus (None) /hpf Assessment and Plan (1) Sepsis Current Visit: Yes Status: Acute Code(s): A41.9 - SEPSIS, UNSPECIFIED ORGANISM SNOMED Code(s): 46691716 (2) Catheter-associated urinary tract infection Current Visit: Yes Status: Acute Code(s): T83.511A - I/I REACT D/T INDWELLING URETHRAL CATHETER, INIT; N39.0 - URINARY TRACT INFECTION, SITE NOT SPECIFIED SNOMED Code(s): 437105802 Plan: 1patient presented to hospital with sepsis in this patient who did have hypotension elevated white count source is likely catheter associated UTI as no other obvious focus of infection no evidence of pneumonia abdominal pain soft no evidence of any cellulitis or joint swelling will need to cover for the enteric gram-negative to the likely pathogen however patient did have last urine culture positive for VRE 2-care has been discussed with the ER physician patient has been empirically started on daptomycin will add cefepime while waiting for the culture to finalize We will follow on clinical condition and cultures to further adjust medication if needed Thank you for this consultation we will follow the patient along with you Dictation was produced using [employer] dictation software. please excuse any gramm atical, word or spelling errors. Time with Patient: Greater than 30
[2024-08-05] MEDS: FOLIC ACID 1 MG TAB PO SCH (09:06)
[2024-08-05] MEDS: FERROUS SULFATE 325 MG TAB PO SCH (09:06)
[2024-08-05] MEDS: PARoxetine 20 MG TAB PO SCH (09:06)
[2024-08-05] MEDS: PANTOPRAZOLE 40 MG/10 ML VIAL IVP SCH (09:10)
--- NOTE | 2024-08-05 10:52 | P.NPCON ---
History of Present Illness - Reason for Consult acute renal failure - History of Present Illness Reason for consultation: Acute kidney injury History of present illness: Patient is a 84-year-old male seen in renal consultation for acute kidney injury. Baseline creatinine near 1 from earlier this month and elevated at 2.77 this admission. Patient was brought to the hospital from an ECF due to altered mental status. Patient was noted to be alert and oriented x 1 and is usually alert and oriented x 2-3 at baseline per records. Patient was found to be hypotensive with blood pressure documented as 70/40 on admission. Patient received a fluid bolus and is receiving maintenance fluids. Also on Levophed. Has a chronic Ko catheter. Nonoliguric. Urine output documented as 1.7 L since admission. Patient was recently admitted at this facility and at that time was admitted after he sustained a fall and underwent extensive back surgery. No hydronephrosis noted on kidney ultrasound. On IV antibiotics. ID following. I do see lisinopril on his home medication list which is currently held. Patient does have history of diabetes. Vital signs are stable. On Levophed. General: No acute distress. HEENT: Head exam is unremarkable. On nasal cannula. LUNGS: No audible rhonchi or wheezes. HEART: Rate and Rhythm are regular. ABDOMEN: Nontender. EXTREMITITES: No edema. Past Medical History Past Medical History: Asthma, Cancer, Hyperlipidemia, Hypertension, Osteoarthritis (OA), Sleep Apnea/CPAP/BIPAP Additional Past Medical History / Comment(s): cpap, fell in october 2013 and fractured left hip, periodontal infection that delayed hip surgery. 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, VRE Date of last positivie culture/infection: 02/06/22 VRE MDRO Source:: Urine Past Surgical History: Cholecystectomy, Joint Replacement, Orthopedic Surgery Additional Past Surgical History / Comment(s): brain tumor removed as a teen, cami hip replacement Past Anesthesia/Blood Transfusion Reactions: No Reported Reaction Additional Past Anesthesia/Blood Transfusion Reaction / Comment(s): very severe sleep apnea per patient Past Psychological History: Anxiety, Depression Smoking Status: Former smoker Past Alcohol Use History: None Reported Past Drug Use History: None Reported - Past Family History Brother(s) Family Medical History: Cancer Additional Family Medical History / Comment(s): kidney,liver Medications and Allergies Home Medications Medication Instructions Recorded Confirmed Type PARoxetine HCL [Paxil] 40 mg PO DAILY 06/08/14 08/04/24 History Folic Acid 1 mg PO DAILY 07/12/21 08/04/24 History Tamsulosin [Flomax] 0.4 mg PO DAILY 07/12/21 08/04/24 History lisinopriL 2.5 mg PO DAILY 04/23/23 08/04/24 History Ferrous Sulfate [Iron (65 MG 325 mg PO DAILY 07/06/24 08/04/24 History Elemental)] Acetaminophen Tab [Tylenol] 650 mg PO Q6HR PRN tab 07/26/24 08/04/24 Rx Atorvastatin [Lipitor] 20 mg PO HS #0 tab 07/26/24 08/04/24 Rx HYDROcodone/APAP 10-325MG [[place] 1 each PO Q6H PRN #12 tab 07/26/24 08/04/24 Rx 10-325] Magnesium Hydroxide [Milk of 2,400 mg PO DAILY PRN ml 07/26/24 08/04/24 Rx Magnesia] QUEtiapine [SEROquel] 12.5 mg PO HS tab 07/26/24 08/04/24 Rx Sennosides [Senokot] 8.6 mg PO DAILY tab 07/26/24 08/04/24 Rx Albuterol Nebulized [Ventolin 1.25 mg INHALATION RT-TID 08/04/24 08/04/24 History Nebulized (Accuneb)] Dermaseptin 1 applic TOPICAL BID 08/04/24 08/04/24 History Dermaseptin 1 applic TOPICAL BID PRN 08/04/24 08/04/24 History Naloxone HCl [Narcan] 4 mg NASAL DAILY PRN 08/04/24 08/04/24 History Saccharomyces Boulardii 250 mg PO BID 08/04/24 08/04/24 History [Saccharomycin Df] Sennosides-Docusate Sodium 2 tab PO DAILY PRN 08/04/24 08/04/24 History [Senokot-S] levETIRAcetam [Keppra] 500 mg PO BID 08/04/24 08/04/24 History sitaGLIPtin [Januvia] 100 mg PO DAILY 08/04/24 08/04/24 History Allergies Allergy/AdvReac Type Severity Reaction Status Date / Time Penicillins Allergy Rash/Hives Verified 08/04/24 12:08 Physical Exam Vitals: Vital Signs Temp Pulse Resp BP Pulse Ox 08/05/24 09:00 83 20 101/46 98 08/05/24 08:21 78 08/05/24 08:15 97 08/05/24 08:13 76 08/05/24 08:00 99/39 08/05/24 07:49 85 20 115/43 98 08/05/24 06:15 85 18 109/48 98 08/05/24 04:00 86 18 123/51 96 08/05/24 01:00 86 19 107/47 95 08/05/24 00:00 86 20 102/43 98 08/04/24 23:00 82 17 99/45 98 08/04/24 22:47 78 16 99/45 96 08/04/24 22:00 80 15 101/43 99 08/04/24 21:00 80 20 111/42 97 08/04/24 20:31 71 08/04/24 20:00 74 18 111/42 98 08/04/24 19:00 73 18 101/43 98 08/04/24 18:30 80 18 95/42 98 08/04/24 18:00 70 18 99/55 99 08/04/24 17:30 73 16 99/40 98 08/04/24 17:00 75 19 106/49 99 08/04/24 16:30 73 20 104/45 99 08/04/24 16:29 74 20 104/45 99 08/04/24 16:00 74 21 109/47 98 08/04/24 15:51 76 18 101/43 98 08/04/24 15:50 77 17 98 08/04/24 14:00 77 18 103/52 97 08/04/24 13:45 76 18 97/52 97 08/04/24 13:30 75 18 111/44 98 08/04/24 13:15 78 18 104/52 98 08/04/24 13:00 83 18 87/46 97 08/04/24 12:45 83 18 82/43 98 08/04/24 12:30 80 18 80/37 98 08/04/24 12:15 83 18 82/40 99 08/04/24 12:00 87 20 70/47 97 08/04/24 11:45 82 20 81/41 99 08/04/24 11:30 84 18 84/39 96 08/04/24 11:19 97 F L 85 16 83/37 995 H Intake and Output 08/04/24 08/05/24 08/05/24 22:59 06:59 14:59 Intake Total 28.851 Output Total 1700 Balance -1671.149 Intake: Intake, IV Titration 28.851 Amount Norepinephrine 32 mg In 28.851 Sodium Chloride 0.9% 218 ml @ 0.03 MCG/KG/MIN 1. 442 mls/hr IV .Q24H ONE Rx#:[id number] Output: Urine 1700 Results - Lab Results Most recent lab results Calcium 7.6 mg/dL (8.4-10.2) L 08/05/24 05:37 Magnesium 2.5 mg/dL (1.6-2.3) H 08/05/24 05:37 08/05/24 05:37 08/05/24 05:37 Assessment and Plan Plan: Assessment: 1. Acute kidney injury secondary to ATN secondary to septic shock. Baseline creatinine near 1 and was elevated at 2.7 this admission - 2.37 today. No hydronephrosis noted on kidney ultrasound. 2. Septic shock. Appears to be from UTI. On IV antibiotics. ID following. 3. Hypomagnesemia from poor intake. Replaced. Improved. 4. Diabetes mellitus. Plan: Maintain IV fluids. Ko catheter to be changed this admission. Discussed with RN. Follow-up cultures. Avoid nephrotoxins. Continue to monitor renal function and urine output. Wean Levophed. Thank you for the consultation. I will continue to follow the patient with you during his hospital stay.
--- NOTE | 2024-08-05 11:18 | CA ---
Transthoracic Echo Report Name: Sabine Delgado Age: 84 Gender: M : 1940 Exam Date: 08/05/2024 08:12 Exam Location: [place] [facility] Ht (in): 71 Wt (lb): 226 Ordering Physician: Oscar Sotomayor MD Attending/Referring Phys: Mortgage Accounting Clerk Teresa Gaston RDCS Procedure CPT: Indications: trop Cardiac Hx: Technical Quality: Technically difficult study Contrast 1: Definity Total Dose (mL): 2 Contrast 2: Total Dose (mL): MEASUREMENTS (Male / Female) Normal Values 2D ECHO LV Diastolic Diameter PLAX 5.0 cm 4.2 - 5.9 / 3.9 - 5.3 cm LV Systolic Diameter PLAX 3.4 cm IVS Diastolic Thickness 0.9 cm 0.6 - 1.0 / 0.6 - 0.9 cm LVPW Diastolic Thickness 1.2 cm 0.6 - 1.0 / 0.6 - 0.9 cm LV Relative Wall Thickness 0.4 LVOT Diameter 2.1 cm LV Diastolic Volume MOD 4C 135.7 cm??? LV Systolic Volume MOD 4C 30.5 cm??? LV Ejection Fraction MOD 4C 77.5 % LV Cardiac Index MOD 4C 3436.6 cm???/min???m??? LV Diastolic Length 4C 9.1 cm LV Systolic Length 4C 6.4 cm LV Diastolic Volume MOD 2C 98.3 cm??? LV Diastolic Length 2C 8.3 cm LA Volume 65.0 cm??? 18 - 58 / 22 - 52 cm??? LA Volume Index 28.3 cm???/m??? 16 - 28 cm???/m??? Ascending Aorta Diameter 3.4 cm DOPPLER AV Peak Velocity 210.3 cm/s AV Peak Gradient 17.7 mmHg AV Mean Velocity 145.2 cm/s AV Mean Gradient 9.5 mmHg AV Velocity Time Integral 42.0 cm LVOT Peak Velocity 142.5 cm/s LVOT Peak Gradient 8.1 mmHg LVOT Velocity Time Integral 30.5 cm LVOT Stroke Volume 107.0 cm??? LVOT Stroke Volume Index 48.2 ml/m??? LVOT Cardiac Index 3497.3 cm???/min???m??? AV Area Cont Eq vti 2.5 cm??? AV Area Cont Eq pk 2.4 cm??? MV Area PHT 3.4 cm??? Mitral E Point Velocity 78.7 cm/s Mitral A Point Velocity 85.7 cm/s Mitral E to A Ratio 0.9 MV Deceleration Time 224.6 ms TR Peak Velocity 288.8 cm/s TR Peak Gradient 33.4 mmHg Right Atrial Pressure 5.0 mmHg Pulmonary Artery Systolic Pressu 38.4 mmHg Right Ventricular Systolic Press 38.4 mmHg PV Peak Velocity 118.6 cm/s PV Peak Gradient 5.6 mmHg FINDINGS Left Ventricle Left ventricular ejection fraction is estimated at 60-65 %. Left ventricular cavity size normal. Left ventricular wall thickness normal. No obvious regional wall motion abnormalities. Right Ventricle Normal right ventricular size and function. Mild pulmonary hypertension. Right Atrium Normal right atrial size. Left Atrium Mildly increased left atrial volume. Mildly increased left atrial area. Mitral Valve Structurally normal mitral valve. No evidence for mitral valve prolapse. No mitral stenosis. Trace mitral regurgitation. Aortic Valve Trileaflet aortic valve. No aortic valve stenosis or regurgitation. Tricuspid Valve Structurally normal tricuspid valve. No tricuspid stenosis. Mild tricuspid regurgitation. Pulmonic Valve Pulmonic valve not well visualized. No pulmonic stenosis. No pulmonic regurgitation. Pericardium No pericardial effusion. Prominent epicardial fat. Aorta Normal size aortic root and proximal ascending aorta. CONCLUSIONS Normal LV size and systolic function. Echo contrast was used to enhance image quality. Mild mitral annular calcification. Mild mitral and tricuspid regurgitation no pericardial effusion probable fat pad. No significant pulmonary hypertension Previewed by: Dr. Thiago Cam MD (Electronically Signed) Final Date: 05 August 2024 11:17
--- NOTE | 2024-08-05 13:07 | P.PN ---
Subjective Progress Note Date: 08/05/24 Principal diagnosis: Septic shock 08/04/2024 This is an 84-year-old white male known history of multiple medical problems including hypertension, dyslipidemia, history of peripheral vessel occlusive disease, patient was in the hospital from 07/06 till 07/26 after a mechanical fall. Underwent surgical treatment of T9-T10 fracture, T8 11 posterior stabilization and fusion T8/11 segmental instrumentation this was done by dr brooks on 07/23. Postoperatively patient had questionable seizures and he was placed on Keppra. Discharged to retirement with a Ko catheter and advised to have urology follow-up regarding his urinary retention. Patient was brought into the ER today mostly with symptoms of mental status change according to retirement staff, and low blood pressure. In the ER he was found to be hypotensive, did not improve with fluid boluses received few liters of fluid boluses, then the patient was placed on norepinephrine he is presently on 0.03 mcg/kg/min of norepinephrine. Patient was found to have leukocytosis with WBC count of 20.1, he had low hemoglobin of 10.5 BUN of 34 creatinine 2.77 and lactic acid of 3.1. X-ray showed mostly chronic changes and no evidence of acute pulmonary process. Urinalysis showed pyuria and bacteriuria patient had history of VRE urinary tract infection, hence he was placed empirically on daptomycin. I saw the patient in the ER, I kept him on norepinephrine I am arranging for the patient to transfer to the ICU and will check his blood cultures and urine cultures.Patient had negative testing for influenza RSV and SARS. Seen and examined today on 08/05/2024, patient remains in the ER, waiting for an ICU bed ability, patient seems to be comfortable, he is on room air, still requiring norepinephrine at 0.03 mcg/kg/min, receiving fluids 0.9 normal saline at 130 cc/h still receiving daptomycin and cefepime. Patient seems comfortable, his labs were reviewed, WBC count remains elevated 16.8 hemoglobin 9.7 basic metabolic profile is normal BUN is 38 creatinine 2.37, improving since admission. His kidney injury seems to be ATN related secondary to septic shock, baseline creatinine is near 1. His ultrasound of the kidneys showed no evidence of hydronephrosis. Echocardiogram this morning showed good LV function 60 to 65%, there was also mild mitral and tricuspid regurgitation with no evidence of pericardial effusion. No evidence of pulmonary hypertension. Objective - Vital Signs Vital signs: Vital Signs Temp 97 F L 08/04/24 11:19 Pulse 78 08/05/24 12:04 Resp 18 08/05/24 11:00 BP 105/49 08/05/24 11:00 Pulse Ox 96 08/05/24 11:00 FiO2 Intake & Output 08/04/24 08/05/24 08/05/24 18:59 06:59 18:59 Intake Total 28.851 Output Total 1700 Balance -1671.149 Weight 102.512 kg Intake: Intake, IV Titration 28.851 Amount Norepinephrine 32 mg In 28.851 Sodium Chloride 0.9% 218 ml @ 0.03 MCG/KG/MIN 1. 442 mls/hr IV .Q24H ONE Rx#:[id number] Output: Urine 1700 - Exam General: Revealed an 84-year-old white male in no distress Head: Atraumatic normocephalic Eyes: EOMI, no lid lag, anicteric sclera Mouth: no lip lesion, mucus membranes moist Cardiovascular: Distant S1-S2, no S3 gallop, no murmur. Lungs: Symmetrical chest expansion clear bilaterally no crackles rhonchi or wh eezes Abd: Obese soft nontender no guarding no rebound no guarding Ko catheter is noted Ext: No clubbing edema or cyanosis Neuro: Alert oriented x 3 no gross focal deficit Psych: Normal mood, affect and normal mental status examination - Labs CBC & Chem 7: 08/05/24 05:37 08/05/24 05:37 Labs: Abnormal Lab Results - Last 24 Hours (Table) 08/04/24 08/04/24 08/04/24 Range/Units 13:12 14:37 15:35 WBC (3.8-10.6) k/uL RBC (4.30-5.90) m/uL Hgb (13.0-17.5) gm/dL Hct (39.0-53.0) % Neutrophils # (1.3-7.7) k/uL Lymphocytes # (1.0-4.8) k/uL Chloride (98-107) mmol/L BUN (9-20) mg/dL Creatinine (0.66-1.25) mg/dL Glucose (74-99) mg/dL Plasma Lactic Acid Jordan 2.4 H* (0.7-2.0) mmol/L Calcium (8.4-10.2) mg/dL Magnesium (1.6-2.3) mg/dL Troponin I 0.045 H* (0.000-0.034) ng/mL Urine Protein 2+ H (Negative) Urine Blood Large H (Negative) Ur Leukocyte Esterase Large H (Negative) Urine RBC 50 H (0-5) /hpf Urine WBC >182 H (0-5) /hpf Calcium Oxalate Crystal Occasional H (None) /hpf Amorphous Sediment Few H (None) /hpf Urine Bacteria Moderate H (None) /hpf Urine Mucus Rare H (None) /hpf 08/04/24 08/04/24 08/05/24 Range/Units 18:05 18:05 05:37 WBC 16.8 H (3.8-10.6) k/uL RBC 3.12 L (4.30-5.90) m/uL Hgb 9.7 L (13.0-17.5) gm/dL Hct 29.7 L (39.0-53.0) % Neutrophils # 15.0 H (1.3-7.7) k/uL Lymphocytes # 0.9 L (1.0-4.8) k/uL Chloride (98-107) mmol/L BUN (9-20) mg/dL Creatinine (0.66-1.25) mg/dL Glucose (74-99) mg/dL Plasma Lactic Acid Jordan 2.3 H* (0.7-2.0) mmol/L Calcium (8.4-10.2) mg/dL Magnesium (1.6-2.3) mg/dL Troponin I 0.040 H* (0.000-0.034) ng/mL Urine Protein (Negative) Urine Blood (Negative) Ur Leukocyte Esterase (Negative) Urine RBC (0-5) /hpf Urine WBC (0-5) /hpf Calcium Oxalate Crystal (None) /hpf Amorphous Sediment (None) /hpf Urine Bacteria (None) /hpf Urine Mucus (None) /hpf 08/05/24 Range/Units 05:37 WBC (3.8-10.6) k/uL RBC (4.30-5.90) m/uL Hgb (13.0-17.5) gm/dL Hct (39.0-53.0) % Neutrophils # (1.3-7.7) k/uL Lymphocytes # (1.0-4.8) k/uL Chloride 111 H (98-107) mmol/L BUN 38 H (9-20) mg/dL Creatinine 2.37 H (0.66-1.25) mg/dL Glucose 114 H (74-99) mg/dL Plasma Lactic Acid Jordan (0.7-2.0) mmol/L Calcium 7.6 L (8.4-10.2) mg/dL Magnesium 2.5 H (1.6-2.3) mg/dL Troponin I (0.000-0.034) ng/mL Urine Protein (Negative) Urine Blood (Negative) Ur Leukocyte Esterase (Negative) Urine RBC (0-5) /hpf Urine WBC (0-5) /hpf Calcium Oxalate Crystal (None) /hpf Amorphous Sediment (None) /hpf Urine Bacteria (None) /hpf Urine Mucus (None) /hpf Assessment and Plan Assessment: Impression: Septic shock,Most likely secondary to VRE urinary tract infection History of VRE infection Acute kidney injury secondary to septic shock/acute tubular necrosis, improving with improvement in his overall clinical status and septic shock picture History of recent cervical fracture requiring surgery History of peripheral vessel occlusive disease dyslipidemia, on Lipitor History of benign essential hypertension, presently hypotensive mostly because of his septic shock History of degenerative joint disease History of obstructive sleep apnea syndrome History of underlying dementia History of seizure disorder maintained on Keppra Recommendation: Still awaiting for available bed in ICU Continue antibiotics/daptomycin/cefepime, adjust according to final cultures Continue norepinephrine and titrate accordingly Continue IV fluids Awaiting urine and blood cultures Reviewed results of echocardiogram GI and DVT prophylaxis Prognosis is relatively guarded Critical care time is over 30 minutes Patient is critically ill will continue to follow Time with Patient: Greater than 30
[2024-08-05] MEDS: NOREPINEPHRINE 32 MG in SODIUM CHLORIDE 0.9% 218 ML IV SCH (13:56)
--- NOTE | 2024-08-05 14:35 | P.PN ---
Subjective Progress Note Date: 08/05/24 84-year-old male with PMH of PVD status post stent of the right common iliac vein, HTN, HLD presents to the ED for altered mental status and hypotension. He was recently admitted from 07/06-07/26 after a mechanical fall, underwent open treatment T9-10 AO type B2 fracture, T8-11 posterior stabilized fusion, T8-11 segmental instrumentation, vertebral body augmentation and screw augmentation with cement T8 and T11 with Dr. Hicks on 07/23. Post operatively there was concerns for seizures and he was started on Keppra. He was discharged to SNF with a Ko catheter with instructions to attempt voiding trial while there and also with a Urology follow up. It is unclear if Ko catheter was changed while at SNF. In the ED he underwent extensive evaluation. T 97F, HR 85, RR 16, BP 83/37, 95% on 3L NC. CBC, Coag panel, CMP significant for WBC 20.1, RBC 3.43, Hg 10.5, Hct 32.1, INR 1.2, Cl 108, BUN 34, Cr 2.77, glu 109, Ca 7.8, alb 2.8. Lactic acid 3.1. Troponin 0.061. RSV/Flu/COVID negative. EKG showed sinus rhythm no ST or T wave changes. CXR showed chronic changes without evidence of acute pulmonary disease. Central line was placed in the right femoral groin. He was started on Levophed and Daptomycin and admitted to ICU for further workup and management. 08/05 Patient was seen and examined. Mentation improved. Maintained on Levophed at 0.03 mcg/kg/min. Antibiotics include Daptomycin and Cefepime. Troponin 0.045, 0.04. CBC and BMP significant for WBC 16.8, RBC 3.12, Hg 9.7, Hct 29.7, Cl 111, BUN 38, Cr 2.37, glu 114, Ca 7.6. Mag 2.5. Renal US no obstruction. Echo EF 60- 65%, mild MR/TR. UA large blood, large LE, > 182 WBCs. General: non toxic, no distress, appears at stated age Derm: warm, dry, venous stasis changes lower extremities Head: atraumatic, normocephalic, symmetric Eyes: EOMI, no lid lag, anicteric sclera Mouth: no lip lesion, mucus membranes moist Cardiovascular: S1S2 reg, no murmur Lungs: Clear to auscultation bilaterally, no rhonchi, no rales , no accessory muscle use Abd: Non distended. Non tender to palpation, + Ko Ext: no gross muscle atrophy, no edema, no contractures Neuro: No focal neurologic deficits Psych: Alert, oriented x 2 Based on my assessment of this patient, this patient meets a high complexity level of care. Acute metabolic encephalopathy likely due to below: Fall, Aspiration, Seizure precautions. Elevated HOB. Septic shock likely due to UTI: History of VRE. Continue Daptomycin 500 mg IV Q48H. ID added Cefepime 2g IV TID. Follow BCx, UCx. Telemetry monitoring. Levophed drip to maintain MAP > 65. NS at 130 cc/hr. Admit to ICU. ID consult. Type II NSTEMI: Troponins flat. ACS ruled out. Echo as above. Acute kidney injury: IV hydration as above. No obstruction on Renal bladder US. Hold Lisinopril. Nephrology on board. Normocytic anemia: No signs of active bleeding. Monitor. Resolved: Lactic acidosis, HypoMag T9 and T10 endplate fracture status post mechanical fall status post T8-T11 stabilization for T9/T10 endplate fractures with Dr. Hicks on 07/23 PVD status post stent of right common iliac vein Hypertension: Hold Lisinopril. Hyperlipidemia: Lipitor 20 mg PO QHS. BPH: Hold Flomax. Concerns for seizures: Keppra 500 mg PO BID. Dementia: Paxil 40 mg PO QD. Seroquel 12.5 mg PO QHS PRN. CODE STATUS: FULL CODE DVT Prophylaxis: Heparin SQ GI Prophylaxis: Protonix IV Designated medical POA if patient is not able to make medical decisions for themselves: Guardian Dispo: I have reviewed the following tanning consultant notes: ID, Nephrology, Pulmonary note I have reviewed the results of the following tests: CBC, CMP, Lactic acid, Trop x 2, Echo, UA I have ordered the following tests: CBC and BMP tomorrow AM. I have discussed the care of this patient with the following independent historian: I have independently interpreted the following test below: I have discussed the management of this patient with the following physician: Objective - Vital Signs Vital signs: Vital Signs Temp 98.6 F 08/05/24 13:57 Pulse 67 08/05/24 13:57 Resp 18 08/05/24 13:57 BP 129/52 08/05/24 13:57 Pulse Ox 99 08/05/24 13:57 FiO2 Intake & Output 08/04/24 08/05/24 08/05/24 18:59 06:59 18:59 Intake Total 28.851 Output Total 1700 Balance -1671.149 Weight 102.512 kg Intake: Intake, IV Titration .851 Amount Norepinephrine 32 mg In .851 Sodium Chloride 0.9% 218 ml @ 0.03 MCG/KG/MIN 1. 442 mls/hr IV .Q24H [facility] Rx#:[id number] Output: Urine 1700 - Labs CBC & Chem 7: 08/05/24 05:37 08/05/24 05:37 Labs: Abnormal Lab Results - Last 24 Hours (Table) 08/04/24 08/04/24 08/04/24 Range/Units 14:37 15:35 18:05 WBC (3.8-10.6) k/uL RBC (4.30-5.90) m/uL Hgb (13.0-17.5) gm/dL Hct (39.0-53.0) % Neutrophils # (1.3-7.7) k/uL Lymphocytes # (1.0-4.8) k/uL Chloride (98-107) mmol/L BUN (9-20) mg/dL Creatinine (0.66-1.25) mg/dL Glucose (74-99) mg/dL Plasma Lactic Acid Jordan 2.4 H* (0.7-2.0) mmol/L Calcium (8.4-10.2) mg/dL Magnesium (1.6-2.3) mg/dL Troponin I 0.045 H* 0.040 H* (0.000-0.034) ng/mL 08/04/24 08/05/24 08/05/24 Range/Units 18:05 05:37 05:37 WBC 16.8 H (3.8-10.6) k/uL RBC 3.12 L (4.30-5.90) m/uL Hgb 9.7 L (13.0-17.5) gm/dL Hct 29.7 L (39.0-53.0) % Neutrophils # 15.0 H (1.3-7.7) k/uL Lymphocytes # 0.9 L (1.0-4.8) k/uL Chloride 111 H (98-107) mmol/L BUN 38 H (9-20) mg/dL Creatinine 2.37 H (0.66-1.25) mg/dL Glucose 114 H (74-99) mg/dL Plasma Lactic Acid Jordan 2.3 H* (0.7-2.0) mmol/L Calcium 7.6 L (8.4-10.2) mg/dL Magnesium 2.5 H (1.6-2.3) mg/dL Troponin I (0.000-0.034) ng/mL
[2024-08-05 14:36] LABS: Glucose,Whole Blood 115 mg/dL (70-110)
[2024-08-05] MEDS ORDERED: Potassium Replacement Protocol 1 EACH MISC MISCELLANE PRN (19:09)
[2024-08-05] MEDS: POTASSIUM BICARBONATE/CIT AC 20 MEQ TABLET.EFF NG-TUBE SCH (20:49)
[2024-08-06 07:50] LABS: African American GFR (CKD) 50 (>60 ml/min/1.73 sqM); Anion Gap 7 mmol/L; Blood Urea Nitrogen 29 mg/dL (9-20); Calcium 7.5 mg/dL (8.4-10.2); Carbon Dioxide 23 mmol/L (22-30); Chloride 113 mmol/L (98-107); Glucose 100 mg/dL (74-99); Magnesium 2.2 mg/dL (1.6-2.3); Non-African American GFR(CKD) 43 (>60 ml/min/1.73 sqM); Potassium 3.8 mmol/L (3.5-5.1); Sodium 143 mmol/L (137-145)
[2024-08-06 08:28] LABS: HCT 27.4 % (39.0-53.0); HGB 9.2 gm/dL (13.0-17.5); MCH 31.5 pg (25.0-35.0); MCHC 33.7 g/dL (31.0-37.0); MCV 93.6 fL (80.0-100.0); Mean Platelet Volume 8.5; Platelet Count 179 k/uL (150-450); RBC 2.92 m/uL (4.30-5.90); RDW 13.4 % (11.5-15.5); WBC 13.5 k/uL (3.8-10.6)
[2024-08-06] MEDS: SODIUM CHLORIDE 0.9% 1,000 ML IV SCH (09:23)
--- NOTE | 2024-08-06 10:02 | P.PN ---
Subjective Patient is seen in follow-up for acute kidney injury. Renal function improving. On IV fluids. Oral intake fair. Vital signs are stable. General: No acute distress. HEENT: Head exam is unremarkable. LUNGS: No audible rhonchi or wheezes. HEART: Rate and Rhythm are regular. ABDOMEN: Nontender. EXTREMITITES: No edema. Objective - Vital Signs Vital signs: Vital Signs Temp 98.8 F 08/06/24 08:00 Pulse 80 08/06/24 09:00 Resp 22 08/06/24 09:00 BP 128/56 08/06/24 09:00 Pulse Ox 93 L 08/06/24 09:00 FiO2 Intake & Output 08/05/24 08/06/24 08/06/24 18:59 06:59 18:59 Intake Total 6654.213 7925 335 Output Total 2150 1130 395 Balance -999.611 430 -60 Weight 102.512 kg 105.6 kg Intake: IV 520 1560 335 Sodium Chloride 0.9% 1, 520 1560 335 000 ml @ 130 mls/hr IV . Q7H42M [facility] Rx#:[id number] Intake, IV Titration 30.389 Amount Norepinephrine 32 mg In 28.851 Sodium Chloride 0.9% 218 ml @ 0.03 MCG/KG/MIN 1. 442 mls/hr IV .Q24H ONE Rx#:[id number] Norepinephrine 32 mg In 1.538 Sodium Chloride 0.9% 218 ml @ 0.03 MCG/KG/MIN 1. 442 mls/hr IV .Q24H [facility] Rx#:[id number] Oral 600 Output: Urine 2150 1130 395 Other: Voiding Method Indwelling Catheter Indwelling Catheter Indwelling Catheter # Bowel Movements 2 - Labs CBC & Chem 7: 08/06/24 06:22 08/06/24 06:22 Labs: Abnormal Lab Results - Last 24 Hours (Table) 08/05/24 08/06/24 08/06/24 Range/Units 14:36 06:22 06:22 WBC 13.5 H (3.8-10.6) k/uL RBC 2.92 L (4.30-5.90) m/uL Hgb 9.2 L (13.0-17.5) gm/dL Hct 27.4 L (39.0-53.0) % Chloride 113 H (98-107) mmol/L BUN 29 H (9-20) mg/dL Creatinine 1.46 H (0.66-1.25) mg/dL Glucose 100 H (74-99) mg/dL POC Glucose (mg/dL) 115 H (70-110) mg/dL Calcium 7.5 L (8.4-10.2) mg/dL Microbiology - Last 24 Hours (Table) 08/04/24 11:50 Blood Culture Gram Stain - Preliminary Blood Blood Culture - Preliminary Molecular ID Assessment and Plan Plan: Assessment: 1. Acute kidney injury secondary to ATN secondary to septic shock. Baseline creatinine near 1 and was elevated at 2.7 this admission -1.46 today. No hydronephrosis noted on kidney ultrasound. 2. Septic shock. Blood culture positive for gram-negative bacilli. Source possibly UTI. On IV antibiotics. ID following. 3. Hypomagnesemia from poor intake. Replaced. Improved. 4. Diabetes mellitus. Plan: Maintain IV fluids. Decrease rate to 75 cc an hour. Follow-up cultures. Avoid nephrotoxins. Continue to monitor renal function and urine output.
[2024-08-06] MEDS: POTASSIUM CHLORIDE ER 20 MEQ TAB.ER PO STA (10:19)
--- NOTE | 2024-08-06 11:37 | P.CNOR ---
History of Present Illness - HPI Consult date: 08/06/24 Requesting physician: Ladan Burroughs Consult reason: other (Post surgical elizabet still) History of present illness: Patient is an 84-year-old male who presented to the hospital on 08/04/2024 due to altered mental status and hypotension. Patient has been at subacute rehab over the past couple weeks. Patient was found by staff at the custodial to have altered mental state as well as hypotension. Patient brought to the ER for evaluation. Patient does have a past medical history significant for hypertension, hyperlipidemia, sleep apnea, recurrent UTIs. Patient was recently admitted from 07/06/2410 after mechanical fall and underwent open treatment T9-10 AO type B2 fracture and T8-T11 posterior stabilized fusion by Dr. Hicks on 07/23/24. Patient was discharged after that visit to subacute rehab where he has been residing. Orthopedics has been consulted this morning from pulmonology for staple removal from spine as patient is 2 weeks today out from spine surgery. Patient was seen at bedside this morning in the ICU with nursing present during encounter. Patient states he has having some pain to the back at this time however he feels he is progressing since surgery was performed 2 weeks ago. Patient says the pain in his back is controlled with oral medicat ion. Patient says he has been trying to work with therapy daily to increase strength in his lower extremities. Patient denies any other spine complaints at this time. Past Medical History Past Medical History: Asthma, Cancer, COPD, Diabetes Mellitus, Deep Vein Thrombosis (DVT), Hearing Disorder / Deafness, Hyperlipidemia, Hypertension, Osteoarthritis (OA), Prostate Disorder, Respiratory Disorder, Sleep Apnea/CPAP/BIPAP Additional Past Medical History / Comment(s): cpap, fell in october 2013 and fractured left hip, periodontal infection that delayed hip surgery. blisters on cami legs wrapped-cl home care monitors History of Any Multi-Drug Resistant Organisms: VRE Year Discovered:: 02/06/22 VRE MDRO Source:: Urine Past Surgical History: Back Surgery, Cholecystectomy, Joint Replacement, Orthopedic Surgery Additional Past Surgical History / Comment(s): brain tumor removed as a teen, cami hip replacement, back surgery for t 9-10 fracture s/p fall Past Anesthesia/Blood Transfusion Reactions: No Reported Reaction Additional Past Anesthesia/Blood Transfusion Reaction / Comm: very severe sleep apnea per patient Past Psychological History: Anxiety, Depression Additional Psychological History / Comment(s): Pt resides at [facility]. He has a couple of walkers but does not usually use them. He states he drives. Smoking Status: Former smoker Past Alcohol Use History: None Reported Additional Past Alcohol Use History / Comment(s): Pt started smoking cigars in 3 and quit smoking them in 1998 Past Drug Use History: None Reported - Past Family History Brother(s) Family Medical History: Cancer Additional Family Medical History / Comment(s): kidney,liver Medications and Allergies Home Medications Medication Instructions Recorded Confirmed Type PARoxetine HCL [Paxil] 40 mg PO DAILY 06/08/14 08/04/24 History Folic Acid 1 mg PO DAILY 07/12/21 08/04/24 History Tamsulosin [Flomax] 0.4 mg PO DAILY 07/12/21 08/04/24 History lisinopriL 2.5 mg PO DAILY 04/23/23 08/04/24 History Ferrous Sulfate [Iron (65 MG 325 mg PO DAILY 07/06/24 08/04/24 History Elemental)] Acetaminophen Tab [Tylenol] 650 mg PO Q6HR PRN tab 07/26/24 08/04/24 Rx Atorvastatin [Lipitor] 20 mg PO HS #0 tab 07/26/24 08/04/24 Rx HYDROcodone/APAP 10-325MG [[place] 1 each PO Q6H PRN #12 tab 07/26/24 08/04/24 Rx 10-325] Magnesium Hydroxide [Milk of 2,400 mg PO DAILY PRN ml 07/26/24 08/04/24 Rx Magnesia] QUEtiapine [SEROquel] 12.5 mg PO HS tab 07/26/24 08/04/24 Rx Sennosides [Senokot] 8.6 mg PO DAILY tab 07/26/24 08/04/24 Rx Albuterol Nebulized [Ventolin 1.25 mg INHALATION RT-TID 08/04/24 08/04/24 History Nebulized (Accuneb)] Dermaseptin 1 applic TOPICAL BID 08/04/24 08/04/24 History Dermaseptin 1 applic TOPICAL BID PRN 08/04/24 08/04/24 History Naloxone HCl [Narcan] 4 mg NASAL DAILY PRN 08/04/24 08/04/24 History Saccharomyces Boulardii 250 mg PO BID 08/04/24 08/04/24 History [Saccharomycin Df] Sennosides-Docusate Sodium 2 tab PO DAILY PRN 08/04/24 08/04/24 History [Senokot-S] levETIRAcetam [Keppra] 500 mg PO BID 08/04/24 08/04/24 History sitaGLIPtin [Januvia] 100 mg PO DAILY 08/04/24 08/04/24 History Allergies Allergy/AdvReac Type Severity Reaction Status Date / Time Penicillins Allergy Rash/Hives Verified 08/04/24 12:08 Physical Examination Focused exam: Dressing was taken down over the thoracic spine. There are multiple incisions with elizabet well aligned and intact. Negative for any active drainage prior to removal. [place] were removed at bedside. <2 cc serosanguineous drainage once elizabet removed. Negative for any fluctuance. Some erythema present diffusely once dressing was taken down. Negative for any purulence. New dressing was placed over incisions. There is some generalized tenderness to palpation near incisions over the spine. Nontender to palpation on rest of spine exam. Patient is able to turn to each side with some help while resting in bed. 4/5 in all major motor groups in the right lower extremity. There is some limited range of motion in bilateral knees and hips in flexion so extension secondary to referred pain and stiffness of the back. 4-/5 in all major motor groups in left lower extremity. Radial pulse intact, 2+ bilaterally. Cap refill under 3 seconds in digits of upper extremities. Negative Mendel bilaterally. Negative clonus bilaterally. Negative Marcy bilaterally. Results - Labs Labs: Abnormal Lab Results - Last 24 Hours (Table) 08/05/24 08/06/24 08/06/24 Range/Units 14:36 06:22 06:22 WBC 13.5 H (3.8-10.6) k/uL RBC 2.92 L (4.30-5.90) m/uL Hgb 9.2 L (13.0-17.5) gm/dL Hct 27.4 L (39.0-53.0) % Chloride 113 H (98-107) mmol/L BUN 29 H (9-20) mg/dL Creatinine 1.46 H (0.66-1.25) mg/dL Glucose 100 H (74-99) mg/dL POC Glucose (mg/dL) 115 H (70-110) mg/dL Calcium 7.5 L (8.4-10.2) mg/dL Microbiology - Last 24 Hours (Table) 08/04/24 11:50 Blood Culture Gram Stain - Preliminary Blood Blood Culture - Preliminary Molecular ID H & H 08/04/24 08/05/24 08/06/24 Range/Units 11:50 05:37 06:22 Hgb 10.5 L 9.7 L 9.2 L (13.0-17.5) gm/dL Hct 32.1 L 29.7 L 27.4 L (39.0-53.0) % Coagulation 08/04/24 Range/Units 11:50 INR 1.2 H (<1.2) Result Diagrams: 08/06/24 06:22 08/06/24 06:22 Assessment and Plan Assessment: Ankylosis of thoracic spine (Acute) Fracture of body of posterior thoracic vertebra (Acute) Closed fracture of thoracic vertebral body (Acute) Thoracic spine fracture (Acute) Encephalopathy (Acute) Fall (Acute) Postop day 14 status post: OPEN TREATMENT T9-10 AO TYPE B2 FRACTURE, UNSTABLE THROUGH AN ANKYLOSED SPINE T8-T11 POSTERIOR STABILIZED FUSION Plan: Plan: 1. Mid back pain; low back pain; T9/T10 endplate fractures; ankylosis of the thoracic spine -surgery performed 07/23/24open treatment T9-10 AO type B2 fracture, unstable through an ankylosed spine and T8-T11 posterior stabilized fusion -patient at bedside this morning in the ICU with dressings and elizabet present over thoracic spine. Elizabet removed at bedside this morning and new dressing placed over incisions. Incisions appear to be healing well at this time. Maintain dressings clean, dry. Patient may weight-bear as tolerated with walker and TLSO brace on while up and about with therapy. Pain medication as needed. Appreciate other specialty recommendations. Patient is stable from an orthopedicspine standpoint for discharge. At this time, orthopedics will be si gning off. Please do not hesitate to contact us for any further questions. 2. Appreciate medical, pulm , ID management 3. Pain management - Tylenol 4. DVT prophylaxis -Heparin; SCDs and DONNA hose 5. GI prophylaxis - protonix 6. PT/OT -TLSO brace at bedside. Patient may weight-bear as tolerated with walker and assistance with TLSO brace on when up and about. Encouraged to perform gentle range of motion exercises while resting in bed. 7. Encourage incentive spirometer use 8. Appreciate consult Time with Patient: Less than 30
[2024-08-06 12:13] LABS: Glucose,Whole Blood 94 mg/dL (70-110)
--- NOTE | 2024-08-06 12:19 | P.PN ---
Subjective Progress Note Date: 08/06/24 Principal diagnosis: Septic shock 08/04/2024 This is an 84-year-old white male known history of multiple medical problems including hypertension, dyslipidemia, history of peripheral vessel occlusive disease, patient was in the hospital from 07/06 till 07/26 after a mechanical fall. Underwent surgical treatment of T9-T10 fracture, T8 11 posterior stabilization and fusion T8/11 segmental instrumentation this was done by dr brooks on 07/23. Postoperatively patient had questionable seizures and he was placed on Keppra. [facility] to prison with a Ko [facility] and advised to have urology follow-up regarding his urinary retention. Patient was brought into the ER today mostly with symptoms of mental status change according to prison staff, and low blood pressure. In the ER he was found to be hypotensive, did not improve with fluid boluses received few liters of fluid boluses, then the patient was placed on norepinephrine he is presently on 0.03 mcg/kg/min of norepinephrine. Patient was found to have leukocytosis with WBC count of 20.1, he had low hemoglobin of 10.5 BUN of 34 creatinine 2.77 and lactic acid of 3.1. X-ray showed mostly chronic changes and no evidence of acute pulmonary process. Urinalysis showed pyuria and bacteriuria patient had history of VRE urinary tract infection, hence he was placed empirically on daptomycin. I saw the patient in the ER, I kept him on norepinephrine I am arranging for the patient to transfer to the ICU and will check his blood cultures and urine cultures.Patient had negative testing for influenza RSV and SARS. Seen and examined today on 08/05/2024, patient remains in the ER, waiting for an ICU bed ability, patient seems to be comfortable, he is on room air, still requiring norepinephrine at 0.03 mcg/kg/min, receiving fluids 0.9 normal saline at 130 cc/h still receiving daptomycin and cefepime. Patient seems comfortable, his labs were reviewed, WBC count remains elevated 16.8 hemoglobin 9.7 basic metabolic profile is normal BUN is 38 creatinine 2.37, improving since admission. His kidney injury seems to be ATN related secondary to septic shock, baseline creatinine is near 1. His ultrasound of the kidneys showed no evidence of hydronephrosis. Echocardiogram this morning showed good LV function 60 to 65%, there was also mild mitral and tricuspid regurgitation with no evidence of pericardial effusion. No evidence of pulmonary hypertension. Seen today on 08/06/2024, remains in the ICU, patient is off norepinephrine, hemodynamically stable, on room air, receiving IV fluid at 0.9 normal saline 75 cc/h. Blood cultures are positive for Proteus species. E. coli is noted in the urine. Patient remains empirically on broad-spectrum antibiotics, and considering his hemodynamic stability considering he has no active pulmonary issues at this point, I will continue antibiotics, and I will arrange for him to be transferred to regular medical floor. WBC count today is improving 13.5 hemoglobin is 9.2 electrolytes are normal BUN is 29 creatinine much better today down to 1.46 from 2.37 yesterday. Objective - Vital Signs Vital signs: Vital Signs Temp 98.8 F 08/06/24 08:00 Pulse 66 08/06/24 11:00 Resp 61 H 08/06/24 11:00 BP 131/53 08/06/24 11:00 Pulse Ox 97 08/06/24 11:00 FiO2 Intake & Output 08/05/24 08/06/24 08/06/24 18:59 06:59 18:59 Intake Total 2734.770 2734 335 Output Total 2150 1130 395 Balance -999.611 430 -60 Weight 102.512 kg 105.6 kg Intake: IV 520 1560 335 Sodium Chloride 0.9% 1, 520 1560 335 000 ml @ 130 mls/hr IV . Q7H42M [facility] Rx#:[id number] Intake, IV Titration 30.389 Amount Norepinephrine 32 mg In 28.851 Sodium Chloride 0.9% 218 ml @ 0.03 MCG/KG/MIN 1. 442 mls/hr IV .Q24H [facility] Rx#:[id number] Norepinephrine 32 mg In 1.538 Sodium Chloride 0.9% 218 ml @ 0.03 MCG/KG/MIN 1. 442 mls/hr IV .Q24H [facility] Rx#:[id number] Oral 600 Output: Urine 2150 1130 395 Other: Voiding Method Indwelling Catheter Indwelling Catheter Indwelling Catheter # Bowel Movements 2 1 - Exam General: Revealed an 84-year-old white male in no distress, on room air Head: Atraumatic normocephalic Eyes: EOMI, no lid lag, anicteric sclera Mouth: no lip lesion, mucus membranes moist Cardiovascular: Distant S1-S2, no S3 gallop, no murmur. Lungs: Symmetrical chest expansion clear bilaterally no crackles rhonchi or wheezes Abd: Obese soft nontender no guarding no rebound no guarding Ko catheter is noted Ext: No clubbing edema or cyanosis Neuro: Alert oriented x 3 no gross focal deficit Psych: Normal mood, affect and normal mental status examination - Labs CBC & Chem 7: 08/06/24 06:22 08/06/24 06:22 Labs: Abnormal Lab Results - Last 24 Hours (Table) 08/05/24 08/06/24 08/06/24 Range/Units 14:36 06:22 06:22 WBC 13.5 H (3.8-10.6) k/uL RBC 2.92 L (4.30-5.90) m/uL Hgb 9.2 L (13.0-17.5) gm/dL Hct 27.4 L (39.0-53.0) % Chloride 113 H (98-107) mmol/L BUN 29 H (9-20) mg/dL Creatinine 1.46 H (0.66-1.25) mg/dL Glucose 100 H (74-99) mg/dL POC Glucose (mg/dL) 115 H (70-110) mg/dL Calcium 7.5 L (8.4-10.2) mg/dL Microbiology - Last 24 Hours (Table) 08/04/24 11:50 Blood Culture Gram Stain - Preliminary Blood Blood Culture - Preliminary Molecular ID Assessment and Plan Assessment: Impression: Septic shock, Proteus bacteremia in the blood final culture is pending final urine culture is pending patient remains empirically on broad- spectrum antibiotic including daptomycin and cefepime infectious disease to address antibiotics later today. History of VRE infection Acute kidney injury secondary to septic shock/acute tubular necrosis, improving with improvement in his overall clinical status and septic shock picture History of recent cervical fracture requiring surgery History of peripheral vessel occlusive disease dyslipidemia, on Lipitor History of benign essential hypertension, presently hypotensive mostly because of his septic shock History of degenerative joint disease History of obstructive sleep apnea syndrome History of underlying dementia History of seizure disorder maintained on Keppra Recommendation: Transfer patient to regular medical floor Continue antibiotics, infectious disease to address adjustment of antibiotics Continue IV fluids, discontinue norepinephrine Continue IV fluids Awaiting final urine and blood cultures GI and DVT prophylaxis Prognosis is relatively guarded Will continue to follow. Time with Patient: Less than 30
--- NOTE | 2024-08-06 12:25 | P.PN ---
Subjective Progress Note Date: 08/06/24 84-year-old male with PMH of PVD status post stent of the right common iliac vein, HTN, HLD presents to the ED for altered mental status and hypotension. He was recently admitted from 07/06-07/26 after a mechanical fall, underwent open treatment T9-10 AO type B2 fracture, T8-11 posterior stabilized fusion, T8-11 segmental instrumentation, vertebral body augmentation and screw augmentation with cement T8 and T11 with Dr. Hicks on 07/23. Post operatively there was concerns for seizures and he was started on Keppra. He was discharged to SNF with a Ko catheter with instructions to attempt voiding trial while there and also with a Urology follow up. It is unclear if Ko catheter was changed while at SNF. In the ED he underwent extensive evaluation. T 97F, HR 85, RR 16, BP 83/37, 95% on 3L NC. CBC, Coag panel, CMP significant for WBC 20.1, RBC 3.43, Hg 10.5, Hct 32.1, INR 1.2, Cl 108, BUN 34, Cr 2.77, glu 109, Ca 7.8, alb 2.8. Lactic acid 3.1. Troponin 0.061. RSV/Flu/COVID negative. EKG showed sinus rhythm no ST or T wave changes. CXR showed chronic changes without evidence of acute pulmonary disease. Central line was placed in the right femoral groin. He was started on Levophed and Daptomycin and admitted to ICU for further workup and management. ID consulted, Cefepime added. BCx prelim growing Proteus. 08/06 Patient was seen and examined. Mentation improved. Levophed weaned off. Antibiotics include Daptomycin and Cefepime. BCx growing prelim Proteus. BMP significant for Cl 113, BUN 29, Cr 1.46, glu 100, Ca 7.5. Mag 2.2. General: non toxic, no distress, appears at stated age Derm: warm, dry, venous stasis changes lower extremities Head: atraumatic, normocephalic, symmetric Eyes: EOMI, no lid lag, anicteric sclera Mouth: no lip lesion, mucus membranes moist Cardiovascular: S1S2 reg, no murmur Lungs: Clear to auscultation bilaterally, no rhonchi, no rales , no accessory muscle use Abd: Non distended. Non tender to palpation, + Ko Ext: no gross muscle atrophy, no edema, no contractures Neuro: No focal neurologic deficits Psych: Alert, oriented x 2 Based on my assessment of this patient, this patient meets a high complexity level of care. Acute metabolic encephalopathy likely due to below: Fall, Aspiration, Seizure precautions. Elevated HOB. Septic shock due to Proteus bacteremia: Likely source urine. Discontinue Daptomycin and continue Cefepime 1g IV BID. Follow BCx, UCx. Telemetry monitoring. Levophed drip to maintain MAP > 65. Decrease NS at 75 cc/hr. ID on board. Type II NSTEMI: Troponins flat. ACS ruled out. Echo as above. Acute kidney injury: IV hydration as above. No obstruction on Renal bladder US. Hold Lisinopril. Nephrology on board. Normocytic anemia: No signs of active bleeding. Monitor. Resolved: Lactic acidosis, HypoMag T9 and T10 endplate fracture status post mechanical fall status post T8-T11 stabilization for T9/T10 endplate fractures with Dr. Hicks on 07/23 PVD status post stent of right common iliac vein Hypertension: Hold Lisinopril. Hyperlipidemia: Lipitor 20 mg PO QHS. BPH: Hold Flomax. Concerns for seizures: Keppra 500 mg PO BID. Dementia: Paxil 40 mg PO QD. Seroquel 12.5 mg PO QHS PRN. CODE STATUS: FULL CODE DVT Prophylaxis: Heparin SQ GI Prophylaxis: Protonix IV Designated medical POA if patient is not able to make medical decisions for themselves: Guardian Dispo: I have reviewed the following life skills consultant notes: Nephrology, Pulmonary note I have reviewed the results of the following tests: BCx, BMP I have ordered the following tests: CBC and BMP tomorrow AM. I have discussed the care of this patient with the following independent historian: I have independently interpreted the following test below: I have discussed the management of this patient with the following physician: Objective - Vital Signs Vital signs: Vital Signs Temp 98.4 F 08/06/24 04:00 Pulse 71 08/06/24 07:00 Resp 23 08/06/24 07:00 BP 125/53 08/06/24 07:00 Pulse Ox 93 L 08/06/24 07:00 FiO2 Intake & Output 08/05/24 08/06/24 08/06/24 18:59 06:59 18:59 Intake Total 1998.234 7360 130 Output Total 2150 1130 50 Balance -999.611 430 80 Weight 102.512 kg 105.6 kg Intake: IV 520 1560 130 Sodium Chloride 0.9% 1, 520 1560 130 000 ml @ 130 mls/hr IV . Q7H42M [facility] Rx#:[id number] Intake, IV Titration 30.389 Amount Norepinephrine 32 mg In 28.851 Sodium Chloride 0.9% 218 ml @ 0.03 MCG/KG/MIN 1. 442 mls/hr IV .Q24H [facility] Rx#:[id number] Norepinephrine 32 mg In 1.538 Sodium Chloride 0.9% 218 ml @ 0.03 MCG/KG/MIN 1. 442 mls/hr IV .Q24H [facility] Rx#:[id number] Oral 600 Output: Urine 2150 1130 50 Other: Voiding Method Indwelling Catheter Indwelling Catheter # Bowel Movements 2 - Labs CBC & Chem 7: 08/06/24 06:22 08/06/24 06:22 Labs: Abnormal Lab Results - Last 24 Hours (Table) 08/05/24 08/06/24 Range/Units 14:36 06:22 Chloride 113 H (98-107) mmol/L BUN 29 H (9-20) mg/dL Creatinine 1.46 H (0.66-1.25) mg/dL Glucose 100 H (74-99) mg/dL POC Glucose (mg/dL) 115 H (70-110) mg/dL Calcium 7.5 L (8.4-10.2) mg/dL Microbiology - Last 24 Hours (Table) 08/04/24 11:50 Blood Culture Gram Stain - Preliminary Blood Blood Culture - Preliminary Molecular ID
[2024-08-06 15:04] VITALS: BMI 32.4
--- NOTE | 2024-08-06 15:54 | P.PN ---
Subjective Progress Note Date: 08/05/24 Principal diagnosis: Reason for follow-up is sepsis secondary catheter associated UTI patient is a 84-year-old male with a past medical history significant for hypertension hyperlipidemia sleep apnea did have a history of recurrent urinary tract infection patient has been sent to the hospital from the local custodial for evaluation of mental status changes patient has been diagnosed with sepsis secondary to catheter associated UTI with initial admission to the [facility]. On today's evaluation that is 08/05/2024,the patient denies any fever or any chills, patient is breathing comfortably on 2 L nasal cannula oxygen, the patient denies chest pain shortness of breath and no significant cough, patient denies abdominal pain, no nausea vomiting or diarrhea. Patient white count is down to 16.8 creatinine is 2.37 Objective - Vital Signs Vital signs: Vital Signs Temp 98.8 F 08/06/24 08:00 Pulse 70 08/06/24 10:00 Resp 23 08/06/24 10:00 BP 114/53 08/06/24 10:00 Pulse Ox 97 08/06/24 10:00 FiO2 Intake & Output 08/05/24 08/06/24 08/06/24 18:59 06:59 18:59 Intake Total 7003.157 1934 335 Output Total 2150 1130 395 Balance -999.611 430 -60 Weight 102.512 kg 105.6 kg Intake: IV 520 1560 335 Sodium Chloride 0.9% 1, 520 1560 335 000 ml @ 130 mls/hr IV . Q7H42M [facility] Rx#:[id number] Intake, IV Titration 30.389 Amount Norepinephrine 32 mg In 28.851 Sodium Chloride 0.9% 218 ml @ 0.03 MCG/KG/MIN 1. 442 mls/hr IV .Q24H [facility] Rx#:[id number] Norepinephrine 32 mg In 1.538 Sodium Chloride 0.9% 218 ml @ 0.03 MCG/KG/MIN 1. 442 mls/hr IV .Q24H [facility] Rx#:[id number] Oral 600 Output: Urine 2150 1130 395 Other: Voiding Method Indwelling Catheter Indwelling Catheter Indwelling Catheter # Bowel Movements 2 - Exam GENERAL DESCRIPTION: An elderly male lying in bed in no distress RESPIRATORY SYSTEM: Unlabored breathing , decreased breath sounds at bases HEART: S1 S2 regular rate and rhythm , ABDOMEN: Soft , no tenderness EXTREMITIES: No edema feet - Labs CBC & Chem 7: 08/06/24 06:22 08/06/24 06:22 Labs: Abnormal Lab Results - Last 24 Hours (Table) 08/05/24 08/06/24 08/06/24 Range/Units 14:36 06:22 06:22 WBC 13.5 H (3.8-10.6) k/uL RBC 2.92 L (4.30-5.90) m/uL Hgb 9.2 L (13.0-17.5) gm/dL Hct 27.4 L (39.0-53.0) % Chloride 113 H (98-107) mmol/L BUN 29 H (9-20) mg/dL Creatinine 1.46 H (0.66-1.25) mg/dL Glucose 100 H (74-99) mg/dL POC Glucose (mg/dL) 115 H (70-110) mg/dL Calcium 7.5 L (8.4-10.2) mg/dL Microbiology - Last 24 Hours (Table) 08/04/24 11:50 Blood Culture Gram Stain - Preliminary Blood Blood Culture - Preliminary Molecular ID Assessment and Plan (1) Sepsis Current Visit: Yes Status: Acute Code(s): A41.9 - SEPSIS, UNSPECIFIED ORGANISM SNOMED Code(s): 05870295 (2) Catheter-associated urinary tract infection Current Visit: Yes Status: Acute Code(s): T83.511A - I/I REACT D/T INDWELLING URETHRAL CATHETER, INIT; N39.0 - URINARY TRACT INFECTION, SITE NOT SPECIFIED SNOMED Code(s): 639590092 Plan: 1patient presented to hospital with sepsis in this patient who did have hypotension elevated white count source is likely catheter associated UTI as no other obvious focus of infection no evidence of pneumonia abdominal pain soft no evidence of any cellulitis or joint swelling will need to cover for the enteric gram-negative to the likely pathogen however patient did have last urine culture positive for VRE 2-patient to continue with daptomycin and cefepime while waiting for the culture to finalize Dictation was produced using [employer] dictation software. please excuse any grammatical, word or spelling errors. Time with Patient: Less than 30
--- NOTE | 2024-08-06 15:55 | P.PN ---
Subjective Progress Note Date: 08/06/24 Principal diagnosis: Reason for follow-up is sepsis secondary catheter associated UTI patient is a 84-year-old male with a past medical history significant for hypertension hyperlipidemia sleep apnea did have a history of recurrent urinary tract infection patient has been sent to the hospital from the local alf for evaluation of mental status changes patient has been diagnosed with sepsis secondary to catheter associated UTI with initial admission to the [facility]. On today's evaluation that is 08/06/2024,the patient remains to be afebrile, patient is on room air not requiring supplemental oxygen and denies any shortness of breath no chest pain or cough.Patient denies having any nausea or vomiting, no abdominal pain and no diarrhea has been reported Patient white count is down to 13.5 creatinine 1.46 blood culture with the Proteus, no urine culture done Objective - Vital Signs Vital signs: Vital Signs Temp 98.8 F 08/06/24 08:00 Pulse 68 08/06/24 13:00 Resp 17 08/06/24 12:00 BP 146/108 08/06/24 12:00 Pulse Ox 97 08/06/24 13:00 FiO2 Intake & Output 08/05/24 08/06/24 08/06/24 18:59 06:59 18:59 Intake Total 2454.160 4875 335 Output Total 2150 1130 395 Balance -999.611 430 -60 Weight 102.512 kg 105.6 kg Intake: IV 520 1560 335 Sodium Chloride 0.9% 1, 520 1560 335 000 ml @ 130 mls/hr IV . Q7H42M [facility] Rx#:[id number] Intake, IV Titration 30.389 Amount Norepinephrine 32 mg In 28.851 Sodium Chloride 0.9% 218 ml @ 0.03 MCG/KG/MIN 1. 442 mls/hr IV .Q24H [facility] Rx#:[id number] Norepinephrine 32 mg In 1.538 Sodium Chloride 0.9% 218 ml @ 0.03 MCG/KG/MIN 1. 442 mls/hr IV .Q24H [facility] Rx#:[id number] Oral 600 Output: Urine 2150 1130 395 Other: Voiding Method Indwelling Catheter Indwelling Catheter Indwelling Catheter # Bowel Movements 2 1 - Exam GENERAL DESCRIPTION: An elderly male lying in bed in no distress RESPIRATORY SYSTEM: Unlabored breathing , decreased breath sounds at bases HEART: S1 S2 regular rate and rhythm , ABDOMEN: Soft , no tenderness EXTREMITIES: No edema feet - Labs CBC & Chem 7: 08/06/24 06:22 08/06/24 06:22 Labs: Abnormal Lab Results - Last 24 Hours (Table) 08/05/24 08/06/24 08/06/24 Range/Units 14:36 06:22 06:22 WBC 13.5 H (3.8-10.6) k/uL RBC 2.92 L (4.30-5.90) m/uL Hgb 9.2 L (13.0-17.5) gm/dL Hct 27.4 L (39.0-53.0) % Chloride 113 H (98-107) mmol/L BUN 29 H (9-20) mg/dL Creatinine 1.46 H (0.66-1.25) mg/dL Glucose 100 H (74-99) mg/dL POC Glucose (mg/dL) 115 H (70-110) mg/dL Calcium 7.5 L (8.4-10.2) mg/dL Microbiology - Last 24 Hours (Table) 08/04/24 11:50 Blood Culture Gram Stain - Preliminary Blood Blood Culture - Preliminary Proteus mirabilis Molecular ID Assessment and Plan (1) Sepsis Current Visit: Yes Status: Acute Code(s): A41.9 - SEPSIS, UNSPECIFIED ORGANISM SNOMED Code(s): 62463177 (2) Catheter-associated urinary tract infection Current Visit: Yes Status: Acute Code(s): T83.511A - I/I REACT D/T INDWELLING URETHRAL CATHETER, INIT; N39.0 - URINARY TRACT INFECTION, SITE NOT SPECIFIED SNOMED Code(s): 328793263 (3) Bacteremia Current Visit: Yes Status: Acute Code(s): R78.81 - BACTEREMIA SNOMED Code(s): 8393358 Plan: 1patient presented to hospital with sepsis in this patient who did have hypotension elevated white count source is likely catheter associated UTI as no other obvious focus of infection no evidence of pneumonia abdominal pain soft no evidence of any cellulitis or joint swelling will need to cover for the enteric gram-negative to the likely pathogen however patient did have last urine culture positive for VRE 2-patient with a positive blood culture with Proteus source is likely urine unfortunately no urine culture more than patient to continue cefepime daptomycin has been discontinued Dictation was produced using [employer] software. please excuse any grammatical, word or spelling errors. Time with Patient: Less than 30
[2024-08-07] MEDS: CEFEPIME 2 GM in SODIUM CHLORIDE 0.9% 100 ML IVPB SCH (01:56)
[2024-08-07 09:38] LABS: BUN/Creat Ratio 17.67 Ratio (12.00-20.00); Blood Urea Nitrogen 21.2 mg/dL (9.0-27.0); Calcium 7.9 mg/dL (8.7-10.3); Carbon Dioxide 20.8 mmol/L (21.6-31.8); Chloride 114 mmol/L (96-109); Glucose 99 mg/dL (70-110); Magnesium 1.8 mg/dL (1.5-2.4); Potassium 3.8 mmol/L (3.5-5.5); Sodium 145 mmol/L (135-145)
[2024-08-07 09:52] LABS: HCT 29.4 % (39.0-53.0); HGB 9.8 gm/dL (13.0-17.5); MCH 31.3 pg (25.0-35.0); MCHC 33.2 g/dL (31.0-37.0); MCV 94.3 fL (80.0-100.0); Platelet Count 185 k/uL (150-450); RBC 3.12 m/uL (4.30-5.90); RDW 13.4 % (11.5-15.5); WBC 10.2 k/uL (3.8-10.6)
--- NOTE | 2024-08-07 11:56 | P.PN ---
Subjective Patient is seen in follow-up for acute kidney injury. Renal function improving. On IV fluids. Oral intake fair. No active complaints. Vital signs are stable. General: No acute distress. HEENT: Head exam is unremarkable. LUNGS: No audible rhonchi or wheezes. HEART: Rate and Rhythm are regular. ABDOMEN: Nontender. EXTREMITITES: No edema. Objective - Vital Signs Vital signs: Vital Signs Temp 99.1 F 08/07/24 07:09 Pulse 84 08/07/24 08:59 Resp 18 08/07/24 07:09 BP 133/67 08/07/24 07:09 Pulse Ox 94 L 08/07/24 07:09 FiO2 Intake & Output 08/06/24 08/07/24 08/07/24 18:59 06:59 18:59 Intake Total 760 Output Total 1155 1600 Balance -395 -1600 Weight 105.6 kg Intake: IV 760 Cefepime 1 gm In Sodium 50 Chloride 0.9% 50 ml @ 12. 5 mls/hr IVPB Q12H [facility] Rx #:[id number] Sodium Chloride 0.9% 1, 710 000 ml @ 130 mls/hr IV . Q7H42M [facility] Rx#:[id number] Output: Urine 1155 1600 Other: Voiding Method Indwelling Catheter Indwelling Catheter # Bowel Movements 1 1 - Labs CBC & Chem 7: 08/07/24 03:20 08/07/24 03:20 Labs: Abnormal Lab Results - Last 24 Hours (Table) 08/07/24 08/07/24 Range/Units 03:20 03:20 RBC 3.12 L (4.30-5.90) m/uL Hgb 9.8 L (13.0-17.5) gm/dL Hct 29.4 L (39.0-53.0) % Chloride 114 H (96-109) mmol/L Carbon Dioxide 20.8 L (21.6-31.8) mmol/L Est GFR (CKD-EPI) 59 L (>=60) Calcium 7.9 L (8.7-10.3) mg/dL Microbiology - Last 24 Hours (Table) 08/04/24 11:50 Blood Culture Gram Stain - Final Blood Blood Culture - Final Proteus mirabilis Molecular ID Assessment and Plan Plan: Assessment: 1. Acute kidney injury secondary to ATN secondary to septic shock. Baseline creatinine near 1 and was elevated at 2.7 this admission -1.2 today. No hydronephrosis noted on kidney ultrasound. 2. Septic shock. Blood culture positive for Proteus. Source possibly UTI. On IV antibiotics. ID following. 3. Hypomagnesemia from poor intake. Replaced. Improved. 4. Diabetes mellitus. 5. Metabolic acidosis secondary to IV fluids. Plan: Maintain IV fluids. Hep-Lock tomorrow. Avoid nephrotoxins. Continue to monitor renal function and urine output. Has chronic Ko catheter. Add oral bicarb.
--- NOTE | 2024-08-07 12:48 | P.PN ---
Subjective Progress Note Date: 08/07/24 This is an 84-year-old white male known history of multiple medical problems including hypertension, dyslipidemia, history of peripheral vessel occlusive disease, patient was in the hospital from 07/06 till 07/26 after a mechanical fall. Underwent surgical treatment of T9-T10 fracture, T8 11 posterior sta bilization and fusion T8/11 segmental instrumentation this was done by dr brooks on 07/23. Postoperatively patient had questionable seizures and he was placed on Keppra. [facility] prison with a Ko [facility] and advised to have urology follow-up regarding his urinary retention. Patient was brought into the ER today mostly with symptoms of mental status change according to prison staff, and low blood pressure. In the ER he was found to be hypotensive, did not improve with fluid boluses received few liters of fluid boluses, then the patient was placed on norepinephrine he is presently on 0.03 mcg/kg/min of norepinephrine. Patient was found to have leukocytosis with WBC count of 20.1, he had low hemoglobin of 10.5 BUN of 34 creatinine 2.77 and lactic acid of 3.1. X-ray showed mostly chronic changes and no evidence of acute pulmonary process. Urinalysis showed pyuria and bacteriuria patient had history of VRE urinary tract infection, hence he was placed empirically on daptomycin. I saw the patient in the ER, I kept him on norepinephrine I am arranging for the patient to transfer to the ICU and will check his blood cultures and urine cultures.Patient had negative testing for influenza RSV and SARS. Seen and examined today on 08/05/2024, patient remains in the ER, waiting for an ICU bed ability, patient seems to be comfortable, he is on room air, still requiring norepinephrine at 0.03 mcg/kg/min, receiving fluids 0.9 normal saline at 130 cc/h still receiving daptomycin and cefepime. Patient seems comfortable, his labs were reviewed, WBC count remains elevated 16.8 hemoglobin 9.7 basic metabolic profile is normal BUN is 38 creatinine 2.37, improving since admission. His kidney injury seems to be ATN related secondary to septic shock, baseline creatinine is near 1. His ultrasound of the kidneys showed no evidence of hydronephrosis. Echocardiogram this morning showed good LV function 60 to 65%, there was also mild mitral and tricuspid regurgitation with no evidence of pericardial effusion. No evidence of pulmonary hypertension. Seen today on 08/06/2024, remains in the ICU, patient is off norepinephrine, hemodynamically stable, on room air, receiving IV fluid at 0.9 normal saline 75 cc/h. Blood cultures are positive for Proteus species. E. coli is noted in the urine. Patient remains empirically on broad-spectrum antibiotics, and considering his hemodynamic stability considering he has no active pulmonary issues at this point, I will continue antibiotics, and I will arrange for him to be transferred to regular medical floor. WBC count today is improving 13.5 hemoglobin is 9.2 electrolytes are normal BUN is 29 creatinine much better today down to 1.46 from 2.37 yesterday. The patient is seen today August 07, 2024 in follow-up on the regular medical floor. He is awake and alert in no acute distress. Resting comfortably in bed. Maintaining good O2 saturation in the 90s on room air. Blood cultures are positive for Proteus mirabilis. He is currently on cefepime. White count 10.2. Hemoglobin 9.8. Platelets 185. Sodium 145. Potassium 3.8. Bicarb 21. BUN 21. Creatinine 1.2. Glucose 99. He remains on bronchodilators. Heparin for DVT prophylaxis. Objective - Vital Signs Vital signs: Vital Signs Temp 99.1 F 08/07/24 07:09 Pulse 84 08/07/24 08:59 Resp 18 08/07/24 07:09 BP 133/67 08/07/24 07:09 Pulse Ox 94 L 08/07/24 07:09 FiO2 Intake & Output 08/06/24 08/07/24 08/07/24 18:59 06:59 18:59 Intake Total 760 Output Total 1155 1600 Balance -395 -1600 Weight 105.6 kg Intake: IV 760 Cefepime 1 gm In Sodium 50 Chloride 0.9% 50 ml @ 12. 5 mls/hr IVPB Q12H [facility] Rx #:[id number] Sodium Chloride 0.9% 1, 710 000 ml @ 130 mls/hr IV . Q7H42M [facility] Rx#:[id number] Output: Urine 1155 1600 Other: Voiding Method Indwelling Catheter Indwelling Catheter # Bowel Movements 1 1 1 - Exam GENERAL EXAM: Alert, 84-year-old male, on room air, comfortable in no apparent distress. HEAD: Normocephalic. EYES: Normal reaction of pupils, equal size. NOSE: Clear with pink turbinates. THROAT: No erythema or exudates. NECK: No masses, no JVD. CHEST: No chest wall deformity. LUNGS: Equal air entry with no crackles, wheeze, rhonchi or dullness. CVS: S1 and S2 normal with no audible murmur, regular rhythm. ABDOMEN: No hepatosplenomegaly, normal bowel sounds, no guarding or rigidity. SPINE: No scoliosis or deformity SKIN: No rashes CENTRAL NERVOUS SYSTEM: No focal deficits, tone is normal in all 4 extremities. EXTREMITIES: There is no peripheral edema. No clubbing, no cyanosis. Per ipheral pulses are intact. - Labs CBC & Chem 7: 08/07/24 03:20 08/07/24 03:20 Labs: Abnormal Lab Results - Last 24 Hours (Table) 08/07/24 08/07/24 Range/Units 03:20 03:20 RBC 3.12 L (4.30-5.90) m/uL Hgb 9.8 L (13.0-17.5) gm/dL Hct 29.4 L (39.0-53.0) % Chloride 114 H (96-109) mmol/L Carbon Dioxide 20.8 L (21.6-31.8) mmol/L Est GFR (CKD-EPI) 59 L (>=60) Calcium 7.9 L (8.7-10.3) mg/dL Microbiology - Last 24 Hours (Table) 08/04/24 11:50 Blood Culture Gram Stain - Final Blood Blood Culture - Final Proteus mirabilis Molecular ID Assessment and Plan Assessment: Septic shock, Proteus mirabilis bacteremia in the blood final culture and currently on cefepime History of VRE infection Acute kidney injury secondary to septic shock/acute tubular necrosis, improving with improvement in his overall clinical status and septic shock picture History of recent cervical fracture requiring surgery History of peripheral vessel occlusive disease Dyslipidemia, on Lipitor History of benign essential hypertension, presently hypotensive mostly because of his septic shock History of degenerative joint disease History of obstructive sleep apnea syndrome History of underlying dementia History of seizure disorder maintained on Keppra Plan: The patient was seen and evaluated Labs and medications reviewed Continued on cefepime Remains hemodynamically stable We will continue to follow I have personally seen and examined the patient, performed the documentation and the assessment and plan as written. Number of minutes spent on the visit: 10 Dictation was produced using [employer] dictation software. Please excuse any grammatical, word or spelling errors.
--- NOTE | 2024-08-07 13:02 | P.PN ---
Subjective Progress Note Date: 08/07/24 84-year-old male with PMH of PVD status post stent of the right common iliac vein, HTN, HLD presents to the ED for altered mental status and hypotension. He was recently admitted from 07/06-07/26 after a mechanical fall, underwent open treatment T9-10 AO type B2 fracture, T8-11 posterior stabilized fusion, T8-11 segmental instrumentation, vertebral body augmentation and screw augmentation with cement T8 and T11 with Dr. Hicks on 07/23. Post operatively there was concerns for seizures and he was started on Keppra. He was discharged to SNF with a Ko catheter with instructions to attempt voiding trial while there and also with a Urology follow up. It is unclear if Ko catheter was changed while at SNF. In the ED he underwent extensive evaluation. T 97F, HR 85, RR 16, BP 83/37, 95% on 3L NC. CBC, Coag panel, CMP significant for WBC 20.1, RBC 3.43, Hg 10.5, Hct 32.1, INR 1.2, Cl 108, BUN 34, Cr 2.77, glu 109, Ca 7.8, alb 2.8. Lactic acid 3.1. Troponin 0.061. RSV/Flu/COVID negative. EKG showed sinus rhythm no ST or T wave changes. CXR showed chronic changes without evidence of acute pulmonary disease. Central line was placed in the right femoral groin. He was started on Levophed and Daptomycin and admitted to ICU for further workup and management. ID consulted, Cefepime added. BCx prelim growing Proteus. Daptomycin discontinued. Levophed was weaned off and patient transferred out of ICU. 08/07 Patient was seen and examined. Mentation improved. Levophed weaned off. Antibiotics include Cefepime 2g IV BID (D3). BCx growing Proteus. CBC and BMP significant for RBC 3.12, Hg 9.8, Hct 29.4, Cl 114, bicarb 20.8, Ca 7.9. Mag 1.8. General: non toxic, no distress, appears at stated age Derm: warm, dry, venous stasis changes lower extremities Head: atraumatic, normocephalic, symmetric Eyes: EOMI, no lid lag, anicteric sclera Mouth: no lip lesion, mucus membranes moist Cardiovascular: S1S2 reg, no murmur Lungs: Clear to auscultation bilaterally, no rhonchi, no rales , no accessory muscle use Abd: Non distended. Non tender to palpation, + Ko Ext: no gross muscle atrophy, no edema, no contractures Neuro: No focal neurologic deficits Psych: Alert, oriented x 2 Based on my assessment of this patient, this patient meets a high complexity level of care. Acute metabolic encephalopathy likely due to below: Fall, Aspiration, Seizure precautions. Elevated HOB. Septic shock due to Proteus bacteremia: Likely source urine. Cefepime 1g IV BID (D3). Follow final BCx, UCx. Telemetry monitoring. Levophed drip to maintain MAP > 65. Decrease NS at 20 cc/hr. ID on board. Demand ischemia: Troponins flat. ACS ruled out. Echo as above. Acute kidney injury: IV hydration as above. No obstruction on Renal bladder US. Hold Lisinopril. Nephrology on board. Normocytic anemia: No signs of active bleeding. Monitor. Resolved: Lactic acidosis, HypoMag T9 and T10 endplate fracture status post mechanical fall status post T8-T11 stabilization for T9/T10 endplate fractures with Dr. Hicks on 07/23 PVD status post stent of right common iliac vein Hypertension: Hold Lisinopril. Hyperlipidemia: Lipitor 20 mg PO QHS. BPH: Hold Flomax. Concerns for seizures: Keppra 500 mg PO BID. Dementia: Paxil 40 mg PO QD. Seroquel 12.5 mg PO QHS PRN. CODE STATUS: FULL CODE DVT Prophylaxis: Heparin SQ GI Prophylaxis: Protonix IV Designated medical POA if patient is not able to make medical decisions for themselves: Guardian Dispo: Doing well. Plans for SNF I have reviewed the following network security consultant notes: Nephrology, Pulmonary I have reviewed the results of the following tests: BCx. CBC, BMP, Mag. I have ordered the following tests: I have discussed the care of this patient with the following independent historian: I have independently interpreted the following test below: I have discussed the management of this patient with the following physician: Objective - Vital Signs Vital signs: Vital Signs Temp 99.1 F 08/07/24 07:09 Pulse 70 08/07/24 07:09 Resp 18 08/07/24 07:09 BP 133/67 08/07/24 07:09 Pulse Ox 94 L 08/07/24 07:09 FiO2 Intake & Output 08/06/24 08/07/24 08/07/24 18:59 06:59 18:59 Intake Total 760 Output Total 1155 1600 Balance -395 -1600 Weight 105.6 kg Intake: IV 760 Cefepime 1 gm In Sodium 50 Chloride 0.9% 50 ml @ 12. 5 mls/hr IVPB Q12H [facility] Rx #:[id number] Sodium Chloride 0.9% 1, 710 000 ml @ 130 mls/hr IV . Q7H42M [facility] Rx#:[id number] Output: Urine 1155 1600 Other: Voiding Method Indwelling Catheter Indwelling Catheter # Bowel Movements 1 1 - Labs CBC & Chem 7: 08/07/24 03:20 08/07/24 03:20 Labs: Microbiology - Last 24 Hours (Table) 08/04/24 11:50 Blood Culture Gram Stain - Preliminary Blood Blood Culture - Preliminary Proteus mirabilis Molecular ID
[2024-08-07] MEDS: SODIUM BICARBONATE TAB 650 MG TAB PO SCH (13:08)
--- NOTE | 2024-08-07 14:42 | P.PN ---
Subjective Progress Note Date: 08/07/24 Principal diagnosis: Reason for follow-up is sepsis secondary catheter associated UTI patient is a 84-year-old male with a past medical history significant for hypertension hyperlipidemia sleep apnea did have a history of recurrent urinary tract infection patient has been sent to the hospital from the local care home for evaluation of mental status changes patient has been diagnosed with sepsis secondary to catheter associated UTI with initial admission to the [facility]. On today's evaluation that is 08/07/2024, the patient continues to be afebrile, the patient is on room air and breathing comfortably, the Pt denies having any chest pain or cough, the patient denies having any abdominal pain no vomiting or any diarrhea has been reported by the nursing staff. Patient white count is 10.2, creat is 1.2 blood culture with Proteus that is a sensitive pathogen Objective - Vital Signs Vital signs: Vital Signs Temp 98.3 F 08/07/24 13:16 Pulse 75 08/07/24 13:16 Resp 18 08/07/24 13:16 BP 129/61 08/07/24 13:16 Pulse Ox 98 08/07/24 13:16 FiO2 Intake & Output 08/06/24 08/07/24 08/07/24 18:59 06:59 18:59 Intake Total 760 Output Total 1155 1600 650 Balance -395 -1600 -650 Weight 105.6 kg Intake: IV 760 Cefepime 1 gm In Sodium 50 Chloride 0.9% 50 ml @ 12. 5 mls/hr IVPB Q12H [facility] Rx #:[id number] Sodium Chloride 0.9% 1, 710 000 ml @ 130 mls/hr IV . Q7H42M [facility] Rx#:[id number] Output: Urine 1155 1600 650 Other: Voiding Method Indwelling Catheter Indwelling Catheter # Bowel Movements 1 1 1 - Exam GENERAL DESCRIPTION: An elderly male lying in bed in no distress RESPIRATORY SYSTEM: Unlabored breathing , decreased breath sounds at bases HEART: S1 S2 regular rate and rhythm , ABDOMEN: Soft , no tenderness EXTREMITIES: No edema feet - Labs CBC & Chem 7: 08/07/24 03:20 08/07/24 03:20 Labs: Abnormal Lab Results - Last 24 Hours (Table) 08/07/24 08/07/24 Range/Units 03:20 03:20 RBC 3.12 L (4.30-5.90) m/uL Hgb 9.8 L (13.0-17.5) gm/dL Hct 29.4 L (39.0-53.0) % Chloride 114 H (96-109) mmol/L Carbon Dioxide 20.8 L (21.6-31.8) mmol/L Est GFR (CKD-EPI) 59 L (>=60) Calcium 7.9 L (8.7-10.3) mg/dL Microbiology - Last 24 Hours (Table) 08/04/24 11:50 Blood Culture Gram Stain - Final Blood Blood Culture - Final Proteus mirabilis Molecular ID Assessment and Plan (1) Sepsis Current Visit: Yes Status: Acute Code(s): A41.9 - SEPSIS, UNSPECIFIED ORGANISM SNOMED Code(s): 72169210 (2) Catheter-associated urinary tract infection Current Visit: Yes Status: Acute Code(s): T83.511A - I/I REACT D/T INDWELLING URETHRAL CATHETER, INIT; N39.0 - URINARY TRACT INFECTION, SITE NOT SPECIFIED SNOMED Code(s): 842648157 (3) Bacteremia Current Visit: Yes Status: Acute Code(s): R78.81 - BACTEREMIA SNOMED Co de(s): 5968368 Plan: 1patient presented to hospital with sepsis in this patient who did have hypotension elevated white count source is likely catheter associated UTI as no other obvious focus of infection no evidence of pneumonia abdominal pain soft no evidence of any cellulitis or joint swelling will need to cover for the enteric gram-negative to the likely pathogen however patient did have last urine culture positive for VRE 2-patient with a positive blood culture with Proteus source is likely urine unfortunately no urine culture 3-we will switch cefepime to Rocephin as it is a sensitive pathogen hopefully transition to oral antibiotics on discharge Dictation was produced using [employer] dictation software. please excuse any grammatical, word or spelling errors. Time with Patient: Less than 30
[2024-08-07] MEDS ORDERED: CEFEPIME 2 GM in SODIUM CHLORIDE 0.9% 100 ML IVPB SCH (21:00)
[2024-08-08] MEDS: TAMSULOSIN 0.4 MG CAP.ER.24H PO SCH (09:01)
[2024-08-08 09:37] LABS: BUN/Creat Ratio 14.08 Ratio (12.00-20.00); Blood Urea Nitrogen 16.9 mg/dL (9.0-27.0); Carbon Dioxide 20.5 mmol/L (21.6-31.8); Chloride 112 mmol/L (96-109); Glucose 109 mg/dL (70-110); Potassium 3.9 mmol/L (3.5-5.5); Sodium 144 mmol/L (135-145)
--- NOTE | 2024-08-08 10:18 | P.PN ---
Subjective Patient is seen in follow-up for acute kidney injury. Renal function improved. On IV fluids. Oral intake fair. No active complaints. Vital signs are stable. General: No acute distress. HEENT: Head exam is unremarkable. LUNGS: No audible rhonchi or wheezes. HEART: Rate and Rhythm are regular. ABDOMEN: Nontender. EXTREMITITES: No edema. Objective - Vital Signs Vital signs: Vital Signs Temp 98.1 F 08/08/24 07:12 Pulse 88 08/08/24 07:51 Resp 16 08/08/24 07:12 BP 154/69 08/08/24 07:12 Pulse Ox 98 08/08/24 07:12 FiO2 Intake & Output 08/07/24 08/08/24 08/08/24 18:59 06:59 18:59 Output Total 1050 800 500 Balance -1050 -800 -500 Output: Urine 1050 800 500 Other: Voiding Method Indwelling Catheter Indwelling Catheter Indwelling Catheter # Bowel Movements 1 - Labs CBC & Chem 7: 08/07/24 03:20 08/08/24 03:12 Labs: Abnormal Lab Results - Last 24 Hours (Table) 08/08/24 Range/Units 03:12 Chloride 112 H (96-109) mmol/L Carbon Dioxide 20.5 L (21.6-31.8) mmol/L Est GFR (CKD-EPI) 59 L (>=60) Calcium 8.0 L (8.7-10.3) mg/dL Microbiology - Last 24 Hours (Table) 08/04/24 11:50 Blood Culture Gram Stain - Final Blood Blood Culture - Final Proteus mirabilis Molecular ID Assessment and Plan Plan: Assessment: 1. Acute kidney injury secondary to ATN secondary to septic shock. Baseline creatinine near 1 and was elevated at 2.7 this admission - stable at 1.2 today. No hydronephrosis noted on kidney ultrasound. 2. Septic shock. Blood culture positive for Proteus. Source possibly UTI. On IV antibiotics. ID following. 3. Hypomagnesemia from poor intake. Replaced. Improved. 4. Diabetes mellitus. 5. Metabolic acidosis secondary to IV fluids. On oral bicarb. Stable. Plan: Decrease rate of normal saline to 50 cc an hour. Avoid nephrotoxins. Continue to monitor renal function and urine output. Has chronic Ko catheter.
--- NOTE | 2024-08-08 12:46 | P.PN ---
Subjective Progress Note Date: 08/08/24 84-year-old male with PMH of PVD status post stent of the right common iliac vein, HTN, HLD presents to the ED for altered mental status and hypotension. He was recently admitted from 07/06-07/26 after a mechanical fall, underwent open treatment T9-10 AO type B2 fracture, T8-11 posterior stabilized fusion, T8-11 segmental instrumentation, vertebral body augmentation and screw augmentation with cement T8 and T11 with Dr. Hicks on 07/23. Post operatively there was concerns for seizures and he was started on Keppra. He was discharged to SNF with a Ko catheter with instructions to attempt voiding trial while there and also with a Urology follow up. It is unclear if Ko catheter was changed while at SNF. In the ED he underwent extensive evaluation. T 97F, HR 85, RR 16, BP 83/37, 95% on 3L NC. CBC, Coag panel, CMP significant for WBC 20.1, RBC 3.43, Hg 10.5, Hct 32.1, INR 1.2, Cl 108, BUN 34, Cr 2.77, glu 109, Ca 7.8, alb 2.8. Lactic acid 3.1. Troponin 0.061. RSV/Flu/COVID negative. EKG showed sinus rhythm no ST or T wave changes. CXR showed chronic changes without evidence of acute pulmonary disease. Central line was placed in the right femoral groin. He was started on Levophed and Daptomycin and admitted to ICU for further workup and management. ID consulted, Cefepime added. BCx prelim growing Proteus. Daptomycin discontinued. Levophed was weaned off and patient transferred out of ICU. 08/08 Patient was seen and examined. No complaints today. Antibiotics include Cefepime 2g IV BID (D4). BCx growing Proteus. BMP Cl 112, bicarb 20.5, Ca 8. General: non toxic, no distress, appears at stated age Derm: warm, dry, venous stasis changes lower extremities Head: atraumatic, normocephalic, symmetric Eyes: EOMI, no lid lag, anicteric sclera Mouth: no lip lesion, mucus membranes moist Cardiovascular: S1S2 reg, no murmur Lungs: Clear to auscultation bilaterally, no rhonchi, no rales , no accessory muscle use Abd: Non distended. Non tender to palpation, + Ko Ext: no gross muscle atrophy, no edema, no contractures Neuro: No focal neurologic deficits Psych: Alert, oriented x 2 Based on my assessment of this patient, this patient meets a high complexity level of care. Acute metabolic encephalopathy likely due to below: Fall, Aspiration, Seizure precautions. Elevated HOB. Septic shock due to Proteus bacteremia: Likely source urine. Cefepime 1g IV BID (D4). Telemetry monitoring. Levophed drip to maintain MAP > 65. NS at 50 cc/hr per Nephro. ID on board. Demand ischemia: Troponins flat. ACS ruled out. Echo as above. Acute kidney injury: IV hydration as above. No obstruction on Renal bladder US. Hold Lisinopril. Nephrology on board. Normocytic anemia: No signs of active bleeding. Monitor. Resolved: Lactic acidosis, HypoMag T9 and T10 endplate fracture status post mechanical fall status post T8-T11 stabilization for T9/T10 endplate fractures with Dr. Hicks on 07/23 PVD status post stent of right common iliac vein Hypertension: Restart Lisinopril 2.5 mg PO QD. Hyperlipidemia: Lipitor 20 mg PO QHS. BPH: Restart Flomax 0.4 mg PO QD. Concerns for seizures: Keppra 500 mg PO BID. Dementia: With history of delirium. Paxil 40 mg PO QD. Seroquel 12.5 mg PO QHS PRN. CODE STATUS: FULL CODE DVT Prophylaxis: Heparin SQ GI Prophylaxis: Protonix IV Designated medical POA if patient is not able to make medical decisions for themselves: Guardian Dispo: Doing well. Plans for SNF 08/09. I have reviewed the following contract consultant notes: Nephrology, ID, Pulmonary I have reviewed the results of the following tests: [facility] [place] I have ordered the following tests: I have discussed the care of this patient with the following independent historian: I have independently interpreted the following test below: I have discussed the management of this patient with the following physician: Objective - Vital Signs Vital signs: Vital Signs Temp 98.1 F 08/08/24 07:12 Pulse 88 08/08/24 07:51 Resp 16 08/08/24 07:12 BP 154/69 08/08/24 07:12 Pulse Ox 98 08/08/24 07:12 FiO2 Intake & Output 08/07/24 08/08/24 08/08/24 18:59 06:59 18:59 Output Total 1050 800 Balance -1050 -800 Output: Urine 1050 800 Other: Voiding Method Indwelling Catheter Indwelling Catheter # Bowel Movements 1 - Labs CBC & Chem 7: 08/07/24 03:20 08/08/24 03:12 Labs: Abnormal Lab Results - Last 24 Hours (Table) 08/07/24 08/07/24 Range/Units 03:20 03:20 RBC 3.12 L (4.30-5.90) m/uL Hgb 9.8 L (13.0-17.5) gm/dL Hct 29.4 L (39.0-53.0) % Chloride 114 H (96-109) mmol/L Carbon Dioxide 20.8 L (21.6-31.8) mmol/L Est GFR (CKD-EPI) 59 L (>=60) Calcium 7.9 L (8.7-10.3) mg/dL Microbiology - Last 24 Hours (Table) 08/04/24 11:50 Blood Culture Gram Stain - Final Blood Blood Culture - Final Proteus mirabilis Molecular ID
--- NOTE | 2024-08-08 12:51 | P.PN ---
Subjective Progress Note Date: 08/08/24 This is an 84-year-old white male known history of multiple medical problems including hypertension, dyslipidemia, history of peripheral vessel occlusive disease, patient was in the hospital from 07/06 till 07/26 after a mechanical fall. Underwent surgical treatment of T9-T10 fracture, T8 11 posterior sta bilization and fusion T8/11 segmental instrumentation this was done by dr brooks on 07/23. Postoperatively patient had questionable seizures and he was placed on Keppra. Discharged to correction with a Ko catheter and advised to have urology follow-up regarding his urinary retention. Patient was brought into the ER today mostly with symptoms of mental status change according to correction staff, and low blood pressure. In the ER he was found to be hypotensive, did not improve with fluid boluses received few liters of fluid boluses, then the patient was placed on norepinephrine he is presently on 0.03 mcg/kg/min of norepinephrine. Patient was found to have leukocytosis with WBC count of 20.1, he had low hemoglobin of 10.5 BUN of 34 creatinine 2.77 and lactic acid of 3.1. X-ray showed mostly chronic changes and no evidence of acute pulmonary process. Urinalysis showed pyuria and bacteriuria patient had history of VRE urinary tract infection, hence he was placed empirically on daptomycin. I saw the patient in the ER, I kept him on norepinephrine I am arranging for the patient to transfer to the ICU and will check his blood cultures and urine cultures.Patient had negative testing for influenza RSV and SARS. Seen and examined today on 08/05/2024, patient remains in the ER, waiting for an ICU bed ability, patient seems to be comfortable, he is on room air, still requiring norepinephrine at 0.03 mcg/kg/min, receiving fluids 0.9 normal saline at 130 cc/h still receiving daptomycin and cefepime. Patient seems comfortable, his labs were reviewed, WBC count remains elevated 16.8 hemoglobin 9.7 basic metabolic profile is normal BUN is 38 creatinine 2.37, improving since admission. His kidney injury seems to be ATN related secondary to septic shock, baseline creatinine is near 1. His ultrasound of the kidneys showed no evidence of hydronephrosis. Echocardiogram this morning showed good LV function 60 to 65%, there was also mild mitral and tricuspid regurgitation with no evidence of pericardial effusion. No evidence of pulmonary hypertension. Seen today on 08/06/2024, remains in the ICU, patient is off norepinephrine, hemodynamically stable, on room air, receiving IV fluid at 0.9 normal saline 75 cc/h. Blood cultures are positive for Proteus species. E. coli is noted in the urine. Patient remains empirically on broad-spectrum antibiotics, and considering his hemodynamic stability considering he has no active pulmonary issues at this point, I will continue antibiotics, and I will arrange for him to be transferred to regular medical floor. WBC count today is improving 13.5 hemoglobin is 9.2 electrolytes are normal BUN is 29 creatinine much better today down to 1.46 from 2.37 yesterday. The patient is seen today August 07, 2024 in follow-up on the regular medical floor. He is awake and alert in no acute distress. Resting comfortably in bed. Maintaining good O2 saturation in the 90s on room air. Blood cultures are positive for Proteus mirabilis. He is currently on cefepime. White count 10.2. Hemoglobin 9.8. Platelets 185. Sodium 145. Potassium 3.8. Bicarb 21. BUN 21. Creatinine 1.2. Glucose 99. He remains on bronchodilators. Heparin for DVT prophylaxis. The patient is seen today August 08, 2024 in follow-up on the regular medical floor. He is currently resting comfortably in bed. Awake and alert in no acute distress. He is maintaining good O2 saturations in the 90s on room air. He has normal staying at 50 mL/h. His blood cultures were positive for Proteus mirabilis. He remains on ceftriaxone. Sodium 144. Potassium 3.9. Bicarb 21. BUN 17. Creatinine 1.2. Glucose 109. Heparin for DVT prophylaxis. Objective - Vital Signs Vital signs: Vital Signs Temp 98.1 F 08/08/24 07:12 Pulse 88 08/08/24 07:51 Resp 16 08/08/24 07:12 BP 154/69 08/08/24 07:12 Pulse Ox 98 08/08/24 07:12 FiO2 Intake & Output 08/07/24 08/08/24 08/08/24 18:59 06:59 18:59 Output Total 1050 800 500 Balance -1050 -800 -500 Output: Urine 1050 800 500 Other: Voiding Method Indwelling Catheter Indwelling Catheter Indwelling Catheter # Bowel Movements 1 - Exam GENERAL EXAM: Alert, 84-year-old male, resting in bed, on room air, in no apparent distress. HEAD: Normocephalic. EYES: Normal reaction of pupils, equal size. NOSE: Clear with pink turbinates. THROAT: No erythema or exudates. NECK: No masses, no JVD. CHEST: No chest wall deformity. LUNGS: Equal air entry with no crackles, wheeze, rhonchi or dullness. CVS: S1 and S2 normal with no audible murmur, regular rhythm. ABDOMEN: No hepatosplenomegaly, normal bowel sounds, no guarding or rigidity. SPINE: No scoliosis or deformity SKIN: No rashes CENTRAL NERVOUS SYSTEM: No focal deficits, tone is normal in all 4 extremities. EXTREMITIES: There is no peripheral edema. No clubbing, no cyanosis. Pe ripheral pulses are intact. - Labs CBC & Chem 7: 08/07/24 03:20 08/08/24 03:12 Labs: Abnormal Lab Results - Last 24 Hours (Table) 08/08/24 Range/Units 03:12 Chloride 112 H (96-109) mmol/L Carbon Dioxide 20.5 L (21.6-31.8) mmol/L Est GFR (CKD-EPI) 59 L (>=60) Calcium 8.0 L (8.7-10.3) mg/dL Microbiology - Last 24 Hours (Table) 08/04/24 11:50 Blood Culture Gram Stain - Final Blood Blood Culture - Final Proteus mirabilis Molecular ID Assessment and Plan Assessment: Septic shock, Proteus mirabilis bacteremia in the blood final culture and currently on ceftriaxone History of VRE infection Acute kidney injury secondary to septic shock/acute tubular necrosis, recovered History of recent cervical fracture requiring surgery History of peripheral vessel occlusive disease Dyslipidemia, on Lipitor History of benign essential hypertension, presently hypotensive mostly because of his septic shock History of degenerative joint disease History of obstructive sleep apnea syndrome History of underlying dementia History of seizure disorder maintained on Keppra Plan: The patient was seen and evaluated Labs and medications reviewed Continued on ceftriaxone Stable and on room air Plan is to return to [facility] at discharge I have personally seen and examined the patient, performed the documentation and the assessment and plan as written. Number of minutes spent on the visit: 10 Dictation was produced using [employer] dictation software. Please excuse any grammatical, word or spelling errors.
--- NOTE | 2024-08-08 14:59 | P.PN ---
Subjective Progress Note Date: 08/08/24 Principal diagnosis: Reason for follow-up is sepsis secondary catheter associated UTI patient is a 84-year-old male with a past medical history significant for hypertension hyperlipidemia sleep apnea did have a history of recurrent urinary tract infection patient has been sent to the hospital from the local longterm for evaluation of mental status changes patient has been diagnosed with sepsis secondary to catheter associated UTI with initial admission to the [facility]. On today's evaluation that is 08/08/2024, Patient is afebrile patient is currently on room air and denies having any shortness of breath, the patient denies any chest pain or cough, the patient denies any nausea vomiting did not have any abdominal pain and no diarrhea has been complaining of pain to the gluteal area from a pressure ulcer. Patient white count normalized to 10 point as of yesterday. Is 1.2 blood culture with Proteus Mirabella's Objective - Vital Signs Vital signs: Vital Signs Temp 98.4 F 08/08/24 13:25 Pulse 70 08/08/24 13:25 Resp 18 08/08/24 13:25 BP 144/67 08/08/24 13:25 Pulse Ox 97 08/08/24 13:25 FiO2 Intake & Output 08/07/24 08/08/24 08/08/24 18:59 06:59 18:59 Output Total 1050 800 500 Balance -1050 -800 -500 Output: Urine 1050 800 500 Other: Voiding Method Indwelling Catheter Indwelling Catheter Indwelling Catheter # Bowel Movements 1 - Exam GENERAL DESCRIPTION: An elderly male lying in bed in no distress RESPIRATORY SYSTEM: Unlabored breathing , decreased breath sounds at bases HEART: S1 S2 regular rate and rhythm , ABDOMEN: Soft , no tenderness EXTREMITIES: No edema feet - Labs CBC & Chem 7: 08/07/24 03:20 08/08/24 03:12 Labs: Abnormal Lab Results - Last 24 Hours (Table) 08/08/24 Range/Units 03:12 Chloride 112 H (96-109) mmol/L Carbon Dioxide 20.5 L (21.6-31.8) mmol/L Est GFR (CKD-EPI) 59 L (>=60) Calcium 8.0 L (8.7-10.3) mg/dL Assessment and Plan (1) Sepsis Current Visit: Yes Status: Acute Code(s): A41.9 - SEPSIS, UNSPECIFIED ORGANISM SNOMED Code(s): 26858108 (2) Catheter-associated urinary tract infection Current Visit: Yes Status: Acute Code(s): T83.511A - I/I REACT D/T INDWELLING URETHRAL CATHETER, INIT; N39.0 - URINARY TRACT INFECTION, SITE NOT SPECIFIED SNOMED Code(s): 939676498 (3) Bacteremia Current Visit: Yes Status: Acute Code(s): R78.81 - BACTEREMIA SNOMED Code(s): 4161455 Plan: 1patient presented to hospital with sepsis in this patient who did have hypotension elevated white count source is likely catheter associated UTI as no other obvious focus of infection no evidence of pneumonia abdominal pain soft no evidence of any cellulitis or joint swelling will need to cover for the enteric gram-negative to the likely pathogen however patient did have last urine culture positive for VRE 2-patient with a positive blood culture with Proteus source is likely urine unfortunately no urine culture 3-patient to continue with Rocephin 2 g daily transition to oral Ceftin 500 mg twice daily for 10 days on discharge 4-patient did have a stage II pressure ulcer to the gluteal area as described by the nursing staff mention he did have a dressing which was not removed keep the area of the pressure and dry Dictation was produced using [employer] dictation software. please excuse any grammatical, word or spelling errors.
--- NOTE | 2024-08-09 13:05 | P.PN ---
Subjective Progress Note Date: 08/09/24 84-year-old male with PMH of PVD status post stent of the right common iliac vein, HTN, HLD presents to the ED for altered mental status and hypotension. He was recently admitted from 07/06-07/26 after a mechanical fall, underwent open treatment T9-10 AO type B2 fracture, T8-11 posterior stabilized fusion, T8-11 segmental instrumentation, vertebral body augmentation and screw augmentation with cement T8 and T11 with Dr. Hicks on 07/23. Post operatively there was concerns for seizures and he was started on Keppra. He was discharged to SNF with a Ko catheter with instructions to attempt voiding trial while there and also with a Urology follow up. It is unclear if Ko catheter was changed while at SNF. In the ED he underwent extensive evaluation. T 97F, HR 85, RR 16, BP 83/37, 95% on 3L NC. CBC, Coag panel, CMP significant for WBC 20.1, RBC 3.43, Hg 10.5, Hct 32.1, INR 1.2, Cl 108, BUN 34, Cr 2.77, glu 109, Ca 7.8, alb 2.8. Lactic acid 3.1. Troponin 0.061. RSV/Flu/COVID negative. EKG showed sinus rhythm no ST or T wave changes. CXR showed chronic changes without evidence of acute pulmonary disease. Central line was placed in the right femoral groin. He was started on Levophed and Daptomycin and admitted to ICU for further workup and management. ID consulted, Cefepime added. BCx prelim growing Proteus. Daptomycin discontinued. Levophed was weaned off and patient transferred out of ICU. 08/09 Patient was seen and examined. Doing well. No complaints today. Antibiotics include Cefepime 2g IV BID (D5). BCx growing Proteus. Discussed with case management, needs insurance auth for transfer to SNF. Ko catheter discontinued and plans for voiding trial. General: non toxic, no distress, appears at stated age Derm: warm, dry, venous stasis changes lower extremities Head: atraumatic, normocephalic, symmetric Eyes: EOMI, no lid lag, anicteric sclera Mouth: no lip lesion, mucus membranes moist Cardiovascular: S1S2 reg, no murmur Lungs: Clear to auscultation bilaterally, no rhonchi, no rales , no accessory muscle use Ext: no gross muscle atrophy, no edema, no contractures Neuro: No focal neurologic deficits Psych: Alert, oriented x 2 Based on my assessment of this patient, this patient meets a high complexity level of care. Acute metabolic encephalopathy likely due to below: Fall, Aspiration, Seizure precautions. Elevated HOB. Septic shock due to Proteus bacteremia: Likely source urine. Cefepime 1g IV BID (D5). Telemetry monitoring. Levophed drip to maintain MAP > 65. NS at 50 cc/hr per Nephro. ID on board. Demand ischemia: Troponins flat. ACS ruled out. Echo as above. Normocytic anemia: No signs of active bleeding. Monitor. Resolved: Lactic acidosis, HypoMag, HARSHAD T9 and T10 endplate fracture status post mechanical fall status post T8-T11 stabilization for T9/T10 endplate fractures with Dr. Hicks on 07/23 PVD status post stent of right common iliac vein Hypertension: Restart Lisinopril 2.5 mg PO QD. Hyperlipidemia: Lipitor 20 mg PO QHS. BPH: Restart Flomax 0.4 mg PO QD. Concerns for seizures: Keppra 500 mg PO BID. Dementia: With history of delirium. Paxil 40 mg PO QD. Seroquel 12.5 mg PO QHS PRN. CODE STATUS: FULL CODE DVT Prophylaxis: Heparin SQ GI Prophylaxis: Protonix IV Designated medical POA if patient is not able to make medical decisions for themselves: Guardian Dispo: Doing well. Ko discontinued. Voiding trial today. Case management on board for SNF, needs insurance auth. I have reviewed the following farm consultant notes: I have reviewed the results of the following tests: I have ordered the following tests: I have discussed the care of this patient with the following independent historian: Case management. I have independently interpreted the following test below: I have discussed the management of this patient with the following physician: Objective - Vital Signs Vital signs: Vital Signs Temp 98.2 F 08/09/24 08:00 Pulse 76 08/09/24 08:41 Resp 17 08/09/24 08:00 BP 108/52 08/09/24 08:00 Pulse Ox 96 08/09/24 08:00 FiO2 Intake & Output 08/08/24 08/09/24 08/09/24 18:59 06:59 18:59 Output Total 1150 1100 400 Balance -1150 -1100 -400 Output: Urine 1150 1100 400 Uretheral (Ko) 400 Other: Voiding Method Indwelling Catheter Indwelling Catheter Indwelling Catheter - Labs CBC & Chem 7: 08/07/24 03:20 08/08/24 03:12
--- NOTE | 2024-08-09 13:17 | P.PN ---
Subjective Progress Note Date: 08/09/24 This is an 84-year-old white male known history of multiple medical problems including hypertension, dyslipidemia, history of peripheral vessel occlusive disease, patient was in the hospital from 07/06 till 07/26 after a mechanical fall. Underwent surgical treatment of T9-T10 fracture, T8 11 posterior sta bilization and fusion T8/11 segmental instrumentation this was done by dr brooks on 07/23. Postoperatively patient had questionable seizures and he was placed on Keppra. Discharged to shelter with a Ko catheter and advised to have urology follow-up regarding his urinary retention. Patient was brought into the ER today mostly with symptoms of mental status change according to shelter staff, and low blood pressure. In the ER he was found to be hypotensive, did not improve with fluid boluses received few liters of fluid boluses, then the patient was placed on norepinephrine he is presently on 0.03 mcg/kg/min of norepinephrine. Patient was found to have leukocytosis with WBC count of 20.1, he had low hemoglobin of 10.5 BUN of 34 creatinine 2.77 and lactic acid of 3.1. X-ray showed mostly chronic changes and no evidence of acute pulmonary process. Urinalysis showed pyuria and bacteriuria patient had history of VRE urinary tract infection, hence he was placed empirically on daptomycin. I saw the patient in the ER, I kept him on norepinephrine I am arranging for the patient to transfer to the ICU and will check his blood cultures and urine cultures.Patient had negative testing for influenza RSV and SARS. Seen and examined today on 08/05/2024, patient remains in the ER, waiting for an ICU bed ability, patient seems to be comfortable, he is on room air, still requiring norepinephrine at 0.03 mcg/kg/min, receiving fluids 0.9 normal saline at 130 cc/h still receiving daptomycin and cefepime. Patient seems comfortable, his labs were reviewed, WBC count remains elevated 16.8 hemoglobin 9.7 basic metabolic profile is normal BUN is 38 creatinine 2.37, improving since admission. His kidney injury seems to be ATN related secondary to septic shock, baseline creatinine is near 1. His ultrasound of the kidneys showed no evidence of hydronephrosis. Echocardiogram this morning showed good LV function 60 to 65%, there was also mild mitral and tricuspid regurgitation with no evidence of pericardial effusion. No evidence of pulmonary hypertension. Seen today on 08/06/2024, remains in the ICU, patient is off norepinephrine, hemodynamically stable, on room air, receiving IV fluid at 0.9 normal saline 75 cc/h. Blood cultures are positive for Proteus species. E. coli is noted in the urine. Patient remains empirically on broad-spectrum antibiotics, and considering his hemodynamic stability considering he has no active pulmonary issues at this point, I will continue antibiotics, and I will arrange for him to be transferred to regular medical floor. WBC count today is improving 13.5 hemoglobin is 9.2 electrolytes are normal BUN is 29 creatinine much better today down to 1.46 from 2.37 yesterday. The patient is seen today August 07, 2024 in follow-up on the regular medical floor. He is awake and alert in no acute distress. Resting comfortably in bed. Maintaining good O2 saturation in the 90s on room air. Blood cultures are positive for Proteus mirabilis. He is currently on cefepime. White count 10.2. Hemoglobin 9.8. Platelets 185. Sodium 145. Potassium 3.8. Bicarb 21. BUN 21. Creatinine 1.2. Glucose 99. He remains on bronchodilators. Heparin for DVT prophylaxis. The patient is seen today August 08, 2024 in follow-up on the regular medical floor. He is currently resting comfortably in bed. Awake and alert in no acute distress. He is maintaining good O2 saturations in the 90s on room air. He has normal staying at 50 mL/h. His blood cultures were positive for Proteus mirabilis. He remains on ceftriaxone. Sodium 144. Potassium 3.9. Bicarb 21. BUN 17. Creatinine 1.2. Glucose 109. Heparin for DVT prophylaxis. The patient is seen today August 09, 2024 in follow-up on the regular medical floor. He is currently resting comfortably in bed. Awake and alert in no acute distress. He is maintaining good O2 saturations in the 90s on room air. He is continued on ceftriaxone. Remains on bronchodilators. Heparin for DVT prophylaxis. Blood cultures positive for Proteus mirabilis. Objective - Vital Signs Vital signs: Vital Signs Temp 98.2 F 08/09/24 08:00 Pulse 76 08/09/24 08:41 Resp 17 08/09/24 08:00 BP 108/52 08/09/24 08:00 Pulse Ox 96 08/09/24 08:00 FiO2 Intake & Output 08/08/24 08/09/24 08/09/24 18:59 06:59 18:59 Output Total 1150 1100 400 Balance -1150 -1100 -400 Output: Urine 1150 1100 400 Uretheral (Ko) 400 Other: Voiding Method Indwelling Catheter Indwelling Catheter Indwelling Catheter - Exam GENERAL EXAM: Alert, pleasant 84-year-old male, on room air, in no apparent distress. HEAD: Normocephalic. EYES: Normal reaction of pupils, equal size. NOSE: Clear with pink turbinates. THROAT: No erythema or exudates. NECK: No masses, no JVD. CHEST: No chest wall deformity. LUNGS: Equal air entry with no crackles, wheeze, rhonchi or dullness. CVS: S1 and S2 normal with no audible murmur, regular rhythm. ABDOMEN: No hepatosplenomegaly, normal bowel sounds, no guarding or rigidity. SPINE: No scoliosis or deformity SKIN: No rashes CENTRAL NERVOUS SYSTEM: No focal deficits, tone is normal in all 4 extremities. EXTREMITIES: There is no peripheral edema. No clubbing, no cyanosis. Peripheral pulses are intact. - Labs CBC & Chem 7: 08/07/24 03:20 08/08/24 03:12 Assessment and Plan Assessment: Septic shock, Proteus mirabilis bacteremia in the blood final culture and currently on ceftriaxone History of VRE infection Acute kidney injury secondary to septic shock/acute tubular necrosis, recovered History of recent cervical fracture requiring surgery History of peripheral vessel occlusive disease Dyslipidemia, on Lipitor History of benign essential hypertension, presently hypotensive mostly because of his septic shock History of degenerative joint disease History of obstructive sleep apnea syndrome History of underlying dementia History of seizure disorder maintained on Keppra Plan: The patient was seen and evaluated Medications reviewed Continued on ceftriaxone ID recommends Ceftin x 10 days at discharge Plan is to return to [facility] I have personally seen and examined the patient, performed the documentation and the assessment and plan as written. Number of minutes spent on the visit: 10 Dictation was produced using [employer] dictation software. Please excuse any grammatical, word or spelling errors.
--- NOTE | 2024-08-09 13:19 | P.PN ---
Subjective patient is seen for follow-up for acute kidney injury. Renal function has improved. No significant complaints today. Serum creatinine staying around 1.2 mg/dL. Patient is maintained on IV fluids. Objective - Vital Signs Vital signs: Vital Signs Temp 98.2 F 08/09/24 08:00 Pulse 76 08/09/24 08:41 Resp 17 08/09/24 08:00 BP 108/52 08/09/24 08:00 Pulse Ox 96 08/09/24 08:00 FiO2 Intake & Output 08/08/24 08/09/24 08/09/24 18:59 06:59 18:59 Output Total 1150 1100 400 Balance -1150 -1100 -400 Output: Urine 1150 1100 400 Uretheral (Ko) 400 Other: Voiding Method Indwelling Catheter Indwelling Catheter Indwelling Catheter - Exam patient is awake, comfortable, no acute distress. Examination of the heart S1 and S2 Examination of the lungs bilateral breath sounds are heard Abdomen is soft nontender Examination the 80s shows no significant edema OVER THE ROAD DRIVER exam grossly intact. - Labs CBC & Chem 7: 08/07/24 03:20 08/08/24 03:12 Assessment and Plan Assessment: 1. Acute kidney injury secondary to ATN secondary to septic shock. Baseline creatinine near 1 and was elevated at 2.7 this admission - stable at 1.2 today. No hydronephrosis noted on kidney ultrasound. Patient has chronic indwelling Ko catheter 2. Septic shock. Blood culture positive for Proteus. Source possibly UTI. On IV antibiotics. ID following. 3. Hypomagnesemia from poor intake. Replaced. Improved. 4. Diabetes mellitus. 5. Metabolic acidosis secondary to IV fluids. On oral bicarb. Stable. Plan: continue with normal saline Continue oral sodium bicarb Repeat labs in a.m.
--- NOTE | 2024-08-09 23:07 | P.PN ---
Subjective Progress Note Date: 08/09/24 Principal diagnosis: Reason for follow-up is sepsis secondary catheter associated UTI patient is a 84-year-old male with a past medical history significant for hypertension hyperlipidemia sleep apnea did have a history of recurrent urinary tract infection patient has been sent [facility] the [facility] the [facility] for evaluation of mental status changes patient has been diagnosed with sepsis secondary to catheter associated UTI with initial admission to the [facility]. On today's evaluation that is 08/09/2024, patient has been afebrile, patient is breathing comfortably and is currently on room air, patient denies having any significant cough no chest pain, patient denies nausea vomiting or diarrhea and no abdominal pain no new symptoms. Patient did have a creatinine 1.2 as of yesterday no lab draw today Objective - Vital Signs Vital signs: Vital Signs Temp 98.2 F 08/09/24 08:00 Pulse 76 08/09/24 08:41 Resp 17 08/09/24 08:00 BP 108/52 08/09/24 08:00 Pulse Ox 96 08/09/24 08:00 FiO2 Intake & Output 08/08/24 08/09/24 08/09/24 18:59 06:59 18:59 Output Total 1150 1100 400 Balance -1150 -1100 -400 Output: Urine 1150 1100 400 Uretheral (Ko) 400 Other: Voiding Method Indwelling Catheter Indwelling Catheter Indwelling Catheter - Exam GENERAL DESCRIPTION: An elderly male lying in bed in no distress RESPIRATORY SYSTEM: Unlabored breathing , decreased breath sounds at bases HEART: S1 S2 regular rate and rhythm , ABDOMEN: Soft , no tenderness EXTREMITIES: No edema feet - Labs CBC & Chem 7: 08/07/24 03:20 08/08/24 03:12 Assessment and Plan (1) Sepsis Current Visit: Yes Status: Acute Code(s): A41.9 - SEPSIS, UNSPECIFIED ORGANISM SNOMED Code(s): 61078405 (2) Catheter-associated urinary tract infection Current Visit: Yes Status: Acute Code(s): T83.511A - I/I REACT D/T INDWELLING URETHRAL CATHETER, INIT; N39.0 - URINARY TRACT INFECTION, SITE NOT SPECIFIED SNOMED Code(s): 354220521 (3) Bacteremia Current Visit: Yes Status: Acute Code(s): R78.81 - BACTEREMIA SNOMED Code(s): 5292066 Plan: 1patient presented to hospital with sepsis in this patient who did have hypotension elevated white count source is likely catheter associated UTI as no other obvious focus of infection no evidence of pneumonia abdominal pain soft no evidence of any cellulitis or joint swelling will need to cover for the enteric gram-negative to the likely pathogen however patient did have 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 please excuse any grammatical, word or spelling errors. Time with Patient: Less than 30
[2024-08-10 08:30] VITALS: BP 114/56; RESP 16; TEMP 98.6
--- NOTE | 2024-08-10 11:18 | P.CONS ---
History of Present Illness - Reason for Consult Consult date: 08/10/24 wound care - History of Present Illness This is an 84-year-old patient being seen on [address]. for stage II pressure ulcer to the left and right buttocks. Patient states that the ulcerations have been there for the last few months. He lives alone and has neighbors who come and help him periodically. Patient has stage II pressure ulcers with fat layer exposed. Slough and nonviable tissue present with minimal granulation wound edges are attached to the wound base no tunneling and undermining noted. Review Of Systems: Constitutional: No fever, no chills, no night sweats. No weight change. No weakness, fatigue or lethargy. No daytime sleepiness. Integumentary:reports wounds, no lesions. No rash or pruritus. No unusual bruising. No change in hair or nails. Physical exam: General Appearance: Alert, cooperative, no distress, appears stated age. Skin: See HPI all other Skin color, texture, tugor normal, no rashes or lesions. Neurologic: Alert oriented x3 Assessment: 1. Left buttock stage II pressure ulcer 2. Right buttock stage II pressure ulcer Plan: 1.Apply honey gel and bordered foam to the site change Friday. Utilize a air-filled cushion when sitting. Turn patient every 2 hours to help with offloading. Thank you for the consultation any questions please contact the wound care center. DNP note has been reviewed and discussed with Dr. Abdi and the impression and plan of care has been directed as dictated. Past Medical History Past Medical History: Asthma, Cancer, COPD, Diabetes Mellitus, Deep Vein Thrombosis (DVT), Hearing Disorder / Deafness, Hyperlipidemia, Hypertension, Osteoarthritis (OA), Prostate Disorder, Respiratory Disorder, Sleep Apnea/CPAP/BIPAP Additional Past Medical History / Comment(s): cpap, fell in october 2013 and fractured left hip, periodontal infection that delayed hip surgery. 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 He has a couple of walkers but does not usually use them. He states he drives. Smoking Status: Former smoker Past Alcohol Use History: None Reported Additional Past Alcohol Use History / Comment(s): Pt started smoking cigars in 3 and quit smoking them in 1998 Past Drug Use History: None Reported - Past Family History Brother(s) Family Medical History: Cancer Additional Family Medical History / Comment(s): kidney,liver Medications and Allergies Home Medications Medication Instructions Recorded Confirmed Type PARoxetine HCL [Paxil] 40 mg PO DAILY 06/08/14 08/04/24 History Folic Acid 1 mg PO DAILY 07/12/21 08/04/24 History Tamsulosin [Flomax] 0.4 mg PO DAILY 07/12/21 08/04/24 History lisinopriL 2.5 mg PO DAILY 04/23/23 08/04/24 History Ferrous Sulfate [Iron (65 MG 325 mg PO DAILY 07/06/24 08/04/24 History Elemental)] Acetaminophen Tab [Tylenol] 650 mg PO Q6HR PRN tab 07/26/24 08/04/24 Rx Atorvastatin [Lipitor] 20 mg PO HS #0 tab 07/26/24 08/04/24 Rx HYDROcodone/APAP 10-325MG [Derwent 1 each PO Q6H PRN #12 tab 07/26/24 08/04/24 Rx 10-325] Magnesium Hydroxide [Milk of 2,400 mg PO DAILY PRN ml 07/26/24 08/04/24 Rx Magnesia] QUEtiapine [SEROquel] 12.5 mg PO HS tab 07/26/24 08/04/24 Rx Sennosides [Senokot] 8.6 mg PO DAILY tab 07/26/24 08/04/24 Rx Albuterol Nebulized [Ventolin 1.25 mg INHALATION RT-TID 08/04/24 08/04/24 History Nebulized (Accuneb)] Dermaseptin 1 applic TOPICAL BID 08/04/24 08/04/24 History Dermaseptin 1 applic TOPICAL BID PRN 08/04/24 08/04/24 History Naloxone HCl [Narcan] 4 mg NASAL DAILY PRN 08/04/24 08/04/24 History Saccharomyces Boulardii 250 mg PO BID 08/04/24 08/04/24 History [Saccharomycin Df] Sennosides-Docusate Sodium 2 tab PO DAILY PRN 08/04/24 08/04/24 History [Senokot-S] levETIRAcetam [Keppra] 500 mg PO BID 08/04/24 08/04/24 History sitaGLIPtin [Januvia] 100 mg PO DAILY 08/04/24 08/04/24 History Allergies Allergy/AdvReac Type Severity Reaction Status Date / Time Penicillins Allergy Rash/Hives Verified 08/04/24 12:08 Physical Exam Vitals: Vital Signs Temp Pulse Pulse Resp BP Pulse Ox 08/10/24 09:13 72 08/10/24 09:02 70 08/10/24 08:00 98.6 F 70 16 114/56 95 08/10/24 01:37 97.8 F 75 18 150/64 93 L 08/09/24 21:58 72 08/09/24 21:42 74 08/09/24 19:31 99 F 70 18 146/69 96 08/09/24 14:00 98.0 F 72 17 105/50 98 Intake and Output 08/09/24 08/10/24 08/10/24 22:59 06:59 14:59 Output Total 600 400 Balance -600 -400 Output: Urine 600 400 Other: Voiding Method Indwelling Catheter Indwelling Catheter Results CBC & Chem 7: 08/07/24 03:20 08/08/24 03:12 Assessment and Plan (1) Stage II pressure ulcer of left buttock Current Visit: Yes Status: Acute Code(s): L89.322 - PRESSURE ULCER OF LEFT BUTTOCK, STAGE 2 SNOMED Code(s): 17759048635249 (2) Stage II pressure ulcer of right buttock Current Visit: Yes Status: Acute Code(s): L89.312 - PRESSURE ULCER OF RIGHT BUTTOCK, STAGE 2 SNOMED Code(s): 78719163081688
--- NOTE | 2024-08-10 12:23 | P.PN ---
Subjective Progress Note Date: 08/10/24 This is an 84-year-old white male known history of multiple medical problems including hypertension, dyslipidemia, history of peripheral vessel occlusive disease, patient was in the hospital from 07/06 till 07/26 after a mechanical fall. Underwent surgical treatment of T9-T10 fracture, T8 11 posterior sta bilization and fusion T8/11 segmental instrumentation this was done by dr brooks on 07/23. Postoperatively patient had questionable seizures and he was placed on Keppra. [facility] to [facility] with a Ko catheter and advised to have urology follow-up regarding his urinary retention. Patient was brought into the ER today mostly with symptoms of mental status change according to [facility] staff, and low blood pressure. In the ER he was found to be hypotensive, did not improve with fluid boluses received few liters of fluid boluses, then the patient was placed on norepinephrine he is presently on 0.03 mcg/kg/min of norepinephrine. Patient was found to have leukocytosis with WBC count of 20.1, he had low hemoglobin of 10.5 BUN of 34 creatinine 2.77 and lactic acid of 3.1. X-ray showed mostly chronic changes and no evidence of acute pulmonary process. Urinalysis showed pyuria and bacteriuria patient had history of VRE urinary tract infection, hence he was placed empirically on daptomycin. I saw the patient in the ER, I kept him on norepinephrine I am arranging for the patient to transfer to the ICU and will check his blood cultures and urine cultures.Patient had negative testing for influenza RSV and SARS. Seen and examined today on 08/05/2024, patient remains in the ER, waiting for an ICU bed ability, patient seems to be comfortable, he is on room air, still requiring norepinephrine at 0.03 mcg/kg/min, receiving fluids 0.9 normal saline at 130 cc/h still receiving daptomycin and cefepime. Patient seems comfortable, his labs were reviewed, WBC count remains elevated 16.8 hemoglobin 9.7 basic metabolic profile is normal BUN is 38 creatinine 2.37, improving since admission. His kidney injury seems to be ATN related secondary to septic shock, baseline creatinine is near 1. His ultrasound of the kidneys showed no evidence of hydronephrosis. Echocardiogram this morning showed good LV function 60 to 65%, there was also mild mitral and tricuspid regurgitation with no evidence of pericardial effusion. No evidence of pulmonary hypertension. Seen today on 08/06/2024, remains in the ICU, patient is off norepinephrine, hemodynamically stable, on room air, receiving IV fluid at 0.9 normal saline 75 cc/h. Blood cultures are positive for Proteus species. E. coli is noted in the urine. Patient remains empirically on broad-spectrum antibiotics, and considering his hemodynamic stability considering he has no active pulmonary issues at this point, I will continue antibiotics, and I will arrange for him to be transferred to regular medical floor. WBC count today is improving 13.5 hemoglobin is 9.2 electrolytes are normal BUN is 29 creatinine much better today down to 1.46 from 2.37 yesterday. The patient is seen today August 07, 2024 in follow-up on the regular medical floor. He is awake and alert in no acute distress. Resting comfortably in bed. Maintaining good O2 saturation in the 90s on room air. Blood cultures are positive for Proteus mirabilis. He is currently on cefepime. White count 10.2. Hemoglobin 9.8. Platelets 185. Sodium 145. Potassium 3.8. Bicarb 21. BUN 21. Creatinine 1.2. Glucose 99. He remains on bronchodilators. Heparin for DVT prophylaxis. The patient is seen today August 08, 2024 in follow-up on the regular medical floor. He is currently resting comfortably in bed. Awake and alert in no acute distress. He is maintaining good O2 saturations in the 90s on room air. He has normal staying at 50 mL/h. His blood cultures were positive for Proteus mirabilis. He remains on ceftriaxone. Sodium 144. Potassium 3.9. Bicarb 21. BUN 17. Creatinine 1.2. Glucose 109. Heparin for DVT prophylaxis. The patient is seen today August 09, 2024 in follow-up on the regular medical floor. He is currently resting comfortably in bed. Awake and alert in no acute distress. He is maintaining good O2 saturations in the 90s on room air. He is continued on ceftriaxone. Remains on bronchodilators. Heparin for DVT prophylaxis. Blood cultures positive for Proteus mirabilis. The patient is seen today August 10, 2024 in follow-up on the regular medical floor. He is resting comfortably in bed. Awake and alert in no acute distress. Maintaining O2 saturations in the 90s on room air. Normal saline at 50 mL/h. He is continued on heparin for DVT prophylaxis. Antibiotics in the form of ceftriaxone. Blood cultures were positive for Proteus mirabilis. Objective - Vital Signs Vital signs: Vital Signs Temp 98.6 F 08/10/24 08:00 Pulse 72 08/10/24 09:13 Resp 16 08/10/24 08:00 BP 114/56 08/10/24 08:00 Pulse Ox 95 08/10/24 08:00 FiO2 Intake & Output 08/09/24 08/10/24 08/10/24 18:59 06:59 18:59 Output Total 1000 400 Balance -1000 -400 Output: Urine 1000 400 Uretheral (Ko) 400 Other: Voiding Method Indwelling Catheter Indwelling Catheter Indwelling Catheter - Exam GENERAL EXAM: Alert, 84-year-old male, resting comfortably in bed, on room air, in no apparent distress. HEAD: Normocephalic. EYES: Normal reaction of pupils, equal size. NOSE: Clear with pink turbinates. THROAT: No erythema or exudates. NECK: No masses, no JVD. CHEST: No chest wall deformity. LUNGS: Equal air entry with no crackles, wheeze, rhonchi or dullness. CVS: S1 and S2 normal with no audible murmur, regular rhythm. ABDOMEN: No hepatosplenomegaly, normal bowel sounds, no guarding or rigidity. SPINE: No scoliosis or deformity SKIN: No rashes CENTRAL NERVOUS SYSTEM: No focal deficits, tone is normal in all 4 extremities. EXTREMITIES: There is no peripheral edema. No clubbing, no cyanosis. Peripheral pulses are intact. - Labs CBC & Chem 7: 08/07/24 03:20 08/08/24 03:12 Assessment and Plan Assessment: Septic shock, Proteus mirabilis bacteremia in the blood final culture and currently on ceftriaxone History of VRE infection Acute kidney injury secondary to septic shock/acute tubular necrosis, recovered History of recent cervical fracture requiring surgery History of peripheral vessel occlusive disease Dyslipidemia, on Lipitor History of benign essential hypertension, presently hypotensive mostly because of his septic shock History of degenerative joint disease History of obstructive sleep apnea syndrome History of underlying dementia History of seizure disorder maintained on Keppra Plan: The patient was seen and evaluated Medications reviewed Antibiotics per ID service Plan is to discharge to [facility] I have personally seen and examined the patient, performed the documentation and the assessment and plan as written. Number of minutes spent on the visit: 10 Dictation was produced using [employer] dictation software. Please excuse any grammatical, word or spelling errors.
[2024-08-10 13:07] VITALS: PULSE 75
--- NOTE | 2024-08-10 13:30 | P.PN ---
Subjective Progress Note Date: 08/10/24 Principal diagnosis: Reason for follow-up is sepsis secondary catheter associated UTI patient is a 84-year-old male with a past medical history significant for hypertension hyperlipidemia sleep apnea did have a history of recurrent urinary tract infection patient has been sent to the hospital from the local [facility] for evaluation of mental status changes patient has been diagnosed with sepsis secondary to catheter associated UTI with initial admission to the [facility]. On today's evaluation that is 08/10/2024, Patient is afebrile this morning patient denies having any chest pain shortness of breath or cough, the patient is currently on room air, patient denies any abdominal pain no diarrhea no nausea no vomiting no new symptoms. No new lab has been obtained today Objective - Vital Signs Vital signs: Vital Signs Temp 98.6 F 08/10/24 08:00 Pulse 75 08/10/24 13:06 Resp 16 08/10/24 08:00 BP 114/56 08/10/24 08:00 Pulse Ox 95 08/10/24 08:00 FiO2 Intake & Output 08/09/24 08/10/24 08/10/24 18:59 06:59 18:59 Output Total 1000 400 Balance -1000 -400 Output: Urine 1000 400 Uretheral (Ko) 400 Other: Voiding Method Indwelling Catheter Indwelling Catheter Indwelling Catheter - Exam GENERAL DESCRIPTION: An elderly male lying in bed in no distress RESPIRATORY SYSTEM: Unlabored breathing , decreased breath sounds at bases HEART: S1 S2 regular rate and rhythm , ABDOMEN: Soft , no tenderness EXTREMITIES: No edema feet - Labs CBC & Chem 7: 08/07/24 03:20 08/08/24 03:12 Assessment and Plan (1) Sepsis Current Visit: Yes Status: Acute Code(s): A41.9 - SEPSIS, UNSPECIFIED ORGANISM SNOMED Code(s): 56090926 (2) Catheter-associated urinary tract infection Current Visit: Yes Status: Acute Code(s): T83.511A - I/I REACT D/T INDWELLING URETHRAL CATHETER, INIT; N39.0 - URINARY TRACT INFECTION, SITE NOT SPECIFIED SNOMED Code(s): 776090740 (3) Bacteremia Current Visit: Yes Status: Acute Code(s): R78.81 - BACTEREMIA SNOMED Code(s): 9549384 Plan: 1patient presented to hospital with sepsis in this patient who did have hypotension elevated white count source is likely catheter associated UTI as no other obvious focus of infection no evidence of pneumonia abdominal pain soft no evidence of any cellulitis or joint swelling will need to cover for the enteric gram-negative to the likely pathogen however patient did have last urine culture positive for VRE 2-patient with a positive blood culture with Proteus source is likely urine unfortunately no urine culture 3-patient is afebrile and has shown some clinical improvement with Rocephin 2 g daily which will be continued while inpatient however the patient be able to finish therapy with oral Ceftin 500 mg twice daily for 10 days on discharge Dictation was produced using [employer] dictation software. please excuse any grammatical, word or spelling errors. Time with Patient: Less than 30
--- NOTE | 2024-08-10 14:16 | P.DS ---
Providers Date of admission: 08/04/24 12:55 Expected date of discharge: 08/10/24 Attending physician: Arun George MD Consults: 08/04/24 12:48 Consult Physician Routine Consulting Provider: Leon Robbins Consult Reason/Comments: infection Do you want consulting provider notified?: Yes 08/04/24 12:53 Consult Physician Stat Consulting Provider: Manohar Claire Consult Reason/Comments: icu patient Do you want consulting provider notified?: Yes 08/04/24 12:59 Consult Physician Routine Consulting Provider: Jerald Soriano Consult Reason/Comments: tran Do you want consulting provider notified?: Yes 08/06/24 09:17 Consult Physician Routine Consulting Provider: Franco Hicks Consult Reason/Comments: Post surgical sary still Do you want consulting provider notified?: Yes Primary care physician: [facility] Course: 84-year-old male with PMH of PVD status post stent of the right common iliac vein, HTN, HLD presents to the ED for altered mental status and hypotension. He was recently admitted from 07/06-07/26 after a mechanical fall, underwent open treatment T9-10 AO type B2 fracture, T8-11 posterior stabilized fusion, T8-11 segmental instrumentation, vertebral body augmentation and screw augmentation with cement T8 and T11 with Dr. Hicks on 07/23. Post operatively there was concerns for seizures and he was started on Keppra. He was discharged to SNF with a Ko catheter with instructions to attempt voiding trial while there and also with a Urology follow up. It is unclear if Ko catheter was changed while at SNF. In the ED he underwent extensive evaluation. T 97F, HR 85, RR 16, BP 83/37, 95% on 3L NC. CBC, Coag panel, CMP significant for WBC 20.1, RBC 3.43, Hg 10.5, Hct 32.1, INR 1.2, Cl 108, BUN 34, Cr 2.77, glu 109, Ca 7.8, alb 2.8. Lactic acid 3.1. Troponin 0.061. RSV/Flu/COVID negative. EKG showed sinus rhythm no ST or T wave changes. CXR showed chronic changes without evidence of acute pulmonary disease. Central line was placed in the right femoral groin. He was started on Levophed and Daptomycin and admitted to ICU for further workup and management. ID consulted, Cefepime added. BCx prelim growing Proteus. Daptomycin discontinued. Levophed was weaned off and patient transferred out of ICU. Ko catheter discontinued 08/09 and patient voiding freely. 08/10 Patient was seen and examined. Doing well. No complaints today. Voiding freely. ID recommends 10 days of Ceftin 500 mg PO BID on discharge. Plans for discharge to SNF today. General: non toxic, no distress, appears at stated age Derm: warm, dry, venous stasis changes lower extremities Head: atraumatic, normocephalic, symmetric Eyes: EOMI, no lid lag, anicteric sclera Mouth: no lip lesion, mucus membranes moist Cardiovascular: S1S2 reg, no murmur Lungs: Clear to auscultation bilaterally, no rhonchi, no rales , no accessory muscle use Ext: no gross muscle atrophy, no edema, no contractures Neuro: No focal neurologic deficits Psych: Alert, oriented x 2 Discharge Diagnosis: Acute metabolic encephalopathy likely due to below Septic shock due to Proteus bacteremia Demand ischemia Normocytic anemia T9 and T10 endplate fracture status post mechanical fall status post T8-T11 stabilization for T9/T10 endplate fractures with Dr. Hicks on 07/23 PVD status post stent of right common iliac vein Hypertension Hyperlipidemia BPH Concerns for seizures Dementia This complex discharge took 35 minutes to complete. Patient Condition at Discharge: Stable Plan - Discharge Summary Discharge Rx Participant: No New Discharge Prescriptions: New cefUROXime axetiL [Ceftin] 500 mg PO BID 10 Days #20 tab Sodium Bicarbonate Tab 650 mg PO BID 7 Days tab QUEtiapine [SEROquel] 12.5 mg PO HS PRN tab PRN Reason: Agitation Continue PARoxetine HCL [Paxil] 40 mg PO DAILY Folic Acid 1 mg PO DAILY Ferrous Sulfate [Iron (65 MG Elemental)] 325 mg PO DAILY Magnesium Hydroxide [Milk of Magnesia] 2,400 mg PO DAILY PRN ml PRN Reason: Constipation Acetaminophen Tab [Tylenol] 650 mg PO Q6HR PRN tab PRN Reason: Mild Pain Or Fever > 100.5 Sennosides-Docusate Sodium [Senokot-S] 2 tab PO DAILY PRN PRN Reason: Constipation Albuterol Nebulized [Ventolin Nebulized (Accuneb)] 1.25 mg INHALATION RT-TID Saccharomyces Boulardii [Saccharomycin Df] 250 mg PO BID sitaGLIPtin [Januvia] 100 mg PO DAILY HYDROcodone/APAP 10-325MG [Sundown 10-325] 1 each PO Q6H PRN #12 tab PRN Reason: Pain Scale 7 - 10 Tamsulosin [Flomax] 0.4 mg PO DAILY lisinopriL 2.5 mg PO DAILY Atorvastatin [Lipitor] 20 mg PO HS #0 tab Sennosides [Senokot] 8.6 mg PO DAILY tab Dermaseptin 1 applic TOPICAL BID PRN PRN Reason: brief changes Naloxone HCl [Narcan] 4 mg NASAL DAILY PRN PRN Reason: overdose levETIRAcetam [Keppra] 500 mg PO BID Dermaseptin 1 applic TOPICAL BID Discontinued QUEtiapine [SEROquel] 12.5 mg PO HS tab Discharge Medication List PARoxetine HCL [Paxil] 40 mg PO DAILY 06/08/14 [History] Folic Acid 1 mg PO DAILY 07/12/21 [History] Tamsulosin [Flomax] 0.4 mg PO DAILY 07/12/21 [History] lisinopriL 2.5 mg PO DAILY 04/23/23 [History] Ferrous Sulfate [Iron (65 MG Elemental)] 325 mg PO DAILY 07/06/24 [History] Acetaminophen Tab [Tylenol] 650 mg PO Q6HR PRN tab 07/26/24 [Rx] Atorvastatin [Lipitor] 20 mg PO HS #0 tab 07/26/24 [Rx] Magnesium Hydroxide [Milk of Magnesia] 2,400 mg PO DAILY PRN ml 07/26/24 [Rx] Sennosides [Senokot] 8.6 mg PO DAILY tab 07/26/24 [Rx] Albuterol Nebulized [Ventolin Nebulized (Accuneb)] 1.25 mg INHALATION RT-TID 08/04/24 [History] Dermaseptin 1 applic TOPICAL BID 08/04/24 [History] Dermaseptin 1 applic TOPICAL BID PRN 08/04/24 [History] Naloxone HCl [Narcan] 4 mg NASAL DAILY PRN 08/04/24 [History] Saccharomyces Boulardii [Saccharomycin Df] 250 mg PO BID 08/04/24 [History] Sennosides-Docusate Sodium [Senokot-S] 2 tab PO DAILY PRN 08/04/24 [History] levETIRAcetam [Keppra] 500 mg PO BID 08/04/24 [History] sitaGLIPtin [Januvia] 100 mg PO DAILY 08/04/24 [History] HYDROcodone/APAP 10-325MG [Sundown 10-325] 1 each PO Q6H PRN #12 tab 08/10/24 [Rx] QUEtiapine [SEROquel] 12.5 mg PO HS PRN tab 08/10/24 [Rx] Sodium Bicarbonate Tab 650 mg PO BID 7 Days tab 08/10/24 [Rx] cefUROXime axetiL [Ceftin] 500 mg PO BID 10 Days #20 tab 08/10/24 [Rx] Follow up Appointment(s)/Referral(s): Isela Restrepo, [NON-STAFF] - As Needed Franco Hicks DO [Doctor of Osteopathic Medicine] - 1 Week Jimmy Michele DO [Primary Care Provider] - 1-2 days
[2024-08-10 16:24] LABS: Calcium 8.1 mg/dL (8.7-10.3); Carbon Dioxide 23.8 mmol/L (21.6-31.8); Chloride 109 mmol/L (96-109); Glucose 104 mg/dL (70-110); Potassium 3.8 mmol/L (3.5-5.5); Sodium 143 mmol/L (135-145)
--- NOTE | 2024-08-10 17:34 | CDI ---
Documentation Clarification Form Date: 08/10/2024 05:10:37 PM From: Marianna Woodruff RN CCDS Phone: [phone] Admit Date: 08/04/2024 12:55:00 PM Patient Name: Sabine Delgado Visit Number: [id number] Discharge Date: ATTENTION: The Clinical Documentation Specialists (CDI) and [facility] Coding Staff appreciate your assistance in clarifying documentation. Please respond to the clarification below the line at the bottom and electronically sign. The CDI & [facility] Coding staff will review the response and follow-up if needed. Please note: Queries are made part of the Legal Health Record. If you have any questions, please contact the author of this message via ITS. Doctor: Oscar Sotomayor Stage II pressure ulcer of the left and right buttock is documented 08/10, Wound care consult. For each diagnosis, documentation must be clear to determine if the condition was present at the time of the patients inpatient admission or developed during the hospital stay. Additional clarification regarding the Stage II pressure ulcer of the left and right buttock is requested. History/Risk Factors: 84 year old male presents to the ED with altered mental status and hypotension. Medical History: HTN, 07/23 Spinal surgery T9 and T10 endplate fracture status post mechanical fall status post T8 T11 stabilization for T9/L31ivxlmrou fractures. HTN, BPH, HLD and Dementia. 08/04, HP Clinical Indicators: Nursing Pressure Injury assessment 08/05 Bilateral Buttock Stage 2 Treatment: 08/05 Foam with border, Turn Q2H offloading, Absorbant Underpad, Specialty Bed, Turn Q2 and Avoid brief or diaper. 08/10 Apply honey gel Definition of Present on Admission (POA): A diagnosis present at the time the order for admission to inpatient status was written. Please clarify if the Stage II pressure ulcer of the left and right buttock was POA [ x ] Y = Yes, the condition was present at the time of the order for inpatient admission. [ ] N = No, the condition was not present at the time of the order for inpatient admission. [ ] W = Clinically undetermined if the condition was present at the time of the order for inpatient admission. (Template Last Revised: December 2020) SHANA
--- NOTE | 2024-08-10 20:39 | P.PN ---
Subjective patient is seen for follow-up for acute kidney injury. Renal function has improved. No significant complaints today. Serum creatinine decreased to 1.0 mg/dL today. Objective - Vital Signs Vital signs: Vital Signs Temp 98.6 F 08/10/24 08:00 Pulse 75 08/10/24 13:06 Resp 16 08/10/24 08:00 BP 114/56 08/10/24 08:00 Pulse Ox 95 08/10/24 08:00 FiO2 Intake & Output 08/10/24 08/10/24 08/11/24 06:59 18:59 06:59 Output Total 400 Balance -400 Weight 105.6 kg Output: Urine 400 Other: Voiding Method Indwelling Catheter Indwelling Catheter - Exam patient is awake, comfortable, no acute distress. Examination of the heart S1 and S2 Examination of the lungs bilateral breath sounds are heard Abdomen is soft nontender Examination of the extremities shows no significant edema OUTSIDE PLANT TECHNICIAN exam grossly intact. - Labs CBC & Chem 7: 08/07/24 03:20 08/10/24 10:59 Labs: Abnormal Lab Results - Last 24 Hours (Table) 08/10/24 Range/Units 10:59 Calcium 8.1 L (8.7-10.3) mg/dL Assessment and Plan Assessment: 1. Acute kidney injury secondary to ATN secondary to septic shock. Baseline creatinine near 1 and was elevated at 2.7 this admission - stable at 1.0 today. No hydronephrosis noted on kidney ultrasound. Patient has chronic indwelling Ko catheter 2. Septic shock. Blood culture positive for Proteus. Source possibly UTI. On IV antibiotics. ID following. 3. Hypomagnesemia from poor intake. Replaced. Improved. 4. Diabetes mellitus. 5. Metabolic acidosis secondary to IV fluids. On oral bicarb. Stable. Plan: Continue oral sodium bicarb Stable for discharge from nephrology standpoint.
== END 2024-08-10 17:28 | DRG 698 ==
LOC: EC 11:17 → 2SICU 12:55 → 4SSUR 08-06 14:44
PROVIDERS: ADMIT Internal Medicine; ATTEND Internal Medicine
PROC: 3E033XZ Introduction of Vasopressor into Peripheral Vein, Percutaneous Approach (ICD-10-PCS; principal; 2024-08-04)
PROC: 06HY33Z Insertion of Infusion Device into Lower Vein, Percutaneous Approach (ICD-10-PCS; principal; 2024-08-04)
DX: T83.518A Infection and inflammatory reaction due to other urinary catheter, initial encounter (principal); A41.59 Other Gram-negative sepsis; R65.21 Severe sepsis with septic shock; N17.0 Acute kidney failure with tubular necrosis; I21.A1 Myocardial infarction type 2; G93.41 Metabolic encephalopathy; F03.94 Unspecified dementia, unspecified severity, with anxiety; F03.93 Unspecified dementia, unspecified severity, with mood disturbance; E87.20 Acidosis, unspecified; N39.0 Urinary tract infection, site not specified; Z16.21 Resistance to vancomycin; L89.322 Pressure ulcer of left buttock, stage 2; L89.312 Pressure ulcer of right buttock, stage 2; E11.51 Type 2 diabetes mellitus with diabetic peripheral angiopathy without gangrene; G40.909 Epilepsy, unspecified, not intractable, without status epilepticus; D64.9 Anemia, unspecified; J44.89 Other specified chronic obstructive pulmonary disease; I10 Essential (primary) hypertension; I08.1 Rheumatic disorders of both mitral and tricuspid valves; Z95.820 Peripheral vascular angioplasty status with implants and grafts; E78.5 Hyperlipidemia, unspecified; B96.4 Proteus (mirabilis) (morganii) as the cause of diseases classified elsewhere; I87.8 Other specified disorders of veins; E83.42 Hypomagnesemia; N40.0 Benign prostatic hyperplasia without lower urinary tract symptoms; G47.33 Obstructive sleep apnea (adult) (pediatric); H91.90 Unspecified hearing loss, unspecified ear; B95.2 Enterococcus as the cause of diseases classified elsewhere; B96.20 Unspecified Escherichia coli [E. coli] as the cause of diseases classified elsewhere; Y84.6 Urinary catheterization as the cause of abnormal reaction of the patient, or of later complication, without mention of misadventure at the time of the procedure; Z96.643 Presence of artificial hip joint, bilateral; Z86.011 Personal history of benign neoplasm of the brain; Z79.899 Other long term (current) drug therapy; Z79.84 Long term (current) use of oral hypoglycemic drugs; Z74.01 Bed confinement status; Z87.891 Personal history of nicotine dependence; Z91.81 History of falling; Z11.52 Encounter for screening for COVID-19; Z98.1 Arthrodesis status; Z87.440 Personal history of urinary (tract) infections; Z86.19 Personal history of other infectious and parasitic diseases
CPT/HCPCS: 36415; 71045; 76770; 80048; 80053; 81001; 83605; 83735; 84484; 85025; 85027; 85610; 85730; 87040; 87077; 87186; 87636; 93005; 93306; 94640; 96365; 96366; 96368; 96372; 96375; 99291

== ENCOUNTER 2024-08-31 18:45 | Observation (INO) | payer MEDICARE, OTHER ==
--- NOTE | 2024-08-31 19:04 | ED ---
Altered Mental Status HPI - General Stated Complaint: Mental Health Time Seen by Provider: 08/31/24 18:52 Source: patient, EMS, RN notes reviewed, old records reviewed Mode of arrival: EMS Limitations: altered mental status - History of Present Illness Initial Comments: This is an 84-year-old male with recent hospital admission patient is coming in from [facility] where he is at rehabilitation for acute inpatient hospital admission a week ago, patient presents today in significant distress anxious shaking and nervous but a poor historian secondary to clinical condition MD Complaint: altered mental status, confusion Severity: moderate Consistency of Symptoms: getting worse Associated Symptoms: denies other symptoms Treatments Prior to Arrival: oxygen - Related Data Home Medications Medication Instructions Recorded Confirmed Folic Acid 1 mg PO DAILY 07/12/21 08/31/24 Tamsulosin [Flomax] 0.4 mg PO DAILY 07/12/21 08/31/24 lisinopriL 2.5 mg PO DAILY 04/23/23 08/31/24 Ferrous Sulfate [Iron (65 MG 325 mg PO DAILY 07/06/24 08/31/24 Elemental)] Albuterol Nebulized [Ventolin 1.25 mg INHALATION RT-Q8H 08/04/24 08/31/24 Nebulized (Accuneb)] Naloxone HCl [Narcan] 4 mg NASAL Q5M PRN 08/04/24 08/31/24 Saccharomyces Boulardii 250 mg PO BID 08/04/24 08/31/24 [Saccharomycin Df] Sennosides-Docusate Sodium 1 tab PO DAILY 08/04/24 08/31/24 [Senokot-S] levETIRAcetam [Keppra] 500 mg PO BID 08/04/24 08/31/24 Acetaminophen [Tylenol 8 Hour] 650 mg PO Q6H PRN 08/31/24 08/31/24 Orajel 3x Toothache & 1 applic MM Q6H PRN 08/31/24 08/31/24 Gum,Mouth,Throat Gel 20-0.26-0.15% Sennosides [Senokot] 17.2 mg PO DAILY PRN 08/31/24 08/31/24 lamoTRIgine [LaMICtal] 25 mg PO HS 08/31/24 08/31/24 Previous Rx's Medication Instructions Recorded Atorvastatin [Lipitor] 20 mg PO HS #0 tab 07/26/24 Magnesium Hydroxide [Milk of 2,400 mg PO DAILY PRN ml 07/26/24 Magnesia] PARoxetine [Paxil] 50 mg PO DAILY tab 09/02/24 Allergies Allergy/AdvReac Type Severity Reaction Status Date / Time Penicillins Allergy Rash/Hives Verified 08/31/24 20:11 Review of Systems ROS Statement: Those systems with pertinent positive or pertinent negative responses have been documented in the HPI. ROS Other: All systems not noted in ROS Statement are negative. Past Medical History Past Medical History: Asthma, Cancer, Hyperlipidemia, Hypertension, Osteoarthritis (OA), Sleep Apnea/CPAP/BIPAP Additional Past Medical History / Comment(s): cpap, fell in october 2013 and fractured left hip, periodontal infection that delayed hip surgery. 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, VRE Date of last positivie culture/infection: 02/06/22 VRE MDRO Source:: Urine Past Surgical History: Cholecystectomy, Joint Replacement, Orthopedic Surgery Additional Past Surgical History / Comment(s): brain tumor removed as a teen, cami hip replacement Past Anesthesia/Blood Transfusion Reactions: No Reported Reaction Additional Past Anesthesia/Blood Transfusion Reaction / Comment(s): very severe sleep apnea per patient Past Psychological History: Anxiety, Depression Smoking Status: Former smoker Past Alcohol Use History: None Reported Past Drug Use History: None Reported - Past Family History Brother(s) Family Medical History: Cancer Additional Family Medical History / Comment(s): kidney,liver General Exam Limitations: altered mental status, physical limitation General appearance: alert, anxious Head exam: Present: atraumatic, normocephalic, normal inspection Eye exam: Present: normal appearance, PERRL, EOMI. Absent: scleral icterus, conjunctival injection, periorbital swelling ENT exam: Present: normal exam, mucous membranes moist Neck exam: Present: normal inspection. Absent: tenderness, meningismus, lymphadenopathy Respiratory exam: Present: normal lung sounds bilaterally. Absent: respiratory distress, wheezes, rales, rhonchi, stridor Cardiovascular Exam: Present: regular rate, normal rhythm, normal heart sounds. Absent: systolic murmur, diastolic murmur, rubs, gallop, clicks GI/Abdominal exam: Present: soft, normal bowel sounds. Absent: distended, tenderness, guarding, rebound, rigid Extremities exam: Present: normal inspection, full ROM, normal capillary refill. Absent: tenderness, pedal edema, joint swelling, calf tenderness Back exam: Present: normal inspection Neurological exam: Present: alert, oriented X3, CN II-XII intact Psychiatric exam: Present: normal affect, normal mood Skin exam: Present: warm, dry, intact, normal color. Absent: rash Course Vital Signs 08/31/24 08/31/24 09/01/24 18:51 21:19 00:57 Temperature 98.7 F Pulse Rate 99 92 72 Respiratory 24 16 18 Rate Blood Pressure 124/78 125/55 130/60 O2 Sat by Pulse 95 95 96 Oximetry 09/01/24 09/01/24 09/01/24 04:56 08:00 11:00 Temperature 97.6 F 98.5 F Pulse Rate 62 64 61 Respiratory 17 16 20 Rate Blood Pressure 131/59 144/72 127/53 O2 Sat by Pulse 95 98 98 Oximetry 09/01/24 09/01/24 09/01/24 12:00 13:00 15:00 Temperature Pulse Rate 58 L 63 65 Respiratory 16 20 20 Rate Blood Pressure 127/83 130/60 133/61 O2 Sat by Pulse 98 98 98 Oximetry 09/01/24 09/01/24 16:00 17:34 Temperature Pulse Rate 68 65 Respiratory 20 20 Rate Blood Pressure 154/70 135/68 O2 Sat by Pulse 96 98 Oximetry - Reevaluation(s) Reevaluation #1: 08/31/24 19:03 Medical records reviewed Reevaluation #2: Patient symptoms unchanged Reevaluation #3: Patient informed of results questions answered Reevaluation #4: Was pt. sent in by a medical professional or institution (, PA, FACE CLEANER, urgent care, hospital, or halfway...) When possible be specific @ -no Did you speak to anyone other than the patient for history (EMS, parent, family, police, friend...)? What history was obtained from this source @ -no Did you review nursing and triage notes (agree or disagree)? Why? @ -agree Are old charts reviewed (outside hosp., previous admission, EMS record, old EKG, old radiological studies, urgent care reports/EKG's, halfway records)? Report findings @ -yes Differential Diagnosis (chest pain, altered mental status, abdominal pain women, abdominal pain men, vaginal bleeding, weakness, fever, dyspnea, syncope, headache, dizziness, GI bleed, back pain, seizure, CVA, palpatations, mental health, musculoskeletal)? @ -prior EKG interpreted by me (3pts min.). @ -yes X-rays interpreted by me (1pt min.). @ -no CT interpreted by me (1pt min.). @ -no U/S interpreted by me (1pt. min.). @ -no What testing was considered but not performed or refused? (CT, X-rays, U/S, labs)? Why? @ -none What meds were considered but not given or refused? Why? @ -none Did you discuss the management of the patient with other professionals (pr ofessionals i.e. , PA, FACE CLEANER, lab, RT, psych nurse, geriatric social worker, meteorological engineer, teacher, service officer, case advocate)? Give summary @ -no Was smoking cessation discussed for >3mins.? @ -no Was critical care preformed (if so, how long)? @ -no Were there social determinants of health that impacted care today? How? (Homelessness, low income, unemployed, alcoholism, drug addiction, transportation, low edu. Level, literacy, decrease access to med. care, [facility], rehab)? @ -none Was there de-escalation of care discussed even if they declined (Discuss DNR or withdrawal of care, Hospice)? DNR status @ -no What co-morbidities impacted this encounter? (DM, HTN, Smoking, COPD, CAD, Cancer, CVA, ARF, Chemo, Hep., AIDS, mental health diagnosis, sleep apnea, morbid obesity)? @ -none Was patient admitted / discharged? Hospital course, mention meds given and route, prescriptions, significant lab abnormalities, going to OR and other pertinent info. @ - 84 male, this patient will be admitted for altered mental status need for psychiatric evaluation weakness and persistent treatment needed secondary to failure of activities of daily living Admitted Undiagnosed new problem with uncertain prognosis? @ -no Drug Therapy requiring intensive monitoring for toxicity (Heparin, Nitro, Insulin, Cardizem)? @ -no Were any procedures done? @ -no Diagnosis/symptom? @ -Weakness debility and altered mental status Acute, or Chronic, or Acute on Chronic? @ -Acute Uncomplicated (without systemic symptoms) or Complicated (systemic symptoms)? @ -Complicated Side effects of treatment? @ -no Exacerbation, Progression, or Severe Exacerbation? @ -exacerbation Poses a threat to life or bodily function? How? (Chest pain, [place], [place], pneumonia, PE, COPD, DKA, ARF, appy, cholecystitis, CVA, Diverticulitis, Homicidal, Suicidal, threat to staff... and all critical care pts) @ -yes extremes of age Reevaluation #5: Differential Altered Mental Status: Hypoglycemia, DKA, hypercapnia, ETOH, overdose, CO poisoning, trauma, myxedema coma, HTN encephalopathy, infection, encephalitis, psychosis, intercranial hemorrhage, hepatic encephalopathy, meningitis, CVA, this is not meant to be an all-inclusive list Differential Mental Health Depression, anxiety, bipolar, psychosis, schizophrenia, borderline personality, situational depression, adjustment disorder, behavioral disorder, brain tumor, malingering, substance abuse, encephalopathy, medication reaction, dementia, hypothyroidism, degenerative neurologic disorder, lupus.... This is not meant to be all-inclusive list - Consultations Consultation #1: Spoke with admitting who agrees to admit this patient Medical Decision Making - Medical Decision Making 84 male, this patient will be admitted for altered mental status need for psychiatric evaluation weakness and persistent treatment needed secondary to failure of activities of daily living - Lab Data Result diagrams: 08/31/24 19:22 09/04/24 15:09 - EKG Data -: EKG Interpreted by Me (EKG is sinus tachycardia 100 [place] 240 QRS 124 QTc 417) Disposition Clinical Impression: Delirium due to general medical condition, Altered mental status, Anxiety Disposition: ADMITTED IP TO THIS HOSP Condition: Stable Is patient prescribed a controlled substance at d/c from ED?: No Time of Disposition: 20:00
[2024-08-31] MEDS ORDERED: ONDANSETRON 4 MG/2 ML VIAL IVP PRN (19:15)
[2024-08-31] MEDS ORDERED: NALOXONE 0.4 MG/ML 1 ML VIAL IV PRN (19:15)
[2024-08-31] MEDS: LORazepam 2 MG/ML INJ IV STA ×2 (19:27→21:34)
[2024-08-31] MEDS: SODIUM CHLORIDE 0.9% 1,000 ML IV ONE (19:29)
[2024-08-31 19:31] LABS: Basophils % (A) 0 %; Eosinophils # (A) 0.3 k/uL (0-0.7); Eosinophils % (A) 3 %; HCT 34.5 % (39.0-53.0); HGB 11.8 gm/dL (13.0-17.5); Lymphocytes # (A) 2.4 k/uL (1.0-4.8); Lymphocytes % (A) 23 %; MCH 31.9 pg (25.0-35.0); MCHC 34.2 g/dL (31.0-37.0); MCV 93.2 fL (80.0-100.0); Monocytes # (A) 0.5 k/uL (0-1.0); Monocytes % (A) 5 %; Neutrophils # (A) 6.9 k/uL (1.3-7.7); Neutrophils % (A) 68 %; Platelet Count 201 k/uL (150-450); RDW 14.1 % (11.5-15.5); WBC 10.2 k/uL (3.8-10.6)
[2024-08-31 19:40] LABS: Acetaminophen <10.0 ug/mL; Alcohol <10 mg/dL; Salicylate <1.0 mg/dL
[2024-08-31] MEDS: SODIUM CHLORIDE 0.9% 1,000 ML IV STA (19:51)
[2024-08-31] MEDS: SODIUM CHLORIDE 0.9% 1,000 ML IV SCH (20:49)
[2024-08-31 20:52] LABS: ALT 18 U/L (4-49); African American GFR (CKD) 67 (>60 ml/min/1.73 sqM); Albumin 4.4 g/dL (3.5-5.0); Albumin/Globulin Ratio 1.2; Anion Gap 14 mmol/L; Blood Urea Nitrogen 21 mg/dL (9-20); Calcium 9.8 mg/dL (8.4-10.2); Carbon Dioxide 22 mmol/L (22-30); Chloride 104 mmol/L (98-107); Globulin 3.8 g/dL; Glucose 106 mg/dL (74-99); Non-African American GFR(CKD) 58 (>60 ml/min/1.73 sqM); Sodium 140 mmol/L (137-145); Total Bilirubin 0.8 mg/dL (0.2-1.3); Total Protein 8.2 g/dL (6.3-8.2)
[2024-08-31 20:56] LABS: AST 29 U/L (17-59); Alkaline Phosphatase 93 U/L (38-126); Potassium 4.8 mmol/L (3.5-5.1)
--- NOTE | 2024-09-01 02:24 | P.HPIM ---
History of Present Illness H&P Date: 09/01/24 History of present illness; 84-year-old man with PMH of hypertension, hyperl ipidemia, sleep apnea on CPAP and a history of some form of brain cancer when he was 16 years old. Presents to the emergency department from [facility] where he is at rehabilitation for acute inpatient hospital admission a week ago where he was diagnosed with Proteus mirabilis bactaremia. Presenting today in significant distress anxious, shaking, nervous however he is a poor historian secondary to his clinical condition. When seen at bedside the patient states that he feels as though he is feeling better than he was earlier. He was unsure that he was in the hospital, however endorses no acute complaints at this time. He states that he had some confusion, however we are unsure of what patient's baseline mental status is and thus unable to assess how distinct from baseline this really is. At this time he denies chest pain, shortness of breath, cough, difficulty with urination. He states that he performs ADLs utilize a walker at home. He has no acute complaints at this time, and states he is anxious to be able to get home. Labratory review: -WBCs 10.2, Hgb 11.8, hematocrit 34.5, platelet 201; sodium 140, potassium 4.8, BUN 21, creatinine 1.15, AST 29, ALT 18, alkaline phosphatase 93 -Toxicology negative for salicylates, negative for acetaminophen, negative for serum alcohol Imaging: -EKG done in the ER showed heart rate of 100, sinus tachycardia with first- degree AV block; QTc 417 Vitals: -Blood pressure 120/78, heart rate 89, respiratory rate 24, SpO2 95% on room air Patient admitted to internal medicine service REVIEW OF SYSTEMS: CONSTITUTIONAL: No fever, no malaise, no fatigue. HEENT: No recent visual problems or hearing problems. Denied any sore throat. CARDIOVASCULAR: No chest pain, orthopnea, PND, no palpitations, no syncope. PULMONARY: No shortness of breath, no cough, no hemoptysis. GASTROINTESTINAL: No diarrhea, no nausea, no vomiting, no abdominal pain. NEUROLOGICAL: No headaches, no weakness, no numbness. HEMATOLOGICAL: Denies any bleeding or petechiae. GENITOURINARY: Denies any burning micturition, frequency, or urgency. MUSCULOSKELETAL/RHEUMATOLOGICAL: Denies any joint pain, swelling, or any muscle pain. ENDOCRINE: Denies any polyuria or polydipsia. The rest of the 14-point review of systems is negative. PHYSICAL EXAMINATION: GENERAL: The patient is alert and oriented x2, not in any acute distress. Well developed, well nourished. HEENT: Pupils are round and equally reacting to light. EOMI. No scleral icterus. No conjunctival pallor. Normocephalic, atraumatic. No pharyngeal erythema. No thyromegaly. CARDIOVASCULAR: S1 and S2 present. No murmurs, rubs, or gallops. PULMONARY: Chest is clear to auscultation, no wheezing or crackles. ABDOMEN: Soft, nontender, nondistended, normoactive bowel sounds. No palpable organomegaly. MUSCULOSKELETAL: No joint swelling or deformity. EXTREMITIES: No cyanosis, clubbing, or pedal edema. NEUROLOGICAL: Gross neurological examination did not reveal any focal deficits. SKIN: No rashes. Assessment and plan 84-year-old male with PMH of hypertension, hyperlipidemia, sleep apnea on CPAP. Presents emergency department with altered mental status from rehab facility after previous hospitalization a week ago. Discussed case with the ED, and admitted the patient to the internal medicine service for further evaluation. #Altered mental status, confusion #Anxiety -Patient given 2 mg Ativan IV; continue with Ativan 0.5 mg IV every 6 hours as needed -Urine drug screen pending -Urinalysis pending -Currently receiving 75 cc/h normal saline -Psychiatry consulted -PT consulted #Hyperlipidemia -Continue patient on home Lipitor 20 mg daily #Hypertension -Continue patient home lisinopril 2.5 mg daily #History of brain cancer GI prohylaxis: Protonix 40 mg daily DVT prophylaxis: Lovenox 40 mg SQ daily Dictation was produced using [employer]olo[employer] software. please excuse any grammatical, word or spelling errors. Past Medical History Past Medical History: Asthma, Cancer, Hyperlipidemia, Hypertension, Osteoarthritis (OA), Sleep Apnea/CPAP/BIPAP Additional Past Medical History / Comment(s): cpap, fell in october 2013 and fractured left hip, periodontal infection that delayed hip surgery. 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, VRE Date of last positivie culture/infection: 02/06/22 VRE MDRO Source:: Urine Past Surgical History: Cholecystectomy, Joint Replacement, Orthopedic Surgery Additional Past Surgical History / Comment(s): brain tumor removed as a teen, cami hip replacement Past Anesthesia/Blood Transfusion Reactions: No Reported Reaction Additional Past Anesthesia/Blood Transfusion Reaction / Comment(s): very severe sleep apnea per patient Past Psychological History: Anxiety, Depression Smoking Status: Former smoker Past Alcohol Use History: None Reported Past Drug Use History: None Reported - Past Family History Brother(s) Family Medical History: Cancer Additional Family Medical History / Comment(s): kidney,liver Medications and Allergies Home Medications Medication Instructions Recorded Confirmed Type PARoxetine HCL [Paxil] 40 mg PO DAILY 06/08/14 08/31/24 History Folic Acid 1 mg PO DAILY 07/12/21 08/31/24 History Tamsulosin [Flomax] 0.4 mg PO DAILY 07/12/21 08/31/24 History lisinopriL 2.5 mg PO DAILY 04/23/23 08/31/24 History Ferrous Sulfate [Iron (65 MG 325 mg PO DAILY 07/06/24 08/31/24 History Elemental)] Atorvastatin [Lipitor] 20 mg PO HS #0 tab 07/26/24 08/31/24 Rx Magnesium Hydroxide [Milk of 2,400 mg PO DAILY PRN ml 07/26/24 08/31/24 Rx Magnesia] Albuterol Nebulized [Ventolin 1.25 mg INHALATION RT-Q8H 08/04/24 08/31/24 History Nebulized (Accuneb)] Naloxone HCl [Narcan] 4 mg NASAL Q5M PRN 08/04/24 08/31/24 History Saccharomyces Boulardii 250 mg PO BID 08/04/24 08/31/24 History [Saccharomycin Df] Sennosides-Docusate Sodium 1 tab PO DAILY 08/04/24 08/31/24 History [Senokot-S] levETIRAcetam [Keppra] 500 mg PO BID 08/04/24 08/31/24 History sitaGLIPtin [Januvia] 100 mg PO DAILY 08/04/24 08/31/24 History Acetaminophen [Tylenol 8 Hour] 650 mg PO Q6H PRN 08/31/24 08/31/24 History HYDROcodone/APAP 10-325MG [[place] 1 tab PO Q6H PRN 08/31/24 08/31/24 History 10-325] Orajel 3x Toothache & 1 applic MM Q6H PRN 08/31/24 08/31/24 History Gum,Mouth,Throat Gel 20-0.26-0.15% Sennosides [Senokot] 17.2 mg PO DAILY PRN 08/31/24 08/31/24 History lamoTRIgine [LaMICtal] 25 mg PO HS 08/31/24 08/31/24 History Allergies Allergy/AdvReac Type Severity Reaction Status Date / Time Penicillins Allergy Rash/Hives Verified 08/31/24 20:11 Physical Exam Vitals: Vital Signs Temp Pulse Resp BP Pulse Ox 09/01/24 00:57 72 18 130/60 96 08/31/24 21:19 92 16 125/55 95 08/31/24 18:51 98.7 F 99 24 124/78 95 Intake and Output 08/31/24 08/31/24 09/01/24 14:59 22:59 06:59 Other: Weight 105.687 kg Results CBC & Chem 7: 08/31/24 19:22 08/31/24 19:22 Labs: Abnormal Lab Results - Last 24 Hours (Table) 08/31/24 08/31/24 Range/Units 19:22 19:22 RBC 3.70 L (4.30-5.90) m/uL Hgb 11.8 L (13.0-17.5) gm/dL Hct 34.5 L (39.0-53.0) % BUN 21 H (9-20) mg/dL Glucose 106 H (74-99) mg/dL
[2024-09-01 03:36] LABS: Appearance,Urine Clear (Clear); Bacteria,Urine Rare /hpf; Bilirubin,Urine Negative (Negative); Blood,Urine Trace (Negative); Color,Urine Colorless; Glucose,Urine (UA) Negative (Negative); Ketones,Urine Negative (Negative); Leukocyte Esterase,Urine Small (Negative); Nitrite,Urine Negative (Negative); PH, Urine 6.5 (5.0-8.0); Protein,Urine Negative (Negative); RBC,Urine 1 /hpf (0-5); Specific Gravity,Urine 1.008 (1.001-1.035); Squamous Epithelial Cell,Urine 1 /hpf (0-4); Urobilinogen,Urine <2.0 mg/dL (<2.0); WBC,Urine 6 /hpf (0-5)
[2024-09-01 03:44] LABS: Amphetamine Screen,Urine Not Detected (NotDetected); Benzodiazepines Screen,Urine Detected (NotDetected); Cocaine Screen,Urine Not Detected (NotDetected); Opiate Screen,Urine Detected (NotDetected); Phencyclidine Screen,Urine Not Detected (NotDetected)
[2024-09-01 03:45] LABS: Barbiturate Screen,Urine Not Detected (NotDetected); Methadone Screen, Urine Not Detected (NotDetected); Oxycodone Screen, Urine Not Detected (NotDetected); Tricyclic Antidepressant,Urine Not Detected (NotDetected); Urn Cannabinoid Scrn Not Detected (NotDetected)
[2024-09-01] MEDS: TAMSULOSIN 0.4 MG CAP.ER.24H PO SCH (08:18)
[2024-09-01] MEDS: levETIRAcetam 500 MG TAB PO SCH (08:18)
[2024-09-01] MEDS: ENOXAPARIN 40 MG/0.4 ML SYRINGE SQ SCH (08:18)
[2024-09-01] MEDS: FERROUS SULFATE 325 MG TAB PO SCH (08:19)
[2024-09-01] MEDS: PANTOPRAZOLE 40 MG TABLET PO SCH (08:19)
[2024-09-01] MEDS: FOLIC ACID 1 MG TAB PO SCH (08:19)
[2024-09-01] MEDS: LORazepam 2 MG/ML INJ IV PRN (12:39)
[2024-09-01] MEDS ORDERED: OLANZapine ODT 5 MG TAB PO PRN (13:38)
--- NOTE | 2024-09-01 13:52 | P.CN ---
Psychiatric Consult - . Consult date: 09/01/24 Consult:: 09/01/24 13:40 IDENTIFYING DATA: This patient is an 84-year-old male with a public guardian, history of depression and anxiety currently staying at [facility] REASON FOR REFERRAL: Psychiatry was consulted for anxiety HISTORY OF PRESENT ILLNESS: The patient presented to the hospital with altered mental status. ED note revealed, "This is an 84-year-old male with recent hospital admission patient is coming in from extended-care facility where he is at rehabilitation for acute inpatient hospital admission a week ago, patient presents today in significant distress anxious shaking and nervous but a poor historian secondary to clinical condition." Patient seen and evaluated in his room however was a poor historian. Patient notably is on Paxil however this was not continued on admission. Patient was unable to give any details on how long he has been on this medication or if it is effective. Patient was fixated on being discharged today and did not know where he was at. Patient was notably agitated and restless during interview, pulling out his IV lines. Patient but he mentally denied any suicidal thoughts or auditory/visual hallucinations. PAST PSYCHIATRIC HISTORY: Patient has a a history of prescient and anxiety per chart review. He is prescribed Paxil 40 mg daily. Patient denies any psychiatric outpatient follow-up. PAST MEDICAL HISTORY: asthma, Cancer, Hyperlipidemia, Hypertension, Osteoarthritis (OA), Sleep Apnea/CPAP/BIPAP. ALLERGIES: as per EMR. CHEMICAL DEPENDENCY HISTORY: as per HPI. FAMILY PSYCHIATRIC/SUBSTANCE USE HISTORY: Denies SOCIAL HISTORY: Patient currently states that [facility]. He has a public guardian MENTAL STATUS EXAM: General Appearance: Patient appears to be stated age is alert, but uncooperative, restless. Patient appears to have fair hygiene and grooming wearing hospital gown with poor eye contact. Behavior: Patient is restless and agitated, requiring frequent redirection Speech: Patient's speech is brief and agitated tone. Mood/Affect: Patient reports their mood is "ok", affect is labile Suicidality/Homicidality: Patient denies having any suicidal or homicidal ideation intent or plan. Perceptions: Patient denies any visual hallucinations and denies any auditory hallucinations Though content/process: There is no evidence of any delusional thought content and thought process is linear. Memory and concentration: AOX1 Judgment and insight: Poor IMPRESSIONS: Delirium History of anxiety History of depression PLAN: -At this time patient DOES NOT meet criteria for inpatient psychiatric admission. -Delirium precautions recommended with patient including - avoiding use of narcotics and [employer] sedatives, limit anticholinergic medications when possible, frequent re-orientation, minimize use of restraints, open window shades during the day and close them at night -Would recommend the following medication changes/additions: Resume Paxil and increase this to 50 mg daily for anxiety, start Zyprexa 5 mg 3 times daily as needed for agitation. Please limit benzodiazepines given patient's confusion and altered mental state -Communicated plan to patient's nurse -Psychiatry will sign off at this time -Please contact with any questions. 09/01/24 13:52
[2024-09-01] MEDS: PARoxetine 20 MG TAB PO SCH (15:10)
[2024-09-01 17:56] LABS: Glucose,Whole Blood 89 mg/dL (70-110)
[2024-09-01 21:01] LABS: Glucose,Whole Blood 116 mg/dL (70-110)
[2024-09-01] MEDS: ATORVASTATIN 20 MG TAB PO SCH (21:49)
[2024-09-01] MEDS: lamoTRIgine 25 MG TAB PO SCH (21:49)
[2024-09-01] MEDS: OLANZapine ODT 5 MG TAB PO SCH (21:49)
[2024-09-02 06:31] LABS: Glucose,Whole Blood 100 mg/dL (70-110)
[2024-09-02 11:10] LABS: Glucose,Whole Blood 111 mg/dL (70-110)
--- NOTE | 2024-09-02 12:49 | P.DS ---
Providers Date of admission: 08/31/24 19:16 Expected date of discharge: 09/02/24 Attending physician: Rohit Terry MD Consults: 08/31/24 19:15 Consult Physician Routine Consulting Provider: Srinivasa Barajas Consult Reason/Comments: anxiety Do you want consulting provider notified?: Yes [facility]: Discharge Diagnosis: Acute encephalopathy, likely metabolic Acute delirium Seizure disorder History of anxiety and depression History of brain tumor as a teenager status post resection Dyslipidemia Hypertension Sleep apnea Hospital Course: 84-year-old man with PMH of hypertension, hyperlipidemia, sleep apnea on CPAP and a history of some form of brain cancer when he was 16 years old presented with acute encephalopathy. WBCs 10.2, Hgb 11.8, hematocrit 34.5, platelet 201; sodium 140, potassium 4.8, BUN 21, creatinine 1.15, AST 29, ALT 18, alkaline phosphatase 93. Toxicology negative for salicylates, negative for acetaminophen, negative for serum alcohol.. EKG done in the ER showed heart rate of 100, sinus tachycardia with first-degree AV block; QTc 417. Psychiatry was consulted. Changes made to his home medications. Encephalopathy has resolved. Patient being discharged back to subacute rehab. Patient seen and examined at bedside. Vital signs reviewed and stable. General: Nontoxic, no distress, appears at stated age Derm: Warm, dry Head: Atraumatic, normocephalic, symmetric Eyes: EOMI, no lid lag, anicteric sclera Mouth: No lip lesion, mucus membranes moist Cardiovascular: S1S2 reg, no murmur Lungs: CTA bilateral, no rhonchi, no rales, no accessory muscle use Abdominal: Soft, nontender to palpation, no guarding, no appreciable organomegaly Ext: No gross muscle atrophy, no edema, no contractures Neuro: CN II-XI grossly intact, no focal neuro deficits Psych: Alert, oriented, appropriate affect A total of 33 minutes of time were spent preparing this complex discharge summary. Patient was discharged on 09/02/2024 at 908. Patient Condition at Discharge: Good Plan - Discharge Summary Discharge Rx Participant: No New Discharge Prescriptions: New PARoxetine [Paxil] 50 mg PO DAILY tab OLANZapine ODT [ZyPREXA Zydis] 5 mg PO HS tab Continue Folic Acid 1 mg PO DAILY Ferrous Sulfate [Iron (65 MG Elemental)] 325 mg PO DAILY Magnesium Hydroxide [Milk of Magnesia] 2,400 mg PO DAILY PRN ml PRN Reason: Constipation Sennosides-Docusate Sodium [Senokot-S] 1 tab PO DAILY Albuterol Nebulized [Ventolin Nebulized (Accuneb)] 1.25 mg INHALATION RT-Q8H Saccharomyces Boulardii [Saccharomycin Df] 250 mg PO BID Orajel 3x Toothache & Gum,Mouth,Throat Gel 20-0.26-0.15% 1 applic MM Q6H PRN PRN Reason: TOOTH AND GUM PAIN lamoTRIgine [LaMICtal] 25 mg PO HS Acetaminophen [Tylenol 8 Hour] 650 mg PO Q6H PRN PRN Reason: Pain Tamsulosin [Flomax] 0.4 mg PO DAILY lisinopriL 2.5 mg PO DAILY Atorvastatin [Lipitor] 20 mg PO HS #0 tab Naloxone HCl [Narcan] 4 mg NASAL Q5M PRN PRN Reason: overdose levETIRAcetam [Keppra] 500 mg PO BID Sennosides [Senokot] 17.2 mg PO DAILY PRN PRN Reason: Constipation Discontinued PARoxetine HCL [Paxil] 40 mg PO DAILY sitaGLIPtin [Januvia] 100 mg PO DAILY HYDROcodone/APAP 10-325MG [[place] 10-325] 1 tab PO Q6H PRN PRN Reason: Pain Scale 7 - 10 Discharge Medication List Folic Acid 1 mg PO DAILY 07/12/21 [History] Tamsulosin [Flomax] 0.4 mg PO DAILY 07/12/21 [History] lisinopriL 2.5 mg PO DAILY 04/23/23 [History] Ferrous Sulfate [Iron (65 MG Elemental)] 325 mg PO DAILY 07/06/24 [History] Atorvastatin [Lipitor] 20 mg PO HS #0 tab 07/26/24 [Rx] Magnesium Hydroxide [Milk of Magnesia] 2,400 mg PO DAILY PRN ml 07/26/24 [Rx] Albuterol Nebulized [Ventolin Nebulized (Accuneb)] 1.25 mg INHALATION RT-Q8H 08/04/24 [History] Naloxone HCl [Narcan] 4 mg NASAL Q5M PRN 08/04/24 [History] Saccharomyces Boulardii [Saccharomycin Df] 250 mg PO BID 08/04/24 [History] Sennosides-Docusate Sodium [Senokot-S] 1 tab PO DAILY 08/04/24 [History] levETIRAcetam [Keppra] 500 mg PO BID 08/04/24 [History] Acetaminophen [Tylenol 8 Hour] 650 mg PO Q6H PRN 08/31/24 [History] Orajel 3x Toothache & Gum,Mouth,Throat Gel 20-0.26-0.15% 1 applic MM Q6H PRN 08/31/24 [History] Sennosides [Senokot] 17.2 mg PO DAILY PRN 08/31/24 [History] lamoTRIgine [LaMICtal] 25 mg PO HS 08/31/24 [History] OLANZapine ODT [ZyPREXA Zydis] 5 mg PO HS tab 09/02/24 [Rx] PARoxetine [Paxil] 50 mg PO DAILY tab 09/02/24 [Rx] Follow up Appointment(s)/Referral(s): Isela Restrepo, [NON-STAFF] - As Needed Jimmy Michele DO [Primary Care Provider] - 1-2 days ([facility] please call for follow-up appointment.) Patient Instructions/Handouts: Encephalopathy (DC) Activity/Diet/Wound Care/Special Instructions: Please see your PCP. Discharge Disposition: TRANSFER TO SNF/ECF
[2024-09-02 16:19] LABS: Glucose,Whole Blood 92 mg/dL (70-110)
[2024-09-02 20:38] LABS: Glucose,Whole Blood 88 mg/dL (70-110)
[2024-09-03 06:30] LABS: Glucose,Whole Blood 101 mg/dL (70-110)
[2024-09-03 11:22] LABS: Glucose,Whole Blood 103 mg/dL (70-110)
--- NOTE | 2024-09-03 13:51 | P.PN ---
Subjective Progress Note Date: 09/03/24 Hospital Course: 84-year-old man with PMH of hypertension, hyperlipidemia, sleep apnea on CPAP and a history of some form of brain cancer when he was 16 years old presented with acute encephalopathy. WBCs 10.2, Hgb 11.8, hematocrit 34.5, platelet 201; sodium 140, potassium 4.8, BUN 21, creatinine 1.15, AST 29, ALT 18, alkaline phosphatase 93. Toxicology negative for salicylates, negative for acetaminophen, negative for serum alcohol.. EKG done in the ER showed heart rate of 100, sinus tachycardia with first-degree AV block; QTc 417. Psychiatry was consulted. Changes made to his home medications. Encephalopathy has resolved. Patient to be discharged back to subacute rehab. Pending Auth. Subjective: Patient seen and examined at bedside. No acute events overnight. Pertinent positives and negatives as discussed above, a complete review of systems was performed and all other systems are negative. Vitals Signs Reviewed. General: Nontoxic, no distress, appears at stated age Derm: Warm, dry Head: Atraumatic, normocephalic, symmetric Eyes: EOMI, no lid lag, anicteric sclera Mouth: No lip lesion, mucus membranes moist Cardiovascular: S1S2 reg, no murmur Lungs: CTA bilateral, no rhonchi, no rales, no accessory muscle use Abdominal: Soft, nontender to palpation, no guarding, no appreciable organomegaly Ext: No gross muscle atrophy, no edema, no contractures Neuro: CN II-XI grossly intact, no focal neuro deficits Psych: Alert, oriented, appropriate affect Data Reviewed Today: Pertinent Labs: Blood sugars range between 88-1 03 Imaging: No new imaging Assessment and Plan: Active: Acute encephalopathy, likely metabolic Acute delirium Seizure disorder History of anxiety and depression History of brain tumor as a teenager status post resection -Mental status back to baseline. -Psychiatry signed off -Continue Lamictal 25 nightly, Keppra 500 twice daily, Zyprexa 5 nightly while inpatient, paroxetine 50 daily Chronic: Dyslipidemia Hypertension BPH Sleep apnea DVT ppx: Lovenox Code status: Full code Anticipated discharge place: Subacute rehab Anticipated discharge time: Pending Auth Objective - Vital Signs Vital signs: Vital Signs Temp 98.3 F 09/03/24 07:32 Pulse 72 09/03/24 07:32 Resp 18 09/03/24 07:32 BP 121/69 09/03/24 07:32 Pulse Ox 97 09/03/24 07:32 FiO2 Intake & Output 09/02/24 09/03/24 09/03/24 18:59 06:59 18:59 Output Total 500 600 400 Balance -500 -600 -400 Output: Urine 500 600 400 Straight 400 Other: Voiding Method External Catheter External Catheter External Catheter # Bowel Movements 1 1 - Labs CBC & Chem 7: 08/31/24 19:22 08/31/24 19:22
[2024-09-03 17:45] LABS: Glucose,Whole Blood 86 mg/dL (70-110)
[2024-09-03 20:43] LABS: Glucose,Whole Blood 111 mg/dL (70-110)
[2024-09-04 06:32] LABS: Glucose,Whole Blood 111 mg/dL (70-110)
[2024-09-04 12:07] LABS: Glucose,Whole Blood 114 mg/dL (70-110)
--- NOTE | 2024-09-04 13:20 | P.PN ---
Subjective Progress Note Date: 09/04/24 Hospital Course: 84-year-old man with PMH of hypertension, hyperlipidemia, sleep apnea on CPAP and a history of some form of brain cancer when he was 16 years old presented with acute encephalopathy. WBCs 10.2, Hgb 11.8, hematocrit 34.5, platelet 201; sodium 140, potassium 4.8, BUN 21, creatinine 1.15, AST 29, ALT 18, alkaline phosphatase 93. Toxicology negative for salicylates, negative for acetaminophen, negative for serum alcohol.. EKG done in the ER showed heart rate of 100, sinus tachycardia with first-degree AV block; QTc 417. Psychiatry was consulted. Changes made to his home medications. Encephalopathy has resolved. Patient to be discharged back to subacute rehab. Pending Auth. Subjective: Patient seen and examined at bedside. No acute events overnight. Pertinent positives and negatives as discussed above, a complete review of systems was performed and all other systems are negative. Vitals Signs Reviewed. General: Nontoxic, no distress, appears at stated age Derm: Warm, dry Head: Atraumatic, normocephalic, symmetric Eyes: EOMI, no lid lag, anicteric sclera Mouth: No lip lesion, mucus membranes moist Cardiovascular: S1S2 reg, no murmur Lungs: CTA bilateral, no rhonchi, no rales, no accessory muscle use Abdominal: Soft, nontender to palpation, no guarding, no appreciable organomegaly Ext: No gross muscle atrophy, no edema, no contractures Neuro: CN II-XI grossly intact, no focal neuro deficits Psych: Alert, oriented, appropriate affect Data Reviewed Today: Pertinent Labs: Blood sugars range between 86-1 14 Imaging: No new imaging Assessment and Plan: Active: Acute encephalopathy, likely metabolic Acute delirium Seizure disorder History of anxiety and depression History of brain tumor as a teenager status post resection -Mental status back to baseline. -Psychiatry signed off -Continue Lamictal 25 nightly, Keppra 500 twice daily, Zyprexa 5 nightly while inpatient, paroxetine 50 daily Chronic: Dyslipidemia Hypertension BPH Sleep apnea DVT ppx: Lovenox Code status: Full code Anticipated discharge place: Subacute rehab Anticipated discharge time: Pending Auth Objective - Vital Signs Vital signs: Vital Signs Temp 98.1 F 09/04/24 06:56 Pulse 54 L 09/04/24 06:56 Resp 16 09/04/24 06:56 BP 102/58 09/04/24 06:56 Pulse Ox 99 09/04/24 08:54 FiO2 Intake & Output 09/03/24 09/04/24 09/04/24 18:59 06:59 18:59 Intake Total 400 Output Total 525 400 Balance -125 -400 Intake: Oral 400 Output: Urine 525 400 Straight 400 400 Other: Voiding Method External Catheter External Catheter Incontinent # Bowel Movements 2 - Labs CBC & Chem 7: 08/31/24 19:22 08/31/24 19:22 Labs: Abnormal Lab Results - Last 24 Hours (Table) 09/03/24 09/04/24 09/04/24 Range/Units 20:42 06:31 12:05 POC Glucose (mg/dL) 111 H 111 H 114 H (70-110) mg/dL
[2024-09-04] MEDS: OLANZapine 10 MG VIAL IM PRN (15:29)
[2024-09-04 16:42] LABS: African American GFR (CKD) 65 (>60 ml/min/1.73 sqM); Anion Gap 8 mmol/L; Blood Urea Nitrogen 19 mg/dL (9-20); Calcium 9.3 mg/dL (8.4-10.2); Carbon Dioxide 25 mmol/L (22-30); Chloride 110 mmol/L (98-107); Glucose 140 mg/dL (74-99); Non-African American GFR(CKD) 56 (>60 ml/min/1.73 sqM); Sodium 143 mmol/L (137-145)
[2024-09-04 17:04] LABS: Glucose,Whole Blood 130 mg/dL (70-110)
[2024-09-04 21:22] LABS: Glucose,Whole Blood 117 mg/dL (70-110)
[2024-09-05 06:11] LABS: Glucose,Whole Blood 113 mg/dL (70-110)
[2024-09-05 12:01] LABS: Glucose,Whole Blood 125 mg/dL (70-110)
--- NOTE | 2024-09-05 13:32 | P.PN ---
Subjective Progress Note Date: 09/05/24 Hospital Course: 84-year-old man with PMH of hypertension, hyperlipidemia, sleep apnea on CPAP and a history of some form of brain cancer when he was 16 years old presented with acute encephalopathy. WBCs 10.2, Hgb 11.8, hematocrit 34.5, platelet 201; sodium 140, potassium 4.8, BUN 21, creatinine 1.15, AST 29, ALT 18, alkaline phosphatase 93. Toxicology negative for salicylates, negative for acetaminophen, negative for serum alcohol.. EKG done in the ER showed heart rate of 100, sinus tachycardia with first-degree AV block; QTc 417. Psychiatry was consulted. Changes made to his home medications. Encephalopathy has resolved. Patient to be discharged back to subacute rehab. Pending Auth. Subjective: Patient seen and examined at bedside. No acute events overnight. Having urinar y retention. Ko catheter placed Pertinent positives and negatives as discussed above, a complete review of systems was performed and all other systems are negative. Vitals Signs Reviewed. General: Nontoxic, no distress, appears at stated age Derm: Warm, dry Head: Atraumatic, normocephalic, symmetric Eyes: EOMI, no lid lag, anicteric sclera Mouth: No lip lesion, mucus membranes moist Cardiovascular: S1S2 reg, no murmur Lungs: CTA bilateral, no rhonchi, no rales, no accessory muscle use Abdominal: Soft, nontender to palpation, no guarding, no appreciable organomegaly Ext: No gross muscle atrophy, no edema, no contractures Neuro: CN II-XI grossly intact, no focal neuro deficits Psych: Alert, oriented, appropriate affect Data Reviewed Today: Pertinent Labs: Blood sugars range between 1 13-1 25 Imaging: No new imaging Assessment and Plan: Active: Acute encephalopathy, likely metabolic Acute delirium, resolved Seizure disorder History of anxiety and depression History of brain tumor as a teenager status post resection -Mental status back to baseline. -Psychiatry signed off -Continue Lamictal 25 nightly, Keppra 500 twice daily, Zyprexa 5 nightly while inpatient, paroxetine 50 daily Acute urinary retention -Ko catheter placed Chronic: Dyslipidemia Hypertension BPH Sleep apnea DVT ppx: Lovenox Code status: Full code Anticipated discharge place: Subacute rehab Anticipated discharge time: Pending Auth Objective - Vital Signs Vital signs: Vital Signs Temp 98.1 F 09/05/24 06:48 Pulse 70 09/05/24 06:48 Resp 16 09/05/24 06:48 BP 96/60 09/05/24 06:48 Pulse Ox 92 L 09/05/24 06:48 FiO2 Intake & Output 09/04/24 09/05/24 09/05/24 18:59 06:59 18:59 Intake Total 200 Output Total 310 Balance -310 200 Intake: Oral 200 Output: Urine 310 Post Void Residual 0 Other: Voiding Method Incontinent Indwelling Catheter - Labs CBC & Chem 7: 08/31/24 19:22 09/04/24 15:09 Labs: Abnormal Lab Results - Last 24 Hours (Table) 09/04/24 09/04/24 09/04/24 Range/Units 15:09 17:03 21:19 Chloride 110 H (98-107) mmol/L Glucose 140 H (74-99) mg/dL POC Glucose (mg/dL) 130 H 117 H (70-110) mg/dL 09/05/24 09/05/24 Range/Units 06:09 12:00 Chloride (98-107) mmol/L Glucose (74-99) mg/dL POC Glucose (mg/dL) 113 H 125 H (70-110) mg/dL
[2024-09-05 16:33] LABS: Glucose,Whole Blood 96 mg/dL (70-110)
[2024-09-05 20:41] LABS: Glucose,Whole Blood 130 mg/dL (70-110)
[2024-09-06 06:08] LABS: Glucose,Whole Blood 117 mg/dL (70-110)
[2024-09-06 08:08] VITALS: BP 119/73; PULSE 84; RESP 17; TEMP 97.6
[2024-09-06 12:16] LABS: Glucose,Whole Blood 136 mg/dL (70-110)
--- NOTE | 2024-09-06 12:17 | P.DS ---
Providers Date of admission: 08/31/24 19:16 Expected date of discharge: 09/06/24 Attending physician: Rohit Terry MD Consults: 08/31/24 19:15 Consult Physician Routine Consulting Provider: Srinivasa Barajas Consult Reason/Comments: anxiety Do you want consulting provider notified?: Yes [facility]: Discharge Diagnosis: Acute encephalopathy, likely metabolic Acute delirium Seizure disorder History of anxiety and depression History of brain tumor as a teenager status post resection Dyslipidemia Hypertension Sleep apnea Acute urinary retention Hospital Course: 84-year-old man with PMH of hypertension, hyperlipidemia, sleep apnea on CPAP and a history of some form of brain cancer when he was 16 years old presented with acute encephalopathy. WBCs 10.2, Hgb 11.8, hematocrit 34.5, platelet 201; sodium 140, potassium 4.8, BUN 21, creatinine 1.15, AST 29, ALT 18, alkaline phosphatase 93. Toxicology negative for salicylates, negative for acetaminophen, negative for serum alcohol.. EKG done in the ER showed heart rate of 100, sinus tachycardia with first-degree AV block; QTc 417. Psychiatry was consulted. Changes made to his home medications. Encephalopathy has resolved. Patient being discharged back to subacute rehab. Patient seen and examined at bedside. Vital signs reviewed and stable. General: Nontoxic, no distress, appears at stated age Derm: Warm, dry Head: Atraumatic, normocephalic, symmetric Eyes: EOMI, no lid lag, anicteric sclera Mouth: No lip lesion, mucus membranes moist Cardiovascular: S1S2 reg, no murmur Lungs: CTA bilateral, no rhonchi, no rales, no accessory muscle use Abdominal: Soft, nontender to palpation, no guarding, no appreciable organomegaly Ext: No gross muscle atrophy, no edema, no contractures Neuro: CN II-XI grossly intact, no focal neuro deficits Psych: Alert, oriented, appropriate affect A total of 33 minutes of time were spent preparing this complex discharge s veritomilagro. Patient was discharged on 09/06/2024 at 1007. Patient Condition at Discharge: Stable Plan - Discharge Summary Discharge Rx Participant: No New Discharge Prescriptions: New PARoxetine [Paxil] 50 mg PO DAILY tab Continue Folic Acid 1 mg PO DAILY Ferrous Sulfate [Iron (65 MG Elemental)] 325 mg PO DAILY Magnesium Hydroxide [Milk of Magnesia] 2,400 mg PO DAILY PRN ml PRN Reason: Constipation Sennosides-Docusate Sodium [Senokot-S] 1 tab PO DAILY Albuterol Nebulized [Ventolin Nebulized (Accuneb)] 1.25 mg INHALATION RT-Q8H Saccharomyces Boulardii [Saccharomycin Df] 250 mg PO BID Orajel 3x Toothache & Gum,Mouth,Throat Gel 20-0.26-0.15% 1 applic MM Q6H PRN PRN Reason: TOOTH AND GUM PAIN lamoTRIgine [LaMICtal] 25 mg PO HS Acetaminophen [Tylenol 8 Hour] 650 mg PO Q6H PRN PRN Reason: Pain Tamsulosin [Flomax] 0.4 mg PO DAILY lisinopriL 2.5 mg PO DAILY Atorvastatin [Lipitor] 20 mg PO HS #0 tab Naloxone HCl [Narcan] 4 mg NASAL Q5M PRN PRN Reason: overdose levETIRAcetam [Keppra] 500 mg PO BID Sennosides [Senokot] 17.2 mg PO DAILY PRN PRN Reason: Constipation Discontinued PARoxetine HCL [Paxil] 40 mg PO DAILY sitaGLIPtin [Januvia] 100 mg PO DAILY HYDROcodone/APAP 10-325MG [Xenia 10-325] 1 tab PO Q6H PRN PRN Reason: Pain Scale 7 - 10 Discharge Medication List Folic Acid 1 mg PO DAILY 07/12/21 [History] Tamsulosin [Flomax] 0.4 mg PO DAILY 07/12/21 [History] lisinopriL 2.5 mg PO DAILY 04/23/23 [History] Ferrous Sulfate [Iron (65 MG Elemental)] 325 mg PO DAILY 07/06/24 [History] Atorvastatin [Lipitor] 20 mg PO HS #0 tab 07/26/24 [Rx] Magnesium Hydroxide [Milk of Magnesia] 2,400 mg PO DAILY PRN ml 07/26/24 [Rx] Albuterol Nebulized [Ventolin Nebulized (Accuneb)] 1.25 mg INHALATION RT-Q8H 08/04/24 [History] Naloxone HCl [Narcan] 4 mg NASAL Q5M PRN 08/04/24 [History] Saccharomyces Boulardii [Saccharomycin Df] 250 mg PO BID 08/04/24 [History] Sennosides-Docusate Sodium [Senokot-S] 1 tab PO DAILY 08/04/24 [History] levETIRAcetam [Keppra] 500 mg PO BID 08/04/24 [History] Acetaminophen [Tylenol 8 Hour] 650 mg PO Q6H PRN 08/31/24 [History] Orajel 3x Toothache & Gum,Mouth,Throat Gel 20-0.26-0.15% 1 applic MM Q6H PRN 08/31/24 [History] Sennosides [Senokot] 17.2 mg PO DAILY PRN 08/31/24 [History] lamoTRIgine [LaMICtal] 25 mg PO HS 08/31/24 [History] PARoxetine [Paxil] 50 mg PO DAILY tab 09/02/24 [Rx] Follow up Appointment(s)/Referral(s): Isela Restrepo, [NON-STAFF] - As Needed Jimmy Michele DO [Primary Care Provider] - 1-2 days ([facility] please call for follow-up appointment.) Patient Instructions/Handouts: Encephalopathy (DC) Activity/Diet/Wound Care/Special Instructions: Please see your PCP. Discharge Disposition: TRANSFER TO SNF/ECF
== END 2024-09-06 14:23 ==
LOC: EC 18:45 → 4SSUR 19:16
PROVIDERS: ADMIT Internal Medicine; ATTEND Internal Medicine
DX: R41.82 Altered mental status, unspecified (principal); G93.40 Encephalopathy, unspecified; G40.909 Epilepsy, unspecified, not intractable, without status epilepticus; F05 Delirium due to known physiological condition; F32.A Depression, unspecified; E78.5 Hyperlipidemia, unspecified; I10 Essential (primary) hypertension; G47.30 Sleep apnea, unspecified; I44.0 Atrioventricular block, first degree; R00.0 Tachycardia, unspecified; R33.8 Other retention of urine; F41.9 Anxiety disorder, unspecified; J45.909 Unspecified asthma, uncomplicated; M19.90 Unspecified osteoarthritis, unspecified site; Z86.011 Personal history of benign neoplasm of the brain; R53.1 Weakness; Z79.899 Other long term (current) drug therapy; Z96.649 Presence of unspecified artificial hip joint; Z87.891 Personal history of nicotine dependence; Z79.84 Long term (current) use of oral hypoglycemic drugs; Z88.0 Allergy status to penicillin
CPT/HCPCS: 96361 ×4; 96372 ×6; 96376; 96374; 99285; 51798; 36415; 94760; 93005; 97162; 97166; 80053; 80048; 82140; 85025; 81001; 80306; 80143; 80179; G0378 ×7; G0480; J2060 ×2; J1650 ×6; 80320

== ENCOUNTER 2024-10-23 21:12 | Emergency (ER) | payer MEDICARE, OTHER ==
[2024-10-23] MEDS: ZINC OXIDE PASTE (Z-GUARD) 1 APPLIC TOPICAL ONE (23:23)
--- NOTE | 2024-10-23 23:27 | ED ---
Psych HPI - General Chief Complaint: Psychiatric Symptoms Stated Complaint: Mental Health Time Seen by Provider: 10/23/24 21:16 Source: EMS Mode of arrival: EMS Limitations: no limitations - History of Present Illness Initial Comments: This patient is an 84-year-old man who was sent here from his long-term care facility to have psychiatric evaluation. The patient has documentation accompanying him stating that he had made threatening statements and he had also made suicidal statements including that he would shoot himself. The patient does not have access to firearms. The patient states that he does have a history of previous closed head injury. When I interviewed the patient, he states that he does not have any homicidal or suicidal intent. He does admit that he got angry with staff. He states that someone had stepped on his foot. MD Complaint: other -: unknown Associated Psychiatric Symptoms: other Quality: intermittent Improves With: none Worsens With: none - Related Data Home Medications Medication Instructions Recorded Confirmed Folic Acid 1 mg PO DAILY 07/12/21 08/31/24 Tamsulosin [Flomax] 0.4 mg PO DAILY 07/12/21 08/31/24 lisinopriL 2.5 mg PO DAILY 04/23/23 08/31/24 Ferrous Sulfate [Iron (65 MG 325 mg PO DAILY 07/06/24 08/31/24 Elemental)] Albuterol Nebulized [Ventolin 1.25 mg INHALATION RT-Q8H 08/04/24 08/31/24 Nebulized (Accuneb)] Naloxone HCl [Narcan] 4 mg NASAL Q5M PRN 08/04/24 08/31/24 Saccharomyces Boulardii 250 mg PO BID 08/04/24 08/31/24 [Saccharomycin Df] Sennosides-Docusate Sodium 1 tab PO DAILY 08/04/24 08/31/24 [Senokot-S] levETIRAcetam [Keppra] 500 mg PO BID 08/04/24 08/31/24 Acetaminophen [Tylenol 8 Hour] 650 mg PO Q6H PRN 08/31/24 08/31/24 Orajel 3x Toothache & 1 applic MM Q6H PRN 08/31/24 08/31/24 Gum,Mouth,Throat Gel 20-0.26-0.15% Sennosides [Senokot] 17.2 mg PO DAILY PRN 08/31/24 08/31/24 lamoTRIgine [LaMICtal] 25 mg PO HS 08/31/24 08/31/24 Previous Rx's Medication Instructions Recorded Atorvastatin [Lipitor] 20 mg PO HS #0 tab 07/26/24 Magnesium Hydroxide [Milk of 2,400 mg PO DAILY PRN ml 07/26/24 Magnesia] PARoxetine [Paxil] 50 mg PO DAILY tab 09/02/24 Allergies Allergy/AdvReac Type Severity Reaction Status Date / Time Penicillins Allergy Rash/Hives Verified 10/23/24 21:33 Review of Systems ROS Statement: Those systems with pertinent positive or pertinent negative responses have been documented in the HPI. ROS Other: All systems not noted in ROS Statement are negative. Constitutional: Denies: fever, chills Respiratory: Denies: cough, dyspnea Cardiovascular: Denies: chest pain, palpitations, edema Gastrointestinal: Denies: abdominal pain, vomiting, diarrhea Genitourinary: Denies: dysuria, hematuria Skin: Denies: rash Neurological: Denies: headache, weakness Psychiatric: Reports: homicidal thoughts, suicidal thoughts, other Past Medical History Past Medical History: Asthma, Cancer, Hyperlipidemia, Hypertension, Osteoarthritis (OA), Sleep Apnea/CPAP/BIPAP Additional Past Medical History / Comment(s): cpap, fell in october 2013 and fractured left hip, periodontal infection that delayed hip surgery. 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, VRE Date of last positivie culture/infection: 02/06/22 VRE MDRO Source:: Urine Past Surgical History: Cholecystectomy, Joint Replacement, Orthopedic Surgery Additional Past Surgical History / Comment(s): brain tumor removed as a teen, cami hip replacement Past Anesthesia/Blood Transfusion Reactions: No Reported Reaction Additional Past Anesthesia/Blood Transfusion Reaction / Comment(s): very severe sleep apnea per patient Past Psychological History: Anxiety, Depression Smoking Status: Former smoker Past Alcohol Use History: None Reported Past Drug Use History: None Reported - Past Family History Brother(s) Family Medical History: Cancer Additional Family Medical History / Comment(s): kidney,liver General Exam General appearance: alert, in no apparent distress Head exam: Present: atraumatic, normocephalic Eye exam: Present: normal appearance. Absent: scleral icterus, conjunctival injection Neck exam: Present: normal inspection Respiratory exam: Present: normal lung sounds bilaterally. Absent: respiratory distress, wheezes, rales, rhonchi, stridor, accessory muscle use Cardiovascular Exam: Present: regular rate, normal rhythm, normal heart sounds. Absent: systolic murmur, diastolic murmur, rubs, gallop GI/Abdominal exam: Present: soft Extremities exam: Present: normal inspection, normal capillary refill. Absent: pedal edema, calf tenderness Back exam: Present: normal inspection. Absent: CVA tenderness (R), CVA tenderness (L) Neurological exam: Present: alert Psychiatric exam: Present: other (Patient is very emotionally labile, becoming tearful when he discusses family.). Absent: depressed, flat affect, manic, homicidal ideation, suicidal ideation Skin exam: Present: warm, dry, intact, normal color. Absent: rash Course Vital Signs 10/23/24 10/24/24 21:19 00:36 Temperature 97.7 F 97.8 F Pulse Rate 98 72 Respiratory 20 16 Rate Blood Pressure 131/68 117/56 O2 Sat by Pulse 98 96 Oximetry Medical Decision Making - Medical Decision Making Was pt. sent in by a medical professional or institution (, PA, MOTHER'S HELPER, urgent care, hospital, or jail...) When possible be specific @ -Sent from jail to have further evaluation Did you speak to anyone other than the patient for history (EMS, parent, family, police, friend...)? What history was obtained from this source @ -[No] Did you review nursing and triage notes (agree or disagree)? Why? @ -[I reviewed and agree with nursing and triage notes] Were old charts reviewed (outside hosp., previous admission, EMS record, old EKG, old radiological studies, urgent care reports/EKG's, jail records)? Report findings @ -[No old charts were reviewed] Differential Diagnosis (chest pain, altered mental status, abdominal pain women, abdominal pain men, vaginal bleeding, weakness, fever, dyspnea, syncope, headache, dizziness, GI bleed, back pain, seizure, CVA, palpatations, mental health, musculoskeletal)? @ -[Differential Mental Health Depression, anxiety, bipolar, psychosis, schizophrenia, borderline personality, situational depression, adjustment disorder, behavioral disorder, brain tumor, malingering, substance abuse, encephalopathy, medication reaction, dementia, hypothyroidism, degenerative neurologic disorder, lupus.... This is not meant to be all-inclusive list EKG interpreted by me (3pts min.). @ -[As above] X-rays interpreted by me (1pt min.). @ -[None done] CT interpreted by me (1pt min.). @ -[None done] U/S interpreted by me (1pt. min.). @ -[None done] What testing was considered but not performed or refused? (CT, X-rays, U/S, labs)? Why? @ -[None] What meds were considered but not given or refused? Why? @ -[None] Did you discuss the management of the patient with other professionals (professionals i.e. , PA, MOTHER'S HELPER, lab, RT, psych nurse, social services technician, beekeeper farmer, teacher, chief credit officer, rn case management)? Give summary @ -[Case discussed with EPS personnel Was smoking cessation discussed for >3mins.? @ -[No] Was critical care preformed (if so, how long)? @ -[No] Were there social determinants of health that impacted care today? How? (Homelessness, low income, unemployed, alcoholism, drug addiction, transportation, low edu. Level, literacy, decrease access to med. care, [facility], rehab)? @ -[No] Was there de-escalation of care discussed even if they declined (Discuss DNR or withdrawal of care, Hospice)? DNR status @ -[No] What co-morbidities impacted this encounter? (DM, HTN, Smoking, COPD, CAD, Cancer, CVA, ARF, Chemo, Hep., AIDS, mental health diagnosis, sleep apnea, morbid obesity)? @ -[None] Was patient admitted / discharged? Hospital course, mention meds given and route, prescriptions, significant lab abnormalities, going to OR and other pertinent info. @ -[Patient is an 84-year-old man here for psychiatric evaluation. His symptoms have resolved. He is seen by the emergency psychiatric service and cleared to have further care as outpatient. Undiagnosed new problem with uncertain prognosis? @ -[No] Drug Therapy requiring intensive monitoring for toxicity (Heparin, Nitro, Insulin, Cardizem)? @ -[No] Were any procedures done? @ -[No] Diagnosis/symptom? @ -[Mood disorder Acute, or Chronic, or Acute on Chronic? @ -[Acute Uncomplicated (without systemic symptoms) or Complicated (systemic symptoms)? @ -[unComplicated Side effects of treatment? @ -[No] Exacerbation, Progression, or Severe Exacerbation? @ -[No] Poses a threat to life or bodily function? How? (Chest pain, [place], [place], pneumonia, PE, COPD, DKA, ARF, appy, cholecystitis, CVA, Diverticulitis, Homicidal, Suicidal, threat to staff... and all critical care pts) @ -[No] All treatments are based on ideal body weight as in ED triage Disposition Clinical Impression: Mood disorder Disposition: HOME SELF-CARE Condition: Fair Instructions (If sedation given, give patient instructions): Mood Disorders (ED) Is patient prescribed a controlled substance at d/c from ED?: No Referrals: Jimmy Michele DO [Primary Care Provider] - 1-2 days
[2024-10-24 00:39] VITALS: BP 117/56; PULSE 72; RESP 16; TEMP 97.8
== END 2024-10-24 00:39 | disposition home or self-care (01) ==
LOC: EC 21:12
DX: F39 Unspecified mood [affective] disorder (principal); Z87.891 Personal history of nicotine dependence; Z88.0 Allergy status to penicillin
CPT/HCPCS: 82075; 99284

== ENCOUNTER 2025-01-14 16:47 | Emergency (ER) | payer MEDICARE, OTHER ==
[2025-01-14 17:08] LABS: Glucose,Whole Blood 127 mg/dL (70-110)
[2025-01-14 17:12] LABS: Basophils % (A) 1 %; Eosinophils # (A) 0.4 k/uL (0-0.7); Eosinophils % (A) 4 %; HCT 39.4 % (39.0-53.0); HGB 13.3 gm/dL (13.0-17.5); Lymphocytes # (A) 3.1 k/uL (1.0-4.8); Lymphocytes % (A) 32 %; MCH 31.5 pg (25.0-35.0); MCHC 33.9 g/dL (31.0-37.0); Mean Platelet Volume 6.9; Monocytes # (A) 0.5 k/uL (0-1.0); Monocytes % (A) 5 %; Neutrophils # (A) 5.4 k/uL (1.3-7.7); Neutrophils % (A) 57 %; Platelet Count 214 k/uL (150-450); RBC 4.23 m/uL (4.30-5.90); RDW 13.4 % (11.5-15.5); WBC 9.6 k/uL (3.8-10.6)
[2025-01-14 17:20] LABS: Prothrombin Time 10.9 sec (10.0-12.5)
[2025-01-14] MEDS: levETIRAcetam 500 MG TAB PO STA (17:20)
[2025-01-14] MEDS: SODIUM CHLORIDE 0.9% 500 ML 500 ML IV ONE (17:20)
[2025-01-14 17:29] LABS: ALT 20 U/L (4-49); African American GFR (CKD) 65 (>60 ml/min/1.73 sqM); Albumin 4.5 g/dL (3.5-5.0); Alcohol <10 mg/dL; Anion Gap 13 mmol/L; Blood Urea Nitrogen 41 mg/dL (9-20); Calcium 9.6 mg/dL (8.4-10.2); Carbon Dioxide 21 mmol/L (22-30); Chloride 107 mmol/L (98-107); Glucose 135 mg/dL (74-99); Non-African American GFR(CKD) 57 (>60 ml/min/1.73 sqM); Sodium 141 mmol/L (137-145); Total Bilirubin 0.7 mg/dL (0.2-1.3); Total Protein 8.1 g/dL (6.3-8.2)
[2025-01-14 17:34] LABS: AST 30 U/L (17-59); Alkaline Phosphatase 67 U/L (38-126); Potassium 4.9 mmol/L (3.5-5.1)
--- NOTE | 2025-01-14 17:57 | XR ---
EXAMINATION TYPE: XR chest 2V DATE OF EXAM: 01/14/2025 5:48 PM COMPARISON: 08/04/2024 CLINICAL INDICATION: Male, 84 years old with history of altered mental status, TECHNIQUE: XR chest 2V view(s) obtained. FINDINGS: The heart size is normal. The pulmonary vasculature is normal. The lungs are clear. Prior midthoracic fixation is evident. IMPRESSION: 1. No acute pulmonary process. [facility], , 01/14/2025 5:55 PM
--- NOTE | 2025-01-14 18:23 | ED ---
General Adult HPI - General Chief complaint: Psychiatric Symptoms Stated complaint: Psych evaluation Time Seen by Provider: 01/14/25 16:53 Source: patient, EMS, RN notes reviewed, old records reviewed Mode of arrival: EMS Limitations: no limitations - History of Present Illness Initial comments: Patient is a 84-year-old male who presents by EMS of a concern for delusions as well as a suicidal statement made to police. He was not petition but was brought in by EMS. He is cooperative. Has a history of psychiatric illness, hypertension, hyperlipidemia, closed head injury. Patient states that he was recently out of the facility but discharged home. Unknown if he has been taking his medications. States he was trying to get into his safe at home which has a lot of money in it. He states to me somewhere in the 20,000's of dollars. He told EMS a different amount. He told police a different amount. States he could not get into it and made a comment to police that if he cannot get into it that would support a blue big. Had some passive suicidal statements that he does not confirm or deny. Denies any homicidal ideations, attempts, plans. Denies hallucinations to me. Denies any drug use. Patient was also having some delusions stating he had millions of dollars on an offshore bank account that he is not touching. Denies any recent injuries. Presents for further evaluation at this time. - Related Data Home Medications Medication Instructions Recorded Confirmed Folic Acid 1 mg PO DAILY 07/12/21 01/14/25 Tamsulosin [Flomax] 0.4 mg PO DAILY 07/12/21 01/14/25 lisinopriL 2.5 mg PO DAILY 04/23/23 01/14/25 Ferrous Sulfate [Iron (65 MG 325 mg PO DAILY 07/06/24 01/14/25 Elemental)] Naloxone HCl [Narcan] 4 mg NASAL ONCE PRN 08/04/24 01/14/25 levETIRAcetam [Keppra] 500 mg PO BID 08/04/24 01/14/25 lamoTRIgine [LaMICtal] 25 mg PO BID 08/31/24 01/14/25 Acetaminophen [Tylenol] 650 mg PO Q6H PRN 01/14/25 01/14/25 Escitalopram [Lexapro] 5 mg PO DAILY 01/14/25 01/14/25 PARoxetine HCL 40 mg PO DAILY 01/14/25 01/14/25 traMADol HCL 50 mg PO Q12H PRN 01/14/25 01/14/25 Allergies Allergy/AdvReac Type Severity Reaction Status Date / Time Penicillins Allergy Rash/Hives Verified 01/14/25 19:07 Review of Systems ROS Statement: Those systems with pertinent positive or pertinent negative responses have been documented in the HPI. Review of Systems: CONST: Denies fever EYES: Denies blurry vision ENT: Denies nasal congestion C/V: Denies Chest pain RESP: Denies shortness of breath GI: Denies abdominal pain : Denies dysuria SKIN: Denies rash. MSK: Denies joint pain. NEURO: Denies headache ROS Other: All systems not noted in ROS Statement are negative. Past Medical History Past Medical History: Asthma, Cancer, Hyperlipidemia, Hypertension, Osteoarthritis (OA), Sleep Apnea/CPAP/BIPAP Additional Past Medical History / Comment(s): cpap, fell in october 2013 and fractured left hip, periodontal infection that delayed hip surgery. 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, VRE Date of last positivie culture/infection: 02/06/22 VRE MDRO Source:: Urine Past Surgical History: Cholecystectomy, Joint Replacement, Orthopedic Surgery Additional Past Surgical History / Comment(s): brain tumor removed as a teen, cami hip replacement Past Anesthesia/Blood Transfusion Reactions: No Reported Reaction Additional Past Anesthesia/Blood Transfusion Reaction / Comment(s): very severe sleep apnea per patient Past Psychological History: Anxiety, Depression Smoking Status: Former smoker Past Alcohol Use History: None Reported Past Drug Use History: None Reported - Past Family History Brother(s) Family Medical History: Cancer Additional Family Medical History / Comment(s): kidney,liver General Exam - General Exam Comments Initial Comments: General: Appears in no acute distress. HEAD: Normal with no signs of head trauma. EYES: PERRLA, EOMI, conjunctiva normal, no discharge. ENT: Hearing grossly intact, normal oropharynx. RESPIRATORY: Clear breath sounds bilaterally. No wheezes, rales, or rhonchi. C/V: Regular rate and rhythm. S1 and S2 auscultated, no edema, peripheral pulses 2+ and intact throughout ABD: Abd is soft, nontender, nondistended EXT: Normal range of motion, no obvious deformity SKIN: No rashes or lesions observed on exposed skin. NEURO: Alert and oriented x 4. No focal deficits. Limitations: no limitations Course Vital Signs 01/14/25 01/14/25 16:52 19:02 Temperature 97.6 F Pulse Rate 74 60 Respiratory 20 18 Rate Blood Pressure 122/66 132/56 O2 Sat by Pulse 96 97 Oximetry Medical Decision Making - Medical Decision Making Was pt. sent in by a medical professional or institution (, PA, UPHOLSTERY TECHNICIAN, urgent care, hospital, or senior care...) When possible be specific @ -No Did you speak to anyone other than the patient for history (EMS, parent, family, police, friend...)? What history was obtained from this source @ -Spoke with EMS who provided the history at the scene with the passive suicidal statements and apparent delusions. Did you review nursing and triage notes (agree or disagree)? Why? @ -I reviewed and agree with nursing and triage notes Were old charts reviewed (outside hosp., previous admission, EMS record, old EKG, old radiological studies, urgent care reports/EKG's, senior care records)? Report findings @ -No old charts were reviewed Differential Diagnosis (chest pain, altered mental status, abdominal pain women, abdominal pain men, vaginal bleeding, weakness, fever, dyspnea, syncope, headache, dizziness, GI bleed, back pain, seizure, CVA, palpatations, mental health, musculoskeletal)? @ -Differential Mental Health Depression, anxiety, bipolar, psychosis, schizophrenia, borderline personality, situational depression, adjustment disorder, behavioral disorder, brain tumor, malingering, substance abuse, encephalopathy, medication reaction, dementia, hypothyroidism, degenerative neurologic disorder, lupus.... This is not meant to be all-inclusive list EKG interpreted by me (3pts min.). @ -As above X-rays interpreted by me (1pt min.). @ -Chest x-ray showed no obvious acute cardiopulmonary process. CT interpreted by me (1pt min.). @ -CT brain revealed no obvious acute intracranial process. U/S interpreted by me (1pt. min.). @ -None done What testing was considered but not performed or refused? (CT, X-rays, U/S, l abs)? Why? @ -None What meds were considered but not given or refused? Why? @ -None Did you discuss the management of the patient with other professionals (professionals i.e. , PA, UPHOLSTERY TECHNICIAN, lab, RT, psych nurse, psychotherapist social worker, family lawyer, teacher, community service officer coordinator, behavioral health case manager)? Give summary @ -EPS notified of the consult. Patient does meet inpatient geriatric psychiatric criteria. Was smoking cessation discussed for >3mins.? @ -No Was critical care preformed (if so, how long)? @ -No Were there social determinants of health that impacted care today? How? (Homelessness, low income, unemployed, alcoholism, drug addiction, transportation, low edu. Level, literacy, decrease access to med. care, longterm, rehab)? @ -No Was there de-escalation of care discussed even if they declined (Discuss DNR or withdrawal of care, Hospice)? DNR status @ -No What co-morbidities impacted this encounter? (DM, HTN, Smoking, COPD, CAD, Cancer, CVA, ARF, Chemo, Hep., AIDS, mental health diagnosis, sleep apnea, mo rbid obesity)? @ -Mental health illness Was patient admitted / discharged? Hospital course, mention meds given and route, prescriptions, significant lab abnormalities, going to OR and other pertinent info. @ -Patient presents emergency department for mental health evaluation. Made passive suicidal statements. Suicide precautions ordered. Patient appears to be delusional as well. Overall poor historian of what has been going on at home. Therefore as I have not evaluated the patient previously we will obtain general labs as well as CT brain considering his history of closed head injury. He was in agreement this plan. Vitals are within acceptable limits. EKG showed no signs of acute ischemia. Imaging unremarkable. Laboratory studies are all within acceptable limits. Alcohol level is undetectable. At this time, patient is medically cleared for evaluation by psychiatry. Disposition pending psychiatric evaluation. EPS was notified of the consult. They did evaluate the patient after discussion, does meet inpatient geriatric psychiatric criteria. Patient will be admitted to inpatient geriatric psych. Clinical certificate completed by myself. Undiagnosed new problem with uncertain prognosis? @ -No Drug Therapy requiring intensive monitoring for toxicity (Heparin, Nitro, Insulin, Cardizem)? @ -No Were any procedures done? @ -No Diagnosis/symptom? @ -Psychosis, delusions, suicidal ideations Acute, or Chronic, or Acute on Chronic? @ -Acute Uncomplicated (without systemic symptoms) or Complicated (systemic symptoms)? @ -Complicated Side effects of treatment? @ -No Exacerbation, Progression, or Severe Exacerbation? @ -No Poses a threat to life or bodily function? How? (Chest pain, [place], [place], pneumonia, PE, COPD, DKA, ARF, appy, cholecystitis, CVA, Diverticulitis, Homicidal, Suicidal, threat to staff... and all critical care pts) @ -Potentially, yes - Lab Data Result diagrams: 01/14/25 16:59 01/14/25 16:59 Lab Results 01/14/25 01/14/25 01/14/25 Range/Units 16:59 16:59 16:59 WBC 9.6 (3.8-10.6) k/uL RBC 4.23 L (4.30-5.90) m/uL Hgb 13.3 (13.0-17.5) gm/dL Hct 39.4 (39.0-53.0) % MCV 93.0 (80.0-100.0) fL MCH 31.5 (25.0-35.0) pg MCHC 33.9 (31.0-37.0) g/dL RDW 13.4 (11.5-15.5) % Plt Count 214 (150-450) k/uL MPV 6.9 Neutrophils % 57 % Lymphocytes % 32 % Monocytes % 5 % Eosinophils % 4 % Basophils % 1 % Neutrophils # 5.4 (1.3-7.7) k/uL Lymphocytes # 3.1 (1.0-4.8) k/uL Monocytes # 0.5 (0-1.0) k/uL Eosinophils # 0.4 (0-0.7) k/uL Basophils # 0.0 (0-0.2) k/uL PT 10.9 (10.0-12.5) sec INR 1.0 (<1.2) APTT 23.0 (22.0-30.0) sec Sodium 141 (137-145) mmol/L Potassium 4.9 (3.5-5.1) mmol/L Chloride 107 (98-107) mmol/L Carbon Dioxide 21 L (22-30) mmol/L Anion Gap 13 mmol/L BUN 41 H (9-20) mg/dL Creatinine 1.17 (0.66-1.25) mg/dL Est GFR (CKD-EPI)AfAm 65 (>60 ml/min/1.73 sqM) Est GFR (CKD-EPI)NonAf 57 (>60 ml/min/1.73 sqM) Glucose 135 H (74-99) mg/dL POC Glucose (mg/dL) (70-110) mg/dL POC Glu Lens Block Gauger ID Calcium 9.6 (8.4-10.2) mg/dL Total Bilirubin 0.7 (0.2-1.3) mg/dL AST 30 (17-59) U/L ALT 20 (4-49) U/L Alkaline Phosphatase 67 (38-126) U/L Total Protein 8.1 (6.3-8.2) g/dL Albumin 4.5 (3.5-5.0) g/dL Urine Color Urine Appearance (Clear) Urine pH (5.0-8.0) Ur Specific [place] (1.001-1.035) Urine Protein (Negative) Urine Glucose (UA) (Negative) Urine Ketones (Negative) Urine Blood (Negative) Urine Nitrite (Negative) Urine Bilirubin (Negative) Urine Urobilinogen (<2.0) mg/dL Ur Leukocyte Esterase (Negative) Urine RBC (0-5) /hpf Urine WBC (0-5) /hpf Ur Squamous Epith Cells (0-4) /hpf Hyaline Casts (0-2) /lpf Urine Mucus (None) /hpf Urine Opiates Screen (NotDetected) Ur Oxycodone Screen (NotDetected) Urine Methadone Screen (NotDetected) Ur Barbiturates Screen (NotDetected) U Tricyclic Antidepress (NotDetected) Ur Phencyclidine Scrn (NotDetected) Ur Amphetamines Screen (NotDetected) U Methamphetamines Scrn (NotDetected) U Benzodiazepines Scrn (NotDetected) Urine Cocaine Screen (NotDetected) U Marijuana (THC) Screen (NotDetected) Serum Alcohol <10 mg/dL SARS-CoV-2 (PCR) (Not Detectd) 01/14/25 01/14/25 01/14/25 Range/Units 17:06 20:00 20:00 WBC (3.8-10.6) k/uL RBC (4.30-5.90) m/uL Hgb (13.0-17.5) gm/dL Hct (39.0-53.0) % MCV (80.0-100.0) fL MCH (25.0-35.0) pg MCHC (31.0-37.0) g/dL RDW (11.5-15.5) % Plt Count (150-450) k/uL MPV Neutrophils % % Lymphocytes % % Monocytes % % Eosinophils % % Basophils % % Neutrophils # (1.3-7.7) k/uL Lymphocytes # (1.0-4.8) k/uL Monocytes # (0-1.0) k/uL Eosinophils # (0-0.7) k/uL Basophils # (0-0.2) k/uL PT (10.0-12.5) sec INR (<1.2) APTT (22.0-30.0) sec Sodium (137-145) mmol/L Potassium (3.5-5.1) mmol/L Chloride (98-107) mmol/L Carbon Dioxide (22-30) mmol/L Anion Gap mmol/L BUN (9-20) mg/dL Creatinine (0.66-1.25) mg/dL Est GFR (CKD-EPI)AfAm (>60 ml/min/1.73 sqM) Est GFR (CKD-EPI)NonAf (>60 ml/min/1.73 sqM) Glucose (74-99) mg/dL POC Glucose (mg/dL) 127 H (70-110) mg/dL POC Glu Lens Block Gauger ID [facility] Calcium (8.4-10.2) mg/dL Total Bilirubin (0.2-1.3) mg/dL AST (17-59) U/L ALT (4-49) U/L Alkaline Phosphatase (38-126) U/L Total Protein (6.3-8.2) g/dL Albumin (3.5-5.0) g/dL Urine Color Light Yellow Urine Appearance Cloudy (Clear) Urine pH 5.5 (5.0-8.0) Ur Specific [place] 1.021 (1.001-1.035) Urine Protein Negative (Negative) Urine Glucose (UA) Negative (Negative) Urine Ketones Negative (Negative) Urine Blood Negative (Negative) Urine Nitrite Negative (Negative) Urine Bilirubin Negative (Negative) Urine Urobilinogen <2.0 (<2.0) mg/dL Ur Leukocyte Esterase Large H (Negative) Urine RBC 1 (0-5) /hpf Urine WBC 44 H (0-5) /hpf Ur Squamous Epith Cells 1 (0-4) /hpf Hyaline Casts 3 H (0-2) /lpf Urine Mucus Rare H (None) /hpf Urine Opiates Screen Not Detected (NotDetected) Ur Oxycodone Screen Not Detected (NotDetected) Urine Methadone Screen Not Detected (NotDetected) Ur Barbiturates Screen Not Detected (NotDetected) U Tricyclic Antidepress Not Detected (NotDetected) Ur Phencyclidine Scrn Not Detected (NotDetected) Ur Amphetamines Screen Not Detected (NotDetected) U Methamphetamines Scrn Not Detected (NotDetected) U Benzodiazepines Scrn Not Detected (NotDetected) Urine Cocaine Screen Not Detected (NotDetected) U Marijuana (THC) Screen Not Detected (NotDetected) Serum Alcohol mg/dL SARS-CoV-2 (PCR) (Not Detectd) 01/14/25 Range/Units 22:33 WBC (3.8-10.6) k/uL RBC (4.30-5.90) m/uL Hgb (13.0-17.5) gm/dL Hct (39.0-53.0) % MCV (80.0-100.0) fL MCH (25.0-35.0) pg MCHC (31.0-37.0) g/dL RDW (11.5-15.5) % Plt Count (150-450) k/uL MPV Neutrophils % % Lymphocytes % % Monocytes % % Eosinophils % % Basophils % % Neutrophils # (1.3-7.7) k/uL Lymphocytes # (1.0-4.8) k/uL Monocytes # (0-1.0) k/uL Eosinophils # (0-0.7) k/uL Basophils # (0-0.2) k/uL PT (10.0-12.5) sec INR (<1.2) APTT (22.0-30.0) sec Sodium (137-145) mmol/L Potassium (3.5-5.1) mmol/L Chloride (98-107) mmol/L Carbon Dioxide (22-30) mmol/L Anion Gap mmol/L BUN (9-20) mg/dL Creatinine (0.66-1.25) mg/dL Est GFR (CKD-EPI)AfAm (>60 ml/min/1.73 sqM) Est GFR (CKD-EPI)NonAf (>60 ml/min/1.73 sqM) Glucose (74-99) mg/dL POC Glucose (mg/dL) (70-110) mg/dL POC Glu Lens Block Gauger ID Calcium (8.4-10.2) mg/dL Total Bilirubin (0.2-1.3) mg/dL AST (17-59) U/L ALT (4-49) U/L Alkaline Phosphatase (38-126) U/L Total Protein (6.3-8.2) g/dL Albumin (3.5-5.0) g/dL Urine Color Urine Appearance (Clear) Urine pH (5.0-8.0) Ur Specific [place] (1.001-1.035) Urine Protein (Negative) Urine Glucose (UA) (Negative) Urine Ketones (Negative) Urine Blood (Negative) Urine Nitrite (Negative) Urine Bilirubin (Negative) Urine Urobilinogen (<2.0) mg/dL Ur Leukocyte Esterase (Negative) Urine RBC (0-5) /hpf Urine WBC (0-5) /hpf Ur Squamous Epith Cells (0-4) /hpf Hyaline Casts (0-2) /lpf Urine Mucus (None) /hpf Urine Opiates Screen (NotDetected) Ur Oxycodone Screen (NotDetected) Urine Methadone Screen (NotDetected) Ur Barbiturates Screen (NotDetected) U Tricyclic Antidepress (NotDetected) Ur Phencyclidine Scrn (NotDetected) Ur Amphetamines Screen (NotDetected) U Methamphetamines Scrn (NotDetected) U Benzodiazepines Scrn (NotDetected) Urine Cocaine Screen (NotDetected) U Marijuana (THC) Screen (NotDetected) Serum Alcohol mg/dL SARS-CoV-2 (PCR) Not Detected (Not Detectd) - EKG Data -: EKG Interpreted by Me EKG Comments: 12-lead Electrocardiogram Interpretation Note EKG was reviewed and interpreted by myself. 12-lead ECG performed at 1707 is interpreted by me as revealing normal sinus rhythm at a rate of 76 beats per minute. Left axis deviation. WI interval is 250 ms, QRS duration is 124 ms, QTc is 424 ms.. There were no ST or T wave abnormalities to suggest myocardial ischemia or injury. R wave progression across the precordium was satisfactory. By my interpretation this EKG is non-diagnostic for acute ischemia. Disposition Clinical Impression: Psychosis, Suicidal ideation, Delusions Disposition: TRANSFER TO PSYCH HOSP/UNIT Condition: Stable Referrals: Jimmy Michele DO [Primary Care Provider] - 1-2 days
--- NOTE | 2025-01-14 18:37 | CT ---
EXAMINATION TYPE: CT brain wo con DATE OF EXAM: 01/14/2025 6:02 PM COMPARISON: 07/09/2024 CLINICAL INDICATION: Male, 84 years old with history of Altered mental status, ams TECHNIQUE: CT of the brain is performed utilizing 3 mm thick sections through the posterior fossa and 3 mm thick sections through the remaining calvarium. Study is performed within 24 hours of arrival to the hospital. Contrast used: mL of , (none if empty) CT DLP: 1174.9 mGycm, Automated exposure control for dose reduction was used. FINDINGS: No abnormal hyperdensity is present to suggest an acute intracranial hemorrhage. No mass lesion is evident. No acute infarcts are evident. Moderate to prominent periventricular white matter hypodensity is pres ent likely on the basis of chronic white matter ischemic changes. Ventricles and sulci are prominent for the patient age. There is some fluid within the right sphenoid sinus. Minimal mucosal thickening is through scattered ethmoid air cells. Remaining paranasal sinuses and mastoid air cells are clear. IMPRESSION: 1. Prominent periventricular white matter hypodensity likely on the basis of chronic white matter isc hemic changes with atrophy. 2. No acute intracranial process. Follow-up MRI can be performed as clinically indicated. [facility], , 01/14/2025 6:35 PM
[2025-01-14 19:06] VITALS: RESP 18
[2025-01-14 20:27] LABS: Appearance,Urine Cloudy (Clear); Bilirubin,Urine Negative (Negative); Blood,Urine Negative (Negative); Color,Urine Light Yellow; Glucose,Urine (UA) Negative (Negative); Hyaline Casts,Urine 3 /lpf (0-2); Ketones,Urine Negative (Negative); Leukocyte Esterase,Urine Large (Negative); Mucus,Urine Rare /hpf; Nitrite,Urine Negative (Negative); PH, Urine 5.5 (5.0-8.0); Protein,Urine Negative (Negative); RBC,Urine 1 /hpf (0-5); Specific Gravity,Urine 1.021 (1.001-1.035); Squamous Epithelial Cell,Urine 1 /hpf (0-4); Urobilinogen,Urine <2.0 mg/dL (<2.0); WBC,Urine 44 /hpf (0-5)
[2025-01-14 20:39] LABS: Amphetamine Screen,Urine Not Detected (NotDetected); Benzodiazepines Screen,Urine Not Detected (NotDetected); Cocaine Screen,Urine Not Detected (NotDetected); Opiate Screen,Urine Not Detected (NotDetected); Phencyclidine Screen,Urine Not Detected (NotDetected); Urn Cannabinoid Scrn Not Detected (NotDetected)
[2025-01-14 20:40] LABS: Barbiturate Screen,Urine Not Detected (NotDetected); Methadone Screen, Urine Not Detected (NotDetected); Oxycodone Screen, Urine Not Detected (NotDetected); Tricyclic Antidepressant,Urine Not Detected (NotDetected)
[2025-01-14] MEDS ORDERED: traMADol 50 MG TAB PO PRN (22:53)
[2025-01-14] MEDS ORDERED: ACETAMINOPHEN TAB 325 MG TAB PO PRN (22:53)
[2025-01-15] MEDS: TAMSULOSIN 0.4 MG CAP.ER.24H PO SCH (08:32)
[2025-01-15] MEDS: PARoxetine 20 MG TAB PO SCH (08:32)
[2025-01-15] MEDS: lamoTRIgine 25 MG TAB PO SCH (08:32)
[2025-01-15] MEDS: FOLIC ACID 1 MG TAB PO SCH (08:33)
[2025-01-15] MEDS: ESCITALOPRAM 10 MG TAB PO SCH (08:34)
[2025-01-15] MEDS: levETIRAcetam 500 MG TAB PO SCH (08:34)
[2025-01-15] MEDS: FERROUS SULFATE 325 MG TAB PO SCH (08:34)
[2025-01-15] MEDS: LORazepam 2 MG/ML INJ IV STA (10:01)
[2025-01-15 10:09] VITALS: TEMP 97.4
[2025-01-15 16:49] VITALS: BP 134/76; PULSE 77
== END 2025-01-15 16:38 ==
LOC: SUPCPDRO 16:47 → EC 16:47
DX: R45.851 Suicidal ideations (principal); F22 Delusional disorders; F29 Unspecified psychosis not due to a substance or known physiological condition; Z87.891 Personal history of nicotine dependence; Z88.0 Allergy status to penicillin
CPT/HCPCS: 82075; 36415; 93005; 80053; 85025; 85610; 85730; 81001; 80306; 87635; 71046; 70450; 99285; 96374; 96361 ×2; G0480; J2060; 80320